=== PATIENT | female | born 2005 | race Caucasian/White ===

== ENCOUNTER 2024-07-04 13:47 | Emergency (ER) | payer MEDICAID, SELFPAY ==
[2024-07-04] VITALS (16 sets, daily range): BP systolic 112–123; BP diastolic 68–86; PULSE 100–132; RESP 12–28; TEMP 36.7–36.9; O2SAT 98–100
--- NOTE | 2024-07-04 14:00 | RT.EKG_ITS ---
APPROVED REPORT Exam: Resting ECG Reason for Exam: CHEST PAIN Patient Location: E HR:117 bpm ECG Measurements Heart Rate 117 AXIS VT 140 P 49 QRSd 68 QRS 27 QT 312 T 19 QTc 436 Conclusion Sinus tachycardia 117 normal axis no stemi
--- NOTE | 2024-07-04 14:27 | W.ED.GENAD ---
Discharge Plan Disposition Patient Disposition: Home Discharge Details Clinical Impression: Vomiting affecting , Chest pain, Shortness of breath Primary Care Provider: Unknown,Unknown ED Provider: Nolvia Rogers Home Meds and New Rx's Prescriptions: New ondansetron 4 mg tablet,disintegrating 4 mg PO Q6H PRN (Reason: nausea and vomiting) Qty: 30 0RF Discharge Instructions Stand Alone Forms: Work Release Discharge Data Discharge Date/Time-TO BE ENTERED AT DEPARTURE: 07/04/24 15:39 HPI General Date/Time Provider Initiated Documentation: 07/04/24 14:05. Limitations to Documentation: no limitations. Information obtained by: patient. HPI Narrative: 27-year-old female with no significant past medical history currently G1, P0 at 19 weeks followed by [facility] presents for evaluation of nausea vomiting and cramping. She reports that starting last night had vomiting. She had persistent vomiting throughout the night. She does not have any nausea medication at home. She has not had vomiting problems throughout her . She denies any diarrhea. She does report multiple sick contacts in her family that have had vomiting illness recently. She reports this morning she was having some cramping in her lower back or lower abdomen. Denies any dysuria, denies any bleeding. Does have active movement. She also endorses some chest pain that has been ongoing for the last hour. She has difficulty describing the chest pain. It is not associated with shortness of breath that she has noted that she has been having shortness of breath throughout her . Related Data Home Medications ?Medication ?Instructions ?Recorded ?Confirmed ondansetron 4 mg disintegrating 4 mg PO Q6H PRN nausea and 07/04/24 tablet vomiting #30 tabs Previous Rx's ?Medication ?Instructions ?Recorded ondansetron 4 mg disintegrating 4 mg PO Q6H PRN nausea and 07/04/24 tablet vomiting #30 tabs Allergies Allergy/AdvReac Type Severity Reaction Status Date / Time adhesive Allergy Mild rash Verified 07/04/24 13:57 General Stated Complaint: Nausea/Vomit/Diar SHWETA: 3 Exam Narrative Exam Narrative: Review of Systems: All systems reviewed & are unremarkable except as noted in HPI and below Well-developed, no acute distress NCAT Moist mucous membranes Tachycardic Unlabored respiratory effort clear bilaterally Nondistended abdomen, soft nontender. heart rate 156 Extremities w/o edema Course Vital Signs Vital signs: Vital Signs Temperature 36.7 C 07/04/24 13:51 Pulse 132 H 07/04/24 13:51 Respiratory Rate 20 07/04/24 13:51 Blood Pressure 122/86 07/04/24 13:51 Pulse Oximetry 98 07/04/24 13:51 Temperature 36.7 C 07/04/24 13:51 Temperature Source Temporal Artery Scan 07/04/24 13:51 Pulse 132 H 07/04/24 13:51 Respiratory Rate 20 07/04/24 13:51 Blood Pressure 122/86 07/04/24 13:51 Blood Pressure Position Sitting 07/04/24 13:51 Pulse Oximetry 98 07/04/24 13:51 Oxygen Delivery Method Room Air 07/04/24 13:51 Oxygen Flow Rate 0 07/04/24 13:51 Pain Level 3 07/04/24 13:51 Medical Decision Making Emergent evaluation of vomiting. Patient is also endorsing some lower back and lower abdomen cramping though she does not appear to have any signs of active labor. She is also endorsing some chest pain and shortness of breath. She has noted to be tachypneic. Initial differential includes dehydration, electrolyte derangement, viral GI illness, low suspicion for ACS or pulmonary embolism. Will get lab work. Give antiemetic and continue oral hydration. Lab work reviewed, mild leukocytosis though not concerning given . Electrolytes without derangement. Urinalysis without infection or bacteria opponent is undetectable. D-dimer elevation is not concerning given years criteria and adjusted cutoff for . The patient is tolerating p.o. Recommend starting Unisom and B6 as previously prescribed by her OB provider. I have also sent Zofran to the pharmacy as needed. I recommend close follow-up with her COMMUNITY DEVELOPMENT PLANNER as needed for any ongoing symptoms. Quality:SDOH Health Related Social Needs: No Data to Display PFSH All Active Problems (Updated 07/04/24 @ 15:27 by Nolvia Rogers MD) Shortness of breath (Acute) Chest pain (Acute) Vomiting affecting (Acute) Social History Smoking/Tobacco Use Status: Never Smoking risk assessment performed?: Yes Alcohol Intake: never Drug use: Never Substance use type: does not use
[2024-07-04 14:38] LABS: Abs Immature Grans 0.12 10^3/uL (0.0-0.06); Absolute Basophil Count 0.03 10^3/uL (0.0-0.2); Absolute Eosinophil Count 0.01 10^3/uL (0.0-0.7); Absolute Monocyte Count 0.56 10^3/uL (0.1-0.8); Basophils % 0.2 %; Eosinophils % 0.1 %; HGB 13.2 g/dL (11.2-15.7); Immature Grans % 0.9 %; Lymphocytes % 3.9 %; MCH 29.3 pg (27.0-33.0); MCV 89 fL (80-95); MPV 9.5 fL (8.0-11.0); Monocytes % 4.3 %; Neutrophils % 90.6 %; Platelet Count 311 10^3/uL (130-400); RDW 12.8 % (11.7-14.6); RDW-SD 42.1 fL; WBC 12.92 10^3/uL (4.4-10.8)
[2024-07-04 14:39] LABS: Absolute Neutrophil Count 11.71 10^3/uL (1.2-6.7)
[2024-07-04] MEDS: Ondansetron 4 MG/2 ML VIAL IVP (14:44)
[2024-07-04 14:49] LABS: Bilirubin Negative (Negative); Blood Negative (Negative); Clarity Clear (Clear); Glucose Negative (Negative); Ketones 15 mg/dL (Negative); Leukocyte Esterase Negative (Negative); Nitrite Negative (Negative); Specific Gravity >= 1.030 (1.005-1.025); Urobilinogen 0.2 mg/dL (Up to 0.2)
[2024-07-04 14:58] LABS: ALT 15 U/L (14-59); AST 17 U/L (15-37); Alkaline Phosphatase 50 U/L (46-116); BUN 10 mg/dL (7-18); Bilirubin, Total 0.38 mg/dL (0.2-1.0); CREATININE 0.8 mg/dL (0.55-1.02); Calcium 9.1 mg/dL (8.5-10.1); Chloride 102 mmol/L (98-107); Estimated GFR 108.11 (mL/min/1.73m2); Glucose 86 mg/dL (74-106); Magnesium 1.7 mg/dL (1.8-2.4); Potassium 3.9 mmol/L (3.5-5.1); Sodium 138 mmol/L (136-145); Total Protein 7.4 g/dL (6.4-8.2)
[2024-07-04 15:01] LABS: Troponin I < 4 ng/L (<or=51)
[2024-07-04 15:06] LABS: D-Dimer 863 ng/mlFEU (<500)
[2024-07-04] MEDS: Magnesium Oxide 400 MG TAB PO (15:27)
== END 2024-07-04 15:39 | disposition home or self-care (01) ==
PROVIDERS: Emergency Provider Emergency Medicine
DX: O21.0 Mild hyperemesis gravidarum (principal); Z3A.19 19 weeks gestation of pregnancy
CPT/HCPCS: 36415; 80053; 93005; 96374; 99284; 81003; 83735; 84484; 85025; 85379; 93010; J2405

== ENCOUNTER 2024-07-13 15:35 | Outpatient (CLI) | payer MEDICAID, SELFPAY ==
[2024-07-13 15:24] LABS: HCT 37.8 % (36.0-46.0); HGB 12.5 g/dL (11.2-15.7); MCH 29.5 pg (27.0-33.0); MCHC 33.1 % (32.0-36.0); MCV 89 fL (80-95); MPV 9.1 fL (8.0-11.0); Platelet Count 404 10^3/uL (130-400); RBC 4.24 10^6/uL (3.93-5.22); RDW 12.9 % (11.7-14.6); WBC 17.82 10^3/uL (4.4-10.8)
== END 2024-07-13 15:36 | disposition home or self-care (01) ==
LOC: LBO 15:41
PROVIDERS: Visit Provider Advanced Practice Midwife
DX: Z34.92 Encounter for supervision of normal pregnancy, unspecified, second trimester (principal)
CPT/HCPCS: 36415; 85027

== ENCOUNTER 2024-07-13 15:38 | Outpatient (REF) | payer MEDICAID, SELFPAY ==
[2024-07-13 17:09] LABS: *AMPHETAMINES SCREEN URINE Negative (Negative); *BARBITURATES SCREEN URINE Negative (Negative); *BENZODIAZEPINES SCREEN URINE Negative (Negative); Cannabinoids THC Negative (Negative); Cocaine Screen,Urine Negative (Negative); METHADONE URINE SCREEN Negative (Negative); OPIATES URINE SCREEN Negative (Negative)
[2024-07-13 17:10] LABS: Tricyclic Antidepressants Negative (Negative)
[2024-07-15 11:30] LABS: Fentanyl Scr w/Rfx Confirm Negative ng/mL (<1)
[2024-07-21 11:42] LABS: Buprenorphine Negative ng/mL (Cutoff: 5.0); Norbuprenorphine Negative ng/mL (Cutoff: 2.5)
== END 2024-07-13 15:39 | disposition home or self-care (01) ==
LOC: LBN 15:38
PROVIDERS: Visit Provider Advanced Practice Midwife
DX: Z34.92 Encounter for supervision of normal pregnancy, unspecified, second trimester (principal); Z3A.20 20 weeks gestation of pregnancy
CPT/HCPCS: 80307; 80348; 87086; 87480; 87510; 87660

== ENCOUNTER 2024-07-25 01:52 | Outpatient (CLI) | payer MEDICAID, SELFPAY ==
--- NOTE | 2024-07-25 06:45 | DI.US_ITS ---
Exam(s) US OB 2-3 TRIMESTER EXAM: US OB 2-3 TRIMESTER CLINICAL HISTORY: SURVEY,Z34.90. TECHNIQUE: Transabdominal obstetrical ultrasound was performed. COMPARISON: No exams were available for comparison FINDINGS: There is a single viable intrauterine gestation with cardiac activity identified-148 bpm. Amniotic fluid: There is a normal amount of amniotic fluid. Placental location: The placenta is posterior grade 1,with no evidence of placenta previa.The distanc e from the tip of the placenta to the internal cervical os is 6.9 cm. The distant from the margin of the placenta to the cord insertion is 3.9 cm. ANATOMY: A 3 vessel umbilical cord is seen. A four-chamber cardiac view was obtained. Right and left ventricular outflow tracts were imaged. There are no obvious abnormalities of the spinal column evident. There is no obvious abnormal ity of the anterior abdominal wall. stomach and urinary bladder are identified and there is no evidence of hydronephrosis. No abnormalities of the upper lip region are identified. No evidence of choroid plexus cysts i n the brain. Was not able to adequately visualize the left upper extremity primarily the left hand during this exa mination. Dating parameters place this at approximately 22 weeks and 5 days gestational age. BPD measures 23 weeks and 0 days HC measures 23 weeks and 0 days AC measures 22 weeks and 3 days FL measures 22 weeks and 1 day Estimated weight is 501 gm-1 pound, 2 ounces Fetus is at the 42 percentile on the Hadlock scale. IMPRESSION:: Single viable intrauterine gestation which is approximately 22 weeks and 5 days gestati onal age, implying an RUFINO of 11/23/2024. There are no obvious anomalies evident on today's study. However, it was not possible during to day's exam to visualize the distal aspect of the left upper extremity and this patient has been sched uled to return for further imaging on 07/29/2024. The placenta is posterior with no evidence of placenta previa. There is a normal amount of amniotic fluid. DATA REPOSITORY:
== END 2024-07-25 02:12 ==
LOC: DI 01:53
PROVIDERS: Visit Provider Advanced Practice Midwife
DX: Z34.92 Encounter for supervision of normal pregnancy, unspecified, second trimester (principal); Z3A.27 27 weeks gestation of pregnancy
CPT/HCPCS: 76805

== ENCOUNTER 2024-07-29 00:17 | Outpatient (CLI) | payer MEDICAID, SELFPAY ==
--- NOTE | 2024-07-29 | DI.US_ITS ---
Exam(s) US OB F/U FACIAL/LVOT/RVOT EXAM: US OB F/U FACIAL/LVOT/RVOT CLINICAL HISTORY: F/u survey, Lt arm/hand. COMPARISON: US US OB 2-3 TRIMESTER from 07/25/2024 TECHNIQUE: Transabdominal obstetrical ultrasound performed. FINDINGS: Sonographic images demonstrate a single intrauterine gestation. Heart Rate: 151 position: Breech Placental location: Posterior no evidence of previa. The of upper extremities were well seen on today's exam. No abnormality is demonstrated. profile appears normal. Amniotic fluid : Amount of fluid is visually within normal limits. IMPRESSION: No abnormality identified in the bilateral upper extremities. DATA REPOSITORY:
--- OUTSIDE RECORDS SUMMARY | 2024-07-29 00:20 | XMS_ITS | Encounter Summary ---
Author Organization [facility] [place] [address] Care Team Providers Care Melt Superintendant Name Role Phone Edilma Cornejo MD Primary Care Provider [phone] Encounter Details Date Type Department Care Team (Late st Contact Info) Description 07/07/2024 Telephone Obstetrics [place] [phone] Nighat Edwards Social History Tobacco Use Types Packs/Day Years Used Date Smoking Tobacco: Never Passive Smoke Exposure: Yes Smokeless Tobacco: Never Alcohol Use Standard Drinks/Week Comments No 0 (1 standard drink = 0.6 oz pur e alcohol) B1300 Health Literacy Answer Date Recor ded How often do you need to hav e someone help you when you read instructions, pamphlets, or other written material from your doctor or pharmacy? Never 04/15/2024 [facility] Utilities Answer Date Recorded In the past 12 months has e electric, gas, oil, or water company threatened to shut off services in your home? No 04/15/2024 Humiliation, Afraid, Rape, and Kick questionnair e Answer Date Recorded Within the last year, have y ou been afraid of your partner or ex-partner? No 04/15/2024 Within the last year, have y ou been humiliated or emotionally abused in other ways by your partner or ex-partner? Patient declined 04/15/2024 Within the last year, have y ou been kicked, hit, slapped, or otherwise physically hurt by your partner or ex-partner? No 04/15/2024 Within the last year, have y ou been raped or forced to have any kind of sexual activity by your partner or ex-partner? No 04/15/2024 Overall Financial Resource Strain (CARDIA) Answe r Date Recorded How hard is it for you to pa y for the very basics like food, housing, medical care, and heating? Patient declined 04/15/2024 Hunger Vital Sign Answer Date Recorded Within the past 12 months, y ou worried that your food would run out before you got the money to buy more. Patient declined Within the past 12 months, t he food you bought just didn't last and you didn't have money to get more. Patient declined 06/2023 PRAPARE - Transportation Answer Date Re corded In the past 12 months, has l ack of transportation kept you from medical appointments or from getting medications? No 06/2023 In the past 12 months, has l ack of transportation kept you from meetings, work, or from getting things needed for daily living? No 04/15/2024 Housing Stability Vital Sign Answer Vu e Recorded In the last 12 months, was t here a time when you were not able to pay the mortgage or rent on time? Patient declined 04/15/20 24 In the past 12 months, how m any times have you moved where you were living? 3 04/15/2024 At any time in the [facility] were you [facility] or living in a assisted (including now)? No 04/15/2024 IPV Inpatient Questions Answer Date Recorded Does Anyone Try to Keep You From Having Contact with Others or Doing Things Outside Your Home? no 06/07/2023 Feels Threatened by Someone no 05/16 Feels Unsafe at Home or Work/School no 06/07/2023 Physical Signs of Abuse Present no 06/07/2023 Estimated Date of Delivery Comme nts Yes 11/25/2024 Based on last me nstrual period of 02/19/2024 Sex and Gender Information Value Date Recorded Sex Assigned at Female 07/24/2023 9:35 AM EST Gender Identity Female 07/24/2023 9:35 AM EST Sexual Orientation Straight 07/24/2023 9: 35 AM EST documented as of this encounter Plan of Treatment Upcoming Encounters Date Type Department Care Team (Late st Contact Info) Description 08/08/2024 9:00 AM EST Appointment [address] [phone] Umu Saucedo RN 08/15/2024 10:45 AM EST TH Visit (TeleHealth) Obstetrics and Gynecology at [place] [phone] Dara Kelley MD [facility] OBSTETRICS [place] [address] 11/25/2024 Hospital [place] [phone] Dara Gonzalez MD [facility] OBSTETR[facility] [place] [address] 07/12/2025 1:40 PM EST Office Visit Ophthalmology at [place] [address] Bina Agrawal OD [facility] [place] [address] documented as of this encounter Visit Diagnoses Not on filedocumented in this encounter Care Teams Melt Superintendant Relationship Specialty Start Date End Date Edilma Cornejo MD [facility] [place] [address] PCP - General 12/05/22 documented as of this encounter
--- OUTSIDE RECORDS SUMMARY | 2024-07-29 00:20 | XMS_ITS | Encounter Summary ---
Author Organization [facility] Chantal [place] [address] Care Team Providers Care Gaming Commissioner Name Role Phone Edilma Cornejo MD Primary Care Provider [phone] Encounter Details Date Type Department Care Team (Latest Contact Info) Description 07/06/2024 Travel Social History Tobacco Use Types Packs/Day Years [...] from your doctor or pharmacy? Never 04/15/2024 [facility] Utilities Answer Date Recorded In the past 12 months has e [employer] gas, oil, or water [employer] threatened to shut off services in your [...] any time in the past 12 m [facility], were you homeless or living in a senior living (including now)? No 04/15/2024 IPV Inpatient Questions [...] Info) Description 08/08/2024 9:00 AM EST Appointment [address] [phone] Umu Saucedo, RN 08/15/2024 10:45 AM EST TH Visit (TeleHealth) Obstetrics [place] [phone] Dara Kelley MD [facility] OBSTETRICS [place] [address] 11/25/2024 Hospital Encounter Birthing [place] [phone] Dara Gonzalez MD [facility] OBSTETRICS [place] [address] 07/12/2025 1:40 PM EST Office Visit Ophthalmology at [place] [phone] Bina Agrawal, JONELLE [facility] [place] [address] documented as of this encounter Visit Diagnoses Not on filedocumented in this encounter Care Teams Gaming Commissioner Relationship Specialty Start Date End Date Edilma Cornejo MD [facility] [place] [address] PCP - General 12/05/22 documented as of this encounter
--- OUTSIDE RECORDS SUMMARY | 2024-07-29 00:20 | XMS_ITS | Encounter Summary ---
Author Organization [facility] [place] [address] Care Team Providers Care Director Operating Room Name Role Phone Edilma Cornejo MD Primary Care Provider [phone] Encounter Details Date Type Department Care Team (Late st Contact Info) Description 07/12/2024 1:00 PM EST Office Visit Obstetrics [place] [phone] Norah Lakhani, TECHNOLOGY INTERNSHIP Anxiety Social History Tobacco Use Types Packs/Day Years [...] from your doctor or pharmacy? Never 04/15/2024 [facility] Utilities Answer Date Recorded In the [...] any time in the past 12 [facility], [facility] you [facility] or living in a [facility] (including now)? No 04/15/2024 [facility] IPV Inpatient Questions Answer Date Recorded Does [...] AM EST documented as of this encounter Progress Notes * LesviaGetachewtamiko Matias, TECHNOLOGY INTERNSHIP - 07/12/2024 1:00 PM EST Outpatient Therapy Visit Note Time Spent: 50 minutes Additional Attendee(s): (identify by relationship to pt.) JUDY Christensen student, patient provides verbal consent for student to join visit CHIEF COMPLAINT/DIAGNOSIS: (symptoms, problem, or other factors providing rationale for today's encounter) Anxiety SUBJECTIVE: Ely is a 19-year-old patient who is 20 weeks and 4 days . Pt reports that the last couple weeks have been very stressful. Ely is planning to move out of her Grandparent's house on Thursday and into her older sister's house with her boyfriend. Pt shares that she will have to transfer her OBGYN care to [facility]. SW encouraged pt to ask new OB if they have mental health support. If not, this quality analyst/technical writer can refer her to counseling associates. SW inquired about how pt. is doing with all this change and Ely reports that she's ready to move out of her grandparents' house because they are always questioning and judging her decisions. Ely reports that this negatively impacts how she feels and makes her feel like, ???a failure?? . Ely shares that she put up a boundary that she does not want her father around her baby unless he is clean. Ely reports that Grandparents didn't agree with that. SW shared that becoming a parent can be healing; a chance to do things differently than how you were raised and keep baby safe from things you were exposed to. Ely was receptive and reports that she is learning to trust her decisions. Ely reports that she does want a relationship with Grandparents but ultimately keeping her baby safe is top priority. Ely shares that she has not spoken with Roland in a month and he hasn't been to an appointment sinceshe was 8 weeks . She shares that she has not initiated contact and he hasn't tried to reach out. Ely shares that she heard from a mutual friend that Roland believes he might not be the father. When SW asked how pt is feeling about this, Ely shares that she does not want him involved if he doesn't want to be. Ely reports that she is hopeful for the future and confident that her baby willhave a loving home. At this point, Ely had a big smile on her face and was excited to share that they have decided on a name for their baby. Ely inquired about the potential of not putting Roland on the certificate but instead putting her boyfriend's name. SW encouraged pt to speak to [place] transactional paralegal before she does this. GOLDEN will send over contact information for [place] transactional paralegal and ???lawline.?? SW encouraged Ely to prioritize self-care this next week and try to pick one obtainable goal. Ely will work towards allowing herself one day to sleep in and not set an alarm. TREATMENT MODALITY: Supportive Counseling OBJECTIVE: Develop coping skills to help with anxiety Navigating co-parenting with father of the baby Processing grief and trauma that she has experienced Building confidence in enforcing boundaries PERTINENT MENTAL STATUS EXAM: Behavior: Calm, cooperative Mood: Normal Affect: appropriate Thought Process: Linear, goal directed Associations: Intact Orientation: X4 Attention/Concentration: WNL Insight: WNL Judgment: WNL Safety Risk assessment: No S/I or H/I indicated ASSESSMENT: (include progress toward goals since last visit and patient's capacity to participate and benefit from continued treatment). Ely is a 19-year-old patient who is 20 weeks and 4 days . Ely shares excitement about finalizing a name for her baby. Ely presents to session overwhelmed with the stressors in her life; moving this week and the constant judgement from grandparents who don't approve of her boyfriend. Elyis working on prioritizing her self-care and learning to trust the decisions she makes. PLAN: Revised goals or interventions: Patient is transitional OB care. Patient plans to discuss resources available with new OB, if none available, this quality analyst/technical writer will place referrals. Currently plan for 2 more visit. [x] No change in estimated length of treatment. Safety Risk Management: (specify plan to manage self harm/suicide/homicide risk findings if present): No indication fo SI/HI. Below discussed with patient as resources available: Call 911 in an Emergency. Call or text 631 or chat [email or web address] For regional Mental Health Crises Services: [facility] Crisis Line text or call Visit [email or web address] for further information [place] Call your local community crisis line at: [place]: Counseling Service [facility] [phone] [place]: [facility] [phone] [place]: [facility] [phone] [place]: [facility] [phone] [place]: [facility] [phone] [place] Guaj[place]: [facility] and Support [phone] [place]: [facility] [phone] on weekdays 8AM-4:30PM and [phone] on nights and weekends [place]: [facility] [place]: [facility] [phone] [place]: [facility] Services [phone] [place]: [facility] Services, [place]: [facility] [place]: [facility] Next Appt: 3-4 weeks Assigned Homework: Mindfulness tools, Self-care Patient Instruction/Education Provided: Verbal Patient understands the plan? [x} Yes * Jazzy Estrada LICSW - 07/12/2024 1:00 PM EST I have reviewed patient chart and discussed this case with JUDY Burgess. I am in agreement with the plan of care as documented. LEWIS Reis Clinical Plans Examiner Department of Psychiatry [facility] [phone] documented in this encounter Plan of Treatment Upcoming Encounters Date Type Department Care Team (Late st Contact Info) Description 08/08/2024 9:00 AM EST Appointment [address] [phone] Umu Saucedo, RN 08/15/2024 10:45 AM EST TH Visit (TeleHealth) Obstetrics and Gynecology at [place] [phone] Dara Kelley MD [facility] OBSTETRICS [place] [address] 11/25/2024 Hospital Encounter Birthing [place] [phone] Dara Gonzalez MD [facility] OBSTETRICS [place] [address] 07/12/2025 1:40 PM EST Office [place] [phone] Bina Agrawal OD [facility] [place] [address] documented as of this encounter Visit Diagnoses Diagnosis Anxiety Anxiety state, unspecified documented in this encounter Care Teams Director Operating Room Relationship Specialty Start Date End Date Edilma Cornejo MD [facility] [place] [address] PCP - General 12/05/22 documented as of this encounter
--- OUTSIDE RECORDS SUMMARY | 2024-07-29 00:20 | XMS_ITS | Clinical Summary ---
Author Organization [facility] Address [facility] [place] [address] Care Team Providers Care Hvac Installer Name Role Phone Edilma Cornejo MD Primary Care Provider [phone] Allergies Active Allergy Reactions Criticality Noted Date Comments Adhesive Bandage Rash Low 12/01/2019 Fabric band-aids Medications Medication Sig Dispensed Refills Start Date End Date Status albuteroL 90 mcg/actuation HFA Aerosol Inhaler Inhale 2 puffs into the lungs every 4 hours as needed for Wheezing. Use with spacer 1 each 5 05/29/2023 Active vitamin with zrluzovo-Pr-Fibx-FA Tablet Take 1 tablet by mouth daily. Active Doxylamine Succinate (Unisom, doxylamine,) 25 mg Tablet Take 1 tablet by mouth nightly. 30 tablet 3 06/02/2024 Active Additional Information Patient not taking.Reported on 07/06/2024 pyridoxine, Vitamin B6, (Vitamin B6) 50 mg tablet Take 1 tablet by mouth daily. 30 tablet 3 06/02/2024 Active Additional Information Patient not taking.Reported on 07/06/2024 Active Problems Problem Noted Date Diagnosed Date care 04/15/2024 Overview (06/02/2024): PNC team: Pod [x] Centering - offered Support person: Roland relationship: father of baby [x] Dating confirmed [x] Blood products accepts [x] Social work/CHW needs: Referred NOB lab review: [x] NOB labs reviewed (T&S, hemogram, Hep B, Hep C, HIV, syphilis, RI) [x] GC/CT [x] Pap- Defer- <21 & no risk factors [x] Urine Cx Risk based labs/meds: [x] ASA Not indicated [x] Screening HgA1c Indicated; reviewed [x] [x] TSH Indicated; reviewed [x] Genetics: Genetics screen: Negative screening questionnaire Carrier screening: Referral to genetics for expanded carrier screening sent, result reviewed [] Aneuploidy screening: NIPT; reviewed [x] 2nd trimester results review: [] Morphology scan screening [] 1 hr GTT (24-28) [] Hemogram [] Repeat syphilis 3rd Trimester: [x] Anesthesia consult: Referred []GBS: PCN allergy: No [] repeat GC/CT if indicated Vaccines: [] TDaP (27-36) [x] Flu vaccine (in season) [] RSV vaccine administered (32-36.6 in season) Counseling [] Childbirth education: [] Contraception (Tubal papers): [] Feeding plan: [] Vp Customer Development: [] meds (hep b, abx, vitk): [] Circumcision: [] planning: [] preferences: unmedicated vaginal delivery Chlamydia infection affecting in first trimester 04/15/2024 Overview (04/21/2024): [facility] 2024. Underwent treatment and partner testing/treatment. Negative SONIDO. [ ] needs 32wk repeat STI screen Assessment & Plan (04/15/2024 4:50 PM EDT): SONIDO performed on 04/15/24 (result pending). Plan for repeat STI testing during second and third trimesters Housing instability 04/15/2024 Overview (04/15/2024): Currently living with grandmother although she is not technically allowed to because she is not on the lease. Father of baby is not able to live with her. She has been looking into alternatives but is overwhelmed. Assessment & Plan (04/15/2024 4:50 PM EDT): Referral placed to social work for resources and support. Asthma 04/15/2024 Overview (04/15/2024): Since childhood; less frequent episodes as adult. Never been hospitalized for exacerbation that she knows of. Occasional PRN albuterol inhaler use. Generalized anxiety disorder 05/19/2023 Overview (04/15/2024): Feels anxiety is stable. Not currently on medications. Engaged in psychotherapy in the past and found it helpful. Open to starting again this . Assessment & Plan (04/15/2024 4:51 PM EDT): Referral placed for [facility] behavioral health for psychotherapy and support Subclinical hypothyroidism 02/06/2022 Overview (06/02/2024): Most recent TSH 3.13 (06/07/2023), FT4 1.21 (10/07/2022) TPO antibody titer >1000 on 02/14/[address] Ponce who suspects she will likely transition to overt hypothyroidism in the near future given highly elevated TPO antibody titer. Not on thyroid medications pre-. Trimester Date TSH Dose 1st 04/15/24 1.87 2nd 06/02/24 3.10 3rd Target Range for TSH in 1st trimester 0.1-2.5 Target Range for TSH in 2nd trimester 0.2-3.0 Target Range for TSH in 3rd trimester 0.3-3.0 Assessment & Plan (04/15/2024 4:54 PM EDT): - Plan for qTrimester TSH screen - Started on levothyroxine 50mcg daily at first visit Depression 10/05/2018 Overview (04/15/2024): Feels mood is stable. Not currently on medications. Engaged in psychotherapy in the past and found it helpful. Open to starting again this . 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 Dedicated scoliosis protocol radiographs last performed 05/2020. No history of surgeries Assessment & Plan (04/15/2024 4:56 PM EDT): Anesthesia consult placed to assess regional anesthesia capabilities for intrapartum planning. Conductive hearing loss, uni lateral with unrestricted hearing on the contralateral side 09/06/2013 Overview (04/15/2024): left with conductive hearing loss; right WNL. Not currently needing hearing aid. Hemivertebra 08/18/2011 Estimated Date of Delivery Comme nts Yes 11/25/2024 Based on last me nstrual period of 02/19/2024 Resolved Problems Problem Noted Date Diagnosed Date Resolved Date Mild recurrent major depression 05/18/2023 04/15/2024 Encounter for female control 10/26/2019 04/15/2024 Overview (10/26/2019): Nexplanon inserted 10/2018 Uses condoms for barrier contraception in addition to nexplanon, these are provided at visits Acne vulgaris 10/26/2019 04/15/2024 Overview (10/26/2019): Facial acne Has expressed interest in trialing medicated formulations, has not consistently used these in the past Benzaclin prescribed 2018 Acute right-sided low back p ain without sciatica 12/20/2018 04/15/2024 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 Both parents have history of drug use. Wears hearing aid 09/06/2013 04/15/2024 Overview (04/23/2016): Wears hearing aid in left year d/t conductive hearing loss. Audiology exam 04/2015 with normal hearing in left ear, does not need to wear hearing aid. F/u with audiology in 1 yr. CIS - Chronic mastoiditis 01/21/2010 Overview (08/20/2010): Left-sided chronic mastoiditis with adhesions, possible cholesteatoma based on Mar [address] findings - involvement of head of ossicles likely contibuting to conductive hearing loss. Sleep disturbances 01/21/2010 4 Overview (10/26/2019): 04/2015: Discussed sleep hygiene, no screens 1 hour before bed 2019: Discussed sleep hygiene again, reinforced limiting screen time before bed Assessment & Plan (01/24/2022 12:22 PM EDT): Sleep hygiene reviewed. Discussed regular meal times, wake and sleep times, outdoor activity Discouraged screen time prior to bed Consider clonidine prn CIS - Acute otitis media 06/15/200609/2014 Overview (08/20/2010): Recurrent, s/p tubes CIS - Constipation 06/15/2006 5 Overview (08/20/2010): Miralax CIS - Bacterial infection of skin 05/29/2005 04/18/2015 Overview (08/20/2010): furuncles-MRSA CIS - Healthcare Maintenance 2004 04/18/2015 Overview (08/20/2010): History of 29 week gestational age prematurity CIS - Congenital scoliosis d ue to bony malformation 06/15/2003 04/15/2024 Overview (08/20/2010): Discovered in period due to resp distress. Normal renal U/S. 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 Followed annually by Dr. Garay. Speech delay 04/18/2015 Bronchopulmonary dysplasia 1 06/18/2014 Encounters Date Type Department Care Team Description 07/18/2024 11:15 AM EST TH Visit (TeleHealth) Obstetrics [place] [address] Rosaline Jacinto MD Premature 07/12/2024 1:00 PM EST Office Visit Obstetrics [place] [address] Norah Lakhani, BARREL CHARRER HELPER Anxiety 07/12/2024 Travel 07/07/2024 Telephone Obstetrics [place] [address] Nighat Edwards 07/06/2024 4:00 PM EST Routine Obstetrics [place] [address] Jasmina Harvey APRN GA: 19w5d 07/06/2024 3:00 PM EST Office Visit Ophthalmology at [place] [phone] Bina Agrawal, OD Emmetropia 07/06/2024 Travel 07/05/2024 Telephone Obstetrics [place] [address] Halle Marquez, RN 07/04/2024 Telephone Obstetrics [place] [address] Halle Marquez, RN 06/30/2024 11:45 AM EST Laboratory Appointment Lab [address] [place] [address] with 18 completed weeks gestation; Fatigue, unspecified type 06/30/2024 10:58 AM EST - 06/30/2024 11:59 PM EST Hospital Encounter Non-[place] [address] Chest pressure Discharge Disposition: Home 06/30/2024 9:00 AM EST Routine Obstetrics [place] [phone] Mariola Escamilla MD GA: 18w6d 06/30/2024 Travel 06/20/2024 Home Care Visit [address] [address] Umu Saucedo RN TELEPHONE ENCOUNTER 06/02/2024 11:15 AM EST Laboratory Appointment Lab [address] [place] [phone] care in first trimester 06/02/2024 9:00 AM EST Routine Obstetrics and Gynecology at [place] [phone] Satinder Livingston MD GA: 14w6d 06/02/2024 Telephone Obstetrics [place] [address] Ling Sewell, RN 06/02/2024 Travel 05/30/2024 Telephone Obstetrics and Gynecology at [place] [phone] Lora Young, RN 05/25/2024 8:18 PM EST - 05/25/2024 10:48 PM EST [place] [phone] Konstantin Rodrigues MD Viral URI Discharge Disposition: Home 05/25/2024 Travel 05/19/2024 2:00 PM EST Notes Only Obstetrics [place] [address] Norah Lakhani, BARREL CHARRER HELPER 05/19/2024 Notes Only Obstetrics [place] [address] Franky Sanchez 05/19/2024 Travel 05/13/2024 1:40 PM EST Routine Obstetrics [place] [address] Myriam King APRN GA: 12w0d 05/13/2024 Travel 05/11/2024 Transcribe Orders eDH Incoming Referrals [phone] [facility] care, antepartum 05/04/2024 3:00 PM EST Office [place] [address] 05/04/2024 11:21 AM EST Anesthesia [place] [address] Nuzhat Cavazos MD 05/04/2024 Travel 05/02/2024 1:00 PM EST Office Visit [facility] [place] [address] Edilma Patel, PA Routine screening for STI (sexually transmitted infection) 05/02/2024 Travel 04/28/2024 11:00 AM EST Notes Only Obstetrics [place] [address] Norah Lakhani, BARREL CHARRER HELPER 04/28/2024 Notes Only Obstetrics [place] [address] Franky Sanchez 04/28/2024 Travel from Last 3 Months Immunizations Name Administration Dates Next Due Covid-19 (Pfizer Comirnaty) 12yrs+ (9201-0244) 05/01/2023 Covid-19 Bivalent (Pfizer Co mirnaty) 12yrs+ (9519-9040) 02/03/2023 Covid-19 Monovalent (Pfizer Comirnaty tran cap) 12yrs+ (8119-0542) 03/27/2021,03/07/2021 DTaP 06/20/2008,04/10/2005 DTaP/Hep B/IPV 2004,2004,2004 HIB PRP-T Conjugate (ActHIB, Hiberix, OmniHib) 04/10/2005,2004,2004,04/26 HPV 9-Valent (Gardasil 9) 04/22/2016,04/17/2015 Hepatitis A Pediatric/Adoles cent (Havrix, Vaqta) 05/12/2017,04/17/2015 Influenza (FluMist) Quadriva lent, Intranasal LIVE 04/17/2015 Influenza Quadrivalent, Pres ervative Free 05/01/2023,04/22/2022,04/03/2021,04/30,04/12/2019,03/29/2018,05/12/2017 ,04/22/2016 Influenza Trivalent, Preservative Free 4 Influenza Vaccine, Whole 04/30/2006,04/16,04/10/2005,07/12 MMR Vaccine LIVE 06/20/2008,01/16/2005 Meningococcal ACWY Polysacch aride Conjugate (Menactra) 04/30/2020 Meningococcal Acwy, Unspecif ied Formulation 04/17/2015 Palivizumab 2004,2004,2004 Pneumococcal 7-Valent Conjug ate (Prevnar 7) 07/18/2005,2004,2004,04/26 Polio Inactivated (IPOL) 06/20/2008 Tdap (Adacel, Boostrix) 04/17/2015 Varicella LIVE (Varivax) 06/20/2008,01/16/2005 Family History Medical History Relation Comments Attention Deficit Hyperactiv ity Disorder Father Bipolar Disorder Father Depression Father Learning Disorder Father Other Father Traumatic brain injury from car accident resulting in left sided paralysis Substance Use Disorder Father Suicide Father Suicide attempts Depression Maternal Aunt Bipolar Disorder Maternal Grandmother Breast Cancer Maternal Grandmother Depression Maternal Grandmother Hyperlipidemia Maternal Grandmother Hypertension Maternal Grandmother Type 2 Diabetes Maternal Grandmother Myocardial Infarction Maternal Uncle 2/2 LA Anxiety Disorder Mother Depression Mother Anxiety Disorder Paternal Grandmother Breast Cancer Paternal Grandmother Cataracts Paternal Grandmother Depression Paternal Grandmother Lactose Intolerance Sister Amblyopia Neg Hx Cancer Neg Hx Celiac Disease Neg Hx Diabetes Neg Hx Glaucoma Neg Hx Heart Disease Neg Hx Inflammatory Bowel Disease Neg Hx Macular Degeneration Neg Hx Migraines Neg Hx Retinal Detachment Neg Hx Strabismus Neg Hx Thyroid Disease Neg Hx Relation Status Comments Father Alive Maternal Aunt Maternal Grandmother Maternal Uncle Mother Alive Paternal Grandfather Paternal Grandmother Alive Sister Social History Tobacco Use Types Packs/Day Years Used Date Smoking Tobacco: Never Passive Smoke Exposure: Yes Smokeless Tobacco: Never Tobacco Cessation:Counseling Given: Not Answered Alcohol Use Standard Drinks/Week Comments No 0 (1 standard drink = 0.6 oz pur e alcohol) B1300 Health Literacy Answer Date Recor ded How often do you need to hav e someone help you when you read instructions, pamphlets, or other written material from your doctor or pharmacy? Never 04/15/2024 [facility] Utilities Answer Date Recorded In the past 12 months has e electric, gas, oil, or water [email or web address] threatened to shut off services in your [...] any time in the past 12 m [facility], were you homeless or living in a penitentiary (including now)? No 04/15/2024 DH IPV Inpatient [...] Orientation Straight 07/24/2023 9: 35 AM EST Last Filed Vital Signs Vital Sign Reading Time Taken Comments Blood Pressure 108/64 07/06/2024 3:40 PM EST Pulse 115 05/25/2024 8:15 PM EST Temperature 37.4 ??C (99.3 ??F) 05/25/2024 8:15 PM ES T Respiratory Rate 20 05/25/2024 8:15 PM EST Oxygen Saturation 100% 05/25/2024 8:15 PM EST Inhaled Oxygen Concentration - - Weight 55.5 kg (122 lb 4.8 oz) 07/06/2024 3:40 P M EST Height 149.9 cm (4' 11) 05/25/2024 8:15 PM EST Body Mass Index 24.7 05/25/2024 8:15 PM EST Plan of Treatment Upcoming Encounters Date Type Department Care Team (Late st Contact Info) Description 08/08/2024 9:00 AM EST Appointment [address] [address] Umu Saucedo, RN 08/15/2024 10:45 AM EST TH Visit (TeleHealth) Obstetrics [place] [phone] Dara Kelley MD [facility] OBSTETRICS [place] [address] 11/25/2024 Hospital [place] [phone] Dara Gonzalez MD [facility] OBSTETRICS [place] [address] 07/12/2025 1:40 PM EST Office [place] [phone] Bina Agrawal OD [facility] [address] Health Maintenance Due Date Last Done Comments Pneumococcal Vaccine: At-Ris k 5-49yrs (1 of 2 - PCV) 01/02/2023 07/18/2005, 2004, 2004, Additional history exists Covid-19 Vaccine ( - 2023-2 5 season) 2024 05/01/2023, 02/03/2023, 03/27/2021, Additional history exists Preventative Health visit 07/22/20242023, 04/22/2022, 12/26/2020, Additional history exists Chlamydia Screening 04/15/2025 04/15/2024, 11/12/2023, 07/22/2023, Additional history exists Tetanus/Diphtheria/Pertussis Vaccines (7 - Td or Tdap) 04/17/2025 04/17/2015, 06/20/2008, 04/10/2005, Additional history exists Hepatitis B vaccine (0-59 yrs) Completed 0 2004, 2004, 2004 HPV vaccine Completed 04/22/2016, 04/17/2015 HIV screen Completed 04/15/2024, 12/2023, 03/11/2023, Additional history exists Hepatitis C Screening Completed 04/15/2024 , 03/11/2023, 04/22/2022 Influenza (Flu) vaccine Completed 04/15/20, 05/01/2023, 04/22/2022, Additional history exists RSV Vaccine (No Doses Required) Completed Procedures Procedure Name Priority Date/Time Associated Diagnosis Comments VAGINITIS/OSIS PANEL ([facility]/APD/NLH/CGP) Routine 06/30/2024 2:18 PM EST Vaginal discharge COMPREHENSIVE METABOLIC PANEL Routine 06/30/2024 11:23 AM EST with 18 completed weeks gestation Fatigue, unspecified type HEMOGRAM Routine 06/30/2024 11:23 AM EST with 18 completed weeks gestation Fatigue, unspecified type EKG 12-LEAD STAT 06/30/2024 11:12 AM EST Chest pressure TSH CASCADE Routine 06/02/2024 10:18 AM EST care in first trimester HIV SCREEN, 4TH GENERATION ([facility]/CGP/[facility]D/[facility])PERF ORMABLE Routine 04/15/2024 3:41 PM EDT care, antepartum HEPATITIS C ANTIBODY Routine 04/15/2024 3:41 PM EDT care, antepartum GC/CHLAMYDIA Routine 04/15/2024 3:24 PM EDT care, antepartum from Last 3 Months or Most Recently Relevant to Health Maintenance Results * Vaginitis/osis Panel ([facility]/APD/NLH/CGP) (06/30/2024 2:18 PM EST) Bacterial Vaginosis Negative Negative, Invalid, Equivocal 07/01/2024 2:36 AM [facility] Berenice sp. Group Negative Negative, Invalid, Equivocal 07/01/2024 2:36 AM [facility] Berenice glabrata PCR Negative Negative, Invalid, Equivocal 07/01/2024 2:36 AM [facility] Trichomonas vaginalis PCR Negative Negative, Invalid, Equivocal 07/01/2024 2:36 AM [facility] Swab VAGINAL STRUCTURE / Unknown Non Blood Collection / Unknown 06/30/2024 2:18 PM EST 06/30/2024 2:52 PM EST [facility] - 07/01/2024 2:36 AM EST Results from these nucleic acid amplification assay should be interpreted in conjunction with other available clinical and laboratory data. ??Negative results do not rule out a possible infection. ??Accurate results are dependent on adequate specimen collection. ??Invalid results indicate there was an error generating a result, sample recollection is suggested. ??Bacterial species targeted by the BV assay may comprise part of the normal microbiome for a significant number of women. ??Berenice sp. group target includes C. albicans, C. tropicalis, C. parapsilosis, C. dubliniensis. ??The Aptima CV/TV and BV Assay were tested on the Convr[employer] Instrument. ?? These assays are cleared by the [place] Food & Drug Administration for clinical testing. Mariola Escamilla MD MICROBIOLOGY - [facility] ORDERABLES [facility] [place] [address] * (ABNORMAL) Hemogram (06/30/2024 11:23 AM EST) White Blood Cell 15.60(H) 4.00 - 9.50 x10(3)/mc L 06/30/2024 11:45 AM EST [facility] Red Blood Cell 4.30 4.00 - 5.21 x10(6)/mc L 06/30/2024 11:45 AM [facility] Hemoglobin 12.7 11.7 - 15.5 g/dL 06/30/2024 11:45 AM [facility] Hematocrit 38.7 35.7 - 45.8 % 06/30/2024 11:45 AM [facility] Mean Cell Volume 90.0 82.6 - 94.4 fL 06/30/2024 11:45 AM [facility] Mean Cell Hemoglobin 29.5 27.1 - 32.0 pg 06/30/2024 11:45 AM [facility] Mean Cell Hemoglobin Concentration 32.8 31.7 - 35.0 g/dL 06/30/2024 11:45 AM [facility] Platelet 359(H) 145 - 357 x10(3)/mc L 06/30/2024 11:45 AM [facility] Mean Platelet Volume 9.5 7.6 - 12.9 fL 06/30/2024 11:45 AM [facility] RDW Standard Deviation 41.6 37.0 - 46.0 fL 06/30/2024 11:45 AM [facility] RDW coefficient of variation 12.9 11.5 - 14.1 % 06/30/2024 11:45 AM [facility] NRBC% auto 0.0 % 06/30/2024 11:45 AM [facility] NRBC Absolute <0.01 <0.01 x10(3)/mc L 06/30/2024 11:45 AM [facility] Blood VENOUS BLOOD SPECIMEN / Unknown Venipuncture / Unknown 06/30/2024 11:23 AM EST 06/30/2024 11:29 AM EST Mariola Escamilla MD HEMATOLOGY ORDERABL ES [facility] [place] [address] * (ABNORMAL) Comprehensive metabolic panel Non-fasting (06/30/2024 11:23 AM EST) Glucose 65 65 - 199 mg/dL 06/30/2024 12:14 PM [facility] Comment:Glucose Concentratio n >=200 mg/dL plus symptoms is consistent with Diabetes Mellitus. Blood Urea Nitrogen 6(L) 8 - 18 mg/dL 06/30/2024 12:14 PM [facility] Creatinine 0.71 0.70 - 1.20 mg/dL 06/30/2024 12:14 PM [facility] Sodium 135 135 - 145 mMol/L 06/30/2024 12:14 PM [facility] Potassium 4.1 3.5 - 5.0 mMol/L 06/30/2024 12:14 PM [facility] Chloride 103 98 - 107 mMol/L 06/30/2024 12:14 PM [facility] Carbon Dioxide 22 22 - 31 mMol/L 06/30/2024 12:14 PM [facility] Anion Gap 10 5 - 15 mMol/L 06/30/2024 12:14 PM [facility] Calcium 9.5 8.5 - 10.5 mg/dL 06/30/2024 12:14 PM [facility] Protein, Total 7.5 6.1 - 8.0 g/dL 06/30/2024 12:14 PM [facility] Albumin 3.9 3.2 - 5.2 g/dL 06/30/2024 12:14 PM [facility] Aspartate Aminotransferase 16 <=30 unit/L 06/30/2024 12:14 PM [facility] Alanine Aminotransferase 9 0 - 30 unit/L 06/30/2024 12:14 PM [facility] Alkaline Phosphatase 51 35 - 105 unit/L 06/30/2024 12:14 PM [facility] Bilirubin, Total 0.2 <=1.3 mg/dL 06/30/2024 12:14 PM [facility] Est Glomerular Filtration Rate - Female 125 mL/min/1. 73 m?? 06/30/2024 12:14 PM [facility] Comment: This patient's estimated GFR was calculated using the 2020 CKD-EPI equation. The estimated GFR can vary from the measured GFR by up to 30% in the absence of rapidly changing kidney function. Assessment of the estimated GFR is not appropriate when creatinine concentrations are rapidly changing. For clinical situations in which a more precise estimate of GFR is necessary, consider alternative methods of GFR estimation such as a 24-hour urine creatinine clearance. Assignment of CKD stage 1 - 5 for patients with an eGFR near the transition point between stages may be based on clinical assessment of muscle mass and symptoms in addition to eGFR. Link: eGFR Calculator [employer] Fasting Status No 06/30/2024 12:14 PM EST [facility] Blood VENOUS BLOOD SPECIMEN / Unknown Venipuncture / Unknown 06/30/2024 11:23 AM EST 06/30/2024 11:29 AM EST Mariola Escamilla MD CHEMISTRY ORDERABLE S Performing Organization Address [facility] Co de Phone Number [facility] [place] [phone] * EKG 12 Lead (06/30/2024 11:12 AM EST) Ventricular rate 94 BPM MUSE SYSTEM Atrial Rate 94 BPM MUSE SYSTEM P-R Interval 114 ms MUSE SYSTEM QRS Duration 70 ms MUSE SYSTEM Q-T Interval 328 ms MUSE SYSTEM QTC Calculated (Bezet) 410 ms MUSE SYSTEM Calculated P [place] 56 degrees MUSE SYSTEM Calculated R [place] 18 degrees MUSE SYSTEM Calculated T [place] 33 degrees MUSE SYSTEM INTERPRETATION Normal sinus rhythm with sinus arrhythmia Normal ECG When compared with ECG of 02-APR-2005 09:35, PREVIOUS ECG IS PRESENT Confirmed by MD EDMOND, GAEL ([id number]) on 06/30/2024 11:32:01 PM MUSE SYSTEM 06/30/2024 11:1 2 AM EST 06/30/2024 11:32 PM EST Mariola Escamilla MD ECG ORDERABLES Performing Organization Address [facility] Co de Phone Number MUSE SYSTEM * [facility] [place] (06/02/2024 10:18 AM EST) Thyroid Stimulating Hormone 3.10 0.27 - 4.20 mcIU/mL 06/02/2024 11:04 AM EST [facility] Comment: Reference Interval (mcIU/mL): ?? Females: ? First Trimester: 0.23-3.88 ? Second Trimester: 0.22-3.90 ? Third Trimester: 0.44-4.66 Blood VENOUS BLOOD SPECIMEN / Unknown Venipuncture / Unknown 06/02/2024 10:18 AM EST 06/02/2024 10:25 AM EST Myriam Mcgraw APRN CHEMISTRY ORDE RABLES Performing Organization Address City/[facility]/ZIP Co de Phone Number [facility] [place] [address] * Hepatitis C Antibody (04/15/2024 3:41 PM EDT) Hepatitis C Antibody Negative Negative 04/15/2024 4:44 PM EDT [facility] Blood VENOUS BLOOD SPECIMEN / Unknown Venipuncture / Unknown 04/15/2024 3:41 PM EDT 04/15/2024 3:42 PM EDT Dara Gonzalez MD CHEMISTRY ORDERABLES Performing Organization Address City/[facility]/ZIP Co de Phone Number [facility] [place] [address] * HIV Screen, 4th Generation (MC/CGP/APD/NLH) (04/15/2024 3:41 PM EDT) HIV Ab/Ag Screen Negative Negative 04/15/2024 4:44 PM EDT [facility] Comment:Low Risk of HIV Infe ction. Blood VENOUS BLOOD SPECIMEN / Unknown Venipuncture / Unknown 04/15/2024 3:41 PM EDT 04/15/2024 3:42 PM EDT Narrative [facility] - 04/15/2024 4:44 PM EDT This 4th Generation HIV test screens for the presence of the HIV-1 p24 antigen as well as antibodies reactive against HIV-1 and HIV-2. A negative screen does not rule out an acute HIV infection. If acute HIV infection is suspected ??testing should be repeated in 2 - 3 weeks or HIV nucleic acid testing performed. Dara Gonzalez MD CHEMISTRY ORDERABLES [facility] [place] [address] * GC/Chlamydia (04/15/2024 3:24 PM EDT) Gonorrhoeae Gene Amp Negative 04/15/2024 11:58 PM EDT [facility] Chlamydia Gene Amp Negative 04/15/2024 11:58 PM EDT [facility] Swab SPECIMEN FROM CERVIX OR VAGINA / Unknown Non Blood Collection / Unknown 04/15/2024 3:24 PM EDT 04/15/2024 4:12 PM EDT Dara Gonzalez MD MICROBIOLOGY - GENER AL ORDERABLES Performing Organization Address City/[facility]/ZIP Co de Phone Number [facility] [place] [address] from Last 3 Months or Most Recently Relevant to Health Maintenance Care Teams Hvac Installer Relationship Specialty Start Date End Date Edilma Cornejo MD [facility] [place] [address] PCP - General 12/05/22
--- OUTSIDE RECORDS SUMMARY | 2024-07-29 00:20 | XMS_ITS | Encounter Summary ---
Author Organization [facility] Chantal reichtam[place] [address] Care Team Providers Care Aerospace Engineer Name Role Phone Edilma Cornejo MD Primary Care Provider [phone] Encounter Details Date Type Department Care Team (Latest Contact Info) Description 07/12/2024 Travel Social History Tobacco Use Types Packs/Day [...] from your doctor or pharmacy? Never 04/15/2024 [facility] Utilities Answer Date Recorded In the past 12 months has e [employer] gas, oil, or water [employer] threatened to shut off services in your [...] any time in the past 12 m [facility], were you homeless or living in a retirement (including now)? No 04/15/2024 IPV Inpatient Questions [...] Info) Description 08/08/2024 9:00 AM EST Appointment [address] [phone] Umu Saucedo, RN 08/15/2024 10:45 AM EST TH Visit (TeleHealth) Obstetrics [place] [address] Dara Kelley MD [facility] OBSTETRICS [place] [address] 11/25/2024 Hospital Encounter Birthing [place] [address] Dara Gonzalez MD [facility] OBSTETRICS [place] [address] 07/12/2025 1:40 PM EST Office Visit Ophthalmology at [place] [address] Bina Agrawal, JONELLE [facility] [place] [address] documented as of this encounter Visit Diagnoses Not on filedocumented in this encounter Care Teams Aerospace Engineer Relationship Specialty Start Date End Date Edilma Cornejo MD [facility] [place] [address] PCP - General 12/05/22 documented as of this encounter
--- OUTSIDE RECORDS SUMMARY | 2024-07-29 00:20 | XMS_ITS | Encounter Summary ---
Author Organization [facility] Address [facility] [place] [address] Care Team Providers Care Fresh Work Wrapper Layer Name Role Phone Edilma Cornejo MD Primary Care Provider [phone] Reason for Visit * Reason Comments TeleHealth * Consultation (Routine) - Closed Specialty Diagnoses / Procedures Referred By Contac t Referred To Contact Obstetrics and Gynecology Diagnoses Premature MFM Consult Jasmina Harvey APRN [facility] OBSTETRICS [place] [address] [facility] [employer] [facility] [address] [place] [address] Referral ID Status Reason Start Date Expiration Date V isits Requested Visits Authorized [id number] Closed Consult, Test & Treat 07/06/2024 07/06/2025 1 1 Encounter Details Date Type Department Care Team (Late st Contact Info) Description 07/18/2024 11:15 AM EST TH Visit (TeleHealth) Obstetrics [place] [address] Rosaline Jacinto MD [facility] OBSTETRICS [place] [address] Premature Social History Tobacco Use Types Packs/Day Years [...] from your doctor or pharmacy? Never 04/15/2024 [facility] Utilities Answer Date Recorded In the past 12 months has th e [employer], oil, or water [employer] threatened to shut off services in your [...] any time in the past 12 m [facility], were you homeless or living in a residential (including now)? No 04/15/2024 IPV Inpatient Questions [...] as of this encounter Progress Notes * Faby Quach CCMA - 07/18/2024 11:15 AM EST ____ Patient not reached __x__Patient reached and the following information was reviewed/obtained per protocol. _x__Confirmed patient name and date of _x__Confirmed tele med appt (Virtual visit) is downloaded and functioning ___Confirmed location of patient- TeleVisit is taking place in [place]_ [place]__[place]__ [place]__ If not on [facility], working on signing up for my Confirmed has completed any pre-visit questionnaires If has not received required previsit questionnaires, send via [facility] _x__Reviewed medications, allergies, pharmacy, pain/depression, education _x__Documented height/weight/LMP Other information or concerns: [phone] * Rosaline Jacinto MD - 07/18/2024 11:15 AM EST Patient did not connect for telehealth visit and did not answer phone call. Message left to log into telehealth or she can reschedule appoinment. documented in this encounter Plan of Treatment Upcoming Encounters Date Type Department Care Team (Late st Contact Info) Description 08/08/2024 9:00 AM EST Appointment [address] [address] Umu Saucedo RN 08/15/2024 10:45 AM EST TH Visit (TeleHealth) Obstetrics and Gynecology at [address] Dara Kelley MD [facility] OBSTETR[place] [address] 11/25/2024 [place] [address] Dara Gonzalez MD [facility] OBST[place] [address] 07/12/2025 1:40 PM EST Office Visit Ophthalmology at [address] Bina Agrawal OD [facility] [address] documented as of this encounter Visit Diagnoses Diagnosis Premature Other infants, unspecified (weight) documented in this encounter Care Teams Fresh Work Wrapper Layer Relationship Specialty Start Date End Date Edilma Cornejo MD [facility] [place] [address] PCP - General 12/05/22 documented as of this encounter
--- OUTSIDE RECORDS SUMMARY | 2024-07-29 00:21 | XMS_ITS | Encounter Summary ---
Author Organization [facility] Chantal [place] [address] Care Team Providers Care Investor Name Role Phone Edilma Cornejo MD Primary Care Provider [phone] Encounter Details Date Type Department Care Team (Latest Contact Info) Description 05/13/2024 Travel Social History Tobacco Use Types Packs/Day [...] from your doctor or pharmacy? Never 04/15/2024 [facility] Utilities Answer Date Recorded In the past 12 months has e [employer] gas, oil, or water [employer] threatened to shut off services in your [...] any time in the past 12 m [facility], were you homeless or living in a mcc (including now)? No 04/15/2024 IPV Inpatient Questions [...] Info) Description 08/08/2024 9:00 AM EST Appointment [address] [phone] Umu Saucedo, RN 08/15/2024 10:45 AM EST TH Visit (TeleHealth) Obstetrics [place] [address] Dara Kelley MD [facility] OBSTETRICS [place] [address] 11/25/2024 Hospital Encounter Birthing [place] [address] Dara Gonzalez MD [facility] OBSTETRICS [place] [address] 07/12/2025 1:40 PM EST Office Visit Ophthalmology at [place] [address] Bina Agrawal, JONELLE [facility] [place] [address] documented as of this encounter Visit Diagnoses Not on filedocumented in this encounter Care Teams Investor Relationship Specialty Start Date End Date Edilma Cornejo MD [facility] [place] [address] PCP - General 12/05/22 documented as of this encounter
--- OUTSIDE RECORDS SUMMARY | 2024-07-29 00:21 | XMS_ITS | Encounter Summary ---
Author Organization [facility] Chantal reichtam[place] [address] Care Team Providers Care Inspector Packager Name Role Phone Edilma Cornejo MD Primary Care Provider [phone] Encounter Details Date Type Department Care Team (Latest Contact Info) Description 05/02/2024 Travel Social History Tobacco Use Types Packs/Day [...] from your doctor or pharmacy? Never 04/15/2024 [facility] Utilities Answer Date Recorded In the past 12 months has e [employer] gas, oil, or water [employer] threatened to shut off services in your [...] any time in the past 12 m [facility], were you homeless or living in a nursing home (including now)? No 04/15/2024 IPV Inpatient Questions [...] Info) Description 08/08/2024 9:00 AM EST Appointment [address] [phone] Umu Saucedo, RN 08/15/2024 10:45 AM EST TH Visit (TeleHealth) Obstetrics [place] [address] Dara Kelley MD [facility] OBSTETRICS [place] [address] 11/25/2024 Hospital Encounter Birthing [place] [address] Dara Gonzalez MD [facility] OBSTETRICS [place] [address] 07/12/2025 1:40 PM EST Office Visit Ophthalmology at [place] [address] Bina Agrawal, JONELLE [facility] [place] [address] documented as of this encounter Visit Diagnoses Not on filedocumented in this encounter Care Teams Inspector Packager Relationship Specialty Start Date End Date Edilma Cornejo MD [facility] [place] [address] PCP - General 12/05/22 documented as of this encounter
--- OUTSIDE RECORDS SUMMARY | 2024-07-29 00:21 | XMS_ITS | Encounter Summary ---
Author Organization [facility] Chantal reichtam[place] [address] Care Team Providers Care Refractive Surgeon Name Role Phone Edilma Cornejo MD Primary Care Provider [phone] Encounter Details Date Type Department Care Team (Latest Contact Info) Description 06/02/2024 Travel Social History Tobacco Use Types Packs/Day [...] from your doctor or pharmacy? Never 04/15/2024 [facility] Utilities Answer Date Recorded In the past 12 months has e [employer] gas, oil, or water [employer] threatened to shut off services in your [...] were you homeless or living in a long-term (including now)? No 04/15/2024 IPV Inpatient Questions [...] Info) Description 08/08/2024 9:00 AM EST Appointment [address] [phone] Umu Saucedo, RN 08/15/2024 10:45 AM EST TH Visit (TeleHealth) Obstetrics [place] [address] Dara Kelley MD [facility] OBSTETRICS [place] [address] 11/25/2024 Hospital Encounter Birthing [place] [address] Dara Gonzalez MD [facility] OBSTETRICS [place] [address] 07/12/2025 1:40 PM EST Office Visit Ophthalmology at [place] [address] Bina Agrawal, JONELLE [facility] [place] [address] documented as of this encounter Visit Diagnoses Not on filedocumented in this encounter Care Teams Refractive Surgeon Relationship Specialty Start Date End Date Edilma Cornejo MD [facility] [place] [address] PCP - General 12/05/22 documented as of this encounter
--- OUTSIDE RECORDS SUMMARY | 2024-07-29 00:21 | XMS_ITS | Encounter Summary ---
Author Organization [facility] Chantal [place] [address] Care Team Providers Care Varsity Baseball Coach Name Role Phone Edilma Cornejo MD Primary Care Provider [phone] Encounter Details Date Type Department Care Team (Latest Contact Info) Description 06/30/2024 Travel Social History Tobacco Use Types Packs/Day [...] from your doctor or pharmacy? Never 04/15/2024 [facility] Utilities Answer Date Recorded In the past 12 months has e [employer] gas, oil, or water [employer] threatened to shut off services in your [...] any time in the past 12 m [facility], were you homeless or living in a senior care (including now)? No 04/15/2024 IPV Inpatient Questions [...] Info) Description 08/08/2024 9:00 AM EST Appointment [address] [phone] Umu Saucedo, RN 08/15/2024 10:45 AM EST TH Visit (TeleHealth) Obstetrics [place] [address] Dara Kelley MD [facility] [place] [address] 11/25/2024 Hospital Encounter Birthing [place] [address] Dara Gonzalez MD [facility] [place] [address] 07/12/2025 1:40 PM EST Office Visit Ophthalmology at [place] [address] Bina Agrawal, JONELLE [facility] [place] [address] documented as of this encounter Visit Diagnoses Not on filedocumented in this encounter Care Teams Varsity Baseball Coach Relationship Specialty Start Date End Date Edilma Cornejo MD [facility] [place] [address] PCP - General 12/05/22 documented as of this encounter
--- OUTSIDE RECORDS SUMMARY | 2024-07-29 00:21 | XMS_ITS | Encounter Summary ---
Author Organization [facility] Chantal [place] [address] Care Team Providers Care Environmental Services Technician Name Role Phone Edilma Cornejo MD Primary Care Provider Encounter Details Date Type Department Care Team (Latest Contact Info) Description 05/19/2024 Travel Social History Tobacco Use Types Packs/Day [...] from your doctor or pharmacy? Never 04/15/2024 [facility] Utilities Answer Date Recorded In the past 12 months has e [employer] gas, oil, or water [employer] threatened to shut off services in your [...] any time in the past 12 m [facility], were you homeless or living in a care home (including now)? No 04/15/2024 IPV Inpatient [...] Info) Description 08/08/2024 9:00 AM EST Appointment [address] [phone] Umu Saucedo, RN 08/15/2024 10:45 AM EST TH Visit (TeleHealth) Obstetrics [place] [address] Dara Kelley MD [facility] OBSTETRICS [place] [address] 11/25/2024 Hospital Encounter Birthing [place] [address] Dara Gonzalez MD [facility] OBSTETRICS [place] [address] 07/12/2025 1:40 PM EST Office Visit Ophthalmology at [place] [address] Bina Agrawal, JONELLE [facility] [place] [address] documented as of this encounter Visit Diagnoses Not on filedocumented in this encounter Care Teams Environmental Services Technician Relationship Specialty Start Date End Date Edilma Cornejo MD [facility] [place] [address] PCP - General 12/05/22 documented as of this encounter
--- OUTSIDE RECORDS SUMMARY | 2024-07-29 00:21 | XMS_ITS | Encounter Summary ---
Author Organization [facility] [place] [address] Care Team Providers Care Scrap Preparer Name Role Phone Edilma Cornejo MD Primary Care Provider [phone] Encounter Details Date Type Department Care Team (Late st Contact Info) Description 07/04/2024 Telephone Obstetrics [place] [address] Halle Marquez, RN Social History Tobacco Use Types Packs/Day Years [...] any time in the past 12 m [facility], were you homeless or living in a fci (including now)? No 04/15/2024 [facility] IPV Inpatient [...] AM EST documented as of this encounter Miscellaneous Notes * Telephone Encounter - Halle Marquez RN - 07/04/2024 1:34 PM EST Returning TC to Ely Mahmood 19 y.o. 19w3d following voicemail left on nurse line. Ely states that yesterday she began to have severe lower abdominal cramping that almost brings herto tears. Around 1030am last night, she began to have vomiting as well. She last vomited around 530am this morning, and she has bene able to keep down small amounts of water and powerade today. She is urinating as usual. She denies vaginal bleeding, LOF, or fevers. She endorses worsening shortness of breath today, even just walking across her house to the bathroom. She also endorses intermittent chest pain and tightness. Given SOB, chest pain/tightness, and severe abdominal cramping, recommended evaluation in the Emergency Department. Ely agrees to plan and will go to local Emergency Department in [facility]. This RN will plan to call Ely tomorrow to check in on condition and determine if OB follow up visit isneeded. documented in this encounter Plan of Treatment Upcoming Encounters Date Type Department Care Team (Late st Contact Info) Description 08/08/2024 9:00 AM EST Appointment [facility] [address] [address] Umu Saucedo RN 08/15/2024 10:45 AM EST TH Visit (TeleHealth) Obstetrics [place] [address] Dara Kelley MD [facility] OBSTETRICS [place] [address] 11/25/2024 Hospital [facility] [address] Dara Gonzalez MD [facility] OBSTETRICS [place] [address] 07/12/2025 1:40 PM EST Office Visit Ophthalmology at [address] Bina Agrawal, JONELLE [facility] [place] [address] documented as of this encounter Visit Diagnoses Not on filedocumented in this encounter Care Teams Scrap Preparer Relationship Specialty Start Date End Date Edilma Cornejo MD [facility] [place] [address] PCP - General 12/05/22 documented as of this encounter
--- OUTSIDE RECORDS SUMMARY | 2024-07-29 00:21 | XMS_ITS | Encounter Summary ---
Author Organization [facility] Address [facility] [place] [address] Care Team Providers Care Internet Manager Name Role Phone Edilma Cornejo MD Primary Care Provider [phone] Reason for Referral * [facility] Maternal Child Health (Routine) - Pending Review Specialty Diagnoses / Procedures Referred By Radha arroyo Referred To Contact Diagnoses care, antepartum [address] [place] [address] [facility] [address] [place] [phone] Referral ID Status Reason Start Date Expiration Date Visits Requested Visits Authorized [id number] Pending Review Consult, Test & Treat 05/11/[phone] Encounter Details Date Type Department Care Team (Late st Contact Info) Description 05/11/2024 Transcribe Orders [facility] Incoming Referrals [phone] [place] [address] care, antepartum Social History Tobacco Use Types Packs/Day Years [...] from your doctor or pharmacy? Never 04/15/2024 [facility] Utilities Answer Date Recorded In the past 12 months has th e [employer], [employer], oil, or water [employer] threatened to shut off services in your [...] any time in the past 12 m [facility], were you homeless or living in a detention (including now)? No 04/15/2024 IPV Inpatient Questions [...] Info) Description 08/08/2024 9:00 AM EST Appointment [address] [phone] Umu Saucedo, RN 08/15/2024 10:45 AM EST TH Visit (TeleHealth) Obstetrics [place] [address] Dara Kelley MD [facility] OBST[place] [address] 11/25/2024 Hospital En[facility] [place] [address] Dara Gonzalez MD [facility] OBST[place] [address] 07/12/2025 1:40 PM EST Office [place] [address] Bina Agrawal, JONELLE [facility] [place] [address] Scheduled Referrals Name Type Priority Associated Diagnoses Orde r Schedule Amb Referral to [facility] Maternal Child Health Outpatient Referral Routine care, antepartum Ordered: 05/11/2024 documented as of this encounter Visit Diagnoses Diagnosis care, antepartum documented in this encounter Care Teams Internet Manager Relationship Specialty Start Date End Date Edilma Cornejo MD [facility] [address] PCP - General 12/05/22 documented as of this encounter
--- OUTSIDE RECORDS SUMMARY | 2024-07-29 00:21 | XMS_ITS | Encounter Summary ---
Author Organization [facility] Address [facility] [place] [address] Care Team Providers Care Elevator Technician Name Role Phone Edilma Cornejo MD Primary Care Provider [phone] Reason for Visit * Reason Comments Eye Exam Encounter Details Date Type Department Care Team (Late st Contact Info) Description 07/06/2024 3:00 PM EST [place] [address] Bina Agrawal OD [facility] [place] [address] Emmetropia Social History Tobacco Use Types Packs/Day Years [...] from your doctor or pharmacy? Never 04/15/2024 [facility] Utilities Answer Date Recorded In the [...] any time in the past 12 m [facility], were you homeless or living in [...] as of this encounter Progress Notes * Bina Agrawal, OD - 07/06/2024 3:00 PM EST Encounter Diagnosis Name Primary? Emmetropia Ely Mahmood is a 19 y.o. with the following ophthalmic problems: Assessment and Plan: Un-Dilated ocular health unremarkable. Dilation deferred due to . - Monitor at [facility] - Pt ed re si/sx/risks of RD and to RTC STAT w/ increase in floaters, flashes, curtains/shades. 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 -Upon Return [facility] in 1 year, sooner with changes in sx/vision. documented in this encounter Plan of Treatment Upcoming Encounters Date Type Department Care Team (Late st Contact Info) Description 08/08/2024 9:00 AM EST Appointment [address] [phone] Umu Saucedo, RN 08/15/2024 10:45 AM EST TH Visit (TeleHealth) [place]etrics [place] [phone] Dara Kelley MD [facility] OBSTETRICS [place] [address] 11/25/2024 Hospital Encounter Bir[facility] [place] [phone] Dara Gonzalez MD [facility] OBSTETRICS [place] [address] 07/12/2025 1:40 PM EST Office [place] [address] Bina Agrawal, OD [facility] [place] [address] documented as of this encounter Visit Diagnoses Diagnosis Emmetropia Screening for other eye conditions documented in this encounter Care Teams Elevator Technician Relationship Specialty Start Date End Date Edilma Cornejo MD [facility] [place] [address] PCP - General 12/05/22 documented as of this encounter
--- OUTSIDE RECORDS SUMMARY | 2024-07-29 00:21 | XMS_ITS | Encounter Summary ---
Author Organization [facility] Address [facility] [place] [address] Care Team Providers Care Commodity Specialist Name Role Phone Edilma Cornejo MD Primary Care Provider [phone] Encounter Details Date Type Department Care Team (Late st Contact Info) Description 04/28/2024 11:00 AM EST Notes Only Obstetrics [place] [phone] Norah Lakhani, DIRECTOR NEW PRODUCT Social History Tobacco Use Types Packs/Day Years Used Date Smoking Tobacco: Never Passive Smoke Exposure: Yes Smokeless Tobacco: Never Comments:Patient vapes on oc casion (rechargeable cartridge) Alcohol Use Standard Drinks/Week Comments No 0 (1 standard drink = 0.6 oz pur e alcohol) B1300 Health Literacy Answer Date Recor ded How often do you need to hav e someone help you when you read instructions, pamphlets, or other written material from your doctor or pharmacy? Never 04/15/2024 [facility] Utilities Answer Date Recorded In the [...] any time in the past 12 m [facility], were you homeless or living in a ch[facility] (including now)? No 04/15/2024 [facility] Inpatient Questions [...] as of this encounter Progress Notes * Norah Lakhani, DIRECTOR NEW PRODUCT - 04/28/2024 11:00 AM EST Outpatient Therapy Visit Note Ely Mahmood gave permission for and was seen for today's appointment. Time Spent: 60 minutes Additional Attendee(s): (identify by relationship to pt.) Franky Sanchez MSW Student. Patient provides verbal consent for DIRECTOR NEW PRODUCT student to join visit. CHIEF COMPLAINT/DIAGNOSIS: (symptoms, problem, or other factors providing rationale for today's encounter) Anxiety SUBJECTIVE: Ely is a 19-year-old patient who is 9 weeks and 6 days . Ely shares that her partner brought her to the appointment because he's going to the pediatric department for his 8-year-old daughter. Ely shares that he is very excited for the baby and they want to create a stable family together. Ely shares that she is also excited about being a mom and has always envisioned this for herself.Ely shares that she had a miscarriage when she was 15 and has fear around having another miscarriage and having a pre-mature . She had to process that loss on her own because while her grandparents were there for her, they did not talk with her about what happened. Ely reports that her daily anxiety mainly stems from things that are out of her control (finding housing, what's going to happen with FOB-Roland's involvement and setting boundaries with family.) SW inquired about how she wants Roland (father of the baby) to fit into this picture and Ely was unsure. Ely shares that Roland is supportive and goes to appointments with her but she is unsure if she can trust him to follow through with being in baby's life. When SW asked Ely if she had full control over the situation, what would Roland's involvement look like, Ely shares that part of her does notwant him involved due to mental health struggles and fear of not following through. Ely reports that this because she doesn't want her baby to feel like they are not enough, like I did. SW encouraged Ely to take some time to think about expectations for Roland and what exactly that looks like. Ely was receptive to this. Ely shares that this mistrust in parenting started when she was a child.She reports that her dadhas been [place] and [place] [facility] and has some unmet mental health struggles. She shares that her mom is not really involved in her life and her grandparents have had custody of her since she was born. Ely shares that she had a good relationship with her grandparents up until age 15, when they started putting more pressure on her and would constantly put her down. Ely also shares that she was in a long-term relationship that started when she was 11 years-old and that her partner by suicide 3 months after they broke up. Ely shares her fear of people letting her down stems from her traumatic history. TREATMENT MODALITY: Supportive counseling OBJECTIVE: Develop coping skills to help with anxiety Navigating co-parenting with father of the baby Processing grief and trauma that she has experienced Building confidence in enforcing boundaries PERTINENT MENTAL STATUS EXAM: Behavior: Calm, cooperative Mood: Normal Affect: appropriate, teary Thought Process: Linear, goal directed Associations: Intact Orientation: X4 Attention/Concentration: WNL Insight: WNL Judgment: WNL Safety Risk assessment: No S/I or H/I indicated ASSESSMENT: (include progress toward goals since last visit and patient's capacity to participate and benefit from continued treatment). Ely is a 19-year-old patient who is 9 weeks and 6 days and presents to clinic with heightened anxiety. Ely acknowledges today that her whole life she has processed grief on her own and sheis able to see the connection between her parents letting her down in childhood and her fear now ofpeople not following through. Ely needs time to think about what her expectations for Roland, the fat her of her baby, are through and post- and what the future will look like. In the context of unprocessed grief and loss from a miscarriage and having someone very close to her by suicide, Ely would like a space to actually talk through those experiences and process the pain shefeels she has been carrying for a while. PLAN: Revised goals or interventions: Currently Ely's goal for therapy is to process past losses and to learn coping skills for anxiety in the context of this and preparing for the period. -Send information to Ely regarding what people usually budget when having babies -Send prompts for thinking through co-parenting [x] No change in estimated length of treatment. Safety Risk Management: (specify plan to manage self harm/suicide/homicide risk findings if present): No indication fo SI/HI. Below discussed with patient as resources available: Call 911 in an Emergency. Call or text 268 or chat [employer] For regional Mental Health Crises Services: [facility] Crisis Line text or call Visit [email or web address] for further information [place] Call your local [facility] crisis line at: [place]: Counseling [facility] [phone] [place]: [facility] [phone] [place]: [facility] [phone] [place]: [facility] [phone] [place]: [facility] [phone] [place]: [facility] Counseling and Support [phone] [place]: [facility] Health [phone] on weekdays 8AM-4:30PM and [phone] on nights and weekends [place]: [facility] [place]: [facility] [phone] [place]: [facility]note 2] Services [phone] [place]: [facility] Services, [place]: [facility] [place]: [facility] Next Appt: May 19 Assigned Homework: Mindfulness tools, coping skills Patient Instruction/Education Provided: Verbal Patient understands the plan? [x} Yes * Jazzy Estrada CL[employer]GL[employer] ASSEMBLER - 04/28/2024 11:00 AM EST I have reviewed patient chart and discussed this case with JUDY Burgess. I am in agreement with the plan of care as documented. LEWIS Reis Clinical Scales Inspector Department of Psychiatry [facility] [phone] documented in this encounter Plan of Treatment Upcoming Encounters Date Type Department Care Team (Late st Contact Info) Description 08/08/2024 9:00 AM EST Appointment [address] [address] Umu Saucedo RN 08/15/2024 10:45 AM EST TH Visit (TeleHealth) Obstetrics [place] [address] Dara Kelley MD [facility] OBSTETRICS [place] [address] 11/25/2024 Hospital Encounter Birthing [place] [phone] Dara Gonzalez MD [facility] OBSTETRICS [place] [address] 07/12/2025 1:40 PM EST Office Visit Ophthalmology at [place] [address] Bina Agrawal OD [facility] [address] documented as of this encounter Visit Diagnoses Diagnosis Anxiety Anxiety state, unspecified documented in this encounter Care Teams Commodity Specialist Relationship Specialty Start Date End Date Edilma Cornejo MD [facility] [address] PCP - General 12/05/22 documented as of this encounter
--- OUTSIDE RECORDS SUMMARY | 2024-07-29 00:21 | XMS_ITS | Encounter Summary ---
Author Organization [facility] [place] [address] Care Team Providers Care Brush Sander Name Role Phone Edilma Cornejo MD Primary Care Provider [phone] Encounter Details Date Type Department Care Team (Late st Contact Info) Description 06/02/2024 Telephone Obstetrics [place] [phone] Ling Sewell, RN Social History Tobacco Use Types Packs/Day [...] from your doctor or pharmacy? Never 04/15/2024 [facility] Utilities Answer Date Recorded In the past 12 months has th e electric, gas, oil, or water company [...] any time in the past 12 m [facility], were you homeless or living in [...] encounter Miscellaneous Notes * Telephone Encounter - Ling Sewell RN - 06/02/2024 12:02 PM EST Wondering if she sent in right meds, pharmacy said sleep aid. documented in this encounter Plan of Treatment Upcoming Encounters Date Type Department Care Team (Late st Contact Info) Description 08/08/2024 9:00 AM EST Appointment [address] [phone] Umu Saucedo RN 08/15/2024 10:45 AM EST TH Visit (TeleHealth) Obstetrics and Gynecology at [place] [phone] Dara Kelley MD [facility] OBSTETRICS AND [place] [address] 11/25/2024 Hospital Encounter Birthing [place] [phone] Dara Gonzalez MD [facility] OBSTETRICS AND [place] [address] 07/12/2025 1:40 PM EST Office Visit Ophthalmology at [place] [phone] Bina Agrawal, JONELLE [facility] [place] [address] documented as of this encounter Visit Diagnoses Not on filedocumented in this encounter Care Teams Brush Sander Relationship Specialty Start Date End Date Edilma Cornejo MD [facility] [place] [address] PCP - General 12/05/22 documented as of this encounter
--- OUTSIDE RECORDS SUMMARY | 2024-07-29 00:21 | XMS_ITS | Encounter Summary ---
Author Organization [facility] Address [facility] [place] [address] Care Team Providers Care Repair Armature Winder Name Role Phone Edilma Cornejo MD Primary Care Provider [phone] Reason for Visit * Reason Comments Fever Nasal Congestion Shortness of Breath Encounter Details Date Type Department Care Team (Late st Contact Info) Description 05/25/2024 8:18 PM EST - 05/25/2024 10:48 PM [facility] Emergency [place] [address] [facility] [place] [address] Viral URI Discharge Disposition: Home Social History Tobacco Use Types Packs/Day Years [...] your doctor or pharmacy? Never 04/15/2024 [facility] Utilities Answer Date Recorded In the past 12 months has e [employer], gas, oil, or water company threatened to [...] any time in the past 12 m [facility], were you homeless or living in [...] AM EST documented as of this encounter Last Filed Vital Signs Vital Sign Reading Time Taken Comments Blood Pressure 123/81 05/25/2024 8:15 PM EST Pulse 115 05/25/2024 8:15 PM EST Temperature 37.4 ??C (99.3 ??F) 05/25/2024 8:15 PM ES T Respiratory Rate 20 05/25/2024 8:15 PM EST Oxygen Saturation 100% 05/25/2024 8:15 PM EST Inhaled Oxygen Concentration - - Weight 53.5 kg (118 lb) 05/25/2024 8:15 PM EST Height 149.9 cm (4' 11) 05/25/2024 8:15 PM EST Body Mass Index 23.83 05/25/2024 8:15 PM EST documented in this encounter Discharge Instructions * Discharge Instructions* Yu Cervantes MD - 05/25/2024 9:51 PM EST You were seen in the emergency department today for fever, cough, runny nose, and congestion. You also had 1 episode of vomiting shortly before arriving to the emergency department. Given many of your family members have the flu right now it is likely that you also have the flu. You were given medications to help you feel better, Tylenol and Zofran (an antinausea). After which you were able to tolerate food and drink. We also found that you have a left ear infection. We are sending amoxicillin to your pharmacy. Please take this 3 times a day for 5 days. Recommend symptomatic care at home with rest hydration and Tylenol and ibuprofen as needed. If you your symptoms worsen or if you continue to have symptoms after 4 to 5 days please call your PCP or OB. If your ear pain does not resolve with treatment please be seen by your PCP. If you have any painwith deep breaths please return to the emergency department. * Attachments The following attachments cannot be sent through Care Everywhere. * URI (Upper Respiratory Infection): Viral (Tongan) documented in this encounter Medications at Time of Discharge Medication Sig Dispensed Refills Start Date End Date vitamin with gwlywvip-Yh-Xdvd-FA Tablet Take 1 tablet by mouth daily. albuteroL 90 mcg/actuation HFA Aerosol Inhaler Inhale 2 puffs into the lungs every 4 hours as needed for Wheezing. Use with spacer 1 each 5 05/29/2023 amoxicillin (Amoxil) 500 mg capsule Take 1 capsule by mouth 3 times daily for 5 days. 15 capsule 05/25/2024 05/30/2024 oseltamivir (Tamiflu) 75 mg capsuleIndications:Infl uenza Take 1 capsule by mouth 2 times daily for 5 days. 10 capsule 05/24/2024 05/29/2024 documented as of this encounter ED Notes * Konstantin Rodrigues MD - 05/25/2024 10:05 PM EST ED Attending Brief Note The patient was seen in conjunction with the resident physician. I have independently performed thekey portions of the history and physical exam. I have reviewed the diagnostic studies including labs, imaging studies and EKGs. I have discussed the details of the case with the resident. Brief Summary: 19 y.o. female with currently at 13 weeks gestation whose boyfriend was seen and evaluated for and tested positive for influenza -who is presenting to the emergency department with fever, nasal congestion, bilateral ear pain in the context of multiple prior ear infections. Patient called her OB today when she had nasal congestion, cough and her OB started her on Tamiflu. After taking the Tamiflu she had a single episode of vomiting and presented to the emergency department. She generally is well-appearing, has clear lungs, posterior oropharynx without evidence of abscess however she does havea ruptured TM on the right side with an effusion on the left. Overall patient's presentation is most suggestive of likely viral respiratory illness and in the context of her boyfriend testing positive for influenza it seems reasonable for her to take a course of Tamiflu for that. Given she is having ear pain with right sided ruptured TM concern for ruptured otitis media therefore will cover with a ntibiotics as well. Plan for symptomatic treatment with antipyretics and antiemetics given the patient's single episode of vomiting. Patient does not have a headache and has a normal neurologic exam.Has a benign abdominal exam and no other GI symptoms therefore alternative etiologies such as intra-abdominal, GI, , or neuro of vomiting are clinically unlikely. No vaginal discharge or bleeding. Plan for symptomatic treatment and trial of P.O. tolerance with a plan for outpatient antibiotics. History is obtained from the patient and the patient's boyfriend Did this case involve critical care? No Konstantin Rodrigues MD 05/25/24 2216 * Yu Cervantes MD - 05/25/2024 9:03 PM EST ED Resident Note HPI: Ely Mahmood is a 19 y.o. female who is currently at 13w5d gestation who presents to the Emergency Department with 1 day of fever, cough, headache, and shortness of breath. History obtained from patient. Patient reports that symptoms started this morning, Tmax of 100.8. Has had a dry cough, rhinorrhea,and congestion. She also reports bilateral ear pain. She also has a retro-orbital and right temporal headache associated with photophobia. At its worst it was 7/10 but is now 3/10 without any medication. The last time she took Tylenol was earlier this morning. She reports some chest tightness and he aviness with deep breaths. She has taken her inhaler but has not had any improvement in her shortness of breath. She also reports some ear pain left worse than right. Has had multiple ear infections in the past, especially in the left ear. Her boyfriend, grandma, and sister all have the flu right now. She called her OB this morning who prescribed her Tamiflu and she took the first dose at 5 PM. Afterwards she had 1 episode of nonbloodynonbilious emesis. Her nausea has now resolved. Meds: Flu, vitamin, albuterol as needed ROS as per HPI Vitals: ED Triage Vitals [05/25/242014] BP: 123/81 Heart Rate: (!) 115 Resp: 20 Temp: 37.4 ??C (99.3 ??F) Temp src: Tympanic SpO2: 100 % O2 Device: RA O2 Flow Rate (L/min): n/a Physical Exam Constitutional: General: She is not in acute distress. Appearance: Normal appearance. HENT: Ears: Comments: R TM ruptured Effusion visible behind L TM Mouth/Throat: Mouth: Mucous membranes are moist. Pharynx: No oropharyngeal exudate or posterior oropharyngeal erythema. Comments: Cobblestoning of posterior pharynx Eyes: Extraocular Movements: Extraocular movements intact. Cardiovascular: Rate and Rhythm: Normal rate and regular rhythm. Pulses: Normal pulses. Heart sounds: Normal heart sounds. No murmur heard. No friction rub. No gallop. Pulmonary: Effort: Pulmonary effort is normal. No respiratory distress. Breath sounds: Normal breath sounds. No wheezing, rhonchi or rales. Abdominal: General: Abdomen is flat. Bowel sounds are normal. There is no distension. Palpations: Abdomen is soft. There is no mass. Skin: General: Skin is warm and dry. Capillary Refill: Capillary refill takes less than 2 seconds. Findings: No rash. Neurological: General: No focal deficit present. Mental Status: She is alert. ED Course: No labs, images, or test were run during this counter. Patient was given Tylenol and Zofran and demonstrated adequate ability to take p.o. Assessment and Plan: 19 y.o. female with who is currently at 13w5d gestation here with 1 day of fever, cough, emesis, and multiple sick contacts with influenza at home all consistent with influenza infection. Deferred testing at this time given her history, and the fact that she is already on Tamiflu so would not environmental change analyst. Recommended symptomatic care at home with rest, fluid, and Tylenol. Ear exam consistent with L AOM, we will treat with 5 days of amoxicillin 500 mg 3 times daily. The visit findings, diagnosis, and care plan were discussed with the patient. The diagnosis and care plans discussions were outlined in the discharge instructions. The patient expressed understanding of the details of the visit, the return precautions and that she should return to the ER at any time for worsening symptoms, new symptoms, or other concerns. she agrees with thefollow- up plan. Yu Cervantes MD Resident 05/25/24 4963 Associated attestation - Konstantin Rodrigues MD - 05/25/2024 11:03 PM EST ED ATTENDING ATTESTATION The patient was seen in conjunction with the resident physician. I have independently performed thekey portions of the history and physical exam. I have personally reviewed nursing notes, vital signs, and diagnostic studies including labs, imaging studies and EKGs. I have discussed the details of the case with the resident and agree with the assessment and plan as described in the resident's note, unless stated otherwise in my separate note. Did this case involve critical care? No documented in this encounter Plan of Treatment Upcoming Encounters Date Type Department Care Team (Late st Contact Info) Description 08/08/2024 9:00 AM EST Appointment [address] [address] Umu Saucedo RN 08/15/2024 10:45 AM EST TH Visit (TeleHealth) Obstetrics and Gynecology at [place] [phone] [facility] [address] OBSTETRICS [place] [address] 11/25/2024 Hospital Encounter Birthing [place] [phone] [facility] OB[place] [address] 07/12/2025 1:40 PM EST Office Visit Ophthalmology at [place] [phone] [facility] [place] [address] documented as of this encounter Visit Diagnoses Diagnosis Viral URI Acute upper respiratory infections of unspecified site documented in this encounter Administered Medications Inactive Administered Medications - up to 3 most recent administrations Medication Order MAR Action Action Date Dose Rate Site acetaminophen (Tylenol) tablet 975 mg 975 mg (rounded from 1,000 mg), Oral, ONCE, 1 dose, On Thu05/25/24 at 2150, - Maximum dose of acetaminophen is 4,000 mg from all sources in 24 hours. - Unless otherwise specified, when ordered PRN for pain, acetaminophen should be given first if other PRN pain medications are ordered., STAT Given 05/25/2024 10:06 PM EST 975 mg ondansetron ODT (Zofran-ODT) disintegrating tablet 4 mg 4 mg, Oral, ONCE, 1 dose, On Thu05/25/24 at 2140, STAT Given 05/25/2024 10:06 PM EST 4 mg documented in this encounter Active and Recently Administered Medications Times are shown in EST. Scheduled Medication Order 05/23/2024 05/24/2024 05/25/2024 acetaminophen (Tylenol) tablet 975 mg (COMPLETED) 975 mg (rounded from 1,000 mg), Oral, ONCE, 1 dose, On Thu05/25/24 at 2150, - Maximum dose of acetaminophen is 4,000 mg from all sources in 24 hours. - Unless otherwise specified, when ordered PRN for pain, acetaminophen should be given first if other PRN pain medications are ordered., STAT 2205 (Given - Provid er: Dennis Aburto NRP) ondansetron ODT (Zofran-ODT) disintegrating tablet 4 mg (COMPLETED) 4 mg, Oral, ONCE, 1 dose, On Thu05/25/24 at 2140, STAT 2205 (Given - Provid er: Dennis Aburto NRP) documented in this encounter Care Teams Repair Armature Winder Relationship Specialty Start Date End Date Edilma Cornejo MD [facility] [place] [address] PCP - General 12/05/22 documented as of this encounter
--- OUTSIDE RECORDS SUMMARY | 2024-07-29 00:21 | XMS_ITS | Encounter Summary ---
Author Organization [facility] Address [facility] Chantal [place] [address] Care Team Providers Care Carpet Installer Helper Name Role Phone Edilma Cornejo MD Primary Care Provider [phone] Encounter Details Date Type Department Care Team (Latest Contact Info) Description 04/28/2024 Travel Social History Tobacco Use Types Packs/Day [...] from your doctor or pharmacy? Never 04/15/2024 [facility] Utilities Answer Date Recorded In the past 12 months has e electric, gas, oil, or water [employer] threatened to shut off services in your [...] were you homeless or living in a alf (including now)? No 04/15/2024 IPV Inpatient Questions [...] Info) Description 08/08/2024 9:00 AM EST Appointment [address] [address] Umu Saucedo, RN 08/15/2024 10:45 AM EST TH Visit (TeleHealth) Obstetrics [place] [address] Dara Kelley MD [facility] OBSTETRICS [place] [address] 11/25/2024 Hospital Encounter Birthing [place] [address] Dara Gonzalez MD [facility] OBSTETRICS [place] [address] 07/12/2025 1:40 PM EST Office Visit Ophthalmology at [place] [address] Bina Agrawal OD [facility] [address] documented as of this encounter Visit Diagnoses Not on filedocumented in this encounter Care Teams Carpet Installer Helper Relationship Specialty Start Date End Date Edilma Cornejo MD [facility] [place] [address] PCP - General 12/05/22 documented as of this encounter
--- OUTSIDE RECORDS SUMMARY | 2024-07-29 00:21 | XMS_ITS | Encounter Summary ---
Author Organization [facility] Address [facility] [place] [address] Care Team Providers Care Stamp Collector Name Role Phone Edilma Cornejo MD Primary Care Provider Encounter Details Date Type Department Care Team (Late st Contact Info) Description 04/28/2024 Notes Only Obstetrics [place] [phone] Franky Sanchez Social History Tobacco Use Types Packs/Day Years [...] from your doctor or pharmacy? Never 04/15/2024 [facility] Utilities Answer Date Recorded In the past 12 months has e [employer], gas, oil, or water company threatened to [...] any time in the past 12 m [facility], were you homeless or living in a correction (including now)? No 04/15/2024 IPV Inpatient Questions [...] as of this encounter Progress Notes * Laura Franky Bajwa - 04/28/2024 12:12 PM EST Outpatient Therapy Visit Note Ely Mahmood gave permission for and was seen for today's appointment. Time Spent: 60 minutes Additional Attendee(s): (identify by relationship to pt.) Franky Sanchez, ROD TAPE OPERATOR Student. Patient provides verbal consent for ROD TAPE OPERATOR student to join visit. CHIEF COMPLAINT/DIAGNOSIS: (symptoms, [...] her dadhas been in and out of shelter and has some unmet mental health struggles. [...] 911 in an Emergency. Call or text 096 or chat [employer] For regional Mental Health Crises Services: [facility] Crisis Line text or call Visit www.[email or web address] for further information [place] Call your local [facility] crisis line at: [place]: [facility] [phone] [place]: [facility] [phone] [place]: [facility] [phone] [place]: [facility] [phone] [place]: [facility] [phone] [place] lizbeth [place]: [facility] Counseling and Support [phone] [place]: [facility] [phone] on weekdays 8AM-4:30PM and [phone] on nights and weekends [place]: [facility] [place]: [facility] [phone] [place]: [facility] [phone] [place]: [facility] Services, [place]: [facility] [place]: [facility] Next Appt: May 19 Assigned Homework: Mindfulness tools, coping skills Patient Instruction/Education Provided: Verbal Patient understands the plan? [x} Yes * Norah Lakhani MSW - 04/28/2024 12:12 PM EST I have reviewed patient chart and discussed this case with JUDY Christensen Student. I am in agreement with the plan of care as documented. JUDY Burgess Pronouns: She/Her Department of Obstetrics and Gynecology [facility] documented in this encounter Plan of Treatment Upcoming Encounters Date Type Department Care Team (Late st Contact Info) Description 08/08/2024 9:00 AM EST Appointment [address] [phone] Umu Saucedo, RN 08/15/2024 10:45 AM EST TH Visit (TeleHealth) Obstetrics [place] [address] Dara Kelley MD [facility] OBST[place] [address] 11/25/2024 [place] [address] Dara Gonzalez MD [facility] DR OBSTETR[place] [address] 07/12/2025 1:40 PM EST Office Visit Ophthalmology at [address] Bina Agrawal OD [facility] [place] [address] documented as of this encounter Visit Diagnoses Not on filedocumented in this encounter Care Teams Stamp Collector Relationship Specialty Start Date End Date Edilma Cornejo MD [facility] [place] [address] PCP - General 12/05/22 documented as of this encounter
--- OUTSIDE RECORDS SUMMARY | 2024-07-29 00:21 | XMS_ITS | Encounter Summary ---
Author Organization [facility] Address [facility] Chantal reichtamiko [place] [address] Care Team Providers Care Service Coordinator Elderly Facility Name Role Phone Eidlma Cornejo MD Primary Care Provider [phone] Encounter Details Date Type Department Care Team (Late st Contact Info) Description 06/20/2024 Home Care Visit [facility] [address] [address] Umu Saucedo RN TELEPHONE ENCOUNTER Social History Tobacco Use Types Packs/Day Years [...] from your doctor or pharmacy? Never 04/15/2024 [facility] Utilities Answer Date Recorded In the past [...] any time in the past 12 m [facility], were you homeless or living in a mcfp (including now)? No 04/15/2024 [facility] IPV Inpatient [...] Info) Description 08/08/2024 9:00 AM EST Appointment [address] [phone] Umu Saucedo, RN 08/15/2024 10:45 AM EST TH Visit (TeleHealth) Obstetrics and Gynecology at [place] [phone] Dara Kelley MD [facility] OBSTETRICS [place] [address] 11/25/2024 Hospital Encounter Birthing [place] [address] Dara Gonzalez MD [facility] OBSTETRICS [place] [address] 07/12/2025 1:40 PM EST Office Visit Ophthalmology at [address] Bina Agrawal OD [facility] [place] [address] documented as of this encounter Visit Diagnoses Not on filedocumented in this encounter Care Teams Service Coordinator Elderly Facility Relationship Specialty Start Date End Date Edilma Cornejo MD [facility] [place] [place] [address] PCP - General 12/05/22 documented as of this encounter
--- OUTSIDE RECORDS SUMMARY | 2024-07-29 00:21 | XMS_ITS | Encounter Summary ---
Author Organization [facility] [place] [address] Care Team Providers Care Control Clerk Auditing Name Role Phone Edilma Cornejo MD Primary Care Provider [phone] Encounter Details Date Type Department Care Team (Late st Contact Info) Description 07/05/2024 Telephone Obstetrics [place] [phone] Halle Marquez, RN Social History Tobacco Use [...] your doctor or pharmacy? Never 04/15/2024 [facility] Utilities Answer Date Recorded In [...] any time in the past 12 m [facility], were you homeless or living in a group home (including now)? No 04/15/2024 [facility] IPV Inpatient [...] Telephone Encounter - Halle Marquez RN - 07/05/2024 3:19 PM EST TC to Ely Mahmood 19 y.o. 19w4d to follow up regarding Emergency Department visit yesterday. Ely states that she was seen in the Emergency Department yesterday and they suspected that she just had a GI bug. She is feeling much better today. She has been able to keep down food and liquids, and her abdominal pain is mostly gone. Shortness of breath is improved, and she denies chest pain. She endorses movement and denies vaginal bleeding or loss of fluid. They did check heart rate in the Emergency Department, and she was told that it was in the 150s. She was also told to schedule a follow up visit with OBGYN. Scheduled for follow up visit tomorrow 07/06 at 4pm with Jasmina Harvey APRN. Patient aware to call incase of worsening abdominal pain, vaginal bleeding, or LOF. She was also advised to return to ED incase of return of shortness of breath or chest pain. Patient in agreement with plan and completes teach back. documented in this encounter Plan of Treatment Upcoming Encounters Date Type Department Care Team (Late st Contact Info) Description 08/08/2024 9:00 AM EST Appointment [address] [phone] Umu Saucedo RN 08/15/2024 10:45 AM EST TH Visit (TeleHealth) Obstetrics [place] [address] Dara Kelley MD [facility] OBST[place] [address] 11/25/2024 Hospital [place] [address] Dara Gonzalez MD [facility] OBSTETRICS [place] [address] 07/12/2025 1:40 PM EST Office Visit Ophthalmology at [address] Bina Agrawal, JONELLE [facility] [place] [address] documented as of this encounter Visit Diagnoses Not on filedocumented in this encounter Care Teams Control Clerk Auditing Relationship Specialty Start Date End Date Edilma Cornejo MD [facility] [place] [address] PCP - General 12/05/22 documented as of this encounter
--- OUTSIDE RECORDS SUMMARY | 2024-07-29 00:21 | XMS_ITS | Encounter Summary ---
Author Organization [facility] Chant[place] [address] Care Team Providers Care Political Science Professor Name Role Phone Edilma Cornejo MD Primary Care Provider Encounter Details Date Type Department Care Team (Latest Contact Info) Description 05/04/2024 Travel Social History Tobacco Use Types Packs/Day [...] from your doctor or pharmacy? Never 04/15/2024 [facility] Utilities Answer Date Recorded In the past 12 months has e [employer] gas, oil, or water [employer] threatened to shut off services in your [...] any time in the past [address] [facility], were you homeless or living in [...] Info) Description 08/08/2024 9:00 AM EST Appointment [address] [phone] Umu Saucedo, RN 08/15/2024 10:45 AM EST TH Visit (TeleHealth) Obstetrics [place] [address] Dara Kleley MD [facility] OBSTETRICS [place] [address] 11/25/2024 Hospital Encounter Birthing [place] [address] Dara Gonzalez MD [facility] OBSTETRICS [place] [address] 07/12/2025 1:40 PM EST Office Visit Ophthalmology at [place] [address] Bina Agrawal, JONELLE [facility] [place] [address] documented as of this encounter Visit Diagnoses Not on filedocumented in this encounter Care Teams Political Science Professor Relationship Specialty Start Date End Date Edilma Cornejo MD [facility] [place] [address] PCP - General 12/05/22 documented as of this encounter
--- OUTSIDE RECORDS SUMMARY | 2024-07-29 00:21 | XMS_ITS | Encounter Summary ---
Author Organization [facility] Address [facility] [place] [address] Care Team Providers Care Switch Cleaner Name Role Phone Edilma Cornejo MD Primary Care Provider [phone] Reason for Visit * Reason Comments Routine Visit Encounter Details Date Type Department Care Team (Late st Contact Info) Description 06/02/2024 9:00 AM EST Routine Obstetrics [place] [phone] Satinder Livingston MD [facility] DR OBSTETRICS [place] [address] GA: 14w6d Social History Tobacco Use Types Packs/Day Years [...] from your doctor or pharmacy? Never 04/15/2024 [facility] Utilities Answer Date Recorded In the [...] any time in the past 12 m [facility], were you homeless or [...] Sign Reading Time Taken Comments Blood Pressure 118/62 06/02/2024 9:09 AM EST Pulse - - Temperature - - Respiratory Rate - - Oxygen Saturation - - Inhaled Oxygen Concentration - - Weight 55.3 kg (122 lb) 06/02/2024 9:09 AM EST Height - - Body Mass Index 24.64 05/25/2024 8:15 PM EST documented in this encounter Patient Instructions * Attachments The following attachments cannot be sent through Care Everywhere. * : Exercises (Gambian) documented in this encounter Progress Notes * Satinder Livingston MD - 06/02/2024 9:00 AM EST Subjective: Ely Mahmood is a at 14w6d by LMP (confirmed by CRL) who presents for her routine OB visit. She denies any vaginal bleeding, abdominal pain, or cramping. She has been feeling okay. Ely reports that over the last few days she noticed more frequent cramping. She is not sure if it is generalized or in a specific spot, how long it lasts, or if there is regularity. Denies VB. Normal vaginal discharge. Denies vulvovaginal itching/irritation. Denies urinary concerns like dysuria and urgency. Has also been feeling nauseous. Has been vomiting. Has been able to eat and drink, but feels like she has to delay eating until later in the day. Recent flu and ear infection. Ear exam consistent with L AOM, we will treat with 5 days of amoxicillin 500 mg 3 times daily on 05/25. Was only able to take 3 days BID. Also lost tamiflu on 05/29 Reports no more fevers since prior to her ED visit 05/25 and is noticing improvements in flu symptoms. She has reports feeling more fatigued and decreased motivation. She feels like it is physical fatigue more than an emotional fatigue. She feels like her appointments with Norah have been helpful. She also reports intermittent headaches that resolve with rest and mild low back pain. She reports her sister and mom suffer from severe headaches, but she has not previously. Objective: GA: 14w6d Vitals: BP 118/62 Wt 55.3 kg (122 lb) LMP 02/19/2024 BMI 24.64 kg/m?? POCUS performed. Multiple movements noted. Cardiac activity visualized. No gross evidence of cervical change. FHR: 150-160 Assessment/Plan: 19 y.o. at 14w6d. Maternal and evaluation reassuring. Today we discussed: Influenza and left acute otitis media s/p tamiflu and amoxicillin No recent fevers. Did not complete her course of antibiotics for AOM but no symptoms today. Recommend continue to monitor. Discussed tylenol use in for fever management if has fever in the future Intermittent nausea/vomiting - ordered doxylamine and pyridoxine Low back pain - Provided stretches/exercises on AVS. Tylenol, heat packs, and belly binders can also be helpful. Intermittent headaches - discussed utilizing tylenol, rest, fluids. Reviewed concerning headache signs later in . Fatigue/decreased motivation - will recheck TSH today. Discussed how this could also be or mood related. Mood reportedly stable. Will continue to monitor This has been complicated by: Chlamydia in Neg on 04/15 Plan for repeat STI panel with 32-wk labs Positive TPO antibody titer 02/2022 Most recent TSH 1.87. Previously, TSH 3.13 (06/07/2023), FT4 1.21 (10/07/2022) TPO antibody titer >1000 on 02/14/2022 - Seen by Dr. Ponce who suspects she will likely transition to overt hypothyroidism in the near future given highly elevated TPO antibody titer. Not on thyroid medications pre-. Plan to recheck TSH today Anxiety, depression - stable Unstable housing - working with web content & social media manager Scoliosis, congenital bony malformation Anesthesia consult done US reviewed: CRL consistent with LMP. Will use LMP for dating. Lab results reviewed: WNL Urine culture neg Covid vaccine: 05/07 Genetic screening: Panorama cfDNA: low risk SMA & CF: neg Anatomy US ordered. To be completed at 20wks prior to next visit. Reviewed warning signs and reasons to call. Return for follow up appointment at 20wk GA. Note to patient: The 21st Century Cures Act makes medical notes like this available to patients in the interest of transparency. However, be advised this is a medical document. It is intended as lcko-qb-grtd communication. It is written in medical language and may contain abbreviations or verbiage that are unfamiliar. Patient seen and discussed with LEONARDO Motley attending. Satinder Livingston MD OBGYN PGY1 06/02/2024 * Jenni Calabrese MD - 06/02/2024 9:00 AM EST I have seen the patient and reviewed the resident's above history and I agree with the details as written. I was physically present for the critical/atkins portions of the service and participated in the management of this patient. Jenni Calabrese MD documented in this encounter Plan of Treatment Upcoming Encounters Date Type Department Care Team (Late st Contact Info) Description 08/08/2024 9:00 AM EST Appointment [address] [address] Umu Saucedo RN 08/15/2024 10:45 AM EST TH Visit (TeleHealth) Obstetrics [place] [address] Dara Kelley MD [facility] [place] [address] 11/25/2024 Hospital [place] [phone] Dara Gonzalez MD [facility] [place]ST[place] [address] 07/12/2025 1:40 PM EST Office [place] [address] Bina Agrawal, JONELLE [facility] [address] Scheduled Orders Name Type Priority Associated Diagnoses Orde r Schedule US OB Screening Morphology Imaging Routine Encounter for routine care Expected: 07/08/2024 (Approximate), Expires: 01/07/2025 documented as of this encounter Visit Diagnoses Diagnosis Cramping affecting , antepartum Encounter for routine care care, antepartum documented in this encounter Care Teams Switch Cleaner Relationship Specialty Start Date End Date Edilma Cornejo MD [facility] [place] [address] PCP - General 12/05/22 documented as of this encounter
--- OUTSIDE RECORDS SUMMARY | 2024-07-29 00:21 | XMS_ITS | Encounter Summary ---
Author Organization [facility] Address [facility] [place] [address] Care Team Providers Care Extension Forester Name Role Phone Edilma Cornejo MD Primary Care Provider [phone] Encounter Details Date Type Department Care Team (Late st Contact Info) Description 05/19/2024 2:00 PM EST Notes Only Obstetrics [place] [phone] Norah Lakhani, MEDICAL CLAIMS MANAGER Social History Tobacco Use Types Packs/Day Years [...] In the past 12 months has e dINK, gas, oil, or water company threatened to [...] any time in the past 12 m [facility], were you homeless or living in a chcf (including now)? No 04/15/2024 [facility] IPV Inpatient [...] as of this encounter Progress Notes * LesviaNorah lr, MEDICAL CLAIMS MANAGER - 05/19/2024 2:00 PM EST Outpatient Therapy Visit Note Ely Mahmood gave permission for and was seen for today's appointment. Time Spent: 60 minutes Additional Attendee(s): (identify by relationship to pt.) Franky Sanchez, MEDICAL CLAIMS MANAGER Student. Patient provides verbal consent for MEDICAL CLAIMS MANAGER student to join visit. CHIEF COMPLAINT/DIAGNOSIS: (symptoms, problem, or other factors providing rationale for today's encounter) Anxiety SUBJECTIVE: Ely is a 19-year-old patient who is 12 weeks and 6 days . Ely shares that she just found out that she's having a boy and she is very excited. Pt presents to session today with heightened anxiety around finances and finding housing. Ely shares that she finds herself constantly worrying about things outside of her control. SW discussed how naming the anxiety can be helpful in not letting it control your day. SW gave an example of ways to name the anxiety and pt was somewhat receptive to this idea. SW encouraged Ely to remind herself that she is doing the best she can and also doing everything within the realm of her control. Pt was receptive to hearing this. Ely shares that these past couple of weeks she has been physically exhausted and now she has a cold. SW got verbal consent to message nursing staff to have them call pt to talk through safe medications to take during . SW encouraged pt to bring up this low energy with providers. Pt was receptive to bringing this up at her next appointment. Ely shares that she is, doing ok emotionally. Ely reports that AVTAR (Roland) hasn't really checkedin with her about her appointments. SW asked pt if she has thought more about what her expectationsare for Roland and pt shares that she is not sure. Pt shares that she wants primary custody and feelsready to have a conversation with Roland about this. Pt shares that she is concerned with his mental health and the fact that he, likes his guns. SW asked pt if Roland has ever gotten to a point where he was suicidal and pt said not that she was aware of. SW encouraged pt to spend some time thinking about main points of concern with Roland and narrowing down what she needs from him. Pt was receptive. TREATMENT MODALITY: Supportive Counseling OBJECTIVE: Develop coping skills to help with anxiety Navigating co-parenting with father of the baby Processing grief and trauma that she was experienced Building confidence in enforcing boundaries PERTINENT [...] Ely is a 19-year-old patient who is 12 weeks and 6 days . Ely shows excitement about finding out the gender of the baby and shares she is having a gender reveal green party. Ely presents to session teary and overwhelmed with the recent stressors in her life. These stressors include her job, finding housing, establishing expectations for FOB, and overall finances. Ely is working on showing herself some kindness in times of heightened anxiety. PLAN: Revised goals or interventions: Currently Ely's goal for therapy is to process past losses and to learn coping skills for anxiety in the context of this and preparing for the period. [x] No change in estimated length of treatment. Safety Risk Management: (specify plan to manage self harm/suicide/homicide risk findings if present): No indication fo SI/HI. Below discussed with patient as resources available: Call 911 in an Emergency. Call or text 027 or chat [employer]sh[employer]pping[employer]Mercantila For regional Mental Health Crises Services: [facility] Crisis Line text or call Visit www.Qlusters for further information [place] Call your local community crisis line at: [place]: [facility] [phone] [place]: [facility] [phone] [place]: [facility] [phone] [place]: [facility] [phone] [place]: [facility] [phone] [place]: [facility] Counseling and Support [phone] [place]: [facility] Mental Health [phone] on weekdays 8AM-4:30PM and [phone] on nights and weekends [place]: [facility] [place]: [facility] [phone] [place]: [facility] [phone] [place]: [facility], [place]: [facility] [place]: [facility] Next Appt: June 23 @2pm Assigned Homework: Mindfulness tools, coping skills and replacement activities. Patient Instruction/Education Provided: Verbal Patient understands the plan? [x} Yes * Jazzy Estrada LICSW - 05/19/2024 2:00 PM EST I have reviewed patient chart and discussed this case with JUDY Burgess. I am in agreement with the plan of care as documented. LEWIS Reis Clinical Exhibits Manager Department of Psychiatry [facility] [phone] documented in this encounter Plan of Treatment Upcoming Encounters Date Type Department Care Team (Late st Contact Info) Description 08/08/2024 9:00 AM EST Appointment [facility] [address] [place] [phone] Umu Saucedo, RN 08/15/2024 10:45 AM EST TH Visit (TeleHealth) Obstetrics [place] [phone] Dara Kelley MD [facility] DR [place]ST[place] [address] 11/25/2024 Hospital [place] [address] Dara Gonzalez MD [facility] [place] [address] 07/12/2025 1:40 PM EST Office [place] [phone] Bina Agrawal, JONELLE [facility] [place] [address] documented as of this encounter Visit Diagnoses Diagnosis Anxiety Anxiety state, unspecified documented in this encounter Care Teams Extension Forester Relationship Specialty Start Date End Date Edilma Cornejo MD [facility] [place] [address] PCP - General 12/05/22 documented as of this encounter
--- OUTSIDE RECORDS SUMMARY | 2024-07-29 00:21 | XMS_ITS | Encounter Summary ---
Author Organization [facility] Address [facility] [place] [address] Care Team Providers Care Real Estate Agency Licensee Name Role Phone Edilma Cornejo MD Primary Care Provider [phone] Encounter Details Date Type Department Care Team (Late st Contact Info) Description 05/19/2024 Notes Only Obstetrics [place] [phone] Franky Sanchez Social History Tobacco Use Types [...] from your doctor or pharmacy? Never 04/15/2024 [facility] Utilities Answer Date Recorded In [...] in the past 12 m [facility], were you homeless or living in a alf (including now)? No 04/15/2024 DH IPV Inpatient [...] as of this encounter Progress Notes * Franky Sanchez - 05/19/2024 2:52 PM EST Outpatient Therapy Visit Note Ely Mahmood gave permission for and was seen for today's appointment. Time Spent: 60 minutes Additional Attendee(s): (identify by relationship to pt.) Franky Sanchez, [facility] Student. Patient provides verbal consent for [facility] student to join visit. CHIEF COMPLAINT/DIAGNOSIS: (symptoms, [...] shares she is having a gender reveal alliance party. Ely presents to session teary and [...] 911 in an Emergency. Call or text 869 or chat [place]Life For regional Mental Health Crises Services: [facility] Crisis Line text or call Visit www.Bacula for further information [place] Call your local community crisis line at: [place]: [facility] [phone] [place]: [facility] [phone] [place]: [facility] [phone] [place]: [facility] [phone] [place]: [facility] [phone] [place]: [facility] Counseling and Support [phone] [place]: [facility] Mental Health [phone] on weekdays 8AM-4:30PM and [phone] on nights and weekends [place]: [facility] [place]: [facility] [phone] [place]: [facility] Services [phone] [place]: [facility] Services, [place]: [facility] [place]: [facility] Next Appt: June 23 @2pm Assigned Homework: Mindfulness tools, coping skills and replacement activities. Patient Instruction/Education Provided: Verbal Patient understands the plan? [x} Yes * Norah Lakhani MSW - 05/19/2024 2:52 PM EST I have reviewed patient chart and discussed this case with JUDY Christensen Student. I am in agreement with the plan of care as documented. JUDY Burgess Pronouns: She/Her Department of Obstetrics and Gynecology [facility] documented in this encounter Plan of Treatment Upcoming Encounters Date Type Department Care Team (Late st Contact Info) Description 08/08/2024 9:00 AM EST Appointment [facility] [address] [address] Umu Saucedo RN 08/15/2024 10:45 AM EST TH Visit (TeleHealth) Obstetrics [place] [address] Dara Kelley MD [facility] [place] [address] 11/25/2024 Hospital Encounter Birthing [place] [place] [address] Dara Gonzalez MD [facility] [place] [address] 07/12/2025 1:40 PM EST Office Visit Ophthalmology at [address] Bina Agrawal, JONELLE [facility] [place] [address] documented as of this encounter Visit Diagnoses Not on filedocumented in this encounter Care Teams Real Estate Agency Licensee Relationship Specialty Start Date End Date Edilma Cornejo MD [facility] [place] [address] PCP - General 12/05/22 documented as of this encounter
--- OUTSIDE RECORDS SUMMARY | 2024-07-29 00:21 | XMS_ITS | Encounter Summary ---
Author Organization [facility] [address] Care Team Providers Care Sales Store Checker Name Role Phone Edilma Cornejo MD Primary Care Provider [phone] Encounter Details Date Type Department Care Team (Latest Contact Info) Description 06/30/2024 10:58 AM EST - 06/30/2024 11:59 PM EST Hospital Encounter Non-Invasive [place] [phone] Chest pressure Discharge Disposition: Home Social History Tobacco Use [...] from your doctor or pharmacy? Never 04/15/2024 [facility] Utilities Answer Date Recorded In the past 12 months has e electric, gas, oil, or water [employer] threatened to shut off services in your [...] any time in the past 12 m [facility], were you homeless or living in a snf (including now)? No 04/15/2024 DH IPV Inpatient [...] AM EST documented as of this encounter Medications at Time of Discharge Medication Sig Dispensed Refills Start Date End Date Doxylamine Succinate (Unisom, doxylamine,) 25 mg Tablet Take 1 tablet by mouth nightly. 30 tablet 3 06/02/2024 pyridoxine, Vitamin B6, (Vitamin B6) 50 mg tablet Take 1 tablet by mouth daily. 30 tablet 3 06/02/2024 vitamin with kjtqprco-Ye-Rave-FA Tablet Take 1 tablet by mouth daily. albuteroL 90 mcg/actuation HFA Aerosol Inhaler Inhale 2 puffs into the lungs every 4 hours as needed for Wheezing. Use with spacer 1 each 5 05/29/2023 documented as of this encounter Plan of Treatment Upcoming Encounters Date Type Department Care Team (Late st Contact Info) Description 08/08/2024 9:00 AM EST Appointment [address] [address] Umu Saucedo RN 08/15/2024 10:45 AM EST TH Visit (TeleHealth) Obstetrics and Gynecology at [place] [phone] Dara Kelley MD [facility] [place] [address] 11/25/2024 [place] [phone] Dara Gonzalez MD [facility] [place] [address] 07/12/2025 1:40 PM EST Office Visit Ophthalmology at [place] [phone] Bina Agrawal OD [facility] [place] [address] documented as of this encounter Procedures Procedure Name Priority Date/Time Associated Diagnosis Comments EKG 12-LEAD STAT 06/30/2024 11:12 AM EST Chest pressure documented in this encounter Results * EKG 12 Lead (06/30/2024 11:12 AM EST) Ventricular rate 94 BPM MUSE SYSTEM Atrial Rate 94 BPM MUSE SYSTEM P-R Interval 114 ms MUSE SYSTEM QRS Duration 70 ms MUSE SYSTEM Q-T Interval 328 ms MUSE SYSTEM QTC Calculated (Bezet) 410 ms MUSE SYSTEM Calculated P [place] 56 degrees MUSE SYSTEM Calculated R [place] 18 degrees MUSE SYSTEM Calculated T [place] 33 degrees MUSE SYSTEM INTERPRETATION Normal sinus rhythm with sinus arrhythmia Normal ECG When compared with ECG of 02-APR-2005 09:35, PREVIOUS ECG IS PRESENT Confirmed by MD EDMOND, GAEL ([id number]) on 06/30/2024 11:32:01 PM MUSE SYSTEM 06/30/2024 11:1 2 AM EST 06/30/2024 11:32 PM EST Mariola Escamilla MD ECG ORDERABLES MUSE SYSTEM documented in this encounter Visit Diagnoses Diagnosis Chest pressure Other chest pain documented in this encounter Care Teams Sales Store Checker Relationship Specialty Start Date End Date Edilma Cornejo MD [facility] [place] [address] PCP - General 12/05/22 documented as of this encounter
--- OUTSIDE RECORDS SUMMARY | 2024-07-29 00:21 | XMS_ITS | Encounter Summary ---
Author Organization [facility] [place] [address] Care Team Providers Care Sourcing Coordinator Name Role Phone Edilma Cornejo MD Primary Care Provider [phone] Encounter Details Date Type Department Care Team (Latest Contact Info) Description 06/30/2024 11:45 AM EST Laboratory Appointment [place] [phone] with 18 completed weeks gestation; Fatigue, unspecified type Social History Tobacco Use Types Packs/Day Years [...] from your doctor or pharmacy? Never 04/15/2024 [facility] Utilities Answer Date Recorded In [...] any time in the past 12 m [facility], were you homeless or living in a penitentiary (including now)? No 04/15/2024 IPV Inpatient Questions [...] Description 08/08/2024 9:00 AM EST Appointment [address] [address] Umu Saucedo RN 08/15/2024 10:45 AM EST TH Visit (TeleHealth) Obstetrics and Gynecology at [place] [phone] Dara Kelley MD [facility] OB[place] [address] 11/25/2024 Hospital [place] [address] Dara Gonzalez MD [facility] OBSTETRICS [place] [address] 07/12/2025 1:40 PM EST Office Visit Ophthalmology at [place] [phone] Bina Agrawal OD [facility] [place] [address] documented as of this encounter Procedures Procedure Name Priority Date/Time Associated Diagnosis Comments HEMOGRAM Routine 06/30/2024 11:23 AM EST with 18 completed weeks gestation Fatigue, unspecified type COMPREHENSIVE METABOLIC PANEL Routine 06/30/2024 11:23 AM EST with 18 completed weeks gestation Fatigue, unspecified type documented in this encounter Results * (ABNORMAL) Comprehensive metabolic panel Non-fasting (06/30/2024 11:23 AM EST) Glucose 65 65 - 199 mg/dL 06/30/2024 12:14 PM [facility] Comment:Glucose Concentratio n >=200 mg/dL plus symptoms is consistent with Diabetes Mellitus. Blood Urea Nitrogen 6(L) 8 - 18 mg/dL 06/30/2024 12:14 PM [facility] Creatinine 0.71 0.70 - 1.20 mg/dL 06/30/2024 12:14 PM [facility] Sodium 135 135 - 145 mMol/L 06/30/2024 12:14 PM [facility] Potassium 4.1 3.5 - 5.0 mMol/L 06/30/2024 12:14 PM [facility] Chloride 103 98 - 107 mMol/L 06/30/2024 12:14 PM [facility] Carbon Dioxide 22 22 - 31 mMol/L 06/30/2024 12:14 PM [facility] Anion Gap 10 5 - 15 mMol/L 06/30/2024 12:14 PM [facility] Calcium 9.5 8.5 - 10.5 mg/dL 06/30/2024 12:14 PM [facility] Protein, Total 7.5 6.1 - 8.0 g/dL 06/30/2024 12:14 PM [facility] Albumin 3.9 3.2 - 5.2 g/dL 06/30/2024 12:14 PM [facility] Aspartate Aminotransferase 16 <=30 unit/L 06/30/2024 12:14 PM [facility] Alanine Aminotransferase 9 0 - 30 unit/L 06/30/2024 12:14 PM [facility] Alkaline Phosphatase 51 35 - 105 unit/L 06/30/2024 12:14 PM [facility] Bilirubin, Total 0.2 <=1.3 mg/dL 06/30/2024 12:14 PM [facility] Est Glomerular Filtration Rate - Female 125 mL/min/1. 73 m?? 06/30/2024 12:14 PM [facility] Comment: This patient's estimated GFR [...] Foundation Fasting Status No 06/30/2024 12:14 PM [facility] Blood VENOUS BLOOD SPECIMEN / Unknown Venipuncture / Unknown 06/30/2024 11:23 AM EST 06/30/2024 11:29 AM EST Mariola Escamilla MD CHEMISTRY ORDERABLE S Performing Organization Address City/State/[facility] Co de Phone Number [facility] [place] [address] * (ABNORMAL) Hemogram (06/30/2024 11:23 AM EST) White Blood Cell 15.60(H) 4.00 - 9.50 x10(3)/mc L 06/30/2024 11:45 AM [facility] Red Blood Cell 4.30 4.00 - 5.21 x10(6)/mc L 06/30/2024 11:45 AM [facility] Hemoglobin 12.7 11.7 - 15.5 g/dL 06/30/2024 11:45 AM [facility] Hematocrit 38.7 35.7 - 45.8 % 06/30/2024 11:45 AM [facility] Mean Cell Volume 90.0 82.6 - 94.4 fL 06/30/2024 11:45 AM [facility] Mean Cell Hemoglobin 29.5 27.1 - 32.0 pg 06/30/2024 11:45 AM [facility] Mean Cell Hemoglobin Concentration 32.8 31.7 - 35.0 g/dL 06/30/2024 11:45 AM [facility] Platelet 359(H) 145 - 357 x10(3)/mc L 06/30/2024 11:45 AM [facility] Mean Platelet Volume 9.5 7.6 - 12.9 fL 06/30/2024 11:45 AM [facility] RDW Standard Deviation 41.6 37.0 - 46.0 fL 06/30/2024 11:45 AM [facility] RDW coefficient of variation 12.9 11.5 - 14.1 % 06/30/2024 11:45 AM [facility] NRBC% auto 0.0 % 06/30/2024 11:45 AM [facility] NRBC Absolute <0.01 <0.01 x10(3)/mc L 06/30/2024 11:45 AM [facility] Blood VENOUS BLOOD SPECIMEN / Unknown Venipuncture / Unknown 06/30/2024 11:23 AM EST 06/30/2024 11:29 AM EST Mariola Escamilla MD HEMATOLOGY ORDERABL ES [facility] [place] [address] documented in this encounter Visit Diagnoses Diagnosis with 18 completed weeks gestation Fatigue, unspecified type documented in this encounter Care Teams Sourcing Coordinator Relationship Specialty Start Date End Date Edilma Cornejo MD [facility] [place] [address] PCP - General 12/05/22 documented as of this encounter
--- OUTSIDE RECORDS SUMMARY | 2024-07-29 00:21 | XMS_ITS | Encounter Summary ---
Author Organization [facility] Address [facility] [place] [address] Care Team Providers Care Civil Service Clerk Name Role Phone Edilma Cornejo MD Primary Care Provider [phone] Encounter Details Date Type Department Care Team (Late st Contact Info) Description 05/04/2024 11:21 AM EST [place]est[place] [phone] Nuzhat Cavazos MD [facility] DR [place] [address] Anesthesia Record Procedure Summary Procedure Name Responsible Anesthesiologist Anesthesia Start Time Anesthesia Stop Time AMB REFERRAL TO ANETHESIA PRE-OPERATIVE EVALUATION Events No events on file. Meds * Agents No agents on file. * Blood No blood administrations on file. Lines, Drains, and Airways No LDAs on file. documented in this encounter Social History Tobacco Use Types Packs/Day Years [...] any time in the past 12 m [facility], were you homeless or living in [...] AM EST documented as of this encounter OR Notes * Anesthesia Preprocedure Evaluation - Nuzhat Cavazos MD - 05/04/2024 8:13 AM EST Images from the original note were not included. Pre-Anesthesia Evaluation for: Ely norwood 19 y.o. female. Patient Active Problem List Diagnosis Date Noted ??? care 04/15/2024 ??? Chlamydia infection affecting in first trimester 04/15/2024 ??? Housing instability 04/15/2024 ??? Asthma 04/15/2024 ??? Generalized anxiety disorder 05/19/2023 ??? Subclinical hypothyroidism 02/06/2022 ??? Depression 10/05/2018 ??? 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 Conductive hearing loss, unilateral with unrestricted hearing on the contralateral side 09/06/2013 ??? 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 Acne vulgaris 10/26/2019 ??? Asthma asthma as baby ??? Bronchopulmonary dysplasia ??? Chronic otitis media ??? Depression 10/05/2018 ??? Developmental delay ??? infant Ex-29 week ??? Scoliosis ??? Speech delay Past Surgical History: Procedure Laterality Date ??? CREATED BY INTERFACE ADENOIDECTOMY PRIMARY UNDER AGE 11 / VAPORIZATION ADENOIDS Procedure Date: 10/26/2008 ??? CREATED BY INTERFACE MYRINGOTOMY, INSERTION OF TUBE PARESH / BILATERAL Procedure Date: 05/22/2006 ??? CREATED BY INTERFACE MYRINGOTOMY, INSERTION OF TUBE PARESH / BILATERAL Procedure Date: 09/15/2007 ??? TYMPANOMASTOIDECTOMY ??? TYMPANOSTOMY TUBE PLACEMENT Social History Tobacco Use ??? Smoking status: Never Passive exposure: Yes ??? Smokeless tobacco: Never Substance Use Topics ??? Alcohol use: No Social History Substance and Sexual Activity Drug Use No Allergies Allergen Reactions ??? Band-Aid [Adhesive Bandage] Rash Fabric band-aids Medications: MAR and/or home medications have been reviewed. Physical Exam: Preprocedure Vitals Current as of 05/04/24 0813 No BP, pulse, respiration, SpO2, or temperature recorded. Height: Weight: BMI: IBW: 39.1 kg (86 lb 3.6 oz) Anesthesia Physical Exam Last Filed Perioperative Cognitive Screening None Anesthesia Plan Anesthesia Screening Note: Date and Time of Entry: 05/04/2024 3:35 PM Reason for Evaluation: Surgeon Request Screening Visit Type: Interviewed in person Findings, Assessment and Plan: 19 y.o. 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 Cardiopulmonary Test Results: No cardiopulmonary history. Functional Capacity: >4 METs Allergies reviewed Labs reviewed ASSESSMENT: Ms. 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 Her previous AP of her thoracolumbar spine is actually shows a fairly straight spine without spondylolisthesis and vertebral body height is maintained (image copied below ). There is slight curvature as her thoracic spine transitions into her lumbar spine and around L3, however fairly minimal. An ultrasound was used to visualize potential spaces to approach and it appears her lumbar spine is very close to mid-line (approx. 1/2cm left of midline). Given this and her reassurring physical exam, I believe patient is a good candidate for an epidural and/or s celso/CSE if needed. She currently would like an unmedicated , but is amenable to neuraxial ifneeded. Discussed with patient that in patients with scoliosis, she is at increased risk for inadequate coverage from her epidural. Discussed with patient the overall process and risks/benefits of epidurals, as well as spinals, combined spinal epidurals, section and general anesthesia. Consent for labor analgesia/anesthesia was obtained. Case discussed with Dr. Carlos. Nuzhat Cavazos MD 05/04/2024 [facility] phone extension: [phone] documented in this encounter Plan of Treatment Upcoming Encounters Date Type Department Care Team (Late st Contact Info) Description 08/08/2024 9:00 AM EST Appointment [address] [phone] Umu Saucedo RN 08/15/2024 10:45 AM EST TH Visit (TeleHealth) [place] [address] Dara Kelley MD [facility] OBSTETRICS [place] [address] 11/25/2024 Hospital [place] [address] Dara Gonzalez MD [facility] OBSTETRICS [place] [address] 07/12/2025 1:40 PM EST Office Visit Ophthalmology at [address] Bina Agrawal OD [facility] [place] [address] documented as of this encounter Visit Diagnoses Not on filedocumented in this encounter Care Teams Civil Service Clerk Relationship Specialty Start Date End Date Edilma Cornejo MD [facility] [place] [address] PCP - General 12/05/22 documented as of this encounter
--- OUTSIDE RECORDS SUMMARY | 2024-07-29 00:21 | XMS_ITS | Encounter Summary ---
Author Organization [facility] Address [facility] [place] [address] Care Team Providers Care Creamery Worker Name Role Phone Edilma Cornejo MD Primary Care Provider [phone] Encounter Details Date Type Department Care Team (Late st Contact Info) Description 05/13/2024 1:40 PM EST Routine Obstetrics [place] [address] Myriam King V, [place] [facility] OBSTETRICS [place] [address] GA: 12w0d Social History Tobacco Use Types Packs/Day Years [...] from your doctor or pharmacy? Never 04/15/2024 [facility] Utilities Answer Date Recorded In [...] any time in the past 12 m [facility], were you homeless or living in a jail (including now)? No 04/15/2024 IPV Inpatient Questions [...] Sign Reading Time Taken Comments Blood Pressure 113/56 05/13/2024 1:32 PM EST Pulse - - Temperature - - Respiratory Rate - - Oxygen Saturation - - Inhaled Oxygen Concentration - - Weight 56.7 kg (125 lb 1.6 oz) 05/13/2024 1:32 P M EST Height - - Body Mass Index 25.27 05/04/2024 3:00 PM EST documented in this encounter Progress Notes * Myriam King V, KINGSLEY - 05/13/2024 1:40 PM EST Subjective: Ely Mahmood presents today at 12w0d for her initial in person appointment with physical exam. She denies any vaginal bleeding, abdominal pain, or cramping. She has been feeling some nausea and fatigue (works overnight on the weekends). Questions and concerns discussed today: A lot of stress re housing, her sister. She is following up with Social Work Objective: GA: 12w0d, FH: , FHR: , Movement: , Presentation: Vitals: LMP 02/19/2024 VE: / / / / , [place]ello: General: alert, well appearing, in no apparent distress Lab Results Component Value Date TSH 1.87 04/15/2024 Assessment/Plan: 19 y.o. at 12w0d. This has been complicated by: Chlamydia in Neg on 04/15 Plan for repeat STI panel with 32-wk labs Positive TPO antibody titer Recheck TSH in 4 weeks Anxiety, depression - stable Unstable housing - working with perinatal social worker Scoliosis, congenital bony malformation Anesthesia consult done US reviewed: CRL consistent with LMP. Will use LMP for dating. Lab results reviewed: WNL Urine culture neg Covid vaccine: 05/07 Genetic screening: Panorama cfDNA: low risk SMA & CF: neg Reviewed warning signs and reasons to call. Return for follow up appointment at 16 wks either by telehealth or in person. Myriam King APRN 05/13/2024 documented in this encounter Plan of Treatment Upcoming Encounters Date Type Department Care Team (Late st Contact Info) Description 08/08/2024 9:00 AM EST Appointment [address] [phone] Umu Saucedo RN 08/15/2024 10:45 AM EST TH Visit (TeleHealth) Obstetrics [place] [address] Dara Kelley MD [facility] DR OBSTETRICS [place] [address] 11/25/2024 Hospital [place] [address] Dara Gonzalez MD [facility] DR OBSTETRICS [place] [address] 07/12/2025 1:40 PM EST Office Visit [place] [address] Bina Agrawal OD [facility] [place] [address] documented as of this encounter Results * TSH Yates (06/02/2024 10:18 AM EST) Thyroid Stimulating Hormone 3.10 0.27 - 4.20 mcIU/mL 06/02/2024 11:04 AM EST [facility] Comment: Reference Interval (mcIU/mL): ?? Females: ? First Trimester: 0.23-3.88 ? Second Trimester: 0.22-3.90 ? Third Trimester: 0.44-4.66 Blood VENOUS BLOOD SPECIMEN / Unknown Venipuncture / Unknown 06/02/2024 10:18 AM EST 06/02/2024 10:25 AM EST Myriam King V, [place] CHEMISTRY KERA MORRISON Performing Organization Address City/State/[facility] Co de Phone Number [facility] [place] [address] documented in this encounter Visit Diagnoses Diagnosis care in first trimester documented in this encounter Care Teams Creamery Worker Relationship Specialty Start Date End Date Edilma Cornejo MD [facility] [address] PCP - General 12/05/22 documented as of this encounter
--- OUTSIDE RECORDS SUMMARY | 2024-07-29 00:21 | XMS_ITS | Encounter Summary ---
Author Organization [facility] [place] [address] Care Team Providers Care Ehr Trainer Name Role Phone Edilma Cornejo MD Primary Care Provider [phone] Encounter Details Date Type Department Care Team (Late st Contact Info) Description 05/30/2024 Telephone Obstetrics [place] [phone] Lora Young, RN Social History Tobacco Use Types Packs/Day [...] any time in the past 12 m [facility], were you homeless or living in a half-way (including now)? No 04/15/2024 [facility] IPV Inpatient [...] encounter Miscellaneous Notes * Telephone Encounter - Lora Young, RN - 05/30/2024 10:08 AM EST RTC to Ely Mahmood 19 y.o. at 14w3d to discuss request for ultrasound and increased cramping. Ely reports that over the last few days she noticed more frequent cramping. Reports that last night she was sleeping and woke up due to cramping. She does not recall if the pain was generalized or at a specific spot. Reports she is unsure how long the cramping lasts. Unsure if there is a pattern to cramping. No cramping so far today. Denies VB. Reports vaginal discharge has been normal (clear to creamy). Denies vulvovaginal itching/irritation. Denies urinary concerns like dysuria and urgency. Noticed she has constipated recently. Does not remember the last time she moved her bowels, perhaps on Thursday. Vomited on Thursday prior to ED visit last week for influenza. Able to tolerate PO intake. She is having issues drinking water. Reports she just forgets to drink water. Encouraged increase in water intake with flavored pollock as this can decrease cramping and assist with constipation. Advised individuals should take in 2-3L of water daily, but to slowly increase to get to this level. She is still taking Tamiflu for influenza as well. Reports no more fevers sinceprior to her ED visit 05/25 and is noticing improvements in flu symptoms. Offered to discuss patients concern with NPOC and call her back. Ely agrees with this plan and was educated to urgently callback with VB, worsening pain, or further concerns. Spoke with NPOC about patient's concerns. NPOC advised for increased water intake to combat uterineor GI cramping. NPOC also offered the POCUS could be offered at 06/02 visit, but patient could present earlier for [facility] with nursing. Ely agrees with increasing fluids and POCUS plan. Declines nursing visit at this time. Educated Ely to call back with worsening symptoms or concerns and she agreeswith plan. * Telephone Encounter - Lora Young RN - 05/30/2024 10:08 AM EST ----- Message from Maria Luisa U sent at 05/30/2024 9:45 AM EST ----- Regarding: requesting U/S Ely calls requesting an U/S. I asked her if anything was going on and she said she just want one. Can someone please call her to chat about this. Thank you Maria Luisa documented in this encounter Plan of Treatment Upcoming Encounters Date Type Department Care Team (Late st Contact Info) Description 08/08/2024 9:00 AM EST Appointment [address] [phone] Umu Saucedo RN 08/15/2024 10:45 AM EST TH Visit (TeleHealth) Obstetrics and Gynecology at [place] [phone] Dara Kelley MD [facility] OBSTETRICS [place] [address] 11/25/2024 Hospital [place] [address] Dara Gonzalez MD [facility] OBSTETRICS [place] [address] 07/12/2025 1:40 PM EST Office Visit Ophthalmology at [place] [phone] Bina Agrawal OD [facility] [place] [place] [address] documented as of this encounter Visit Diagnoses Not on filedocumented in this encounter Care Teams Ehr Trainer Relationship Specialty Start Date End Date Edilma Cornejo MD [facility] [place] [address] PCP - General 12/05/22 documented as of this encounter
--- OUTSIDE RECORDS SUMMARY | 2024-07-29 00:21 | XMS_ITS | Encounter Summary ---
Author Organization [facility] Address [facility] Chantal [place] [address] Care Team Providers Care Specification Consultant Name Role Phone Edilma Cornejo MD Primary Care Provider [phone] Reason for Visit * Reason Comments Routine Visit Encounter Details Date Type Department Care Team (Late st Contact Info) Description 06/30/2024 9:00 AM EST Routine Obstetrics [place] [address] Mariola Escamilla MD [facility] OBSTETRICS AND [place] [address] GA: 18w6d Social History Tobacco Use Types Packs/Day Years [...] your doctor or pharmacy? Never 04/15/2024 [facility] Utilities Answer Date Recorded In [...] time in the past 12 m [facility], were you homeless or living in a [...] Sign Reading Time Taken Comments Blood Pressure 110/60 06/30/2024 9:22 AM EST Pulse - - Temperature - - Respiratory Rate - - Oxygen Saturation - - Inhaled Oxygen Concentration - - Weight 56.4 kg (124 lb 6.4 oz) 06/30/2024 9:22 A M EST Height - - Body Mass Index 25.13 05/25/2024 8:15 PM EST documented in this encounter Progress Notes * Mariola Escamilla MD - 06/30/2024 9:00 AM EST Visit Subjective: Ely Mahmood is a female at 18w6d presenting for a routine visit. c/b influenza in the first trimester and anxiety. She denies any vaginal bleeding or cramping. Shereports good movement. 2 days ago had some watery discharge. Now egg-white like. No pain, odor or itching. No bleeding. Has had some tightness in her stomach. About once per day. Around belly button. Some chest tightness on the way here. Very mild. Now completely resolved. Has had shortness of breath for all of . Feels weak. And gets pale. Anxiety has been pretty bad. Not on meds. Objective: BP 110/60 Wt 56.4 kg (124 lb 6.4 oz) LMP 02/19/2024 BMI 25.13 kg/m?? Gen: Well-appearing female in NAD CV: RRR, no m/r/g Pulm: CTAB Abd: Soft, non-tender, gravid Pelvic: Normal external genitalia, closed appearing cervix, moderate white discharge in the vault FHR: 150's Assessment/Plan: 19 y.o. at 18w6d gestation. - Influenza in first trimester: received tamiflu - Chest pressure and shortness of breath: likely just anxiety and fatigue. Will get CBC, CMP and EKG. Advised if symptoms worsen or continue that she should call or go to the ER. - Anxiety: has appt coming up with [facility] - Vaginal discharge: likely physiologic. Swab done to rule out infection, will send results via [facility]D-[facility]. Morphology ultrasound scheduled Reviewed warning signs and reasons to call. Addendum: EKG prelim read normal. CBC with no anemia and slightly elevated WBC. CMP normal. Messagesent to patient informing her of the results and that she may either be getting over a viral infection or coming down with something which would explain her WBC. Advised her to keep an eye on her symptoms and message/call with any concerns. @SIGN@ documented in this encounter Plan of Treatment Upcoming Encounters Date Type Department Care Team (Late st Contact Info) Description 08/08/2024 9:00 AM EST Appointment [address] [phone] Umu Saucedo RN 08/15/2024 10:45 AM EST TH Visit (TeleHealth) Obstetrics [place] [address] Dara Kelley MD [facility] [place] [address] 11/25/2024 Hospital Encounter Birthing [place] [phone] Dara Gonzalez MD [facility] OBSTETRICS AND [place] [address] 07/12/2025 1:40 PM EST Office Visit Ophthalmology at [place] [phone] Bina Agrawal OD [facility] [address] Scheduled Orders Name Type Priority Associated Diagnoses Orde r Schedule GC/Chlamydia Microbiology Routine Vaginal discharge Expected: 06/30/2024, Expires: 09/28/2024 documented as of this encounter Procedures Procedure Name Priority Date/Time Associated Diagnosis Comments VAGINITIS/OSIS PANEL ([facility]D/[facility]H/CGP) Routine 06/30/2024 2:18 PM EST Vaginal discharge documented in this encounter Results * Vaginitis/osis Panel ([facility]/APD/NLH/CGP) (06/30/2024 2:18 PM EST) Bacterial Vaginosis Negative Negative, Invalid, Equivocal 07/01/2024 2:36 AM [facility] Berenice sp. Group Negative Negative, Invalid, Equivocal 07/01/2024 2:36 AM [facility] Berenice glabrata PCR Negative Negative, Invalid, Equivocal 07/01/2024 2:36 AM [facility] Trichomonas vaginalis PCR Negative Negative, Invalid, Equivocal 07/01/2024 2:36 AM [facility] Swab VAGINAL STRUCTURE / Unknown Non Blood Collection / Unknown 06/30/2024 2:18 PM EST 06/30/2024 2:52 PM EST [facility] - 07/01/2024 2:36 AM EST Results [...] and BV Assay were tested on the [employer]. ?? These assays are cleared by the [place] Food & Drug Administration for clinical testing. Mariola Escamilla MD MICROBIOLOGY - [facility] ORDERABLES [facility] [place] [address] * (ABNORMAL) Comprehensive metabolic panel Non-fasting (06/30/2024 11:23 AM EST) Glucose 65 65 - 199 mg/dL 06/30/2024 12:14 PM [facility] Comment:Glucose Concentratio n >=200 mg/dL plus symptoms is consistent with Diabetes Mellitus. Blood Urea Nitrogen 6(L) 8 - 18 mg/dL 06/30/2024 12:14 PM [facility] Creatinine 0.71 0.70 - 1.20 mg/dL 06/30/2024 12:14 PM [facility] Sodium 135 135 - 145 mMol/L 06/30/2024 12:14 PM [facility] Potassium 4.1 3.5 - 5.0 mMol/L 06/30/2024 12:14 PM [facility] Chloride 103 98 - 107 mMol/L 06/30/2024 12:14 PM [facility] Carbon Dioxide 22 22 - 31 mMol/L 06/30/2024 12:14 PM [facility] Anion Gap 10 5 - 15 mMol/L 06/30/2024 12:14 PM [facility] Calcium 9.5 8.5 - 10.5 mg/dL 06/30/2024 12:14 PM [facility] Protein, Total 7.5 6.1 - 8.0 g/dL 06/30/2024 12:14 PM [facility] Albumin 3.9 3.2 - 5.2 g/dL 06/30/2024 12:14 PM [facility] Aspartate Aminotransferase 16 <=30 unit/L 06/30/2024 12:14 PM [facility] Alanine Aminotransferase 9 0 - 30 unit/L 06/30/2024 12:14 PM [facility] Alkaline Phosphatase 51 35 - 105 unit/L 06/30/2024 12:14 PM EST [facility] Bilirubin, Total 0.2 <=1.3 mg/dL 06/30/2024 12:14 PM EST [facility] Est Glomerular Filtration Rate - Female 125 mL/min/1. 73 m?? 06/30/2024 12:14 PM EST [facility] Comment: This patient's estimated GFR was [...] Foundation Fasting Status No 06/30/2024 12:14 PM [facility] Blood VENOUS BLOOD SPECIMEN / Unknown Venipuncture / Unknown 06/30/2024 11:23 AM EST 06/30/2024 11:29 AM EST Mariola Escamilla MD CHEMISTRY ORDERABLE S [facility] [place] [address] * (ABNORMAL) Hemogram (06/30/2024 11:23 AM EST) White Blood Cell 15.60(H) 4.00 - 9.50 x10(3)/mc L 06/30/2024 11:45 AM EST [facility] Red Blood Cell 4.30 4.00 - 5.21 x10(6)/mc L 06/30/2024 11:45 AM [facility] Hemoglobin 12.7 11.7 - 15.5 g/dL 06/30/2024 11:45 AM EST [facility] Hematocrit 38.7 35.7 - 45.8 % 06/30/2024 11:45 AM [facility] Mean Cell Volume 90.0 82.6 - 94.4 fL 06/30/2024 11:45 AM [facility] Mean Cell Hemoglobin 29.5 27.1 - 32.0 pg 06/30/2024 11:45 AM [facility] Mean Cell Hemoglobin Concentration 32.8 31.7 - 35.0 g/dL 06/30/2024 11:45 AM [facility] Platelet 359(H) 145 - 357 x10(3)/mc L 06/30/2024 11:45 AM [facility] Mean Platelet Volume 9.5 7.6 - 12.9 fL 06/30/2024 11:45 AM [facility] RDW Standard Deviation 41.6 37.0 - 46.0 fL 06/30/2024 11:45 AM [facility] RDW coefficient of variation 12.9 11.5 - 14.1 % 06/30/2024 11:45 AM [facility] NRBC% auto 0.0 % 06/30/2024 11:45 AM [facility] NRBC Absolute <0.01 <0.01 x10(3)/mc L 06/30/2024 11:45 AM [facility] Blood VENOUS BLOOD SPECIMEN / Unknown Venipuncture / Unknown 06/30/2024 11:23 AM EST 06/30/2024 11:29 AM EST Mariola Escamilla MD HEMATOLOGY ORDERABL ES [facility] [place] [address] * EKG 12 Lead (06/30/2024 11:12 AM EST) Ventricular rate 94 BPM MUSE SYSTEM Atrial Rate 94 BPM MUSE SYSTEM P-R Interval 114 ms MUSE SYSTEM QRS Duration 70 ms MUSE SYSTEM Q-T Interval 328 ms MUSE SYSTEM QTC Calculated (Bezet) 410 ms MUSE SYSTEM Calculated P [place] 56 degrees MUSE SYSTEM Calculated R [place] 18 degrees MUSE SYSTEM Calculated T [place] 33 degrees MUSE SYSTEM INTERPRETATION Normal sinus rhythm with sinus arrhythmia Normal ECG When compared with ECG of 02-APR-2005 09:35, PREVIOUS ECG IS PRESENT Confirmed by MD PRUITT ARMIN ([id number]) on 06/30/2024 11:32:01 PM MUSE SYSTEM 06/30/2024 11:1 2 AM EST 06/30/2024 11:32 PM EST Mariola Escamilla MD ECG ORDERABLES MUSE SYSTEM documented in this encounter Visit Diagnoses Diagnosis Chest pressure Other chest pain with 18 completed weeks gestation Fatigue, unspecified type Vaginal discharge Leukorrhea, not specified as infective documented in this encounter Care Teams Specification Consultant Relationship Specialty Start Date End Date Edilma Cornejo MD [facility] [place] [address] PCP - General 12/05/22 documented as of this encounter
--- OUTSIDE RECORDS SUMMARY | 2024-07-29 00:21 | XMS_ITS | Encounter Summary ---
Author Organization [facility] Address [facility] [place] [address] Care Team Providers Care Piano Case And Bench Assembler Name Role Phone Edilma Cornejo MD Primary Care Provider [phone] Reason for Referral * Consultation (Routine) - Closed Specialty Diagnoses / Procedures Referred By Contac t Referred To Contact Obstetrics and Gynecology Diagnoses Premature MFM Consult Jasmina Harvey APRN [facility] [place] [address] [facility] [employer] [address] [place] [address] Referral ID Status Reason Start Date Expiration Date V isits Requested Visits Authorized [id number] Closed Consult, Test & Treat 07/06/2024 07/06/2025 1 1 Encounter Details Date Type Department Care Team (Late st Contact Info) Description 07/06/2024 4:00 PM EST Routine Obstetrics [place] [address] Jasmina Harvey APRN [facility] [place] [address] GA: 19w5d Social History Tobacco Use Types Packs/Day Years [...] the past 12 months has th e [employer], gas, oil, or water [employer] threatened to shut off services in your [...] any time in the past 12 m onths, were you homeless or living in a intermediate (including now)? No 04/15/2024 [facility] IP[facility] Inpatient [...] Pressure 108/64 07/06/2024 3:40 PM EST Pulse - - Temperature - - Respiratory Rate - - Oxygen Saturation - - Inhaled Oxygen Concentration - - Weight 55.5 kg (122 lb 4.8 oz) 07/06/2024 3:40 P M EST Height - - Body Mass Index 24.7 05/25/2024 8:15 PM EST documented in this encounter Progress Notes * Jasmina Harvey APRN - 07/06/2024 4:00 PM EST Subjective: Ely Mahmood is a at 19w5d who presents for a routine appointment. She denies any vaginal bleeding. She reports movement. She notes she had a GI bug and went to the ER the other day, she notes she is feeling better. She has been feeling some cramping lower- she notes she was vomiting. She notes she will have less anxiety after she moves next week. Weight hasn't changed much. Will be having her baby at [facility]. She had her cervix checked last week. Patient reports she was bornat 27+ weeks and she is nervous about delivery. No other concerns. Objective: GA: 19w5d, FH: , FHR: 150's, Movement: Present, Presentation: Vitals: BP 108/64 Wt 55.5 kg (122 lb 4.8 oz) LMP 02/19/2024 BMI 24.70 kg/m?? Assessment/Plan: 19 y.o. at 19w5d gestation. Maternal and evaluation reassuring, no acute concerns. This has been complicated by: Premature - referral to [facility] to discuss with patient Influenza in first trimester: received tamiflu Chest pressure and shortness of breath- sometimes better- pretty common when walking Anxiety: has appt coming up with [facility]- she doesn't take any medication Routine [facility] Genetic screening: low risk, male Reviewed warning signs and reasons to call. Return for next appointment at 24wks Note to patient: The Century Cures Act makes medical notes like this available to patients in the interest of transparency. However, be advised this is a medical document. It is intended as [id number] communication. It is written in medical language and may contain abbreviations or verbiage that are unfamiliar. Jasmina Harvey APRN 07/06/2024 documented in this encounter Plan of Treatment Upcoming Encounters Date Type Department Care Team (Late st Contact Info) Description 08/08/2024 9:00 AM EST Appointment [address] [phone] Umu Saucedo RN 08/15/2024 10:45 AM EST TH Visit (TeleHealth) Obstetrics [place] [address] Dara Kelley MD [facility] [place] [address] 11/25/2024 Hospital [place] [address] Dara Gonzalez MD [facility] [place] [address] 07/12/2025 1:40 PM EST Office [place] [address] Bina Agrawal OD [facility] [place] [address] Scheduled Referrals Name Type Priority Associated Diagnoses Orde r Schedule Referral to Maternal Medicine Outpatient Referral Routine Premature Ordered: 07/06/2024 documented as of this encounter Visit Diagnoses Diagnosis care in second trimester Premature Other infants, unspecified (weight) documented in this encounter Care Teams Piano Case And Bench Assembler Relationship Specialty Start Date End Date Edilma Cornejo MD [facility] [address] PCP - General 12/05/22 documented as of this encounter
--- OUTSIDE RECORDS SUMMARY | 2024-07-29 00:21 | XMS_ITS | Encounter Summary ---
Author Organization [facility] Address [facility] [place] [address] Care Team Providers Care Offender Employment Specialist Name Role Phone Edilma Cornejo MD Primary Care Provider [phone] Reason for Visit * Reason Comments Follow-up Encounter Details Date Type Department Care Team (Late st Contact Info) Description 05/02/2024 1:00 PM EST Office Visit [facility] at [address] [place] [phone] Edilma Patel, PA [address] OB[place] [address] Routine screening for STI (sexually transmitted infection) Social History Tobacco Use Types Packs/Day Years [...] from your doctor or pharmacy? Never 04/15/2024 [facility] Utilities Answer Date Recorded In the past 12 months has e [employer], gas, oil, or water company threatened to [...] any time in the past 12 m [facility], were you homeless or living in a [...] Sign Reading Time Taken Comments Blood Pressure 112/70 05/02/2024 1:01 PM EST Pulse 84 05/02/2024 1:01 PM EST Temperature - - Respiratory Rate - - Oxygen Saturation 99% 05/02/2024 1:01 PM EST Inhaled Oxygen Concentration - - Weight 56 kg (123 lb 6.4 oz) 05/02/2024 1:01 PM EST Height 149.9 cm (4' 11) 05/02/2024 1:01 PM EST Body Mass Index 24.92 05/02/2024 1:01 PM EST documented in this encounter Progress Notes * Edilma Patel PA - 05/02/2024 1:00 PM EST Chief Complaint: Chief Complaint Patient presents with Follow-up Subjective: HPI: Ely Mahmood is a 19 y.o. female presenting to the [facility] with the following concerns. Follow up STI testing. Test positive for Chlamydia 03/22, treated at [facility] 04/15/24 screened negative for GC/CT, Hep C. No new partners since then. She denies vaginal irritation, abnormal vaginal discharge, irregular bleeding, pelvic pain. ROS: Review of Systems Patient's last menstrual period was 02/19/2024. 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 Depression F32.A Subclinical hypothyroidism E03.8 Generalized anxiety disorder F41.1 care Z34.90 Chlamydia infection affecting in first trimester O98.811, A74.9 Housing instability Z59.819 Asthma J45.909 Past Medical History: Diagnosis Date Acne vulgaris 10/26/2019 Asthma asthma as baby Bronchopulmonary dysplasia Chronic otitis media Depression 10/05/2018 Developmental delay infant Ex-29 week Scoliosis Speech delay Past Surgical History: Procedure Laterality Date CREATED BY INTERFACE ADENOIDECTOMY PRIMARY UNDER AGE 12 / VAPORIZATION ADENOIDS Procedure Date: 10/26/2008 CREATED BY INTERFACE MYRINGOTOMY, INSERTION OF TUBE PARESH / BILATERAL Procedure Date: 05/22/2006 CREATED BY INTERFACE MYRINGOTOMY, INSERTION OF TUBE PARESH / BILATERAL Procedure Date: 09/15/2007 TYMPANOMASTOIDECTOMY TYMPANOSTOMY TUBE PLACEMENT Current Outpatient Medications on File Prior to Visit Medication Sig Dispense Refill vitamin with [id number] Tablet Take by mouth. albuteroL 90 mcg/actuation HFA Aerosol Inhaler Inhale 2 puffs into the lungs every 4 hours as needed for Wheezing. Use with spacer 1 each 5 levothyroxine (Synthroid) 50 mcg tablet Take 1 tablet by mouth daily. (Patient not taking: Reportedon 04/18/2024) 90 tablet 3 No current facility-administered medications on file prior to visit. Allergies Allergen Reactions Band-Aid [Adhesive Bandage] Rash Fabric band-aids Objective: VS: BP 112/70 Pulse 84 Ht 149.9 cm (4' 11) Wt 56 kg (123 lb 6.4 oz) LMP 02/19/2024 SpO2 99% BMI 24.92 kg/m?? Physical Exam Constitutional: General: She is not in acute distress. Appearance: Normal appearance. She is normal weight. Cardiovascular: Rate and Rhythm: Normal rate. Pulmonary: Effort: Pulmonary effort is normal. Psychiatric: Mood and Affect: Mood normal. Behavior: Behavior normal. Assessment and Plan: Ely Mahmood is a 19 y.o. female with the following issues: STI screening Discussed STI screening recommendations. Given that she screened negative for GC/CT earlier this month and she has not had any new partners, no need to repeat that test today. Ely was seen today for follow-up . Diagnoses and all orders for this visit: Routine screening for STI (sexually transmitted infection) FOLLOW UP: as needed ABIGAIL Correa 05/02/2024 documented in this encounter Plan of Treatment Upcoming Encounters Date Type Department Care Team (Late st Contact Info) Description 08/08/2024 9:00 AM EST Appointment [address] [phone] Umu Saucedo, RN 08/15/2024 10:45 AM EST TH Visit (TeleHealth) Obstetrics [place] [address] Dara Kelley MD [facility] [place]ST[place] [address] 11/25/2024 Hospital [place] [address] Dara Gonzalez MD [facility] [place] [address] 07/12/2025 1:40 PM EST Office Visit Ophthalmology at [place] [address] Bina Agrawal, JONELLE [facility] [place] [address] documented as of this encounter Visit Diagnoses Diagnosis Routine screening for STI (sexually transmitted infection) Screening examination for venereal disease documented in this encounter Care Teams Offender Employment Specialist Relationship Specialty Start Date End Date Edilma Cornejo MD [facility] [place] [address] PCP - General 12/05/22 documented as of this encounter
--- OUTSIDE RECORDS SUMMARY | 2024-07-29 00:21 | XMS_ITS | Encounter Summary ---
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 Never 04/15/2024 [facility] Utilities Answer Date Recorded In [...] time in the past 12 m [facility], were you homeless or living in [...] Sign Reading Time Taken Comments Blood Pressure 125/78 05/04/2024 3:00 PM EST Pulse 78 05/04/2024 3:00 PM EST Temperature - - Respiratory Rate - - Oxygen Saturation 99% 05/04/2024 3:00 PM EST Inhaled Oxygen Concentration - - Weight 54.9 kg (121 lb) 05/04/2024 3:00 PM EST Height 149.9 cm (4' 11) 05/04/2024 3:00 PM EST Body Mass Index 24.44 05/04/2024 3:00 PM EST documented in this encounter Plan of Treatment Upcoming Encounters Date Type Department Care Team (Late st Contact Info) Description 08/08/2024 9:00 AM EST Appointment [address] [phone] Umu Saucedo, RN 08/15/2024 10:45 AM EST TH Visit (TeleHealth) Obstetrics [place] [address] Dara Kelley MD [facility] [place] [address] 11/25/2024 Hospital [place] [address] Dara Gonzalez MD [facility] [address] 07/12/2025 1:40 PM EST Office Visit Ophthalmology at [facility] [place] [phone] Bina Agrawal OD [facility] [place] [address] Scheduled Referrals Name Type Priority Associated Diagnoses Order Schedule Anesthesia Pre-Operative Evaluation Referral Outpatient Referral Routine 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
--- OUTSIDE RECORDS SUMMARY | 2024-07-29 00:21 | XMS_ITS | Encounter Summary ---
Author Organization [facility] Chantal re[place] [address] Care Team Providers Care Last Model Department Supervisor Name Role Phone Edilma Cornejo MD Primary Care Provider [phone] Encounter Details Date Type Department Care Team (Latest Contact Info) Description 05/25/2024 Travel Social History Tobacco Use Types Packs/Day [...] doctor or pharmacy? Never 04/15/2024 [facility] Utilities Answer Date Recorded In the past 12 months has e [employer] gas, oil, or water [employer] threatened to shut off services in your [...] were you homeless or living in a fpc (including now)? No 04/15/2024 IPV Inpatient Questions [...] Info) Description 08/08/2024 9:00 AM EST Appointment [address] [phone] Umu Saucedo, RN 08/15/2024 10:45 AM EST TH Visit (TeleHealth) Obstetrics [place] [address] Dara Kelley MD [facility] [place] [address] 11/25/2024 Hospital Encounter Birthing [place] [address] Dara Gonzalez MD [facility] [place] [address] 07/12/2025 1:40 PM EST Office Visit Ophthalmology at [place] [address] Bina Agrawal, JONELLE [facility] [place] [address] documented as of this encounter Visit Diagnoses Not on filedocumented in this encounter Care Teams Last Model Department Supervisor Relationship Specialty Start Date End Date Edilma Cornejo MD [facility] [place] [address] PCP - General 12/05/22 documented as of this encounter
--- OUTSIDE RECORDS SUMMARY | 2024-07-29 00:21 | XMS_ITS | Encounter Summary ---
Author Organization [facility] [place] [address] Care Team Providers Care Library Cataloging Technician Name Role Phone Edilma Cornejo MD Primary Care Provider [phone] Encounter Details Date Type Department Care Team (Latest Contact Info) Description 06/02/2024 11:15 AM EST Laboratory Appointment Lab [address], [place] [phone] care in first trimester Social History Tobacco Use Types Packs/Day Years [...] doctor or pharmacy? Never 04/15/2024 [facility] Utilities Answer Date Recorded In [...] in the past 12 m [facility], were you homeless or [...] Description 08/08/2024 9:00 AM EST Appointment [address] [phone] Umu Saucedo RN 08/15/2024 10:45 AM EST TH Visit (TeleHealth) Obstetrics [place] [phone] Dara Kelley MD [facility] DR OBSTETRICS [place] [address] 11/25/2024 Hospital [place] [phone] Dara Gonzalez MD [facility] DR OBSTETRICS [place] [address] 07/12/2025 1:40 PM EST Office [place] [phone] Bina Agrawal OD [facility] [place] [address] documented as of this encounter Procedures Procedure Name Priority Date/Time Associated Diagnosis Comments TSH CASCADE Routine 06/02/2024 10:18 AM EST care in first trimester documented in this encounter Results * TSH [place] (06/02/2024 10:18 AM EST) Thyroid Stimulating Hormone 3.10 0.27 - 4.20 mcIU/mL 06/02/2024 11:04 AM EST [facility] Comment: Reference Interval (mcIU/mL): ?? Females: ? First Trimester: 0.23-3.88 ? Second Trimester: 0.22-3.90 ? Third Trimester: 0.44-4.66 Blood VENOUS BLOOD SPECIMEN / Unknown Venipuncture / Unknown 06/02/2024 10:18 AM EST 06/02/2024 10:25 AM EST Myriam Fernando V, INSTITUTIONAL COMMODITY ANALYST CHEMISTRY KERA MORRISON Performing Organization Address City/State/[facility] Co de Phone Number [facility] [place] [address] documented in this encounter Visit Diagnoses Diagnosis care in first trimester documented in this encounter Care Teams Library Cataloging Technician Relationship Specialty Start Date End Date Edilma Cornejo MD [facility] [place] [address] PCP - General 12/05/22 documented as of this encounter
--- OUTSIDE RECORDS SUMMARY | 2024-07-29 00:22 | XMS_ITS | Encounter Summary ---
Author Organization [facility] Address [facility] [place] [address] Care Team Providers Care Senior Systems Software Engineer Name Role Phone Edilma Cornejo MD Primary Care Provider [phone] Reason for Visit * Reason Comments Ultrasound Routine Visit Encounter Details Date Type Department Care Team (Late st Contact Info) Description 04/18/2024 11:00 AM EST Routine Obstetrics [place] [address] Monika Santo, REFRACTORY PRODUCTS SUPERVISOR [facility] DR OBSTETRICS [place] [address] GA: 8w3d Social History Tobacco Use Types Packs/Day Years [...] from your doctor or pharmacy? Never 04/15/2024 [facility] Utilities Answer Date Recorded In the past 12 months has e [employer], gas, oil, or water company threatened to [...] time in the past 12 m [facility], were you homeless or living in a mcfp (including now)? No 04/15/2024 IPV Inpatient Questions [...] Reading Time Taken Comments Blood Pressure 110/60 04/18/2024 10:49 AM EST Pulse - - Temperature - - Respiratory Rate - - Oxygen Saturation - - Inhaled Oxygen Concentration - - Weight 56.7 kg (125 lb) 04/18/2024 10:49 AM EST Height - - Body Mass Index 25.25 12/26/2023 12:39 PM EDT documented in this encounter Progress Notes * Monika Santo, KINGSLEY - 04/18/2024 11:00 AM EST Subjective: Diego Yousif presents today at 8w3d for her routine appointment. She denies any vaginal bleeding, abdominal pain, or cramping. She has been feeling pretty good, some nausea. Taking a nausea sweet, feels able to cope without. Objective: GA: 8w3d, FH: , FHR: 178, Movement: , Presentation: Vitals: BP 110/60 Wt 56.7 kg (125 lb) LMP 02/19/2024 BMI 25.25 kg/m?? PHQ-9 score = PHQ9 Questionnaire Data: Today's value 04/18/2024 PHQ-9: Responses Post 10/13/22 Conversion Little interest or pleasure Not at all Down, depressed, hopeless Not at all PHQ-2 Subscore 0 US OB Viability Transvaginal Narrative: OBSTETRICS REPORT (Signed Final 04/18/2024 10:01 am) PATIENT INFO: ID #: [id number] : [birth year] (19 yrs)(F) Name: DIEGO MACKENZIE Visit Date: 04/18/2024 09:41 am YOUSIF PERFORMED BY: Attending: Harris Martinez MD Performed By: Celine Solis RDMS Referred By: PATRICIA ROBB Location: [place] SERVICE(S) PROVIDED: [facility]OBTV - 1st Trimester-Transvaginal - [id number] INDICATIONS: 8 weeks gestation of Z3A.08 bleeding in early TECHNIQUE/SCAN QUALITY: Technique: Transducer ID#:[id number] EVALUATION: Num Of Fetuses: 1 Gest. Sac: Visualized Yolk Sac: Visualized Heart Rate(bpm): 178 Presentation: Too early to evaluate Placenta: Too early to evaluate Amniotic Fluid VALDEMAR FV: Too early to evaluate --------- BIOMETRY: --------- CRL: 20.0 mm G.Age: 8w 4d RUFINO: 11/24/24 GESTATIONAL AGE: LMP: 8w 3d Date: 02/19/24 RUFINO: 11/25/24 Best: 8w 3d Det. By: LMP (02/19/24) RUFINO: 11/25/24 CERVIX UTERUS ADNEXA: Right Ovary Size(cm) 3.0 x 1.6 x 1.8 Vol(ml): 4.5 Visualized Left Ovary Size(cm) 2.8 x 1.8 x 1.7 Vol(ml): 4.5 Visualized Cul De Sac No fluid seen Impression: 1st Trimester Summary Single intrauterine with a gestational age of 8w 3d based on LMP (02/19/24) with observed cardiac activity. The crown rump length corresponds to a gestational age of 8w 4d. Electronically signed by: Harris Martinez MD, [facility] ([phone]), at 04/18/2024 9:54 AM Thank you for letting us participate in the care of this patient. If you are a health care provider and have any questions regarding this report, please contact the number above. For patients who have questions, please contact the health career development facilitator that requested your imaging first. Harris Martinez, Physician Electronically Signed Final Report 04/18/2024 10:01 am Physical Exam Body mass index is 25.25 kg/m??. General: Well developed female. Skin: no rashes Neuro: grossly intact Assessment/Plan: 19 y.o. at 8w3d. This has been complicated by: Chlamydia in Neg on 04/15 Plan for repeat STI panel with 32-wk labs Positive TPO antibody titer Start levothyroxine 50mcg daily , has not started yet- needs a recheck in 4 wks from starting TSH with reflex FT4 ordered with lab panel Anxiety, depression Stable today Referral for OBGYN behavioral health for psychotherapy and support Note sent to social/community health work Unstable housing Connecting with social work to help offer patient housing resources and recommendations Note sent to social/community health work Scoliosis, congenital bony malformation Referral placed for anesthesia consult Routine PNC: US reviewed: CRL consistent with LMP. Will use LMP for dating. Lab results reviewed: WNL Urine culture collected Genetic screening: Panorama cfDNA: Desires- not drawn yet SMA & CF: Desires-not drawn yet Reviewed warning signs and reasons to call. Return for follow up appointment at 12 wks either by telehealth or in person. Note to patient: The Century Cures Act makes medical notes like this available to patients in the interest of transparency. However, be advised this is a medical document. It is intended as enby-wt-tsyh communication. It is written in medical language and may contain abbreviations or verbiage that are unfamiliar. Monika Santo APRN 04/18/2024 documented in this encounter Plan of Treatment Upcoming Encounters Date Type Department Care Team (Late st Contact Info) Description 08/08/2024 9:00 AM EST Appointment [address] [phone] Umu Saucedo RN 08/15/2024 10:45 AM EST TH Visit (TeleHealth) Obstetrics and Gynecology at [place] [phone] Dara Kelley MD [facility] OBSTETRICS [place] [address] 11/25/2024 Hospital Encounter Birthing [place] [phone] Dara Gonzalez MD [facility] DR OBSTETRICS [place] [address] 07/12/2025 1:40 PM EST Office Visit Ophthalmology at [address] Bina Agrawal OD [facility] [place] [address] documented as of this encounter Visit Diagnoses Diagnosis care, antepartum Housing instability Generalized anxiety disorder documented in this encounter Care Teams Senior Systems Software Engineer Relationship Specialty Start Date End Date Edilma Cornejo MD [facility] [place] [address] PCP - General 12/05/22 documented as of this encounter
--- OUTSIDE RECORDS SUMMARY | 2024-07-29 00:22 | XMS_ITS | Encounter Summary ---
Author Organization [facility] [place] [address] Care Team Providers Care French Cord Binder Name Role Phone Edilma Cornejo MD Primary Care Provider [phone] Encounter Details Date Type Department Care Team (Latest Contact Info) Description 04/01/2024 1:05 PM EDT Laboratory Appointment Lab [address], [place] [phone] Bleeding in early Social History Tobacco Use Types Packs/Day Years Used Date Smoking Tobacco: Never Passive Smoke Exposure: Yes Smokeless Tobacco: Never Comments:Patient vapes on oc casion (rechargeable cartridge) Alcohol Use Standard Drinks/Week Comments No 0 (1 standard drink = 0.6 oz pur e alcohol) IPV Inpatient Questions Answer Date Recorded Does Anyone Try to Keep You From Having Contact with Others or Doing Things Outside Your Home? no 06/07/2023 Feels Threatened by Someone no 05/16 Feels Unsafe at Home or Work/School no 06/07/2023 Physical Signs of Abuse Present no 06/07/2023 Sex and Gender Information Value Date Recorded Sex Assigned at Female 07/24/2023 9:35 AM EST Gender Identity Female 07/24/2023 9:35 AM EST Sexual Orientation Straight 07/24/2023 9: 35 AM EST documented as of this encounter Plan of Treatment Upcoming Encounters Date Type Department Care Team (Late st Contact Info) Description 08/08/2024 9:00 AM EST Appointment [address] [address] Umu Saucedo RN 08/15/2024 10:45 AM EST TH Visit (TeleHealth) Obstetrics [place] [address] Dara Kelley MD [facility] OBSTETRICS [place] [address] 11/25/2024 Hospital [place] [address] Dara Gonzalez MD [facility] OBSTETRICS [place] [address] 07/12/2025 1:40 PM EST Office Visit [place] [address] Bina Agrawal OD [facility] OPHTHALMOLOGY [place], [place] [phone] documented as of this encounter Procedures Procedure Name Priority Date/Time Associated Diagnosis Comments ABORH RECHECK (PATIENT HISTORY FOUND) Routine 04/01/2024 12:01 PM EDT Bleeding in early TYPE AND SCREEN ([facility]ELANY) Routine 04/01/2024 12:01 PM EDT Bleeding in early BETA HCG, QUANTITATIVE Routine 04/01/2024 12:01 PM EDT Bleeding in early documented in this encounter Results * ABORH RECHECK (PATIENT HISTORY FOUND) (04/01/2024 12:01 PM EDT) ABORH Recheck Progress Complete 04/01/2024 3:02 PM EDT [facility] Blood VENOUS BLOOD SPECIMEN / Unknown Venipuncture / Unknown 04/01/2024 12:01 PM EDT 04/01/2024 12:01 PM EDT Chiquita Ellison LACE PAPER MACHINE OPERATOR BLOOD BANK LA B ORDERABLES Performing Organization Address City/[facility]/ZIP Co de Phone Number [facility] [place] [address] * Type and screen ([facility]ELANY) (04/01/2024 12:01 PM EDT) Pathologist [facility] ABORH Type A POSITIVE 04/01/2024 3:19 PM EDT [facility] PATIENT HISTORY Found 04/01/2024 3:19 PM EDT [facility] Expires at [id number] on: 04-01-2024 04/01/2024 3:19 PM EDT [facility] ANTIBODY SCREEN AUTOMATED Negative 04/01/2024 3:19 PM EDT [facility] T&S only valid at [facility] 04/01/2024 3:19 PM EDT [facility] Blood VENOUS BLOOD SPECIMEN / Unknown Venipuncture / Unknown 04/01/2024 12:01 PM EDT 04/01/2024 12:01 PM EDT Narrative [facility] - 04/01/2024 3:19 PM EDT This Type and Screen result is only valid at the [facility] Chiquita BeardlionEdi LACE PAPER MACHINE OPERATOR BLOOD BANK LA B ORDERABLES [facility] [place] [address] * (ABNORMAL) Beta HCG, quantitative (04/01/2024 12:01 PM EDT) Pathologist [facility] Beta Human Chorionic Gonadotropin, Quantitative 16,731(H) <5 mIU/mL 04/01/2024 1:20 PM EDT [facility] Comment: REFERENCE RANGES ??NON- FEMALE: ??Less than 5 mIU/mL ?? POSTMENOPAUSAL FEMALE: ??Less than 8 mIU/mL ? FEMALES Weeks of ? HCG range ??(mIU/mL) ? 3 weeks ?5.8 - 71.2 ? 4 weeks ?9.5 - 750 ? 5 weeks ? 217 - 1438 ? 6 weeks ? 158 - 31,795 ? 7 weeks ? 3,697 - 163,563 ? 8 weeks ? 32,065 - 149,571 ? 9 weeks ? 63,803 - 151,410 ? 10 weeks ? 46,509 - 186,977 ? 12 weeks ? 27,832 - 210,612 ? 14 weeks ? 13,950 - 62,530 ? 15 weeks ? 12,039 - 70,971 ? 16 weeks ? 9,040 - 56,451 ? 17 weeks ? 8,175 - 58,868 ? 18 weeks ? 8,099 - 37,176 ?? This result was generated using a Tixersas immunoassay. ??Results obtained from other methods or manufacturers cannot be used interchangeably with this method. Blood VENOUS BLOOD SPECIMEN / Unknown Venipuncture / Unknown 04/01/2024 12:01 PM EDT 04/01/2024 12:01 PM EDT Chiquita Ellison LACE PAPER MACHINE OPERATOR CHEMISTRY ORD ERABLES Performing Organization Address City/State/[facility] Co de Phone Number [facility] [place] [address] documented in this encounter Visit Diagnoses Diagnosis Bleeding in early Unspecified hemorrhage in early , unspecified as to episode of care documented in this encounter Care Teams French Cord Binder Relationship Specialty Start Date End Date Edilma Cornejo MD [facility] [address] PCP - General 12/05/22 documented as of this encounter
--- OUTSIDE RECORDS SUMMARY | 2024-07-29 00:22 | XMS_ITS | Encounter Summary ---
Author Organization [facility] Address [facility] [place] [address] Care Team Providers Care Project Management Consultant Name Role Phone Edilma Cornejo MD Primary Care Provider [phone] Encounter Details Date Type Department Care Team (Late st Contact Info) Description 03/19/2024 Lab [place] [phone] Armando Sheikh MD [address] [place] [address] Social History Tobacco Use Types Packs/Day Years Used Date Smoking Tobacco: Never Passive Smoke Exposure: Yes Smokeless Tobacco: Never Comments:Patient vapes on oc casion (rechargeable cartridge) Alcohol Use Standard Drinks/Week Comments No 0 (1 standard drink = 0.6 oz pur e alcohol) DH IPV Inpatient Questions Answer Date Recorded [...] Info) Description 08/08/2024 9:00 AM EST Appointment [address] [address] Umu Saucedo RN 08/15/2024 10:45 AM EST TH Visit (TeleHealth) Obstetrics [place] [address] Dara Kelley MD [facility] [place] [address] 11/25/2024 Hospital Encounter Birthing [place] [phone] Dara Gonzalez MD [facility] [place] [address] 07/12/2025 1:40 PM EST Office Visit [place] [address] Bina Agrawal OD [facility] [place] [address] documented as of this encounter Procedures Procedure Name Priority Date/Time Associated Diagnosis Comments URINE CULTURE Routine 03/19/2024 8:33 PM EDT documented in this encounter Results * (ABNORMAL) Urine culture (03/19/2024 8:33 PM EDT) Urine Culture 10,000-49,00 0 cfu/ml Coagulase Negative Staph, not S.saprophyti cus(A) VITEK 2 METHOD 03/21/2024 1:58 PM EDT [facility] Comment:Susceptibility testi ng not routinely performed for Coagulase Negative Staphylococcus species and other Gram Positive organisms from urine. Urine URINE SPECIMEN OBTAINED BY CLEAN CATCH PROCEDURE / Unknown 03/19/2024 8:33 PM EDT 03/20/2024 12:14 PM EDT Armando Sheikh MD MICROBIOLOGY - GENER AL ORDERABLES [facility] [place] [address] documented in this encounter Visit Diagnoses Not on filedocumented in this encounter Care Teams Project Management Consultant Relationship Specialty Start Date End Date Eidlma Cornejo MD [facility] [place] [address] PCP - General 12/05/22 documented as of this encounter
--- OUTSIDE RECORDS SUMMARY | 2024-07-29 00:22 | XMS_ITS | Encounter Summary ---
Author Organization [facility] [place] [address] Care Team Providers Care Senior Dynamics Crm Developer Name Role Phone Edilma Cornejo MD Primary Care Provider [phone] Encounter Details Date Type Department Care Team (Late st Contact Info) Description 02/02/2024 5:00 PM EDT Laboratory Appointment Lab [address] [place] [phone] Dysuria Social History Tobacco Use Types Packs/Day Years [...] Info) Description 08/08/2024 9:00 AM EST Appointment [address] [phone] Umu Saucedo RN 08/15/2024 10:45 AM EST TH Visit (TeleHealth) Obstetrics [place] [address] Dara Kelley MD [facility] OBST[place] [address] 11/25/2024 Hospital Encounter [place] [address] Dara Gonzalez MD [facility] OBST[place] [address] 07/12/2025 1:40 PM EST Office [place] [address] Bina Agrawal OD [facility] [place] [address] documented as of this encounter Procedures Procedure Name Priority Date/Time Associated Diagnosis Comments URINALYSIS DIPSTICK Routine 02/02/2024 5 :34 PM EDT Dysuria URINE CULTURE Routine 02/02/2024 5:34 PM EDT Dysuria documented in this encounter Results * (ABNORMAL) Urine culture (02/02/2024 5:34 PM EDT) Urine Culture 10,000-49,000 cfu/ml Escherichia coli(A) VITEK 2 METHOD 02/04/2024 7:48 AM EDT [facility] Urine URINE SPECIMEN OBTAINED BY CLEAN CATCH PROCEDURE / Unknown Non Blood Collection / Unknown 02/02/2024 5:34 PM EDT 02/02/2024 5:34 PM EDT Narrative Organism Antibiotic Method Susceptibility Escherichia coli Ampicillin VITEK 2 METHOD <=2.0 ug/ml: Susceptible Escherichia coli Ampicillin + Sulbactam VITEK 2 METHOD <=2.0 ug/ml: Susceptible Escherichia coli Cefazolin (Systemic) VITEK 2 METHOD Susceptible Escherichia coli Cefazolin (Urine) VITEK 2 METHOD Susceptible Escherichia coli Cephalexin (deduced from Cefazolin) VITEK 2 METHOD Susceptible Comment:Deduced ceph alexin susceptible result applies only to??treatment of uncomplicated urinary tract infections. Escherichia coli Cefepime VITEK 2 METHOD <=0.12 ug/ml: Susceptible Escherichia coli Ceftriaxone VITEK 2 METHOD <=0.25 ug/ml: Susceptible Escherichia coli Ciprofloxacin VITEK 2 METHOD <=0.06 ug/ml: Susceptible Escherichia coli Gentamicin VITEK 2 METHOD <=1.0 ug/ml: Susceptible Escherichia coli Levofloxacin VITEK 2 METHOD <=0.12 ug/ml: Susceptible Escherichia coli Nitrofurantoin VITEK 2 METHOD <=16.0 ug/ml: Susceptible Escherichia coli Piperacillin/Tazobactam VITEK 2 METHO D <=4.0 ug/ml: Susceptible Escherichia coli Trimethoprim/Sulfa VITEK 2 METHOD <=20.0 ug/ml: Susceptible Earle Cade MD MICROBIOLOGY - [facility] ORDERABLES [facility] [place] [address] * (ABNORMAL) Urinalysis Dipstick (02/02/2024 5:34 PM EDT) [facility] Glucose, Urine Dipstick Negative Negative 02/02/2024 5:50 PM EDT [facility] Protein, Urine Dipstick Negative Negative 02/02/2024 5:50 PM EDT [facility] Bilirubin, Urine Dipstick Negative Negative 02/02/2024 5:50 PM EDT [facility] Comment:Clinical correlation required for positive Urine Bilirubin results as false positive may occur with some drugs and drug related products. If a false positive is suspected a serum total bilirubin should be considered if clinically indicated. Urobilinogen, Urine Dipstick Normal Normal, 0.2 mg/dL, 1.0 mg/dL 02/02/2024 5:50 PM EDT [facility] pH, Urine (dipstick) 7.0 5.0 - 8.0 02/02/2024 5:50 PM EDT [facility] Blood, Urine Dipstick Negative Negative 02/02/2024 5:50 PM EDT [facility] Ketone, Urine Dipstick Negative Negative 02/02/2024 5:50 PM EDT [facility] Nitrite, Urine Dipstick Negative Negative 02/02/2024 5:50 PM EDT [facility] Leukocytes, Urine Dipstick Trace(A) Negative 02/02/2024 5:50 PM EDT [facility] Specific Bonnyman Urine Automated 1.012 1.005 - 1.030 02/02/2024 5:50 PM EDT [facility] Appearance, Urine Dipstick Clear Clear 02/02/2024 5:50 PM EDT [facility] Color, Urine Dipstick Yellow Yellow, Dark Yellow 02/02/2024 5:50 PM EDT [facility] Urine URINE SPECIMEN OBTAINED BY CLEAN CATCH PROCEDURE / Unknown Non Blood Collection / Unknown 02/02/2024 5:34 PM EDT 02/02/2024 5:34 PM EDT Earle Cade MD URINE ORDERABLES Performing Organization Address City/State/[facility] Co de Phone Number [facility] [place] [address] documented in this encounter Visit Diagnoses Diagnosis Dysuria documented in this encounter Care Teams Senior Dynamics Crm Developer Relationship Specialty Start Date End Date Edilma Cornejo MD [facility] [place] [address] PCP - General 12/05/22 documented as of this encounter
--- OUTSIDE RECORDS SUMMARY | 2024-07-29 00:22 | XMS_ITS | Encounter Summary ---
Author Organization [facility] [place] [address] Care Team Providers Care Tmd Teacher Name Role Phone Edilma Cornejo MD Primary Care Provider [phone] Encounter Details Date Type Department Care Team (Latest Contact Info) Description 04/15/2024 3:30 PM EDT Laboratory Appointment Lab [address] [address] care, antepartum Social History Tobacco Use Types [...] from your doctor or pharmacy? Never 04/15/2024 [facility] Utilities Answer Date Recorded In the [...] any time in the past 12 m [facility], were you homeless or [...] Info) Description 08/08/2024 9:00 AM EST Appointment [address] [phone] Umu Saucedo RN 08/15/2024 10:45 AM EST TH Visit (TeleHealth) Obstetrics [place] [phone] Dara Kelley MD [facility] OBSTETRICS [place] [address] 11/25/2024 [place] [phone] Dara Gonzalez MD [facility] DR OBSTETRICS [place] [address] 07/12/2025 1:40 PM EST Office [place] [phone] Bina Agrawal OD [facility] [place] [address] documented as of this encounter Procedures Procedure Name Priority Date/Time Associated Diagnosis Comments ABORH RECHECK (PATIENT HISTORY FOUND) Routine 04/15/2024 3:41 PM EDT care, antepartum TSH CASCADE Routine 04/15/2024 3:41 PM EDT care, antepartum SCREEN Routine 04/15/2024 3:41 PM EDT care, antepartum HEPATITIS C ANTIBODY Routine 04/15/2024 3:41 PM EDT care, antepartum SYPHILIS ANTIBODY SCREEN WITH REFLEX Routine 04/15/2024 3:41 PM EDT care, antepartum RUBELLA ANTIBODY, IGG Routine 04/15/2024 3:41 PM EDT care, antepartum HIV SCREEN, 4TH GENERATION ([facility]/CGP/APD/NL)PE RFORMABLE Routine 04/15/2024 3:41 PM EDT care, antepartum HEPATITIS B SURFACE ANTIGEN Routine 04/15/2024 3:41 PM EDT care, antepartum CBC (WITH DIFF) Routine 04/15/2024 3:41 PM EDT care, antepartum TYPE AND SCREEN ([facility]/CGP/MELANY) Routine 04/15/2024 3:41 PM EDT care, antepartum HEMOGLOBIN A1C Routine 04/15/2024 3:41 PM EDT care, antepartum documented in this encounter Results * ABORH RECHECK (PATIENT HISTORY FOUND) (04/15/2024 3:41 PM EDT) Pathologist [facility] ABORH Recheck Progress Complete 04/15/2024 6:01 PM EDT [facility] Blood VENOUS BLOOD SPECIMEN / Unknown Venipuncture / Unknown 04/15/2024 3:41 PM EDT 04/15/2024 3:42 PM EDT Dara Gonzalez MD BLOOD BANK LAB ORDER ANANTH [facility] [place] [address] * HIV Screen, 4th Generation ([facility]/CGP/APD/NLH) (04/15/2024 3:41 PM EDT) Pathologist [facility] HIV Ab/Ag Screen Negative Negative 04/15/2024 4:44 PM EDT [facility] Comment:Low Risk of HIV Infe ction. Blood VENOUS BLOOD SPECIMEN / Unknown Venipuncture / Unknown 04/15/2024 3:41 PM EDT 04/15/2024 3:42 PM EDT Narrative [facility] - 04/15/2024 4:44 PM EDT This [...] testing performed. Dara Gonzalez MD CHEMISTRY ORDERABLES Performing Organization Address City/[facility]/ZIP Co de Phone Number [facility] [place] [address] * Syphilis Screening Antibody with reflex RPR (04/15/2024 3:41 PM EDT) Pathologist [facility] Syphilis IgG/IgM Negative Negative 04/15/2024 4:44 PM EDT [facility] Blood VENOUS BLOOD SPECIMEN / Unknown Venipuncture / Unknown 04/15/2024 3:41 PM EDT 04/15/2024 3:42 PM EDT Dara Gonzalez MD CHEMISTRY ORDERABLES Performing Organization Address City/[facility]/ZIP Co de Phone Number [facility] [place] [address] * (ABNORMAL) CBC (with Diff) (04/15/2024 3:41 PM EDT) [facility] White Blood Cell 11.86(H) 4.00 - 9.50 x10(3)/mc L 04/15/2024 4:04 PM EDT [facility] Red Blood Cell 4.98 4.00 - 5.21 x10(6)/mc L 04/15/2024 4:04 PM EDT [facility] Hemoglobin 14.5 11.7 - 15.5 g/dL 04/15/2024 4:04 PM [facility] Hematocrit 44.3 35.7 - 45.8 % 04/15/2024 4:04 PM [facility] Mean Cell Volume 89.0 82.6 - 94.4 fL 04/15/2024 4:04 PM [facility] Mean Cell Hemoglobin 29.1 27.1 - 32.0 pg 04/15/2024 4:04 PM [facility] Mean Cell Hemoglobin Concentration 32.7 31.7 - 35.0 g/dL 04/15/2024 4:04 PM [facility] Platelet 290 145 - 357 x10(3)/mc L 04/15/2024 4:04 PM [facility] Mean Platelet Volume 10.6 7.6 - 12.9 fL 04/15/2024 4:04 PM [facility] RDW Standard Deviation 40.6 37.0 - 46.0 fL 04/15/2024 4:04 PM [facility] RDW coefficient of variation 12.3 11.5 - 14.1 % 04/15/2024 4:04 PM [facility] NRBC% auto 0.0 % 04/15/2024 4:04 PM [facility] NRBC Absolute <0.01 <0.01 x10(3)/mc L 04/15/2024 4:04 PM [facility] Neutrophil % 75.6 % 04/15/2024 4:04 PM [facility] Neutrophil Absolute (ANC) - Automated 8.96(H) 1.70 - 6.10 x10(3)/mc L 04/15/2024 4:04 PM [facility] Lymph % 15.7 % 04/15/2024 4:04 PM [facility] Lymph Absolute 1.86 0.90 - 3.20 x10(3)/mc L 04/15/2024 4:04 PM EDT [facility] Monocyte % 7.6 % 04/15/2024 4:04 PM EDT [facility] Monocyte Absolute 0.90 0.30 - 0.90 x10(3)/mc L 04/15/2024 4:04 PM EDT [facility] Eos % 0.3 % 04/15/2024 4:04 PM EDT [facility] Eos Absolute 0.04 0.00 - 0.40 x10(3)/mc L 04/15/2024 4:04 PM EDT [facility] Basophil % 0.4 % 04/15/2024 4:04 PM EDT [facility] Baso Absolute 0.05 0.00 - 0.10 x10(3)/mc L 04/15/2024 4:04 PM EDT [facility] Immature Gran % 0.4 % 4:04 PM EDT [facility] Immature Gran Absolute 0.05(H) 0.00 - 0.04 x10(3)/mc L 04/15/2024 4:04 PM EDT [facility] Blood VENOUS BLOOD SPECIMEN / Unknown Venipuncture / Unknown 04/15/2024 3:41 PM EDT 04/15/2024 3:42 PM EDT Dara Gonzalez MD HEMATOLOGY ORDERABLE S [facility] [place] [address] * Rubella Antibody, IgG (04/15/2024 3:41 PM EDT) Rubella Antibody IgG Positive Positive 04/15/2024 4:44 PM EDT [facility] Comment:Results >or= 10.0 IU /mL are considered to be an indicator of positive immune status. Blood VENOUS BLOOD SPECIMEN / Unknown Venipuncture / Unknown 04/15/2024 3:41 PM EDT 04/15/2024 3:42 PM EDT Dara Gonzalez MD CHEMISTRY ORDERABLES [facility] [place] [address] * Hepatitis B Surface Antigen (04/15/2024 3:41 PM EDT) Hepatitis B Surface Antigen Negative Negative 04/15/2024 4:44 PM EDT [facility] Blood VENOUS BLOOD SPECIMEN / Unknown Venipuncture / Unknown 04/15/2024 3:41 PM EDT 04/15/2024 3:42 PM EDT Dara Gonzalez MD CHEMISTRY ORDERABLES Performing Organization Address City/[facility]/ZIP Co de Phone Number [facility] [address] * Type and screen ([facility]/FREDY/MELANY) (04/15/2024 3:41 PM EDT) ABORH Type A POSITIVE 04/15/2024 5:46 PM EDT [facility] PATIENT HISTORY Found 04/15/2024 5:46 PM EDT [facility] Expires at [id number] on: 04/15/2024 04/15/2024 5:46 PM EDT [facility] ANTIBODY SCREEN AUTOMATED Negative 04/15/2024 5:46 PM EDT [facility] T&S only valid at [facility] 04/15/2024 5:46 PM EDT [facility] Blood VENOUS BLOOD SPECIMEN / Unknown Venipuncture / Unknown 04/15/2024 3:41 PM EDT 04/15/2024 3:42 PM EDT Narrative [facility] - 04/15/2024 5:46 PM EDT This Type and Screen result is only valid at the [facility] Dara Gonzalez MD BLOOD BANK LAB ORDER ANANTH [facility] [place] [address] * Hepatitis C Antibody (04/15/2024 3:41 PM EDT) Pathologist [facility] Hepatitis C Antibody Negative Negative 04/15/2024 4:44 PM EDT [facility] Blood VENOUS BLOOD SPECIMEN / Unknown Venipuncture / Unknown 04/15/2024 3:41 PM EDT 04/15/2024 3:42 PM EDT Dara Gonzalez MD CHEMISTRY ORDERABLES Performing Organization Address City/[facility] Co de Phone Number [facility] [address] * TSH [place] (04/15/2024 3:41 PM EDT) [facility] Thyroid Stimulating Hormone 1.87 0.27 - 4.20 mcIU/mL 04/15/2024 4:31 PM EDT [facility] Comment: Reference Interval (mcIU/mL): ?? Females: ? First Trimester: 0.23-3.88 ? Second Trimester: 0.22-3.90 ? Third Trimester: 0.44-4.66 Blood VENOUS BLOOD SPECIMEN / Unknown Venipuncture / Unknown 04/15/2024 3:41 PM EDT 04/15/2024 3:42 PM EDT Dara Gonzalez MD CHEMISTRY ORDERABLES Performing Organization Address [facility] Co de Phone Number [facility] [place] [address] * Hemoglobin A1c (04/15/2024 3:41 PM EDT) Pathologist [facility] Hemoglobin A1c 5.0 4.3 - 5.6 % 04/15/2024 4:12 PM EDT [facility] Comment: Per ADA guidelines, without clear symptoms of hyperglycemia or a random plasma glucose >199 mg/dL, a single abnormal A1c measurement cannot be used to diagnose diabetes mellitus. The diagnosis must be confirmed by either 1) a concurrent abnormal fasting plasma glucose or impaired response to oral glucose tolerance testing, or 2) an additional abnormal A1c, impaired fasting plasma glucose, or impaired response to oral glucose tolerance testing on a different day. A1c results obtained on patients with altered red blood cell turnover may not be [employer] of glycemic control. Reference Interval: 4.3 - 5.6% 5.7 - 6.4%: Consistent with prediabetes >=6.5%: Consistent with diagnosis of diabetes mellitus Estimated Average Glucose 97 mg/dL 04/15/2024 4:12 PM EDT [facility] Blood VENOUS BLOOD SPECIMEN / Unknown Venipuncture / Unknown 04/15/2024 3:41 PM EDT 04/15/2024 3:42 PM EDT Dara Gonzalez MD CHEMISTRY ORDERABLES [facility] [place] [address] documented in this encounter Visit Diagnoses Diagnosis care, antepartum documented in this encounter Care Teams Tmd Teacher Relationship Specialty Start Date End Date Edilma Cornejo MD [facility] [place] [address] PCP - General 12/05/22 documented as of this encounter
--- OUTSIDE RECORDS SUMMARY | 2024-07-29 00:22 | XMS_ITS | Encounter Summary ---
Author Organization [facility] Address [facility] [place] [address] Care Team Providers Care Psychiatric Specialist Name Role Phone Edilma Cornejo MD Primary Care Provider [phone] Reason for Referral * Consultation (Routine) - Closed Specialty Diagnoses / Procedures Referred By Contac t Referred To Contact Obstetrics and Gynecology Diagnoses care, antepartum GC expanded carrier screening Elida Ku MD [facility] DR OBSTETRICS & [place] [address] [facility] Graduate Fellow [address] [place] [address] Referral ID Status Reason Start Date Expiration Date V isits Requested Visits Authorized [id number] Closed Consult, Test & Treat 04/21/2024 04/21/2025 1 1 Encounter Details Date Type Department Care Team (Late st Contact Info) Description 04/21/2024 Orders Only Obstetrics [place] [address] Elida Ku MD [facility] OBSTETRICS & [place] [address] care, antepartum; Chlamydia infection affecting in first trimester Social History Tobacco Use [...] your doctor or pharmacy? Never 04/15/2024 [facility] Utilities Answer Date Recorded In the past 12 months has e [employer], gas, oil, or water [employer] threatened to shut off services in your [...] time in the past 12 m [facility], were you homeless or living in a custodial (including now)? No 04/15/2024 [facility] IPV Inpatient [...] Info) Description 08/08/2024 9:00 AM EST Appointment [address] [phone] Umu Saucedo, RN 08/15/2024 10:45 AM EST TH Visit (TeleHealth) Obstetrics [place] [address] Dara Kelley MD [facility] OBSTETRICS [place] [address] 11/25/2024 Hospital [place] [phone] Dara Gonzalez MD [facility] OBSTETRICS [place] [address] 07/12/2025 1:40 PM EST Office [place] [address] Bina Agrawal, JONELLE [facility] [place] [address] Scheduled Referrals Name Type Priority Associated Diagnoses Order Schedule Referral to OB Genetic Counseling Outpatient Referral Routine care, antepartum Ordered: 04/21/2024 documented as of this encounter Visit Diagnoses Diagnosis care, antepartum Chlamydia infection affecting in first trimester documented in this encounter Care Teams Psychiatric Specialist Relationship Specialty Start Date End Date Edilma Cornejo MD [facility] [place] [address] PCP - General 12/05/22 documented as of this encounter
--- OUTSIDE RECORDS SUMMARY | 2024-07-29 00:22 | XMS_ITS | Encounter Summary ---
Author Organization [facility] [place] [address] Care Team Providers Care Chief Maintenance Supervisor Name Role Phone Edilma Cornejo MD Primary Care Provider [phone] Reason for Visit * Reason Comments Hematuria Encounter Details Date Type Department Care Team (Late st Contact Info) Description 12/26/2023 12:41 PM EDT - 12/26/2023 1:34 PM [place]T [place] [address] Urinary tract infection with hematuria, site unspecified Discharge Disposition: Home Social History Tobacco Use [...] Sign Reading Time Taken Comments Blood Pressure 123/73 12/26/2023 12:39 PM EDT Pulse 71 12/26/2023 12:39 PM EDT Temperature 36.4 ??C (97.5 ??F) 12/26/2023 12:39 PM E DT Respiratory Rate 18 12/26/2023 12:39 PM EDT Oxygen Saturation 100% 12/26/2023 12:39 PM EDT Inhaled Oxygen Concentration - - Weight 54.4 kg (120 lb) 12/26/2023 12:39 PM EDT Height 149.9 cm (4' 11) 12/26/2023 12:39 PM EDT Body Mass Index 24.24 12/26/2023 12:39 PM EDT documented in this encounter Discharge Instructions * Discharge Instructions* Lazaro Scott PA - 12/26/2023 1:28 PM EDT -Your urine shows evidence of urinary tract infection today - Your test was negative - Take the Keflex 4 times daily for 5 days for your UTI - Push liquids about the stay well-hydrated - Take Tylenol or ibuprofen for pain as needed - Follow-up with your PCP if symptoms persist - Return to the ED for increased pain, fevers, trouble urinating, or any concerns * Attachments The following attachments cannot be sent through Care Everywhere. * UTI (Urinary Tract Infection): Female (Chilean) documented in this encounter Medications at Time of Discharge Medication Sig Dispensed Refills Start Date End Date albuteroL 90 mcg/actuation HFA Aerosol Inhaler Inhale 2 puffs into the lungs every 4 hours as needed for Wheezing. Use with spacer 1 each 5 05/29/2023 cephALEXin (Keflex) 500 mg capsule Take 1 capsule by mouth 4 times daily for 5 days. 20 capsule 12/26/2023 12/31/2023 ibuprofen (Advil) 600 mg tablet 09/10/2022 04/15/2024 documented as of this encounter ED Notes * Lazaro Scott PA - 12/26/2023 12:52 PM EDT ED Provider Note HPI: Ely Mahmood is a 18 y.o. female with a history of depression, borderline hypothyroidism, mild hearing loss, prior ear tubes and adenoidectomy, asthma. She comes into the ED complaining of some burning with urination and hematuria. Started today. She had no fevers or chills. No significant abdominal pains. Has had a urinary tract infection in the past but not recently. Because of the urinary symptoms she came in for evaluation History is obtained from the patient She uses a vaporizer for nicotine occasionally, drinks alcohol occasionally, denies any drugs, is accompanied by her boyfriend in the ED ROS as per HPI Vitals: ED Triage Vitals [12/26/23 1239] BP: 123/73 Heart Rate: 71 Resp: 18 Temp: 36.4 ??C (97.5 ??F) Temp src: Temporal SpO2: 100 % O2 Device: RA O2 Flow Rate (L/min): n/a Physical Exam Vitals and nursing note reviewed. Constitutional: General: She is not in acute distress. Appearance: Normal appearance. She is not ill-appearing. HENT: Head: Normocephalic and atraumatic. Mouth/Throat: Mouth: Mucous membranes are moist. Pharynx: Oropharynx is clear. Cardiovascular: Heart sounds: No friction rub. Pulmonary: Effort: Pulmonary effort is normal. No respiratory distress. Chest: Chest wall: No tenderness. Abdominal: General: Abdomen is flat. There is no distension. Palpations: Abdomen is soft. Tenderness: There is no abdominal tenderness. There is no right CVA tenderness or left CVA tenderness. Musculoskeletal: General: Normal range of motion. Cervical back: Normal range of motion and neck supple. Skin: General: Skin is warm and dry. Neurological: General: No focal deficit present. Mental Status: She is alert and oriented to person, place, and time. Motor: No weakness. Psychiatric: Mood and Affect: Mood normal. ED Course: I have reviewed labs and imaging, images and available reports, No orders to display ED Course as of 12/26/23 1327 Sat Dec 26, 2023 1304 POC Urine HCG: Negative 1326 Color UA(!): Brown 1326 Appearance UA(!): Cloudy 1326 Leukocytes UA(!): Large 1326 Nitrite UA: Negative 1326 Blood UA(!): Large 1326 RBC UA(!): >100 1326 WBC UA(!): >100 1326 Bacteria UA(!): Occasional Procedures Assessment and Plan: 18 y.o. female with some complaints of burning with urination and a little bit of hematuria this morning. Does not have any abdominal pains or fevers. Has a urinary tract infection in the past but not recently. Here in the ED she is afebrile hemodynamically stable. Abdomen is completely benign. No tenderness in the lower abdomen or CVA region. Will get a urinalysis and a urine test to reevaluate following this 1:25 PM-patient's urine shows evidence of significant urinary tract infection. test is negative. Will place her on Keflex for 5 days. Recommend she push liquids by mouth to stay well-hydrated. Should follow-up with her PCP if symptoms persist or return the emergency department for any worsening symptoms Final diagnosis #1 urinary tract infection Disposition Home stable Lazaro Scott PA 12/26/23 1328 documented in this encounter Plan of Treatment Upcoming Encounters Date Type Department Care Team (Late st Contact Info) Description 08/08/2024 9:00 AM EST Appointment [address] [address] Umu Saucedo RN 08/15/2024 10:45 AM EST TH Visit (TeleHealth) Obstetrics [place] [address] Dara Kelley MD [facility] OBSTETRICS [place] [address] 11/25/2024 Hospital [place] [address] Dara Gonzalez MD [facility] OBSTETRICS [place] [address] 07/12/2025 1:40 PM EST Office [place] [address] Bina Agrawal OD [facility] [place] [address] documented as of this encounter Procedures Procedure Name Priority Date/Time Associated Diagnosis Comments POCT URINE STAT 12/26/2023 12:54 PM EDT URINALYSIS MICROSCOPIC EXAM STAT 12/26/2023 12:50 PM EDT URINALYSIS WITH REFLEX CULTURE STAT 12/26/2023 12:50 PM EDT URINE CULTURE STAT 12/26/2023 12:50 PM EDT documented in this encounter Results * POCT urine (12/26/2023 12:54 PM EDT) POC Urine HCG Negative Negative - Negative POC Control Internal Controls Acceptable Mark Goodrich MD POINT OF CARE TEST O RDERABLES * (ABNORMAL) Urine culture (12/26/2023 12:50 PM EDT) Urine Culture Greater than 100,000 cfu/ml Staphylococcus saprophyticus Routine susceptibility testing of S. saprophyticus in urine is not advised, infections respond to concentrations achieved in urine of commonly used antimicrobial agents. (A) [facility] Organism Staphylococcus saprophyticus(A) [facility] Clean Catch Urine 12/26/2023 12:50 PM EDT 12/26/2023 3:08 PM EDT Narrative Resulting Agency Comment Spec In Lab Raphael Gomez III, MD MICROBIOLOGY - GEN ERAL ORDERABLES [facility] [place] [address] * (ABNORMAL) Urinalysis Microscopic Exam (12/26/2023 12:50 PM EDT) RBC, Urine >100(H) 0 - 4 /HPF [facility] Comment:Interpret with cauti on, manual microscopic results are from an unspun specimen WBC, Urine >100(H) 0 - 5 /HPF [facility] Comment:Interpret with cauti on, manual microscopic results are from an unspun specimen Bacteria, Urine Occasiona l(A) None /HPF [facility] Comment:Interpret with cauti on, manual microscopic results are from an unspun specimen Squamous Epithelial Cells Raw Data, Urine 2 <=4 /HPF [facility] Comment:Interpret with cauti on, manual microscopic results are from an unspun specimen Clean Catch Urine 12/26/2023 12:50 PM EDT 12/26/2023 12:54 PM EDT Narrative Resulting Agency Comment Spec In Lab Raphael Gomez III, MD URINE ORDERABLES [facility] [place] [address] * (ABNORMAL) Urinalysis with reflex Culture (12/26/2023 12:50 PM EDT) Glucose, Urine Dipstick Negative Negative mg/dL [facility] Protein, Urine Dipstick 100(A) Negative mg/dL [facility] Bilirubin, Urine Dipstick Small(A) Negative mg/dL [facility] Comment: Clinical correlation required for positive Urine Bilirubin results as false positive may occur with some drugs and drug related products. If a false positive is suspected a serum total bilirubin should be considered if clinically indicated. Urobilinogen, Urine Dipstick Normal Normal mg/dL [facility] pH, Urn (dipstick) 6.5 5.0 - 8.0 [facility] Blood, Urine Dipstick Large(A) Negative mg/dL [facility] Ketone, Urine Dipstick Trace(A) Negative mg/dL [facility] Nitrite, Urine Dipstick Negative Negative [facility] Leukocytes, Urine Dipstick Large(A) Negative [facility] Appearance, Urine Dipstick Cloudy(A) Clear [facility] Specific [place] Urine Automated 1.025 1.005 - 1.030 [facility] Color, Urine Dipstick Brown(A) [facility] Reflex to Culture Yes [facility] Clean Catch Urine 12/26/2023 12:50 PM EDT 12/26/2023 12:54 PM EDT Narrative Resulting Agency Comment Spec In Lab Raphael Gomez III, MD URINE ORDERABLES Performing Organization Address City/State/[facility] Co de Phone Number [facility] [place] [address] documented in this encounter Visit Diagnoses Diagnosis Urinary tract infection with hematuria, site unspecified documented in this encounter Care Teams Chief Maintenance Supervisor Relationship Specialty Start Date End Date Edilma Cornejo MD [facility] [place] [address] PCP - General 12/05/22 documented as of this encounter
--- OUTSIDE RECORDS SUMMARY | 2024-07-29 00:22 | XMS_ITS | Encounter Summary ---
Author Organization [facility] Address [facility] [place] [address] Care Team Providers Care Early Childhood Coordinator Name Role Phone Edilma Cornejo MD Primary Care Provider [phone] Encounter Details Date Type Department Care Team (Late st Contact Info) Description 04/25/2024 Notes Only [place]stetrics [place] [phone] Isis Patel Social History Tobacco Use Types Packs/Day Years [...] from your doctor or pharmacy? Never 04/15/2024 [facility] Utilities Answer Date Recorded In the past 12 months has e [employer], gas, oil, or water [employer] threatened to shut off services in your [...] any time in the past 12 m [facility], were you homeless or living in a fci (including now)? No 04/15/2024 IPV Inpatient Questions [...] as of this encounter Progress Notes * Isis Patel - 04/25/2024 2:29 PM EST [x]Clinic Visit []Home Visit []Community/[facility] Visit []Phone Communication The Following resources were discussed: [x]Housing []Food []Insurance []Baby items []Referrals []Transportation []Other (please specify) The following actions will be taken: [x]Follow up [x]Application assistance []Referrals []Appointment navigation []Meet at next appointment Items dispensed to patient: []Gas card () []Phone () []Phone card () []Diapers []Baby items []Food []Safe sleep []Other (Please specify) Roseanna is looking to find an affordable apartment to share with her partner. We did apply for [employer]Will send links for housing near [facility]. Time spent with patient 30 documented in this encounter Plan of Treatment Upcoming Encounters Date Type Department Care Team (Late st Contact Info) Description 08/08/2024 9:00 AM EST Appointment [address] [address] Umu Saucedo, RN 08/15/2024 10:45 AM EST TH Visit (TeleHealth) [place]stetrics [place] [address] Dara Kelley MD [facility] OBSTETRICS [place] [address] 11/25/2024 [place] [address] Dara Gonzalez MD [facility] OBSTETRICS [place] [address] 07/12/2025 1:40 PM EST Office Visit Ophthalmology at [facility] [place] [address] Bina Agrawal, OD [facility] [place] [address] documented as of this encounter Visit Diagnoses Not on filedocumented in this encounter Care Teams Early Childhood Coordinator Relationship Specialty Start Date End Date Edilma Cornejo MD [facility] [place] [address] PCP - General 12/05/22 documented as of this encounter
--- OUTSIDE RECORDS SUMMARY | 2024-07-29 00:22 | XMS_ITS | Encounter Summary ---
Author Organization [facility] Address [facility] [place] [address] Care Team Providers Care Dial Refinisher Name Role Phone Edilma Cornejo MD Primary Care Provider [phone] Encounter Details Date Type Department Care Team (Late st Contact Info) Description 04/07/2024 Notes Only Obstetrics [place] [address] Alfreda Nagel MD [facility] DR OBSTETRICS & [place] [address] Social History Tobacco Use Types Packs/Day Years Used Date Smoking Tobacco: Never Passive Smoke Exposure: Yes Smokeless Tobacco: Never Comments:Patient vapes on oc casion (rechargeable cartridge) Alcohol Use Standard Drinks/Week Comments No 0 (1 standard drink = 0.6 oz pur e alcohol) [facility] Inpatient Questions Answer Date Recorded Does Anyone [...] as of this encounter Progress Notes * Alfreda Nagel MD - 04/07/2024 4:42 PM EDT [facility] [place] [place] Protocol ID: Ely Mahmood is a 19 y.o. female on PUL list for vaginal spotting with early .LMP 02/19/2024, approx 6w6d bHCG 04/01: 19853 bHCG 04/04: 23,374 Had appropriate rise, bHCG above discriminatory zone. Communicated results with patient. Has new OBscheduled 04/15- would recommend POCUS TVUS to confirm IUP. Then will remove from PUL list Alfreda Nagel MD, PGY-4 Obstetrics and Gynecology 04/07/2024 documented in this encounter Plan of Treatment Upcoming Encounters Date Type Department Care Team (Late st Contact Info) Description 08/08/2024 9:00 AM EST Appointment [address] [phone] Umu Saucedo, RN 08/15/2024 10:45 AM EST TH Visit (TeleHealth) [place]stetrics [place] [address] Dara Kelley MD [facility] OBSTETRICS [place] [address] 11/25/2024 [place] [address] Dara Gonzalez MD [facility] OBSTETRICS [place] [address] 07/12/2025 1:40 PM EST Office [place] [address] Bina Agrawal OD [facility] [place] [address] documented as of this encounter Visit Diagnoses Not on filedocumented in this encounter Care Teams Dial Refinisher Relationship Specialty Start Date End Date Edilma Cornejo MD [facility] [place] [address] PCP - General 12/05/22 documented as of this encounter
--- OUTSIDE RECORDS SUMMARY | 2024-07-29 00:22 | XMS_ITS | Encounter Summary ---
Author Organization [facility] Address [facility] [address] Care Team Providers Care Gospel Singer Name Role Phone Edilma Cornejo MD Primary Care Provider [phone] Reason for Visit * Reason Comments Genetic Screening * Consultation (Routine) - Closed Specialty Diagnoses / Procedures Referred By Contac t Referred To Contact Obstetrics and Gynecology Diagnoses care, antepartum GC expanded carrier screening Elida Ku MD [facility] DR OBSTETRICS & [place] [address] [facility] [employer] [address] [place] [address] Referral ID Status Reason Start Date Expiration Date V isits Requested Visits Authorized [id number] Closed Consult, Test & Treat 04/21/2024 04/21/2025 1 1 Encounter Details Date Type Department Care Team (Late st Contact Info) Description 04/25/2024 9:00 AM EST Office Visit Obstetrics [place] [address] Gela Arce, [facility] [place] OBSTETRICS & [place] [address] Encounter of female for testing for genetic disease carrier status for procreative management Social History Tobacco Use Types Packs/Day Years [...] doctor or pharmacy? Never 04/15/2024 [facility] Utilities Answer Date Recorded In the past 12 months has e [employer], gas, oil, or water [employer] threatened to shut off services in your [...] any time in the past 12 m [place], were you homeless or living in a [...] as of this encounter Progress Notes * Gela Arce, [facility] - 04/25/2024 9:00 AM ESTSummary: Reproductive genetic counseling Reproductive Genetic Counseling Note Ely Mahmood (she/her/hers) is a 19 y.o. female currently at 9w3d gestation. I met with Ely for a 22 minute office visit in [place], [place]. She was accompanied by her partner, Roland Carr. Referring Provider: Elida Ku MD [facility] OBSTETRICS & [place] [address] Indication for genetic counseling: Carrier screening Family History: A family history was recorded and was remarkable for Ely's paternal half sister amie carrier of cystic fibrosis, identified during routine screening, pathogenic variant unknown to Ely. Ely reported her cousin has what was described as an isolated cleft lip. The chance ofrecurrence to the fetus is unlikely to be increased due to the degree of relationship. The family history was otherwise unremarkable for intellectual disability, congenital anomalies, recurrent loss, or known genetic conditions that could have implications for this . Ely is Austrian and white, and Roland is Serbian. Consanguinity was denied. OB History Para Term AB Living 2 0 0 0 1 0 SAB IAB Ectopic Multiple Live Births 1 0 0 0 0 # Outcome Date GA Lbr Greg/2nd Weight Sex Type Anes PTL Lv 2 Current 1 SAB Patient's last menstrual period was 02/19/2024. Estimated Date of Delivery: 11/25/24 based on LMP Genetic Screening Test Result Panorama screen Today Thalassemia screen MCV within normal limits (89 fL) Assessment Carrier screening: Since Ely has a half-sibling who is a CF carrier, the odds Ely could be a CF carrier are 1 in 4 (25%) - higher than the background population carrier incidence of 1 in 25 (4%). Autosomal recessive inheritance and the symptoms of CF were reviewed. Factoring in Roland's general population carrier odds of 1 in 25, reproductive risk is 1 in 400 (0.25%). Ely and Roland were offered concurrent CF carrier screening at [facility], which has a higher detection rate than the targeted panel. Ely was also offered ACOG recommended spinal muscular atrophy carrier screening, as well as expanded carrier screening. Following a brief discussion of the two expanded carrier screening panels of 113 and 609 genes and the options of diagnosis or testing when both members of a couple are carriers of the same disorder, Ely quickly declined expanded screening. The couple also decided to delay CF carrier screening for Roland, and proceed if Ely is identified as a carrier. They were informed of the 2 - 3 week timing of results. Roland provided written consent in the office today to prepare for the possibility of screening. Plan: CF and SMA carrier screening at [facility] for Ely via a blood sample collected today. Ely's written consent can be found in Media. Results are expected within 2-3 weeks. Ely will be informed through myD-H. Reflex to partner, Roland Carr ([id number]). Roland provided consent today, but no orders placed. Prefers saliva. documented in this encounter Plan of Treatment Upcoming Encounters Date Type Department Care Team (Late Contact Info) Description 08/08/2024 9:00 AM EST Appointment [address] [place] [phone] Umu Saucedo, RN 08/15/2024 10:45 AM EST TH Visit (TeleHealth) Obstetrics [place] [phone] [facility] [address] OBSTETRICS AND [place] [address] 11/25/2024 Hospital [place] [phone] [facility] OBSTETRICS AND [place] [address] 07/12/2025 1:40 PM EST Office [place] [phone] [facility] [place] [address] documented as of this encounter Results * [facility]ORIZON [employer] (04/25/2024 11:17 AM EST) [facility] Panel Name (TRAVIS) Custom 05/11/2024 8:26 AM EST REF [facility] Report Summary (TRAVIS) Negative 05/11/2024 8:26 AM EST REF [facility] Comment: Negative for 2 out of 2 diseases. Diseases Screened: Cystic Fibrosis(CFTR) : NEGATIVE Spinal Muscular Atrophy(SMN1) : NEGATIVE Footnotes (TRAVIS) See Notes 8:26 AM EST REF [facility] Comment: Test performed by [employer] : [address] [place] [id number] CLIA ID #[id number] CLIA [employer] Prescription Clerk: Efe Loomis, Ph.D., [facility] Please see the attached PDF for information regarding Conditions, Methodology, Disclaimers, and further information. Blood VENOUS BLOOD SPECIMEN / Unknown Venipuncture / Unknown 04/25/2024 11:17 AM EST 04/25/2024 11:17 AM EST Tori Perry MD LAB SEND OUT ORDERA BLES REF [facility] [address] documented in this encounter Visit Diagnoses Diagnosis Encounter of female for testing for genetic disease carrier status for procreative management Testing of female for genetic disease carrier status documented in this encounter Care Teams Gospel Singer Relationship Specialty Start Date End Date Edilma Cornejo MD [facility] [place] [address] PCP - General 12/05/22 documented as of this encounter
--- OUTSIDE RECORDS SUMMARY | 2024-07-29 00:22 | XMS_ITS | Encounter Summary ---
Author Organization [facility] Address [facility] [place] [address] Care Team Providers Care Optical Designer Name Role Phone Edilma Cornejo MD Primary Care Provider [phone] Encounter Details Date Type Department Care Team (Latest Contact Info) Description 12/25/2023 5:00 PM EDT - 12/25/2023 11:59 PM EDT Hospital Encounter XRay at [address] [place] [address] Bessie Macias MD [facility] [place] [address] Acute midline low back pain without sciatica Discharge Disposition: Home Social History Tobacco Use Types Packs/Day Years Used Date Smoking Tobacco: Never Passive Smoke Exposure: Yes Smokeless Tobacco: Never Comments:Patient vapes on oc casion (rechargeable cartridge) Alcohol Use Standard Drinks/Week Comments No 0 (1 standard drink = 0.6 oz pur e alcohol) [facility] Inpatient Questions Answer Date Recorded Does Anyone [...] Use with spacer 1 each 5 05/29/2023 ibuprofen (Advil) 600 mg tablet 09/10/2022 04/15/2024 documented as of this encounter Plan of Treatment Upcoming Encounters Date Type Department Care Team (Late st Contact Info) Description 08/08/2024 9:00 AM EST Appointment [address] [phone] Umu Saucedo RN 08/15/2024 10:45 AM EST TH Visit (TeleHealth) Obstetrics and Gynecology at [place] [phone] Dara Kelley MD [facility] [place] [address] 11/25/2024 [place] [address] Dara Gonzalez MD [facility] [place]ST[place] [address] 07/12/2025 1:40 PM EST Office Visit Ophthalmology at [place] [phone] Bina Agrawal OD [facility] [place] [address] documented as of this encounter Procedures Procedure Name Priority Date/Time Associated Diagnosis Comments XR LUMBAR SPINE 2 OR 3 VIEWS Routine 12/25/2023 5:31 PM EDT Acute midline low back pain without sciatica documented in this encounter Results * XR Lumbar Spine 2 Or 3 Views (Generic) (12/25/2023 5:31 PM EDT) WORKSTATION ID [id number] RAD Anatomical Region Laterality Modality L-spine N/A Digital Radiogra phy Impressions 12/25/2023 5:59 PM EDT No significant degenerative changes. Vertebral body heights are preserved. Thank you for letting us participate in the care of this patient. ??If you are a health care provider and have any questions regarding this report, please contact the number below. ??For patients who have questions please contact the health medicare coordinator that requested your imaging first. ? Narrative 12/25/2023 5:59 PM EDT EXAMINATION: XR LUMBAR SPINE 2 OR 3 VIEWS (GENERIC) CLINICAL HISTORY: 5 days of spinal lumbar pain M54.50, Low back pain, unspecified TECHNIQUE: 2 views of the lumbar spine COMPARISON: Scoliosis radiograph 05/25/2020 FINDINGS: Transitional vertebral anatomy. Normal lumbar lordosis. Partially visualized thoracolumbar scoliosis, similar. No spondylolisthesis. Vertebral body heights and intervertebral disc spaces are preserved. No significant degenerative changes. Procedure Note Nell Nieto MD - 12/25/2023 EXAMINATION: XR LUMBAR SPINE 2 OR 3 VIEWS (GENERIC) CLINICAL HISTORY: 5 days of spinal lumbar pain M54.50, Low back pain, unspecified TECHNIQUE: 2 views of the lumbar spine COMPARISON: Scoliosis radiograph 05/25/2020 FINDINGS: Transitional vertebral anatomy. Normal lumbar lordosis. Partially visualized thoracolumbar scoliosis,similar. No spondylolisthesis. Vertebral body heights and intervertebral disc spaces are preserved. No significant degenerative changes. IMPRESSION No significant degenerative changes. Vertebral body heights arepreserved. Thank you for letting us participate in the care of this patient. If youare a health care provider and have any questions regarding this report,please contact the number below. For patients who have questions please contactthe health medicare coordinator that requested your imaging first. Bessie Macias MD IMG DX ORDERABLES documented in this encounter Visit Diagnoses Diagnosis Acute midline low back pain without sciatica documented in this encounter Care Teams Optical Designer Relationship Specialty Start Date End Date Edilma Cornejo MD [facility] [place] [address] PCP - General 12/05/22 documented as of this encounter
--- OUTSIDE RECORDS SUMMARY | 2024-07-29 00:22 | XMS_ITS | Encounter Summary ---
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 Pre Admit [place] [address] [place] [address] Referral ID Status Reason Start Date Expiration Date V isits Requested Visits Authorized [id number] Closed Consult Only 04/15/2024 04/15/2025 1 1 * Consultation (Routine) - Closed Specialty Diagnoses / Procedures Referred By Contac t Referred To Contact National Opelint Analyst Diagnoses Housing instability Elida Ku MD [facility] [place] [address] [facility] Solution Design Engineer [address] [place] [address] Referral ID Status Reason Start Date Expiration Date V isits Requested Visits Authorized [id number] Closed Consult, Test & Treat 04/15/2024 04/15/2025 1 1 * Consultation (Routine) - Closed Specialty Diagnoses / Procedures Referred By Contac t Referred To Contact Obstetrics and Gynecology Diagnoses care, antepartum Elida Ku MD [facility] [place] [address] [facility] [employer] [address] [place] [address] Referral ID Status Reason Start Date Expiration Date V isits Requested Visits Authorized [id number] Closed Consult, Test & Treat 04/15/2024 04/15/2025 1 1 Encounter Details Date Type Department Care Team (Late st Contact Info) Description 04/15/2024 2:00 PM EDT Initial Obstetrics [place] [address] Elida Ku MD [facility] [place] [address] GA: 8w0d Social History Tobacco Use Types Packs/Day Years [...] from your doctor or pharmacy? Never 04/15/2024 [facility] Utilities Answer Date Recorded In the past 12 months has e [employer], gas, oil, or water company threatened to [...] any time in the past 12 m [facility], were you homeless or living in a intermediate (including now)? No 04/15/2024 IPV Inpatient Questions [...] Sign Reading Time Taken Comments Blood Pressure 96/70 04/15/2024 1:43 PM EDT Pulse 85 04/15/2024 1:43 PM EDT Temperature - - Respiratory Rate - - Oxygen Saturation 100% 04/15/2024 1:43 PM EDT Inhaled Oxygen Concentration - - Weight 56.2 kg (123 lb 12.8 oz) 04/15/2024 1:43 PM EDT Height - - Body Mass Index 25 12/26/2023 12:39 PM EDT documented in this encounter Progress Notes * Elida Ku MD - 04/15/2024 2:00 PM EDT Images from the original note were not included. [facility] NEW OB VISIT HPI: Ely Mahmood is a 19 y.o. who presents for a new OB visit at 8w0d by LMP. Patient's last menstrual period was 02/19/2024. History is significant for: Subclinical hypothyroidism Most recent TSH 3.13 (06/07/2023), FT4 1.21 (10/07/2022) TPO antibody titer >1000 on 02/14/[address] Ponce who suspects she will likely transition to overt hypothyroidism in the near future given highly elevated TPO antibody titer. 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 Pt has been feeling well overall. She has had a little bit of nausea so far this , but no vomiting. She is here with her partner who is the father of the baby. 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 She has not had a return of bleeding or pain since the first time early in . Treated for chlamydia a [facility] of weeks ago at [facility]. She reports both of her recent partners have been tested and were negative. She finished her course of azithromycin. She has not yethad a test of cure. Gynecological History Pap hx: none yet History of gynecologic infections/STIs: chlamydia (recent diagnosis was the first time) History of gynecological problems: none Gynecological surgeries: none Fertility issues: none Sexual, physical and mental abuse/IPV: denies OB Risk Factors Aspirin (start >= 12 weeks) HIGH RISK >= 2 MEDIUM RISK History preeclampsia or gestational hypertension Chronic hypertension Multifetal gestation Pre-gestational diabetes Renal disease Autoimmune disorders (e.g SLE, antiphospholipid syndrome) Nulliparity Age >= 35 years >10 year interval between BMI >= 30 kg/m2 ethnicity Mother or sister with preeclampsia History of IUGR TSH Symptoms Personal history of thyroid disease or TPO antibodies Family history Goiter Autoimmune disease Type I diabetes Infertility or recurrent miscarriage BMI >40 kg/m2 Immigrant from areas of moderate to severe iodine deficiency First trimester 0.1 to 2.5 Second trimester 0.2 to 3.0 Third trimester 0.3 to 3.0 Early A1c: BMI >25 (>23 if Tunisian) with one or more of the following Physical inactivity First degree relative with diabetes High risk ethnicity (, , , Tunisian, ) Previously given to an infant weighing =/> 4000 grams Previous GDM HTN >140/90 or on treatment for HTN HDL cholesterol <35 or triglycerides > 250 PCOS HbA1c >/= to 5.7 or other impaired glucose testing History of cardiovascular disease Age >35 HIV >6.5% - meets criteria for diagnosis of diabetes. 5.7 - 6.4% - impaired glucose tolerance. Consider recommendation for nutrition counseling. Plan routine screening with 1hr GCT at 24-28w. <5.7% - normal. Plan routine screening with 1hr GCT at 24-28w. Social history: Tobacco: nicotine through vaping, but quit Alcohol: past Drugs: marijuana (quit) Substance abuse: none Mental health: depression and anxiety Exposure to toxins and heavy chemicals: none Cats: grandmother is cleaning the litter box Resources available: Access to food: good Safe housing: living with her grandmother at the moment but actively looking Transportation: good Genetic history: Ely Mahmood ancestry/ethnicity is unknown. Partner's ancestry/ethnicity is Marshallese. She reports her half-sister (connected through father) is a carrier for cystic fibrosis. She is hoping for genetic testing for this . 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 Q76.3 Depression F32.A Subclinical hypothyroidism E03.8 Generalized anxiety disorder F41.1 care Z34.90 Chlamydia infection affecting in first trimester O98.811, A74.9 Housing instability Z59.819 Asthma J45.909 Past surgical history: Past Surgical History: Procedure Laterality Date CREATED BY INTERFACE ADENOIDECTOMY PRIMARY UNDER AGE 12 / VAPORIZATION ADENOIDS Procedure Date: 10/26/2008 CREATED BY INTERFACE MYRINGOTOMY, INSERTION OF TUBE PARESH / BILATERAL Procedure Date: 05/22/2006 CREATED BY INTERFACE MYRINGOTOMY, INSERTION OF TUBE APRESH / BILATERAL Procedure Date: 09/15/2007 TYMPANOMASTOIDECTOMY TYMPANOSTOMY TUBE PLACEMENT Medications: Medications 04/15/24 1350 Medication Sig Taking? vitamin with vxeaoxtj-Hi-Hyks-FA Tablet Take by mouth. Yes albuteroL 90 mcg/actuation HFA Aerosol Inhaler Inhale 2 puffs into the lungs every 4 hours as needed for Wheezing. Use with spacer Yes levothyroxine (Synthroid) 50 mcg tablet Take 1 tablet by mouth daily. Allergies: Allergies Allergen Reactions Band-Aid [Adhesive Bandage] Rash Fabric band-aids PHYSICAL EXAM: Vitals: 04/15/24 1343 BP: 96/70 Patient Position: Sitting Pulse: 85 SpO2: 100% Weight: 56.2 kg (123 lb 12.8 oz) Body mass index is 25 kg/m??. Weight gain recommendations in BMI <18.5 kg/m2 (underweight) - Weight gain 28 to 40 lb (12.5 to 18.0 kg) BMI 18.5 to 24.9 kg/m2 (normal weight) - Weight gain 25 to 35 lb (11.5 to 16.0 kg) BMI 25.0 to 29.9 kg/m2 (overweight) - Weight gain 15 to 25 lb (7.0 to 11.5 kg) BMI >=30.0 kg/m2 (obese) - Weight gain 11 to 20 lb (5 to 9.0 kg) General: Well developed female. Skin: no rashes Neck: no thyromegaly or lymphadenopathy Breast: Deferred after discussion and shared decision making. Abdomen: no scars, no masses or hepatosplenomegaly; soft, nontender, nondistended Pelvic: Normal appearing external genitalia without lesions or abnormalities during transvaginal ultrasound. Speculum and bimanual exam deferred with shared decision making. Patient provided self swab for gonorrhea/chlamydia. Extremities: No calf tenderness or lower ext edema Neuro: grossly intact TVUS CRL 13.9 mm GA 7w5d 04/15/2024 1:30 PM Intake Questionnaire (Pt Reported) Who is taking survey I am (patient) Main support at home Relative Gnosticist beliefs No Comfort level reading health-related materials 4 (Comfortable) Avg daily physical activity Some (mix of sitting and standing, walking only for necessary activities) Participate in moderate physical exercise A couple times a week Diet No special diet Severe nausea/vomiting this No Satisfied with eating patterns No Weight affect how you feel about self No Current/past eating disorder? No Any concerns with depression, anxiety, or other mental health struggles? 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 No Need to speak in private No 04/15/2024 Social Determinants of Health (SDoH v3) Financial Strain Patient declined Food worry Patient declined Food inability Patient declined Unable to pay mortgage/rent Patient declined Times moved? 3 Homeless/Lived in intermediate? No Electric, gas, oil, or water company threatened to shut off services No Feel isolated Some of the time Medical transport needs No Non-medical transport needs No How often need help with reading information from doctor/pharmacy? Never What kind of help? I would like information about help No data to display In the past year: 04/15/2024 Ob Screener Drinking frequency Monthly or less Drinks per day 1 to 2 drinks 4+ drinks on one occasion Less than monthly JAYASHREE Score Never Substance use treatment No Use tobacco or nicotine products No Use marijuana or synthetic marijuana products No At risk for witnessing or experiencing an opioid overdose No PHQ9 Questionnaires Data (Clinic and Pt Entered): last 4 values 07/22/2023 08/20/2023 09/09/2023 04/15/2024 PHQ-9: Last 4 Responses PHQ - 9 Score 13 (Moderate Depression) 13 (Moderate Depression) 9 (Mild Depression) 8 (Mild Depression) 12 (Moderate Depression) PHQ - 9 Score (Pt Questionnaire) 13 (Moderate Depression) 13 (Moderate Depression) 9 (Mild Depression) 8 (Mild Depression) 12 (Moderate Depression) Little interest or pleasure More than half the days More than half the days Several Days Several Days More than half the days Little interest or pleasure (Pt Questionnaire) More than half the days More than half the days Several Days Several Days More than half the days Down, depressed, hopeless More than half the days More than half the days Several Days Several Days Several Days Down, depressed, hopeless (Pt Questionnaire) More than half the days More than half the days Several Days Several Days Several Days Trouble sleeping More than half the days More than half the days More than half the days Several days Nearly every day Trouble sleeping (Pt Questionnaire) More than half the days More than half the days More than half the days Several days Nearly every day Tired or no energy Several Days Several Days Several Days More than half the days More than half the days Tired or no energy (Pt Questionnaire) Several Days Several Days Several Days More than half the days More than half the days Poor appetite or overeating Several days Several days More than half the days Several days Nearly every day Poor appetite or overeating (Pt Questionnaire) Several days Several days More than half the days Several days Nearly every day Feeling like a failure Nearly every day Nearly every day More than half the days Several Days Several Days Feeling like a failure (Pt Questionnaire) Nearly every day Nearly every day More than half the days Several Days Several Days Trouble concentrating (Pt Questionnaire-Adolescent) Several days Several days Not at all Several days Not at all Moving or speaking slowly Not at all Not at all Not at all Not at all Not at all Moving or speaking slowly (Pt Questionnaire) Not at all Not at all Not at all Not at all Not at all Would be better off Several Days Several Days Not at all Not at all Not at all Would be better off (Pt Questionnaire) Several Days Several Days Not at all Not at all Not at all Thoughts about ending your life No Thoughts about ending your life (Pt Questionnaire-Adolescent) No Attempted to kill yourself No Attempted to kill yourself (Pt Questionnaire-Adolescent) No Multiple values from one day are sorted in reverse-chronological order GAD7 Questionnaires Data: last 4 values 08/20/2023 09/09/2023 12/09/2023 04/15/2024 PAVITHRA-7: All Responses GAD7 Total Score (Range 0-21) 8 (Mild Anxiety) 5 (Mild Anxiety) 15 (Severe Anxiety) 7 (Mild Anxiety) PAVITHRA-7 Score 8 5 15 7 PAVITHRA-7 Score (Pt Questionnaire) 8 (Mild Anxiety) 5 (Mild Anxiety) 15 (Severe Anxiety) 7 (Mild Anxiety) Nervous, anxious (Pt Questionnaire) More than half the days Several days Nearly every day More thanhalf the days Nervous, anxious More than half the days Several days Nearly every day More than half the days Unable to stop worrying (Pt Questionnaire) More than half the days Several days Nearly every day Several days Unable to stop worrying More than half the days Several days Nearly every day Several days Worrying about different things (Pt Questionnaire) Several days Several days Nearly every day More than half the days Worrying about different things Several days Several days Nearly every day More than half the days Trouble relaxing (Pt Questionnaire) More than half the days Several days Nearly every day Several days Trouble relaxing More than half the days Several days Nearly every day Several days Restless (Pt Questionnaire) Not at all Not at all Not at all Not at all Restless Not at all Not at all Not at all Not at all Easily annoyed, irritable (Pt Questionnaire) Not at all Several days More than half the days Not atall Easily annoyed, irritable Not at all Several days More than half the days Not at all Afraid something awful will happen (Pt Questionnaire) Several days Not at all Several days Several days Afraid something awful will happen Several days Not at all Several days Several days In the past year: 04/15/2024 1:32 PM Ob Screener Drinking frequency Monthly or less Drinks per day 1 to 2 drinks 4+ drinks on one occasion Less than monthly JAYASHREE Score Never Substance use treatment No Use tobacco or nicotine products No Use marijuana or synthetic marijuana products No At risk for witnessing or experiencing an opioid overdose No ASSESSMENT/PLAN Ely Jagrutiradha Timoteo is a 19 y.o. at 8w0d by LMP who presents today to establish care with the Pod team. is complicated by: Chlamydia in SONIDO performed today Plan for repeat STI panel with 32-wk labs Positive TPO antibody titer Start levothyroxine 50mcg daily TSH with reflex FT4 ordered with lab panel Anxiety, depression Referral for OBGYN behavioral health for psychotherapy and support GAD7 = 7 today PHQ9 = 12 today Unstable housing Connecting with social work to help offer patient housing resources and recommendations Scoliosis, congenital bony malformation Referral placed for anesthesia consult Routine care: Patient oriented to practice Role of ultrasound in discussed and official dating US scheduled for next week Routine labs ordered ABO/RH/antibody screen -CBC -Rubella and varicella titer -UA with culture -GC/CT -HIV -RPR -HBsAg, and HCV Cervical cancer screening not indicated until age 21. Genetic screening: Panorama cfDNA genetic screen, and carrier testing for CF and SMA reviewed. We discussed the potential risks and benefits of finding out genetic information, as well as the conceptthat these are screening tests alone, not diagnostic. Panorama: Desires Carrier screening: Desires. Given insurance provider, will message about potential financial impactfor this patient. Continue vitamin New OB education reviewed Discussed healthy living/exercise Reviewed recommended weight gain in of 15-25 pounds with starting BMI of Body mass index is 25 kg/m??. Avoidance of alcohol, tobacco, and drugs. OB precautions given, when to call provider and/or seek emergency care Recommend early A1c, TSH Flu vaccine given today Problem list reviewed and updated Return to clinic in approximately 4 weeks for NOB Part 2. Appointments will be every four weeks till 36 weeks GA, then every 1-2 weeks until delivery. Elida Ku MD PGY-1 Obstetrics and Gynecology 04/15/24 * Dara Gonzalez MD - 04/15/2024 2:00 PM EDT I have seen the patient and reviewed the resident's note and I agree with the plan of care. 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 * Assessment & Plan Note - Elida Ku MD - 04/15/2024 4:54 PM EDTAssociated Problem(s): Subclinical hypothyroidism - Plan for qTrimester TSH screen - Started on levothyroxine 50mcg daily at first visit * Assessment & Plan Note - Elida Ku MD - 04/15/2024 4:51 PM EDTAssociated Problem(s): Generalized anxiety disorder Referral placed [facility] for psychotherapy and support * Assessment & Plan Note - Elida Ku MD - 04/15/2024 4:51 PM EDTAssociated Problem(s): Depression Referral placed for OBGYN behavioral health for psychotherapy and support * Assessment & Plan Note - Elida Ku MD - 04/15/2024 4:50 PM EDTAssociated Problem(s): Chlamydia infection affecting in first trimester SONIDO performed on 04/15/24 (result pending). Plan for repeat STI testing during second and third trimesters * Assessment & Plan Note - Elida Ku MD - 04/15/2024 4:50 PM EDTAssociated Problem(s): Housing instability Referral placed to social work for resources and support. documented in this encounter Plan of Treatment Upcoming Encounters Date Type Department Care Team (Late st Contact Info) Description 08/08/2024 9:00 AM EST Appointment [facility], [facility] [address] [address] Umu Saucedo, RN 08/15/2024 10:45 AM EST TH Visit (TeleHealth) Obstetrics [place] [address] Dara Kelley MD [facility] [place] [address] 11/25/2024 [place] [address] Dara Gonzalez MD [facility] [place] [address] 07/12/2025 1:40 PM EST Office Visit Ophthalmology at [place] [address] Bina Agrawal OD [facility] [place] [address] Scheduled Referrals Name Type Priority Associated Diagnoses Orde r Schedule Referral to director human services Behavioral Health (Psychotherapy and Psychiatry) Outpatient Referral Routine care, antepartum Ordered: 04/15/2024 Referral to Social Work Outpatient Referral Routine Housing instability Ordered: 04/15/2024 Anesthesia Pre-Operative Evaluation Referral Outpatient Referral Routine 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 Ordered: 04/15/2024 documented as of this encounter Procedures Procedure Name Priority Date/Time Associated Diagnosis Comments GC/CHLAMYDIA Routine 04/15/2024 3:24 PM EDT care, antepartum URINE CULTURE Routine 04/15/2024 3:24 PM EDT care, antepartum US OB (SYNC) Routine 04/15/2024 3:00 PM EDT documented in this encounter Results * PANORAMA TEST (04/25/2024 11:17 AM EST) Report Summary (TRAVIS) LOW RISK 04/15 1:57 AM EST [facility] Comment:LOW RISK Report Note (TRAVIS) See Notes 024 1:57 AM EST [facility] Trisomy 13 Result Text (TRAVIS) Low Risk 04/30/2024 1:57 AM EST [facility] Trisomy 13 Risk Score Text (TRAVIS) <1/10,000 (<0.01%) 04/30/2024 1:57 AM EST [facility] Trisomy 18 Result Text (TRAVIS) Low Risk 04/30/2024 1:57 AM EST RE[facility] Trisomy 18 Risk Score Text (TRAVIS) <1/10,000 (<0.01%) 04/30/2024 1:57 AM EST RE[facility] Trisomy 21 Result Text (TRAVIS) Low Risk 04/30/2024 1:57 AM EST RE[facility] Trisomy 21 Risk Score Text (TRAVIS) <1/10,000 (<0.01%) 04/30/2024 1:57 AM EST [facility] Monosomy X Result Text (TRAVIS) Low Risk 04/30/2024 1:57 AM EST RE[facility] Monosomy X Risk Score Text (TRAVIS) <1/10,000 (<0.01%) 04/30/2024 1:57 AM EST [facility] Triploidy Result Text (TRAVIS) Low Risk 04/30/2024 1:57 AM EST [facility] Sex (TRAVIS) Male 1:57 AM EST [facility] Fraction (TRAVIS) 6.3% 04/15 1:57 AM EST RE[facility] Footnotes (TRAVIS) See Notes 1:57 AM EST RE[facility] Comment: Testing Methodology DNA isolated from maternal blood, which contains placental DNA, is amplified at specific loci using a targeted PCR assay and is sequenced using a high- throughput sequencer. fraction is determined using a proprietary algorithm incorporating data from single nucleotide polymorphism-based (SNP-based) next-generation sequencing [Persusanna E et al. Obstet Gynecol. 2014 Jan;124(2 Pt 1):210-8]. If there is sufficient fraction, sequencing data is analyzed using a proprietary SNP- based algorithm to determine the copy number for chromosomes 13, 18, 21, X and Y. If ordered, specific microdeletions will be evaluated using similar methodology [Chandler TODD et al. Am J Obstet Gynecol. 2015 Aug;212(3):332.e1-9]. If the fraction is insufficient, signal enhancement and/or an additional algorithm to determine whether there is an increased risk for triploidy, trisomy 18, and trisomy 13 may be utilized [Raul et al. Ultrasound Obstet Gynecol 2019; 53:73-79]. However, some samples will not produce a result due to failure to meet the necessary quality thresholds. This test has been validated on women with a randle, twin or egg donor of at least nine weeks gestation. A result will not be available for higher order multiples and multiple gestation pregnancies with an egg donor or surrogate, or bone marrow transplant recipients. Complete test panel is not available for twin gestations and pregnancies achieved with an egg donor or surrogate. For twin pregnancies with a fraction value below the threshold for analysis, a sum of the fractions for both twins will be reported. As this assay is a screening test and not diagnostic, false positives and false negatives can occur. High risk test results need diagnostic confirmation by alternative testing methods. Low risk results do not fully exclude the diagnosis of any of the syndromes nor do they exclude the possibility of other chromosomal abnormalities or defects, which are not a part of this test. Potential sources of inaccurate results include, but are not limited to, mosaicism, low fraction, limitations of current diagnostic techniques, or misidentification of samples. This test will not identify all deletions associated with each microdeletion syndrome. This test has been validated for deletions ??> = 0.5 Mb within the 22q11.2 A-D region. This test has been validated on full region deletions only for 1p36 deletion syndrome, Cri-du-chat syndrome, Prader Willi syndrome and Angelman syndrome and may be unable to detect smaller deletions. Microdeletion risk score may be dependent upon fraction, as deletions on the maternally inherited copy are difficult to identify at lower fractions. Test results should always be interpreted by a clinician in the context of clinical and familial data with the availability of genetic counseling when appropriate. Disclaimers This test was performed by [facility]. [address], [place] [address] (CLIA ID [id number]). The performance characteristics of this test were developed by [facility]. This test has not been cleared or approved by the U.S. Food and Drug Administration (FDA). This laboratory is regulated under CLIA as qualified to perform high-complexity testing. ??202 [facility]. All Rights Reserved. Please refer to the attached PDF report Reviewed By: Renan Alonso M.D., Ph.D., [facility], Senior Translation Director [facility] Watch And Clock Repair Clerk: Efe Loomis, Ph.D., [facility] IF THE ORDERING PROVIDER HAS QUESTIONS OR WISHES TO DISCUSS THE RESULTS, PLEASE CONTACT US AT [phone] #[phone]. Ask for the NIPT genetic counselor instructional technology coach. Trisomy 13 Age-Based Risk Text (TRAVIS) 1/6,347 (0.02%) 04/30/2024 1:57 AM EST REF [facility] Trisomy 18 Age-Based Risk Text (TRAVIS) 06/15,993 (0.05%) 04/30/2024 1:57 AM EST REF [facility] Trisomy 21 Age-Based Risk Text (TRAVIS) 1984 (0.1%) 04/30/2024 1:57 AM EST REF [facility] Monosomy X Age-Based Risk Text (TRAVIS) 1/255 (0.39%) 04/30/2024 1:57 AM EST REF [facility] Blood VENOUS BLOOD SPECIMEN / Unknown Venipuncture / Unknown 04/25/2024 11:17 AM EST 04/25/2024 11:17 AM EST Dara Gonzalez MD LAB SEND OUT ORDERAB LES REF [facility] [address] [place] [address], [facility] * Hemoglobin A1c (04/15/2024 3:41 PM EDT) Hemoglobin A1c 5.0 4.3 - 5.6 % 04/15/2024 4:12 PM EDT [facility] Comment: Per ADA guidelines, without [...] red blood cell turnover may not be inside outside sales representative of glycemic control. Reference Interval: 4.3 - 5.6% 5.7 - 6.4%: Consistent with prediabetes >=6.5%: Consistent with diagnosis of diabetes mellitus Estimated Average Glucose 97 mg/dL 04/15/2024 4:12 PM EDT [facility] Blood VENOUS BLOOD SPECIMEN / Unknown Venipuncture / Unknown 04/15/2024 3:41 PM EDT 04/15/2024 3:42 PM EDT Dara Gonzalez MD CHEMISTRY ORDERABLES Performing Organization Address [facility] Co de Phone Number [facility] [place] [address] * TSH Mcdonald (04/15/2024 3:41 PM EDT) Thyroid Stimulating Hormone 1.87 0.27 - 4.20 mcIU/mL 04/15/2024 4:31 PM EDT [facility] Comment: Reference Interval (mcIU/mL): ?? Females: ? First Trimester: 0.23-3.88 ? Second Trimester: 0.22-3.90 ? Third Trimester: 0.44-4.66 Blood VENOUS BLOOD SPECIMEN / Unknown Venipuncture / Unknown 04/15/2024 3:41 PM EDT 04/15/2024 3:42 PM EDT Dara Gonzalez MD CHEMISTRY ORDERABLES Performing Organization Address City/[facility]/ZIP Co de Phone Number [facility] [place] [address] * Hepatitis C Antibody (04/15/2024 3:41 PM EDT) Hepatitis C Antibody Negative Negative 04/15/2024 4:44 PM EDT [facility] Blood VENOUS BLOOD SPECIMEN / Unknown Venipuncture / Unknown 04/15/2024 3:41 PM EDT 04/15/2024 3:42 PM EDT Dara Gonzalez MD CHEMISTRY ORDERABLES Performing Organization Address City/[facility]/ZIP Co de Phone Number [facility] [place] [address] * Urine culture (04/15/2024 3:24 PM EDT) Pathologist [facility] Urine Culture No growth 04/16/2024 12:08 PM EDT [facility] Urine URINE SPECIMEN OBTAINED BY CLEAN CATCH PROCEDURE / Unknown Non Blood Collection / Unknown 04/15/2024 3:24 PM EDT 04/15/2024 3:32 PM EDT Jenni Calabrese MD MICROBIOLOGY - G ENERAL ORDERABLES [facility] [place] [address] * GC/Chlamydia (04/15/2024 3:24 PM EDT) Gonorrhoeae Gene Amp Negative 04/15/2024 11:58 PM EDT [facility] Chlamydia Gene Amp Negative 04/15/2024 11:58 PM EDT [facility] Swab SPECIMEN FROM CERVIX OR VAGINA / Unknown Non Blood Collection / Unknown 04/15/2024 3:24 PM EDT 04/15/2024 4:12 PM EDT Dara Gonzalez MD MICROBIOLOGY - GENER AL ORDERABLES Performing Organization Address City/[facility]/ZIP Co de Phone Number [facility] [place] [address] * US OB (POCUS) (04/15/2024 3:00 PM EDT) Anatomical Region Laterality Modality Other 04/15/2024 3:00 PM EDT Narrative 04/15/2024 3:31 PM EDT OB 1st Tri [place] Rump Length A focused ultrasound exam of the pelvis was performed to evaluate for intra- uterine (IUP) and viability. route of ultrasound transvaginal Dating criteria LMP 02/19/24 Prior US date Gestational age at prior US Indications The ultrasound was performed in a patient with a positive test and the following indication(s): Other indications as noted in encounter [place] Rump Length Image qulality 4/5 focal zone at appropriate level,image magnified appropriately,embryo/fetus in neutral position,maximum length of embryo/fetus shown,maximum length of embryo/fetus measured cranial to caudal Views Obtained The following structures were identified: single sagittal image demonstrating the cervix, bladder, uterine fundus and gestational sac,sagittal image of the embryo w measurements,cine loop of cardiac activity Findings Exam of the above structures revealed the following findings: intrauterine gestational sac(s),yolk sac(s),embryo(s),cardiac activity number of gestational sacs one crown rump length 12.8 mm Heart Rate 155 bpm Other uterine findings: Impression Interpretation of the findings indicates Viable IUP Other: Confirmatory Study: ??indicated for patients with no prior formal US or indeterminant findings on point of care US Ultrasound Attending Attestation I was present and directly supervising the resident during the procedure. DH1x Comments Remember to enter your work in Charge Capture in eDH under POCUS Electronically Signed by the following: Performing: Elida Ku ??on Resulting Physician: Dara Gonzalez ??on Procedure Note Dara Gonzalez MD - 04/15/2024 OB 1st Tri [place] Rump Length A focused ultrasound exam of the pelvis was performed to evaluate forintra- uterine (IUP) and viability. route of ultrasound transvaginal Dating criteria LMP 02/19/24 Prior US date Gestational age at prior US Indications The ultrasound was performed in a patient with a positive testand the following indication(s): Other indications as noted in encounter [place] Rump Length Image qulality 4/5 focal zone at appropriate level,image magnifiedappropriately,embryo/fetus in neutral position,maximum length of embryo/fetus shown,maximum length ofembryo/fetus measured cranial to caudal Views Obtained The following structures were identified: single sagittal imagedemonstrating the cervix, bladder, uterine fundus and gestational sac,sagittal image of the embryo wmeasurements,cine loop of cardiac activity Findings Exam of the above structures revealed the following findings: intrauterinegestational sac(s),yolk sac(s),embryo(s),cardiac activity number of gestational sacs one crown rump length 12.8 mm Heart Rate 155 bpm Other uterine findings: Impression Interpretation of the findings indicates Viable IUP Other: Confirmatory Study: indicated for patients with no prior formal US orindeterminant findings on point of care US Ultrasound Attending Attestation I was present and directly supervising the resident during theprocedure. 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 Depression, unspecified depression type Generalized anxiety disorder Subclinical hypothyroidism Other specified acquired hypothyroidism Asthma, unspecified asthma severity, unspecified whether complicated, unspecified whether persistent Conductive hearing loss, unilateral with unrestricted hearing on the contralateral side Conductive hearing loss, unilateral documented in this encounter Care Teams Distribution Technician Relationship Specialty Start Date End Date Edilma Cornejo MD [facility] [place] [address] PCP - General 12/05/22 documented as of this encounter
--- OUTSIDE RECORDS SUMMARY | 2024-07-29 00:22 | XMS_ITS | Encounter Summary ---
Author Organization [facility] Address [facility] [place] [address] Care Team Providers Care Wafer Batter Mixer Name Role Phone Edilma Cornejo MD Primary Care Provider [phone] Encounter Details Date Type Department Care Team (Latest Contact Info) Description 04/15/2024 Travel Social History Tobacco Use Types Packs/Day [...] from your doctor or pharmacy? Never 04/15/2024 [facility] Utilities Answer Date Recorded In the past 12 months has e electric, gas, oil, or water [employer] threatened to shut off services in your [...] time in the past 12 m [facility], were you homeless or living in a long term (including now)? No 04/15/2024 IPV Inpatient Questions [...] Description 08/08/2024 9:00 AM EST Appointment [address] [phone] Umu Saucedo, RN 08/15/2024 10:45 AM EST TH Visit (TeleHealth) Obstetrics [place] [address] Dara Kelley MD [facility] OBSTETRICS [place] [address] 11/25/2024 Hospital Encounter Birthing [place] [address] Dara Gonzalez MD [facility] OBSTETRICS [place] [address] 07/12/2025 1:40 PM EST Office Visit Ophthalmology at [place] [address] Bina Agrawal OD [facility] [address] documented as of this encounter Visit Diagnoses Not on filedocumented in this encounter Care Teams Wafer Batter Mixer Relationship Specialty Start Date End Date Edilma Cornejo MD [facility] [place] [address] PCP - General 12/05/22 documented as of this encounter
--- OUTSIDE RECORDS SUMMARY | 2024-07-29 00:22 | XMS_ITS | Encounter Summary ---
Author Organization [facility] Address [facility] [place] [address] Care Team Providers Care Flat Sorting Machine Clerk Name Role Phone Edilma Cornejo MD Primary Care Provider [phone] Encounter Details Date Type Department Care Team (Latest Contact Info) Description 04/18/2024 9:21 AM EST - 04/18/2024 11:59 PM [facility] Hospital En[place] [phone] Patricia Robb APRN [facility] OBSTETRICS [place] [address] Bleeding in early Discharge Disposition: Home Social History Tobacco Use [...] In the past 12 months has e [employer], gas, oil, or water [employer] threatened to shut off services in your [...] any time in the past 12 m [facility], were you homeless or [...] Refills Start Date End Date vitamin with xuyejwwa-Rc-Qxot-FA Tablet Take 1 tablet by mouth daily. albuteroL 90 mcg/actuation HFA Aerosol Inhaler Inhale 2 puffs into the lungs every 4 hours as needed for Wheezing. Use with spacer 1 each 5 05/29/2023 levothyroxine (Synthroid) 50 mcg tablet Take 1 tablet by mouth daily. 90 tablet 3 04/15/2024 05/04/2024 documented as of this encounter Plan of Treatment Upcoming Encounters Date Type Department Care Team (Late st Contact Info) Description 08/08/2024 9:00 AM EST Appointment [address] [phone] Umu Saucedo, RN 08/15/2024 10:45 AM EST TH Visit (TeleHealth) Obstetrics [place] [address] Dara Kelley MD [facility] DR OBSTETRICS [place] [address] 11/25/2024 Hospital En[place] [address] Dara Gonzalez MD [facility] OBSTETRICS AND GYNECOLOGY [place], [place] [phone] 07/12/2025 1:40 PM EST Office [place] [address] Bina Agrawal, JONELLE [facility] [place] [address] documented as of this encounter Procedures Procedure Name Priority Date/Time Associated Diagnosis Comments US OB TRANSVAGINAL Routine 04/18/2024 9: 43 AM EST Bleeding in early documented in this encounter Results * US OB Viability Transvaginal (04/18/2024 9:43 AM EST) WORKSTATION ID [id number] RAD Anatomical Region Laterality Modality Pelvis, Abdomen Ultrasound 04/18/2024 9:41 AM EST Impressions 04/18/2024 10:02 AM EST 1st Trimester Summary Single intrauterine with a gestational age of 8w 3d based on LMP (02/19/24) with observed cardiac activity. The crown rump length corresponds to a gestational age of 8w 4d. Thank you for letting us participate in the care of this patient. If you are a health care provider and have any questions regarding this report, please contact the number above. For patients who have questions, please contact the health urgent care technician that requested your imaging first. ? Harris Martinez, Physician Electronically Signed Final Report ?? 04/18/2024 10:01 am Narrative 04/18/2024 10:02 AM EST OBSTETRICS REPORT ? (Signed Final 04/18/2024 10:01 am) PATIENT INFO: ID #: ? [id number] ?: ??[birth year] (19 yrs)(F) Name: ? DIEGO MACKENZIE ? Visit Date: 04/18/2024 09:41 am ? BENJA PERFORMED BY: Attending: ?Harris Martinez MD Performed By: ? Will LINCOLN, Celine Li Referred By: ?PATRICIA ROBB Location: ? [place] SERVICE(S) PROVIDED: UOBTV - 1st Trimester-Transvaginal - [id number] INDICATIONS: 8 weeks gestation of ?Z3A.08 bleeding in early TECHNIQUE/SCAN QUALITY: Technique: ?? Transducer ID#:[id number] EVALUATION: Num Of Fetuses: ?1 Gest. Sac: ? Visualized Yolk Sac: ?Visualized Heart Rate(bpm): ?? 178 Presentation: ?Too early to evaluate Placenta: ?Too early to evaluate Amniotic Fluid VALDEMAR FV: ?Too early to evaluate --------- BIOMETRY: --------- CRL: ?20.0 ??mm ? G.Age: ?? 8w 4d ? RUFINO: ?? 11/24/24 GESTATIONAL AGE: LMP: ? 8w 3d ? Date: ??02/19/24 ? RUFINO: ?11/25/24 Best: ?8w 3d ?Det. By: ??LMP ??(02/19/24) ?RUFINO: ?11/25/24 CERVIX UTERUS ADNEXA: Right Ovary Size(cm) ? 3.0 ??x ?? 1.6 ?x ??1.8 ? Vol(ml): ??4.5 Visualized Left Ovary Size(cm) ? 2.8 ??x ?? 1.8 ?x ??1.7 ? Vol(ml): ??4.5 Visualized Cul De Sac No fluid seen Procedure Note Harris Martinez MD - 04/18/2024 OBSTETRICS REPORT (Signed Final 04/18/2024 10:01 am) PATIENT INFO: ID #: [id number] : [birth year] (19 yrs)(F) Name: DIEGO MACKENZIE Visit Date: 04/18/2024 09:41 am MAHMOOD PERFORMED BY: Attending: Harris Martinez MD Performed By: Celine Solis RDMS Referred By: PATRICIA ROBB Location: [place] SERVICE(S) PROVIDED: UOBTV - 1st Trimester-Transvaginal - [id number] INDICATIONS: 8 weeks gestation of Z3A.08 bleeding [...] Visualized Cul De Sac No fluid seen IMPRESSION 1st Trimester Summary Single intrauterine with a gestational age of 8w 3d based on LMP (02/19/24) with observed cardiac activity. The crown rump length corresponds to a gestational age of 8w 4d. Thank you for letting us participate in the care of this patient. If you are a health care provider and have any questions regarding this report, please contact the number above. For patients who have questions, please contact the health urgent care technician that requested your imaging first. Harris Martinez, Physician Electronically Signed Final Report 04/18/2024 10:01 am Patricia Robb APRN IMG US OB ORD ERABLES documented in this encounter Visit Diagnoses Diagnosis Bleeding in early Unspecified hemorrhage in early , unspecified as to episode of care documented in this encounter Care Teams Flat Sorting Machine Clerk Relationship Specialty Start Date End Date Edilma Cornejo MD [facility] [place] [address] PCP - General 12/05/22 documented as of this encounter
--- OUTSIDE RECORDS SUMMARY | 2024-07-29 00:22 | XMS_ITS | Encounter Summary ---
Author Organization [facility] Address [facility] Chantal [place]ichtam[place] [address] Care Team Providers Care [employer] [place] Clerk Name Role Phone Edilma Cornejo MD Primary Care Provider [phone] Encounter Details Date Type Department Care Team (Latest Contact Info) Description 04/04/2024 Travel Social History Tobacco Use Types Packs/Day [...] Description 08/08/2024 9:00 AM EST Appointment [address] [phone] Umu Saucedo RN 08/15/2024 10:45 AM EST TH Visit (TeleHealth) Obstetrics [place] [address] Dara Kelley MD [facility] OBST[place] [address] 11/25/2024 Hospital Encounter Birthing [place] [phone] Dara Gonzalez MD [facility] [place]ST[place] [address] 07/12/2025 1:40 PM EST Office Visit Ophthalmology at [place] [address] Bina Agrawal OD [facility] [place] [address] documented as of this encounter Visit Diagnoses Not on filedocumented in this encounter Care Teams [employer] Clerk Relationship Specialty Start Date End Date Edilma Cornejo MD [facility] [place] [address] PCP - General 12/05/22 documented as of this encounter
--- OUTSIDE RECORDS SUMMARY | 2024-07-29 00:22 | XMS_ITS | Encounter Summary ---
Author Organization [facility] Address [facility] [place] [address] Care Team Providers Care Forest Management Professor Name Role Phone Edilma Cornejo MD Primary Care Provider [phone] Reason for Visit * Consultation (Routine) - Closed Specialty Diagnoses / Procedures Referred By Radha arroyo Referred To Contact Securities Broker Diagnoses Housing instability Elida Ku MD [facility] OBSTETRICS & [place] [address] [facility] Communications Marketing Intern [address] [place] [address] Referral ID Status Reason Start Date Expiration Date V isits Requested Visits Authorized [id number] Closed Consult, Test & Treat 04/15/2024 04/15/2025 1 1 Encounter Details Date Type Department Care Team (Late st Contact Info) Description 04/25/2024 10:00 AM EST Notes Only Obstetrics [place] [address] Norah Lakhani MSW Social History Tobacco Use Types Packs/Day Years [...] from your doctor or pharmacy? Never 04/15/2024 [facility] Utilities Answer Date Recorded In the past [...] any time in the past 12 m [facility], were you homeless or living in a skilled nursing (including now)? No 04/15/2024 DH IPV Inpatient [...] of this encounter Progress Notes * Norah Lakhani MSW - 04/25/2024 10:00 AM EST Images from the original note were not included. [facility] Outpatient Social Work Note Patient: DIEGO YOUSIF Relevant Information: Diego is a 19-year-old patient who is 9 weeks and 3 days . FOB (Roland) joined Diego in the appointment and they gave verbal consent for JUDY Christensen to be present. Diego and Roland share that this was not planned but it is a desired one. They expressed a desire to co-parent this baby but unsure what that will look like. When SW asked them about setting expectations for roles when baby is born, they shared that they have not had this conversation. Roland shares that he will help out financially and with anything else that Diego needs. SW encouraged them to go home and think about expectations for each other. They were receptive to scheduling an appointment with this handbook writer to talk through expectations and ways to support each other. SW asked Diego what would be most helpful at this time. Pt shares that she is living in [place] and it is not good mentally. When SW asked pt if she could elaborate, pt shares that it is stressful and she doesn't feel supported. When SW asked pt about her support systems she shares that her 3 sisters are her biggest supports, she doesn't talk much to her brother and she doesn't have a gr eat relationship with her Mom. Diego shares that she has a partner now who is supportive and excitedfor baby to arrive. Pt reports that she is happy with the supports in her life. Diego shares that she needs to start looking for a new job as well. Diego shares that she has a history of anxiety and depression. Diego reports having ups and downs andthat these moods are not related to . When SW asked in a 1 week span of time how many daysis Diego feeling down, she states more than half. When thinking about her anxiety, Diego shares that she is anxious everyday. Pt shares that she was on depression medication once in her life but would rather just do therapy. Diego shares that in person visits will be better for her. Plan: -Meet with Diego and Roland on May 19 to talk through both of their expectations for when baby comes and ways to support each other - Request for individual therapy visit with Diego to be scheduled for this . JUDY Burgess and JUDY Christensen Student Pronouns: She/Her Department [facility]st[facility]s [facility] documented in this encounter Plan of Treatment Upcoming Encounters Date Type Department Care Team (Late st Contact Info) Description 08/08/2024 9:00 AM EST Appointment [facility] [address] [phone] Umu Saucedo RN 08/15/2024 10:45 AM EST Visit (TeleHealth) Obstetrics [place] [address] Dara Kelley MD [facility] OBSTETRICS [place] [address] 11/25/2024 [place] [address] Dara Gonzalez MD [facility] OBSTETRICS [place] [address] 07/12/2025 1:40 PM EST Office [place] [phone] Bina Agrawal, JONELLE [facility] [place] [address] Scheduled Referrals Name Type Priority Associated Diagnoses Orde r Schedule Referral to Social Work Outpatient Referral Routine Housing instability Ordered: 04/15/2024 documented as of this encounter Visit Diagnoses Not on filedocumented in this encounter Care Teams Forest Management Professor Relationship Specialty Start Date End Date Edilma Cornejo MD [facility] [address] PCP - General 12/05/22 documented as of this encounter
--- OUTSIDE RECORDS SUMMARY | 2024-07-29 00:22 | XMS_ITS | Encounter Summary ---
Author Organization [facility] Address [facility] Chantal reicht[place] [address] Care Team Providers Care Gun Perforator Name Role Phone Edilma Cornejo MD Primary Care Provider [phone] Encounter Details Date Type Department Care Team (Latest Contact Info) Description 02/02/2024 Travel Social History Tobacco Use Types Packs/Day [...] Info) Description 08/08/2024 9:00 AM EST Appointment [address] [address] Umu Saucedo RN 08/15/2024 10:45 AM EST TH Visit (TeleHealth) [place]stetrics [place] [address] Dara Kelley MD [facility] OBSTETRICS [place] [address] 11/25/2024 Hospital Encounter Birthing [place] [phone] Dara Gonzalez MD [facility] OBSTETRICS [place] [address] 07/12/2025 1:40 PM EST Office Visit Ophthalmology at [place] [address] Bina Agrawal OD [facility] [place] [address] documented as of this encounter Visit Diagnoses Not on filedocumented in this encounter Care Teams Gun Perforator Relationship Specialty Start Date End Date Edilma Cornejo MD [facility] [place] [address] PCP - General 12/05/22 documented as of this encounter
--- OUTSIDE RECORDS SUMMARY | 2024-07-29 00:22 | XMS_ITS | Encounter Summary ---
Author Organization [facility] Address [facility] Chantal [place] [address] Care Team Providers Care Photostat Operator Name Role Phone Edilma Cornejo MD Primary Care Provider [phone] Encounter Details Date Type Department Care Team (Latest Contact Info) Description 04/01/2024 Travel Social History Tobacco Use Types Packs/Day [...] Description 08/08/2024 9:00 AM EST Appointment [address] [address] Umu Saucedo RN 08/15/2024 10:45 AM EST TH Visit (TeleHealth) [place]stetrics [place] [address] Dara Kelley MD [facility] OBSTETRICS [place] [address] 11/25/2024 Hospital Encounter Birthing [place] [phone] Dara Gonzalez MD [facility] OBSTETRICS [place] [address] 07/12/2025 1:40 PM EST Office Visit Ophthalmology at [place] [address] Bina Agrawal OD [facility] [place] [address] documented as of this encounter Visit Diagnoses Not on filedocumented in this encounter Care Teams Photostat Operator Relationship Specialty Start Date End Date Edilma Cornejo MD [facility] [place] [address] PCP - General 12/05/22 documented as of this encounter
--- OUTSIDE RECORDS SUMMARY | 2024-07-29 00:22 | XMS_ITS | Encounter Summary ---
Author Organization [facility] Address [facility] Chantal [place]ichtam[place] [address] Care Team Providers Care Real Estate Branch Manager Name Role Phone Edilma Cornejo MD Primary Care Provider [phone] Encounter Details Date Type Department Care Team (Latest Contact Info) Description 12/25/2023 Travel Social History Tobacco Use Types Packs/Day [...] Info) Description 08/08/2024 9:00 AM EST Appointment [address] [phone] Umu Saucedo RN 08/15/2024 10:45 AM EST TH Visit (TeleHealth) [place]stetrics [place] [address] Dara Kelley MD [facility] OBSTETRICS [place] [address] 11/25/2024 Hospital Encounter Birthing [place] [phone] Dara Gonzalez MD [facility] OBSTETRICS [place] [address] 07/12/2025 1:40 PM EST Office Visit Ophthalmology at [place] [address] Bina Agrawal OD [facility] [place] [address] documented as of this encounter Visit Diagnoses Not on filedocumented in this encounter Care Teams Real Estate Branch Manager Relationship Specialty Start Date End Date Edilma Cornejo MD [facility] [place] [address] PCP - General 12/05/22 documented as of this encounter
--- OUTSIDE RECORDS SUMMARY | 2024-07-29 00:22 | XMS_ITS | Encounter Summary ---
Author Organization [facility] Address [facility] [place] [address] Care Team Providers Care Irrigation Manager Name Role Phone Edilma Cornejo MD Primary Care Provider [phone] Encounter Details Date Type Department Care Team (Late st Contact Info) Description 04/18/2024 Patient Outreach Obstetrics [place] [phone] Isis Patel Social History Tobacco Use Types [...] In the past 12 months has e [employer], gas, oil, or water company threatened to [...] any time in the past 12 m [facility], were you homeless or [...] Info) Description 08/08/2024 9:00 AM EST Appointment [address] [address] Umu Saucedo RN 08/15/2024 10:45 AM EST TH Visit (TeleHealth) Obstetrics [place] [address] Dara Kelley MD [facility] OBSTETRICS [place] [address] 11/25/2024 Hospital [place] [address] Dara Gonzalez MD [facility] OBSTETRICS [place] [address] 07/12/2025 1:40 PM EST Office [place] [address] Bina Agrawal OD [facility] [place] [address] documented as of this encounter Visit Diagnoses Not on filedocumented in this encounter Care Teams Irrigation Manager Relationship Specialty Start Date End Date Edilma Cornejo MD [facility] [address] PCP - General 12/05/22 documented as of this encounter
--- OUTSIDE RECORDS SUMMARY | 2024-07-29 00:22 | XMS_ITS | Encounter Summary ---
Author Organization [facility] Address [facility] Chantal [place] [address] Care Team Providers Care Semiconductor Equipment Technician Name Role Phone Edilma Cornejo MD Primary Care Provider [phone] Encounter Details Date Type Department Care Team (Latest Contact Info) Description 04/25/2024 Travel Social History Tobacco Use Types Packs/Day [...] doctor or pharmacy? Never 04/15/[address] [facility] Utilities Answer Date Recorded In [...] in the past 12 m [facility], were you homeless or living [...] Info) Description 08/08/2024 9:00 AM EST Appointment [address] [address] Umu Saucedo, RN 08/15/2024 10:45 AM EST TH Visit (TeleHealth) Obstetrics [place] [address] Dara Kelley MD [facility] OBSTET[place]ICS [place] [address] 11/25/2024 Hospital Encounter Birthing [place] [address] Dara Gonzalez MD [facility] OBST[place] [address] 07/12/2025 1:40 PM EST Office Visit Ophthalmology at [place] [address] Bina Agrawal OD [facility] [place] [address] documented as of this encounter Visit Diagnoses Not on filedocumented in this encounter Care Teams Semiconductor Equipment Technician Relationship Specialty Start Date End Date Edilma Cornejo MD [facility] [place] [address] PCP - General 12/05/22 documented as of this encounter
--- OUTSIDE RECORDS SUMMARY | 2024-07-29 00:22 | XMS_ITS | Encounter Summary ---
Author Organization [facility] Address [facility] Chantal [place] [address] Care Team Providers Care Industrial Green Systems Designer Name Role Phone Edilma Cornejo MD Primary Care Provider [phone] Encounter Details Date Type Department Care Team (Latest Contact Info) Description 04/18/2024 Travel Social History Tobacco Use Types Packs/Day [...] Description 08/08/2024 9:00 AM EST Appointment [address] [address] Umu Saucedo, RN 08/15/2024 10:45 AM EST TH Visit (TeleHealth) Obstetrics [place] [address] Dara Kelley MD [facility] [place] [address] 11/25/2024 Hospital Encounter Birthing [place] [address] Dara Gonzalez MD [facility] [place] [address] 07/12/2025 1:40 PM EST Office Visit Ophthalmology at [place] [address] Bina Agrawal OD [facility] [place] [address] documented as of this encounter Visit Diagnoses Not on filedocumented in this encounter Care Teams Industrial Green Systems Designer Relationship Specialty Start Date End Date Edilma Cornejo MD [facility] [place] [address] PCP - General 12/05/22 documented as of this encounter
--- OUTSIDE RECORDS SUMMARY | 2024-07-29 00:22 | XMS_ITS | Encounter Summary ---
Author Organization [facility] [place] [address] Care Team Providers Care [employer] Police Lieutenant Name Role Phone Edilma Cornejo MD Primary Care Provider [phone] Encounter Details Date Type Department Care Team (Latest Contact Info) Description 04/25/2024 12:15 PM EST Laboratory Appointment Lab [place] [phone] Encounter of female for testing for genetic disease carrier status for procreative management; Encounter for supervision of normal first in first trimester Social History Tobacco Use [...] doctor or pharmacy? Never 04/15/2024 [facility] Utilities Answer Date Recorded In [...] any time in the past 12 m [facility], were you homeless or living in a group home (including now)? No 04/15/2024 IPV Inpatient [...] Info) Description 08/08/2024 9:00 AM EST Appointment [address] [address] Umu Saucedo RN 08/15/2024 10:45 AM EST TH Visit (TeleHealth) Obstetrics and Gynecology at [place] [phone] Dara Kelley MD [facility] [address] OBSTETRICS [place] [address] 11/25/2024 [place] [address] Dara Gonzalez MD [facility] [address] OBSTETRICS [place] [address] 07/12/2025 1:40 PM EST Office Visit Ophthalmology at [place] [phone] Bina Agrawal OD [facility] [place] [address] documented as of this encounter Procedures Procedure Name Priority Date/Time Associated Diagnosis Comments HORIZON CUSTOM Routine 04/25/2024 11:17 AM EST Encounter of female for testing for genetic disease carrier status for procreative management PANORAMA TEST Routine 04/25/2024 11:17 AM EST Encounter for supervision of normal first in first trimester documented in this encounter Results * PANORAMA [...] [facility] Trisomy 18 Risk Score Text (TRAIVS) <1/10,000 (<0.01%) 04/30/2024 1:57 AM EST REF [facility] Trisomy 21 Result Text (TRAVIS) Low Risk [...] EST REF [facility] Sex (TRAVIS) Male 4 1:57 AM EST REF [facility] Fraction (TRAVIS) 6.3% 04/15 1:57 AM EST REF [facility] Footnotes (TRAVIS) See Notes 4 1:57 AM EST REF [facility] Comment: Testing Methodology DNA isolated from maternal blood, which contains placental DNA, is amplified at specific loci using a targeted PCR assay and is sequenced using a high- throughput sequencer. fraction is determined using a proprietary algorithm incorporating data from single nucleotide polymorphism-based (SNP-based) next-generation sequencing [Pergamilind E et al. Obstet Gynecol. 2014 Jan;124(2 Pt 1):210-8]. If there is sufficient fraction, sequencing data is analyzed using a proprietary SNP- based algorithm to determine the copy number for chromosomes 13, 18, 21, X and Y. If ordered, specific microdeletions will be evaluated using similar methodology [Chandler TODD et al. Am J Obstet Gynecol. 2015 Mar;212(3):332.e1-9]. If the fraction is insufficient, signal enhancement [...] appropriate. Disclaimers This test was performed by [facility] [address], [place] [address] (CLIA ID [id number]). The performance characteristics of this test were developed by [facility] [facility]. This test has not been cleared or approved by the U.S. Food and Drug Administration (FDA). This laboratory is regulated under CLIA as qualified to perform high-complexity testing. ??2020 [employer]. All Rights Reserved. Please refer to the attached PDF report Reviewed By: Renan Alonso M.D., Ph.D., [facility], Senior Kettle Room Helper CLIA Welfare Director: Efe Loomis, Ph.D., [facility] IF THE ORDERING PROVIDER HAS QUESTIONS OR WISHES TO DISCUSS THE RESULTS, PLEASE CONTACT US AT [phone] #[phone]. Ask for the NIPT genetic counselor service operations manager. Trisomy 13 Age-Based Risk Text (TRAVIS) 06/20,347 (0.02%) 04/30/2024 1:57 AM EST REF [facility] Trisomy 18 Age-Based Risk Text (TRAVIS) 06/15,993 (0.05%) 04/30/2024 1:57 AM EST REF [facility] Trisomy 21 Age-Based Risk Text (TRAVIS) 1983 (0.1%) 04/30/2024 1:57 AM EST REF [facility] Monosomy X Age-Based Risk Text (TRAVIS) 1255 (0.39%) 04/30/2024 1:57 AM EST REF [facility] Blood VENOUS BLOOD SPECIMEN / Unknown Venipuncture / Unknown 04/25/2024 11:17 AM EST 04/25/2024 11:17 AM EST Dara Gonzalez MD LAB SEND OUT ORDERAB LES REF [facility] [address] [place] [address], [facility] * HORIZON CUSTOM (04/25/2024 11:17 AM EST) [facility] Panel Name (TRAVIS) Custom 05/11/2024 8:26 AM EST REF [facility] Report Summary (TRAVIS) Negative 05/11/2024 8:26 AM EST REF [facility] Comment: Negative for 2 out of 2 diseases. Diseases Screened: Cystic Fibrosis(CFTR) : NEGATIVE Spinal Muscular Atrophy(SMN1) : NEGATIVE Footnotes (TRAVIS) See Notes 8:26 AM EST REF [facility] Comment: Test performed by [facility] : [address] [place] [address] CLIA ID #[id number] CLIA Welfare Director: Efe Loomis, Ph.D., [facility] Please see the attached PDF for information regarding Conditions, Methodology, Disclaimers, and further information. Blood VENOUS BLOOD SPECIMEN / Unknown Venipuncture / Unknown 04/25/2024 11:17 AM EST 04/25/2024 11:17 AM EST Tori Perry MD LAB SEND OUT ORDERA BLES REF [facility] [address] documented in this encounter Visit Diagnoses Diagnosis Encounter of female for testing for genetic disease carrier status for procreative management Testing of female for genetic disease carrier status Encounter for supervision of normal first in first trimester Supervision of normal first documented in this encounter Care Teams [employer] Lieutenant Relationship Specialty Start Date End Date Edilma Cornejo MD [facility] [place] [address] PCP - General 12/05/22 documented as of this encounter
--- OUTSIDE RECORDS SUMMARY | 2024-07-29 00:22 | XMS_ITS | Encounter Summary ---
Author Organization [facility] Address [facility] [place] [address] Care Team Providers Care Art Appraiser Name Role Phone Edilma Cornejo MD Primary Care Provider [phone] Encounter Details Date Type Department Care Team (Late st Contact Info) Description 04/25/2024 Notes Only Obstetrics [place] [phone] Franky Sanchez Social History Tobacco Use Types [...] your doctor or pharmacy? Never 04/15/2024 [facility] Utilities Answer Date Recorded In the past 12 months has e [employer], gas, oil, or water company threatened to [...] time in the past [address] [facility], were you homeless or living in a usp (including now)? No 04/15/2024 IPV Inpatient Questions [...] encounter Progress Notes * Franky Sanchez - 04/25/2024 11:17 AM EST Images from the original note were not included. [facility] Outpatient Social Work Note Patient: DIEGO YOUSIF Relevant Information: Diego is a 19-year-old patient who is 9 weeks and 3 days . FOB (Roland) joined Diego in the appointment and they gave verbal consent for Franky Sanchez, CONDENSER TUBE TENDER student to be present. Diego and Roland share [...] receptive to scheduling an appointment with this automobile and property underwriter to talk through expectations and ways to [...] Pronouns: She/Her [facility] * Norah Lakhani MSW - 04/25/2024 11:17 AM EST Images from the original note were not included. I have reviewed patient chart and discussed this case with JUDY Christensen Student. I am in agreement with the plan of care as documented. JUDY Burgess Pronouns: She/Her Department [facility]etrics [facility] documented in this encounter Plan of Treatment Upcoming Encounters Date Type Department Care Team (Late st Contact Info) Description 08/08/2024 9:00 AM EST Appointment [facility] [address] [phone] Umu Saucedo, RN 08/15/2024 10:45 AM EST TH Visit (TeleHealth) Obstetrics [place] [address] Dara Kelley MD [facility] OBSTETRICS [place] [address] 11/25/2024 Hospital [place] [address] Dara Gonzalez MD [facility] OBSTETRICS [place] [address] 07/12/2025 1:40 PM EST Office Visit Ophthalmology at [facility] [place] [address] Bina Agrawal, OD [facility] [place] [address] documented as of this encounter Visit Diagnoses Not on filedocumented in this encounter Care Teams Art Appraiser Relationship Specialty Start Date End Date Edilma Cornejo MD [facility] [place] [address] PCP - General 12/05/22 documented as of this encounter
--- OUTSIDE RECORDS SUMMARY | 2024-07-29 00:22 | XMS_ITS | Encounter Summary ---
Author Organization [facility] [place] [address] Care Team Providers Care Custom Dressmaker Name Role Phone Edilma Cornejo MD Primary Care Provider [phone] Encounter Details Date Type Department Care Team (Latest Contact Info) Description 04/04/2024 12:50 PM EDT Laboratory Appointment Lab [address] [phone] Bleeding in early Social History Tobacco Use [...] Description 08/08/2024 9:00 AM EST Appointment [address] [phone] Umu Saucedo RN 08/15/2024 10:45 AM EST TH Visit (TeleHealth) Obstetrics [place] [address] Dara Kelley MD [facility] [place]STET[place] [address] 11/25/2024 Hospital Encounter Birthing [place] [phone] Dara Gonzalez MD [facility] OBSTETRICS [place] [address] 07/12/2025 1:40 PM EST Office Visit Ophthalmology at [place] [phone] Bina Agrawal OD [facility] [place] [address] documented as of this encounter Procedures Procedure Name Priority Date/Time Associated Diagnosis Comments BETA HCG, QUANTITATIVE Routine 04/04/2024 9:12 AM EDT Bleeding in early documented in this encounter Results * (ABNORMAL) Beta HCG, quantitative (04/04/2024 9:12 AM EDT) Beta Human Chorionic Gonadotropin, Quantitative 23,374(H) <5 mIU/mL 04/04/2024 11:02 AM EDT [facility] Comment: REFERENCE RANGES ??NON- FEMALE: ??Less than 5 mIU/mL ?? POSTMENOPAUSAL FEMALE: ??Less than 8 mIU/mL ? FEMALES Weeks of ? HCG range ??(mIU/mL) ? 3 weeks ?5.8 - 71.2 ? 4 weeks ?9.5 - 750 ? 5 weeks ? 217 - 1943 ? 6 weeks ? 158 - 31,795 [...] 56,451 ? 17 weeks ? 8,175 - 74,868 ? 18 weeks ? 8,099 - 13,176 ?? This result was generated using a [employer] Arielle immunoassay. ??Results obtained from other methods or manufacturers cannot be used interchangeably with this method. Blood VENOUS BLOOD SPECIMEN / Unknown Venipuncture / Unknown 04/04/2024 9:12 AM EDT 04/04/2024 9:13 AM EDT Chiquita Ellison SEWING MACHINE BOBBIN WINDER CHEMISTRY ORD ERABLES [facility] [place] [address] documented in this encounter Visit Diagnoses Diagnosis Bleeding in early Unspecified hemorrhage in early , unspecified as to episode of care documented in this encounter Care Teams Custom Dressmaker Relationship Specialty Start Date End Date Edilma Cornejo MD [facility] [address] PCP - General 12/05/22 documented as of this encounter
--- OUTSIDE RECORDS SUMMARY | 2024-07-29 00:22 | XMS_ITS | Encounter Summary ---
Author Organization [facility] Address [facility] [place] [address] Care Team Providers Care Soaking Pits Supervisor Name Role Phone Edilma Cornejo MD Primary Care Provider [phone] Encounter Details Date Type Department Care Team (Late st Contact Info) Description 04/25/2024 Patient Outreach Obstetrics [place] [phone] Isis Patel Social History Tobacco Use Types [...] from your doctor or pharmacy? Never 04/15/2024 [facility] Utilities Answer Date Recorded In the past 12 months has e [employer], gas, oil, or water company threatened to [...] any time in the past 12 m [facility], were you homeless or living in a prison (including now)? No 04/15/2024 IPV Inpatient Questions [...] Info) Description 08/08/2024 9:00 AM EST Appointment [address] [address] Umu Saucedo RN 08/15/2024 10:45 AM EST TH Visit (TeleHealth) Obstetrics [place] [address] Dara Kelley MD [facility] OBSTETRICS [place] [address] 11/25/2024 Hospital [place] [address] Dara Gonzalez MD [facility] OBSTETRICS [place] [address] 07/12/2025 1:40 PM EST Office [place] [address] Bina Agrawal OD [facility] [place] [place] [address] documented as of this encounter Visit Diagnoses Not on filedocumented in this encounter Care Teams Soaking Pits Supervisor Relationship Specialty Start Date End Date Edilma Cornejo MD [facility] [place] [address] PCP - General 12/05/22 documented as of this encounter
--- OUTSIDE RECORDS SUMMARY | 2024-07-29 00:22 | XMS_ITS | Encounter Summary ---
Author Organization [facility] Address [facility] [place] [address] Care Team Providers Care Ceiling Insulation Blower Name Role Phone Edilma Cornejo MD Primary Care Provider Encounter Details Date Type Department Care Team (Late st Contact Info) Description 02/01/2024 Telephone [facility] [address] [place] [phone] Andressa Dong, ALEXIS Social History Tobacco Use Types Packs/Day Years [...] encounter Miscellaneous Notes * Telephone Encounter - Andressa Dong, [employer] - 02/01/2024 8:47 AM EDT Urinary Tract Infection (UTI) Triage Protocol Criteria for Protocol: Patient is at least 18 years old, female who is calling with concern of urinary frequency, urinary pain, dysuria, urinary urgency, foul smelling urine or cloudy urine. Description of symptoms: Frequency, urgency, painful urination Does the patient have any of the following? [] Currently [] Vaginal discharge or vaginal pruritus [] Fever > 100.4 F or 38 C or chills [] Nausea or vomiting [] Gross hematuria [] New or changing flank pain or non-suprapubic abdominal pain [] More than 3 UTI's in last year or UTI in last 30 days [] Currently on an antibiotic [] Immunocompromised [] Poorly controlled diabetes mellitus with last Hgb A1c >8 [] pathology (kidney stones, stricture, stents, urinary diversion, polycystic kidneys or urinaryself-catherizations) [] surgery in last 30 days [] Renal failure with last GFR <= 30 [] Currently on coumadin [] Yes. OUTCOME 1: Schedule patient for Provider appointment in next 24 hours. Patient does not have any conditions listed in Outcome 1? [x] Yes. OUTCOME 2: Patient likely has uncomplicated bacterial urinary tract infection. Treatment: (Place medication order per protocol using PCP or covering provider as authorizing provider. If a baak-vq-[id number] interaction warning appears when prescribing medication, medication must be pended to provider [x]Review medication and allergy lists. [x]Is the patient and/or ? No [x] If not allergic to nitrofurantoin and not , Nitrofurantoin (Macrobid) 100 mg capsule Dose: 100mg Route: oral Frequency: BID (twice daily) Duration: 5 days Dispense: 10 tablets Refill: 0 [] If not allergic to cephalosporins, Cephalexin (Keflex) 500 mg capsule Dose: 500mg Route: oral Frequency: QID (four times daily) Duration: 5 days Dispense: 20 tablets Refill: 0 [] Or If not allergic to sulfa or Bactrim: Sulfamethoxazole-Trimethoprim DS (Bactrim DS) 800-160 mgtablet. Dose: SMX 800mg-WQG519 mg Route: oral Frequency: BID (twice daily) Duration: 3 days Dispense: 6 tablets Refill: 0 [] If allergic to all choices, consult provider (consider fosfomycin) Education: If taking oral contraceptive medication, advise patient to use additional method of control for the first week of the next cycle. If patient on Coumadin, advise patient that the anticoagulation clinic will be notified of this treatment. Their anticoagulation nurse will contact them if they need to change their management. Follow-up: Patient should call back if no improvement in 48 hours, if further symptoms develop (fever, nausea, vomiting), or if additional questions or concerns [] OUTCOME 3: If patient does not meet Outcome 1-2, consult provider. Approved by: [facility] Clinical Policy Review Committee 09/2021 (#[id number]) documented in this encounter Plan of Treatment Upcoming Encounters Date Type Department Care Team (Late st Contact Info) Description 08/08/2024 9:00 AM EST Appointment [address] [phone] Umu Saucedo RN 08/15/2024 10:45 AM EST TH Visit (TeleHealth) Obstetrics and Gynecology at [place] [phone] Dara Kelley MD [facility] [place] [address] 11/25/2024 Hospital Encounter [place] [phone] Dara Gonzalez MD [facility] OBSTETRICS [place] [address] 07/12/2025 1:40 PM EST Office Visit Ophthalmology at [address] Bina Agrawal OD [facility] [place] [address] documented as of this encounter Results * (ABNORMAL) Urine culture (02/02/2024 5:34 PM EDT) Urine Culture 10,000-49,000 cfu/ml Escherichia coli(A) VITEK 2 METHOD 02/04/2024 7:48 AM EDT [facility] Urine URINE SPECIMEN OBTAINED BY [...] ug/ml: Susceptible Earle Cade MD MICROBIOLOGY - GENE [facility] ORDERABLES [facility] [place] [address] * (ABNORMAL) Urinalysis Dipstick (02/02/2024 5:34 PM EDT) Glucose, Urine Dipstick Negative Negative 02/02/2024 5:50 PM EDT [facility] Protein, Urine Dipstick Negative Negative 02/02/2024 5:50 PM EDT [facility] Bilirubin, Urine Dipstick Negative Negative 02/02/2024 5:50 PM EDT [facility] Comment:Clinical correlation required for positive Urine Bilirubin results as false positive may occur with some drugs and drug related products. If a false positive is suspected a serum total bilirubin should be considered if clinically indicated. Urobilinogen, Urine Dipstick Normal Normal, 0.2 mg/dL, 1.0 mg/dL 02/02/2024 5:50 PM EDT [facility] pH, Urine (dipstick) 7.0 5.0 - 8.0 02/02/2024 5:50 PM EDT [facility] Blood, Urine Dipstick Negative Negative 02/02/2024 5:50 PM EDT [facility] Ketone, Urine Dipstick Negative Negative 02/02/2024 5:50 PM EDT [facility] Nitrite, Urine Dipstick Negative Negative 02/02/2024 5:50 PM EDT [facility] Leukocytes, Urine Dipstick Trace(A) Negative 02/02/2024 5:50 PM EDT [facility] Specific [place] Urine Automated 1.012 1.005 - 1.030 02/02/2024 5:50 PM EDT [facility] Appearance, Urine Dipstick Clear Clear 02/02/2024 5:50 PM EDT [facility] Color, Urine Dipstick Yellow Yellow, Dark Yellow 02/02/2024 5:50 PM EDT [facility] Urine URINE SPECIMEN OBTAINED BY CLEAN CATCH PROCEDURE / Unknown Non Blood Collection / Unknown 02/02/2024 5:34 PM EDT 02/02/2024 5:34 PM EDT Earle Cade MD URINE ORDERABLES [facility] [place] [address] documented in this encounter Visit Diagnoses Diagnosis Dysuria documented in this encounter Care Teams Ceiling Insulation Blower Relationship Specialty Start Date End Date Edilma Cornejo MD [facility] [place] [address] PCP - General 12/05/22 documented as of this encounter
--- OUTSIDE RECORDS SUMMARY | 2024-07-29 00:22 | XMS_ITS | Encounter Summary ---
Author Organization [facility] [address] Care Team Providers Care School Office Manager Name Role Phone Edilma Cornejo MD Primary Care Provider [phone] Encounter Details Date Type Department Care Team (Late st Contact Info) Description 04/01/2024 Telephone Obstetrics [place] [phone] Halle Marquez, RN Social History Tobacco Use Types Packs/Day Years Used Date Smoking Tobacco: Never Passive Smoke Exposure: Yes Smokeless Tobacco: Never Comments:Patient vapes on oc casion (rechargeable cartridge) Alcohol Use Standard Drinks/Week Comments No 0 (1 standard drink = 0.6 oz pur e alcohol) [facility] Inpatient Questions Answer Date Recorded [...] Telephone Encounter - Halle Marquez RN - 04/01/2024 8:19 AM EDT Patient Diego Mahmood 19 y.o. called reporting vaginal bleeding that started last night. Her LMP was 02/19/24. She reports she is 6 weeks . This is confirmed by positive urine test. She describes vaginal bleeding as vaginal bleeding: SPOTTING - pinkish or brownish discharge; does not fill panti-liner or pad. She is not not feeling weak or lightheaded. She is not experiencing abdominal pain and/or cramps. PATIENT DOES MEET First Trimester Bleeding Per Protocol criteria ( Protocol #88630) with NO PREVIOUS ULTRASOUND. The following orders were placed: Transvaginal Ultrasound within 72 hours, office visit with Provider on same day to review results Serial HCGQ, 48 hours apart Blood Type/Antibody Screen The patient was given the following instructions: Patient counseled on risk of miscarriage and ectopic . Patient educated to call office back or present urgently for evaluation of excessive bleeding and/or new onset/worsening moderate to severe pain. Patient completes teach back of these precautions. Provider Dr. Nagel was notified. The patient understands and agrees with this plan. documented in this encounter Plan of Treatment Upcoming Encounters Date Type Department Care Team (Late st Contact Info) Description 08/08/2024 9:00 AM EST Appointment [address] [phone] Umu Saucedo RN 08/15/2024 10:45 AM EST TH Visit (TeleHealth) Obstetrics [place] [phone] Dara Kelley MD [facility] OBSTETRICS [place] [address] 11/25/2024 Hospital [place] [phone] Dara Gonzalez MD [facility] OBSTETRICS [place] [address] 07/12/2025 1:40 PM EST Office Visit Ophthalmology at [facility] [place] [address] Nghia Bina, OD [facility] [place] [address] documented as of this encounter Results * US OB Viability Transvaginal (04/18/2024 9:43 AM EST) WORKSTATION ID [id number] RAD Anatomical Region Laterality Modality Pelvis, Abdomen [...] who have questions, please contact the health personal care aide that requested your imaging first. ? Harris Martinez Physician Electronically Signed Final Report ?? 04/18/2024 10:01 am Narrative 04/18/2024 10:02 AM EST OBSTETRICS REPORT ? (Signed Final 04/18/2024 10:01 am) PATIENT INFO: ID #: ? [id number] ?: ??[birth year] (19 yrs)(F) Name: ? DIEGO MACKENZIE ? Visit Date: 04/18/2024 09:41 am ? EBNJA PERFORMED BY: Attending: ?Harris Martinez MD Performed By: ? Will LINCOLN, Celine Li Referred By: ?PATRICIA ROBB Location: ? [place] SERVICE(S) PROVIDED: UOBTV - 1st Trimester-Transvaginal - [id number] INDICATIONS: 8 weeks gestation of ?Z3A.08 bleeding [...] 04/18/2024 10:01 am) PATIENT INFO: ID #: [id number] : [birth year] (19 yrs)(F) Name: DIEGO MACKENZIE Visit Date: 04/18/2024 09:41 am MAHMOOD PERFORMED BY: Attending: Harris Martinez MD Performed By: Celine Solis RDMS Referred By: PATRICIA ROBB Location: [place] SERVICE(S) PROVIDED: UOBTV - 1st Trimester-Transvaginal - [id number] INDICATIONS: 8 weeks gestation of Z3A.08 bleeding [...] who have questions, please contact the health personal care aide that requested your imaging first. Harris Martinez, Physician Electronically Signed Final Report 04/18/2024 10:01 am Patricia Robb APRN IMG US OB ORD ERABLES * (ABNORMAL) Beta HCG, quantitative (04/04/2024 9:12 AM EDT) [facility] Beta Human Chorionic Gonadotropin, Quantitative 23,374(H) <5 mIU/mL 04/04/2024 11:02 AM EDT [facility] Comment: REFERENCE RANGES ??NON- FEMALE: ??Less than 5 mIU/mL ?? POSTMENOPAUSAL FEMALE: ??Less than 8 mIU/mL ? FEMALES Weeks of ? HCG range ??(mIU/mL) ? 3 weeks ?5.8 - 71.2 ? 4 weeks ?9.5 - 750 ? 5 weeks ? 217 - 6375 ? 6 weeks ? 158 - 31,795 [...] 56,451 ? 17 weeks ? 8,175 - 57,868 ? 18 weeks ? 8,099 - 37,176 ?? This result was generated using a Cameron Arielle immunoassay. ??Results obtained from other methods or manufacturers cannot be used interchangeably with this method. Blood VENOUS BLOOD SPECIMEN / Unknown Venipuncture / Unknown 04/04/2024 9:12 AM EDT 04/04/2024 9:13 AM EDT Patricia Robb APRN CHEMISTRY ORD ERABLES [facility] [place] [address] * Type and screen ([facility]) (04/01/2024 12:01 PM EDT) [facility] ABORH Type A POSITIVE 04/01/2024 3:19 PM EDT [facility] PATIENT HISTORY Found 04/01/2024 3:19 PM EDT [facility] Expires at 2359 on: 04-01-2024 04/01/2024 3:19 PM EDT [facility] ANTIBODY SCREEN AUTOMATED Negative 04/01/2024 3:19 PM EDT [facility] T&S only valid at [facility] 04/01/2024 3:19 PM EDT [facility] Blood VENOUS BLOOD SPECIMEN / Unknown Venipuncture / Unknown 04/01/2024 12:01 PM EDT 04/01/2024 12:01 PM EDT Narrative [facility] - 04/01/2024 3:19 PM EDT This Type and Screen result is only valid at the [facility] Patricia Robb APRN BLOOD BANK LA B ORDERABLES Performing Organization Address City/State/[facility] Co de Phone Number [facility] [place] [place] [address] * (ABNORMAL) Beta HCG, quantitative (04/01/2024 12:01 PM EDT) [facility] Beta Human Chorionic Gonadotropin, Quantitative 16,731(H) <5 mIU/mL 04/01/2024 1:20 PM EDT [facility] Comment: REFERENCE RANGES ??NON- FEMALE: ??Less than 5 mIU/mL ?? POSTMENOPAUSAL FEMALE: ??Less than 8 mIU/mL ? FEMALES Weeks of ? HCG range ??(mIU/mL) ? 3 weeks ?5.8 - 71.2 ? 4 weeks ?9.5 - 750 ? 5 weeks ? 217 - 8483 ? 6 weeks ? 158 - 31,795 [...] 56,451 ? 17 weeks ? 8,175 - 80,868 ? 18 weeks ? 8,099 - 98,176 ?? This result was generated using a Cameron Arielle immunoassay. ??Results obtained from other methods or manufacturers cannot be used interchangeably with this method. Blood VENOUS BLOOD SPECIMEN / Unknown Venipuncture / Unknown 04/01/2024 12:01 PM EDT 04/01/2024 12:01 PM EDT Patricia Robb APRN CHEMISTRY ORD ERABLES [facility] [place] [address] documented in this encounter Visit Diagnoses Diagnosis Bleeding in early Unspecified hemorrhage in early , unspecified as to episode of care Bleeding in early Unspecified hemorrhage in early , unspecified as to episode of care documented in this encounter Care Teams School Office Manager Relationship Specialty Start Date End Date Edilma Cornejo MD [facility] [place] [address] PCP - General 12/05/22 documented as of this encounter
--- OUTSIDE RECORDS SUMMARY | 2024-07-29 00:23 | XMS_ITS | Encounter Summary ---
Author Organization [facility] Address [facility] [place] [address] Care Team Providers Care Addiction Treatment Counselor Name Role Phone Edilma Cornejo MD Primary Care Provider [phone] Reason for Visit * Reason Comments Contraception * Consultation (Urgent) - Closed Specialty Diagnoses / Procedures Referred By Contac t Referred To Contact Obstetrics and Gynecology Diagnoses Encounter for routine adult health examination without abnormal findings Edilma Cornejo MD [facility] [place] [address] Edilma Patel, PA [address] [facility] OBSTET[facility] [place] [address] Referral ID Status Reason Start Date Expiration Date V isits Requested Visits Authorized [id number] Closed Consult, Test & Treat 07/22/2023 07/21/2024 1 1 Encounter Details Date Type Department Care Team (Latest Contact Info) Description 07/24/2023 10:00 AM EST Office Visit [facility] [address] [place] [address] Edilma Patel, PA 10 [facility]STET[facility] [place] [address] Encounter for insertion of intrauterine contraceptive device; Encounter for IUD insertion Social History Tobacco Use Types Packs/Day Years [...] Sign Reading Time Taken Comments Blood Pressure 118/68 07/24/2023 9:33 AM EST Pulse 84 07/24/2023 9:33 AM EST Temperature - - Respiratory Rate - - Oxygen Saturation 99% 07/24/2023 9:33 AM EST Inhaled Oxygen Concentration - - Weight 54.9 kg (121 lb) 07/24/2023 9:33 AM EST Height 149.9 cm (4' 11) 07/24/2023 9:33 AM EST Body Mass Index 24.44 07/24/2023 9:33 AM EST documented in this encounter Patient Instructions * Patient Instructions* Sonja Lujan CCMA - 07/24/2023 10:00 AM EST You received a Liletta IUD today. The Liletta IUD releases a constant, small amount of a hormone called progesterone. This IUD is FDA approved for 8 years to provide effective control, but can be removed at any time. The IUD is very good at preventing . There is a small risk of ectopic . If you have a positive test or suspect , please call your provider immediately. Most women experience some cramping and spotting for a few days after the IUD is inserted. Ibuprofen or Tylenol can be used as needed for relief. This is normal. Heavy bleeding, severe cramping or fever are abnormal and you should call your provider if this happens. Many women have irregular bleeding for several months after the Liletta is inserted. This typically will decrease over time. Many women will stop having periods with the Liletta IUD. This is not harmful. The IUD does not prevent sexually transmitted infections. If you are with a new partner, it is important to that condoms are used for STD prevention documented in this encounter Progress Notes * Edilma Patel PA - 07/24/2023 10:00 AM EST IUD Insertion: CC: Liletta IUD insertion HPI: Ely Mahmood is 18 y.o. who present for insertion of IUD, specifically theLiletta device. She requests insertion of the IUD for contraception and we have discussed alternative methods. Had been using BC pills until about 3 months ago. Currently sexually active - 1 partner, but multiple partners since last visit. Risk and benefits of the procedure were discussed. Specifically, the patient was made aware of the risk of pain or discomfort during the procedure, bleeding, infection, uterine perforation with possible damage to surrounding structures, requiring laparoscopy/surgery to remove IUD and/or repair injuries. Discussed expected change in bleeding pattern and cramping relieved by ibuprofen. The IUD can become malpositioned or can be expelled, and/or removal can be complicated and require ultrasound orsedated procedures. She was also counseled of a <1% failure () rate, and in the rare case that she becomes with an IUD there is an increased risk of ectopic , so she should seek prompt medical attention if is suspected. Verbal and written consent were obtained. Patient is reasonably certain to NOT be according to CDC guidelines: is less than or equal to 7 days after the start of normal menses Objective Patient Vitals for the past 24 hrs: Pulse BP SpO2 07/24/23 0933 84 118/68 99 % Serum test obtained 07/22/2023 and confirmed negative, not sexually active since then. GC/Chlamydia obtained today:no screened negative 07/22/2023 A bimanual exam was performed confirming a anteverted uterus. A speculum was placed in the vagina for adequate visualization of the cervix. The cervix was prepped with betadine x 3. The anterior cervix was then grasped with a single tooth tenaculum. The uterus was sounded without difficulty to 7 cm. The IUD was engaged in its device and inserted into the intrauterine cavity according to the construction project administrator's instructions. The strings were trimmed to 3 cm and the tenaculum removed. Adequate hemostasis was noted. The patient tolerated the procedure well. EBL was minimal. Lot # [id number] Exp: 09/2026 A/P: Ely Mahmood is 18 y.o. who is s/p insertion Liletta IUD. The patient was advised to use a back-up method of contraception for 7 days. Counseled on use of condoms to prevent STI. The patient was advised to return for follow - up if: - Think you are - Have pelvic pain, abdominal pain, or pain during sex - Have unusual vaginal discharge or genital sores - Have unexplained fever, flu-like symptoms or chills - Might be exposed to sexually transmitted infections (STIs) - Are concerned that IUD may have been expelled (came out) - Cannot feel IUD threads - Have severe vaginal bleeding or bleeding that concerns you ABIGAIL Correa 07/24/2023 documented in this encounter Plan of Treatment Upcoming Encounters Date Type Department Care Team (Late st Contact Info) Description 08/08/2024 9:00 AM EST Appointment [address] [phone] Umu Saucedo RN 08/15/2024 10:45 AM EST TH Visit (TeleHealth) Obstetrics [place] [address] Dara Kelley MD [facility] [place]ST[place] [address] 11/25/2024 [place] [address] Dara Gonzalez MD [facility] [place]ST[place] [address] 07/12/2025 1:40 PM EST Office Visit Ophthalmology at [facility] [place] [address] Bina Agrawal, OD [facility] [place] [address] documented as of this encounter Procedures Procedure Name Priority Date/Time Associated Diagnosis Comments AMB REFERRAL TO OB-DEGREASING SOLUTION RECLAIMER Urgent 10:35 AM EST Encounter for routine adult health examination without abnormal findings documented in this encounter Visit Diagnoses Diagnosis Encounter for insertion of intrauterine contraceptive device Encounter for IUD insertion Encounter for insertion of intrauterine contraceptive device documented in this encounter Administered Medications Inactive Administered Medications - up to 3 most recent administrations Medication Order MAR Action Action Date Dose Rate Site levonorgestreL (Liletta) 20.4 mcg/24 hr intra-uterine device (8 year) 1 Intra Uterine Device, Intrauterine, ONCE, 1 dose, On Thu07/24/23 at 1100, Routine Inserted 07/24/2023 10:34 AM EST 1 Intra Uterine Device documented in this encounter Care Teams Addiction Treatment Counselor Relationship Specialty Start Date End Date Edilma Cornejo MD [facility] [place] [address] PCP - General 12/05/22 documented as of this encounter
--- OUTSIDE RECORDS SUMMARY | 2024-07-29 00:23 | XMS_ITS | Encounter Summary ---
Author Organization [facility] Address [facility] [place] [address] Care Team Providers Care General Scrap Worker Name Role Phone Edilma Cornejo MD Primary Care Provider [phone] Reason for Visit * Reason Comments Follow-up IUD Check Encounter Details Date Type Department Care Team (Late st Contact Info) Description 09/11/2023 10:30 AM EDT [facility] [address] [place] [address] Edilma Patel, PA [address] OBST[facility] [place] [address] IUD check up; Acute pelvic pain, female; Encounter for IUD removal Social History Tobacco Use Types Packs/Day Years [...] Sign Reading Time Taken Comments Blood Pressure 116/68 09/11/2023 10:16 AM EDT Pulse - - Temperature - - Respiratory Rate - - Oxygen Saturation - - Inhaled Oxygen Concentration - - Weight 56.2 kg (124 lb) 09/11/2023 10:16 AM EDT Height - - Body Mass Index 25.04 08/20/2023 3:38 PM EST documented in this encounter Progress Notes * Edilma Patel PA - 09/11/2023 10:30 AM EDT Ely is a 18 y.o. female who presents today for IUD check. IUD Type: Liletta Insertion date: 07/24/2023 The following bothersome symptoms are noted: spotting most days and intermittent cramping many days, usually tolerable but will have occasional intense cramps 8/10 pain. Uses heat which hasn't helped. Does not like to take Tylenol or ibuprofen so hasn't tried these. She endorses bleeding during andafter intercourse as well - light. Bleeding pattern: ongoing spotting, 1 day of period-like flow Sexually active with 1 partner, not a new partner since her last STI screen on 08/20/2023, neg for GC/Chlamydia Review of Systems EXAM: BP 116/68 Wt 56.2 kg (124 lb) LMP 07/21/2023 (Exact Date) Comment: pt reports spotting BMI 25.04 kg/m?? External genetalia: normal Vagina: normal mucosa, normal discharge, no lesions Cervix: normal os with string protruding about 3 cm. Uterus: normal size, mobile, nontender IMPRESSION: 18 y.o. female with: 1) s/p IUD removal 2) intermittent pelvic pain We reviewed normal exam today, that with her ongoing cramping I would recommend US to confirm her IUD is in good position. She is lower risk for infection given recent negative STI screen and no new partner. Ely at this point said she would like it her IUD removed, feels like she has given it a try and is unhappy with it. Reviewed options of removal today versus US to confirm good position and if not malpositioned giving it a try for another 1-2 months to see if symptoms improve. She agreed toplan to US and keep IUD for one more month to see if spotting and pain improves while she and her fiance look for their own place. However then reversed decision, saying she would just like it removed today. We had a long discussion about pros and cons - she already has IUD placed, highly effectivebirth control while she and her fiancee look for their own place. In the end she decided she would like it removed, feels very certain about this. IUD removed today. We discussed alternative contraception and she plans to use fertility awareness and condoms. She and her fiance would like to have a baby. I recommended at least using condoms consistently for awhileuntil menstrual cycle reestablishes. Recommend returning if pelvic pain persists or worsens. Ely was seen today for follow-up . Diagnoses and all orders for this visit: IUD check up Acute pelvic pain, female Encounter for IUD removal Return if symptoms persist or worsen. ABIGAIL Correa 09/11/2023 documented in this encounter Plan of Treatment Upcoming Encounters Date Type Department Care Team (Late st Contact Info) Description 08/08/2024 9:00 AM EST Appointment [address] [phone] Umu Saucedo RN 08/15/2024 10:45 AM EST TH Visit (TeleHealth) [place]stetric[place] [address] Dara Kelley MD [facility] [address] OBST[place] [address] 11/25/2024 Hospital [place] [address] Dara Gonzalez MD [facility] OBST[place] [address] 07/12/2025 1:40 PM EST Office Visit Ophthalmology at [facility] [place] [phone] Bina Agrawal, JONELLE [facility] [place] [address] documented as of this encounter Visit Diagnoses Diagnosis IUD check up Surveillance of previously prescribed intrauterine contraceptive device Acute pelvic pain, female Unspecified symptom associated with female genital organs Encounter for IUD removal Encounter for removal of intrauterine contraceptive device documented in this encounter Care Teams General Scrap Worker Relationship Specialty Start Date End Date Edilma Cornejo MD [facility] [place] [address] PCP - General 12/05/22 documented as of this encounter
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
--- OUTSIDE RECORDS SUMMARY | 2024-07-29 00:23 | XMS_ITS | Encounter Summary ---
Author Organization [facility] Address [facility] [place] [address] Care Team Providers Care Front Desk Lead Name Role Phone Edilma Cornejo MD Primary Care Provider [phone] Encounter Details Date Type Department Care Team (Latest Contact Info) Description 07/24/2023 Travel Social History Tobacco Use Types Packs/Day [...] Info) Description 08/08/2024 9:00 AM EST Appointment [address] [address] Umu Saucedo RN 08/15/2024 10:45 AM EST TH Visit (TeleHealth) [place]stetrics [place] [address] Dara Kelley MD [facility] OBSTETRICS [place] [address] 11/25/2024 Hospital Encounter Birthing [place] [phone] Dara Gonzalez MD [facility] OBSTETRICS [place] [address] 07/12/2025 1:40 PM EST Office Visit Ophthalmology at [place] [address] Bina Agrawal OD [facility] [place] [address] documented as of this encounter Visit Diagnoses Not on filedocumented in this encounter Care Teams Front Desk Lead Relationship Specialty Start Date End Date Edilma Cornejo MD [facility] [place] [address] PCP - General 12/05/22 documented as of this encounter
--- OUTSIDE RECORDS SUMMARY | 2024-07-29 00:23 | XMS_ITS | Encounter Summary ---
Author Organization [facility] Address [facility] [place] [address] Care Team Providers Care Machine Guide Base Winder Name Role Phone Edilma Cornejo MD Primary Care Provider [phone] Encounter Details Date Type Department Care Team (Late st Contact Info) Description 10/04/2023 Telephone Ophthalmology [facility] [place] [phone] Bina Agrawal OD [facility] [place] [address] Social History Tobacco Use Types Packs/Day Years [...] encounter Miscellaneous Notes * Telephone Encounter - Zainab Briscoe - 10/21/2023 12:24 PM EDT scheduled * Telephone Encounter - Jonn Dinh - 10/13/2023 9:45 AM EDT Made 1st call to patient. Left Message. Will send letter. Return in about 1 year (around 06/26/2024) for CEE. Please schedule to first avail within the time frame * Telephone Encounter - Jonn Dinh - 10/04/2023 10:37 AM EDT Made 1st call to patient. Left Message. Will contact in one week. Return in about 1 year (around 06/26/2024) for CEE. Please schedule to first avail within the time frame. documented in this encounter Plan of Treatment Upcoming Encounters Date Type Department Care Team (Late st Contact Info) Description 08/08/2024 9:00 AM EST Appointment [address] [phone] Umu Saucedo RN 08/15/2024 10:45 AM EST TH Visit (TeleHealth) Obstetrics [place] [phone] Dara Kelley MD [facility] OBSTETRICS [place] [address] 11/25/2024 [place] [phone] Dara Gonzalez MD [facility] OBSTETRICS [place] [address] 07/12/2025 1:40 PM EST Office Visit Ophthalmology at [facility] [place] [phone] Bina Agrawal, OD [facility] [place] [address] documented as of this encounter Visit Diagnoses Not on filedocumented in this encounter Care Teams Machine Guide Base Winder Relationship Specialty Start Date End Date Edilma Cornejo MD [facility] [place] [address] PCP - General 12/05/22 documented as of this encounter
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
--- OUTSIDE RECORDS SUMMARY | 2024-07-29 00:23 | XMS_ITS | Encounter Summary ---
Author Organization [facility] Address [facility] [place] [address] Care Team Providers Care Television Engineering Teacher Name Role Phone Edilma Cornejo MD Primary Care Provider [phone] Encounter Details Date Type Department Care Team (Latest Contact Info) Description 06/03/2023 1:00 PM EST TH Visit (TeleHealth) Pediatrics at [address] [phone] Maureen Clifton [facility] [place] [address] Generalized anxiety disorder Social History Tobacco Use Types Packs/Day Years Used Date Smoking Tobacco: Never Passive Smoke Exposure: Yes Smokeless Tobacco: Never Comments:Patient vapes on oc casion (rechargeable cartridge) Alcohol Use Standard Drinks/Week Comments No 0 (1 standard drink = 0.6 oz pur e alcohol) Sex and Gender Information Value Date Recorded Sex Assigned at Female 07/24/2023 9:35 AM EST Gender Identity Female 07/24/2023 9:35 AM EST Sexual Orientation Straight 07/24/2023 9: 35 AM EST documented as of this encounter Progress Notes * Maureen Clifton [facility] - 06/03/2023 1:00 PM EST Images from the original note were not included. PEDIATRIC COLLABORATIVE CARE THERAPY PROGRESS NOTE Patient Name: Ely Mahmood Referral Date: 05/05/23 Intervention Session #: 2 Time Spent: 50 Attendees: Ely Mahmood Visit Location: Telehealth Chief Complaint/Diagnosis: Anxiety Therapy Goals: Reduce anxiety as rated by self/parent on PAVITHRA 7. To increase the use of skills to increase problem solving as evidenced by learning and using CBT skills 75% of the time when triggered as endorsed by patient. Treatment Modality: CBT Subjective: Ely presented to the session and was engaged. She had a new hair style (short and black with red bangs). She endorsed this is a big change and makes her feel more confident. She notes that she is also in a new relationship and wants to start with good boundaries, communication and shared expectations. Discussed how to set up boundaries. Resumed the focus from last week about setting boundaries in family relationships as well. She notes that at times her grandmother will ask her to do chores and she doesn't have the motivation to do them. Discussed why and she was able to identifythat she gets a lot of criticism about how she is doing them. Discussed solutions and assisted her in soliciting options and making a choice. She was able to identify a few plans for setting boundaries in multiple relationships . Discussed safety and she reports passive suicidal thoughts with no current intent or plan. Objective: Ely arrived to session adequately groomed and appropriately dressed for the weather. Ely was engaged. Ely was oriented to person, place, and time and content of conversation reflected aclear and linear thought process. Last 4 PAVITHRA 7 Scores: 02/03/2023 05/01/2023 05/18/2023 05/27/2023 PAVITHRA-7 Score Only - All PAVITHRA-7 Score (Pt Questionnaire) 7 (Mild Anxiety) 14 (Moderate Anxiety) 12 (Moderate Anxiety) 13 (Moderate Anxiety) PAVITHRA-7 Score 14 12 8 No data to display No data to display Assessment: Ely presents to brief behavioral therapy in primary care to address concerns related to anxiety. Depressed mood second to anxiety and unresolved stressors. Chronic stressful situations interfere with her ability to build continuous positive outcomes. She struggles with sleep, appetite,motivation and energy. She describes feeling numb a lot of the time and ruminating on losses. Difficulties negatively impact home functioning. To address presenting concerns, Ely will benefit from 6-8 sessions of cognitive-behavioral skills for anxiety. Plan: Today's session was an individual CBT session. Patient was receptive to therapeutic activities. Therapeutic activities delivered during today's appointment: Therapeutic Activities: Details/Summary: [x] Education about anxiety/avoidance [] Develop a fear hierarchy [x] Exposure practice Identify what she is avoiding any what thoughts are behind it. Approach not avoid. Set boundaries. [] Relaxation training [] Worry outcome journal [...] Info) Description 08/08/2024 9:00 AM EST Appointment [address] [place] [address] [address] Umu Saucedo RN 08/15/2024 10:45 AM EST TH Visit (TeleHealth) Obstetrics and Gynecology at [place] [phone] Dara Kelley MD [facility] OBST[place] [address] 11/25/2024 Hospital Encounter [place]thing [place] [phone] Dara Gonzalez MD [facility] OBSTETRICS [place] [address] 07/12/2025 1:40 PM EST Office Visit Ophthalmology at [place] [phone] Bina Agrawal OD [facility] OPHTHALMOLOGY [place], [place] [phone] documented as of this encounter Visit Diagnoses Diagnosis Generalized anxiety disorder documented in this encounter Care Teams Television Engineering Teacher Relationship Specialty Start Date End Date Edilma Cornejo MD [facility] [place] [address] PCP - General 12/05/22 documented as of this encounter
--- OUTSIDE RECORDS SUMMARY | 2024-07-29 00:23 | XMS_ITS | Encounter Summary ---
Author Organization [facility] Address [facility] [place] [address] Care Team Providers Care Case Mgr Name Role Phone Edilma Cornejo MD Primary Care Provider [phone] Encounter Details Date Type Department Care Team (Late st Contact Info) Description 06/18/2023 2:30 PM EST Office Visit Pediatrics at [address] [address] Maureen Clifton, [facility] DR [place] [address] Generalized anxiety disorder Social History Tobacco Use Types Packs/Day Years Used Date Smoking Tobacco: Never Passive Smoke Exposure: Yes Smokeless Tobacco: Never Comments:Patient vapes on oc casion (rechargeable cartridge) Alcohol Use Standard Drinks/Week Comments No 0 (1 standard drink = 0.6 oz pur e alcohol) [facility] In[facility] Questions Answer Date Recorded Does [...] this encounter Progress Notes * Maureen Clifton, [facility] - 06/18/2023 2:30 PM EST Images from the original note were not included. PEDIATRIC COLLABORATIVE CARE THERAPY PROGRESS NOTE Patient Name: Ely Mahmood Referral Date: 05/05/23 Intervention Session #: 3 Time Spent: 30 Attendees: Ely Mahmood Visit Location: In person Chief Complaint/Diagnosis: Anxiety Therapy Goals: Reduce anxiety as rated by self/parent on PAVITHRA 7. To increase the use of skills to increase problem solving as evidenced by learning and using CBT skills 75% of the time when triggered as endorsed by patient. Treatment Modality: CBT Subjective: Ely presented late to the session following donating blood elsewhere in the hospital. She reports that she has not approached setting boundaries with her grandmother. Discussed her barrier thoughts and focused on her goals. She identifies that her new relationship is going well and they are trying to get . Discussed her world view ideas which contribute to this conclusion. Focused on pros and cons, problem solving and transparency about how her current thoughts are affectedby her experiences in childhood. Ely was thoughtful and explored new skills. Discussed safety and she denied any suicidal ideation. Objective: Ely arrived to session adequately groomed and appropriately dressed for the weather. Ely was engaged. Ely had just given blood and reported feeling better after a period of time feelingnauseous and dizzy. She had drink and food. Last 4 PAVITHRA 7 Scores: 05/01/2023 05/18/2023 05/27/2023 06/18/2023 PAVITHRA-7 Score Only - All PAVITHRA-7 Score (Pt Questionnaire) 14 (Moderate Anxiety) 12 (Moderate Anxiety) 13 (Moderate Anxiety) 10(Moderate Anxiety) PAVITHRA-7 Score 14 12 8 6 No data to display No data to [...] Description 08/08/2024 9:00 AM EST Appointment [address] [address] Umu Saucedo RN 08/15/2024 10:45 AM EST TH Visit (TeleHealth) Obstetrics and Gynecology at [place] [phone] Dara Kelley MD [facility] OBSTETRICS [place] [address] 11/25/2024 Hospital [place] [address] Dara Gonzalez MD [facility] OBSTETRICS [place] [address] 07/12/2025 1:40 PM EST Office Visit Ophthalmology at [place] [phone] Bina Agrawal OD [facility] [place] [address] documented as of this encounter Visit Diagnoses Diagnosis Generalized anxiety disorder documented in this encounter Care Teams Case Mgr Relationship Specialty Start Date End Date Edilma Cornejo MD [facility] [place] [address] PCP - General 12/05/22 documented as of this encounter
--- OUTSIDE RECORDS SUMMARY | 2024-07-29 00:23 | XMS_ITS | Encounter Summary ---
Author Organization [facility] Address [facility] [place] [address] Care Team Providers Care Medical Assistant Per Diem Name Role Phone Edilma Cornejo MD Primary Care Provider [phone] Reason for Visit * Reason Comments Medication Check Encounter Details Date Type Department Care Team (Late st Contact Info) Description 07/03/2023 2:00 PM EST Office Visit Pediatrics at [address] [address] Tangela Rodrigues MD [facility] [place] [address] Unprotected sex; Generalized anxiety disorder; Depression, unspecified depression type Social History Tobacco Use Types Packs/Day Years Used Date Smoking Tobacco: Never Passive Smoke Exposure: Yes Smokeless Tobacco: Never Comments:Patient vapes on oc casion (rechargeable cartridge) Alcohol Use Standard Drinks/Week Comments No 0 (1 standard drink = 0.6 oz pur e alcohol) [facility] Inpatient Questions Answer Date Recorded Does Anyone [...] Sign Reading Time Taken Comments Blood Pressure 110/62 07/03/2023 1:58 PM EST Pulse - - Temperature - - Respiratory Rate - - Oxygen Saturation - - Inhaled Oxygen Concentration - - Weight 55.3 kg (121 lb 14.4 oz) 07/03/2023 1:58 PM EST Height - - Body Mass Index 24.62 06/07/2023 3:34 AM EST documented in this encounter Progress Notes * Tangela Rodrigues MD - 07/03/2023 2:00 PM EST Assessment: Ely is a 18 year old with history of anxiety and depression who presents for follow up and medication check. PHQ-9 today is 15 and GAD7 is 12 which are slightly decreased from her last office visit scores. Has continued to work with the embedded behavioral health clinician which has been reported to be helpful. Has not been taking the prescribed sertraline for the past few weeks and reports a noticed difference. Discussed ways to remember to take the medication. Will continue on current dose at this time and re assess in about a month after a longer time period on this dose. Otherwise will continue counseling and close follow up. Plan: - continue sertraline 50mg daily - work on ways to remember to take medication - will set a timer - follow up in a month for medication check, may need to titrate medication further - continue to work with embedded mental health provider - GC/chlamydia urine test today per patient request Return to Clinic for: follow up one month or sooner as needed Chief Complaint: Chief Complaint Patient presents with Medication Check History of Present Illness: Ely is a 18 year old who presents for medication follow up. - stopped taking medication as she reports she got off track - took the higher dose for a week after it was increased at the last visit but then she states she got side tracked and stopped taking it - feels like the medication helped when compared to how she feels off the medication currently - over past few weeks has felt out of it and down - has been meeting with Matt ([facility] mental health provider) which has been helpful - sleeping okay but hard with job - likes job a lot but trying to find another job in addition - will start the search soon - no stomach pain, no nausea - eating is going better than before - holidays were good - younger sister living with her which is going well - doing bunch of activities together, went iceskating yesterday - trying to find an apartment - not in a relationship anymore - mutually ended the relationship this past week, feeling okay Review of Systems: see HPI Vital Signs: BP 110/62 Wt 55.3 kg (121 lb 14.4 oz) LMP 06/21/2023 BMI 24.62 kg/m?? PHYSICAL EXAM: General: well appearing, in NAD HEENT: NC/AT, no nasal secretions, eyes without conjunctival injection CV: rrr, no murmurs Resp: good air entry, CTAB, no increased WOB, no wheezing, crackles Abd: soft, non tender MS: MAEW, grossly normal strength Neuro: alert, awake, CN II-XII grossly intact Tangela Rodrigues MD PGY-2 07/03/23 * Edgar Martinez MD - 07/03/2023 2:00 PM EST The case was discussed at the time of the visit or immediately after the visit. The assessment and plan were formulated in discussion with me and I agree with them as documented. I have reviewed the history, physical exam, assessment and plan with the resident. documented in this encounter Plan of Treatment Upcoming Encounters Date Type Department Care Team (Late st Contact Info) Description 08/08/2024 9:00 AM EST Appointment [address] [phone] SherylUmu beltran RN 08/15/2024 10:45 AM EST TH Visit (TeleHealth) Obstetrics and Gynecology at [place] [phone] Dara Kelley MD [facility] [place] [address] 11/25/2024 Hospital Encounter [place] [address] Dara Gonzalez MD [facility] [place] [address] 07/12/2025 1:40 PM EST Office Visit Ophthalmology at [place] [phone] Bina Agrawal OD [facility] OPHTHALMOLOGY [place], [place] [phone] documented as of this encounter Procedures Procedure Name Priority Date/Time Associated Diagnosis Comments GC/CHLAMYDIA Routine 07/03/2023 2:30 PM EST Unprotected sex documented in this encounter Results * GC/Chlamydia Urine (07/03/2023 2:30 PM EST) GC Gene Amp Negative Negative [facility] Comment: Eye specimens are not an FDA-cleared source for this testing. The performance of this assay with eye specimens has been validated in-house. GC Source Urine [facility] Chlamydia Gene Amp Negative Negative [facility] Comment: Eye specimens are not an FDA-cleared source for this testing. The performance of this assay with eye specimens has been validated in-house. Chlm Source Urine [facility] Urine 07/03/2023 2:30 PM EST 07/03/2023 3:40 PM EST Narrative Resulting Agency Comment Spec In Lab Edgar Martinez MD MICROBIOLOGY - GENER AL ORDERABLES [facility] [place] [address] documented in this encounter Visit Diagnoses Diagnosis Unprotected sex Problems related to high-risk sexual behavior Generalized anxiety disorder Depression, unspecified depression type documented in this encounter Care Teams Medical Assistant Per Diem Relationship Specialty Start Date End Date Edilma Cornejo MD [facility] [place] [address] PCP - General 12/05/22 documented as of this encounter
--- OUTSIDE RECORDS SUMMARY | 2024-07-29 00:23 | XMS_ITS | Encounter Summary ---
Author Organization [facility] Address [facility] Chantal [place] [address] Care Team Providers Care Recreational Vehicle Resort Manager Name Role Phone Edilma Cornejo MD Primary Care Provider [phone] Encounter Details Date Type Department Care Team (Latest Contact Info) Description 06/26/2023 Travel Social History Tobacco Use Types Packs/Day [...] Info) Description 08/08/2024 9:00 AM EST Appointment [address] [address] Umu Saucedo RN 08/15/2024 10:45 AM EST TH Visit (TeleHealth) [place]etrics [place] [address] Dara Kelley MD [facility] OBSTETRICS [place] [address] 11/25/2024 Hospital Encounter Birthing [place] [phone] Dara Gonzalez MD [facility] OBSTETRICS [place] [address] 07/12/2025 1:40 PM EST Office Visit Ophthalmology at [place] [address] Bina Agrawal OD [facility] [place] [address] documented as of this encounter Visit Diagnoses Not on filedocumented in this encounter Care Teams Recreational Vehicle Resort Manager Relationship Specialty Start Date End Date Edilma Cornejo MD [facility] [place] [address] PCP - General 12/05/22 documented as of this encounter
--- OUTSIDE RECORDS SUMMARY | 2024-07-29 00:23 | XMS_ITS | Encounter Summary ---
Author Organization [facility] Address [facility] [place] [address] Care Team Providers Care Certified Neurodiagnostic Technologist Name Role Phone Edilma Cornejo MD Primary Care Provider [phone] Encounter Details Date Type Department Care Team (Late st Contact Info) Description 07/22/2023 Abstract Pediatrics at [address] [address] Edilma Cornejo MD [facility] [place] [address] Social History Tobacco Use Types Packs/Day Years [...] Description 08/08/2024 9:00 AM EST Appointment [facility] [address] [address] Umu Saucedo, RN 08/15/2024 10:45 AM EST TH Visit (TeleHealth) Obstetrics [place] [address] Dara Kelley MD [facility] OBSTET[place] [address] 11/25/2024 Hospital Encounter Birthing [place] [address] Dara Gonzalez MD [facility] OBSTETR[place] [address] 07/12/2025 1:40 PM EST Office Visit Ophthalmology at [place] [address] Bina Agrawal OD [facility] [place] [address] documented as of this encounter Visit Diagnoses Not on filedocumented in this encounter Care Teams Certified Neurodiagnostic Technologist Relationship Specialty Start Date End Date Edilma Cornejo MD [facility] [place] [address] PCP - General 12/05/22 documented as of this encounter
--- OUTSIDE RECORDS SUMMARY | 2024-07-29 00:23 | XMS_ITS | Encounter Summary ---
Author Organization [facility] Address [facility] [place] [address] Care Team Providers Care Radio Producer Name Role Phone Edilma Cornejo MD Primary Care Provider [phone] Reason for Visit * Reason Onset Date Comments Back Pain 12/24/2023 Encounter Details Date Type Department Care Team (Late st Contact Info) Description 12/24/2023 Telephone Pediatrics at [address] [phone] Sobia Hensley RN Back Pain Social History Tobacco Use Types Packs/Day Years Used Date Smoking Tobacco: Never Passive Smoke Exposure: Yes Smokeless Tobacco: Never Comments:Patient vapes on oc casion (rechargeable cartridge) Alcohol Use Standard Drinks/Week Comments No 0 (1 standard drink = 0.6 oz pur e alcohol) [facility] Inpatient Questions Answer Date Recorded [...] encounter Miscellaneous Notes * Telephone Encounter - Sobia Hensley RN - 12/24/2023 3:47 PM EDT Left second message to return call * Telephone Encounter - Sobia Hensley RN - 12/24/2023 11:05 AM EDT Left message on identifiable voicemail documented in this encounter Plan of Treatment Upcoming Encounters Date Type Department Care Team (Late st Contact Info) Description 08/08/2024 9:00 AM EST Appointment [address] [address] Umu Saucedo RN 08/15/2024 10:45 AM EST TH Visit (TeleHealth) Obstetrics [place] [address] Dara Kelley MD [facility] [place] [address] 11/25/2024 Hospital Encounter Birthing [place] [phone] Dara Gonzalez MD [facility] [place] [address] 07/12/2025 1:40 PM EST Office Visit Ophthalmology at [place] [phone] Bina Agrawal OD [facility] [place] [address] documented as of this encounter Visit Diagnoses Not on filedocumented in this encounter Care Teams Radio Producer Relationship Specialty Start Date End Date Edilma Cornejo MD [facility] [place] [address] PCP - General 12/05/22 documented as of this encounter
--- OUTSIDE RECORDS SUMMARY | 2024-07-29 00:23 | XMS_ITS | Encounter Summary ---
Author Organization [facility] Address [facility] [place] [address] Care Team Providers Care Health Care Facilities Inspector Name Role Phone Edilma Cornejo MD Primary Care Provider [phone] Encounter Details Date Type Department Care Team (Late st Contact Info) Description 06/26/2023 2:30 PM EST Office Visit Pediatrics at [address] [address] Maureen Clifton, [facility] [place] [place] [address] Depression, unspecified depression type Social History Tobacco Use Types Packs/Day Years Used Date Smoking Tobacco: Never Passive Smoke Exposure: Yes Smokeless Tobacco: Never Comments:Patient vapes on oc casion (rechargeable cartridge) Alcohol Use Standard Drinks/Week Comments No 0 (1 standard drink = 0.6 oz pur e alcohol) [facility] Inpatient Questions Answer Date Recorded Does Anyone [...] this encounter Progress Notes * Maureen Clifton, [facility] - 06/26/2023 2:30 PM EST Images from the original note were not included. PEDIATRIC COLLABORATIVE CARE THERAPY PROGRESS NOTE Patient Name: Ely Mahmood Referral Date: 05/05/23 Intervention Session #: 4 Time Spent: 30 Attendees: Ely Mahmood Visit [...] was seen for scheduled appointment. Discussed current functioning and she reports that she is contemplating a change in her relationship. She has been with her current boyfriend for three weeks and last week was talking about moving in and having a baby. She is still interested in h aving a baby and also notes that she is interested in at least two other people and that she is notsure she want to commit to her current partner. Discussed the circumstances from her life which reinforce her interest and urge to have a baby settle down and have a house. She reports that she doesn't feel a strong desire to get . She also explored her interest in a relationship with women or transgender persons. Discussed the world view thoughts affecting these challenges for her and shewas able to identify that instability in her own primary relationships leads her to want stability and the opportunity to create that for herself. This is at odds with the fact that she is still veryyoung and hasn't had time to explore everything available to her. Discussed making smart, healthy choices by weighing pros and cons, identifying thoughts behind urges she is experiencing and researching options before making unchangeable choices. Discussed safety and she denied any suicidal ideation. Objective: Ely arrived to session adequately groomed and appropriately dressed for the weather. Hair today is a selena brown/ blonde color. Ely was engaged and participated mindfully. Last 4 PAVITHRA 7 Scores: 05/01/2023 05/18/2023 [...] Develop a fear hierarchy [x] Exposure practice Identifying the impact of world view thoughts on her urges to make impulsive choices. Discussed using skills to stay mindful and reduce distress. [] Relaxation training [] Worry outcome journal [...] Description 08/08/2024 9:00 AM EST Appointment [address] [phone] Umu Saucedo RN 08/15/2024 10:45 AM EST TH Visit (TeleHealth) Obstetrics [place] [address] Dara Kelley MD [facility] [place] [address] 11/25/2024 Hospital Encounter [place] [address] Dara Gonzalez MD [facility] [place] [address] 07/12/2025 1:40 PM EST Office Visit Ophthalmology at [address] Bina Agrawal, [facility] [place] [address] documented as of this encounter Visit Diagnoses Diagnosis Depression, unspecified depression type documented in this encounter Care Teams Health Care Facilities Inspector Relationship Specialty Start Date End Date Edilma Cornejo MD [facility] [place] [address] PCP - General 12/05/22 documented as of this encounter
--- OUTSIDE RECORDS SUMMARY | 2024-07-29 00:23 | XMS_ITS | Encounter Summary ---
Author Organization [facility] Address [facility] Chantal [place] [address] Care Team Providers Care Registration Coordinator Name Role Phone Edilma Cornejo MD Primary Care Provider [phone] Encounter Details Date Type Department Care Team (Latest Contact Info) Description 06/07/2023 Travel Social History Tobacco Use Types Packs/Day [...] Info) Description 08/08/2024 9:00 AM EST Appointment [address] [phone] Umu Saucedo RN 08/15/2024 10:45 AM EST TH Visit (TeleHealth) Obstetrics [place] [address] Dara Kelley MD [facility] [place] [address] 11/25/2024 Hospital Encounter Birthing [place] [phone] Dara Gonzalez MD [facility] [place] [address] 07/12/2025 1:40 PM EST Office Visit Ophthalmology at [place] [address] Bina Agrawal OD [facility] [place] [address] documented as of this encounter Visit Diagnoses Not on filedocumented in this encounter Care Teams Registration Coordinator Relationship Specialty Start Date End Date Edilma Cornejo MD [facility] [place] [address] PCP - General 12/05/22 documented as of this encounter
--- OUTSIDE RECORDS SUMMARY | 2024-07-29 00:23 | XMS_ITS | Encounter Summary ---
Author Organization [facility] Address [facility] [place] [address] Care Team Providers Care Mechanical Systems Engineer Name Role Phone Edilma Cornejo MD Primary Care Provider [phone] Reason for Visit * Reason Onset Date Comments Back Pain 12/24/2023 Encounter Details Date Type Department Care Team (Late st Contact Info) Description 12/24/2023 Telephone Pediatrics at [address] [phone] Sobia Hensley RN Back Pain Social History Tobacco Use Types Packs/Day Years Used Date Smoking Tobacco: Never Passive Smoke Exposure: Yes Smokeless Tobacco: Never Comments:Patient vapes on oc casion (rechargeable cartridge) Alcohol Use Standard Drinks/Week Comments No 0 (1 standard drink = 0.6 oz pur e alcohol) [facility] Inpatient Questions Answer Date Recorded Does [...] Encounter - Sobia Hensley RN - 12/24/2023 4:41 PM EDT Pt returns call r/t back pain she discussed in [employer] message. States she has had back pain at the spine since Thursday. No known injury or strenuous activity related to pain. States she had some pain with urination last week before back pain started but it went away and does not have discomfort now. Has tried a rub that contains 10% menthol as well as Omer's back pills without relief. Encouraged totry heat to back but she doesn't have one available where she is staying now. H/o scoliosis since . Call transferred to secretary office clerk for appointment tomorrow. documented in this encounter Plan of Treatment Upcoming Encounters Date Type Department Care Team (Late st Contact Info) Description 08/08/2024 9:00 AM EST Appointment [address] [address] Umu Saucedo RN 08/15/2024 10:45 AM EST TH Visit (TeleHealth) Obstetrics and Gynecology at [place] [phone] Dara Kelley MD [facility] OBSTETRICS [place] [address] 11/25/2024 Hospital [facility] [place] [address] Dara Gonzalez MD [facility] OBSTETRICS [place] [address] 07/12/2025 1:40 PM EST Office Visit Ophthalmology at [place] [phone] Bina Agrawal OD [facility] [place] [address] documented as of this encounter Visit Diagnoses Not on filedocumented in this encounter Care Teams Mechanical Systems Engineer Relationship Specialty Start Date End Date Edilma Cornejo MD [facility] [place] [address] PCP - General 12/05/22 documented as of this encounter
--- OUTSIDE RECORDS SUMMARY | 2024-07-29 00:23 | XMS_ITS | Encounter Summary ---
Author Organization [facility] Address [facility] [place] [address] Care Team Providers Care Concrete Handler Name Role Phone Edilma Cornejo MD Primary Care Provider [phone] Encounter Details Date Type Department Care Team (Late st Contact Info) Description 09/09/2023 1:00 PM EDT Office Visit Pediatrics at [address] [address] Maureen Clifton, [facility] [place] [address] Generalized anxiety disorder Social History Tobacco Use Types Packs/Day Years Used Date Smoking Tobacco: Never Passive Smoke Exposure: Yes Smokeless Tobacco: Never Comments:Patient vapes on oc casion (rechargeable cartridge) Alcohol Use Standard Drinks/Week Comments No 0 (1 standard drink = 0.6 oz pur e alcohol) [facility] Inpatient Questions Answer Date Recorded Does Anyone [...] this encounter Progress Notes * Maureen Clifton, [facility] - 09/09/2023 1:00 PM EDT Images from the original note were not included. PEDIATRIC COLLABORATIVE CARE THERAPY PROGRESS NOTE Patient Name: Ely Mahmood Referral Date: 05/05/23 Intervention Session #: 8 Time Spent: 59 Attendees: Ely Mahmood Visit Location: In person [...] Discussed current functioning. She reports that she is now engaged. She has been dating the person for about 6 weeks. He initially had a differentgirlfriend when they started their relationship, but he ended that and is now committed to this marriage. Ely reports that their primary stressor is obtaining housing. She is currently living with her grandparents. She describes having difficulty with her recently implanted IUD and [facility]. Focused on supporting her in using anxiety management skills to identify worry thoughts and thought distortions. Approach problem solving with a ppropriate boundaries and be able to identify red flags. She endorses that her mood is greatly improved and her anxiety is primarily triggered by worries about self worth. Will focus on skills a bit longer and encourage more retirement connections in the community, especially since she has stopped taking her medications. Objective: Ely arrived to session adequately groomed [...] PAVITHRA-7 Score 10 5 9 8 5 No data to display No data to [...] Info) Description 08/08/2024 9:00 AM EST Appointment [address] [address] Umu Saucedo RN 08/15/2024 10:45 AM EST Visit (TeleHealth) Obstetrics [place] [address] Dara Kelley MD [facility] OBST[place] [address] 11/25/2024 [place] [phone] Dara Gonzalez MD [facility] OBSTETRICS AND GYNECOLOGY [place], [place] [phone] 07/12/2025 1:40 PM EST Office [place] [address] Bina Agrawal, JONELLE [facility] [place] [address] documented as of this encounter Visit Diagnoses Diagnosis Generalized anxiety disorder documented in this encounter Care Teams Concrete Handler Relationship Specialty Start Date End Date Edilma Cornejo MD [facility] [place] [address] PCP - General 12/05/22 documented as of this encounter
--- OUTSIDE RECORDS SUMMARY | 2024-07-29 00:23 | XMS_ITS | Encounter Summary ---
Author Organization [facility] Address [facility] [place] [address] Care Team Providers Care Nuclear Medicine Physician Name Role Phone Edilma Cornejo MD Primary Care Provider [phone] Encounter Details Date Type Department Care Team (Late st Contact Info) Description 07/08/2023 1:00 PM EST Office Visit Pediatrics at [address] [address] Maureen Clifton, [facility] [place] [address] Generalized anxiety disorder Social History Tobacco Use Types Packs/Day Years Used Date Smoking Tobacco: Never Passive Smoke Exposure: Yes Smokeless Tobacco: Never Comments:Patient vapes on oc casion (rechargeable cartridge) Alcohol Use Standard Drinks/Week Comments No 0 (1 standard drink = 0.6 oz pur e alcohol) [facility] Inpatient Questions Answer Date Recorded Does [...] this encounter Progress Notes * Maureen Clifton, [facility] - 07/08/2023 1:00 PM EST Images from the original note were not included. PEDIATRIC COLLABORATIVE CARE THERAPY PROGRESS NOTE Patient Name: Ely Mahmood Referral Date: 05/05/23 Intervention Session #: 6 Time Spent: 55 Attendees: Ely Mahmood Visit Location: In person [...] for scheduled appointment. Discussed current functioning and anxiety management. She reports that following her break up, she met someone at work. They spent the day together and also were intimate. She notes that she later found out that he is in a relationship. She reports difficulty in processing her dilemma on how to proceed. Discussed factors and worry thoughts and how they inform her choices in relationships. She reports wanting a baby although she acknowledges that she can't support a baby yet and doesn't have the best options for a co-parent. Discussed what factors impact her thinking and balancing her emotional needs with her concrete needs. Focused on hermotivation to build a stable life, select a stable partner and create a good environment for herself and a family. Objective: Ely arrived to session adequately groomed and appropriately dressed for the weather. Hair today is a selena brown/ blonde color. Ely was engaged and participated mindfully. Last 4 PAVITHRA 7 Scores: 05/27/2023 06/18/2023 07/03/2023 07/08/2023 PAVITHRA-7 Score Only - All PAVITHRA-7 Score (Pt Questionnaire) 13 (Moderate Anxiety) 10 (Moderate Anxiety) 12 (Moderate Anxiety) 15(Severe Anxiety) PAVITHRA-7 Score 8 6 12 10 No data to display No data to [...] Therapeutic Activities: Details/Summary: [x] Education about anxiety/avoidance Focused on pros and cons, making informed decisions and knowing the problem you are solving. [] Develop a fear hierarchy [] Exposure [...] 08/08/2024 9:00 AM EST Appointment [facility] [place] [facility] [address] [phone] Umu Saucedo RN 08/15/2024 10:45 AM EST TH Visit (TeleHealth) Obstetrics [place] [address] Dara Kelley MD [facility] [place] [address] 11/25/[address] [place] [place] [address] Dara Gonzalez MD [facility] [place] [address] 07/12/2025 1:40 PM EST Office Visit [place] [address] Bina Agrawal OD [facility] [place] [address] documented as of this encounter Visit Diagnoses Diagnosis Generalized anxiety disorder documented in this encounter Care Teams Nuclear Medicine Physician Relationship Specialty Start Date End Date Edilma Cornejo MD [facility] [place] [address] PCP - General 12/05/22 documented as of this encounter
--- OUTSIDE RECORDS SUMMARY | 2024-07-29 00:23 | XMS_ITS | Encounter Summary ---
Author Organization [facility] Address [facility] [place] [address] Care Team Providers Care Clerk Name Role Phone Edilma Cornejo MD Primary Care Provider [phone] Encounter Details Date Type Department Care Team (Latest Contact Info) Description 07/16/2023 1:00 PM EST TH Visit (TeleHealth) Pediatrics at [address] [address] Maureen Clifton, [facility] [place] [address] Generalized anxiety disorder Social History Tobacco Use Types Packs/Day Years Used Date Smoking Tobacco: Never Passive Smoke Exposure: Yes Smokeless Tobacco: Never Comments:Patient vapes on oc casion (rechargeable cartridge) Alcohol Use Standard Drinks/Week Comments No 0 (1 standard drink = 0.6 oz pur e alcohol) [facility] Inpatient Questions Answer Date Recorded Does [...] this encounter Progress Notes * Maureen Clifton, [facility] - 07/16/2023 1:00 PM EST Images from the original note were not included. PEDIATRIC COLLABORATIVE CARE THERAPY PROGRESS NOTE Patient Name: Ely Mahmood Referral Date: 05/05/23 Intervention Session #: 7 Time Spent: 55 Attendees: Ely Mahmood Visit [...] appointment. Discussed current functioning. She reports that there have been no major life changes recently and most things are going smoothly for her. She andher Grandmother had an argument and the stakes got raised when grandmother suggested that she find another place to live. Discussed triggers, how anxiety thoughts affect her responses and how to use social skills to set appropriate boundaries to deescalate in these type of situations. Objective: Ely arrived to session adequately groomed and appropriately dressed for the weather. Ely was engaged and participated. Last 4 PAVITHRA 7 Scores: 05/27/2023 06/18/2023 [...] Activities: Details/Summary: [x] Education about anxiety/avoidance Focused social skills to assist in boundary setting when worry thoughts add to escalating interpersonal conflict. [] Develop a fear hierarchy [] Exposure [...] Info) Description 08/08/2024 9:00 AM EST Appointment [address] [address] Umu Saucedo RN 08/15/2024 10:45 AM EST TH Visit (TeleHealth) Obstetrics and Gynecology at [place] [phone] Dara Kelley MD [facility] [place] [address] 11/25/2024 Hospital Encounter Birthing [place] [phone] Dara Gonzalez MD [facility] [place] [address] 07/12/2025 1:40 PM EST Office Visit Ophthalmology at [place] [phone] Bina Agrawal OD [facility] [place] [address] documented as of this encounter Visit Diagnoses Diagnosis Generalized anxiety disorder documented in this encounter Care Teams Clerk Relationship Specialty Start Date End Date Edilma Cornejo MD [facility] [place] [address] PCP - General 12/05/22 documented as of this encounter
--- OUTSIDE RECORDS SUMMARY | 2024-07-29 00:23 | XMS_ITS | Encounter Summary ---
Author Organization [facility] Address [facility] [place] [address] Care Team Providers Care Requirements Analyst Name Role Phone Edilma Cornejo MD Primary Care Provider [phone] Encounter Details Date Type Department Care Team (Late st Contact Info) Description 09/08/2023 Telephone [facility] [address] [place] [phone] Demetrice Mock Social History Tobacco Use Types Packs/Day Years [...] Miscellaneous Notes * Telephone Encounter - Andressa Dong LPN - 09/08/2023 9:17 AM EDT I have spoken with pt and she states that she continues to have vaginal bleeding and spotting and severe cramping. We discussed that cramping and spotting can happen upwards of 3 months after IUD placement ( Tiffanie 07/24/23). Pt. States that cramping is pretty constant. We discussed her taking ibuprofen which she had not done yet. Per Pt vaginal bleeding not heavy( denies saturating maxi pad 1 hours time) but is concerned that she is having bleeding after intercourse. Pt. Would like to have appointment to check for placement of IUD. I have offered appointment today she is unable to come in today buy is able to make appointment Thursday. We discussed abstaining from intercourse until we are sure IUD is placed correctly. Pt denies fevers, chills, vaginal discharge, vaginal odor, dizziness, shortness of breath.Pt will call if pelvic cramping worsens or she develops other symptoms. Pt. Thankedme for the call. * Telephone Encounter - Demetrice Mock - 09/08/2023 8:49 AM EDT Patient called back from last week she has been working and not been able to call back. documented in this encounter Plan of Treatment Upcoming Encounters Date Type Department Care Team (Late st Contact Info) Description 08/08/2024 9:00 AM EST Appointment [address] [phone] Umu Saucedo RN 08/15/2024 10:45 AM EST TH Visit (TeleHealth) Obstetrics [place] [address] Dara Kelley MD [facility] DR OBSTETRICS [place] [address] 11/25/2024 Hospital Encounter Birthing [place] [phone] Dara Gonzalez MD [facility] OBSTETRICS [place] [address] 07/12/2025 1:40 PM EST Office Visit Ophthalmology at [place] [phone] Bina Agrawal, JONELLE [facility] [place] [address] documented as of this encounter Visit Diagnoses Not on filedocumented in this encounter Care Teams Requirements Analyst Relationship Specialty Start Date End Date Edilma Cornejo MD [facility] [place] [address] PCP - General 12/05/22 documented as of this encounter
--- OUTSIDE RECORDS SUMMARY | 2024-07-29 00:23 | XMS_ITS | Encounter Summary ---
Author Organization [facility] Address [facility] [place] [address] Care Team Providers Care In Mold Coater Name Role Phone Edilma Cornejo MD Primary Care Provider [phone] Reason for Visit * Reason Comments Eye Exam Encounter Details Date Type Department Care Team (Late st Contact Info) Description 06/26/2023 12:40 PM EST Office [place] [address] Bina Agrawal OD [facility] [place] [address] Emmetropia Social History Tobacco Use Types Packs/Day Years Used Date Smoking Tobacco: Never Passive Smoke Exposure: Yes Smokeless Tobacco: Never Comments:Patient vapes on oc casion (rechargeable cartridge) Alcohol Use Standard Drinks/Week Comments No 0 (1 standard drink = 0.6 oz pur e alcohol) [facility] Inpatient Questions Answer Date Recorded Does Anyone [...] Progress Notes * Bina Agrawal, OD - 06/26/2023 12:40 PM EST Encounter Diagnosis Name Primary? Emmetropia Ely Mahmood is a 18 y.o. with the following ophthalmic problems: Assessment and Plan: Dilated ocular health unremarkable - Monitor at [facility] Emmetropia OU - Rx not indicated - Findings and concerns discussed with Ely and she expressed understanding. -Upon Return [facility] in 1 year, sooner with changes in sx/vision. documented in this encounter Plan of Treatment Upcoming Encounters Date Type Department Care Team (Late st Contact Info) Description 08/08/2024 9:00 AM EST Appointment [address] [address] Umu Saucedo, RN 08/15/2024 10:45 AM EST TH Visit (TeleHealth) Obstetrics [place] [address] Dara Kelley MD [facility] OBST[place] [address] 11/25/2024 Hospital [place] [address] Dara Gonzalez MD [facility] OBSTETR[place] [address] 07/12/2025 1:40 PM EST Office [place] [address] Bina Agrawal, OD [facility] [place] [place] [address] documented as of this encounter Visit Diagnoses Diagnosis Emmetropia Screening for other eye conditions documented in this encounter Care Teams In Mold Coater Relationship Specialty Start Date End Date Edilma Cornejo MD [facility] [place] [address] PCP - General 12/05/22 documented as of this encounter
--- OUTSIDE RECORDS SUMMARY | 2024-07-29 00:23 | XMS_ITS | Encounter Summary ---
Author Organization [facility] Address [facility] [place] [address] Care Team Providers Care Lead Ramp Agent Name Role Phone Edilma Cornejo MD Primary Care Provider [phone] Reason for Visit * Reason Comments Vaginal Discharge Encounter Details Date Type Department Care Team (Late st Contact Info) Description 11/12/2023 11:30 AM EDT Office Visit [facility] [address] [place] [phone] Edilma Patel, PA [address] OBSTETRICS [place] [address] Patient desires ; Dysuria; Yeast vaginitis; Routine screening for STI (sexually transmitted infection); Vulvovaginal discomfort Social History Tobacco Use Types Packs/Day Years Used Date Smoking Tobacco: Never Passive Smoke Exposure: Yes Smokeless Tobacco: Never Comments:Patient vapes on oc casion (rechargeable cartridge) Alcohol Use Standard Drinks/Week Comments No 0 (1 standard drink = 0.6 oz pur e alcohol) [facility] Inpatient Questions Answer Date Recorded [...] Sign Reading Time Taken Comments Blood Pressure 122/76 11/12/2023 11:14 AM EDT Pulse 95 11/12/2023 11:14 AM EDT Temperature - - Respiratory Rate - - Oxygen Saturation 99% 11/12/2023 11:14 AM EDT Inhaled Oxygen Concentration - - Weight 55.4 kg (122 lb 3.2 oz) 11/12/2023 11:14 AM EDT Height 151.8 cm (4' 11.75) 11/12/2023 11:14 AM EDT Body Mass Index 24.07 11/12/2023 11:14 AM EDT documented in this encounter Progress Notes * Edilma Patel PA - 11/12/2023 11:30 AM EDT Chief Complaint: Chief Complaint Patient presents with Vaginal Discharge Subjective: HPI: Ely Mahmood is a 18 y.o. female presenting to the [facility] with the following concerns. Yeast infection- Vaginal itching inside and inner lips, discharge that is thick and slightly yellow. Denies pain with urination, blood in her urine, urinary urgency or frequency, flank pain. Reports some urinary symptoms 3 weeks ago - some burning with urination, frequency. Did not see a provider, and symptoms resolved just before her vulvovaginal symptoms started. Also notes was using ahot tub almost daily when these started. Sexually active - 2 partners since last visit, not using condoms. Desires STI screening. Not using contraception, desires ROS: Review of Systems Constitutional: Negative for chills and fever. Genitourinary: Positive for dysuria and vaginal discharge. Negative for dyspareunia, flank pain, hematuria and pelvic pain. Patient's last menstrual period was 10/16/2023 (exact date). 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 Use with spacer 1 each 5 ibuprofen (Advil) 600 mg tablet No current facility-administered medications on file prior to visit. Allergies Allergen Reactions Band-Aid [Adhesive Bandage] Rash Fabric band-aids Objective: VS: BP 122/76 Pulse 95 Ht 151.8 cm (4' 11.75) Wt 55.4 kg (122 lb 3.2 oz) LMP 10/16/2023 (Exact Date) SpO2 99% BMI 24.07 kg/m?? Physical Exam Abdominal: General: Abdomen is flat. Palpations: Abdomen is soft. Tenderness: There is no abdominal tenderness. There is no right CVA tenderness or left CVA tenderness. Genitourinary: Comments: Pelvic exam: VULVA: normal appearing labia majora bilaterally, mild erythema on inner aspect of labia minora, no edema, discharge or lesions noted, VAGINA: vaginal erythema and moderate amount creamy white-yellow discharge, CERVIX: normal appearing cervix without discharge or lesions, cervical motion tenderness absent, UTERUS: uterus is normal size, shape, consistency and nontender, ADNEXA: normal adnexa in size, nontender and no masses Wet Prep/EVANS: Wet mount: Trichomonas: neg Clue cells: neg PH: < 5 EVANS prep: Hyphae: + Buds: ++ Whiff test: neg Urine dipstick shows negative for all components. Assessment and Plan: Ely Mahmood is a 18 y.o. female with the following issues: Vulvovaginal itching STI screening Desires Dysuria - resolved without treatment She reports vulvovaginal itching and abnormal discharge that 5-7 days ago. Exam and wet prep c/w vulvovaginal candidiasis. Will treat with diflucan 150 mg x 1 dose. Vaginitis panel ordered to r/o other etiology. She also desires STI screening, GC/Chlamydia orders placed. She also requests urine test today as she is trying to conceive. This is negative today. Ely was seen today for vaginal discharge. Diagnoses and all orders for this visit: Patient desires - POCT urine Dysuria - POCT urine dipstick Yeast vaginitis - fluconazole (Diflucan) 150 mg tablet; Take 1 tablet by mouth once for 1 dose. Routine screening for STI (sexually transmitted infection) - GC Gene Amp Vaginal - Chlamydia Gene Amp Vaginal Vulvovaginal discomfort - Vaginitis/osis Panel ([facility]/APD/NLH/CGP) FOLLOW UP: Return in about 1 week (around 11/19/2023) for If vulvovaginal symptoms have not resolved. ABIGAIL Correa 11/12/2023 documented in this encounter Plan of Treatment Upcoming Encounters Date Type Department Care Team (Late st Contact Info) Description 08/08/2024 9:00 AM EST Appointment [address] [address] Umu Saucedo RN 08/15/2024 10:45 AM EST Visit (TeleHealth) Obstetrics [place] [address] Dara Kelley MD [facility] OBSTETRICS [place] [address] 11/25/2024 Hospital Encounter [place] [address] Dara Gonzalez MD [facility] OBSTETRICS AND GYNECOLOGY [place], [place] [phone] 07/12/2025 1:40 PM EST Office [place] [address] Bina Agrawal OD [facility] [place] [address] documented as of this encounter Procedures Procedure Name Priority Date/Time Associated Diagnosis Comments VAGINITIS/OSIS PANEL ([facility]/APD/NLH/CGP) Routine 11/12/2023 3:31 PM EDT Vulvovaginal discomfort CHLAMYDIA GENE AMP Routine 11/12/2023 3: 31 PM EDT Routine screening for STI (sexually transmitted infection) GC GENE AMP Routine 11/12/2023 3:31 PM EDT Routine screening for STI (sexually transmitted infection) POCT URINE DIPSTICK Routine 11/12/2023 1 2:41 PM EDT Dysuria POCT URINE Routine 11/12/2023 12:40 PM EDT Patient desires documented in this encounter Results * Chlamydia Gene Amp Vaginal (11/12/2023 3:31 PM EDT) Chlamydia Gene Amp Negative Negative [facility] Comment: Eye specimens are not an FDA-cleared source for this testing. The performance of this assay with eye specimens has been validated in-house. Chlm Source Vaginal [facility] Vaginal 11/12/2023 3:31 PM EDT 11/13/2023 12:13 AM EDT Narrative Resulting Agency Comment Spec In Lab Earle Cade MD MICROBIOLOGY - GENE RAL ORDERABLES Performing Organization Address [facility]/ZIP Co de Phone Number [facility] [place] [address] * GC Gene Amp Vaginal (11/12/2023 3:31 PM EDT) GC Gene Amp Negative Negative [facility] Comment: Eye specimens are not an FDA-cleared source for this testing. The performance of this assay with eye specimens has been validated in-house. GC Source Vaginal [facility] Vaginal 11/12/2023 3:31 PM EDT 11/13/2023 12:13 AM EDT Narrative Resulting Agency Comment Spec In Lab Earle Cade MD MICROBIOLOGY - GENE RAL ORDERABLES Performing Organization Address [facility] Co de Phone Number [facility] [place] [address] * (ABNORMAL) Vaginitis/osis Panel ([facility]/APD/NLH/CGP) (11/12/2023 3:31 PM EDT) Bacterial vaginosis Negative Negative [facility] Berenice sp. Group Positive(A) Negative [facility] Berenice Glabrata Negative Negative [facility] Trichomonas vaginalis Negative Negative [facility] BV/CV/TV Interp Results from these nucleic acid amplification assay [...] and BV Assay were tested on the [employer] Instrument. These assays are cleared by the [place] Food & Drug Administration for clinical testing. [facility] Vaginal 11/12/2023 3:31 PM EDT 11/12/2023 7:46 PM EDT Narrative Resulting Agency Comment Spec In Lab Earle Cade MD MICROBIOLOGY - GENE RAL ORDERABLES [facility] [place] [address] * (ABNORMAL) POCT urine dipstick (11/12/2023 12:41 PM EDT) POC Sp [place] >=1.030 1.002 - 1.030 POC pH, UA 5.5 5.0 - 8.5 POC Leuk, UA Negative Negative - Negative POC Nitrite, UA Negative Negative - Negative POC Protein, UA Negative Negative - Negative mg/dL POC Glucose, UA Negative Normal - Normal mg/dL POC Ketone, UA Negative Negative - Negative POC Urobil, UA 0.2 0.2 - 1.0 mg/dL POC Bili, UA Negative Negative - Negative POC Blood, UA Negative Negative - Negative jones/uL 11/12/2023 12:4 1 PM EDT Earle Cade MD POINT OF CARE TEST ORDERABLES * POCT urine (11/12/2023 12:40 PM EDT) POC Urine HCG Negative POC Control Internal Controls Acceptable 11/12/2023 12:4 0 PM EDT Earle Cade MD POINT OF CARE TEST ORDERABLES documented in this encounter Visit Diagnoses Diagnosis Patient desires Unspecified procreative management Dysuria Yeast vaginitis Candidiasis of vulva and vagina Routine screening for STI (sexually transmitted infection) Screening examination for venereal disease Vulvovaginal discomfort Unspecified symptom associated with female genital organs documented in this encounter Care Teams Lead Ramp Agent Relationship Specialty Start Date End Date Clemente, Edilma S, MD [facility] [place] [address] PCP - General 12/05/22 documented as of this encounter
--- OUTSIDE RECORDS SUMMARY | 2024-07-29 00:23 | XMS_ITS | Encounter Summary ---
Author Organization [facility] Address [facility] [place] [address] Care Team Providers Care Manager Bilingual Name Role Phone Edilma Cornejo MD Primary Care Provider [phone] Encounter Details Date Type Department Care Team (Latest Contact Info) Description 05/29/2023 Travel Social History Tobacco Use Types Packs/Day [...] Info) Description 08/08/2024 9:00 AM EST Appointment [facility] [address] [address] Umu Saucedo RN 08/15/2024 10:45 AM EST TH Visit (TeleHealth) Obstetrics [place] [phone] Dara Kelley MD [facility] OBSTETRICS [place] [address] 11/25/2024 Hospital Encounter Birthing [place] [phone] Dara Gonzalez MD [facility] [place] [address] 07/12/2025 1:40 PM EST Office Visit Ophthalmology at [place] [phone] Bina Agrawal, JONELLE [facility] [place] [address] documented as of this encounter Visit Diagnoses Not on filedocumented in this encounter Care Teams Manager Bilingual Relationship Specialty Start Date End Date Edilma Cornejo MD [facility] [place] [address] PCP - General 12/05/22 documented as of this encounter
--- OUTSIDE RECORDS SUMMARY | 2024-07-29 00:23 | XMS_ITS | Encounter Summary ---
Author Organization [facility] Address [facility] Chantal [place] [address] Care Team Providers Care Nursing Techn Name Role Phone Edilma Cornejo MD Primary Care Provider [phone] Encounter Details Date Type Department Care Team (Latest Contact Info) Description 07/08/2023 Travel Social History Tobacco Use Types Packs/Day [...] Description 08/08/2024 9:00 AM EST Appointment [address] [address] Umu Saucedo RN 08/15/2024 10:45 AM EST TH Visit (TeleHealth) Obstetrics [place] [address] Dara Kelley MD [facility] OBSTETRICS [place] [address] 11/25/2024 Hospital Encounter Birthing [place] [phone] Dara Gonzalez MD [facility] OBSTETRICS [place] [address] 07/12/2025 1:40 PM EST Office Visit Ophthalmology at [place] [address] Bina Agrawal OD [facility] [place] [address] documented as of this encounter Visit Diagnoses Not on filedocumented in this encounter Care Teams Nursing Techn Relationship Specialty Start Date End Date Edilma Cornejo MD [facility] [place] [address] PCP - General 12/05/22 documented as of this encounter
--- OUTSIDE RECORDS SUMMARY | 2024-07-29 00:23 | XMS_ITS | Encounter Summary ---
Author Organization [facility] Address [facility] [place] [address] Care Team Providers Care Talent Acquisition Partner Name Role Phone Edilma Cornejo MD Primary Care Provider [phone] Encounter Details Date Type Department Care Team (Latest Contact Info) Description 06/18/2023 Travel Social History Tobacco Use Types Packs/Day [...] Description 08/08/2024 9:00 AM EST Appointment [address] [address] Umu Saucedo RN 08/15/2024 10:45 AM EST TH Visit (TeleHealth) Obstetrics [place] [address] Dara Kelley MD [facility] OBSTETRICS [place] [address] 11/25/2024 Hospital Encounter Birthing [place] [phone] Dara Gonzalez MD [facility] OBSTETRICS [place] [address] 07/12/2025 1:40 PM EST Office Visit Ophthalmology at [place] [address] Bina Agrawal OD [facility] [place] [address] documented as of this encounter Visit Diagnoses Not on filedocumented in this encounter Care Teams Talent Acquisition Partner Relationship Specialty Start Date End Date Edilma Cornejo MD [facility] [place] [address] PCP - General 12/05/22 documented as of this encounter
--- OUTSIDE RECORDS SUMMARY | 2024-07-29 00:23 | XMS_ITS | Encounter Summary ---
Author Organization [facility] Address [facility] [place] [address] Care Team Providers Care Technical Photographer Name Role Phone Edilma Cornejo MD Primary Care Provider [phone] Encounter Details Date Type Department Care Team (Latest Contact Info) Description 07/30/2023 2:00 PM EST TH Visit (TeleHealth) Pediatrics at [address] [phone] Maureen Clifton, [facility] [place] [address] Depression, unspecified depression type Social History Tobacco Use Types Packs/Day Years Used Date Smoking Tobacco: Never Passive Smoke Exposure: Yes Smokeless Tobacco: Never Comments:Patient vapes on oc casion (rechargeable cartridge) Alcohol Use Standard Drinks/Week Comments No 0 (1 standard drink = 0.6 oz pur e alcohol) [facility] Inpatient Questions Answer Date Recorded Does Anyone [...] this encounter Progress Notes * Maureen Clifton [facility] - 07/30/2023 2:00 PM EST Patient arrived late to session and asked to reschedule. Set up next appointment for 08/07/23. documented in this encounter Plan of Treatment Upcoming Encounters Date Type Department Care Team (Late st Contact Info) Description 08/08/2024 9:00 AM EST Appointment [address] [address] Umu Saucedo RN 08/15/2024 10:45 AM EST TH Visit (TeleHealth) Obstetrics and Gynecology at [place] [phone] Dara Kelley MD [facility] OBSTETRICS [place] [address] 11/25/2024 Hospital Encounter Birthing [place] [phone] Dara Gonzalez MD [facility] OBSTETRICS [place] [address] 07/12/2025 1:40 PM EST Office Visit Ophthalmology at [address] Bina Agrawal OD [facility] [place] [address] documented as of this encounter Visit Diagnoses Diagnosis Depression, unspecified depression type documented in this encounter Care Teams Technical Photographer Relationship Specialty Start Date End Date Edilma Cornejo MD [facility] [place] [address] PCP - General 12/05/22 documented as of this encounter
--- OUTSIDE RECORDS SUMMARY | 2024-07-29 00:23 | XMS_ITS | Encounter Summary ---
Author Organization [facility] Address [facility] Chantal [place] [address] Care Team Providers Care Social Service Technician Name Role Phone Edilma Cornejo MD Primary Care Provider [phone] Encounter Details Date Type Department Care Team (Latest Contact Info) Description 07/22/2023 Travel Social History Tobacco Use Types Packs/Day [...] Description 08/08/2024 9:00 AM EST Appointment [address] [phone] Umu Saucedo RN 08/15/2024 10:45 AM EST TH Visit (TeleHealth) Obstetrics [place] [address] Dara Kelley MD [facility] OBST[place] [address] 11/25/2024 Hospital Encounter Birthing [place] [phone] Dara Gonzalez MD [facility] OBST[place] [address] 07/12/2025 1:40 PM EST Office Visit Ophthalmology at [place] [address] Bina Agrawal OD [facility] [place] [address] documented as of this encounter Visit Diagnoses Not on filedocumented in this encounter Care Teams Social Service Technician Relationship Specialty Start Date End Date Edilma Cornejo MD [facility] [place] [address] PCP - General 12/05/22 documented as of this encounter
--- OUTSIDE RECORDS SUMMARY | 2024-07-29 00:23 | XMS_ITS | Encounter Summary ---
Author Organization [facility] Address [facility] Chantal [place]icht[place] [address] Care Team Providers Care Technical Assistance Consultant Name Role Phone Edilma Cornejo MD Primary Care Provider [phone] Encounter Details Date Type Department Care Team (Latest Contact Info) Description 07/03/2023 Travel Social History Tobacco Use Types Packs/Day [...] Info) Description 08/08/2024 9:00 AM EST Appointment [address] [phone] Umu Saucedo RN 08/15/2024 10:45 AM EST TH Visit (TeleHealth) Obstetrics [place] [address] Dara Kelley MD [facility] OBSTETRICS [place] [address] 11/25/2024 Hospital Encounter Birthing [place] [phone] Dara Gonzalez MD [facility] OBSTETRICS [place] [address] 07/12/2025 1:40 PM EST Office Visit Ophthalmology at [place] [address] Bina Agrawal OD [facility] [place] [address] documented as of this encounter Visit Diagnoses Not on filedocumented in this encounter Care Teams Technical Assistance Consultant Relationship Specialty Start Date End Date Edilma Cornejo MD [facility] [place] [address] PCP - General 12/05/22 documented as of this encounter
--- OUTSIDE RECORDS SUMMARY | 2024-07-29 00:23 | XMS_ITS | Encounter Summary ---
Author Organization [facility] Address [facility] [place] [address] Care Team Providers Care Health Safety And Environment Manager Name Role Phone Edilma Cornejo MD Primary Care Provider [phone] Encounter Details Date Type Department Care Team (Late st Contact Info) Description 11/23/2023 Patient Outreach Pediatrics at [address] [address] Maureen Clifton, [facility] [place] [address] Social History Tobacco Use Types Packs/Day Years Used Date Smoking Tobacco: Never Passive Smoke Exposure: Yes Smokeless Tobacco: Never Comments:Patient vapes on oc casion (rechargeable cartridge) Alcohol Use Standard Drinks/Week Comments No 0 (1 standard drink = 0.6 oz pur e alcohol) [facility] Inpatient Questions Answer Date Recorded Does [...] encounter Miscellaneous Notes * Telephone Encounter - Maureen Clifton [facility] - 12/10/2023 4:51 PM EDT Closed referral. Patient is now connected at [facility]. * Telephone Encounter - Maureen Clifton [facility] - 11/23/2023 5:01 PM EDT Called to schedule. Set up th for 11/25 at 11:00am and 12/09/23 at 2:00pm. documented in this encounter Plan of Treatment Upcoming Encounters Date Type Department Care Team (Late st Contact Info) Description 08/08/2024 9:00 AM EST Appointment [address] [address] Umu Saucedo, RN 08/15/2024 10:45 AM EST TH Visit (TeleHealth) Obstetrics [place] [address] Dara Kelley MD [facility] OBSTETRICS [place] [address] 11/25/2024 [place] [address] Dara Gonzalez MD [facility] OBSTETRICS [place] [address] 07/12/2025 1:40 PM EST Office [place] [address] Bina Agrawal OD [facility] [place] [address] documented as of this encounter Visit Diagnoses Diagnosis Depression, unspecified depression type documented in this encounter Care Teams Health Safety And Environment Manager Relationship Specialty Start Date End Date Edilma Cornejo MD [facility] [address] PCP - General 12/05/22 documented as of this encounter
--- OUTSIDE RECORDS SUMMARY | 2024-07-29 00:23 | XMS_ITS | Encounter Summary ---
Author Organization [facility] Address [facility] [place] [address] Care Team Providers Care Metal Fitter Name Role Phone Edilma Cornejo MD Primary Care Provider [phone] Encounter Details Date Type Department Care Team (Latest Contact Info) Description 07/01/2023 2:00 PM EST TH Visit (TeleHealth) Pediatrics at [address] [phone] Maureen Clifton, [facility] [address] Generalized anxiety disorder Social History Tobacco Use Types Packs/Day Years Used Date Smoking Tobacco: Never Passive Smoke Exposure: Yes Smokeless Tobacco: Never Comments:Patient vapes on oc casion (rechargeable cartridge) Alcohol Use Standard Drinks/Week Comments No 0 (1 standard drink = 0.6 oz pur e alcohol) [facility] Inpatient Questions Answer Date [...] * Maureen Clifton, [facility] - 07/01/2023 2:00 PM EST Images from the original note were not included. PEDIATRIC COLLABORATIVE CARE THERAPY PROGRESS NOTE Patient Name: Ely Mahmood Referral Date: 05/05/23 Intervention Session #: 5 Time Spent: 55 Attendees: Ely Mahmood Visit [...] for scheduled appointment. Discussed current functioning and skills to support decision making and anxiety management. She reports that she used skills to end her relationship. She plans to focus on her self care and emotional growth. Including problem solving her friendship needs and addressing depression symptoms. She reports that she struggles to make friendships and she struggles to clean and address ADL's consistently. Focused on skills to build motivation such asbreaking down tasks into manageable chunks. Focused on looking at relationships as a positive problem to solve and also breaking that down into manageable steps. Discussed identifying possible solutio ns, trying them out and then mindfully examining the out comes to learn what repeatable steps are helpful. Objective: Ely arrived to session adequately groomed and appropriately dressed for the weather. Hair today is a selena brown/ blonde color. Ely was engaged and participated mindfully. Last 4 PAVITHRA 7 Scores: 05/18/2023 05/27/2023 06/18/2023 07/03/2023 PAVITHRA-7 Score Only - All PAVITHRA-7 Score (Pt Questionnaire) 12 (Moderate Anxiety) 13 (Moderate Anxiety) 10 (Moderate Anxiety) 12(Moderate Anxiety) PAVITHRA-7 Score 12 8 6 12 No data to display No data to [...] Activities: Details/Summary: [x] Education about anxiety/avoidance CBT skills focused on breaking down problems into manageable tasks/steps. Approach not avoid. Know the problem you are solving. [] Develop [...] Info) Description 08/08/2024 9:00 AM EST Appointment [address] [phone] Umu Saucedo RN 08/15/2024 10:45 AM EST TH Visit (TeleHealth) Obstetrics [place] [address] Dara Kelley MD [facility] [place] [address] 11/25/2024 Hospital Encounter [place] [address] Dara Gonzalez MD [facility] [place] [address] 07/12/2025 1:40 PM EST Office [place] [address] Bina Agrawal, JONELLE [facility] [place] [address] documented as of this encounter Visit Diagnoses Diagnosis Generalized anxiety disorder documented in this encounter Care Teams Metal Fitter Relationship Specialty Start Date End Date Edilma Cornejo MD [facility] [place] [address] PCP - General 12/05/22 documented as of this encounter
--- OUTSIDE RECORDS SUMMARY | 2024-07-29 00:23 | XMS_ITS | Encounter Summary ---
Author Organization [facility] Address [facility] Chantal [place] [address] Care Team Providers Care Jig Boring Machine Operator For Metal Name Role Phone Edilma Cornejo MD Primary Care Provider [phone] Encounter Details Date Type Department Care Team (Latest Contact Info) Description 09/11/2023 Travel Social History Tobacco Use Types Packs/Day [...] Description 08/08/2024 9:00 AM EST Appointment [address] [phone] Umu Saucedo RN 08/15/2024 10:45 AM EST TH Visit (TeleHealth) Obstetrics [place] [address] Dara Kelley MD [facility] OBSTETRICS [place] [address] 11/25/2024 Hospital Encounter Birthing [place] [phone] Dara Gonzalez MD [facility] OBSTETRICS [place] [address] 07/12/2025 1:40 PM EST Office Visit Ophthalmology at [place] [address] Bina Agrawal OD [facility] [place] [address] documented as of this encounter Visit Diagnoses Not on filedocumented in this encounter Care Teams Jig Boring Machine Operator For Metal Relationship Specialty Start Date End Date Edilma Cornejo MD [facility] [place] [address] PCP - General 12/05/22 documented as of this encounter
--- OUTSIDE RECORDS SUMMARY | 2024-07-29 00:23 | XMS_ITS | Encounter Summary ---
Author Organization [facility] Address [facility] [address] Care Team Providers Care Qm Nurse Name Role Phone Edilma Cornejo MD Primary Care Provider [phone] Reason for Visit * Reason Comments Follow-up Pt would like to dis cuss sore throat off and on [id number], worse in last 2 days. Runny nose. Self. Back Pain Ongoing issue Encounter Details Date Type Department Care Team (Late st Contact Info) Description 08/20/2023 4:00 PM EST Office Visit Pediatrics at [address] [phone] Edilma Cornejo MD [facility] [place] [address] Depression, unspecified depression type Social History Tobacco [...] no 06/07/2023 Feels Threatened by Someone no 12/2 09/2022 Feels Unsafe at Home or Work/School no 06/07/2023 Physical Signs of Abuse Present no 06/07/2023 Sex and Gender Information Value Date Recorded Sex Assigned at Female 07/24/2023 9:35 AM EST Gender Identity Female 07/24/2023 9:35 AM EST Sexual Orientation Straight 07/24/2023 9: 35 AM EST documented as of this encounter Last Filed Vital Signs Vital Sign Reading Time Taken Comments Blood Pressure 120/78 08/20/2023 3:38 PM EST Pulse - - Temperature 36.7 ??C (98 ??F) 08/20/2023 3:38 PM EST Respiratory Rate - - Oxygen Saturation - - Inhaled Oxygen Concentration - - Weight 55.1 kg (121 lb 8 oz) 08/20/2023 3:38 PM EST Height 149.9 cm (4' 11) 08/20/2023 3:38 PM EST Body Mass Index 24.54 08/20/2023 3:38 PM EST documented in this encounter Progress Notes * Edilma Cornejo MD - 08/20/2023 4:00 PM EST Assessment: Ely Mahmood is a 18 y.o. who presented today for follow-up of anxiety/depression, and is overall doing well. Denies thoughts of self harm. Ely feels she is in a good place, does not feel depressed, feels anxiety is her main concern right now and anxiety is 3/10 compared to her worst. Did not start taking sertraline 50 mg as agreed last visit. Ely says she took this for 2 days and then forgot. After discussion, feels not needed right now. I am in agreement. Ely has had several visitswhere starting SSRI was discussed with provider and Ely has not taken this medication for more than a few days. Meetings with collaborative care (Maureen Clifton, [facility]) seem to be the most beneficial thing for her right now. Discussed with Melanie today, will book follow-up as Ely cancelled last appointment and didn't respond after she was reached out to. Will discuss possible referral to DBT at next visit with Melanie. Providers still concerned about Ely and possible high risk decisions, but she does seem to be doing better. Engaging in her medical care (apart from Sertraline), has been doing recommended blood work and STI screening. Best thing for her is to re-engage with Melanie. Happy to see her again in clinic at any time should Ely and/or Melanie feel this would be beneficial. Plan: - Has not started SSRI, would like to focus on therapy instead of medication. In agreement with this plan for time being. - HIV testing today (4th gen) - F/u with collaborative care, consider referral to DBT - Continue with IUD Call or return to clinic for: new side-effect concern, medication questions, worsening mood, new SI, other concerns Chief Complaint: Chief Complaint Patient presents with Follow-up Pt would like to discuss sore throat off and on [id number], worse in last 2 days. Runny nose. Self. Back Pain Ongoing issue History of Present Illness: Ely Mahmood, 18yo with PMH anx/depr, presenting for behavioral health follow-up. Anniversary of her ex's passing is in a few days Together for 7 years But feel like she is in a much better place to deal with this, has not be fixated on this IUD - having some spotting and cramping, but she is sticking with it Concerns: Mood: feels much better than her personal worst, thinks she's 3/10 compared to her worst, main thing right now is anxiety Sleep: waking up at 0600 occasionally, works late/nights, sometimes wakes up in the middle of the night Eating: No changes to appetite, low appetite Activities: working, work going well Therapy: Sees Ely Navarro cancelled last appointment, no further f/u booked Medication: took her meds for 2 days, then stopped, did not take rest of month Psychiatry: suppose to have meeting with Matt, had to cancel. Ely will reschedule before she leaves today Behavior: Now dating her boyfriend for 1mo Now looking for place with her boyfriend instead of her sister Anxiety symptoms - lots of fidgeting, just generally feeling stressed Feeling like getting soon, boyfriend bought her a ring already Happy in her new relationship and where she's at Denies any active or passive SI. Denies self harm. Review of Systems: Complete 10 pt review of systems negative except as documented per HPI. PMH: Patient Active Problem List Diagnosis Code CIS [...] major depression F33.0 Generalized anxiety disorder F41.1 Vital Signs: BP 120/78 Temp 36.7 ??C (98 ??F) (Oral) Ht (!) 149.9 cm (4' 11) Wt 55.1 kg (121 lb 8 oz) LMP 07/21/2023 (Exact Date) Comment: pt reports spotting BMI 24.54 kg/m?? PHYSICAL EXAM: General: well-appearing, NAD HEENT: NC/AT, MMM, EOMI CV: [place], well perfused Resp: Speaking comfortably, no increased WOB, symmetric chest rise Neuro: A+Ox3, grossly intact, gait normal, moves all extremities equally, no tremor Psych: well-kempt, clean clothes, makes appropriate eye contact, affect congruent with mood Results Ely Mahmood completed the [employer]creen Lite today. The full list of questions are on file. The following area(s) were assessed: issues of screener- identified concern and further confidential discussion are noted below: 08/20/2023 3:33 PM [facility] Mental Health Score (PHQ9) 9 (Mild Depression) PHQ9 Total Score (Range 0-27) 9 (Mild Depression) GAD7 Questionnaire: 08/20/2023 PAVITHRA-7 Feeling nervous, anxious or on edge. More than half the days Not being able to stop or control worrying. More than half the days Worrying too much about different things. Several days Trouble relaxing. More than half the days Being so restless that it is hard to sit still. Not at all Becoming easily annoyed or irritable. Not at all Feeling afraid as if something awful might happen. Several days PAVITHRA-7 Score 8 (Mild Anxiety) GAD7 Total Score (Range 0-21) 8 (Mild Anxiety) PHQ9 Questionnaire: 08/20/2023 PHQ-9 Patient Reported Responses PHQ9 Total Score (Range 0-27) 9 (Mild Depression) PHQ-9 Score 9 (Mild Depression) Little interest or pleasure Several Days Down, depressed, hopeless Several Days Trouble sleeping More than half the days Tired or no energy Several Days Poor appetite or overeating More than half the days Feeling like a failure More than half the days Trouble concentrating (Adolescent) Not at all Moving or speaking slowly Not at all Would be better off Not at all Thoughts about ending your life (Pt Questionnaire-Adolescent) No Attempted to kill yourself (Pt Questionnaire-Adolescent) No 15 minutes or more was spent on questionnaire completion and review with teen. Edilma Cornejo MD * Precious Moore MD - 08/20/2023 4:00 PM EST I discussed the history and physical exam for Ely Mahmood, a 18 y.o. female here for follow up at the time of or immediately after her visit with Edilma Cornejo MD. Behavioral health follow up today & doing better. Is interested in engaging with behavioral health support - referral made. The assessment and plan were formulated in discussion with me and I agree with them as documented. documented in this encounter Plan of Treatment Upcoming Encounters Date Type Department Care Team (Late st Contact Info) Description 08/08/2024 9:00 AM EST Appointment [address] [phone] Umu Saucedo RN 08/15/2024 10:45 AM EST TH Visit (TeleHealth) [place] [address] Dara Kelley MD [facility] OBSTETRICS [place] [address] 11/25/2024 [facility] [phone] Dara Gonzalez MD [facility] OBSTETRICS [place] [address] 07/12/2025 1:40 PM EST Office Visit Ophthalmology at [place] [phone] Bina Agrawal OD [facility] [place] [address] Scheduled Orders Name Type Priority Associated Diagnoses Orde r Schedule HIV Screen, 4th Generation ([facility] Lab Routine Depression, unspecified depression type As Needed for 10 Occurrences starting 08/20/2023 until 08/19/2024, 1 completed documented as of this encounter Procedures Procedure Name Priority Date/Time Associated Diagnosis Comments HIV SCREEN, 4TH GENERATION ([facility])P ERFORMABLE Routine 08/20/2023 4:54 PM EST Depression, unspecified depression type documented in this encounter Results * HIV Screen, 4th Generation ([facility]) (08/20/2023 4:54 PM EST) HIV Ab/Ag Screen Negative Negative [facility] Comment: This 4th Generation HIV test screens for the presence of the HIV-1 p24 antigen as well as antibodies reactive against HIV-1 and HIV-2. A negative screen does not rule out an acute HIV infection. If acute HIV infection is suspected, testing should be repeated in 2 - 3 weeks or HIV nucleic acid testing performed. HIV Comment Low Risk of HIV Infection [facility] Blood 08/20/2023 4:54 PM EST 08/20/2023 5:17 PM EST Narrative Resulting Agency Comment Spec In Lab Precious Moore MD CHEMISTRY ORDERABLES Performing Organization Address City/State/[facility] Co de Phone Number [facility] [place] [address] documented in this encounter Visit Diagnoses Diagnosis Depression, unspecified depression type documented in this encounter Care Teams Qm Nurse Relationship Specialty Start Date End Date Edilma Cornejo MD [facility] [place] [address] PCP - General 12/05/22 documented as of this encounter
--- OUTSIDE RECORDS SUMMARY | 2024-07-29 00:23 | XMS_ITS | Encounter Summary ---
Author Organization [facility] [place] [address] Care Team Providers Care Ore Miner Blasting Name Role Phone Edilma Cornejo MD Primary Care Provider [phone] Reason for Visit * Reason Comments Pain Throat and collarbon e Encounter Details Date Type Department Care Team (Late st Contact Info) Description 06/07/2023 3:23 AM EST - 06/07/2023 7:27 AM EST [place] [phone] Linda Benito MD Throat pain; Evaluation by medical service required Discharge Disposition: Home Social History Tobacco Use [...] Sign Reading Time Taken Comments Blood Pressure 128/84 06/07/2023 7:00 AM EST Pulse 91 06/07/2023 7:00 AM EST Temperature 36.6 ??C (97.9 ??F) 06/07/2023 3:34 AM ES T Respiratory Rate 16 06/07/2023 3:34 AM EST Oxygen Saturation 99% 06/07/2023 7:00 AM EST Inhaled Oxygen Concentration - - Weight 55.8 kg (123 lb) 06/07/2023 3:34 AM EST Height 149.9 cm (4' 11) 06/07/2023 3:34 AM EST Body Mass Index 24.84 06/07/2023 3:34 AM EST documented in this encounter Discharge Instructions * Discharge Instructions* Luis F Becker MD - 06/07/2023 5:13 AM EST You were seen in the emergency department for throat pain with a completely reassuring evaluation. We discussed the most likely diagnosis and reviewed the results of any appropriate labs or imaging tests that were ordered during your stay. You should follow up with your PCP within 1 week for re-evaluation and to make sure you are improving. Please call your PCP to set up an appointment. Please return to the emergency department if you develop any fevers, chest pain, shortness of breath, feeling like you are going to pass out or passing out, unusual weakness or numbness, blurred or double vision, headache, or have worsening of your current symptoms or develop new symptoms that are concerning to you and require immediate attention. It was a pleasure providing care to you at [facility]! documented in this encounter Medications at Time of Discharge Medication Sig Dispensed Refills Start Date End Date albuteroL 90 mcg/actuation HFA Aerosol Inhaler Inhale 2 puffs into the lungs every 4 hours as needed for Wheezing. Use with spacer 1 each 5 05/29/2023 doxycycline (Vibramycin) 100 mg capsule Take 1 capsule by mouth 2 times daily for 7 days. 14 capsule 06/07/2023 06/14/2023 sertraline (Zoloft) 50 mg tablet Take 1 tablet by mouth daily. 30 tablet 3 05/29/2023 09/11/2023 ibuprofen (Advil) 600 mg tablet 09/10/2022 04/15/2024 norethindrone-ethinyl estradiol (Microgestin 1.5/30) 1.5-30 mg-mcg tabletIndications:Encoun ter for BCP ( control pills) initial prescription Take 1 tablet by mouth daily. 84 tablet 3 09/16/2022 09/11/2023 calcium carbonate (TUMS) 200 mg calcium (500 mg) Tablet, Chewable Take 1 tablet by mouth as needed. 08/20/2023 documented as of this encounter ED Notes * Dana Larsen RN - 06/07/2023 7:23 AM EST Discharge paperwork printed and provided. Return precautions explained, patient verbalizes understanding. Questions encouraged and answered. IV removed, procedure tolerated well. * Linda Benito MD - 06/07/2023 5:59 AM EST ED Attending Brief Note The patient was seen in conjunction with the resident physician. I have independently performed thekey portions of the history and physical exam. I have reviewed the diagnostic studies including labs, imaging studies and EKGs. I have discussed the details of the case with the resident. Brief Summary: 18 y.o. female with past medical history of anxiety and depression, here with concern for abnormal sensation when swallowing as well as discomfort on the right upper side of her chest, where her clavicle meets her sternum. This is rated as 7 out of 10. She states is mostly just a dull annoying feeling that occasionally becomes sharper, primarily when swallowing. Nothing seems to specifically bring on this symptom. She does say that she has had some increased stress and anxiety regarding family issues recently and had her Zoloft prescription increased. She denies any SI or HI. Patient is awake, alert, oriented. Appears a little anxious but not in any acute distress. Respirations even and unlabored. Normal peripheral perfusion. No rash noted. Moves all extremities equally. Basic labs will be obtained, as well as chest x-ray. Patient does have a PCP with whom she is due for an annual physical. Discussed the importance of following up with them sooner rather than later after the ER visit. At this time, patient will be signed out to daytime staff awaiting results of the above workup. I anticipate discharge home with the completion of this workup. Did this case involve critical care? No Linda Benito MD 06/07/23 0602 * Ning Obrien RN - 06/07/2023 5:17 AM EST Pt reports that she has c/o pain 7/10 on her right collar bone proximal to sternum. Pt reports the pain is a dull aching with occasional sharp pain that worsens with swallowing and breathing. Pt attempted to use her inhaler to see if it would help thew pain with no success. Pt reports increased stress and anxiety regarding her parents. Patient recently (05.29.23) had her Zoloft increased from 25-50mg. Pt denies SI/HI. * Luis F Becker MD - 06/07/2023 5:13 AM EST ED Resident Note HPI: Ely Mahmood is a 18 y.o. female who presents to the Emergency Department presenting to theemergency room, no underlying medical issues, occasionally vapes who around midnight felt a throat sensation along with some right-sided clavicular pain. Denies any chest pain shortness of breath abdominal pain urinary symptoms. Denies any proptosis any emotional lability any increase or unintentional weight loss/weight gain. Denies any fever. Presented to the emergency room because she felt likeshe was having some difficulty swallowing. Denies eating any meat or any type of stuck in throat type sensations. ROS as per HPI Vitals: ED Triage Vitals [06/07/23 0334] BP: (!) 133/93 Heart Rate: 85 Resp: 16 Temp: 36.6 ??C (97.9 ??F) Temp src: Oral SpO2: 98 % O2 Device: RA O2 Flow Rate (L/min): n/a Physical Exam Vitals and nursing note reviewed. Constitutional: General: She is not in acute distress. Appearance: She is well-developed. She is not diaphoretic. HENT: Head: Normocephalic and atraumatic. Comments: There is no tenderness to palpation along the thyroid Eyes: Conjunctiva/sclera: Conjunctivae normal. Cardiovascular: Rate and Rhythm: Normal rate and regular rhythm. Heart sounds: Normal heart sounds. Pulmonary: Effort: Pulmonary effort is normal. No respiratory distress. Breath sounds: Normal breath sounds. No wheezing or rales. Abdominal: General: Bowel sounds are normal. There is no distension. Palpations: Abdomen is soft. Tenderness: There is no abdominal tenderness. There is no guarding or rebound. Musculoskeletal: Cervical back: Neck supple. Skin: General: Skin is warm and dry. Neurological: Mental Status: She is alert and oriented to person, place, and time. Cranial Nerves: No cranial nerve deficit. XR Chest One View (Results Pending) Procedures Assessment and Plan: 18 y.o. female with unclear etiology for the throat sensation. There is no tenderness to palpation of the thyroid to suggest a thyroiditis. The patient's labs are still pending at the time of signout. Unlikely to be a respiratory cause the patient's lung sounds are otherwise clear to auscultation though she did take her inhaler earlier this evening but her vital signs here in the ER were otherwise reassuring she was afebrile nontachycardic normotensive. At the time of signout the chest x-ray was also pending. This could be an underlying viral illness as well in the context of her being in a intermediate At the time of signout the patient's final imaging and labs are still pending along with a reevaluation by the morning team. Luis F Becker MD Resident 06/07/23 0516 Associated attestation - Linda Benito MD - 06/07/2023 6:36 AM EST ED ATTENDING ATTESTATION NOTE The patient was seen in conjunction with the resident physician. I have independently performed thekey portions of the history and physical exam. I have reviewed the diagnostic studies including labs, imaging studies and EKGs. I have discussed the details of the case with the resident and agree with the assessment and plan as described in the resident note unless noted below or in my separate note. documented in this encounter Miscellaneous Notes * ED Triage - Cassi Shaw, RN - 06/07/2023 3:25 AM EST Patient ambulatory to ER form work with complaint of right collar bone pain and discomfort at base of throat. Happened wile at work and needed to leave. No known injury, in no distress. Speaking in full sentences. documented in this encounter Plan of Treatment Upcoming Encounters Date Type Department Care Team (Late st Contact Info) Description 08/08/2024 9:00 AM EST Appointment [address] [phone] Umu Saucedo RN 08/15/2024 10:45 AM EST TH Visit (TeleHealth) Obstetrics and Gynecology at [place] [phone] Dara Kelley MD [facility] [place] [address] 11/25/2024 Hospital Encounter Birthing [place] [phone] Dara Gonzalez MD [facility] OBSTETRICS [place] [address] 07/12/2025 1:40 PM EST Office Visit Ophthalmology at [place] [phone] Bina Agrawal OD [facility] [place] [address] documented as of this encounter Procedures Procedure Name Priority Date/Time Associated Diagnosis Comments TSH CASCADE STAT 06/07/2023 6:03 AM EST HEMOGRAM STAT 06/07/2023 6:03 AM EST DIFFERENTIAL, AUTOMATED STAT 06/07/2023 6:03 AM EST CBC (WITH DIFF) STAT 06/07/2023 6:03 AM EST BASIC METABOLIC PANEL STAT 06/07/2023 6:03 AM EST XR CHEST ONE VIEW STAT 06/07/2023 5:2 3 AM EST documented in this encounter Results * (ABNORMAL) Differential, Automated (06/07/2023 6:03 AM EST) Neutrophil % 69.1 % [facility] Neutrophil Absolute 8.00(H) 1.70 - 6.10 x10(3)/mc L [facility] Lymph % 21.1 % [facility] Lymphocytes Abs 2.4 0.9 - 3.2 x10(3)/mc L [facility] Monocyte % 8.6 % [facility] Monocyte Abs 1.0(H) 0.3 - 0.9 x10(3)/mc L [facility] Eos % 0.4 % [facility] Eosinophils Abs 0.0 0.0 - 0.4 x10(3)/mc L [facility] Basophil % 0.5 % [facility] Baso Absolute 0.1 0.0 - 0.1 x10(3)/mc L [facility] Immature Gran % 0.30 % [facility] Comment: Immature granulocytes(IG's)percentage and absolute count will include metamyelocytes, myelocytes, and promyelocytes. Blood smears from CBCs yielding IG's will be scanned manually for concordance. If this scan disagrees with the automated IG or if promyelocytes are noted, a manual differential will be performed. Immature Gran Absolute 0.03 0.00 - 0.04 x10(3)/mc L [facility] Blood 06/07/2023 6:03 AM EST 06/07/2023 6:09 AM EST Narrative Resulting Agency Comment Spec In Lab Luis F Becker MD HEMATOLOGY ORDERABLE S [facility] [place] [address] * (ABNORMAL) Hemogram (06/07/2023 6:03 AM EST) White Blood Cell 11.6(H) 4.0 - 9.5 x10(3)/mc L [facility] Red Blood Cell 5.06 4.00 - 5.21 x10(6)/mc L [facility] Hemoglobin 14.5 11.7 - 15.5 g/dL [facility] Hematocrit 43.9 35.7 - 45.8 % [facility] Mean Cell Volume 86.8 82.6 - 94.4 fL [facility] Mean Cell Hemoglobin 28.7 27.1 - 32.0 pg [facility] Mean Cell Hemoglobin Concentration 33.0 31.7 - 35.0 g/dL [facility] Platelet 379(H) 145 - 357 x10(3)/mc L [facility] RDW Standard Deviation 38.3 37.0 - 46.0 fL [facility] RDW coefficient of variation 12.0 11.5 - 14.1 % [facility] Mean Platelet Volume 9.5 7.6 - 12.9 fL [facility] NRBC% auto 0.0 % [facility] NRBC Absolute 0.000 0.000 - 0.000 x10(3)/mc L [facility] Blood 06/07/2023 6:03 AM EST 06/07/2023 6:09 AM EST Narrative Resulting Agency Comment Spec In Lab Luis F Becker MD HEMATOLOGY ORDERABLE S [facility] [place] [address] * TSH [place] (06/07/2023 6:03 AM EST) Thyroid Stimulating Hormone 3.13 0.27 - 4.20 mcIU/mL [facility] Comment: Reference Interval (mcIU/mL): Females: ??First Trimester: 0.23-3.88 ??Second Trimester: 0.22-3.90 ??Third Trimester: 0.44-4.66 Blood 06/07/2023 6:03 AM EST 06/07/2023 6:09 AM EST Narrative Resulting Agency Comment Spec In Lab Rosalba Dalton MD CHEMISTRY ORDERABLES [facility] [place] [address] * (ABNORMAL) Basic Metabolic Panel (non-fasting) (06/07/2023 6:03 AM EST) Glucose 80 65 - 199 mg/dL [facility] Comment:Diabetes: >=200 mg/d L plus symptoms Blood Urea Nitrogen 9(L) 10 - 20 mg/dL [facility] Creatinine 0.78 0.70 - 1.20 mg/dL [facility] Sodium 139 135 - 145 mmol/L [facility] Potassium 4.2 3.5 - 5.0 mmol/L [facility] Comment: Please note: ??Patients with WBC >100,000 may have falsely elevated Potassium levels. ??For accurate Potassium quantification in these patients send serum separator tube (gold top) for subsequent determinations. ??Contact the Clinical Chemistry Laboratory if there are any questions. Chloride 103 98 - 107 mmol/L [facility] Carbon Dioxide 24 22 - 31 mmol/L [facility] Anion Gap 12 5 - 15 mmol/L [facility] Calcium 9.6 8.5 - 10.5 mg/dL [facility] Est Glomerular Filtration Rate 112 >=60 mL/min/1. 73 m?? [facility] Comment: This patient's estimated GFR was [...] urine creatinine clearance. Assignment of CKD stage 1-5 for patients with an eGFR near the transition point between stages may be based on clinical assessment of muscle mass and symptoms in addition to eGFR. Blood 06/07/2023 6:03 AM EST 06/07/2023 6:09 AM EST Narrative Resulting Agency Comment Spec In Lab Rosalba Dalton MD CHEMISTRY ORDERABLES [facility] [place] [address] * XR Chest One View (06/07/2023 5:23 AM EST) Anatomical Region Laterality Modality Chest N/A Digital Radiogra phy Impressions 06/07/2023 5:47 AM EST Bibasilar opacities and peribronchial cuffing represent small airway disease, aspiration or pneumonia. Preliminary report signed by: Dinesh Ordonez DO at 06/07/2023 5:43 AM I have personally reviewed the image(s) and the resident's interpretation and agree with the findings, Son Ocasio MD at 06/07/2023 5:47 AM Thank you for letting us participate in the care of this patient. ??If you are a health care provider and have any questions regarding this report, please contact the number below. ??For patients who have questions please contact the health child care worker that requested your imaging first. ? Electronically signed by: Son Ocasio MD, [facility] ([phone]), at 06/07/2023 5:47 AM Narrative 06/07/2023 5:47 AM EST EXAMINATION: XR CHEST ONE VIEW CLINICAL HISTORY: 18 yo with upper throat pain and feels short of breath TECHNIQUE: 1 view of the chest portable semiupright rotated COMPARISON: None relevant FINDINGS: Hazy opacities bilateral lower lungs. Mild peribronchial cuffing. No pleural effusion or pneumothorax seen. Cardiomediastinal contours appear within normal limits. Procedure Note Son Ocasio MD - 06/07/2023 EXAMINATION: XR CHEST ONE VIEW CLINICAL HISTORY: 18 yo with upper throat pain and feels short of breath TECHNIQUE: 1 view of the chest portable semiupright rotated COMPARISON: None relevant FINDINGS: Hazy opacities bilateral lower lungs. Mild peribronchial cuffing. No pleural effusion or pneumothorax seen. Cardiomediastinal contours appear within normal limits. IMPRESSION Bibasilar opacities and peribronchial cuffing represent small airwaydisease, aspiration or pneumonia. Preliminary report signed by: Dinesh Ordonez DO at 06/07/2023 5:43 AM I have personally reviewed the image(s) and the resident's interpretationand agree with the findings, Son Ocasio MD at 06/07/2023 5:47 AM Thank you for letting us participate in the care of this patient. If youare a health care provider and have any questions regarding this report,please contact the number below. For patients who have questions please contactthe health child care worker that requested your imaging first. Electronically signed by: Son Ocasio MD, [facility]([phone]), at 06/07/2023 5:47 AM Rosalba Dalton MD IMG DX ORDERABLES documented in this encounter Visit Diagnoses Diagnosis Throat pain Evaluation by medical service required documented in this encounter Care Teams Ore Miner Blasting Relationship Specialty Start Date End Date Edilma Cornejo MD [facility] [place] [address] PCP - General 12/05/22 documented as of this encounter
--- OUTSIDE RECORDS SUMMARY | 2024-07-29 00:23 | XMS_ITS | Encounter Summary ---
Author Organization [facility] Address [facility] Chantal [place] [address] Care Team Providers Care Telephone Directory Deliverer Name Role Phone Edilma Cornejo MD Primary Care Provider [phone] Encounter Details Date Type Department Care Team (Latest Contact Info) Description 11/12/2023 Travel Social History Tobacco Use Types Packs/Day [...] Description 08/08/2024 9:00 AM EST Appointment [address] [phone] Umu Saucedo RN 08/15/2024 10:45 AM EST TH Visit (TeleHealth) Obstetrics [place] [phone] Dara Kelley MD [facility] OBSTETR[place] [address] 11/25/2024 Hospital Encounter Birthing [place] [phone] Dara Gonzalez MD [facility] OBSTET[facility] [place] [address] 07/12/2025 1:40 PM EST Office Visit Ophthalmology at [place] [address] Bina Agrawal OD [facility] [place] [address] documented as of this encounter Visit Diagnoses Not on filedocumented in this encounter Care Teams Telephone Directory Deliverer Relationship Specialty Start Date End Date Edilma Cornejo MD [facility] [place] [address] PCP - General 12/05/22 documented as of this encounter
--- OUTSIDE RECORDS SUMMARY | 2024-07-29 00:23 | XMS_ITS | Encounter Summary ---
Author Organization [facility] Address [facility] [place] [address] Care Team Providers Care Tablet Machine Operator Name Role Phone Edilma Cornejo MD Primary Care Provider [phone] Encounter Details Date Type Department Care Team (Late st Contact Info) Description 10/21/2023 Patient Outreach Pediatrics at [address] [phone] Maureen Clifton, [facility] [place] [address] Social History Tobacco Use Types Packs/Day Years [...] Telephone Encounter - Maureen Clifton [facility] - 10/21/2023 12:01 PM EDT Called to touch base for [facility]. Not able to make contact. Left message for a return call. documented in this encounter Plan of Treatment Upcoming Encounters Date Type Department Care Team (Late st Contact Info) Description 08/08/2024 9:00 AM EST Appointment [address] [phone] Umu Saucedo RN 08/15/2024 10:45 AM EST TH Visit (TeleHealth) Obstetrics and Gynecology at [place] [phone] Dara Kelley MD [facility] OBSTETRICS [place] [address] 11/25/2024 Hospital Encounter Birthing [place] [phone] Dara Gonzalez MD [facility] OBSTETRICS [place] [address] 07/12/2025 1:40 PM EST Office Visit Ophthalmology at [place] [phone] Bina Agrawal, JONEL[facility] [address] documented as of this encounter Visit Diagnoses Diagnosis Depression, unspecified depression type documented in this encounter Care Teams Tablet Machine Operator Relationship Specialty Start Date End Date Edilma Cornejo MD [facility] [place] [phone] PCP - General 12/05/22 documented as of this encounter
--- OUTSIDE RECORDS SUMMARY | 2024-07-29 00:23 | XMS_ITS | Encounter Summary ---
Author Organization [facility] Address [facility] Chantal [place] [address] Care Team Providers Care Advertising Sales Executive Name Role Phone Edilma Cornejo MD Primary Care Provider [phone] Encounter Details Date Type Department Care Team (Latest Contact Info) Description 08/20/2023 Travel Social History Tobacco Use Types Packs/Day [...] Info) Description 08/08/2024 9:00 AM EST Appointment [address] [phone] Umu Saucedo RN 08/15/2024 10:45 AM EST TH Visit (TeleHealth) Obstetrics [place] [phone] Dara Kelley MD [facility] OBST[place] [address] 11/25/2024 Hospital Encounter Birthing [place] [phone] Dara Gonzalez MD [facility] [place]ST[place] [address] 07/12/2025 1:40 PM EST Office Visit Ophthalmology at [place] [address] Bina Agrawal OD [facility] [place] [address] documented as of this encounter Visit Diagnoses Not on filedocumented in this encounter Care Teams Advertising Sales Executive Relationship Specialty Start Date End Date Edilma Cornejo MD [facility] [place] [address] PCP - General 12/05/22 documented as of this encounter
--- OUTSIDE RECORDS SUMMARY | 2024-07-29 00:23 | XMS_ITS | Encounter Summary ---
Author Organization [facility] Address [facility] Chantal [place] [address] Care Team Providers Care Straightener Name Role Phone Edilma Cornejo MD Primary Care Provider Encounter Details Date Type Department Care Team (Latest Contact Info) Description 09/09/2023 Travel Social History Tobacco Use Types Packs/Day [...] Description 08/08/2024 9:00 AM EST Appointment [address] [phone] Umu Saucedo RN 08/15/2024 10:45 AM EST TH Visit (TeleHealth) Obstetrics [place] [address] [facility] OBSTETRICS [place] [address] 11/25/2024 Hospital Encounter Birthing [place] [phone] [facility] OBSTETRICS [place] [address] 07/12/2025 1:40 PM EST Office Visit Ophthalmology at [place] [address] [facility] [place] [address] documented as of this encounter Visit Diagnoses Not on filedocumented in this encounter Care Teams Straightener Relationship Specialty Start Date End Date Edilma Cornejo MD [facility] [place] [address] PCP - General 12/05/22 documented as of this encounter
--- OUTSIDE RECORDS SUMMARY | 2024-07-29 00:23 | XMS_ITS | Encounter Summary ---
Author Organization [facility] Address [facility] [place] [address] Care Team Providers Care Audit Practice Intern Name Role Phone Edilma Cornejo MD Primary Care Provider [phone] Reason for Visit * Reason Comments Back Pain Concerns: back pain since Wednesday 12/20 Encounter Details Date Type Department Care Team (Late st Contact Info) Description 12/25/2023 4:00 PM EDT Office Visit Pediatrics at [address] [phone] Yu Cervantes MD [facility] [place] [address] Acute midline low back pain without sciatica Social History Tobacco Use Types Packs/Day Years Used Date Smoking Tobacco: Never Passive Smoke Exposure: Yes Smokeless Tobacco: Never Comments:Patient vapes on oc casion (rechargeable cartridge) Alcohol Use Standard Drinks/Week Comments No 0 (1 standard drink = 0.6 oz pur e alcohol) [facility] Inpatient Questions Answer Date Recorded Does Anyone [...] Sign Reading Time Taken Comments Blood Pressure 136/64 12/25/2023 3:54 PM EDT Pulse - - Temperature - - Respiratory Rate - - Oxygen Saturation - - Inhaled Oxygen Concentration - - Weight 54.8 kg (120 lb 12.8 oz) 12/25/2023 3:54 PM EDT Height - - Body Mass Index 23.79 11/12/2023 11:14 AM EDT documented in this encounter Progress Notes * Yu Cervantes MD - 12/25/2023 4:00 PM EDT Assessment: No problem-specific Assessment & Plan notes found for this encounter. Ely is a 18 year old with a PMHx significant for scoliosis here for 5 days of spinal back pain. Unclear etiology of what is causing her spinal pain. There could have been an injury that related to her recent increase in sexual activity. Pinching pain sounds neuropathic however there is no radiating pain or other neurologic symptoms. Does not appear to be muscular in origin as she has no musculartenderness and has full ROM. No concern for infectious etiology as she has had no fever. Sudden onset neuropathic pain could be caused by a herniated disc, some kind of trauma, or compression of her spine caused by a bleed or neoplasm. Her story is not consistent with any of these. We will get a xray of her spine today to look for bony changes. Recommended rest and symptomatic care andclose phone follow up. Plan: - spinal xray today - ibuprofen TID with food - heat as needed - rest for the next few days - gentle stretching - if no improvement consider referral to orthopedics Return to Clinic for: call next week with update, f/u in person prn Chief Complaint: Chief Complaint Patient presents with Back Pain Concerns: back pain since Wednesday 12/20 History of Present Illness: - pain started 5 days ago - wasn't doing anything when it started, was sitting still - pinching or throbbing pain - reports pain is central, lower back, on her spine in the L1-4 level - worse at different times - no trigger she can pinpoint - no position feels better - tried menthol rub, heat, doans extra strength (NSAID) didn't help - pain has come and gone and is getting progressively worse - seems to happen more at night - really bad last night - weight fluctuating a lot recently - no radiation of pain, sometimes starts with abdominal cramping - thinks she may have had UTI before this all started that resolved on its own. At that time she had pain with peeing, blood in her urine, and increased frequency - no pain with urination, no urgency, no increased frequency - no numbness or tingling - no incontinence - no fever - has been interfering with her life - sexually active with a male partner. Recent increase in sexual activity because they hadn't seen each other in a while - has had scoliosis since born - after 15 they spaced out her xrays because it wasn't worsening Review of Systems: ROS positive for back pain PMH: Scoliosis Vital Signs: BP 136/64 Wt 54.8 kg (120 lb 12.8 oz) LMP 12/11/2023 (Exact Date) BMI 23.79 kg/m?? PHYSICAL EXAM: Physical Exam General: alert, well appearing, cooperative with exam HEENT: NC/AT, PERRL, MMM CV: RRR, no m/r/g, S1, S2, 2+ peripheral pulses Pulm: no increased WOB, CTAB, no wheezes, crackles, or rhonchi Abd: soft, non-distended, positive bowel sounds, non-tender to palpation, no hepato-/spleno-megaly Skin: no rashes, abrasions, or lesions noted. No skin findings on her back Neuro: grossly intact, no focal deficits, sensation intact and symmetric b/l, reflexes 2+, proprioception intact Psych: normal mood and behavior MSK: No gross abnormalities noted on her back No spinal or paraspinal tenderness to palpation Full rotation ROM of back On toe touch R side of back is higher than L side * Bessie Macias MD - 12/25/2023 4:00 PM EDT I saw and evaluated the patient with the resident . I have reviewed the medical records and the patient's history during the visit and I agree with the details as written. My physical examination confirms the findings. The assessment and plan were formulated in discussion with me at the time of the visit and I agree with them as documented. Bessie Macias MD documented in this encounter Plan of Treatment Upcoming Encounters Date Type Department Care Team (Late st Contact Info) Description 08/08/2024 9:00 AM EST Appointment [address] [phone] Umu Saucedo, RN 08/15/2024 10:45 AM EST TH Visit (TeleHealth) Obstetrics and Gynecology at [place] [phone] Dara Kelley MD [facility] [address] OBST[place]ICS [place] [address] 11/25/2024 Hospital Encounter Birthing [place] [phone] Dara Gonzalez MD [facility] [place] [address] 07/12/2025 1:40 PM EST Office Visit Ophthalmology at [place] [phone] Bina Agrawal OD [facility] OPHTHALMOLOGY [place] [phone] documented as of this encounter Results * XR Lumbar Spine 2 Or 3 Views (Generic) (12/25/2023 5:31 PM EDT) WORKSTATION ID [id number] RAD Anatomical Region Laterality Modality L-spine N/A [...] who have questions please contact the health behavioral health care manager that requested your imaging first. ? Electronically signed by: Nell Nieto MD, [facility] ([phone]), at 12/25/2023 5:59 PM Narrative 12/25/2023 5:59 PM EDT EXAMINATION: XR [...] patients who have questions please contactthe health behavioral health care manager that requested your imaging first. Electronically signed by: Nell Nieto MD, [facility]([phone]), at 12/25/2023 5:59 PM Bessie Macias MD IMG DX ORDERABLES documented in this encounter Visit Diagnoses Diagnosis Acute midline low back pain without sciatica Acute midline low back pain without sciatica documented in this encounter Care Teams Audit Practice Intern Relationship Specialty Start Date End Date Edilma Cornejo MD [facility] [place] [address] PCP - General 12/05/22 documented as of this encounter
--- OUTSIDE RECORDS SUMMARY | 2024-07-29 00:23 | XMS_ITS | Encounter Summary ---
Author Organization [facility] Address [facility] [place] [address] Care Team Providers Care Grounds Maintenance Worker Name Role Phone Edilma Cornejo MD Primary Care Provider [phone] Reason for Referral * Consultation (Urgent) - Closed Specialty Diagnoses / Procedures Referred By Contac t Referred To Contact Obstetrics and Gynecology Diagnoses Encounter for routine adult health examination without abnormal findings Edilma Cornejo MD [facility] [place] [address] Edilma Patel, PA [address] OB[place] [address] Referral ID Status Reason Start Date Expiration Date V isits Requested Visits Authorized [id number] Closed Consult, Test & Treat 07/22/2023 07/21/2024 1 1 Reason for Visit * Reason Comments Annual Exam No concernsNo recent ER visits Encounter Details Date Type Department Care Team (Late st Contact Info) Description 07/22/2023 2:30 PM EST Office Visit Pediatrics at [address] [phone] Edilma Cornejo MD [facility] [place] [address] Encounter for routine adult health examination without abnormal findings (Primary Dx) Social History Tobacco Use Types Packs/Day Years [...] Sign Reading Time Taken Comments Blood Pressure 126/60 07/22/2023 2:05 PM EST Pulse - - Temperature - - Respiratory Rate - - Oxygen Saturation - - Inhaled Oxygen Concentration - - Weight 55.2 kg (121 lb 12.8 oz) 07/22/2023 2:05 PM EST Height 150.5 cm (4' 11.25) 07/22/2023 2:[address] Body Mass Index 24.39 07/22/2023 2:05 PM EST documented in this encounter Patient Instructions * Patient Instructions* Edilma Cornejo MD - 07/22/2023 2:30 PM EST Images from the original note were not included. Plan: - STI urine - start 50 mg sertraline - set timer on phone 9pm to take sertraline - Labs - LDL, Beta-HCG - follow-up with Dr. Cornejo in 4 weeks time for med check - Referral to [facility] for IUD placement How You Are Doing Enjoy spending time with your family. Find activities you are really interested in, such as sports, theater, or volunteering. Try to be responsible for your schoolwork or work obligations. Always talk through problems and never use violence. If you get angry with someone, try to walk away. If you feel unsafe in your home or have been hurt by someone, let us know. Hotlines and community agencies can also provide confidential help. Talk with us if you are worried about your living or food situation. Community agencies and programs such as [facility] can help. Don???t smoke, vape, or use drugs. Avoid people who do when you can. Talk with us if you are worried about alcohol or drug use in your family. Your Feelings Most people have ups and downs. If you are feeling sad, depressed, nervous, irritable, hopeless, orangry, let us know or reach out to another health home care music therapist. Figure out healthy ways to deal with stress. Try your best to solve problems and make decisions on your own. Sexuality is an important part of your life. If you have any questions or concerns, we are here foryou. Healthy Behavior Choices Avoid using drugs, alcohol, tobacco, steroids, and diet pills. Support friends who choose not to use. If you use drugs or alcohol, let us know or talk with another trusted adult about it. We can help you with quitting or cutting down on your use. Make healthy decisions about your sexual behavior. If you are sexually active, always practice safe sex. Always use control along with a condom to prevent and sexually transmitted infections. All sexual activity should be something you want. No one should ever force or try to convince you. Protect your hearing at work, home, and concerts. Keep your earbud volume down. Your Daily Life Visit the dentist at least twice a year. [place] your teeth at least twice a day and floss once a day. Be a healthy eater: Have vegetables, fruits, lean protein, and whole grains at meals and snacks. Limit fatty, sugary, salty foods that are low in nutrients, such as candy, chips, and ice cream. Eat when you???re hungry. Stop when you feel satisfied. Eat breakfast. Drink plenty of water. Make sure to get enough calcium every day: Have 3 or more servings of low-fat (1%) or fat-free milk and other low-fat dairy products, such as yogurt and cheese. Women: Make sure to eat foods rich in folate, such as fortified grains and dark- green leafy vegetables. Aim for at least 1 hour of physical activity every day. Wear safety equipment when you play sports. Get enough sleep. Talk with us about managing your health care and insurance as an adult. Staying Safe Always be a safe and cautious electric truck driver: Insist that everyone use a lap and shoulder seat belt. Limit the number of friends in the car and avoid driving at night. Avoid distractions. Never text or talk on the phone while you drive. Do not ride in a vehicle with someone who has been using drugs or alcohol. If you feel unsafe driving or riding with someone, call someone you trust to drive you. Wear helmets and protective gear while playing sports. Wear a helmet when riding a bike, a motorcycle, or an ATV or when skiing or skateboarding. Always use sunscreen and a hat when you???re outside. Fighting and carrying weapons can be dangerous. Talk with your parents, teachers, or doctor about how to avoid these situations. documented in this encounter Progress Notes * Edilma Cornejo MD - 07/22/2023 2:30 PM EST Images from the original note were not included. Subjective: Patient ID: Ely Mahmood is a 18 y.o. female. HPI Ely Mahmood is a 18 y.o. here today for: Chief Complaint Patient presents with Annual Exam No concerns No recent ER visits Accompanied by: herself Problem list updates: No Additional Concerns/Interval History: Never started 50mg sertraline, stopped taking it instead of increasing it when this was discussed at last visit Missed one dose and then felt unmotivated to continue Partner recently commit suicide No thoughts of actively hurting herself But does report feeling she would better off on occasion Health Maintenance and Age Appropriate Review of Systems: Health Maintenance: per AAP Bright Future Guidelines: Comments Prompts Menses Irregular periods Patient's last menstrual period was 06/21/2023. 2 years ago and miscarried Has tried pill, patch, implant, ring Doesn't like systemic hormones Discontinued nexplannon 2/2 spotting Infrequent condom use Multiple partners in past year Discussed idea of becoming and Ely agreed that now is probably not the best time for that Wants to try hormonal IUD Menarche, LMP, regular cycles Dental Sees dentist Working on brushing BID BID brush, flossing, dentist Home Living with grandparents and sister Tough home situation Sister is 1 year younger Would like to move out Feels like it would be healthier Thinks her Gram puts her down Feels like a disappointment Dad asking her for money, addict Dealing with a lot of big issues/life stressors How are things at home? 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 Strengths? Challenges? Future goals? 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 Sleep Tough time sleeping Night owl Hours per night? Pre-Sports Eval: Consider cardiology referral if concerns about the following table or if the following are present on exam: HTN, heart murmur, abnormal femoral pulses, stigmata of Marfan's Yes No Exertional chest pain [] [x] Exertional dyspnea/SOB [x] [] Unexplained syncope (excluding vasovagal) [] [x] Previous head injury or concussion [] [x] Hx of fractures/sprains [] [x] FHx of premature sudden <50yo or other cardiac [] [x] (long QT, Marfan, arrhythmia, HCM) Comments for abnormal: exercise induced asthma, has albuterol prn Uncle recently of heart attack, age 49y Ely Mahmood completed the DartScreen (comprehensive health screener) today. The full list of questions are on file. The following area(s) were assessed: issues of screener-identified concernand further confidential discussion are noted below: Relevant Dart Screen concerns: GAD7 Responses: Today's value 07/22/2023 PAVITHRA-7 Responses GAD7 Total Score (Range 0-21) 5 (Mild Anxiety) 9 (Mild Anxiety) PAVITHRA-7 Score 5 9 PAVITHRA-7 Score (Pt Questionnaire) 13 (Moderate Anxiety) 9 (Mild Anxiety) Nervous, anxious More than half the days Unable to stop worrying More than half the days Worrying about different things Several days Several days Trouble relaxing Several days Several days Restless Not at all Not at all Easily annoyed, irritable Several days Several days Afraid something awful will happen More than half the days More than half the days PHQ9 Questionnaire Data: Today's value 07/22/2023 PHQ-9: Responses Post 10/13/22 Conversion PHQ-9 Score 13 (Moderate Depression) 13 (Moderate Depression) Little interest or pleasure More than half the days More than half the days Down, depressed, hopeless More than half the days More than half the days PHQ-2 Subscore 4 4 Trouble sleeping More than half the days More than half the days Tired or no energy Several Days Several Days Poor appetite or overeating Several days Several days Feeling like a failure Nearly every day Nearly every day Trouble concentrating (Adolescent) Several days Several days Moving or speaking slowly Not at all Not at all Would be better off Several Days Several Days 15 minutes or more was spent on questionnaire completion and review with teen. Social/Family History Any changes to Social or Family history today? Yes [] No [x] Not Reviewed [] Comment: Vitals: 07/22/23 1405 BP: 126/60 Weight: 55.2 kg (121 lb 12.8 oz) Height: (!) 150.5 cm (4' 11.25) Blood pressure %olive are not available for patients who are 18 years or older. 38 %ile based on CDC (Girls, 2-20 Years) broevp-sag-mia data based on Weight recorded on 07/22/2023. 2 %ile based on CDC (Girls, 2-20 Years) Hkljwqu-kcl-yet data based on Stature recorded on 07/22/2023. Body mass index is 24.39 kg/m??. 75 %ile based on CDC (Girls, 2-20 Years) BMI-for-age based on bodymeasurements available as of 07/22/2023. Objective: General: well appearing in NAD HEENT: NC/AT, mmm, PERRL, EOMI, no nasal secretions, eyes without conjunctival injection, drainage/crustiness CV: rrr, no murmurs, 2+ distal pulses, cap refill <2 Resp: good air entry, CTAB, no increased WOB, no wheezing, crackles Abd: active bowel sounds, soft, non tender, no masses, no HSM MS: DARLENEEW, grossly normal strength Neuro: alert, oriented, normal tone, CN II-XII grossly intact Skin: no rashes Assessment and Plan: Healthy adolescent. Dealing with a lot of big issues, challenging family situation. Acute concern that she may become . Is not on contraception for 10 months now. Sexually active with infrequent condom use. Discussed contraception options today and she is agreeable to trying Progesterone IUD. We discussed how a would affect her life at this time and she was in agreement that she would Like to be more settled financially, mentally, and professionally before becoming . Ely will reach out to [facility] electrical supervisor to have this done as she already has a provider there. Will also contact them myself to ensure there are no miscommunications. Plan: - GC/Chl urine - start 50 mg sertraline - set timer on phone 9pm to take sertraline - Labs - LDL, Beta-HCG - follow-up in 4 weeks time for med check - Referral to [facility] for IUD placement Additional concerns identified: No problem-specific Assessment & Plan notes found for this encounter. Growth Parameters: BMI =75 %ile based on CDC (Girls, 2-20 Years) BMI-for-age based on body measurements available as of 07/22/2023. BMI < 5% [] BMI 5-85% [x] BMI 85%- 95% [] BMI 95-99% [] BMI >99% [] Immunizations: Immunization record reviewed: UTD Patient and family was counseled on benefits, risks and complications for all vaccines and components as listed in the immunization category of the patient record and patient/family was given VIS foreach vaccine component. Recommended screening: GC/CT (urine based testing) universal screening for 15+ Sent [x] Not sent [] No orders of the defined types were placed in this encounter. Follow up: Return in one year for annual exam. * Samantha Whalen MD - 07/22/2023 2:30 PM EST The case was discussed in person at the time of the visit or immediately after the visit. The assessment and plan were formulated in discussion with me and I agree with them as documented. I have reviewed the history, physical exam, assessment and plan with the resident. Major issues discussed today: 18yo seen for annual physical. Discussed contraception - interested in IUD, already established with electrical supervisor so will reach out to them. Also discussed mental health - no current safety concerns, will start previously prescribed sertraline and follow up in 4 weeks. Samantha Whalen MD documented in this encounter Plan of Treatment Upcoming Encounters Date Type Department Care Team (Late st Contact Info) Description 08/08/2024 9:00 AM EST Appointment [address] [phone] Umu Saucedo RN 08/15/2024 10:45 AM EST TH Visit (TeleHealth) Obstetrics and Gynecology at [place] [phone] Dara Kelley MD [facility] [place] [address] 11/25/2024 Hospital Encounter Birthing [place] [phone] Dara Gonzalez MD [facility] [place] [address] 07/12/2025 1:40 PM EST Office [place] [address] Bina Agrawal OD [facility] [place] [address] documented as of this encounter Procedures Procedure Name Priority Date/Time Associated Diagnosis Comments AMB REFERRAL TO OB-MORTICIAN INVESTIGATOR Urgent 07/24/2023 10:35 AM EST Encounter for routine adult health examination without abnormal findings BETA HCG, QUANTITATIVE Routine 07/22/2023 3:44 PM EST Encounter for routine adult health examination without abnormal findings LIPID PANEL (REFLEX DIRECT LDL) Routine 07/22/2023 3:44 PM EST Encounter for routine adult health examination without abnormal findings GC/CHLAMYDIA Routine 07/22/2023 3:18 PM EST Encounter for routine adult health examination without abnormal findings documented in this encounter Results * Referral to [facility]-Ring Spinner (07/24/2023 10:35 AM EST) Samantha Whalen MD OUTPATIENT REFERRAL ORDERABLES * Beta HCG, quantitative (07/22/2023 3:44 PM EST) Beta Human Chorionic Gonadotropin, Quantitative <1 mlU/ML [facility] Comment: REFERENCE RANGES NON- FEMALE: ??Less than 5 mIU/mL POSTMENOPAUSAL FEMALE: ??Less than 8 mIU/mL ? -- FEMALES -- Weeks of ? HCG range ??(mIU/mL) ? 3 weeks ? 5.8 - 71.2 ? 4 weeks ? 9.5 - 750 ? 5 weeks ? 217 - 7,138 ? 6 weeks ? 158 - 31,795 ? 7 weeks ? 3,447 - 163,563 ? 8 weeks ? 32,065 - 149,571 ? 9 weeks ? 63,803 - 151,410 ?10 weeks ? 46,509 - 186,977 ?12 weeks ? 27,832 - 210,612 ?14 weeks ? 13,950 - 62,530 ?15 weeks ? 12,039 - 70,971 ?16 weeks ? 9,040 - 56,451 ?17 weeks ? 8,175 - 89,868 ?18 weeks ? 8,314 - 09,857 This result was generated using a Cameron Arielle immunoassay. ??Results obtained from other methods or manufacturers cannot be used interchangeably with this method. Blood 07/22/2023 3:44 PM EST 07/22/2023 3:55 PM EST Narrative Resulting Agency Comment Spec In Lab Samantha Whalen MD CHEMISTRY ORDERABLE S [facility] [place] [address] * Lipid Panel (Reflex Direct LDL) (07/22/2023 3:44 PM EST) Cholesterol, Total 195 mg/dL [facility] Comment: Lower Risk: <200 mg/dL Average Risk: 200-239 mg/dL Higher Risk: >uw=083 mg/dL Triglyceride 126 mg/dL [facility] Comment: Average Risk/Lower Risk: <150 mg/dL Borderline High Risk: 150-199 mg/dL High Risk: 200-499 mg/dL Very High Risk: >va=565 mg/dL HDL Cholesterol 54 mg/dL [facility] Comment: Males: ?? Higher Risk: <40 mg/dL Females: ?? Higher Risk: <50 mg/dL LDL Cholesterol 116 mg/dL [facility] Comment: Lowest Risk: <100 mg/dL Lower Risk: 100-129 mg/dL Borderline High Risk: 130-159 mg/dL High Risk: 160-189 mg/dL Very High Risk: >mm=448 mg/dL Cholesterol/HDL Ratio 3.6 ratio [facility] Lipid Interpretation See Note [facility] Comment: Lipid management should be guided by a patient? s ASCVD risk, goals and preferences. ACC/AHA Guidelines recommend high intensity statin if clinical ASCVD or LDL greater than or equal to 190 mg/dL. http://Metamarkets.com/TRQ-WDN-Zhepsqdis Adults aged 40-75 with LDL 70-189 mg/dL should have their 10 year ASCVD risk estimated with the ACC/AHA ASCVD risk senior estimator http://tools.acc.org/CAFLN-Thoz-Fiqsspail/ Statin should be discussed if risk greater than or equal to 7.5% in non-diabetics. With diabetes, moderate intensity statin is recommended if risk less than 7.5%, high intensity if risk greater than or equal to 7.5%. Annual lipid monitoring on statins is not necessary. Evaluate secondary causes of Triglycerides greater than 500 mg/dL or LDL greater than 190 mg/dL: See table 6 of ACC/AHA Guideline. Lifestyle modification is a critical component of ASCVD risk reduction. Blood 07/22/2023 3:44 PM EST 07/22/2023 3:55 PM EST Narrative Resulting Agency Comment Spec In Lab Samantha Whalen MD CHEMISTRY ORDERABLE S Performing Organization Address City/[facility] Co de Phone Number [facility] [place] [address] * GC/Chlamydia Urine (07/22/2023 3:18 PM EST) GC Gene Amp Negative Negative [facility] Comment: Eye specimens are not an FDA-cleared source for this testing. The performance of this assay with eye specimens has been validated in-house. GC Source Urine [facility] Chlamydia Gene Amp Negative Negative [facility] Comment: Eye specimens are not an FDA-cleared source for this testing. The performance of this assay with eye specimens has been validated in-house. Chlm Source Urine [facility] Urine 07/22/2023 3:18 PM EST 07/22/2023 5:06 PM EST Narrative Resulting Agency Comment Spec In Lab Samantha Whalen MD MICROBIOLOGY - GENE RAL ORDERABLES Performing Organization Address [facility] Co de Phone Number [facility] [place] [address] documented in this encounter Visit Diagnoses Diagnosis Encounter for routine adult health examination without abnormal findings- Primary documented in this encounter Care Teams Grounds Maintenance Worker Relationship Specialty Start Date End Date Edilma Cornejo MD [facility] [place] [address] PCP - General 12/05/22 documented as of this encounter
--- OUTSIDE RECORDS SUMMARY | 2024-07-29 00:24 | XMS_ITS | Encounter Summary ---
Author Organization [facility] [place] [address] Care Team Providers Care Bill Cutter Name Role Phone Edilma Cornejo MD Primary Care Provider [phone] Encounter Details Date Type Department Care Team (Late st Contact Info) Description 05/12/2023 Patient Outreach Pediatrics at [address] [phone] Maureen Clifton [facility] [place] [address] Social History Tobacco Use Types Packs/Day Years [...] Notes * Telephone Encounter - Maureen Clifton [facility] - 05/12/2023 1:33 PM EST Spoke briefly with Ely. Scheduled for an appointment on 05/18/23 2:00pm. documented in this encounter Plan of Treatment Upcoming Encounters Date Type Department Care Team (Late st Contact Info) Description 08/08/2024 9:00 AM EST Appointment [address] [phone] Umu Saucedo, RN 08/15/2024 10:45 AM EST TH Visit (TeleHealth) Obstetrics [place] [address] Dara Kelley MD [facility] [place]ST[place] [address] 11/25/2024 [place] [address] Dara Gonzalez MD [facility] OBST[place] [address] 07/12/2025 1:40 PM EST Office Visit Ophthalmology at [address] Bina Agrawal OD [facility] [place] [address] documented as of this encounter Visit Diagnoses Diagnosis Depression, unspecified depression type documented in this encounter Care Teams Bill Cutter Relationship Specialty Start Date End Date Edilma Cornejo MD [facility] [place] [address] PCP - General 12/05/22 documented as of this encounter
--- OUTSIDE RECORDS SUMMARY | 2024-07-29 00:24 | XMS_ITS | Encounter Summary ---
Author Organization [facility] Address [facility] [place] [address] Care Team Providers Care Community Living Specialist Name Role Phone Edilma Cornejo MD Primary Care Provider [phone] Reason for Referral * Psychiatric (Routine) - Closed Specialty Diagnoses / Procedures Referred By Contac t Referred To Contact Pediatrics Diagnoses Anxiety Depression, unspecified depression type Tangela Rodrigues MD [facility] [place] [address] [facility] [address] Referral ID Status Reason Start Date Expiration Date V isits Requested Visits Authorized [id number] Closed Consult, Test & Treat 05/05/2023 05/04/2024 1 1 * Consultation (Routine) - Closed Specialty Diagnoses / Procedures Referred By Contac t Referred To Contact Pediatrics Diagnoses Anxiety Depression, unspecified depression type Tangela Rodrigues MD [facility] [place] [address] [facility] [address] [place], [place] [phone] Referral ID Status Reason Start Date Expiration Date V isits Requested Visits Authorized [id number] Closed Care Management/S ocial Work 05/02/2023 05/01/2024 1 1 Reason for Visit * Reason Comments Follow-up Here with alone. Pat ient states nothing of any new concern today. Encounter Details Date Type Department Care Team (Late st Contact Info) Description 05/01/2023 2:00 PM EST Office Visit Pediatrics at [address] [phone] Tangela Rodrigues MD [facility] [place] [place] [address] family history of cardiac disease; Unprotected sex; Anxiety; Depression, unspecified depression type Social History Tobacco Use Types Packs/Day Years Used Date Smoking Tobacco: Never Passive Smoke Exposure: Yes Smokeless Tobacco: Never Tobacco Cessation:Counseling Given: Not Answered Comments:Patient vapes on occasion (rechargeable cartridge) Alcohol Use Standard Drinks/Week Comments [...] Sign Reading Time Taken Comments Blood Pressure 114/84 05/01/2023 1:59 PM EST Pulse - - Temperature - - Respiratory Rate - - Oxygen Saturation - - Inhaled Oxygen Concentration - - Weight 56.5 kg (124 lb 8 oz) 05/01/2023 1:59 PM EST Height 150.2 cm (4' 11.13) 05/01/2023 1:[address] Body Mass Index 25.03 05/01/2023 1:59 PM EST documented in this encounter Progress Notes * Tangela Rodrigues MD - 05/01/2023 2:00 PM EST Assessment: Ely is a 18 yo who presents with worsening mental health concerns of anxiety and depression. PHQ-9is a 17 today (moderate) and GAD7 is a 14 (moderate). Has had significant stressors with friendships/relationships and losing a partner in the spring which she now feels she has not been able to grieve and process. She feels safe going home today. Given significant symptoms today, discussed initiating counseling (including grief counseling) and medication today which she is in agreement with close follow up. Given patient's additional concerns of unprotected sex with new partner will perform std testing today and given family history of cardiac disease will obtain lipid panel today. Plan: - start sertraline 25mg daily - follow up 1 month for medication check, may need to titrate medication at that visit - referral to embedded mental health provider - referral to resource team for counseling options - lipid panel today - gc/chalymdia testing today - flu and covid vaccine today Return to Clinic for: one month, sooner if worsening Chief Complaint: Chief Complaint Patient presents with Follow-up Here with alone. Patient states nothing of any new concern today. History of Present Illness: Ely is a 18 yo here for mental health follow up. - she reports her mental health has gone down hill - has been emotional and has become distant from people (for example someone she was dating) - haven't dealt with losing her ex - were previously together for 7 years, broke up last winter andthen he killed himself this past August; she feels that she still has not grieved over it - she is trying to make more friends, but reports she is in the process of losing a friend because his girl friend does not like her, Ely has reached out to her friend by contacting his girl friend and aunt - she feels like a disappointment for her grand parents - after she broke up with her recent ex, Ely states was was told that they feel like they have not raised a good person (she states she ended the relationship because it did not feel right) - Ely feels like she is hurting people end relationship - enjoys leonora - has been talking to some recent exes - describes her mood as bored, numb, down - not sleeping well as having a hard time falling and staying asleep, does use her x box before bed - appetite not the best, sometimes just not hungry - not working with couQuantitative Medicineor, previously on medication but not currently - reports thoughts of wanting to harm her self by cutting, cut herself two times a month ago on wrist (has not hurt herself since) - no hi - feels safe going home today - anxious daily - 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 Is off control as of two weeks ago. Has a new partner; her partner was tested but she reports unprotected sexual activity. Also requesting cardiac screening given significant family history of cardiac disease. Review of Systems: see hpi Vital Signs: BP 114/84 Ht (!) 150.2 cm (4' 11.13) Wt 56.5 kg (124 lb 8 oz) LMP 04/20/2023 (Exact Date) BMI 25.03 kg/m?? PHYSICAL EXAM: General: in NAD, pleasant HEENT: NC/AT, no nasal secretions, eyes without conjunctival injection CV: rrr, no murmurs Resp: no increased WOB Abd: active bowel sounds, soft, non tender MS: MAEW, grossly normal strength Neuro: alert, CN II-XII grossly intact Tangela Rodrigues MD PGY-2 05/01/23 * Samantha Whalen MD - 05/01/2023 2:00 PM EST The case was discussed in person at the time of the visit or immediately after the visit. The assessment and plan were formulated in discussion with me and I agree with them as documented. I have reviewed the history, physical exam, assessment and plan with the resident. Samantha Whalen MD documented in this encounter Miscellaneous Notes * Addendum Note - Tangela Rodrigues MD - 05/01/2023 2:00 PM ESTAddended by: TANGELA RODRIGUES on: 05/05/2023 01:46 PM Modules accepted: Orders documented in this encounter Plan of Treatment Upcoming Encounters Date Type Department Care Team (Late st Contact Info) Description 08/08/2024 9:00 AM EST Appointment [address] [phone] Umu Saucedo RN 08/15/2024 10:45 AM EST TH Visit (TeleHealth) Obstetrics and Gynecology at [place] [phone] Dara Kelley MD [facility] DR OBSTETRICS [place] [address] 11/25/2024 Hospital Encounter Birthing [place] [phone] Dara Gonzalez MD [facility] OBSTETRICS [place] [address] 07/12/2025 1:40 PM EST Office Visit Ophthalmology at [place] [phone] Bina Agrawal OD [facility] [place] [address] Scheduled Referrals Name Type Priority Associated Diagnoses Orde r Schedule Referral to [facility] Pedi Resource Outpatient Referral Routine Anxiety Depression, unspecified depression type Ordered: 05/02/2023 Referral to Pediatric Behavioral Health Clinician Outpatient Referral Routine Anxiety Depression, unspecified depression type Ordered: 05/05/2023 documented as of this encounter Procedures Procedure Name Priority Date/Time Associated Diagnosis Comments LIPID PANEL (REFLEX DIRECT LDL) Routine 05/01/2023 3:24 PM EST family history of cardiac disease GC/CHLAMYDIA Routine 05/01/2023 3:15 PM EST Unprotected sex documented in this encounter Results * Lipid Panel (Reflex Direct LDL) (05/01/2023 3:24 PM EST) Cholesterol, Total 293 mg/dL [facility] Comment: Lower Risk: <200 mg/dL Average Risk: 200-239 mg/dL Higher Risk: >no=290 mg/dL Triglyceride 153 mg/dL [facility] Comment: Average Risk/Lower Risk: <150 mg/dL Borderline High Risk: 150-199 mg/dL High Risk: 200-499 mg/dL Very High Risk: >el=674 mg/dL HDL Cholesterol 55 mg/dL [facility] Comment: Males: ?? Higher Risk: <40 mg/dL Females: ?? Higher Risk: <50 mg/dL LDL Cholesterol 207 mg/dL [facility] Comment: Lowest Risk: <100 mg/dL Lower Risk: 100-129 mg/dL Borderline High Risk: 130-159 mg/dL High Risk: 160-189 mg/dL Very High Risk: >ic=153 mg/dL Cholesterol/HDL Ratio 5.3 ratio [facility] Lipid Interpretation See Note [facility] Comment: Lipid management should be guided by a patient? s ASCVD risk, goals and preferences. ACC/AHA Guidelines recommend high intensity statin if clinical ASCVD or LDL greater than or equal to 190 mg/dL. http://Carbon Analyticsurl.com/KKC-IHP-Vwvikovlc Adults aged 40-75 with LDL 70-189 mg/dL should have their 10 year ASCVD risk estimated with the ACC/AHA ASCVD risk commercial roofing estimator http://tools.acc.org/THBLD-Qoel-Nfrqpufii/ Statin should be discussed if risk greater [...] critical component of ASCVD risk reduction. Blood 05/01/2023 3:24 PM EST 05/01/2023 3:33 PM EST Narrative Resulting Agency Comment Spec In Lab Samantha Whalen MD CHEMISTRY ORDERABLE S Performing Organization Address City/[facility] Co de Phone Number [facility] [place] [address] * GC/Chlamydia Urine (05/01/2023 3:15 PM EST) GC Gene Amp Negative Negative [facility] Comment: Eye specimens are not an FDA-cleared source for this testing. The performance of this assay with eye specimens has been validated in-house. GC Source Urine [facility] Chlamydia Gene Amp Negative Negative [facility] Comment: Eye specimens are not an FDA-cleared source for this testing. The performance of this assay with eye specimens has been validated in-house. Chlm Source Urine [facility] Urine 05/01/2023 3:15 PM EST 05/01/2023 5:04 PM EST Narrative Resulting Agency Comment Spec In Lab Samantha Whalen MD MICROBIOLOGY - GENE RAL ORDERABLES Performing Organization Address [facility] Co de Phone Number [facility] [place] [address] documented in this encounter Visit Diagnoses Diagnosis family history of cardiac disease Heart disease, unspecified Unprotected sex Problems related to high-risk sexual behavior Anxiety Anxiety state, unspecified Depression, unspecified depression type documented in this encounter Care Teams Community Living Specialist Relationship Specialty Start Date End Date Edilma Cornejo MD [facility] [place] [address] PCP - General 12/05/22 documented as of this encounter
--- OUTSIDE RECORDS SUMMARY | 2024-07-29 00:24 | XMS_ITS | Encounter Summary ---
Author Organization [facility] Address [facility] [place] [address] Care Team Providers Care Fine Arts Packer Name Role Phone Alfreda Molina MD Primary Care Provider Vicky vailable Encounter Details Date Type Department Care Team (Latest Contact Info) Description 10/07/2022 Travel Social History Tobacco Use Types Packs/Day [...] Description 08/08/2024 9:00 AM EST Appointment [address] [phone] Umu Saucedo RN 08/15/2024 10:45 AM EST TH Visit (TeleHealth) Obstetrics [place] [phone] Dara Kelley MD [facility] DR OBSTETRICS [place] [address] 11/25/2024 Hospital Encounter [place] [phone] Dara Gonzalez MD [facility] OBSTETRICS [place] [address] 07/12/2025 1:40 PM EST Office Visit Ophthalmology at [place] [phone] Bina Agrawal OD [facility] [place] [address] documented as of this encounter Visit Diagnoses Not on filedocumented in this encounter Care Teams Fine Arts Packer Relationship Specialty Start Date End Date Alfreda Molina MD PCP - General Pediatrics 11/30/20 12/04/22 documented as of this encounter
--- OUTSIDE RECORDS SUMMARY | 2024-07-29 00:24 | XMS_ITS | Encounter Summary ---
Author Organization [facility] Address [facility] [place] [address] Care Team Providers Care Drop Man Name Role Phone Edilma Cornejo MD Primary Care Provider [phone] Encounter Details Date Type Department Care Team (Latest Contact Info) Description 05/27/2023 Travel Social History Tobacco Use Types Packs/Day [...] EST Appointment [facility] [address] [phone] Umu Saucedo RN 08/15/2024 10:45 AM EST TH Visit (TeleHealth) Obstetrics [place] [phone] Dara Kelley MD [facility] OBSTETRICS [place] [address] 11/25/2024 Hospital Encounter Birthing [place] [phone] Dara Gonzalez MD [facility] OBSTETRICS [place] [address] 07/12/2025 1:40 PM EST Office Visit Ophthalmology at [place] [phone] Bina Agrawal, JONELLE [facility] [place] [address] documented as of this encounter Visit Diagnoses Not on filedocumented in this encounter Care Teams Drop Man Relationship Specialty Start Date End Date Edilma Cornejo MD [facility] [place] [address] PCP - General 12/05/22 documented as of this encounter
--- OUTSIDE RECORDS SUMMARY | 2024-07-29 00:24 | XMS_ITS | Encounter Summary ---
Author Organization [facility] Address [facility] [place] [address] Care Team Providers Care Unleavened Dough Mixer Name Role Phone Edilma Cornejo MD Primary Care Provider [phone] Encounter Details Date Type Department Care Team (Latest Contact Info) Description 12/20/2022 Travel Social History Tobacco Use Types Packs/Day [...] Info) Description 08/08/2024 9:00 AM EST Appointment [facility] [address] [phone] Umu Saucedo RN 08/15/2024 10:45 AM EST TH Visit (TeleHealth) Obstetrics [place] [address] Dara Kelley MD [facility] DR OBSTETRICS [place] [address] 11/25/2024 Hospital [place] [phone] Dara Gonzalez MD [facility] OBSTETRICS [place] [address] 07/12/2025 1:40 PM EST Office Visit [place] [phone] Bina Agrawal, JONELLE [facility] [address] documented as of this encounter Visit Diagnoses Not on filedocumented in this encounter Care Teams Unleavened Dough Mixer Relationship Specialty Start Date End Date Edilma Cornejo MD [facility] [place] [address] PCP - General 12/05/22 documented as of this encounter
--- OUTSIDE RECORDS SUMMARY | 2024-07-29 00:24 | XMS_ITS | Encounter Summary ---
Author Organization [facility] Address [facility] [place] [address] Care Team Providers Care Ship Wirer Name Role Phone Edilma Cornejo MD Primary Care Provider Encounter Details Date Type Department Care Team (Latest Contact Info) Description 02/03/2023 Travel Social History Tobacco Use Types Packs/Day [...] Info) Description 08/08/2024 9:00 AM EST Appointment COUNT [facility]CLUD[facility] [address] [phone] Umu Saucedo RN 08/15/2024 10:45 AM EST TH Visit (TeleHealth) Obstetrics [place] [address] Dara Kelley MD [facility] DR OBSTETRICS [place] [address] 11/25/2024 Hospital [place] [phone] Dara Gonzalez MD [facility] OBSTETRICS [place] [address] 07/12/2025 1:40 PM EST Office Visit [place] [phone] Bina Agrawal, JONELLE [facility] [address] documented as of this encounter Visit Diagnoses Not on filedocumented in this encounter Care Teams Ship Wirer Relationship Specialty Start Date End Date Edilma Cornejo MD [facility] [place] [address] PCP - General 12/05/22 documented as of this encounter
--- OUTSIDE RECORDS SUMMARY | 2024-07-29 00:24 | XMS_ITS | Encounter Summary ---
Author Organization [facility] Address [facility] [place] [address] Care Team Providers Care Information Strategist Name Role Phone Edilma Cornejo MD Primary Care Provider [phone] Encounter Details Date Type Department Care Team (Latest Contact Info) Description 05/01/2023 Travel Social History Tobacco Use Types Packs/Day [...] Info) Description 08/08/2024 9:00 AM EST Appointment [facility] [address] [phone] Umu Saucedo RN 08/15/2024 10:45 AM EST TH Visit (TeleHealth) Obstetrics [place] [phone] Dara Kelley MD [facility] OBSTETRICS [place] [address] 11/25/2024 Hospital Encounter Birthing [place] [phone] Dara Gonzalez MD [facility] OBSTETRICS [place] [address] 07/12/2025 1:40 PM EST Office Visit Ophthalmology at [place] [phone] Bina Agrawal, JONELLE [facility] [place] [address] documented as of this encounter Visit Diagnoses Not on filedocumented in this encounter Care Teams Information Strategist Relationship Specialty Start Date End Date Edilma Cornejo MD [facility] [place] [address] PCP - General 12/05/22 documented as of this encounter
--- OUTSIDE RECORDS SUMMARY | 2024-07-29 00:24 | XMS_ITS | Encounter Summary ---
Author Organization [facility] [place] [address] Care Team Providers Care Canvas Repairer Name Role Phone Alfreda Molina MD Primary Care Provider Vicky vailable Encounter Details Date Type Department Care Team (Latest Contact Info) Description 06/23/2022 9:15 AM EST Laboratory Appointment Lab [address] [place] [phone] Vulvar lesion Social History Tobacco Use Types Packs/Day Years Used Date Smoking Tobacco: Passive Smo ke Exposure - Never Smoker Smokeless Tobacco: Never Comments:Dad smokes outside Alcohol Use Standard Drinks/Week Comments No 0 [...] Description 08/08/2024 9:00 AM EST Appointment [address] [phone] Umu Saucedo RN 08/15/2024 10:45 AM EST TH Visit (TeleHealth) Obstetrics [place] [address] Dara Kelley MD [facility] OBSTETRICS [place] [address] 11/25/2024 Hospital Encounter Birthing [place] [phone] Dara Gonzalez MD [facility] OBSTETRICS [place] [address] 07/12/2025 1:40 PM EST Office [place] [phone] Bina Agrawal OD [facility] [place] [address] documented as of this encounter Procedures Procedure Name Priority Date/Time Associated Diagnosis Comments HC VENIPUNCTURE Routine 06/23/2022 9:31 AM EST Vulvar lesion documented in this encounter Results * HSV 1 and 2 IgG Antibodies (06/23/2022 9:31 AM EST) HSV Type 1 Ab, IgG Negative Negative [facility] HSV Type 2 Ab, IgG Negative Negative [facility] Blood 06/23/2022 9:31 AM EST 06/23/2022 10:56 AM EST Narrative Resulting Agency Comment Spec In Lab Earle Cade MD IMMUNOLOGY ORDERABL ES [facility] [place] [address] documented in this encounter Visit Diagnoses Diagnosis Vulvar lesion Other specified noninflammatory disorder of vulva and perineum documented in this encounter Care Teams Canvas Repairer Relationship Specialty Start Date End Date Alfreda Molina MD PCP - General Pediatrics 11/30/20 12/04/22 documented as of this encounter
--- OUTSIDE RECORDS SUMMARY | 2024-07-29 00:24 | XMS_ITS | Encounter Summary ---
Author Organization [facility] Address [facility] [place] [address] Care Team Providers Care Media Relations Director Name Role Phone Edilma Cornejo MD Primary Care Provider [phone] Encounter Details Date Type Department Care Team (Late st Contact Info) Description 11/24/2022 Telephone [facility] at [address] [place] [phone] Edilma Patel, PA [address] OBSTETRICS [place] [address] Social History Tobacco Use Types Packs/Day Years [...] encounter Miscellaneous Notes * Telephone Encounter - Raina Flores RN - 12/10/2022 1:21 PM EDT RN received message that she is still waiting for results of her urine culture. RN called her but no answer, VM left to call back and speak with triage nurse. * Telephone Encounter - Andressa Dong LPN - 11/24/2022 11:59 AM EDT I have spoken with pt an she states that she has just felt like her urination isoff . Last week took home test for UTI which she states was positive.. Pt. Denies fevers, chills, urgency, painful urination, blood in urine, flank pain, frequency. Pt. Does not fit UTI triage protocol but would like to do urine culture to rule out uti. She will stop and leave urine at the lab.She will call if she develops symptoms prior to her urine results. Pt. Happy with plan to wait and see then treat if urinepositive. * Telephone Encounter - Adriana Zimmer - 11/24/2022 11:46 AM EDT She thinks she has a UTI. documented in this encounter Plan of Treatment Upcoming Encounters Date Type Department Care Team (Late st Contact Info) Description 08/08/2024 9:00 AM EST Appointment [address] [phone] Umu Saucedo RN 08/15/2024 10:45 AM EST TH Visit (TeleHealth) Obstetrics [place] [phone] Dara Kelley MD [facility] OBSTETRICS [place] [address] 11/25/2024 Hospital [place] [phone] Dara Gonzalez MD [facility] DR OBSTETRICS [place] [address] 07/12/2025 1:40 PM EST Office Visit Ophthalmology at [place] [phone] Bina Agrawal OD [facility] [place] [address] documented as of this encounter Results * (ABNORMAL) Urine culture Clean Catch Urine (11/24/2022 2:31 PM EDT) Urine Culture 10,000-49,000 cfu/ml mixed mucosal eligio including Beta Hemolytic Streptococci, Group B Note: Culture shows multiple bacterial species suggesting mucosal contamination. (A) [facility] Organism Beta Hemolytic Streptococci, Group B(A) [facility] Clean Catch Urine 11/24/2022 2:31 PM EDT 11/24/2022 6:39 PM EDT Narrative Resulting Agency Comment Spec In Lab Earle Cade MD MICROBIOLOGY - [facility] ORDERABLES [facility] [place] [address] * (ABNORMAL) Urinalysis without microscopic (11/24/2022 2:31 PM EDT) Glucose, Urine Dipstick Negative Negative mg/dL [facility] Protein, Urine Dipstick Negative Negative mg/dL [facility] Bilirubin, Urine Dipstick Negative Negative mg/dL [facility] Comment: Clinical correlation required for positive Urine Bilirubin results as false positive may occur with some drugs and drug related products. If a false positive is suspected a serum total bilirubin should be considered if clinically indicated. Urobilinogen, Urine Dipstick Normal Normal mg/dL [facility] pH, Urn (dipstick) 6.5 5.0 - 8.0 [facility] Blood, Urine Dipstick Negative Negative mg/dL [facility] Ketone, Urine Dipstick Negative Negative mg/dL [facility] Nitrite, Urine Dipstick Negative Negative [facility] Leukocytes, Urine Dipstick Small(A) Negative [facility] Appearance, Urine Dipstick Cloudy(A) Clear [facility] Specific [place] Urine Automated 1.020 1.006 - 1.030 [facility] Color, Urine Dipstick Yellow [facility] Urine 11/24/2022 2:31 PM EDT 11/24/2022 2:31 PM EDT Narrative Resulting Agency Comment Spec In Lab Earle Cade MD URINE ORDERABLES [facility] [address] [place] [address] documented in this encounter Visit Diagnoses Diagnosis Urinary tract infection without hematuria, site unspecified documented in this encounter Care Teams Media Relations Director Relationship Specialty Start Date End Date Edilma Cornejo MD [facility] [place] [address] PCP - General 12/05/22 documented as of this encounter
--- OUTSIDE RECORDS SUMMARY | 2024-07-29 00:24 | XMS_ITS | Encounter Summary ---
Author Organization [facility] Address [facility] [place] [address] Care Team Providers Care Director Of Anesthesia Services Name Role Phone Edilma Cornejo MD Primary Care Provider [phone] Encounter Details Date Type Department Care Team (Late st Contact Info) Description 02/04/2023 [place] [phone] Bina Agrawal OD [facility] [place] [address] Social History Tobacco Use Types Packs/Day Years [...] encounter Miscellaneous Notes * Telephone Encounter - Jonn Dinh - 02/17/2023 2:17 PM EDT Pt scheduled * Telephone Encounter - Jonn Dinh - 02/04/2023 3:13 PM EDT Left 1st message for pt to call back to vashti gtz appointment with Dr. Nghia Gtz x 1 on 03/23 Please schedule to any CL/ IOP spot in Dec as long as there are two on the days or the 1st week in Jun 2023 or next Avail. Return in about 1 year (around 03/20/2023) for CEE. documented in this encounter Plan of Treatment Upcoming Encounters Date Type Department Care Team (Late st Contact Info) Description 08/08/2024 9:00 AM EST Appointment [address] [phone] Umu Saucedo RN 08/15/2024 10:45 AM EST TH Visit (TeleHealth) Obstetrics and Gynecology at [place] [phone] Dara Kelley MD [facility] [place] [address] 11/25/2024 Hospital Encounter Birthing [place] [phone] Dara Gonzalez MD [facility] [place] [address] 07/12/2025 1:40 PM EST Office Visit Ophthalmology at [place] [phone] Bina Agrawal OD [facility] [place] [address] documented as of this encounter Visit Diagnoses Not on filedocumented in this encounter Care Teams Director Of Anesthesia Services Relationship Specialty Start Date End Date Edilma Cornejo MD [facility] [place] [address] PCP - General 12/05/22 documented as of this encounter
--- OUTSIDE RECORDS SUMMARY | 2024-07-29 00:24 | XMS_ITS | Encounter Summary ---
Author Organization [facility] [place] [address] Care Team Providers Care String Top Sealer Name Role Phone Alfreda Molina MD Primary Care Provider Vicky vailable Encounter Details Date Type Department Care Team (Latest Contact Info) Description 11/24/2022 2:10 PM EDT Laboratory Appointment Laboratory at [facility] [place] [address] Nipple discharge in female; Urinary tract infection without hematuria, site unspecified Social History Tobacco Use Types Packs/Day Years [...] Description 08/08/2024 9:00 AM EST Appointment [address] [phone] Umu Saucedo RN 08/15/2024 10:45 AM EST TH Visit (TeleHealth) Obstetrics [place] [address] Dara Kelley MD [facility] OBSTETRICS [place] [address] 11/25/2024 Hospital Encounter Birthing [place] [phone] Dara Gonzalez MD [facility] OBSTETRICS [place] [address] 07/12/2025 1:40 PM EST Office Visit Ophthalmology at [place] [phone] Bina Agrawal OD [facility] [place] [address] documented as of this encounter Procedures Procedure Name Priority Date/Time Associated Diagnosis Comments URINALYSIS DIPSTICK Routine 11/24/2022 2 :31 PM EDT Urinary tract infection without hematuria, site unspecified URINE CULTURE Routine 11/24/2022 2:31 PM EDT Urinary tract infection without hematuria, site unspecified TSH CASCADE Routine 11/24/2022 2:13 PM EDT Nipple discharge in female PROLACTIN Routine 11/24/2022 2:13 PM EDT Nipple discharge in female documented in this encounter Results * (ABNORMAL) Urinalysis without microscopic (11/24/2022 2:31 PM EDT) Glucose, Urine Dipstick Negative Negative mg/dL [facility] Protein, Urine Dipstick Negative Negative mg/dL [facility] Bilirubin, Urine Dipstick Negative Negative mg/dL [facility] Comment: Clinical correlation required for positive Urine Bilirubin results as false positive may occur with some drugs and drug related products. If a false positive is suspected a serum total bilirubin should be considered if clinically indicated. Urobilinogen, Urine Dipstick Normal Normal mg/dL [facility] pH, Urn (dipstick) 6.5 5.0 - 8.0 [facility] Blood, Urine Dipstick Negative Negative mg/dL [facility] Ketone, Urine Dipstick Negative Negative mg/dL [facility] Nitrite, Urine Dipstick Negative Negative [facility] Leukocytes, Urine Dipstick Small(A) Negative [facility] Appearance, Urine Dipstick Cloudy(A) Clear [facility] Specific [place] Urine Automated 1.020 1.006 - 1.030 [facility] Color, Urine Dipstick Yellow [facility] Urine 11/24/2022 2:31 PM EDT 11/24/2022 2:31 PM EDT Narrative Resulting Agency Comment Spec In Lab Earle Cade MD URINE ORDERABLES Performing Organization Address City/[facility]/ZIP Co de Phone Number [facility] [address] [place] [address] * (ABNORMAL) Urine culture Clean Catch Urine (11/24/2022 2:31 PM EDT) Urine Culture 10,000-49,000 cfu/ml mixed mucosal eligio including Beta Hemolytic Streptococci, Group B Note: Culture shows multiple bacterial species suggesting mucosal contamination. (A) [facility] Organism Beta Hemolytic Streptococci, Group B(A) [facility] Clean Catch Urine 11/24/2022 2:31 PM EDT 11/24/2022 6:39 PM EDT Narrative Resulting Agency Comment Spec In Lab Earle Cade MD MICROBIOLOGY - GENE RAL ORDERABLES Performing Organization Address City/[facility]/ZIP Co de Phone Number [facility] [place] [address] * Prolactin (11/24/2022 2:13 PM EDT) Prolactin 23.0 4.8 - 23.3 ng/mL [facility] Blood 11/24/2022 2:13 PM EDT 11/24/2022 6:26 PM EDT Narrative Resulting Agency Comment Spec In Lab Earle Cade MD CHEMISTRY ORDERABLE S [facility] [place] [address] * TSH [place] (11/24/2022 2:13 PM EDT) Thyroid Stimulating Hormone 3.24 0.27 - 4.20 mcIU/mL [facility] Comment: Reference Interval (mcIU/mL): Females: ??First Trimester: 0.23-3.88 ??Second Trimester: 0.22-3.90 ??Third Trimester: 0.44-4.66 Blood 11/24/2022 2:13 PM EDT 11/24/2022 2:33 PM EDT Narrative Resulting Agency Comment Spec In Lab Earle Cade MD CHEMISTRY ORDERABLE S Performing Organization Address City/[facility]/ZIP Co de Phone Number [facility] [address] [place] [address] documented in this encounter Visit Diagnoses Diagnosis Nipple discharge in female Other sign and symptom in breast Urinary tract infection without hematuria, site unspecified documented in this encounter Care Teams String Top Sealer Relationship Specialty Start Date End Date Alfreda Molina MD PCP - General Pediatrics 11/30/20 12/04/22 documented as of this encounter
--- OUTSIDE RECORDS SUMMARY | 2024-07-29 00:24 | XMS_ITS | Encounter Summary ---
Author [facility] Address [facility] [place] [address] Care Team Providers Care Electronic Technologist Name Role Phone Alfreda Molina MD Primary Care Provider Vicky vailable Reason for Visit * Reason Comments Contraception Encounter Details Date Type Department Care Team (Latest Contact Info) Description 09/16/2022 1:30 PM EDT Office Visit [facility] [address] [place] [phone] Edilma Patel, PA [address] [facility] OBSTETRICS [place] [address] Encounter for BCP ( control pills) initial prescription; Encounter for general counseling and advice on contraceptive management Social History Tobacco Use Types Packs/Day [...] Sign Reading Time Taken Comments Blood Pressure 102/60 09/16/2022 1:18 PM EDT Pulse 60 09/16/2022 1:18 PM EDT Temperature 37 ??C (98.6 ??F) 09/16/2022 1:18 PM EDT Respiratory Rate 14 09/16/2022 1:18 PM EDT Oxygen Saturation 98% 09/16/2022 1:18 PM EDT Inhaled Oxygen Concentration - - Weight 59 kg (130 lb) 09/16/2022 1:18 PM EDT Height 149.9 cm (4' 11) 09/16/2022 1:18 PM EDT Body Mass Index 26.26 09/16/2022 1:18 PM EDT Body Mass Index Percentile 86.11% 09/16/2022 1:1 8 PM EDT Growth Chart: [facility] (Girls, 2- 20 Years) documented in this encounter Progress Notes * Cande Lindo CMA - 09/16/2022 1:30 PM EDT Chief Complaint Patient presents with ??? Contraception S: Patient is a 17 y.o. female here to discuss control options. She is currently using Depo-Provera for contraception. She is not satisfied with her current method - does not like not having her periods. She does not have a current partner. She and her former boyfriend broke up in May and then he by suicide last month. Also had grandmother pass away last week. Contraceptive history: OCPs, Nexplanon, Nuva Ring, patch She is not desiring right now. Would maybe want to be in the next few years. Is considering using fertility awareness method, condoms Not a smoker, no history of migraines, hypertension, blood clots. OB History 0 Para 0 Term 0 0 AB 0 Living 0 SAB 0 IAB 0 Ectopic 0 Multiple 0 Live Births 0 Past Medical History: Diagnosis Date ??? Acne [...] 09/15/2007 ??? TYMPANOMASTOIDECTOMY ??? TYMPANOSTOMY TUBE PLACEMENT Current Outpatient Medications on File Prior to Visit Medication Sig Dispense Refill ??? amoxicillin (Amoxil) 500 mg capsule ??? Sodium Fluoride (DentaGel) 1.1 % Gel ??? ibuprofen (Advil) 600 mg tablet ??? albuteroL 90 mcg/actuation HFA Aerosol Inhaler Inhale 2 puffs into the lungs every 4 hours as needed for Wheezing. Use with spacer 1 each 5 ??? [facility] Spacer ??? calcium carbonate (TUMS) 200 mg calcium (500 mg) Tablet, Chewable Take 1 tablet by mouth as needed. ??? HYDROcodone-acetaminophen ([place]) 5-325 mg tablet ??? sertraline (Zoloft) 25 mg Tablet Take 25 mg by mouth daily. ??? lidocaine (Lidoderm) 5% Adhesive Patch, Medicated Change 3 patches on the skin every 12 hours. Apply patch to painful area, keep on for 12 hours, then remove for 12 hours before placing the next patch (Patient not taking: Reported on 09/16/2022) 15 patch 0 Current Facility-Administered Medications on File Prior to Visit Medication Dose Route Frequency Provider Last Rate Last Admin ??? medroxyPROGESTERone (Depo-PROVERA) injection 150 mg 150 mg Intramuscular Q 3 Months Earle Cade MD Allergies Allergen Reactions ??? Band-Aid [Adhesive Bandage] Rash Fabric band-aids O: BP 102/60 Pulse 60 Temp 37 ??C (98.6 ??F) Resp 14 Ht (!) 149.9 cm (4' 11) Wt 59 kg (130 lb) SpO2 98% BMI 26.26 kg/m?? Physical Exam Constitutional: General: She is not in acute distress. Appearance: Normal appearance. She is normal weight. HENT: Head: Normocephalic and atraumatic. Cardiovascular: Rate and Rhythm: Normal rate. Pulmonary: Effort: Pulmonary effort is normal. Neurological: Mental Status: She is alert. Psychiatric: Mood and Affect: Mood normal. Behavior: Behavior normal. Assessment and Plan: Ely was seen today for contraception. Diagnoses and all orders for this visit: Encounter for BCP ( control pills) initial prescription - norethindrone-ethinyl estradiol (Microgestin 1.5/30) 1.5-30 mg-mcg tablet; Take 1 tablet by mouthdaily. Encounter for general counseling and advice on contraceptive management We reviewed options for control, including oral contraceptive pills, patch, NuvaRing, condoms, long acting reversible contraceptive methods including hormonal and nonhormonal IUDs and Nexplanon. Also reviewed that fertility awareness method is approximately 75% effective, so would not recommend this method if she does not desire , especially as she has had a lot of emotional stressors recently. After review of alternatives, she would like to switch to a control pill - she feels she did well with this in the past, took consistently and tolerated well. Prescription sent today. She will start taking the pill a week before her next Depo-Provera injection would be due, or inabout 2 weeks. FOLLOWUP: Return in about 1 year (around 09/17/2023) for control renewal, or sooner with any problems. ABIGAIL Correa 09/16/2022 documented in this encounter Plan of Treatment Upcoming Encounters Date Type Department Care Team (Late st Contact Info) Description 08/08/2024 9:00 AM EST Appointment [address] [phone] Umu Saucedo RN 08/15/2024 10:45 AM EST Visit (TeleHealth) Obstetrics [place] [phone] Dara Kelley MD [facility] OBSTETRICS [place] [address] 11/25/2024 Hospital [place] [phone] Dara Gonzalez MD [facility] OBSTETRICS [place] [address] 07/12/2025 1:40 PM EST Office Visit [place] [address] Bina Agrawal, [facility]ON[facility] [place] [address] documented as of this encounter Visit Diagnoses Diagnosis Encounter for BCP ( control pills) initial prescription General counseling for prescription of oral contraceptives Encounter for general counseling and advice on contraceptive management documented in this encounter Care Teams Electronic Technologist Relationship Specialty Start Date End Date Alfreda Molina MD PCP - General Pediatrics 11/30/20 12/04/22 documented as of this encounter
--- OUTSIDE RECORDS SUMMARY | 2024-07-29 00:24 | XMS_ITS | Encounter Summary ---
Author Organization [facility] Address [facility] [place] [address] Care Team Providers Care Scale Shooter Name Role Phone Edilma Cornejo MD Primary Care Provider [phone] Encounter Details Date Type Department Care Team (Late st Contact Info) Description 05/18/2023 Patient Outreach Pediatrics at [address] [phone] Maureen Clifton, [facility] [place] [address] Social History Tobacco Use Types Packs/Day Years Used Date Smoking Tobacco: Never Passive Smoke Exposure: Yes Smokeless Tobacco: Never Comments:Patient vapes on oc casion (rechargeable cartridge) Alcohol Use Standard Drinks/Week Comments No 0 (1 standard drink = 0.6 oz pur e alcohol) [facility] Inpatient Questions Answer Date Recorded Does Anyone [...] Info) Description 08/08/2024 9:00 AM EST Appointment [address] [phone] Umu Saucedo RN 08/15/2024 10:45 AM EST TH Visit (TeleHealth) Obstetrics and Gynecology at [place] [phone] Dara Kelley MD [facility] OBSTETRICS [place] [address] 11/25/2024 Hospital Encounter Birthing [address] Dara Gonzalez MD [facility] OBSTETRICS [place] [address] 07/12/2025 1:40 PM EST Office Visit Ophthalmology at [address] Bina Agrawal OD [facility] [place] [address] documented as of this encounter Visit Diagnoses Diagnosis Depression, unspecified depression type documented in this encounter Care Teams Scale Shooter Relationship Specialty Start Date End Date Edilma Cornejo MD [facility] [place] [address] PCP - General 12/05/22 documented as of this encounter
--- OUTSIDE RECORDS SUMMARY | 2024-07-29 00:24 | XMS_ITS | Encounter Summary ---
Author Organization [facility] Address [facility] [place] [address] Care Team Providers Care Clinical Laboratory Science Professor Name Role Phone Alfreda Molina MD Primary Care Provider Vicky vailable Reason for Visit * Reason Comments Contraception Depo Encounter Details Date Type Department Care Team (Latest Contact Info) Description 07/08/2022 8:30 AM EST Clinical Support [facility] [address] [place] [address] Encounter for female control Social History Tobacco Use Types Packs/Day Years [...] as of this encounter Progress Notes * Cande Lindo CMA - 07/08/2022 8:30 AM EST Date last pap: No Hx. Last Depo-Provera: 04/08/22. Side Effects if any: None. Serum HCG indicated? . Depo-Provera 150 mg IM given by: Cande Easley. Next appointment due September - October 07, 2022 documented in this encounter Plan of Treatment Upcoming Encounters Date Type Department Care Team (Late st Contact Info) Description 08/08/2024 9:00 AM EST Appointment [address] [phone] Umu Saucedo RN 08/15/2024 10:45 AM EST TH Visit (TeleHealth) Obstetrics [place] [phone] Dara Kelley MD [facility] OBSTETRICS [place] [address] 11/25/2024 Hospital [place] [phone] Dara Gonzalez MD [facility] OBSTETRICS [place] [address] 07/12/2025 1:40 PM EST Office [place] [phone] Bina Agrawal OD [facility] [address] documented as of this encounter Visit Diagnoses Diagnosis Encounter for female control Other specified contraceptive management documented in this encounter Administered Medications Inactive Administered Medications - up to 3 most recent administrations Medication Order MAR Action Action Date Dose Rate Site medroxyPROGESTERone (Depo-PROVERA) injection 150 mg 150 mg, Intramuscular, ONCE, 1 dose, On Jania 07/10/22 at 0930, Inject into the muscle. Every 12 weeks in office., Routine, Is this medication being ordered for contraception? This question is required for billing. Yes Given 07/08/2022 3:49 PM EST 150 mg L eft Deltoid documented in this encounter Care Teams Clinical Laboratory Science Professor Relationship Specialty Start Date End Date Alfreda Molina MD PCP - General Pediatrics 11/30/20 12/04/22 documented as of this encounter
--- OUTSIDE RECORDS SUMMARY | 2024-07-29 00:24 | XMS_ITS | Encounter Summary ---
Author Organization [facility]ly [facility] Address [facility] [place] [address] Care Team Providers Care Retail Helper Name Role Phone Edilma Cornejo MD Primary Care Provider [phone] Reason for Visit * Reason Comments Follow-up Encounter Details Date Type Department Care Team (Late st Contact Info) Description 02/03/2023 3:30 PM EDT Office Visit Pediatrics at [address] [phone] Tangela Rodrigues MD [facility] [place] [address] Dysuria; Depression, unspecified depression type; Unprotected sex; Anxiety Social History Tobacco Use Types Packs/Day [...] Sign Reading Time Taken Comments Blood Pressure 122/72 02/03/2023 3:30 PM EDT Pulse - - Temperature - - Respiratory Rate - - Oxygen Saturation - - Inhaled Oxygen Concentration - - Weight 59 kg (130 lb) 02/03/2023 3:30 PM EDT Height 151.1 cm (4' 11.5) 02/03/2023 3:30 PM ED T Body Mass Index 25.82 02/03/2023 3:30 PM EDT documented in this encounter Progress Notes * Tangela Rodrigues MD - 02/03/2023 3:30 PM EDT Assessment: Ely is a 18 yo who presents for mental health follow up. Doing well as she reports her depression has improved and she is able to manage her anxiety; not currently seeing a counselor and not taking any medications. PHQ-2 was a 2 and PAVITHRA-7 score was a 7 today. Additionally she reports a new sexual partnership; not using protection and now off control. Patient is requesting sti/ testing. Has had spotting recently which may be related to recently stopping of her control; would recommend continued monitoring of her spotting and return to care for increased bleeding in frequency or amount. Also some dysuria last week - will perform UA a t patient's request though expect ua to be negative given improvement of symptoms and no fevers. Plan: - continue monitoring anxiety/depression - consider therapy if symptoms change - urine testing today - urine gc/chalymdia testing today - poct urine dipstick - return to care (our office or OBGYN) for changes in spotting/worsening bleeding Return to Clinic for: follow up in few months, prn worsening Chief Complaint: Chief Complaint Patient presents with Follow-up History of Present Illness: Ely presents for mental health follow up - regarding her anxiety, is constant though has been about the same over the past few months - has anxiety all the time other than when playing video games (not anxious as she is focused on the game) - manages her anxiety by just keeping her mind off of it - feel okay with her anxiety - depression is better - not taking any medication at this time, has not taken the sertraline - she states she has not taken it starting basically when it was prescribed - no counselor or therapist currently, has worked with someone in the past that have given her the skills to help - no si/hi - enjoys activities like reading, sewing, swimming in summer, video games - feels she is doing good and okay - this summer moved in with her new boyfriend - graduated high school - not working currently 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); 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 job - is sexually active with new partner - asking for testing today - is not using protection - not on control (off of it in August) - does report recent bleeding/spotting (has calendar of the dates), states she could use one pad throughout the whole day - feels safe in her relationship - does report burning with urination last week, none today and no blood in urine - urinary frequency last week - improved this week - no fevers - requesting testing for uti Review of Systems: see HPI PMH: Patient Active Problem List Diagnosis Code [...] Z30.019 Acne vulgaris L70.0 Subclinical hypothyroidism E03.8 Vital Signs: BP 122/72 Ht 151.1 cm (4' 11.5) Wt 59 kg (130 lb) BMI 25.82 kg/m?? PHYSICAL EXAM: General: well appearing, in NAD, cooperative HEENT: NC/AT, mmm, no nasal secretions, eyes without conjunctival injection CV: rrr Resp: good air entry, CTAB, no increased WOB, no wheezing, crackles Abd: active bowel sounds, soft, mild right lower quadrant tenderness MS: MAEW, grossly normal strength Neuro: alert, CN II-XII grossly intact Skin: no rashes on exposed skin Tangela Rodrigues MD PGY-2 02/03/2023 * Jorge Moser MD - 02/03/2023 3:30 PM EDT The case was discussed in person at the time of the visit or immediately after the visit. The assessment and plan were formulated in discussion with me and I agree with them as documented. I have reviewed the history, physical exam, assessment and plan with the resident. Major issues discussed today: Happy with current control of anxiety but does have symptoms. - no current therapy. No active safety concerns - did not previously take sertraline and is not interested in pharmacotherapy today. Spotting, No longer taking OCP. Plan: - UA, GC/C, bHcg - RTC for worsening spotting - anxiety treatments available if desired. documented in this encounter Plan of Treatment Upcoming Encounters Date Type Department Care Team (Late st Contact Info) Description 08/08/2024 9:00 AM EST Appointment [address] [phone] Umu Saucedo, RN 08/15/2024 10:45 AM EST TH Visit (TeleHealth) Obstetrics [place] [phone] Dara Kelley MD [facility] OBSTETRICS [place] [address] 11/25/2024 Hospital [place] [phone] Dara Gonzalze MD [facility] OBSTETRICS [place] [address] 07/12/2025 1:40 PM EST Office [place] [phone] Bina Agrawal OD [facility] [place] [address] documented as of this encounter Procedures Procedure Name Priority Date/Time Associated Diagnosis Comments GC/CHLAMYDIA Routine 02/03/2023 5:03 PM EDT POCT URINE Routine 02/03/2023 3:59 PM EDT Dysuria POCT URINE DIPSTICK Routine 02/03/2023 3 :59 PM EDT Dysuria documented in this encounter Results * GC/Chlamydia (02/03/2023 5:03 PM EDT) Pathologist [facility] GC Gene Amp Negative Negative [facility] Comment: Eye specimens are not an FDA-cleared source for this testing. The performance of this assay with eye specimens has been validated in-house. GC Source Urine [facility] Chlamydia Gene Amp Negative Negative [facility] Comment: Eye specimens are not an FDA-cleared source for this testing. The performance of this assay with eye specimens has been validated in-house. Chlm Source Urine [facility] Urine Micro Spec / Unknown 02/03/2023 5:03 PM EDT 02/03/2023 5:03 PM EDT Narrative Resulting Agency Comment Spec In Lab Tangela Rodrigues MD MICROBIOLOGY - GENE [facility] ORDERABLES [facility] [place] [address] * POCT urine (02/03/2023 3:59 PM EDT) Pathologist [facility] POC Urine HCG Negative POC Control Internal Controls Acceptable 02/03/2023 3:59 PM EDT Jorge Moser MD POINT OF CARE VIRGIL T ORDERABLES * POCT urine dipstick (02/03/2023 3:59 PM EDT) POC Sp Hurley 1.030 1.002 - 1.030 POC pH, UA 5.0 5.0 - 8.5 POC Leuk, UA Trace Negative - Negative POC Nitrite, UA Negative Negative - Negative POC Protein, UA Negative Negative - Negative mg/dL POC Glucose, UA Normal Normal - Normal mg/dL POC Ketone, UA Negative Negative - Negative POC Urobil, UA 0.2 0.2 - 1.0 mg/dL POC Bili, UA Negative Negative - Negative POC Blood, UA Negative Negative - Negative jones/uL 02/03/2023 3:59 PM EDT Jorge Moser MD POINT OF CARE VIRGIL T ORDERABLES documented in this encounter Visit Diagnoses Diagnosis Dysuria Depression, unspecified depression type Unprotected sex Problems related to high-risk sexual behavior Anxiety Anxiety state, unspecified documented in this encounter Care Teams Retail Helper Relationship Specialty Start Date End Date Edilma Cornejo MD [facility] [place] [address] PCP - General 12/05/22 documented as of this encounter
--- OUTSIDE RECORDS SUMMARY | 2024-07-29 00:24 | XMS_ITS | Encounter Summary ---
Author Organization [facility] Address [facility] [place] [address] Care Team Providers Care Roll Icer Name Role Phone Alfreda Molina MD Primary Care Provider Vicky vailable Encounter Details Date Type Department Care Team (Latest Contact Info) Description 06/23/2022 Travel Social History Tobacco Use Types Packs/Day [...] 08/08/2024 9:00 AM EST Appointment [facility] [address] [place] [phone] Umu Saucedo RN 08/15/2024 10:45 AM EST TH Visit (TeleHealth) Obstetrics [place] [phone] Dara Kelley MD [facility] DR OBSTETRICS [place] [address] 11/25/2024 Hospital [place] [phone] Dara Gonzalez MD [facility] OBSTETRICS [place] [address] 07/12/2025 1:40 PM EST Office [place] [phone] Bina Agrawal OD [facility] [place] [address] documented as of this encounter Visit Diagnoses Not on filedocumented in this encounter Care Teams Roll Icer Relationship Specialty Start Date End Date Alfreda Molina MD PCP - General Pediatrics 11/30/20 12/04/22 documented as of this encounter
--- OUTSIDE RECORDS SUMMARY | 2024-07-29 00:24 | XMS_ITS | Encounter Summary ---
Author Organization [facility] Address [facility] [place] [address] Care Team Providers Care Sleeve Presser Operator Name Role Phone Alfreda Molina MD Primary Care Provider Vicky vailable Encounter Details Date Type Department Care Team (Latest Contact Info) Description 09/16/2022 Travel Social History Tobacco Use Types Packs/Day [...] Info) Description 08/08/2024 9:00 AM EST Appointment [facility] [address] [place] [phone] Umu Saucedo RN 08/15/2024 10:45 AM EST TH Visit (TeleHealth) Obstetrics [place] [phone] Dara Kelley MD [facility] OBSTETRICS [place] [address] 11/25/2024 Hospital [place] [phone] Dara Gonzalez MD [facility] OBSTETRICS [place] [address] 07/12/2025 1:40 PM EST Office [place] [phone] Bina Agrawal OD [facility] [place] [address] documented as of this encounter Visit Diagnoses Not on filedocumented in this encounter Care Teams Sleeve Presser Operator Relationship Specialty Start Date End Date Alfreda Molina MD PCP - General Pediatrics 11/30/20 12/04/22 documented as of this encounter
--- OUTSIDE RECORDS SUMMARY | 2024-07-29 00:24 | XMS_ITS | Encounter Summary ---
Author Organization [facility] Address [facility] [address] Care Team Providers Care Senior Training And Development Rep Name Role Phone Edilma Cornejo MD Primary Care Provider [phone] Encounter Details Date Type Department Care Team (Late st Contact Info) Description 05/27/2023 1:00 PM EST Office Visit Pediatrics at [address] [phone] Maureen Clifton [facility] [place] [address] Generalized anxiety disorder Social History Tobacco Use [...] this encounter Progress Notes * Maureen Clifton [facility] - 05/27/2023 1:00 PM EST Images from the original note were not included. PEDIATRIC COLLABORATIVE CARE THERAPY PROGRESS NOTE Patient Name: Ely Mahmood Referral Date: 05/05/23 Intervention Session #: 1 Time Spent: 55 Attendees: Ely Mahmood Visit [...] presented to the session and was engaged. Affect was a bit flat. She notes that over the past week, she has had to send money to her father as requested from her grandmother. She describes distress related to these interactions and difficulty with boundaries. Discussed the CBT triangle and focused on how behavior is affected by thoughts and emotions. She identifies worry thoughtsrelated to her self worth and her duty in relationships. She struggles to identify what appropriateboundaries would be in a healthy relationship. Discussed healthy boundaries and how to set them. Discussed how shifting the thought can reduce guilt and change behavior. Discussed safety and she reports passive suicidal thoughts with no current intent or plan. Objective: Ely arrived to session adequately groomed and appropriately dressed for the weather. Ely was engaged. Discussed safety and she reported no intent or plan. Ely was oriented to person, place, and time and content of conversation reflected a clear and linear thought process. Last 4 PAVITHRA [...] Activities: Details/Summary: [x] Education about anxiety/avoidance CBT triangle and identifying worry thoughts. [] Develop a fear hierarchy [] Exposure practice [] Relaxation training [] Worry outcome journal [] Parent accommodation planning Revised goals or interventions: No Change Continued therapy has been deemed medically necessary at this time. Safety Risk Management: Was reviewed or assessed. Relevant updates or planning: None Assigned Homework: Practice skills learned in session Electronically signed by Maureen Clifton [facility] at 06/01/2023 9:21 AM EST documented in this encounter Plan of Treatment Upcoming Encounters Date Type Department Care Team (Late st Contact Info) Description 08/08/2024 9:00 AM EST Appointment [address] [phone] Umu Saucedo RN 08/15/2024 10:45 AM EST TH Visit (TeleHealth) Obstetrics and Gynecology at [place] [phone] Dara Kelley MD [facility] OBSTETRICS [place] [address] 11/25/2024 Hospital Encounter Birthing [place] [phone] Dara Gonzalez MD [facility] OBSTETRICS [place] [address] 07/12/2025 1:40 PM EST Office [place] [phone] Bina Agrawal OD [facility] [address] documented as of this encounter Visit Diagnoses Diagnosis Generalized anxiety disorder documented in this encounter Care Teams Senior Training And Development Rep Relationship Specialty Start Date End Date Edilma Cornejo MD [facility] [place] [phone] PCP - General 12/05/22 documented as of this encounter
--- OUTSIDE RECORDS SUMMARY | 2024-07-29 00:24 | XMS_ITS | Encounter Summary ---
Author Organization [facility] Address [facility] [place] [address] Care Team Providers Care Label Designer Name Role Phone Alfreda Molina MD Primary Care Provider Vicky vailable Encounter Details Date Type Department Care Team (Latest Contact Info) Description 10/28/2022 8:30 AM EDT Office Visit [facility] [address] [address] [place] [address] Edilma Patel, PA [address] OB[facility] [address] Amenorrhea, secondary; Routine screening for STI (sexually transmitted infection); Nipple discharge in female; Encounter for general counseling and advice on [...] Sign Reading Time Taken Comments Blood Pressure 122/80 10/28/2022 8:20 AM EDT Pulse 95 10/28/2022 8:20 AM EDT Temperature - - Respiratory Rate - - Oxygen Saturation 98% 10/28/2022 8:20 AM EDT Inhaled Oxygen Concentration - - Weight 62.3 kg (137 lb 6.4 oz) 10/28/2022 8:20 A M EDT Height 149.9 cm (4' 11) 10/28/2022 8:20 AM EDT Body Mass Index 27.75 10/28/2022 8:20 AM EDT Body Mass Index Percentile 90.25% 10/28/2022 8:2 0 AM EDT Growth Chart: [facility] (Girls, 2- 20 Years) documented in this encounter Progress Notes * Edilma Patel PA - 10/28/2022 8:30 AM EDT Chief Complaint: No chief complaint on file. Subjective: HPI: Ely Mahmood is a 17 y.o. female presenting to the [facility] with the following concerns: ??? White milky discharge from nipples bilaterally. She noticed it on 10/24/2022 after she had beenin the shower and examining her breasts. There was some tenderness as well. Has not noted any discharge since then. Still notes a little tenderness with palpation, but just mild. ??? LMP 09/16/2022. Not currently using contraception because she might desire . 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 Has a new partner x 1 mos. They have been sexually active, most recently 2 weeks ago. Did not use condom, but took Plan B - because whileaurora feels ready, he is not. ROS: Review of Systems Pertinent Past medical and surgical history: Patient Active Problem List Diagnosis Code ??? 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 Sleep disturbances G47.9 ??? 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 Wears hearing aid Z97.4 ??? Conductive hearing loss, unilateral with unrestricted hearing on the contralateral side H90.2 ??? 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 High risk social situation Z60.9 ??? 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 Depression F32.A ??? Acute right-sided low back pain without sciatica M54.50 ??? Encounter for female control Z30.019 ??? Acne vulgaris L70.0 ??? Subclinical hypothyroidism E03.8 Past Medical History: Diagnosis Date ??? Acne vulgaris 10/26/2019 ??? Asthma asthma as baby ??? Bronchopulmonary dysplasia ??? Chronic otitis media ??? Depression 10/05/2018 ??? Developmental delay ??? Ex-29 week ??? Scoliosis ??? Speech delay [...] to Visit Medication Sig Dispense Refill ??? ibuprofen (Advil) 600 mg tablet ??? albuteroL 90 mcg/actuation HFA Aerosol Inhaler Inhale 2 puffs into the lungs every 4 hours as needed for Wheezing. Use with spacer 1 each 5 ??? calcium carbonate (TUMS) 200 mg calcium (500 mg) Tablet, Chewable Take 1 tablet by mouth as needed. ??? norethindrone-ethinyl estradiol (Microgestin 1.5/30) 1.5-30 mg-mcg tablet Take 1 tablet by mouth daily. (Patient not taking: Reported on 10/07/2022) 84 tablet 3 ??? sertraline (Zoloft) 25 mg Tablet Take 25 mg by mouth daily. ??? [facility] Spacer Current Facility-Administered Medications on File Prior to Visit Medication Dose Route Frequency Provider Last Rate Last Admin ??? medroxyPROGESTERone (Depo-PROVERA) injection 150 mg 150 mg Intramuscular Q 3 Months Earle Cade MD Allergies Allergen Reactions ??? Band-Aid [Adhesive Bandage] Rash Fabric band-aids Objective: VS: BP 122/80 Pulse 95 Ht (!) 149.9 cm (4' 11) Wt 62.3 kg (137 lb 6.4 oz) LMP 09/16/2022 SpO2 98% BMI 27.75 kg/m?? Physical Exam Constitutional: General: She is not in acute distress. Appearance: Normal appearance. Cardiovascular: Rate and Rhythm: Normal rate. Pulmonary: Effort: Pulmonary effort is normal. Comments: Breast exam performed in sitting and supine position Chest: Breasts: No bleeding. Breasts are symmetrical. Right: No inverted nipple, mass, nipple discharge, skin change or tenderness. Left: No inverted nipple, mass, nipple discharge, skin change or tenderness. Neurological: Mental Status: She is alert. Assessment and Plan: Ely Mahmood is a 17 y.o. female with: 1) bilateral nipple discharge 2) secondary amenorrhea -UPT negative today 3) contraceptive counseling 4) STI screening No evidence of discharge or crusting on today's exam, no other breast abnormality. Her description of milky discharge, bilateral, occurring after breast stimulation is most c/w with benign galactorrhea. Will check prolactin level, TSH. Secondary amenorrhea could be d/t stress. She does not have a hi story of irregular periods, but we reviewed importance of having a period at least every 3 months, testing if she is not using contraception. Also had lengthy discussion about prevention and use of contraception if she and her partner are not ready to have a child together. She has control pill prescription already and discussed that this would be more effective to take regularly than to episodically take plan B. Also encouraged condom use for prevention of STI until she and her partner decide to become exclusive and get testing. Diagnoses and all orders for this visit: Amenorrhea, secondary - POCT urine Routine screening for STI (sexually transmitted infection) - GC Gene Amp ([facility]/CGP/APD/NLH) Urine - Chlamydia Gene Amp ([facility]/CGP/APD/NL) Urine - Trichomonas Gene Amp ([facility]/CGP/APD/NL) Urine Nipple discharge in female - Prolactin; Future - TSH [place]; Future Encounter for general counseling and advice on contraceptive management FOLLOW UP: As needed ABIGAIL Correa 10/28/2022 documented in this encounter Plan of Treatment Upcoming Encounters Date Type Department Care Team (Late st Contact Info) Description 08/08/2024 9:00 AM EST Appointment [facility] [address] [place] [phone] Umu Saucedo RN 08/15/2024 10:45 AM EST TH Visit (TeleHealth) Obstetrics [place] [phone] Dara Kelley MD [facility] [place] [address] 11/25/2024 Hospital [place] [address] Dara Gonzalez MD [facility] [place] [address] 07/12/2025 1:40 PM EST Office [place] [address] Bina Agrawal OD [facility] [place] [address] documented as of this encounter Procedures Procedure Name Priority Date/Time Associated Diagnosis Comments TRICHOMONAS GENE AMP Routine 10/28/2022 10:13 AM EDT Routine screening for STI (sexually transmitted infection) CHLAMYDIA GENE AMP Routine 10/28/2022 10 :13 AM EDT Routine screening for STI (sexually transmitted infection) GC GENE AMP Routine 10/28/2022 10:13 AM EDT Routine screening for STI (sexually transmitted infection) POCT URINE Routine 10/28/2022 9:16 AM EDT Amenorrhea, secondary documented in this encounter Results * TSH [place] (11/24/2022 2:13 PM EDT) Thyroid Stimulating Hormone 3.24 0.27 - 4.20 mcIU/mL [facility] Comment: Reference Interval (mcIU/mL): Females: ??First Trimester: 0.23-3.88 ??Second Trimester: 0.22-3.90 ??Third Trimester: 0.44-4.66 Blood 11/24/2022 2:13 PM EDT 11/24/2022 2:33 PM EDT Narrative Resulting Agency Comment Spec In Lab Earle Cade MD CHEMISTRY ORDERABLE S [facility] [address] [place] [address] * Prolactin (11/24/2022 2:13 PM EDT) Pathologist [facility] Prolactin 23.0 4.8 - 23.3 ng/mL [facility] Blood 11/24/2022 2:13 PM EDT 11/24/2022 6:26 PM EDT Narrative Resulting Agency Comment Spec In Lab Earle Cade MD CHEMISTRY ORDERABLE S Performing Organization Address City/[facility]/ZIP Co de Phone Number [facility] [place] [address] * Trichomonas Gene Amp ([facility]/CGP/APD/NLH) Urine (10/28/2022 10:13 AM EDT) Pathologist [facility] Trich Gene Amp Negative Negative [facility] Comment: Urine collected from males is not an FDA-cleared source for this testing. The performance of this assay for male urine specimens has been validated in-house. Trich Source Urine [facility] Urine 10/28/2022 10:1 3 AM EDT 10/28/2022 5:48 PM EDT Narrative Resulting Agency Comment Spec In Lab Earle Cade MD MICROBIOLOGY - GENE RAL ORDERABLES Performing Organization Address City/[facility]/ZIP Co de Phone Number [facility] [place] [address] * Chlamydia Gene Amp ([facility]/CGP/APD/NLH) Urine (10/28/2022 10:13 AM EDT) Chlamydia Gene Amp Negative Negative [facility] Comment: Eye specimens are not an FDA-cleared source for this testing. The performance of this assay with eye specimens has been validated in-house. Chlm Source Urine [facility] Urine 10/28/2022 10:1 3 AM EDT 10/28/2022 5:48 PM EDT Narrative Resulting Agency Comment Spec In Lab Earle Cade MD MICROBIOLOGY - GENE RAL ORDERABLES [facility] [place] [address] * GC Gene Amp ([facility]/CGP/APD/NLH) Urine (10/28/2022 10:13 AM EDT) GC Gene Amp Negative Negative [facility] Comment: Eye specimens are not an FDA-cleared source for this testing. The performance of this assay with eye specimens has been validated in-house. GC Source Urine [facility] Urine 10/28/2022 10:1 3 AM EDT 10/28/2022 5:48 PM EDT Narrative Resulting Agency Comment Spec In Lab Earle Cade MD MICROBIOLOGY - [place] [address] * POCT urine (10/28/2022 9:16 AM EDT) POC Urine HCG Negative POC Control Internal Controls Acceptable 10/28/2022 9:16 AM EDT Earle Cade MD POINT OF CARE TEST ORDERABLES documented in this encounter Visit Diagnoses Diagnosis Amenorrhea, secondary Absence of menstruation Routine screening for STI (sexually transmitted infection) Screening examination for venereal disease Nipple discharge in female Other sign and symptom in breast Encounter for general counseling and advice on contraceptive management documented in this encounter Care Teams Label Designer Relationship Specialty Start Date End Date Alfreda Molina MD PCP - General Pediatrics 11/30/20 12/04/22 documented as of this encounter
--- OUTSIDE RECORDS SUMMARY | 2024-07-29 00:24 | XMS_ITS | Encounter Summary ---
Author Organization [facility] Address [facility] [place] [address] Care Team Providers Care Powder Worker Tnt Name Role Phone Alfreda Molina MD Primary Care Provider Vicky vailable Encounter Details Date Type Department Care Team (Late st Contact Info) Description 10/07/2022 2:30 PM EDT Office Visit Pediatrics at [address] [phone] Jorge Moser MD [facility] [place] [address] Unprotected sex Social History Tobacco Use Types Packs/Day Years [...] Sign Reading Time Taken Comments Blood Pressure 124/72 10/07/2022 2:23 PM EDT Pulse - - Temperature - - Respiratory Rate - - Oxygen Saturation - - Inhaled Oxygen Concentration - - Weight 60.4 kg (133 lb 3.2 oz) 10/07/2022 2:23 P M EDT Height 152 cm (4' 11.84) 10/07/2022 2:23 PM EDT Body Mass Index 26.15 10/07/2022 2:23 PM EDT Body Mass Index Percentile 85.63% 10/07/2022 2:2 3 PM EDT Growth Chart: [facility] (Girls, 2- 20 Years) documented in this encounter Progress Notes * Fabienne Lakhani MD - 10/07/2022 2:30 PM EDT Assessment: Ely is an 17yo female who presents to clinic for mental health follow-up. She reports that she hashad a difficult last couple of months with her ex-boyfriend passing away and her grandmother passing away. Her mood has been very low and she has felt anxious as well. Reassuringly, she has had greatsupports with her sisters, other grandmother and new boyfriend. She has had no thoughts of self harm or SI. She reports overall her mood is starting to feel a bit better in the last two weeks. Discussed starting therapy and an SSRI. She does not want to start medications but would is wiling to re-engage with therapy. Otherwise, she also wanted to complete a test today as she had unprotected intercourse in the last week. test was negative today. If concerns next week then recommend to repeat. Also discussed all of the different forms of control she can use but she reports she does not want to take the depot or OCP at this time and she would like to use condoms. Plan: -she will call [facility] this week to set up an appointment with a therapist -mental health f/u in 2-4 weeks -reviewed safety plan -discussed contraception Return to Clinic for: Prn worsening Chief Complaint: No chief complaint on file. History of Present Illness: Brian She reports the last couple of months have been very hard She broke up with her previous boyfriend in May as things were not going well In July her ex-boyfriend committed suicide Ely reports that he had been struggling with his mental health and had tried to reach out for helpwithout success Unfortunately a couple of weeks later Grandmother then due to heart attack She reports with these two deaths she has felt overwhelmed, depressed and anxious Her family (sisters and other grandmother) has been great supports during this difficult time She also started dating someone new a couple of weeks ago and he has been very supportive as well She is starting to feel a bit better over the last 2 weeks after working through some of her grief She feels like her mood is overall better but still feels confused about everything She is not on any psych meds and is not seeing a therapy previously saw therapist [facility], does not want to start meds right now She feels no thoughts of self harm or SI Her safety plan: she would tell her sister or grams if she had thoughts of harming/killing herself She is currently working to finish her [employer] completeion program and trying to get a job Of note she reports that she missed her appointment last week for the depot provera shot and had unprotected intercourse Her PATIENT SERVICE TECHNICIAN PST doctor recommended that she start an OCP if she was going to stop doing the depot and sent a prescription Ely never started the OCP She has a test at home that look positive so would like a repeat today PMH: Patient Active Problem List Diagnosis Code ??? [...] Acne vulgaris L70.0 ??? Subclinical hypothyroidism E03.8 Vital Signs: BP 124/72 Ht 152 cm (4' 11.84) Wt 60.4 kg (133 lb 3.2 oz) LMP 09/16/2022 BMI 26.15 kg/m?? PHYSICAL EXAM: General: awake, alert, cooperative, interactive HEENT: NC/AT, PERRL, EOMI, OP clear and without erythema, no cervical lymphadenopathy CV: S1S2+, RRR without murmur Resp: CTA B without wheezes Abd: soft, non-tender, non-distended, no masses or HSM, normoactive bowel sounds Ext: warm, dry, without rashes , capillary refill<2seconds Neuro: grossly intact, gait normal, moves all extremities equally Alfreda Molina MD * Jorge Moser MD - 10/07/2022 2:30 PM EDT The case was discussed in person at the time of the visit or immediately after the visit. The assessment and plan were formulated in discussion with me and I agree with them as documented. I have reviewed the history, physical exam, assessment and plan with the resident. Major issues discussed today: Depressed mood - ?adjustment reaction/disorder in the setting of major social stressors. Interested in psychotherapy. Unprotected sexual activity - using barriers but not currently interested in starting alternatives Plan: - f/u with [facility] - safety plan reviewed - RTC in 2-4 wk - documented in this encounter Plan of Treatment Upcoming Encounters Date Type Department Care Team (Late st Contact Info) Description 08/08/2024 9:00 AM EST Appointment [facility] [address] [phone] Umu Saucedo RN 08/15/2024 10:45 AM EST TH Visit (TeleHealth) Obstetrics [place] [address] Dara Kelley MD [facility] [address] OBSTETRICS [place] [address] 11/25/2024 Hospital [place] [address] Dara Gonzalez MD [facility] OBSTETR[place] [address] 07/12/2025 1:40 PM EST Office [place] [address] Bina Agrawal OD [facility] [place] [address] documented as of this encounter Procedures Procedure Name Priority Date/Time Associated Diagnosis Comments POCT URINE Routine 10/07/2022 3:04 PM EDT Unprotected sex documented in this encounter Results * GC/Chlamydia ([facility]/CGP/APD/NLH) Urine (10/07/2022 3:52 PM EDT) GC Gene Amp Negative Negative [facility] Comment: Eye specimens are not an FDA-cleared source for this testing. The performance of this assay with eye specimens has been validated in-house. GC Source Urine [facility] Chlamydia Gene Amp Negative Negative [facility] Comment: Eye specimens are not an FDA-cleared source for this testing. The performance of this assay with eye specimens has been validated in-house. Chlm Source Urine [facility] Urine 10/07/2022 3:52 PM EDT 10/07/2022 4:37 PM EDT Narrative Resulting Agency Comment Spec In Lab Jorge Moser MD MICROBIOLOGY - NERMS ORDERABLES [facility] [place] [address] * POCT urine (10/07/2022 3:04 PM EDT) POC Urine HCG Negative POC Control Internal Controls Acceptable 10/07/2022 3:04 PM EDT Jorge Moser MD POINT OF CARE VIRGIL T ORDERABLES documented in this encounter Visit Diagnoses Diagnosis Unprotected sex Problems related to high-risk sexual behavior documented in this encounter Care Teams Powder Worker Tnt Relationship Specialty Start Date End Date Alfreda Molina MD PCP - General Pediatrics 11/30/20 12/04/22 documented as of this encounter
--- OUTSIDE RECORDS SUMMARY | 2024-07-29 00:24 | XMS_ITS | Encounter Summary ---
Author Organization [facility] Address [facility] [place] [address] Care Team Providers Care Stripper And Opaquer Apprentice Name Role Phone Edilma Cornejo MD Primary Care Provider [phone] Reason for Visit * Reason Comments Urinary Tract Infection Encounter Details Date Type Department Care Team (Late st Contact Info) Description 12/20/2022 11:07 PM EDT - 12/21/2022 12:12 AM EDT Emergency Emergency Services at [address] [address] Linda Benito MD Acute cystitis with hematuria (Primary Dx); Dysuria Discharge Disposition: Home Social History Tobacco Use [...] Sign Reading Time Taken Comments Blood Pressure 142/80 12/20/2022 11:07 PM EDT Pulse 106 12/20/2022 11:07 PM EDT Temperature 36.7 ??C (98.1 ??F) 12/20/2022 11:07 PM E DT Respiratory Rate - - Oxygen Saturation 99% 12/20/2022 11:07 PM EDT Inhaled Oxygen Concentration - - Weight 61.2 kg (135 lb) 12/20/2022 11:07 PM EDT Height 149.9 cm (4' 11) 12/20/2022 11:07 PM EDT Body Mass Index 27.27 12/20/2022 11:07 PM EDT Body Mass Index Percentile 88.88% 12/20/2022 11: 07 PM EDT Growth Chart: [facility] (Girls, 2- 20 Years) documented in this encounter Discharge Instructions * Discharge Instructions* Linda Benito MD - 12/20/2022 11:59 PM EDT Please come back to the ER if your symptoms worsen or don't get better within a couple of days. They will contact you about your other results if needed. * Attachments The following attachments cannot be sent through Care Everywhere. * UTI (Urinary Tract Infection): Female (Norwegian) documented in this encounter Medications at Time of Discharge Medication Sig Dispensed Refills Start Date End Date cefdinir (Omnicef) 300 mg capsule Take 1 capsule by mouth 2 times daily for 5 days. 10 capsule 12/20/2022 12/25/2022 ibuprofen (Advil) 600 mg tablet 09/10/2022 04/15/2024 norethindrone-ethinyl estradiol (Microgestin 1.5/30) 1.5-30 mg-mcg tabletIndications:Encoun ter for BCP ( control pills) initial prescription Take 1 tablet by mouth daily. 84 tablet 3 09/16/2022 09/11/2023 albuteroL 90 mcg/actuation HFA Aerosol Inhaler Inhale 2 puffs into the lungs every 4 hours as needed for Wheezing. Use with spacer 1 each 5 01/23/2022 05/29/2023 [facility] Spacer 09/07/2018 02/03/2023 calcium carbonate (TUMS) 200 mg calcium (500 mg) Tablet, Chewable Take 1 tablet by mouth as needed. 08/20/2023 documented as of this encounter ED Notes * Linda Benito MD - 12/20/2022 11:34 PM EDT ED Attending Note HPI: Ely Mahmood is a 17 y.o. female who presents to the Emergency Department with complaints of urinary urgency, increased frequency, and burning with urination for the past 3-4 days. She has not had any fever, chills, flank pain, n/v, or hematuria. She had a change in discharge a few weeks ago, becoming thinner and more yellow; took home urine dip that showed concern for infection. Gave sample at women[facility] clinic; no UTI at that time. No dysuria/frequency/urgency then. She is sexually active. Most recently discharge was back to what she considers normal for herself, a little thicker and whiter than a few weeks ago. She also started her period 3 days ago, so difficult to assess discharge at this time. Has a little bit of menstrual cramps, no other abd pain. Denies any genital lesions. No burning except while peeing. No problems sitting/moving. Also of note, she stopped taking DepoProvera shots recently, and this is the first time she's been off of control in a few years. ROS as per HPI Vitals: ED Triage Vitals [12/20/22 2307] BP: 142/80 Heart Rate: (!) 106 Resp: n/a Temp: 36.7 ??C (98.1 ??F) Temp src: Temporal SpO2: 99 % O2 Device: RA O2 Flow Rate (L/min): n/a Physical Exam General: Resting comfortably, NAD Eyes: EOMI, normal conjunctiva HENT: Normocephalic, moist mucous membranes though lips are chapped, no epistaxis Neck: Full ROM, supple CV: Normal peripheral perfusion, cap refill 2 seconds Resp: No increased work of breathing, no stridor or wheezing GI: Non-distended MSK: MAEW, no bony deformities Neuro: CN 2-12 grossly intact, mental status at baseline Skin: no rashes in exposed areas, warm, dry Psych: appropriate for situation, no agitation ED Course: I have reviewed labs. Labs Reviewed URINALYSIS WITH REFLEX CULTURE - Abnormal; Notable for the following components: Result Value Appearance UA Slt Cloudy (*) All other components within normal limits URINALYSIS MICROSCOPIC EXAM - Abnormal; Notable for the following components: RBC UA >182 (*) WBC UA >182 (*) WBCs Clumping Moderate (*) Bacteria UA Moderate (*) Squam Epith UA 30 (*) Trans Epith UA 2 (*) CaOx [place] UA Few (*) All other components within normal limits GC/CHLAMYDIA BACTERIAL VAGINOSIS SCREEN ([facility]D/[facility]) TRICHOMONAS GENE AMP GC/CHLAMYDIA URINE CULTURE HCG QUAL URINE (APD) Assessment and Plan: 17 y.o. female with signs/sx c/w UTI. Overall well appearing. UA, Upreg, GC, Trich, and BV tests ordered. U preg neg. Given the significant amount of bacteria and WBC/RBC relative to squamous cells, I haveelected to treat her for UTI. Given rx for cefdinir; she has requested and been provided with printed rx. Return precautions discussed, d/c instructions given. She will be contacted if other labs return with concerning results. All pt questions answered. Discharged in stable condition. Did this case involve critical care? No Linda Benito MD 12/21/22 0005 documented in this encounter Plan of Treatment Upcoming Encounters Date Type Department Care Team (Late st Contact Info) Description 08/08/2024 9:00 AM EST Appointment [address] [address] Umu Saucedo, RN 08/15/2024 10:45 AM EST TH Visit (TeleHealth) [place]stetrics [place] [address] Dara Kelley MD [facility] [place] [address] 11/25/2024 [place] [address] Dara Gonzalez MD [facility] [place] [address] 07/12/2025 1:40 PM EST Office Visit [facility]mology at [facility] [place] [address] Bina Agrawal, JONELLE [facility] [place] [address] documented as of this encounter Procedures Procedure Name Priority Date/Time Associated Diagnosis Comments TRICHOMONAS GENE AMP STAT 12/20/2022 11:43 PM EDT GC/CHLAMYDIA STAT 12/20/2022 11:43 PM EDT BACTERIAL VAGINOSIS SCREEN ([facility]/APD/[facility]H) STAT 12/20/2022 11:38 PM EDT URINALYSIS MICROSCOPIC EXAM STAT 12/20/2022 11:18 PM EDT URINALYSIS WITH REFLEX CULTURE STAT 12/20/2022 11:18 PM EDT URINE CULTURE STAT 12/20/2022 11:18 PM EDT HCG QUAL URINE (APD) STAT 12/20/2022 11:17 PM EDT documented in this encounter Results * GC/Chlamydia Vaginal (12/20/2022 11:43 PM EDT) GC Gene Amp Negative Negative [facility] Comment: Eye specimens are not an FDA-cleared source for this testing. The performance of this assay with eye specimens has been validated in-house. GC Source Vaginal [facility] Chlamydia Gene Amp Negative Negative [facility] Comment: Eye specimens are not an FDA-cleared source for this testing. The performance of this assay with eye specimens has been validated in-house. Chlm Source Vaginal [facility] Vaginal 12/20/2022 11:4 3 PM EDT 12/21/2022 10:55 AM EDT Narrative Resulting Agency Comment Spec In Lab Linda Benito MD MICROBIOLOGY - GENER AL ORDERABLES Performing Organization Address City/[facility]/ZIP Co de Phone Number [facility] [place] [address] * Trichomonas Gene Amp Vaginal (12/20/2022 11:43 PM EDT) Trich Gene Amp Negative Negative [facility] Comment: Urine collected from males is not an FDA-cleared source for this testing. The performance of this assay for male urine specimens has been validated in-house. Trich Source Vaginal [facility] Vaginal 12/20/2022 11:4 3 PM EDT 12/21/2022 10:55 AM EDT Narrative Resulting Agency Comment Spec In Lab Linda Benito MD MICROBIOLOGY - GENER AL ORDERABLES Performing Organization Address [facility] Co de Phone Number [facility] [place] [address] * Bacterial Vaginosis Screen ([facility]/CGP/APD/NLH) (12/20/2022 11:38 PM EDT) Bacterial Vaginosis Screen Bacterial Vaginosis Screen: Negative [facility] Vaginal 12/20/2022 11:3 8 PM EDT 12/21/2022 10:55 AM EDT Narrative Resulting Agency Comment Spec In Lab Linda Benito MD MICROBIOLOGY - GENER AL ORDERABLES Performing Organization Address City/[facility] Co de Phone Number [facility] [place] [address] * (ABNORMAL) Urine culture (12/20/2022 11:18 PM EDT) Urine Culture 50,000-99,000 cfu/ml Escherichia coli(A) [facility] Organism Escherichia coli(A) [facility] Clean Catch Urine 12/20/2022 11:18 PM EDT 12/21/2022 10:54 AM EDT Narrative Resulting Agency Comment Spec In Lab Organism Antibiotic Method Susceptibility Escherichia coli Amikacin VITEK 2 METHOD Sensitive Escherichia coli Ampicillin + Sulbactam VITEK 2 METHOD Sensitive Escherichia coli Aztreonam VITEK 2 METHOD Sensitive Escherichia coli Cefazolin VITEK 2 METHOD Sensitive Escherichia coli Cefepime VITEK 2 METHOD <=1: Sensitive Escherichia coli Ceftazidime VITEK 2 METHOD <=1: Sensitive Escherichia coli Ceftriaxone VITEK 2 METHOD Sensitive Escherichia coli Ertapenem VITEK 2 METHOD Sensitive Escherichia coli Gentamicin VITEK 2 METHOD Sensitive Escherichia coli Levofloxacin VITEK 2 METHOD Sensitive Comment: Levofloxacin and Ciprofloxacin may not adequately treat infections in critically ill patients even when isolates test susceptible in the laboratory. Contact Infectious Disease before using in critically ill patients. Escherichia coli Meropenem VITEK 2 METHOD <=0.25: Sensitive Escherichia coli Nitrofurantoin VITEK 2 METHOD Sensitive Escherichia coli Piperacillin/Tazobactam VITEK 2 METHO D <=4: Sensitive Escherichia coli Tetracycline VITEK 2 METHOD Sensitive Escherichia coli Tobramycin VITEK 2 METHOD Sensitive Escherichia coli Trimethoprim/Sulfa VITEK 2 METHOD Sensitive Linda Benito MD MICROBIOLOGY - [facility] AL ORDERABLES Performing Organization Address [facility] Co de Phone Number [facility] [place] [address] * (ABNORMAL) Urinalysis Microscopic Exam (12/20/2022 11:18 PM EDT) RBC, Urine >182(H) 0 - 4 /HPF [facility] WBC, Urine >182(H) 0 - 5 /HPF [facility] WBC Clumps, Urine Moderate( A) None /HPF [facility] Bacteria, Urine Moderate( A) None /HPF [facility] Squamous Epithelial Cells Raw Data, Urine 30(H) <=4 /HPF [facility] Transitional Epithelial Cells, Urine 2(H) <=1 /HPF [facility] Calcium Oxalate Crystal, Urine Few(A) None /HPF [facility] Clean Catch Urine Urine / Unknown 12/20/2022 11:18 PM EDT 12/20/2022 11:31 PM EDT Narrative Resulting Agency Comment Spec In Lab Linda Benito MD URINE ORDERABLES Performing Organization Address [facility]/ZIP Co de Phone Number [facility] [place] [address] * (ABNORMAL) Urinalysis with reflex Culture (12/20/2022 11:18 PM EDT) Glucose, Urine Dipstick Not Perf Negative [facility] Comment:Unable to perform ch emistry testing due to interfering substances. Protein, Urine Dipstick Not Perf Negative [facility] Comment:Unable to perform ch emistry testing due to interfering substances. Bilirubin, Urine Dipstick Not Perf Negative [facility] Comment: Unable to perform chemistry testing due to interfering substances. Clinical correlation required for positive Urine Bilirubin results as false positive may occur with some drugs and drug related products. If a false positive is suspected a serum total bilirubin should be considered if clinically indicated. Urobilinogen, Urine Dipstick Not Perf Normal [facility] Comment:Unable to perform ch emistry testing due to interfering substances. pH, Urn (dipstick) See Note 5.0 - 8.0 [facility] Comment:Unable to perform ch emistry testing due to interfering substances. Blood, Urine Dipstick Not Perf Negative [facility] Comment:Unable to perform ch emistry testing due to interfering substances. Ketone, Urine Dipstick Not Perf Negative [facility] Comment:Unable to perform ch emistry testing due to interfering substances. Nitrite, Urine Dipstick Not Perf Negative [facility] Comment:Unable to perform ch emistry testing due to interfering substances. Leukocytes, Urine Dipstick Not Perf Negative [facility] Comment:Unable to perform ch emistry testing due to interfering substances. Appearance, Urine Dipstick Slt Cloudy(A) Clear [facility] Specific [place] Urine Automated See Note 1.006 - 1.030 [facility] Comment:Unable to perform ch emistry testing due to interfering substances. Color, Urine Dipstick [facility] Reflex to Culture No [facility] Clean Catch Urine 12/20/2022 11:18 PM EDT 12/20/2022 11:31 PM EDT Narrative Resulting Agency Comment Spec In Lab Linda Benito MD URINE ORDERABLES [facility] [address] [place] [address] * hCG Qual Urine (APD) (12/20/2022 11:17 PM EDT) Human Chorionic Gonadotropin Qualitative, Urine Negative [facility] Comment: Dilute urine samples can result in a false negative test. Repeat testing on a first morning sample or a plasma quantitative hCG measurement is recommended. Urine 12/20/2022 11:1 7 PM EDT 12/20/2022 11:31 PM EDT Narrative Resulting Agency Comment Spec In Lab Linda Benito MD URINE ORDERABLES [facility] [address] [place] [address] documented in this encounter Visit Diagnoses Diagnosis Acute cystitis with hematuria- Primary Acute cystitis Dysuria documented in this encounter Care Teams Stripper And Opaquer Apprentice Relationship Specialty Start Date End Date Edilma Cornejo MD [facility] [place] [address] PCP - General 12/05/22 documented as of this encounter
--- OUTSIDE RECORDS SUMMARY | 2024-07-29 00:24 | XMS_ITS | Encounter Summary ---
Author Organization [facility] Address [facility] [place] [address] Care Team Providers Care Golf Cart Attendant Name Role Phone Edilma Cornejo MD Primary Care Provider [phone] Encounter Details Date Type Department Care Team (Latest Contact Info) Description 05/18/2023 2:00 PM EST TH Visit (TeleHealth) Pediatrics at [address] [address] Maureen Clifton [facility] DR PSYCHIATRY [place] [address] Mild recurrent major depression; Generalized anxiety disorder Social History Tobacco Use [...] this encounter Progress Notes * Maureen Clifton [facility] - 05/18/2023 2:00 PM EST Integrated Behavioral Health Assessment Patient Name: Ely Mahmood MR#: [id number] Today's Date: 05/18/23 School/Grade: out of school : 2005 PCP: Edilma Cornejo MD Time Spent: 60 HISTORY OF PRESENT ILLNESS: Ely Mahmood is a 18 y.o.-year-old, female referred to the Behavioral [facility] Clinic by his Edilma Cornejo MD to address concerns related to Anxiety. The purpose of this evaluation was to assess Ely Mahmood current level of functioning and to provide appropriate treatment recommendations. MEASURES:PAVITHRA-7 and PQH-9. SOCIAL HISTORY:Lives with grandparents, sister recently moved in. She has one brother and three other sisters. Father was in and out of correction and mother was not able to parent. Ely was born at 27 weeks. Stayed in the NICU for a long time. When she was discharged mother lived at Grandparent's home. Grandparents did the majority of the care for Ely. My mother didn't really want me. She reports that there have been a lot changes and losses in her life. She has had a miscarriage, broken up with two partners and one of them in the last year. She describes that her father's drug use and imprisonment has negatively affected their relationship and she describes that he tried to kill himself multiple times. SCHOOL HISTORY:Completed High School through the [employer]. She is working at a new job that she states she loves. 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 HEALTH BEHAVIORS: Sleep is usually between 2-7 hours. Used to be the majority of the day. Wakes up frequently in the night. Sometimes trouble falling asleep. Difficulty falling back asleep. Poor appetite. Usually only eats once a day, usually dinner. Hygiene is not impacted by mood. Hangs out with friends as much as possible. PSYCHIATRIC HISTORY: Had a therapist from [facility] that went to her school. Saw therapists in school. DEVELOPMENTAL/MEDICAL HISTORY: WNL for all major milestones. FAMILY PSYCHIATRIC/MEDICAL HISTORY:Family history of addiction, Bipolar Disorder, ADHD. Family history of high blood pressure and heart issues. Cancer is also in the family. MSE: Appearance: neatly dressed, good hygiene. Appears stated age. Attitude: Friendly, cooperative Behavior: normal. No agitation Affect: full range and intensity or Euthymic, irritable, restricted, blunted, Flat, Inappropriate, anxious, labile/tearful Speech: normal Thought process: linear, no evidence of thought disorder, flight of ideas, or poverty of thought. Thought content: no apparent delusions, phobias, obsessions or preoccupations, Si/hi: denied Perceptions: no apparent hallucinations or sensory illusions Cognition: alert, oriented, intact memory Insight: no evidence of impairment Judgment: Intact Language: normal Orientation: alert, Associations: close Attention/Concentration: good Cognition: no evidence of impairment, did not formally test Memory: no evidence of impairment, did not formally test Fund of Knowledge:good Insight:good Judgment: good ASSESSMENT/FORMULATION: Depressed mood second to anxiety and unresolved stressors. Chronic stressful situations interfere with her ability to build continuous positive outcomes. She struggles with sleep, appetite, motivation and energy. She describes feeling numb a lot of the time and ruminating onlosses. DSM IV DIAGNOSES: Major Depression F32.0 and Generalized Anxiety F41.0 GOAL: Reduce anxiety as rated by self on GAD7. Objective: To increase the use of skills to increase problem solving as evidenced by learning and using CBT skills 75% of the time when triggered as endorsed by patient. RECOMMENDATIONS: Engage with [facility] for up to three months. documented in this encounter Plan of Treatment Upcoming Encounters Date Type Department Care Team (Late st Contact Info) Description 08/08/2024 9:00 AM EST Appointment [address] [address] Umu Saucedo RN 08/15/2024 10:45 AM EST Visit (TeleHealth) Obstetrics [place] [address] Dara Kelley MD [facility] OBSTETRICS AND [place] [address] 11/25/2024 Hospital [place] [address] Dara Gonzalez MD [facility] OBSTETRICS [place] [address] 07/12/2025 1:40 PM EST Office [place] [address] Bina Agrawal, JONELLE [facility] [place] [address] documented as of this encounter Visit Diagnoses Diagnosis Mild recurrent major depression Major depressive disorder, recurrent episode, mild Generalized anxiety disorder documented in this encounter Care Teams Golf Cart Attendant Relationship Specialty Start Date End Date Edilma Cornejo MD [facility] [address] PCP - General 12/05/22 documented as of this encounter
--- OUTSIDE RECORDS SUMMARY | 2024-07-29 00:24 | XMS_ITS | Encounter Summary ---
Author Organization [facility] Address [facility] [place] [address] Care Team Providers Care Credit Reference Clerk Name Role Phone Edilma Cornejo MD Primary Care Provider [phone] Encounter Details Date Type Department Care Team (Latest Contact Info) Description 12/30/2022 Travel Social History Tobacco Use Types Packs/Day [...] Info) Description 08/08/2024 9:00 AM EST Appointment [facility] [address] [phone] Umu Saucedo RN 08/15/2024 10:45 AM EST TH Visit (TeleHealth) Obstetrics [place] [address] Dara Kelley MD [facility] DR OBSTETRICS [place] [address] 11/25/2024 Hospital [place] [address] Dara Gonzalez MD [facility] OBSTETRICS [place] [address] 07/12/2025 1:40 PM EST Office [place] [address] Bina Agrawal, JONELLE [facility] [place] [address] documented as of this encounter Visit Diagnoses Not on filedocumented in this encounter Care Teams Credit Reference Clerk Relationship Specialty Start Date End Date Edilma Cornejo MD [facility] [place] [address] PCP - General 12/05/22 documented as of this encounter
--- OUTSIDE RECORDS SUMMARY | 2024-07-29 00:24 | XMS_ITS | Encounter Summary ---
Author Organization [facility] Address [facility] [place] [address] Care Team Providers Care Field Sales Associate Name Role Phone Alfreda Molina MD Primary Care Provider Vicky vailable Reason for Visit * Reason Comments Follow-up Encounter Details Date Type Department Care Team (Late st Contact Info) Description 11/03/2022 4:00 PM EDT Office Visit Pediatrics at [address] [address] Alfreda Molina MD Depression, unspecified depression type Social History Tobacco [...] Reading Time Taken Comments Blood Pressure 122/76 11/03/2022 4:18 PM EDT Pulse - - Temperature - - Respiratory Rate - - Oxygen Saturation - - Inhaled Oxygen Concentration - - Weight 61.2 kg (135 lb) 11/03/2022 4:18 PM EDT Height 149 cm (4' 10.66) 11/03/2022 4:18 PM EDT Body Mass Index 27.58 11/03/2022 4:18 PM EDT Body Mass Index Percentile 89.83% 11/03/2022 4:1 8 PM EDT Growth Chart: CDC (Girls, 2- 20 Years) documented in this encounter Progress Notes * Alfreda Molina MD - 11/03/2022 4:00 PM EDT Assessment: Ely is an 17yo female who presents to care for mental health follow-up. Overall reports she is doing much better with very minimal symptoms of depression and anxiety. She reports things are going well with her boyfriend and she just got a job! Has not called [facility] to set up an appointment but will consider calling in the next couple of weeks. No thoughts of self harm and reviewed safety plan. Only eating one meal and snacks in a day so discussed changing the snacks to try to eat at least 2 meals. Plan: -call [facility] to set up therapy in next couple of weeks -follow-up in 3 months Return to Clinic for: -prn persistence or worsening Chief Complaint: Chief Complaint Patient presents with ??? 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 PHYSICAL EXAM: General: awake, alert, cooperative, interactive HEENT: NC/AT, PERRL, EOMI, OP clear and without erythema, no cervical lymphadenopathy CV: S1S2+, RRR without murmur Resp: CTA B without wheezes Abd: soft, non-tender, non-distended, no masses, normoactive bowel sounds Ext: warm, dry, without rashes , capillary refill<2seconds Neuro: grossly intact, gait normal, moves all extremities equally * Kathy Lema MD - 11/03/2022 4:00 PM EDT The case was discussed in person at the time of the visit or immediately after the visit. The assessment and plan were formulated in discussion with me and I agree with them as documented. I have reviewed the history, physical exam, assessment and plan with the resident. Major issues discussed today: mental health follow up Plan: set up therapy, follow up in 3 months documented in this encounter Miscellaneous Notes * Addendum Note - Kathy Lema MD - 11/03/2022 4:00 PM EDTAddended by: KATHY LEMA on: 11/04/2022 04:12 PM Modules accepted: Level of Service documented in this encounter Plan of Treatment Upcoming Encounters Date Type Department Care Team (Late st Contact Info) Description 08/08/2024 9:00 AM EST Appointment [facility] [address] [address] Umu Saucedo RN 08/15/2024 10:45 AM EST TH Visit (TeleHealth) Obstetrics [place] [address] Dara Kelley MD [facility] OBSTETRICS [place] [address] 11/25/2024 Hospital Encounter [place] [address] Draa Gonzalez MD [facility] OBSTETRICS [place] [address] 07/12/2025 1:40 PM EST Office [place] [phone] Bina Agarwal OD [facility] [place] [address] documented as of this encounter Visit Diagnoses Diagnosis Depression, unspecified depression type documented in this encounter Care Teams Field Sales Associate Relationship Specialty Start Date End Date Alfreda Molina MD PCP - General Pediatrics 11/30/20 12/04/22 documented as of this encounter
--- OUTSIDE RECORDS SUMMARY | 2024-07-29 00:24 | XMS_ITS | Encounter Summary ---
Author Organization [facility] Address [facility] [place] [address] Care Team Providers Care Statistical Programmer Analyst Name Role Phone Alfreda Molina MD Primary Care Provider Vicky vailable Encounter Details Date Type Department Care Team (Latest Contact Info) Description 10/28/2022 Travel Social History Tobacco Use Types Packs/Day [...] Info) Description 08/08/2024 9:00 AM EST Appointment [address] [phone] Umu Saucedo RN 08/15/2024 10:45 AM EST TH Visit (TeleHealth) Obstetrics [place] [address] Dara Kelley MD [facility] [address] OBSTET[place]ICS [place] [address] 11/25/2024 Hospital [place] [phone] Dara Gonzalez MD [facility] OBSTETRICS [place] [address] 07/12/2025 1:40 PM EST Office Visit Ophthalmology at [place] [phone] Bina Agrawal OD [facility] [place] [address] documented as of this encounter Visit Diagnoses Not on filedocumented in this encounter Care Teams Statistical Programmer Analyst Relationship Specialty Start Date End Date Alfreda Molina MD PCP - General Pediatrics 11/30/20 12/04/22 documented as of this encounter
--- OUTSIDE RECORDS SUMMARY | 2024-07-29 00:24 | XMS_ITS | Encounter Summary ---
Author Organization [facility] Address [facility] [place] [address] Care Team Providers Care Family Practice Medical Doctor Name Role Phone Alfreda Molina MD Primary Care Provider Vicky vailable Encounter Details Date Type Department Care Team (Late st Contact Info) Description 05/19/2022 Telephone Pediatrics at [address] [phone] Colette Kapoor Social History Tobacco Use Types Packs/Day Years [...] encounter Miscellaneous Notes * Telephone Encounter - Colette Kapoor - 05/19/2022 10:59 AM EST Left message to call the office to reschedule appointment documented in this encounter Plan of Treatment Upcoming Encounters Date Type Department Care Team (Late st Contact Info) Description 08/08/2024 9:00 AM EST Appointment [facility] [address] [place] [address] Umu Saucedo, RN 08/15/2024 10:45 AM EST TH Visit (TeleHealth) Obstetrics and Gynecology at [place] [phone] Dara Kelley MD [facility] OBSTETRICS [place] [address] 11/25/2024 Hospital [place] [address] Dara Gonzalez MD [facility] OBSTETRICS [place] [address] 07/12/2025 1:40 PM EST Office Visit Ophthalmology at [place] [phone] Bina Agrawal OD [facility] [place] [address] documented as of this encounter Visit Diagnoses Not on filedocumented in this encounter Care Teams Family Practice Medical Doctor Relationship Specialty Start Date End Date Alfreda Molina MD PCP - General Pediatrics 11/30/20 12/04/22 documented as of this encounter
--- OUTSIDE RECORDS SUMMARY | 2024-07-29 00:24 | XMS_ITS | Encounter Summary ---
Author Organization [facility] Address [facility] [place] [address] Care Team Providers Care Refinery Operator Name Role Phone Edilma Cornejo MD Primary Care Provider [phone] Encounter Details Date Type Department Care Team (Late st Contact Info) Description 12/30/2022 10:30 AM EDT Office Visit [facility] [address] [place] [phone] Edilma Patel, PA [address] OBSTETRICS [place] [address] Urinary frequency; Vaginal irritation; Cervical lesion Social History Tobacco Use Types Packs/Day [...] Sign Reading Time Taken Comments Blood Pressure 122/66 12/30/2022 10:41 AM EDT Pulse 86 12/30/2022 10:41 AM EDT Temperature - - Respiratory Rate - - Oxygen Saturation 99% 12/30/2022 10:41 AM EDT Inhaled Oxygen Concentration - - Weight 60.8 kg (134 lb) 12/30/2022 10:41 AM EDT Height 149.9 cm (4' 11) 12/30/2022 10:41 AM EDT Body Mass Index 27.06 12/30/2022 10:41 AM EDT Body Mass Index Percentile 88.26% 12/30/2022 10: 41 AM EDT Growth Chart: CDC (Girls, 2- 20 Years) documented in this encounter Progress Notes * Edilma Patel PA - 12/30/2022 10:30 AM EDT Chief Complaint: No chief complaint on file. Subjective: HPI: Ely Mahmood is a 17 y.o. female presenting to the [facility] with the following concerns: pain and dryness, ? infection Vulvar itching, irritation - started on 12/26. Had some light pink blood in vaginal discharge,yesterday. Discharge seems like her normal, though maybe a bit cloudy. Denies pelvic pain, dysuria, irregular vaginal bleeding. Sexual intercourse the week before, also yesterday - no pain with intercourse. She is sexually active with 1 partner, together since August 2022. Screened negative 12/20/2022 GC/Chlamydia, [facility] visit 12/20/2022 for urinary urgency, frequency and dysuria, treated for UTI with cefdinir 300 mg BID x 5 days. BV Screen, GC/Chlamydia, Trichomonas all negative. Reports her symptoms have resolved though ? Urinary frequency LMP 12/16/2022 ROS: Review of Systems Pertinent Past medical and surgical history: Seen 02/11/2022 with multiple painful ulcerated lesionson labia. Also had history of fever x 3 days and body aches. 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 02/11/2022 HSV 1 and 2 PCR negative 02/14/2022 HSV 1 and 2 IgG negative 04/08/2022 HSV 1 and 2 PCR negative 06/23/2022 HSV 1 and 2 IgG negative Patient Active Problem List Diagnosis Code CIS [...] Z30.019 Acne vulgaris L70.0 Subclinical hypothyroidism E03.8 Past Medical History: Diagnosis Date Acne vulgaris [...] Prior to Visit Medication Sig Dispense Refill ibuprofen (Advil) 600 mg tablet albuteroL 90 mcg/actuation HFA Aerosol Inhaler Inhale 2 puffs into the lungs every 4 hours as needed for Wheezing. Use with spacer 1 each 5 calcium carbonate (TUMS) 200 mg calcium (500 mg) Tablet, Chewable Take 1 tablet by mouth as needed. norethindrone-ethinyl estradiol (Microgestin 1.5/30) 1.5-30 mg-mcg tablet Take 1 tablet by mouth daily. (Patient not taking: Reported on 10/07/2022) 84 tablet 3 [facility] Spacer Current Facility-Administered Medications on File Prior to Visit Medication Dose Route Frequency Provider Last Rate Last Admin medroxyPROGESTERone (Depo-PROVERA) injection 150 mg 150 mg Intramuscular Q 3 Months Earle Cade MD Allergies Allergen Reactions Band-Aid [Adhesive Bandage] Rash Fabric band-aids Objective: VS: BP 122/66 Pulse 86 Ht (!) 149.9 cm (4' 11) Wt 60.8 kg (134 lb) LMP 12/16/2022 (Exact Date) SpO2 99% BMI 27.06 kg/m?? Physical Exam Pelvic exam: VULVA: normal appearing labia majora without discharge or lesions, labia minora erythematous bilaterally no discharge or lesions noted, VAGINA: vaginal erythema and mild tenderness on vaginal taylor, moderate amount of white discharge, CERVIX: 2 erythematous areas on cervix with vesicular appearance, no discharge, no CMT, UTERUS: uterus is normal size, shape, consistency and nontender, ADNEXA: normal adnexa in size, nontender and no masses. POC UA: trace leuk, trace blood, neg nitrite, neg protein Wet Prep/EVANS: Wet mount: Trichomonas: neg Clue cells: numerous PH: < 5 EVANS prep: Hyphae: neg Buds: numerous Whiff test: pos Assessment and Plan: Ely Mahmood is a 17 y.o. female with: 1) vulvovaginitis - mixed etiology, microscopy + clue cells, + buds, + whiff test 2) urinary frequency Vulvovaginitis of mixed etiology on microscopy, BV and yeast. Will treat with fluconazole 150 mg POx 1 dose, and metronidazole 500 mg PO BID x 7 days. Cautioned to avoid alcohol until 24 hr after last dose. Pt reporting some lingering possible urinary frequency, no other symptoms, with POC UA showing trace leukocytes and blood. Will send for culture and treat pending results. In the meantime shewill monitor and let me know if symptoms worsen. Diagnoses and all orders for this visit: Urinary frequency - POCT urine dipstick - Urine culture Clean Catch Urine Vaginal irritation - metroNIDAZOLE (Flagyl) 500 mg tablet; Take 1 tablet by mouth 2 times daily for 7 days. - fluconazole (Diflucan) 150 mg tablet; Take 1 tablet by mouth once for 1 dose. Cervical lesion - HSV 1 and 2 PCR FOLLOW UP: Return if symptoms worsen or fail to improve. ABIGAIL Correa 12/31/2022 documented in this encounter Plan of Treatment Upcoming Encounters Date Type Department Care Team (Late st Contact Info) Description 08/08/2024 9:00 AM EST Appointment [address] [phone] Umu Saucedo RN 08/15/2024 10:45 AM EST TH Visit (TeleHealth) Obstetrics [place] [address] Dara Kelley MD [facility] OBSTETRICS [place] [address] 11/25/2024 [place] [address] Dara Gonzalez MD [facility] OBSTETRICS [place] [address] 07/12/2025 1:40 PM EST Office [place] [phone] Bina Agrawal OD [facility] [place] [address] documented as of this encounter Procedures Procedure Name Priority Date/Time Associated Diagnosis Comments HSV 1 AND 2 PCR Routine 12/30/2022 3:22 PM EDT Cervical lesion URINE CULTURE Routine 12/30/2022 3:22 PM EDT Urinary frequency POCT URINE DIPSTICK Routine 12/30/2022 1 1:00 AM EDT Urinary frequency documented in this encounter Results * HSV 1 and 2 PCR (12/30/2022 3:22 PM EDT) HSV-1 PCR Not Detected Not Detected [facility] HSV-2 PCR Not Detected Not Detected [facility] HSV Source Cervical [facility] Comment: The only FDA approved specimen types for this assay are CSF and genital lesions. Cervical 12/30/2022 3:22 PM EDT 12/30/2022 6:18 PM EDT Comment:Specimen Type:->Cerv ical Narrative Resulting Agency Comment Spec In Lab Earle Cade MD MICROBIOLOGY - GENE RAL ORDERABLES Performing Organization Address City/[facility]/ZIP Co de Phone Number [facility] [place] [address] * (ABNORMAL) Urine culture Clean Catch Urine (12/30/2022 3:22 PM EDT) Urine Culture 10,000-49,00 0 cfu/ml Berenice albicans 10,000-49,00 0 cfu/ml Normal mucosal eligio (A) [facility] Organism Berenice albicans(A) [facility] Clean Catch Urine 12/30/2022 3:22 PM EDT 12/30/2022 6:17 PM EDT Narrative Resulting Agency Comment Spec In Lab Earle Cade MD MICROBIOLOGY - GENE RAL ORDERABLES Performing Organization Address [facility] Co de Phone Number [facility] [place] [address] * (ABNORMAL) POCT urine dipstick (12/30/2022 11:00 AM EDT) POC Sp Bybee 1.030 1.002 - 1.030 POC pH, UA 5.5 5.0 - 8.5 POC Leuk, UA Trace Negative - Negative POC Nitrite, UA Negative Negative - Negative POC Protein, UA Negaitve Negative - Negative mg/dL POC Glucose, UA Negative Normal - Normal mg/dL POC Ketone, UA Negative Negative - Negative POC Urobil, UA 0.2 0.2 - 1.0 mg/dL POC Bili, UA Negative Negative - Negative POC Blood, UA Trace-intact Negative - Negative jones/uL 12/30/2022 11:0 0 AM EDT Earle Cade MD POINT OF CARE TEST ORDERABLES documented in this encounter Visit Diagnoses Diagnosis Urinary frequency Vaginal irritation Unspecified noninflammatory disorder of vagina Cervical lesion Unspecified noninflammatory disorder of cervix documented in this encounter Care Teams Refinery Operator Relationship Specialty Start Date End Date Edilma Cornejo MD [facility] [place] [address] PCP - General 12/05/22 documented as of this encounter
--- OUTSIDE RECORDS SUMMARY | 2024-07-29 00:24 | XMS_ITS | Encounter Summary ---
Author Organization [facility] Address [facility] [place] [address] Care Team Providers Care Bus Cleaner Name Role Phone Edilma Cornejo MD Primary Care Provider [phone] Encounter Details Date Type Department Care Team (Latest Contact Info) Description 03/11/2023 Travel Social History Tobacco Use Types Packs/Day [...] Description 08/08/2024 9:00 AM EST Appointment [facility] [address] [phone] Umu aSucedo RN 08/15/2024 10:45 AM EST TH Visit (TeleHealth) Obstetrics [place] [address] Dara Kelley MD [facility] [address] OBSTETRICS [place] [address] 11/25/2024 Hospital [place] [address] Dara Gonzalez MD [facility] OBSTETRICS [place] [address] 07/12/2025 1:40 PM EST Office [place] [address] Bina Agrawal, JONELLE [facility] [place] [address] documented as of this encounter Visit Diagnoses Not on filedocumented in this encounter Care Teams Bus Cleaner Relationship Specialty Start Date End Date Edilma Cornejo MD [facility] [place] [address] PCP - General 12/05/22 documented as of this encounter
--- OUTSIDE RECORDS SUMMARY | 2024-07-29 00:24 | XMS_ITS | Encounter Summary ---
Author Organization [facility] [place] [address] Care Team Providers Care Account Classification Clerk Name Role Phone Alfreda Molina MD Primary Care Provider Vicky vailable Encounter Details Date Type Department Care Team (Latest Contact Info) Description 10/07/2022 3:15 PM EDT Laboratory Appointment Lab [place] [phone] Vulvar lesion; Unprotected sex; Elevated TSH Social History Tobacco Use Types Packs/Day Years [...] Description 08/08/2024 9:00 AM EST Appointment [address] [phone] Umu Saucedo RN 08/15/2024 10:45 AM EST TH Visit (TeleHealth) Obstetrics [place] [address] Dara Kelley MD [facility] OBSTETRICS [place] [address] 11/25/2024 Hospital Encounter [place] [phone] Dara Gonzalez MD [facility] OBSTETRICS [place] [address] 07/12/2025 1:40 PM EST Office Visit Ophthalmology at [place] [phone] Bina Agrawal OD [facility] [place] [address] documented as of this encounter Procedures Procedure Name Priority Date/Time Associated Diagnosis Comments HC GC GENE AMP Routine 10/07/2022 3:52 PM EDT Unprotected sex HSV 1 AND 2 IGG ANTIBODIES Routine 10/07/2022 3:43 PM EDT Vulvar lesion TSH Routine 10/07/2022 3:43 PM EDT Elevated TSH T4, FREE Routine 10/07/2022 3:43 PM EDT Elevated TSH documented in this encounter Results * GC/Chlamydia ([facility]/CGP/APD/[facility]) Urine (10/07/2022 3:52 PM EDT) GC Gene Amp Negative Negative [facility] Comment: Eye specimens are not an FDA-cleared source for this testing. The performance of this assay with eye specimens has been validated in-house. GC Source Urine [facility] Chlamydia Gene Amp Negative Negative [facility] Comment: Eye specimens are not an FDA-cleared source for this testing. The performance of this assay with eye specimens has been validated in-house. Chlm Source Urine [facility] Urine 10/07/2022 3:52 PM EDT 10/07/2022 4:37 PM EDT Narrative Resulting Agency Comment Spec In Lab Jorge Moser MD MICROBIOLOGY - GE NERAL ORDERABLES [facility] [place] [address] * TSH (10/07/2022 3:43 PM EDT) Thyroid Stimulating Hormone 1.65 0.27 - 4.20 mcIU/mL [facility] Comment: Reference Interval (mcIU/mL): Females: ??First Trimester: 0.23-3.88 ??Second Trimester: 0.22-3.90 ??Third Trimester: 0.44-4.66 Blood 10/07/2022 3:43 PM EDT 10/07/2022 4:02 PM EDT Narrative Resulting Agency Comment Spec In Lab Tegan Dodson MD CHEMISTRY ORDERABLES Performing Organization Address [facility] Co de Phone Number [facility] [place] [address] * T4, free (10/07/2022 3:43 PM EDT) Free T4 1.21 0.93 - 1.70 ng/dL [facility] Comment: Reference Interval (ng/dL): Females: ??First Trimester: 0.97-1.68 ??Second Trimester: 0.77-1.51 ??Third Trimester: 0.77-1.49 Blood 10/07/2022 3:43 PM EDT 10/07/2022 4:02 PM EDT Narrative Resulting Agency Comment Spec In Lab Tegan Dodson MD CHEMISTRY ORDERABLES Performing Organization Address City/[facility]/ZIP Co de Phone Number [facility] [place] [address] * HSV 1 and 2 IgG Antibodies (10/07/2022 3:43 PM EDT) HSV Type 1 Ab, IgG Negative Negative [facility] HSV Type 2 Ab, IgG Negative Negative [facility] Blood 10/07/2022 3:43 PM EDT 10/08/2022 7:08 AM EDT Narrative Resulting Agency Comment Spec In Lab Earle Cade MD IMMUNOLOGY ORDERABL ES Performing Organization Address City/State/[facility] Co de Phone Number [facility] [place] [place] [address] documented in this encounter Visit Diagnoses Diagnosis Vulvar lesion Other specified noninflammatory disorder of vulva and perineum Unprotected sex Problems related to high-risk sexual behavior Elevated TSH Other abnormal blood chemistry documented in this encounter Care Teams Account Classification Clerk Relationship Specialty Start Date End Date Alfreda Molina MD PCP - General Pediatrics 11/30/20 12/04/22 documented as of this encounter
--- OUTSIDE RECORDS SUMMARY | 2024-07-29 00:24 | XMS_ITS | Encounter Summary ---
Author Organization Formerly [facility] [place] [address] Care Team Providers Care Slide Fastener Chain Assembler Name Role Phone Edilma Cornejo MD Primary Care Provider [phone] Encounter Details Date Type Department Care Team (Latest Contact Info) Description 03/11/2023 2:45 PM EDT Laboratory Appointment Laboratory at [facility] [place] [address] Routine screening for STI (sexually transmitted infection) [...] Description 08/08/2024 9:00 AM EST Appointment [address] [phone] Umu Saucedo RN 08/15/2024 10:45 AM EST TH Visit (TeleHealth) [place]stetrics [place] [address] Dara Kelley MD [facility] OBSTETRICS [place] [address] 11/25/2024 Hospital Encounter [place] [phone] Dara Gonzalez MD [facility] OBSTETRICS [place] [address] 07/12/2025 1:40 PM EST Office Visit Ophthalmology at [place] [phone] Bina Agrawal OD [facility] [address] documented as of this encounter Procedures Procedure Name Priority Date/Time Associated Diagnosis Comments GC/CHLAMYDIA Routine 03/11/2023 2:42 PM EDT Routine screening for STI (sexually transmitted infection) HSV 1 AND 2 IGG ANTIBODIES Routine 03/11/2023 2:42 PM EDT Routine screening for STI (sexually transmitted infection) HEPATITIS C ANTIBODY Routine 03/11/2023 2:42 PM EDT Routine screening for STI (sexually transmitted infection) HIV SCREEN, 4TH GENERATION ([facility] [place]/CGP/APD/NL)P ERFORMABLE Routine 03/11/2023 2:42 PM EDT Routine screening for STI (sexually transmitted infection) HEPATITIS B SURFACE ANTIBODY Routine 03/11/2023 2:42 PM EDT Routine screening for STI (sexually transmitted infection) documented in this encounter Results * HIV Screen, 4th Generation ([facility] [place]/CGP/APD/NLH) (03/11/2023 2:42 PM EDT) HIV Ab/Ag Screen Negative Negative [facility] Comment: This 4th Generation HIV test [...] HIV Comment Low Risk of HIV Infection [facility] Blood 03/11/2023 2:42 PM EDT 03/11/2023 6:22 PM EDT Narrative Resulting Agency Comment Spec In Lab Earle Cade MD CHEMISTRY ORDERABLE S Performing Organization Address City/[facility]/ZIP Co de Phone Number [facility] [place] [address] * Hepatitis B Surface Antibody (03/11/2023 2:42 PM EDT) Hepatitis B Surface Antibody, Quantitative <3.5 IU/L [facility] Comment: HepB Surface Ab Quant: Unvaccinated: < 8.5 IU/L Vaccinated: >= 11.5 IU/L Hepatitis B Surface Antibody Negative [facility] Comment: Patient is presumed to be not vaccinated or immune to HBV infection. Expected Results: Vaccinated: Positive Unvaccinated: Negative Blood 03/11/2023 2:42 PM EDT 03/11/2023 6:22 PM EDT Narrative Resulting Agency Comment Spec In Lab Earle Cade MD CHEMISTRY ORDERABLE S Performing Organization Address City/[facility]/ZIP Co de Phone Number [facility] [place] [address] * Hepatitis C Antibody (03/11/2023 2:42 PM EDT) Hepatitis C Antibody Negative Negative [facility] Blood 03/11/2023 2:42 PM EDT 03/11/2023 6:22 PM EDT Narrative Resulting Agency Comment Spec In Lab Earle Cade MD CHEMISTRY ORDERABLE S [facility] [place] [address] * HSV 1 and 2 IgG Antibodies (03/11/2023 2:42 PM EDT) HSV Type 1 Ab, IgG Negative Negative [facility] HSV Type 2 Ab, IgG Negative Negative [facility] Blood 03/11/2023 2:42 PM EDT 03/12/2023 7:19 AM EDT Narrative Resulting Agency Comment Spec In Lab Earle Cade MD IMMUNOLOGY ORDERABL ES Performing Organization Address [facility]/ZIP Co de Phone Number [facility] [place] [address] * GC/Chlamydia Urine (03/11/2023 2:42 PM EDT) GC Gene Amp Negative Negative [facility] Comment: Eye specimens are not an FDA-cleared source for this testing. The performance of this assay with eye specimens has been validated in-house. GC Source [facility] Chlamydia Gene Amp Negative Negative [facility] Comment: Eye specimens are not an FDA-cleared source for this testing. The performance of this assay with eye specimens has been validated in-house. Chlm Source Urine [facility] Urine 03/11/2023 2:42 PM EDT 03/11/2023 5:40 PM EDT Narrative Resulting Agency Comment Spec In Lab Earle Cade MD MICROBIOLOGY - GENE RAL ORDERABLES Performing Organization Address [facility]/[place] [address] documented in this encounter Visit Diagnoses Diagnosis Routine screening for STI (sexually transmitted infection) Screening examination for venereal disease documented in this encounter Care Teams Slide Fastener Chain Assembler Relationship Specialty Start Date End Date Edilma Cornejo MD [facility] [place] [address] PCP - General 12/05/22 documented as of this encounter
--- OUTSIDE RECORDS SUMMARY | 2024-07-29 00:24 | XMS_ITS | Encounter Summary ---
Author Organization [facility] [place] [address] Care Team Providers Care Sales Apprentice Name Role Phone Alfreda Molina MD Primary Care Provider Vicky vailable Encounter Details Date Type Department Care Team (Latest Contact Info) Description 04/22/2022 3:05 PM EST Laboratory Appointment Lab [address] [place] [phone] Erythema nodosum; Encounter for routine adult health examination without abnormal findings Social History Tobacco Use Types Packs/Day Years [...] Info) Description 08/08/2024 9:00 AM EST Appointment [address] [phone] Umu Saucedo RN 08/15/2024 10:45 AM EST TH Visit (TeleHealth) Obstetrics [place] [phone] Dara Kelley MD [facility] OBSTETRICS AND [place] [address] 11/25/2024 Hospital [place] [address] Dara Gonzalez MD [facility] OBSTETRICS AND [place] [address] 07/12/2025 1:40 PM EST Office Visit Ophthalmology at [place] [phone] Bina Agrawal OD [facility] [place] [address] documented as of this encounter Procedures Procedure Name Priority Date/Time Associated Diagnosis Comments HC C-REACTIVE PROTEIN Routine 04/22/2022 3:22 PM EST Erythema nodosum HEMOGRAM Routine 04/22/2022 3:22 PM EST Erythema nodosum DIFFERENTIAL, AUTOMATED Routine 04/22/2022 3:22 PM EST Erythema nodosum HC HCV QUANTIFICATION Routine 04/22/2022 3:22 PM EST Encounter for routine adult health examination without abnormal findings HC ESR-SEDIMENTATION RATE, BLOOD Routine 04/22/2022 3:22 PM EST Erythema nodosum HC CBC,PLT & AUTO DIFF Routine 3:22 PM EST Erythema nodosum HC PCH STRETOCOCCAL ANTIBIODIES Routine 04/22/2022 3:22 PM EST Erythema nodosum HC THYROID STIMULATING HORMONE, SERUM Routine 04/22/2022 3:22 PM EST Erythema nodosum HC VENIPUNCTURE Routine 04/22/2022 3:22 PM EST Erythema nodosum HC HEMOGLOBIN A1C Routine 04/22/2022 3:2 2 PM EST Encounter for routine adult health examination without abnormal findings LIPID PANEL (REFLEX DIRECT LDL) Routine 04/22/2022 3:22 PM EST Encounter for routine adult health examination without abnormal findings documented in this encounter Results * (ABNORMAL) Differential, Automated (04/22/2022 3:22 PM EST) Neutrophil % 52.9 % [facility] Neutrophil Absolute 5.28 1.70 - 6.10 x10(3)/mc L [facility] Lymph % 34.9 % [facility] Lymphocytes Abs 3.5(H) 0.9 - 3.2 x10(3)/mc L [facility] Monocyte % 9.6 % [facility] Monocyte Abs 1.0(H) 0.3 - 0.9 x10(3)/mc L [facility] Eos % 1.5 % [facility] Eosinophils Abs 0.2 0.0 - 0.4 x10(3)/mc L [facility] Basophil % 0.6 % [facility] Baso Absolute 0.1 0.0 - 0.1 x10(3)/mc L [facility] Immature Gran % 0.50 % [facility] Comment: Immature granulocytes(IG's)percentage and absolute count will include metamyelocytes, myelocytes, and promyelocytes. Blood smears from CBCs yielding IG's will be scanned manually for concordance. If this scan disagrees with the automated IG or if promyelocytes are noted, a manual differential will be performed. Immature Gran Absolute 0.05(H) 0.00 - 0.04 x10(3)/mc L [facility] Blood 04/22/2022 3:22 PM EST 04/22/2022 3:29 PM EST Narrative Resulting Agency Comment Spec In Lab Alfreda Molina MD HEMATOLOGY ORDERAB LES [facility] [place] [address] * (ABNORMAL) Hemogram (04/22/2022 3:22 PM EST) White Blood Cell 10.0(H) 4.0 - 9.5 x10(3)/mc L [facility] Red Blood Cell 4.97 4.00 - 5.21 x10(6)/mc L [facility] Hemoglobin 13.7 11.7 - 15.5 g/dL [facility] Hematocrit 42.1 35.7 - 45.8 % [facility] Mean Cell Volume 84.7 82.6 - 94.4 fL [facility] Mean Cell Hemoglobin 27.6 27.1 - 32.0 pg [facility] Mean Cell Hemoglobin Concentration 32.5 31.7 - 35.0 g/dL [facility] Platelet 476(H) 145 - 357 x10(3)/mc L [facility] RDW Standard Deviation 38.9 37.0 - 46.0 [facility] RDW coefficient of variation 12.7 11.5 - 14.1 % [facility] Mean Platelet Volume 8.7 7.6 - 12.9 fL [facility] NRBC% auto 0.0 % [facility] NRBC Absolute 0.000 0.000 - 0.000 x10(3)/mc L [facility] Blood 04/22/2022 3:22 PM EST 04/22/2022 3:29 PM EST Narrative Resulting Agency Comment Spec In Lab Alfreda Molina MD HEMATOLOGY ORDERAB LES [facility] [place] [address] * Lipid Panel (Reflex Direct LDL) (04/22/2022 3:22 PM EST) Cholesterol, Total 276 mg/dL Raheel [facility] Comment: Lower Risk: <200 mg/dL Average Risk: 200-239 mg/dL Higher Risk: >tx=315 mg/dL Triglyceride 178 mg/dL [facility] Comment: Average Risk/Lower Risk: <150 mg/dL Borderline High Risk: 150-199 mg/dL High Risk: 200-499 mg/dL Very High Risk: >ek=164 mg/dL HDL Cholesterol 51 mg/dL [facility] Comment: Males: ?? Higher Risk: <40 mg/dL Females: ?? Higher Risk: <50 mg/dL LDL Cholesterol 189 mg/dL [facility] Comment: Lowest Risk: <100 mg/dL Lower Risk: 100-129 mg/dL Borderline High Risk: 130-159 mg/dL High Risk: 160-189 mg/dL Very High Risk: >ip=649 mg/dL Cholesterol/HDL Ratio 5.4 ratio [facility] Lipid Interpretation See Note [facility] Comment: Lipid management should be guided by a patient? s ASCVD risk, goals and preferences. ACC/AHA Guidelines recommend high intensity statin if clinical ASCVD or LDL greater than or equal to 190 mg/dL. http://Digital Assent.com/UNO-VNK-Hrikdkfip Adults aged 40-75 with LDL 70-189 mg/dL should have their 10 year ASCVD risk estimated with the ACC/AHA ASCVD risk cruise director http://tools.acc.org/XYCWM-Nemd-Garzkpowv/ Statin should be discussed if risk greater [...] critical component of ASCVD risk reduction. Blood 04/22/2022 3:22 PM EST 04/22/2022 3:29 PM EST Narrative Resulting Agency Comment Spec In Lab Samantha Whalen MD CHEMISTRY ORDERABLE S Performing Organization Address [facility]/ZIP Co de Phone Number [facility] [place] [address] * Hepatitis C RNA, quantitative, PCR (04/22/2022 3:22 PM EST) Pathologist [facility] HCV Viral Load <12 IU/mL [facility] HCV Viral Load Result: <12 IU/mL (Target Not Detected) Indication for Study: Hepatitis C Infection Analysis: The Dockery Alinity m HCV assay is an in vitro reverse transcriptase polymerase chain reaction (RT-PCR)for the quantification of hepatitis C viral (HCV) RNA in human serum or plasma (EDTA) from HCV-infected individuals. Sample: plasma/serum Method: Dockery Alinity m HCV Assay Linear Range: 12 IU/mL - 100,000,000IU/mL Note: The Dockery Alinity HCV Assay has been approved by the U.S. Food and Drug Administration. [facility] Comment: [VERIFIED DATE]04.23.22 Verified By:Nanette Vernon (Electronic Signature) Blood 04/22/2022 3:22 PM EST 04/23/2022 7:13 AM EST Narrative Resulting Agency Comment Spec In Lab Samantha Whalen MD MOLECULAR ORDERABLE S Performing Organization Address City/[facility] Co de Phone Number [facility] [place] [address] * Hemoglobin A1c (04/22/2022 3:22 PM EST) [facility] Hemoglobin A1c 4.9 4.3 - 5.6 % [facility] Comment: Reference Range: 4.3 - 5.6% 5.7 - 6.4% - Increased Risk of Developing Diabetes Mellitus >= 6.5% - Consistent with diagnosis of Diabetes Mellitus In the absence of hyperglycemia (i.e. plasma glucose > 200 mg/dL) or classic symptoms of hyperglycemia a repeat measurement of HbA1c should be performed on a separate sample to confirm the diagnosis. Diagnosis and Classification of Diabetes Mellitus, Diabetes Care 2013; 36: Suppl. 1, Y57-38 Estimated Average Glucose 94 mg/dL [facility] Comment: eAG equivalents for HbA1c percentages: HbA1c(%) ?eAG(mg/dL) 6.0 ?126 6.5 ?140 7.0 ?154 7.5 ?169 8.0 ?183 8.5 ?197 9.0 ?212 9.5 ?226 10.0 ? 240 Limitations: The eAG calculation has not been validated on women, individuals below 18 years old and above 70 years old, and individuals with hemoglobinopathies. Additional resources are available on the ADA website. Armando DE GUZMAN, Sweetie J, Sabino R, et al. ??Translating the A1C assay into estimated average glucose values. ??Diabetes Care 2008:31(8):0360-9861. Blood 04/22/2022 3:22 PM EST 04/22/2022 3:29 PM EST Narrative Resulting Agency Comment Spec In Lab Samantha Whalen MD CHEMISTRY ORDERABLE S [facility] [place] [address] * (ABNORMAL) Sedimentation rate (04/22/2022 3:22 PM EST) Sedimentation Rate Automated 40(H) 2 - 37 mm/hr [facility] Comment: Effective May 25, 2019 new capillary photometric technology has resulted in a change in reference ranges. It is recommended that each ESR result be reviewed with its own age appropriate reference range. Blood 04/22/2022 3:22 PM EST 04/22/2022 3:29 PM EST Narrative Resulting Agency Comment Spec In Lab Samantha Whalen MD HEMATOLOGY ORDERABL ES Performing Organization Address City/[facility]/ZIP Co de Phone Number [facility] [place] [address] * CRP, acute inflammation (04/22/2022 3:22 PM EST) Pathologist [facility] C-Reactive Protein <3.0 <=4.9 mg/L [facility] Blood 04/22/2022 3:22 PM EST 04/22/2022 3:29 PM EST Narrative Resulting Agency Comment Spec In Lab Samantha Whalen MD CHEMISTRY ORDERABLE S Performing Organization Address [facility] Co de Phone Number [facility] [place] [address] * Streptococcal Antibody Panel (04/22/2022 3:22 PM EST) Pathologist [facility] Aso Titer (OCTOBER) 129 0 - 530 IU/mL [facility] Comment: Test Performed by: [facility] [place] [address] Relocation Specialist: Sundar Bradley M.D. Ph.D.; CLIA# [id number] Dnase B Ab (OCTOBER) 150 0 - 300 unit/mL [facility] Comment: Test Performed by: [facility] [place] [address] Relocation Specialist: Sundar Bradley M.D. Ph.D.; CLIA# [id number] Blood 04/22/2022 3:22 PM EST 04/23/2022 8:58 AM EST Narrative Resulting Agency Comment Spec In Lab Samantha Whalen MD LAB SEND OUT ORDERA BLES Performing Organization Address City/[facility]/ZIP Co de Phone Number [facility] [place] [address] * TSH (04/22/2022 3:22 PM EST) Thyroid Stimulating Hormone 3.33 0.27 - 4.20 mcIU/mL [facility] Comment: Reference Interval (mcIU/mL): Females: ??First Trimester: 0.23-3.88 ??Second Trimester: 0.22-3.90 ??Third Trimester: 0.44-4.66 Blood 04/22/2022 3:22 PM EST 04/22/2022 3:29 PM EST Narrative Resulting Agency Comment Spec In Lab Samantha Whalen MD CHEMISTRY ORDERABLE S Performing Organization Address [facility] de Phone Number [facility] [place] [address] * T4, free (04/22/2022 3:22 PM EST) Free T4 1.16 0.93 - 1.70 ng/dL [facility] Comment: Reference Interval (ng/dL): Females: ??First Trimester: 0.97-1.68 ??Second Trimester: 0.77-1.51 ??Third Trimester: 0.77-1.49 Blood 04/22/2022 3:22 PM EST 04/22/2022 3:29 PM EST Narrative Resulting Agency Comment Spec In Lab Samantha Whalen MD CHEMISTRY ORDERABLE S Performing Organization Address [facility] Co de Phone Number [facility] [place] [address] documented in this encounter Visit Diagnoses Diagnosis Erythema nodosum Encounter for routine adult health examination without abnormal findings documented in this encounter Care Teams Sales Apprentice Relationship Specialty Start Date End Date Alfreda Molina MD PCP - General Pediatrics 11/30/20 12/04/22 documented as of this encounter
--- OUTSIDE RECORDS SUMMARY | 2024-07-29 00:24 | XMS_ITS | Encounter Summary ---
Author Organization [facility] Address [facility] [place] [address] Care Team Providers Care Orthopedic Specialist Name Role Phone Alfreda Molina MD Primary Care Provider Vicky vailable Encounter Details Date Type Department Care Team (Late st Contact Info) Description 04/25/2022 E-Consult Pediatric Gastroenterology at [place] [address] [place] [phone] Niharika Hanson MD [address] [facility] PEDIATRIC [place] [address] Erythema nodosum; Elevated sed rate Social History Tobacco Use Types Packs/Day Years [...] as of this encounter Miscellaneous Notes * E-Consult - Niharika Nava MD - 04/25/2022 3:22 PM EST Select F2 to choose the appropriate response: Proceed with eConsult 1. Restatement of the question: 17-year-old with erythema nodosum and elevated ESR ?IBD 2. Recommendation(s): I agree that IBD is high on the differential, even with the lack of colitis symptoms. You can obtain a fecal calprotectin prior to GI visit, but I think a GI referral is warranted so that we can discuss additional testing including endoscopy and small bowel imaging This eConsult is focused on the specific clinical question(s) asked by the referring clinician, is based on the clinical data available to me, the consulting physician, at the time of the request, and is furnished without benefit of a comprehensive evaluation or physical examination of the patient by me. The guidance set forth in the eConsult note will need to be interpreted in light of any clinical issues not known to me or any changes in patient status that I may not be aware of at the time of filing this eConsult. If further consultation is necessary, an in-person visit with me or another member of our group is an option. documented in this encounter Plan of Treatment Upcoming Encounters Date Type Department Care Team (Late st Contact Info) Description 08/08/2024 9:00 AM EST Appointment [address] [phone] Umu Saucedo RN 08/15/2024 10:45 AM EST TH Visit (TeleHealth) Obstetrics [place] [phone] Dara Kelley MD [facility] [place] [address] 11/25/2024 [place] [phone] Dara Gonzalez MD [facility] [place] [address] 07/12/2025 1:40 PM EST Office Visit [place] [phone] Bina Agrawal, JONELLE [facility] [place] [address] documented as of this encounter Visit Diagnoses Diagnosis Erythema nodosum Elevated sed rate Elevated sedimentation rate documented in this encounter Care Teams Orthopedic Specialist Relationship Specialty Start Date End Date Alfreda Molina MD PCP - General Pediatrics 11/30/20 12/04/22 documented as of this encounter
--- OUTSIDE RECORDS SUMMARY | 2024-07-29 00:24 | XMS_ITS | Encounter Summary ---
Author Organization Formerly [facility] Address [facility] [place] [address] Care Team Providers Care Material Handling Warehouse Supervisor Name Role Phone Edilma Cornejo MD Primary Care Provider Encounter Details Date Type Department Care Team (Late st Contact Info) Description 05/29/2023 2:00 PM EST Office Visit Pediatrics at [address] [phone] Tangela Rodrigues MD [facility] [place] [address] Depression, unspecified depression type; Generalized anxiety disorder Social History Tobacco Use [...] Sign Reading Time Taken Comments Blood Pressure 126/70 05/29/2023 1:58 PM EST Pulse - - Temperature - - Respiratory Rate - - Oxygen Saturation - - Inhaled Oxygen Concentration - - Weight 55.3 kg (122 lb) 05/29/2023 1:58 PM EST Height - - Body Mass Index 24.53 05/01/2023 1:59 PM EST documented in this encounter Progress Notes * Tangela Rodrigues MD - 05/29/2023 2:00 PM EST Assessment: Ely is a 18 yo who presents with history of anxiety and depression. PHQ-9 is 20 today and GAD7 is 13. Has started to work with [facility] behavioral health clinician though given continued significantsymptoms today without much improvement since starting sertraline about a month ago, will plan to increase dose in addition to continued counseling and close follow up. Plan: - increase sertraline to 50mg daily (prescription sent to [facility]) - follow up 1 month for medication check, may need to titrate medication further - continue to work with embedded mental health provider Return to Clinic for: follow up in one month or sooner for worsening Chief Complaint: Behavioral health follow up History of Present Illness: Ely presents for a behavioral health follow up. - states she is doing pretty good - lost medications so has not been taking them for a couple days (she thinks the medications are inher work bag but she has not looked for them yet) - she is unsure if the medication has been helpful - has been meeting with Matt which has been helpful - has met with Matt twice (talked abut how to improve her self view) - no stomach pain - today she says her anxiety and depression is not as high as sometimes - no SI or HI today - her sleep has not changed - she either can't sleep or she wakes up early and can not go back to sleep - she really enjoys her job and things are going well with her job - works overnight on the weekends - appetite not good - eating once a day - younger sister recently moved in - things are going really well as she has been able to hang out with her and have also gone ice skating - is in a new relationship and says this relationship has been going well - GAD7 is 13, PHQ-9 20 today Review of Systems: see HPI Vital Signs: BP 126/70 Wt 55.3 kg (122 lb) LMP 04/20/2023 (Exact Date) BMI 24.53 kg/m?? PHYSICAL EXAM: General: well appearing, in NAD, pleasant HEENT: NC/AT CV: rrr, no murmurs Resp: no apparent increased WOB Abd: active bowel sounds, soft, states she has right lower quadrant tenderness with palpation of her abdomen MS: MAEW, grossly normal strength Neuro: alert, CN II-XII grossly intact Tangela Rodrigues MD PGY-2 05/29/23 * Samantha Johnson MD - 05/29/2023 2:00 PM EST The case was discussed in person at the time of the visit or immediately after the visit. The assessment and plan were formulated in discussion with me and I agree with them as documented. I have reviewed the history, physical exam, assessment and plan with the resident. Samantha Johnson MD documented in this encounter Miscellaneous Notes * Addendum Note - Samantha Johnson MD - 05/29/2023 2:00 PM ESTAddended by: SAMANTHA JOHNSON on: 06/06/2023 05:07 PM Modules accepted: Level of Service documented in this encounter Plan of Treatment Upcoming Encounters Date Type Department Care Team (Late st Contact Info) Description 08/08/2024 9:00 AM EST Appointment [address] [phone] Umu Saucedo, RN 08/15/2024 10:45 AM EST TH Visit (TeleHealth) Obstetrics [place] [phone] Dara Kelley MD [facility]STET[facility] [place] [address] 11/25/2024 [place] [address] Dara Gonzalez MD [facility]STET[facility] [place] [address] 07/12/2025 1:40 PM EST Office Visit Ophthalmology at [place] [address] Bina Agrawal, JONELLE [facility] [place] [address] documented as of this encounter Visit Diagnoses Diagnosis Depression, unspecified depression type Generalized anxiety disorder documented in this encounter Care Teams Material Handling Warehouse Supervisor Relationship Specialty Start Date End Date Edilma Cornejo MD [facility] [place] [address] PCP - General 12/05/22 documented as of this encounter
--- OUTSIDE RECORDS SUMMARY | 2024-07-29 00:24 | XMS_ITS | Encounter Summary ---
Author Organization [facility] Address [facility] [place] [address] Care Team Providers Care Insurance Loss Adjuster Name Role Phone Alfreda Molina MD Primary Care Provider Vicky vailable Encounter Details Date Type Department Care Team (Latest Contact Info) Description 11/24/2022 Travel Social History Tobacco Use Types Packs/Day [...] Description 08/08/2024 9:00 AM EST Appointment [address] [phone] Umu Saucedo RN 08/15/2024 10:45 AM EST TH Visit (TeleHealth) Obstetrics [place] [address] Dara Kelley MD [facility] [address] [place] [address] 11/25/2024 Hospital Encounter [place] [phone] Dara Gonzalez MD [facility] OBSTETRICS [place] [address] 07/12/2025 1:40 PM EST Office Visit Ophthalmology at [place] [phone] Bina Agrawal OD [facility] [place] [address] documented as of this encounter Visit Diagnoses Not on filedocumented in this encounter Care Teams Insurance Loss Adjuster Relationship Specialty Start Date End Date Alfreda Molina MD PCP - General Pediatrics 11/30/20 12/04/22 documented as of this encounter
--- OUTSIDE RECORDS SUMMARY | 2024-07-29 00:24 | XMS_ITS | Encounter Summary ---
Author Organization [facility] Address [facility] [place] [address] Care Team Providers Care Shorthand Teacher Name Role Phone Alfreda Molina MD Primary Care Provider Vicky vailable Encounter Details Date Type Department Care Team (Latest Contact Info) Description 07/08/2022 Travel Social History Tobacco Use Types Packs/Day [...] Appointment [facility] [address] [phone] Umu Saucedo RN 08/15/2024 10:45 AM EST TH Visit (TeleHealth) Obstetrics [place] [address] Dara Kelley MD [facility] DR OBSTETRICS [place] [address] 11/25/2024 Hospital [place] [phone] Dara Gonzalez MD [facility] [place] [address] 07/12/2025 1:40 PM EST Office [place] [phone] Bina Agrawal OD [facility] [address] documented as of this encounter Visit Diagnoses Not on filedocumented in this encounter Care Teams Shorthand Teacher Relationship Specialty Start Date End Date Alfreda Molina MD PCP - General Pediatrics 11/30/20 12/04/22 documented as of this encounter
--- OUTSIDE RECORDS SUMMARY | 2024-07-29 00:25 | XMS_ITS | Encounter Summary ---
Author Organization [facility] Address [facility] [place] [address] Care Team Providers Care Oncology Nurse Name Role Phone Alfreda Molina MD Primary Care Provider Vicky vailable Encounter Details Date Type Department Care Team (Latest Contact Info) Description 04/08/2022 Travel Social History Tobacco Use Types Packs/Day Years Used Date Smoking Tobacco: Never Smokeless Tobacco: Never Comments:no one smokes at [facility] Alcohol Use Standard Drinks/Week Comments No 0 [...] 08/08/2024 9:00 AM EST Appointment [facility] [address] [phone] Umu Saucedo RN 08/15/2024 10:45 AM EST TH Visit (TeleHealth) Obstetrics [place] [address] [facility] DR OBSTETRICS [place] [address] 11/25/2024 Hospital Encounter [place] [phone] [facility] OBSTETRICS [place] [address] 07/12/2025 1:40 PM EST Office Visit [place] [phone] [facility] [place] [address] documented as of this encounter Visit Diagnoses Not on filedocumented in this encounter Care Teams Oncology Nurse Relationship Specialty Start Date End Date Alfreda Molina MD PCP - General Pediatrics 11/30/20 12/04/22 documented as of this encounter
--- OUTSIDE RECORDS SUMMARY | 2024-07-29 00:25 | XMS_ITS | Encounter Summary ---
Author Organization [facility] Address [facility] [place] [address] Care Team Providers Care Needle Punch Operator Name Role Phone Alfreda Molina MD Primary Care Provider Vicky vailable Reason for Referral * E-Consultation (Routine) - Closed Specialty Diagnoses / Procedures Referred By Radha arroyo Referred To Contact Endocrinology Diagnoses Elevated TSH Procedures eConsult to Endocrinology (Primary Care Use Only) Tegan Dodson MD [facility] [address] [facility] [place] [address] Referral ID Status Reason Start Date Expiration Date Visits Re quested Visits Authorized [id number] Closed 02/19/2022 02/19/2023 1 1 Encounter Details Date Type Department Care Team (Late st Contact Info) Description 02/19/2022 Telephone Pediatrics at [facility] [address] [place] [phone] Tegan Dodson MD [facility] [place] [address] Social History Tobacco Use Types Packs/Day Years Used Date Smoking Tobacco: Never Smokeless Tobacco: Never Comments:no one smokes at [facility] Alcohol Use Standard Drinks/Week Comments No 0 (1 standard drink = 0.6 oz pur e alcohol) Sex and Gender Information Value Date Recorded Sex Assigned at Female 07/24/2023 9:35 AM EST Gender Identity Female 07/24/2023 9:35 AM EST Sexual Orientation Straight 07/24/2023 9: 35 AM EST documented as of this encounter Miscellaneous Notes * Telephone Encounter - Tegan Dodson MD - 02/19/2022 5:26 PM EDT Discussed bw, endo econsult and likelihood of need for l-tyroxine. Also discussed ER visit on 02/08 due to fever (101.6), COVID neg, and finger tips turning blue Temps persisted and then sores developed in genital area, oil gas and pipe tester rxd valtrex day(now dy #7), Banquet Chef thought HSV likely, cx and abx neg. Ely also has complaints of chest pain, intermittent, mid sternal, no palpitations, no SOB. No painin 3dys. F/u discussed if chest pain recurrent or worsening, persistent fever. documented in this encounter Plan of Treatment Upcoming Encounters Date Type Department Care Team (Late st Contact Info) Description 08/08/2024 9:00 AM EST Appointment [address] [phone] Umu Saucedo, RN 08/15/2024 10:45 AM EST TH Visit (TeleHealth) Obstetrics [place] [phone] Dara Kelley MD [facility] OBSTETRICS [place] [address] 11/25/2024 Hospital [place] [phone] Dara Gonzalez MD [facility] OBSTETRICS [place] [address] 07/12/2025 1:40 PM EST Office [place] [address] Bian Agrawal, JONELLE [facility] [place] [address] documented as of this encounter Visit Diagnoses Diagnosis Elevated TSH Other abnormal blood chemistry documented in this encounter Care Teams Needle Punch Operator Relationship Specialty Start Date End Date Alfreda Molina MD PCP - General Pediatrics 11/30/20 12/04/22 documented as of this encounter
--- OUTSIDE RECORDS SUMMARY | 2024-07-29 00:25 | XMS_ITS | Encounter Summary ---
Author Organization [facility] Address [facility] [place] [address] Care Team Providers Care Data Warehouse Administrator Name Role Phone Alfreda Molina MD Primary Care Provider Vicky vailable Encounter Details Date Type Department Care Team (Latest Contact Info) Description 04/22/2022 Travel Social History Tobacco Use Types Packs/Day [...] 08/08/2024 9:00 AM EST Appointment [facility] [address] [place] [phone] Umu Saucedo RN 08/15/2024 10:45 AM EST TH Visit (TeleHealth) Obstetrics [place] [address] Dara Kelley MD [facility] DR OBSTET[place] [address] 11/25/2024 Hospital [place] [phone] Dara Gonzalez MD [facility] OBSTETRICS [place] [address] 07/12/2025 1:40 PM EST Office [place] [phone] Bina Agrawal OD [facility] [place] [address] documented as of this encounter Visit Diagnoses Not on filedocumented in this encounter Care Teams Data Warehouse Administrator Relationship Specialty Start Date End Date Alfreda Molina MD PCP - General Pediatrics 11/30/20 12/04/22 documented as of this encounter
--- OUTSIDE RECORDS SUMMARY | 2024-07-29 00:25 | XMS_ITS | Encounter Summary ---
Author Organization [facility] Address [facility] [place] [address] Care Team Providers Care Contact Printer Dry Film Name Role Phone Alfreda Molina MD Primary Care Provider Ivcky vailable Reason for Visit * Reason Comments Gynecologic Exam followup up from ED visit on 06/17/21 * Consultation (Routine) - Closed Specialty Diagnoses / Procedures Referred By Contac t Referred To Contact Obstetrics and Gynecology Diagnoses Vaginal bleeding Ayesha Garcia MD [facility] DR [place] [address] [phone] Referral ID Status Reason Start Date Expiration Date V isits Requested Visits Authorized [id number] Closed Consult, Test & Treat 06/17/2021 06/17/2022 1 1 Encounter Details Date Type Department Care Team (Latest Contact Info) Description 07/08/2021 1:30 PM EST Office Visit [facility] at [address] [phone] Edilma Patel, PA [address] [facility] OBSTETRICS [place] [address] Irregular menses; Routine screening for STI (sexually transmitted infection); Encounter for initial prescription of transdermal patch hormonal contraceptive device Social History Tobacco Use Types Packs/Day Years Used Date Smoking Tobacco: Never Smokeless Tobacco: Never Comments:no one smokes at [facility] Alcohol Use Standard Drinks/Week Comments No 0 (1 standard drink = 0.6 oz pur e alcohol) Sex and Gender Information Value Date Recorded Sex Assigned at Female 07/24/2023 9:35 AM EST Gender Identity Female 07/24/2023 9:35 AM EST Sexual Orientation Straight 07/24/2023 9: 35 AM EST documented as of this encounter Last Filed Vital Signs Vital Sign Reading Time Taken Comments Blood Pressure 124/80 07/08/2021 1:27 PM EST Pulse 80 07/08/2021 1:27 PM EST Temperature 37 ??C (98.6 ??F) 07/08/2021 1:27 PM EST Respiratory Rate 14 07/08/2021 1:27 PM EST Oxygen Saturation 99% 07/08/2021 1:27 PM EST Inhaled Oxygen Concentration - - Weight 56.2 kg (123 lb 14.4 oz) 07/08/2021 1:27 PM EST Height 150.5 cm (4' 11.25) 07/08/2021 1:[address] Body Mass Index 24.81 07/08/2021 1:27 PM EST Body Mass Index Percentile 82.19% 07/08/2021 1:2 7 PM EST Growth Chart: [facility] (Girls, 2- 20 Years) documented in this encounter Progress Notes * Edilma Patel, ABIGAIL - 07/08/2021 1:30 PM EST Chief Complaint: F/u ED visit on 06/17/2021 Subjective: HPI: Ely Mahmood is a 16 y.o. No obstetric history on file. female presenting to the [facility] with the following concerns: Episode of heavy vaginal bleeding. Ely was seen in the ED on 06/17/2021 for vaginal bleeding that started on 06/14 and was heavier thanher normal periods, saturating a pad 2-3 times a day (usually only has to change once a day). She had done 3 at home tests, on 06/12, 06/13, 06/14, all positive, but getting more faint. Herbleeding stopped on 06/18, started new pill pack but has since stopped - was using OCPs, 20mcg estrogen. Admits to missing pills sometimes. Prior to this episode of bleeding, had period starting 06/02, was a normal in flow and duration. Denies dysuria, abnormal discharge, pelvic pain Audit Analyst Hx: Menarche 11 or 12, periods were irregular, cycle ranging from 3-8 weeks, periods lasting 7 days Started on OCPs for cycle control, switched to Depo-Provera which she used for 6-9 mos, then had Nexplanon placed sometime in early 2020. In December 2020 was started on OCPs for BTB with Nexplanon then had Nexplanon removed in March 2021 and relied on OCPs for contraception until this month. No hx of STI No operations intelligence superintendent surgeries ROS: Review of Systems Pertinent Past medical and surgical history: Past Medical History: Diagnosis Date ??? Acne vulgaris 10/26/2019 ??? Asthma asthma as baby ??? Bronchopulmonary dysplasia ??? Chronic otitis media ??? Depression 10/05/2018 ??? Developmental delay ??? infant Ex-29 week ??? Speech delay Past Surgical History: Procedure [...] to Visit Medication Sig Dispense Refill ??? predniSONE (Deltasone) 20 mg Tablet ??? albuterol 90 mcg/actuation HFA Aerosol Inhaler Inhale 2 puffs into the lungs every 4 hours as needed for Wheezing. Use with spacer 1 Inhaler 5 ??? cholecalciferol, Vitamin D3, 10 mcg (400 unit) Capsule Take 2 capsules by mouth daily. (Patientnot taking: Reported on 07/08/2021) 80 capsule 0 ??? Salicylic Acid 2 % Lotion Apply thin layer daily to acne on face. (Patient not taking: Reportedon 04/10/2021) 118 mL 0 ??? [DISCONTINUED] etonogestrel (NEXPLANON) 68 mg Implant 1 each by Subdermal route Continuous (Device). Expected removal date 10/29/21 (Patient not taking: Reported on 05/15/2021) 1 each 0 ??? [facility] Spacer ??? calcium carbonate (TUMS) 200 mg calcium (500 mg) Tablet, Chewable Take 1 tablet by mouth daily. No current facility-administered medications on file prior to visit. Allergies Allergen Reactions ??? Band-Aid [Adhesive Bandage] Rash Fabric band-aids Objective: VS: BP 124/80 Pulse 80 Temp 37 ??C (98.6 ??F) Resp 14 Ht (!) 150.5 cm (4' 11.25) Wt 56.2kg (123 lb 14.4 oz) LMP 06/02/2021 SpO2 99% BMI 24.81 kg/m?? Physical Exam Constitutional: Appearance: Normal appearance. She is normal weight. Pulmonary: Effort: Pulmonary effort is normal. Neurological: Mental Status: She is alert. Psychiatric: Mood and Affect: Mood normal. Behavior: Behavior normal. UPT negative Assessment and Plan: Ely was seen today for gynecologic exam. Diagnoses and all orders for this visit: Irregular menses - POCT urine Routine screening for STI (sexually transmitted infection) - GC/[place]lam[place]) Urine Encounter for initial prescription of transdermal patch hormonal contraceptive device - norelgestrom-ethinyl estradiol (ORTHO EVRA) 150-35 mcg/24 hr Patch Weekly; Change 1 patch on the skin once a week. Ely is a 16 y.o. female with: 1) irregular menses - 1 episode of heavy intermenstrual bleeding likely anovulatory bleeding due to missed pills - possible SAB but less likely with Beta HCG <1 on day 3 of bleeding Urine test negative today. Her 1 episode of heavy bleeding likely anovulatory. As this was her first episode of heavy bleeding and resolved without treatment, can monitor and evaluate further if it reoccurs. We reviewed options for control, including oral contraceptive pills, patch,NuvaRing, condoms, and hormonal and nonhormonal IUDs. She would like to try the patch, orders placed. Also discussed STI screening, orders placed for GC/Chlamydia today. FOLLOW UP: Return in about 1 year (around 07/08/2022) for annual exam and BC renewal. ABIGAIL Correa 07/08/2021 documented in this encounter Plan of Treatment Upcoming Encounters Date Type Department Care Team (Late st Contact Info) Description 08/08/2024 9:00 AM EST Appointment [address] [phone] Umu Saucedo, RN 08/15/2024 10:45 AM EST TH Visit (TeleHealth) Obstetrics [place] [address] Dara Kelley MD [facility] DR OBST[place] [address] 11/25/2024 Hospital [place] [phone] Dara Gonzalez MD [facility] DR [place]ST[place] [address] 07/12/2025 1:40 PM EST Office Visit Ophthalmology at [place] [phone] Bina Agrawal OD [facility] [place] [address] documented as of this encounter Procedures Procedure Name Priority Date/Time Associated Diagnosis Comments HC GC GENE AMP Routine 07/08/2021 5:27 PM EST Routine screening for STI (sexually transmitted infection) POCT URINE Routine 07/08/2021 2:12 PM EST Irregular menses documented in this encounter Results * GC/Chlamydia ([facility]D/[facility]) Urine (07/08/2021 5:27 PM EST) Pathologist [facility] GC Gene Amp Negative Negative [facility] Comment: The only FDA approved specimen types for this assay are cervical, vaginal, urethral and urine. Non-FDA approved sources are eye, throat and rectal and have been internally validated. GC Source Urine [facility] Chlamydia Gene Amp Negative Negative [facility] Comment: The only FDA approved specimen types for this assay are cervical, vaginal, urethral and urine. Non-FDA approved sources are eye, throat and rectal and have been internally validated. Chlm Source Urine [facility] Urine 07/08/2021 5:27 PM EST 07/08/2021 10:20 PM EST Narrative Resulting Agency Comment Spec In Lab Earle Cade MD MICROBIOLOGY - GENE RAL ORDERABLES [facility] [place] [address] * POCT urine (07/08/2021 2:12 PM EST) Pathologist [facility] POC Urine HCG Negative Negative - Negative POC Control Internal Controls Acceptable 07/08/2021 2:12 PM EST Earle Cade MD POINT OF CARE TEST ORDERABLES documented in this encounter Visit Diagnoses Diagnosis Irregular menses Irregular menstrual cycle Routine screening for STI (sexually transmitted infection) Screening examination for venereal disease Encounter for initial prescription of transdermal patch hormonal contraceptive device documented in this encounter Care Teams Contact Printer Dry Film Relationship Specialty Start Date End Date Alfreda Molina MD PCP - General Pediatrics 11/30/20 12/04/22 documented as of this encounter
--- OUTSIDE RECORDS SUMMARY | 2024-07-29 00:25 | XMS_ITS | Encounter Summary ---
Author Organization [facility] Address [facility] [place] [address] Care Team Providers Care Biomass Technician Name Role Phone Alfreda Molina MD Primary Care Provider Vicky vailable Encounter Details Date Type Department Care Team (Late st Contact Info) Description 02/20/2022 Telephone Pediatrics at [facility] [address] [place] [phone] [facility] [address] [place] [address] Social History Tobacco Use Types Packs/Day Years Used Date Smoking Tobacco: Never Smokeless Tobacco: Never Comments:no one smokes at [facility] Alcohol Use Standard Drinks/Week Comments No 0 (1 standard drink = 0.6 oz pur e alcohol) Sex and Gender Information Value Date Recorded Sex Assigned at Female 07/24/2023 9:35 AM EST Gender Identity Female 07/24/2023 9:35 AM EST Sexual Orientation Straight 07/24/2023 9: 35 AM EST documented as of this encounter Miscellaneous Notes * Telephone Encounter - Tegan Dodsno MD - 02/20/2022 12:26 PM EDT Spoke with Ely, aware of the rec to recheck TSH and hold treatment until TSH >10. We will recheck levels in 6m documented in this encounter Plan of Treatment Upcoming Encounters Date Type Department Care Team (Late st Contact Info) Description 08/08/2024 9:00 AM EST Appointment [address] [phone] Umu Saucedo RN 08/15/2024 10:45 AM EST TH Visit (TeleHealth) Obstetrics and Gynecology at [place] [phone] [facility] OBSTET[place] [address] 11/25/2024 Hospital [place] [phone] [facility] OBSTETRICS [place] [address] 07/12/2025 1:40 PM EST Office Visit Ophthalmology at [place] [phone] [facility] [place] [address] documented as of this encounter Results * T4, free (10/07/2022 3:43 PM EDT) Free T4 1.21 0.93 - 1.70 ng/dL [facility] Comment: Reference Interval (ng/dL): Females: ??First Trimester: 0.97-1.68 ??Second Trimester: 0.77-1.51 ??Third Trimester: 0.77-1.49 Blood 10/07/2022 3:43 PM EDT 10/07/2022 4:02 PM EDT Narrative Resulting Agency Comment Spec In Lab Tegan Dodson MD CHEMISTRY ORDERABLES Performing Organization Address City/[facility] Co de Phone Number [facility] [place] [address] * TSH (10/07/2022 3:43 PM EDT) Thyroid Stimulating Hormone 1.65 0.27 - 4.20 mcIU/mL [facility] Comment: Reference Interval (mcIU/mL): Females: ??First Trimester: 0.23-3.88 ??Second Trimester: 0.22-3.90 ??Third Trimester: 0.44-4.66 Blood 10/07/2022 3:43 PM EDT 10/07/2022 4:02 PM EDT Narrative Resulting Agency Comment Spec In Lab Tegan Dodson MD CHEMISTRY ORDERABLES Performing Organization Address [facility] Co de Phone Number [facility] [place] [address] documented in this encounter Visit Diagnoses Diagnosis Elevated TSH Other abnormal blood chemistry Subclinical hypothyroidism Other specified acquired hypothyroidism documented in this encounter Care Teams Biomass Technician Relationship Specialty Start Date End Date Alfreda Molina MD PCP - General Pediatrics 11/30/20 12/04/22 documented as of this encounter
--- OUTSIDE RECORDS SUMMARY | 2024-07-29 00:25 | XMS_ITS | Encounter Summary ---
Author Organization [facility] Address [facility] [place] [address] Care Team Providers Care Director Of Medical Education Name Role Phone Alfreda Molina MD Primary Care Provider Vicky vailable Encounter Details Date Type Department Care Team (Late st Contact Info) Description 02/04/2022 Interpretation Only [address] [phone] Hank Quintero MD [address] [place] [id number] Social History Tobacco Use Types Packs/Day Years Used Date Smoking Tobacco: Never Smokeless Tobacco: Never Comments:no one smokes at [facility] Alcohol Use Standard Drinks/Week Comments No [...] Info) Description 08/08/2024 9:00 AM EST Appointment [address] [phone] Umu Saucedo RN 08/15/2024 10:45 AM EST TH Visit (TeleHealth) Obstetrics [place] [phone] Dara Kelley MD [facility] OBSTETRICS [place] [address] 11/25/2024 Hospital [place] [phone] Dara Gonzalez MD [facility] OBSTETRICS [place] [address] 07/12/2025 1:40 PM EST Office [place] [phone] Bina Agrawal OD [facility] OPHTHALMOLOGY [place], [place] [phone] documented as of this encounter Procedures Procedure Name Priority Date/Time Associated Diagnosis Comments XR KNEE AP & LAT LEFT STAT 02/04/2022 8:08 PM EDT documented in this encounter Results * XR Knee 1-2 Views Left (Generic) (02/04/2022 8:08 PM EDT) PT CLASS E RAD ADMITDTTM RAD PT RAD INFO [id number]^W AKI^KATERINE W RAD EXAM DESC XKN2L^XR LEFT KNEE 2 VIEWS^RIS RAD Anatomical Region Laterality Modality Knee Left Radiographic Taisha ging Impressions 02/04/2022 8:50 PM EDT No acute fracture No knee effusion. Thank you for letting us participate in the care of this patient. ??If you are a health care provider and have any questions regarding this report, please contact the number below. ??For patients who have questions please contact the health career technical education teacher that requested your imaging first. ? Narrative 02/04/2022 8:50 PM EDT EXAMINATION: XR LEFT KNEE 2 VIEWS CLINICAL HISTORY: hit L knee., , entered by ordering service TECHNIQUE: LEFT knee, 2 view[s], supine COMPARISON: none FINDINGS: Bones No acute fracture Knee joint No effusion. No lipohemarthrosis Normal alignment. Soft tissues No chondrocalcinosis. Procedure Note Quiana Harding MD - 02/04/2022 EXAMINATION: XR LEFT KNEE 2 VIEWS CLINICAL HISTORY: hit L knee., , entered by ordering service TECHNIQUE: LEFT knee, 2 view[s], supine COMPARISON: none FINDINGS: Bones No acute fracture Knee joint No effusion. No lipohemarthrosis Normal alignment. Soft tissues No chondrocalcinosis. IMPRESSION No acute fracture No knee effusion. Thank you for letting us participate in the care of this patient. If youare a health care provider and have any questions regarding this report,please contact the number below. For patients who have questions please contactthe health career technical education teacher that requested your imaging first. Hank Quintero MD IMG DX ORDERABLES documented in this encounter Visit Diagnoses Not on filedocumented in this encounter Care Teams Director Of Medical Education Relationship Specialty Start Date End Date Alfreda Molina MD PCP - General Pediatrics 11/30/20 12/04/22 documented as of this encounter
--- OUTSIDE RECORDS SUMMARY | 2024-07-29 00:25 | XMS_ITS | Encounter Summary ---
Author Organization [facility] Address [facility] [place] [address] Care Team Providers Care Educational Administration Teacher Name Role Phone Alfreda Molina MD Primary Care Provider Vicky vailable Encounter Details Date Type Department Care Team (Late st Contact Info) Description 02/12/2022 Orders Only [facility] [address] [place] [address] Edilma Patel, PA [address] OBSTETRICS [place] [address] Vulvar lesion Social History Tobacco Use Types Packs/Day Years Used Date Smoking Tobacco: Never Smokeless Tobacco: Never Comments:no one smokes at [facility] Alcohol Use Standard Drinks/Week Comments No 0 [...] Description 08/08/2024 9:00 AM EST Appointment [address] [phone] Umu Saucedo RN 08/15/2024 10:45 AM EST TH Visit (TeleHealth) Obstetrics and Gynecology at [place] [phone] Dara Kelley MD [facility] [place] [address] 11/25/2024 Hospital Encounter Birthing [place] [phone] Dara Gonzalez MD [facility] [place] [address] 07/12/2025 1:40 PM EST Office Visit Ophthalmology at [place] [phone] Bina Agrawal OD [facility] [place] [address] documented as of this encounter Results * HSV 1 and 2 IgG Antibodies (02/14/2022 12:53 PM EDT) HSV Type 1 Ab, IgG Negative Negative [facility] HSV Type 2 Ab, IgG Negative Negative [facility] Blood 02/14/2022 12:5 3 PM EDT 02/18/2022 7:32 AM EDT Narrative Resulting Agency Comment Spec In Lab Earle Cade MD IMMUNOLOGY ORDERABL ES [facility] [place] [address] documented in this encounter Visit Diagnoses Diagnosis Vulvar lesion Other specified noninflammatory disorder of vulva and perineum documented in this encounter Care Teams Educational Administration Teacher Relationship Specialty Start Date End Date Alfreda Molina MD PCP - General Pediatrics 11/30/20 12/04/22 documented as of this encounter
--- OUTSIDE RECORDS SUMMARY | 2024-07-29 00:25 | XMS_ITS | Encounter Summary ---
Author Organization [facility] [place] [address] Care Team Providers Care Multifocal Button Generator Name Role Phone Alfreda Molina MD Primary Care Provider Vicky vailable Encounter Details Date Type Department Care Team (Late st Contact Info) Description 03/06/2022 1:30 AM EDT Ancillary Procedure Radiology Xray at [facility] [address] [facility] [place] [address] Social History Tobacco Use Types Packs/Day Years Used Date Smoking Tobacco: Never Smokeless Tobacco: Never Comments:no one smokes at [facility] Alcohol Use Standard Drinks/Week Comments [...] Info) Description 08/08/2024 9:00 AM EST Appointment [address] [phone] Umu Saucedo RN 08/15/2024 10:45 AM EST TH Visit (TeleHealth) Obstetrics [place] [phone] Dara Kelley MD [facility] OBSTETRICS [place] [address] 11/25/2024 [place] [address] Dara Gonzalez MD [facility] OBSTETRICS [place] [address] 07/12/2025 1:40 PM EST Office [place] [address] Bina Agrawal OD [facility] [place] [address] documented as of this encounter Procedures Procedure Name Priority Date/Time Associated Diagnosis Comments XR ANKLE MIN 3 VIEWS RIGHT STAT 03/06/2022 1:51 AM EDT XR FOOT MIN 3 VIEWS RIGHT STAT 03/06/2022 1:51 AM EDT XR WRIST 3 VIEWS LEFT STAT 03/06/2022 1:51 AM EDT documented in this encounter Results * XR Ankle Min 3 views Right (Generic) (03/06/2022 1:51 AM EDT) Anatomical Region Laterality Modality Ankle Right Digital Radiogra phy Impressions 03/06/2022 2:10 AM EDT 1. ??No acute fracture or dislocation of the right ankle or foot. 2. ??Soft tissue swelling about the lateral malleolus may represent ligament injury. Thank you for letting us participate in the care of this patient. ??If you are a health care provider and have any questions regarding this report, please contact the number below. ??For patients who have questions please contact the health career coach that requested your imaging first. ? Narrative 03/06/2022 2:10 AM EDT EXAMINATION: XR ANKLE MIN 3 VIEWS RIGHT (GENERIC), XR FOOT MIN 3 VIEWS RIGHT (GENERIC) CLINICAL HISTORY: acute onset pain after hearing a pop 6 days ago, lateral foot tenderness at proximal 5th metatarsal, diffuse lateral ankle pain TECHNIQUE: Right ankle, 3 views Right foot, 3 views COMPARISON: None. FINDINGS: Ankle: The ankle mortise and talar dome are intact and without acute fracture or dislocation. No ankle joint effusion. Soft tissue swelling about the lateral malleolus. Foot: Normal alignment of the digits of the right foot without acute fracture or dislocation. Specifically, no fracture of the base of the fifth metatarsal. Joint spaces are preserved. No focal soft tissue swelling. Procedure Note Raina Hewitt MD - 03/06/2022 EXAMINATION: XR ANKLE MIN 3 VIEWS RIGHT (GENERIC), XR FOOT MIN 3 VIEWSRIGHT (GENERIC) CLINICAL HISTORY: acute onset pain after hearing a pop 6 days ago, lateralfoot tenderness at proximal 5th metatarsal, diffuse lateral ankle pain TECHNIQUE: Right ankle, 3 views Right foot, 3 views COMPARISON: None. FINDINGS: Ankle: The ankle mortise and talar dome are intact and without acutefracture or dislocation. No ankle joint effusion. Soft tissue swelling about thelateral malleolus. Foot: Normal alignment of the digits of the right foot without acutefracture or dislocation. Specifically, no fracture of the base of the fifthmetatarsal. Joint spaces are preserved. No focal soft tissue swelling. IMPRESSION 1. No acute fracture or dislocation of the right ankle or foot. 2. Soft tissue swelling about the lateral malleolus may representligament injury. Thank you for letting us participate in the care of this patient. If youare a health care provider and have any questions regarding this report,please contact the number below. For patients who have questions please contactthe health career coach that requested your imaging first. Yulissa Che MD IMG DX ORDERABLES * XR Foot Min 3 views Right (Generic) (03/06/2022 1:51 AM EDT) Anatomical Region Laterality Modality Foot Right Digital Radiogra phy Impressions 03/06/2022 2:10 AM EDT 1. ??No acute fracture or dislocation of the right ankle or foot. 2. ??Soft tissue swelling about the lateral malleolus may represent ligament injury. Thank you for letting us participate in the care of this patient. ??If you are a health care provider and have any questions regarding this report, please contact the number below. ??For patients who have questions please contact the health career coach that requested your imaging first. ? Narrative 03/06/2022 2:10 AM EDT EXAMINATION: XR ANKLE MIN 3 VIEWS RIGHT (GENERIC), XR FOOT MIN 3 VIEWS RIGHT (GENERIC) CLINICAL HISTORY: acute onset pain after hearing a pop 6 days ago, lateral foot tenderness at proximal 5th metatarsal, diffuse lateral ankle pain TECHNIQUE: Right ankle, 3 views Right foot, 3 views COMPARISON: None. FINDINGS: Ankle: The ankle mortise and talar dome are intact and without acute fracture or dislocation. No ankle joint effusion. Soft tissue swelling about the lateral malleolus. Foot: Normal alignment of the digits of the right foot without acute fracture or dislocation. Specifically, no fracture of the base of the fifth metatarsal. Joint spaces are preserved. No focal soft tissue swelling. Procedure Note Raina Hewitt MD - 03/06/2022 EXAMINATION: XR ANKLE MIN 3 VIEWS RIGHT (GENERIC), XR FOOT MIN 3 VIEWSRIGHT (GENERIC) CLINICAL HISTORY: acute onset pain after hearing a pop 6 days ago, lateralfoot tenderness at proximal 5th metatarsal, diffuse lateral ankle pain TECHNIQUE: Right ankle, 3 views Right foot, 3 views COMPARISON: None. FINDINGS: Ankle: The ankle mortise and talar dome are intact and without acutefracture or dislocation. No ankle joint effusion. Soft tissue swelling about thelateral malleolus. Foot: Normal alignment of the digits of the right foot without acutefracture or dislocation. Specifically, no fracture of the base of the fifthmetatarsal. Joint spaces are preserved. No focal soft tissue swelling. IMPRESSION 1. No acute fracture or dislocation of the right ankle or foot. 2. Soft tissue swelling about the lateral malleolus may representligament injury. Thank you for letting us participate in the care of this patient. If youare a health care provider and have any questions regarding this report,please contact the number below. For patients who have questions please contactthe health career coach that requested your imaging first. Yulissa Che MD IMG DX ORDERABLES * XR Wrist 3 Views Left (03/06/2022 1:51 AM EDT) Anatomical Region Laterality Modality Left Digital Radiogra phy Impressions 03/06/2022 2:07 AM EDT No acute fracture or dislocation of the left wrist. Thank you for letting us participate in the care of this patient. ??If you are a health care provider and have any questions regarding this report, please contact the number below. ??For patients who have questions please contact the health career coach that requested your imaging first. ? Narrative 03/06/2022 2:07 AM EDT EXAMINATION: XR WRIST 3 VIEWS LEFT CLINICAL HISTORY: acute pain x 4 days TECHNIQUE: 3 views LEFT wrist COMPARISON: None FINDINGS: The distal radius ulna and carpal bones are well aligned and without acute fracture or dislocation. The visualized proximal metacarpals are also intact. Bone mineralization is normal. Procedure Note Raina Hewitt MD - 03/06/2022 EXAMINATION: XR WRIST 3 VIEWS LEFT CLINICAL HISTORY: acute pain x 4 days TECHNIQUE: 3 views LEFT wrist COMPARISON: None FINDINGS: The distal radius ulna and carpal bones are well aligned and withoutacute fracture or dislocation. The visualized proximal metacarpals are alsointact. Bone mineralization is normal. IMPRESSION No acute fracture or dislocation of the left wrist. Thank you for letting us participate in the care of this patient. If youare a health care provider and have any questions regarding this report,please contact the number below. For patients who have questions please contactthe health career coach that requested your imaging first. Yulissa Che MD IMG DX ORDERABLES documented in this encounter Visit Diagnoses Not on filedocumented in this encounter Care Teams Multifocal Button Generator Relationship Specialty Start Date End Date Alfreda Molina MD PCP - General Pediatrics 11/30/20 12/04/22 documented as of this encounter
--- OUTSIDE RECORDS SUMMARY | 2024-07-29 00:25 | XMS_ITS | Encounter Summary ---
Author Organization [facility] Address [facility] [place] [address] Care Team Providers Care Expander Name Role Phone Alfreda Molina MD Primary Care Provider Vicky vailable Reason for Visit * Reason Comments Medication Check Self. Med-Check. Wan ts to talk about switching control. Encounter Details Date Type Department Care Team (Late st Contact Info) Description 09/30/2021 3:30 PM EDT Office Visit Pediatrics at [address] [phone] Alfreda Molina MD Depression, unspecified depression type Social History Tobacco Use Types Packs/Day Years Used Date Smoking Tobacco: Never Smokeless Tobacco: Never Comments:no one smokes at [facility] Alcohol Use Standard Drinks/Week Comments No 0 (1 standard drink = 0.6 oz pur e alcohol) Sex and Gender Information Value Date Recorded Sex Assigned at Female 07/24/2023 9:35 AM EST Gender Identity Female 07/24/2023 9:35 AM EST Sexual Orientation Straight 07/24/2023 9: 35 AM EST documented as of this encounter Last Filed Vital Signs Vital Sign Reading Time Taken Comments Blood Pressure 120/58 09/30/2021 3:16 PM EDT Pulse - - Temperature - - Respiratory Rate - - Oxygen Saturation - - Inhaled Oxygen Concentration - - Weight 56.4 kg (124 lb 4.8 oz) 09/30/2021 3:16 P M EDT Height 150 cm (4' 11.06) 09/30/2021 3:16 PM EDT Body Mass Index 25.06 09/30/2021 3:16 PM EDT Body Mass Index Percentile 82.90% 09/30/2021 3:1 6 PM EDT Growth Chart: [facility] (Girls, 2- 20 Years) documented in this encounter Patient Instructions * Patient Instructions* Alfreda Molina MD - 09/30/2021 3:41 PM EDT BEHAVIORAL HEALTH CARE FOR YOU Your PCP is recommending that you see a mental health professional. Please follow the instructions below. Please schedule a follow-up appointment with your PCP for one month from now on your way out. How to find a therapist for you Use the Psychology Today Therapy Finder website to narrow down your search-- [email or web address] [facility], a large group practice with offices in [facility], and [place], [place] [phone] If you are enrolled in Medicaid your state specific local community mental health center may be a very good option for you . In the [facility] they are: [facility] ([place]) [phone] [facility] ([place]) [phone] Outside the [facility] in [place] and [place], google the community mental health center in your county. When should you call for help? In CASE OF EMERGENCY: Emergency service crisis hotlines: [place]: ([facility]) [place]: (HCRS) OR CALL 911 Suicide Prevention Hotline: Where can you learn more? For a description of approaches to counseling based upon presenting need, please refer to the following links: https://childmind.org/guide/fjlzu-mu-lkossgsapp-treatments/qhpq-sj-thmhvvukce/ https://www.nimh.nih.gov/heatlh/topics/psychotherapies/index.shtml documented in this encounter Progress Notes * Alfreda Molina MD - 09/30/2021 3:30 PM EDT Assessment: Ely is a 16yo female w/ hx of anxiety and depression who presents with worsening of depression following separation from her long-term boyfriend. Patient reports that anxiety and depression has worsened over the last couple of weeks and peaked with their break-up over the weekend. Reassuringly, she is feeling better today and has no thoughts of self-harm or SI. Will restart the SSRI she was previously on which helped and recommended starting therapy. Discussed control options with her today nuva ring, depo, OCP and IUD. After discussing pros and cons she would like to have IUD placed. She is already being followed by OBGYN so recommended follow-up appointment for placement. She is also reporting stable knee pain and popping of her knee (superior to the knee joint) for thelast couple of months particularly with walking/running and no hx of trauma or injury. On examination ruled out effusion and injury of the ACL/PCL, LCL/MCL, menisci and patellar subluxation. Pain maybe related to patellofemoral syndrome or plica, however, usually occurs in athletes and she is active but not to the level that I would expect either of these diagnoses. Recommended icing, ibuprofen and seeing PT to help with exercises to strengthen muscles. Will continue to follow closely and if any worsening symptoms recommend to return to care. Plan: Anxiety and depression: -start zoloft -gave resources for therapy -reviewed safety plan -follow-up in 1 month control: -follow-up with OB to place IUD Patellofemoral syndrome: -offered PT -recommended resting, icing and ibuprofen -follow-up in 1 month Return to Clinic for: -if worsening of depression/anxiety or knee pain Chief Complaint: Chief Complaint Patient presents with ??? Medication Check Self. Med-Check. Wants to talk about switching control. History of Present Illness: Depression and anxiety: -the last couple of weeks have not been going well, she says there has been strain on their relationship as he told her he doesn't love her anymore (she feels betrayed) and also their goals don't align (she is saving money to get an apartment but he is not) -she has felt down and anxious almost every day over the last couple of weeks -started talking to close friends over the last couple of weeks which has helped and going to see sister this Thursday -boyfriend broke up with her over the weekend -they have been together for many years so this is really hard for her and she has felt really downand sad -friends and family supportive -today she is feeling a bit better as she has thought about it a lot, she thinks it is all meant black -she still enjoys going on walks with her dogs, playing video games and seeing friends -no thoughts of self-harm or SI -if thoughts of self harm then would call sister or grandparents -she has tried SSRI in past which has helped -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 [employer] -going to get a job at a [employer], make more money -would like to save money for an appartment control: -would like to change mode of control -patch leading to rashes -would like to start nuva ring, Depo or IUD Knee pain: -feeling like knee is popping while walking with some pain, happens more commonly on left knee -no previous injury or trauma -knee pain has been occurring for a couple months and has stayed the same - has not increased in frequency or increased in pain -feels like when she 'pops her knuckles' but can hurt too -occurs with bending knee particularly with walking or running, can feel stiff -does not run a lot -pain is superior to patella -no radiation of pain or changes in sensation Review of Systems: Negative other than above PMH: -hx of anxiety and depression Vital Signs: BP 120/58 Ht (!) 150 cm (4' 11.06) Wt 56.4 kg (124 lb 4.8 oz) BMI 25.06 kg/m?? PHYSICAL EXAM: Physical Exam General: awake, alert, cooperative, interactive HEENT: NC/AT, PERRL, EOMI, OP clear and without erythema CV: S1S2+, RRR without murmur Resp: CTA B without wheezes Abd: soft, non-tender, non-distended, no masses, normoactive bowel sounds Ext: warm, dry, without rashes , capillary refill<2seconds Neuro: grossly intact, gait normal, moves all extremities equally MSK: no pain on palpation of bilateral knees, no effusions present, no pain or abnormal deviation of the patellas on manipulation, strength intact on extension and flexion of the hips and knees, anterior and posterior drawer test negative bilaterally, jaya test negative bilat, varus and valgus stress negative bilat, no pain with walking in room and no pain with squating in room, sensation intact in lower limbs * Phoenix Julian MD - 09/30/2021 3:30 PM EDT I was the attending physician supervising the resident in the above care. For the purposes of billing, the resident provided the care. documented in this encounter Miscellaneous Notes * Addendum Note - Phoenix Julian MD - 09/30/2021 3:30 PM EDTAddended by: PHOENIX JULIAN on: 10/13/2021 09:51 PM Modules accepted: Level of Service documented in this encounter Plan of Treatment Upcoming Encounters Date Type Department Care Team (Late st Contact Info) Description 08/08/2024 9:00 AM EST Appointment [address] [phone] Umu Saucedo RN 08/15/2024 10:45 AM EST TH Visit (TeleHealth) [place]stetrics [place] [address] Dara Kelley MD [facility] DR OBSTETRICS [place] [address] 11/25/2024 [facility] [place] [phone] Dara Gonzalez MD [facility] OBSTETRICS [place] [address] 07/12/2025 1:40 PM EST Office Visit Ophthalmology at [place] [phone] Bina Agrawal OD [facility] [place] [address] documented as of this encounter Visit Diagnoses Diagnosis Depression, unspecified depression type documented in this encounter Care Teams Expander Relationship Specialty Start Date End Date Alfreda Molina MD PCP - General Pediatrics 11/30/20 12/04/22 documented as of this encounter
--- OUTSIDE RECORDS SUMMARY | 2024-07-29 00:25 | XMS_ITS | Encounter Summary ---
Author Organization [facility] Address [facility] [place] [address] Care Team Providers Care Field Hockey Coach Name Role Phone Alfreda Molina MD Primary Care Provider Vicky vailable Reason for Visit * Reason Comments Follow-up Here alone. Nothing of any new concern. Pt here to discuss depression/anxiety. Encounter Details Date Type Department Care Team (Late st Contact Info) Description 10/23/2021 2:30 PM EDT Office Visit Pediatrics at [address] [phone] Alfreda Molina MD CREATED BY INTERFACE; Health care maintenance Social History Tobacco Use Types Packs/Day Years Used Date Smoking Tobacco: Never Smokeless Tobacco: Never Comments:no one smokes at [facility] Alcohol Use Standard Drinks/Week Comments No [...] Reading Time Taken Comments Blood Pressure 124/72 10/23/2021 2:32 PM EDT Pulse - - Temperature - - Respiratory Rate - - Oxygen Saturation - - Inhaled Oxygen Concentration - - Weight 56.8 kg (125 lb 3.2 oz) 10/23/2021 2:32 P M EDT Height 151 cm (4' 11.45) 10/23/2021 2:32 PM EDT Body Mass Index 24.91 10/23/2021 2:32 PM EDT Body Mass Index Percentile 82.05% 10/23/2021 2:3 2 PM EDT Growth Chart: [facility] (Girls, 2- 20 Years) documented in this encounter Patient Instructions * Patient Instructions* Alfreda Molina MD - 10/27/2021 3:01 PM EDT BEHAVIORAL HEALTH CARE FOR YOUR CHILD Your PCP is recommending that your child see a mental health professional. Please follow the instructions below. Please schedule a follow-up appointment with your child???s PCP for one month from now on your way out. How to find a therapist for your child Use the Psychology Today Therapy Finder website to narrow down your search-- [email or web address] [facility], a large group practice with offices in [facility], and [place], [place] [phone] If you are enrolled in Medicaid your state specific local community mental health center may be a very good option for your child. In the [facility] they are: [facility]) [phone] [facility] ([place]) [phone] Outside the [facility] in [place] and [place], google the community mental health center in your county. When should you call for help? In CASE OF EMERGENCY: Emergency service crisis hotlines: [place]: ([facility]) [place]: (HCRS) OR CALL 911 Suicide Prevention Hotline: Where can you learn more? For a description of approaches to counseling based upon presenting need, please refer to the following links: https://childmind.org/guide/msyfo-bo-hynalkxpya-treatments/lrjt-tx-nuihlndlhf/ https://www.nimh.nih.gov/heatlh/topics/psychotherapies/index.shtml documented in this encounter Progress Notes * Alfreda Molina MD - 10/23/2021 2:30 PM EDT Assessment: Ely is a 16yo female who presents for follow-up visit of anxiety and depression. She overall feelsthat her mood has improved since her and her boyfriend have gotten back together but does feel anxious or down particularly when her grandparents are upset that she doesn't help around the house. Ninfais also feeling more tired but does not have a regular day/night schedule. Discussed that making a schedule for daily activities will help with her relationship with grandparents, mood and sleep. Discussed incorporating house chores, highschool degree, work, sleep and fun activities into regular schedule. Also recommend restarting zoloft and reaching out to therapist particularly in setting of recent break up with boyfriend and ongoing anxiety/depression. She is concerned that she could be due to recent unprotected intercourse, POC urine HCG negative in clinic. Discussed safe sex. Plan: -recommend that she re-start zoloft -recommend to start therapy, resources given -discussed making a schedule for her days and for sleeping -follow-up in 3 months or sooner if any worsening of symptoms or other concerns Return to Clinic for: For worsening of symptoms of anxiety, depression or fatigue Chief Complaint: Chief Complaint Patient presents with ??? Follow-up Here alone. Nothing of any new concern. Pt here to discuss depression/anxiety. History of Present Illness: Anxiety/depression: -Ely and boyfriend back together her mood has greatly improved and she feels happy -they are working on things together, trying to sort out concerns they previously had -took zoloft for 3 days and then missed doses, and hasnt since -she feels anxious/down when her grandparents get upset that her and her boyfriend dont help aroundthe house -feels anxious a lot more then used to be, she has a lot going on in her life, sometimes it affectssleep -still trying to get her own apartment -feels very tired, had screening labs in the fall that were wnl other then vit D which was low normal -does not have a consistent sleep schedule goes to bed anytime between 11pm to 3-4am, and wakes up sometimes in the morning around noon or occasionally in the afternoon -does not keep a regular sleep schedule as she does not want to get out of bed because she does nothave anything to do during the day -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 diploma but no set schedule -no thoughts of self harm or SI -would tell boyfriend or grandparents if thoughts of hurting self Contraception: -decided against IUD and started the nuva ring, no side effects -worried she could be -unprotected intercourse before placing nuva ring around 2-3 weeks ago, has felt nauseous -home test neg Knee pain and clicking: -knees improved, no longer feeling pain or clicking sensation Review of Systems: Negative other than above PMH: -hx of anxiety and depression Vital Signs: BP 124/72 Ht 151 cm (4' 11.45) Wt 56.8 kg (125 lb 3.2 oz) LMP 09/27/2021 (Exact Date) BMI 24.91 kg/m?? PHYSICAL EXAM: General: awake, alert, cooperative, interactive HEENT: NC/AT, PERRL, TM non-erythematous, OP clear and without erythema, no cervical lymphadenopathy CV: S1S2+, RRR without murmur Resp: CTA B without wheezes Abd: soft, non-tender, non-distended, no masses or HSM, normoactive bowel sounds Ext: warm, dry, without rashes , capillary refill<2seconds Neuro: grossly intact, gait normal, moves all extremities equally * Princess Marroquin MD - 10/23/2021 2:30 PM EDT The case was discussed at the time [...] Description 08/08/2024 9:00 AM EST Appointment [address] [phone] Umu Saucedo, RN 08/15/2024 10:45 AM EST TH Visit (TeleHealth) Obstetrics and Gynecology at [place] [phone] Dara Kelley MD [facility] OBSTETRICS [place] [address] 11/25/2024 Hospital [place] [address] Dara Gonzalez MD [facility] OBSTETRICS [place] [address] 07/12/2025 1:40 PM EST Office Visit Ophthalmology at [place] [phone] Bina Agrawal OD [facility] [place] [address] documented as of this encounter Procedures Procedure Name Priority Date/Time Associated Diagnosis Comments POCT URINE Routine 10/23/2021 3:10 PM EDT Health care maintenance documented in this encounter Results * POCT urine (10/23/2021 3:10 PM EDT) POC Urine HCG Negative POC Control Internal Controls Acceptable 10/23/2021 3:10 PM EDT Princess Marroquin MD POINT OF CARE TEST O RDERABLES documented in this encounter Visit Diagnoses Diagnosis CREATED BY INTERFACE Used by the Incoming Problem List or Incoming Clinical Observations Interface as a dummy diagnosis to file in case the diagnosis designated on the incoming message is not mapped in Epic. Health care maintenance Unspecified general medical examination documented in this encounter Care Teams Field Hockey Coach Relationship Specialty Start Date End Date Alfreda Molina MD PCP - General Pediatrics 11/30/20 12/04/22 documented as of this encounter
--- OUTSIDE RECORDS SUMMARY | 2024-07-29 00:25 | XMS_ITS | Encounter Summary ---
Author Organization [facility] Address [facility] [place] [address] Care Team Providers Care Guide Setter Name Role Phone Alfreda Molina MD Primary Care Provider Vicky vailable Encounter Details Date Type Department Care Team (Latest Contact Info) Description 02/14/2022 11:50 AM EDT Laboratory Appointment Laboratory at [place] [phone] Elevated TSH; Vulvar lesion Social History Tobacco Use Types Packs/Day Years Used Date Smoking Tobacco: Never Smokeless Tobacco: Never Comments:no one smokes at [facility] Alcohol Use Standard Drinks/Week Comments No [...] Description 08/08/2024 9:00 AM EST Appointment [address] [phone] Umu Saucedo RN 08/15/2024 10:45 AM EST TH Visit (TeleHealth) Obstetrics [place] [address] Dara Kelley MD [facility] OBSTETRICS [place] [address] 11/25/2024 Hospital [place] [phone] Dara Gonzalez MD [facility] OBSTETRICS [place] [address] 07/12/2025 1:40 PM EST Office [place] [phone] Bina Agrawal OD [facility] [place] [address] documented as of this encounter Procedures Procedure Name Priority Date/Time Associated Diagnosis Comments HC THYROGLOBULIN ANTIBODIES Routine 02/14/2022 12:53 PM EDT Elevated TSH HC HERPES TYPE II AB, IGG Routine 02/14/2022 12:53 PM EDT Vulvar lesion HC THYROID PEROXIDASE ANTIBODY Routine 02/14/2022 12:53 PM EDT Elevated TSH HC THYROID STIMULATING HORMONE, SERUM Routine 02/14/2022 12:53 PM EDT Elevated TSH HC FREE THYROXINE (T4) Routine 12:53 PM EDT Elevated TSH HC VENIPUNCTURE Routine 02/14/2022 12:53 PM EDT Elevated TSH documented in this encounter Results * HSV 1 and 2 IgG Antibodies (02/14/2022 12:53 PM EDT) HSV Type 1 Ab, IgG Negative Negative [facility] HSV Type 2 Ab, IgG Negative Negative [facility] Blood 02/14/2022 12:5 3 PM EDT 02/18/2022 7:32 AM EDT Narrative Resulting Agency Comment Spec In Lab Earle Cade MD IMMUNOLOGY ORDERABL ES [facility] [address] [address] * (ABNORMAL) TSH (02/14/2022 12:53 PM EDT) Thyroid Stimulating Hormone 6.30(H) 0.27 - 4.20 mcIU/mL [facility] Comment: Reference Interval (mcIU/mL): Females: ??First Trimester: 0.23-3.88 ??Second Trimester: 0.22-3.90 ??Third Trimester: 0.44-4.66 Blood 02/14/2022 12:5 3 PM EDT 02/14/2022 12:53 PM EDT Narrative Resulting Agency Comment Spec In Lab Tegan Dodson MD CHEMISTRY ORDERABLES Performing Organization Address [facility] Co de Phone Number [facility] [address] [place] [address] * T4, free (02/14/2022 12:53 PM EDT) Free T4 1.31 0.93 - 1.70 ng/dL [facility] Comment: Reference Interval (ng/dL): Females: ??First Trimester: 0.97-1.68 ??Second Trimester: 0.77-1.51 ??Third Trimester: 0.77-1.49 Blood 02/14/2022 12:5 3 PM EDT 02/14/2022 12:53 PM EDT Narrative Resulting Agency Comment Spec In Lab Tegan Dodson MD CHEMISTRY ORDERABLES Performing Organization Address [facility] Co de Phone Number [facility] [address] [place] [address] * (ABNORMAL) Thyroid peroxidase antibody (02/14/2022 12:53 PM EDT) Thyroperoxidase Ab >1,000(H) <=34 IU/mL [facility] Blood 02/14/2022 12:5 3 PM EDT 02/18/2022 7:32 AM EDT Narrative Resulting Agency Comment Spec In Lab Tegan Dodson MD IMMUNOLOGY ORDERABLE S Performing Organization Address [facility] de Phone Number [facility] [place] [address] * (ABNORMAL) Thyroglobulin Antibody (02/14/2022 12:53 PM EDT) Pathologist [facility] Thyroglob Ab 360.0(H) 0.0 - 40.0 IU/mL [facility] Comment: This result was generated using a Siemens Immulite immunoassay. ??Results obtained from other methods or manufacturers cannot be used interchangeably with this method. Blood 02/14/2022 12:5 3 PM EDT 02/18/2022 7:32 AM EDT Narrative Resulting Agency Comment Spec In Lab Tegan Dodson MD LAB SEND OUT ORDERAB LES Performing Organization Address [facility] de Phone Number [facility] [place] [address] * (ABNORMAL) T4 Total (02/14/2022 12:53 PM EDT) T4 Total 15.1(H) 5.3 - 11.6 mcg/dL [facility] Comment: Reference Interval (mcg/dL): Females: ??First Trimester: 6.3-13.5 ??Second Trimester: 7.1-14.3 ??Third Trimester: 6.9-14.1 Blood 02/14/2022 12:5 3 PM EDT 02/14/2022 12:53 PM EDT Narrative Resulting Agency Comment Spec In Lab Tegan Dodson MD CHEMISTRY ORDERABLES [facility] [address] [place] [address] documented in this encounter Visit Diagnoses Diagnosis Elevated TSH Other abnormal blood chemistry Vulvar lesion Other specified noninflammatory disorder of vulva and perineum documented in this encounter Care Teams Guide Setter Relationship Specialty Start Date End Date Alfreda Molina MD PCP - General Pediatrics 11/30/20 12/04/22 documented as of this encounter
--- OUTSIDE RECORDS SUMMARY | 2024-07-29 00:25 | XMS_ITS | Encounter Summary ---
Author Organization [facility] [place] [address] Care Team Providers Care Marine Steam Fitter Helper Name Role Phone Alfreda Molina MD Primary Care Provider Vicky vailable Encounter Details Date Type Department Care Team (Latest Contact Info) Description 02/05/2022 10:30 AM EDT Laboratory Appointment Lab [address] [place] [address] Other fatigue Social History Tobacco Use Types Packs/Day Years Used Date Smoking Tobacco: Never Smokeless Tobacco: Never Comments:no one smokes at [facility] Alcohol Use Standard Drinks/Week Comments No 0 [...] Info) Description 08/08/2024 9:00 AM EST Appointment [address] [phone] Umu Saucedo RN 08/15/2024 10:45 AM EST TH Visit (TeleHealth) Obstetrics [place] [address] Dara Kelley MD [facility] [place] [address] 11/25/2024 Hospital Encounter Birthing [place] [phone] Dara Gonzalez MD [facility] [place] [address] 07/12/2025 1:40 PM EST Office Visit [place] [address] Bina Agrawal OD [facility] [place] [address] documented as of this encounter Procedures Procedure Name Priority Date/Time Associated Diagnosis Comments HEMOGRAM Routine 02/05/2022 10:41 AM EDT Other fatigue DIFFERENTIAL, AUTOMATED Routine 02/05/2022 10:41 AM EDT Other fatigue HC IRON BINDING CAPACITY Routine 02/05/2022 10:41 AM EDT Other fatigue HC RETIC,AUTO INCLUDES RETHE & IRF Routine 02/05/2022 10:41 AM EDT Other fatigue HC CBC,PLT & AUTO DIFF Routine 02/05/2022 10:41 AM EDT Other fatigue HC THYROID STIMULATING HORMONE, SERUM Routine 02/05/2022 10:41 AM EDT Other fatigue T4, FREE Routine 02/05/2022 10:41 AM EDT documented in this encounter Results * T4, free (02/05/2022 10:41 AM EDT) Free T4 0.96 0.93 - 1.70 ng/dL [facility] Comment: Reference Interval (ng/dL): Females: ??First Trimester: 0.97-1.68 ??Second Trimester: 0.77-1.51 ??Third Trimester: 0.77-1.49 Blood Venous Draw / Unknown 02/05/2022 10:41 AM EDT 02/05/2022 10:48 AM EDT Narrative Resulting Agency Comment Spec In Lab Tegan Dodson MD CHEMISTRY ORDERABLES [facility] [place] [address] * Differential, Automated (02/05/2022 10:41 AM EDT) Neutrophil % 66.0 % [facility] Neutrophil Absolute 4.96 1.70 - 6.10 x10(3)/[facility] Lymph % 24.0 % [facility] Lymphocytes Abs 1.8 0.9 - 3.2 x10(3)/[facility] Monocyte % 8.9 % [facility] Monocyte Abs 0.7 0.3 - 0.9 x10(3)/[facility] Eos % 0.3 % [facility] Eosinophils Abs 0.0 0.0 - 0.4 x10(3)/[facility] Basophil % 0.4 % [facility] Baso Absolute 0.0 0.0 - 0.1 x10(3)/[facility] Immature Gran % 0.40 % [facility] Comment: Immature granulocytes(IG's)percentage and absolute count will include metamyelocytes, myelocytes, and promyelocytes. Blood smears from CBCs yielding IG's will be scanned manually for concordance. If this scan disagrees with the automated IG or if promyelocytes are noted, a manual differential will be performed. Immature Gran Absolute 0.03 0.00 - 0.04 x10(3)/[facility] Blood 02/05/2022 10:4 1 AM EDT 02/05/2022 10:48 AM EDT Narrative Resulting Agency Comment Spec In Lab Tegan Dodson MD HEMATOLOGY ORDERABLE S [facility] [place] [address] * (ABNORMAL) Hemogram (02/05/2022 10:41 AM EDT) White Blood Cell 7.5 4.0 - 9.5 x10(3)/mc L [facility] Red Blood Cell 5.02 4.00 - 5.21 x10(6)/mc L [facility] Hemoglobin 14.2 11.7 - 15.5 g/dL [facility] Hematocrit 42.3 35.7 - 45.8 % [facility] Mean Cell Volume 84.3 82.6 - 94.4 fL [facility] Mean Cell Hemoglobin 28.3 27.1 - 32.0 pg [facility] Mean Cell Hemoglobin Concentration 33.6 31.7 - 35.0 g/dL [facility] Platelet 312 145 - 357 x10(3)/mc L [facility] RDW Standard Deviation 36.2(L) 37.0 - 46.0 [facility] RDW coefficient of variation 11.9 11.5 - 14.1 % [facility] Mean Platelet Volume 9.0 7.6 - 12.9 [facility] NRBC% auto 0.0 % [facility] NRBC Absolute 0.000 0.000 - 0.000 x10(3)/mc L [facility] Blood 02/05/2022 10:4 1 AM EDT 02/05/2022 10:48 AM EDT Narrative Resulting Agency Comment Spec In Lab Tegan Dodson MD HEMATOLOGY ORDERABLE S [facility] [place] [address] * Reticulocyte Count (02/05/2022 10:41 AM EDT) Pathologist [facility] Reticulocyte % 1.9 0.7 - 2.5 % [facility] Retic Abs # 0.090 0.020 - 0.110 x10(6)/mcL [facility] Immature Retic% 8.1 0.5 - 13.8 % [facility] Reticulated Hgb 31.4 29.8 - 39.4 pg [facility] Blood 02/05/2022 10:4 1 AM EDT 02/05/2022 10:48 AM EDT Narrative Resulting Agency Comment Spec In Lab Tegan Dodson MD HEMATOLOGY ORDERABLE S Performing Organization Address [facility]/ZIP Co de Phone Number [facility] [place] [address] * (ABNORMAL) Iron and TIBC (02/05/2022 10:41 AM EDT) [facility] Iron 32 20 - 160 mcg/dL [facility] TIBC 314 194 - 372 mcg/dL [facility] Iron Saturation 10(L) 20 - 50 % [facility] Blood 02/05/2022 10:4 1 AM EDT 02/05/2022 10:48 AM EDT Narrative Resulting Agency Comment Spec In Lab Tegan Dodson MD CHEMISTRY ORDERABLES Performing Organization Address City/[facility]/ZIP Co de Phone Number [facility] [place] [address] * (ABNORMAL) TSH (02/05/2022 10:41 AM EDT) Pathologist [facility] Thyroid Stimulating Hormone 9.31(H) 0.27 - 4.20 mcIU/mL [facility] Comment: Reference Interval (mcIU/mL): Females: ??First Trimester: 0.23-3.88 ??Second Trimester: 0.22-3.90 ??Third Trimester: 0.44-4.66 Blood 02/05/2022 10:4 1 AM EDT 02/05/2022 10:48 AM EDT Narrative Resulting Agency Comment Spec In Lab Tegan Dodson MD CHEMISTRY ORDERABLES Performing Organization Address City/State/[facility] Co de Phone Number [facility] [place] [address] documented in this encounter Visit Diagnoses Diagnosis Other fatigue documented in this encounter Care Teams Marine Steam Fitter Helper Relationship Specialty Start Date End Date Alfreda Molina MD PCP - General Pediatrics 11/30/20 12/04/22 documented as of this encounter
--- OUTSIDE RECORDS SUMMARY | 2024-07-29 00:25 | XMS_ITS | Encounter Summary ---
Author Organization [facility] Address [facility] [place] [address] Care Team Providers Care Surveillance Manager Name Role Phone Alfreda Molina MD Primary Care Provider Vicky vailable Reason for Visit * Reason Comments Well Child gram/guardian is in waiting area Other no concerns Encounter Details Date Type Department Care Team (Late st Contact Info) Description 07/10/2021 1:30 PM EST Office Visit Pediatrics at [address] [phone] Alfreda Molina MD Encounter for routine child health examination without abnormal findings Social History Tobacco Use Types Packs/Day Years Used Date Smoking Tobacco: Never Smokeless Tobacco: Never Comments:[facility] one smokes at [facility] Alcohol Use Standard Drinks/Week Comments [...] Sign Reading Time Taken Comments Blood Pressure 110/68 07/10/2021 1:21 PM EST Pulse - - Temperature - - Respiratory Rate - - Oxygen Saturation - - Inhaled Oxygen Concentration - - Weight 56.3 kg (124 lb 3.2 oz) 07/10/2021 1:21 P M EST Height 150 cm (4' 11.06) 07/10/2021 1:21 PM EST Body Mass Index 25.04 07/10/2021 1:21 PM EST Body Mass Index Percentile 83.28% 07/10/2021 1:2 1 PM EST Growth Chart: [facility] (Girls, 2- 20 Years) documented in this encounter Patient Instructions * Patient Instructions* Gela Peters, CCMA - 07/10/2021 1:30 PM EST Images from the original note were not included. How You Are Doing ??? Enjoy spending time with your family. Look for ways you can help at home. ??? Find ways to work with your family to solve problems. Follow your family???s rules. ??? Form healthy friendships and find fun, safe things to do with friends. ??? Set high goals for yourself in school and activities and for your future. ??? Try to be responsible for your schoolwork and for getting to school or work on time. ??? Find ways to deal with stress. Talk with your parents or other trusted adults if you need help. ??? Always talk through problems and never use violence. ??? If you get angry with someone, walk away if you can. ??? Call for help if you are in a situation that feels dangerous. ??? Healthy dating relationships are built on respect, concern, and doing things both of you like to do. ??? When you???re dating or in a sexual situation, ???No?? means NO. NO is OK. ??? Don???t smoke, vape, use drugs, or drink alcohol. Talk with us if you are worried about alcoholor drug use in your family. Your Feelings ??? Be proud of yourself when you do something good. ??? Figure out healthy ways to deal with stress. ??? Develop ways to solve problems and make good decisions. ??? It???s OK to feel up sometimes and down others, but if you feel sad most of the time, let us know so we can help you. ??? It???s important for you to have accurate information about sexuality, your physical development, and your sexual feelings toward the opposite or same sex. Please consider asking us if you have any questions. Healthy Behavior Choices ??? Choose friends who support your decision to not use tobacco, alcohol, or drugs. Support friendswho choose not to use. ??? Avoid situations with alcohol or drugs. ??? Don???t share your prescription medicines. Don???t use other people???s medicines. ??? Not having sex is the safest way to avoid and sexually transmitted infections (STIs). ??? Plan how to avoid sex and risky situations. ??? If you???re sexually active, protect against and STIs by correctly and consistently using control along with a condom. ??? Protect your hearing at work, home, and concerts. Keep your earbud volume down. Your Daily Life ??? Visit the dentist at least twice a year. ??? Dexter your teeth at least twice a day and floss once a day. ??? Be a healthy eater. It helps you do well in school and sports: o Have vegetables, fruits, lean protein, and whole grains at meals and snacks. o Limit fatty, sugary, and salty foods that are low in nutrients, such as candy, chips, and ice cream. o Eat when you???re hungry. Stop when you feel satisfied. o Eat with your family often. o Eat breakfast. ??? Drink plenty of water. Choose water instead of soda or sports drinks. ??? Make sure to get enough calcium every day. ??? Have 3 or more servings of low-fat (1%) or fat-free milk and other low-fat dairy products, suchas yogurt and cheese. ??? Aim for at least 1 hour of physical activity every day. ??? Wear your mouth guard when playing sports. ??? Get enough sleep. Staying Safe ??? Always be a safe and cautious bicycle taxi driver: o Insist that everyone use a lap and shoulder seat belt. o Limit the number of friends in the car and avoid driving at night. o Avoid distractions. Never text or talk on the phone while you drive. ??? Do not ride in a vehicle with someone who has been using drugs or alcohol. o If you feel unsafe driving or riding with someone, call someone you trust to drive you. ??? Wear helmets and protective gear while playing sports. Wear a helmet when riding a bike, a motorcycle, or an ATV or when skiing or skateboarding. Wear a life jacket when you do water sports. ??? Always use sunscreen and a hat when you???re outside. ??? Fighting and carrying weapons can be dangerous. Talk with your parents, teachers, or doctor about how to avoid these situations documented in this encounter Progress Notes * Alfreda Molina MD - 07/10/2021 1:30 PM EST Assessment: Ely is a 16yo female who presents for medication check and mental health follow-up. She is doing very well and mental health has greatly improved over the last couple of months since having time to rest, see siblings and started highschool completion program. Does not currently want to restart zoloft or see therapy but will follow-up and reach out if anything changes. No thoughts of self-harm. Plan: -follow-up in 3 months for mental health check-in -if any concerns of worsening depression/anxiety or wanting to transition contraceptions then return to care sooner Return to Clinic for: -prn any questions or concerns or worsening of symptoms Chief Complaint: Chief Complaint Patient presents with ??? Well Child gram/guardian is in waiting area ??? Other no concerns History of Present Illness: Recent ED visit: -Bleeding and faint positive test so likely miscarriage -Went to ED were HCG was negative and they reported likely miscarriage -Bleeding stopped day after going to the ED -Overall cramping has greatly improved over the last couple of days but does have a bit of crampingstill -after going to the ED started using the patch -started it on Thursday -OCP difficult to remember to take and difficult time with consistency of taking OCP -Using condoms regularly Med check: -Started taking zoloft and going well -Went to sisters for 3 days after xmas and forgot to take it then -Has not taken it since beginning of Jun -Mood has been good since having time to herself and catching up with sister -Not feeling down or anxious -transitioned to highschool completion program -Now with new school feeling less stressed -No thoughts of Self harm Review of Systems: -ROS wnl PMH: Patient Active Problem List Diagnosis Code ??? 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 CIS - Poor sleep ??? 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 Wears hearing aid [...] female control Z30.019 ??? Acne vulgaris L70.0 Vital Signs: BP 110/68 Ht (!) 150 cm (4' 11.06) Wt 56.3 kg (124 lb 3.2 oz) LMP 06/02/2021 BMI 25.04 kg/m?? PHYSICAL EXAM: General: awake, alert, cooperative, interactive, sitting on bed, smiling HEENT: NC/AT, PERRL, EOMI, OP clear and without erythema CV: S1S2+, RRR without murmur Resp: CTA B without wheezes Abd: soft, non-tender, non-distended, no masses, normoactive bowel sounds Ext: warm, dry, without rashes , capillary refill<2seconds Neuro: grossly intact, gait normal, moves all extremities equally * Gela Peters, [facility] - 07/10/2021 1:30 PM EST N/a * Princess Marroquin MD - 07/10/2021 1:30 PM EST The case was discussed at [...] Description 08/08/2024 9:00 AM EST Appointment [address] [phone] Umu Saucedo RN 08/15/2024 10:45 AM EST TH Visit (TeleHealth) Obstetrics and Gynecology at [place] [phone] Dara Kelley MD [facility] [address] [place] [address] 11/25/2024 Hospital Encounter Birthing [place] [phone] Dara Gonzalez MD [facility] [address] OBSTETRICS [place] [address] 07/12/2025 1:40 PM EST Office [place] [address] Bina Agrawal OD [facility] [place] [address] documented as of this encounter Visit Diagnoses Diagnosis Encounter for routine child health examination without abnormal findings Routine or child health check documented in this encounter Care Teams Surveillance Manager Relationship Specialty Start Date End Date Alfreda Molina MD PCP - General Pediatrics 11/30/20 12/04/22 documented as of this encounter
--- OUTSIDE RECORDS SUMMARY | 2024-07-29 00:25 | XMS_ITS | Encounter Summary ---
Author Organization [facility] Address [facility] [place] [address] Care Team Providers Care Channel Program Manager Name Role Phone Alfreda Molina MD Primary Care Provider Vicky vailable Encounter Details Date Type Department Care Team (Late st Contact Info) Description 02/05/2022 Orders Only Pediatrics at [facility] [address] [place] [phone] Tegan Dodson MD [facility] [address] [facility] [address] Elevated TSH Social History Tobacco Use Types Packs/Day Years Used Date Smoking Tobacco: Never Smokeless Tobacco: Never Comments:no one smokes at [facility] Alcohol Use Standard Drinks/Week Comments No [...] Info) Description 08/08/2024 9:00 AM EST Appointment [address] [phone] Umu Saucedo RN 08/15/2024 10:45 AM EST TH Visit (TeleHealth) Obstetrics [place] [phone] Dara Kelley MD [facility] OBSTETRICS [place] [address] 11/25/2024 Hospital Encounter Birthing [place] [phone] Dara Gonzalez MD [facility] OBSTETRICS [place] [address] 07/12/2025 1:40 PM EST Office [place] [phone] Bina Agrawal OD [facility] [address] documented as of this encounter Visit Diagnoses Diagnosis Elevated TSH Other abnormal blood chemistry documented in this encounter Care Teams Channel Program Manager Relationship Specialty Start Date End Date Alfreda Molina MD PCP - General Pediatrics 11/30/20 12/04/22 documented as of this encounter"
--- OUTSIDE RECORDS SUMMARY | 2024-07-29 00:25 | XMS_ITS | Encounter Summary ---
Author Organization [facility] Address [facility] [place] [address] Care Team Providers Care Whiskey Regauger Name Role Phone Alfreda Molina MD Primary Care Provider Vicky vailable Reason for Referral * Audiology Exam (Routine) - Specialty Diagnoses / Procedures Referred By Radha arroyo Referred To Contact Audiology Diagnoses Encounter for routine adult health examination without abnormal findings Alfreda Molina MD [facility] [place] [address] [facility] [place] [facility] [address] [address] [place] [phone] Referral ID Status Reason Start Date Expiration Date Visits Requested Visits Authorized [id number] Specialty Service Requested 04/30/2022 04/30/2023 1 1 * Consultation (Routine) - Closed Specialty Diagnoses / Procedures Referred By Radha arroyo Referred To Contact Gastroenterology Diagnoses Erythema nodosum 17yo with erythema nodosum, elevated ESR. Rule out IBD Samantha Whalen MD [facility] [address] [facility] [place] [address] [address] Referral ID Status Reason Start Date Expiration Date V isits Requested Visits Authorized [id number] Closed Specialty Service Requested 04/30/2022 04/30/2023 1 1 * E-Consultation (Routine) - Closed Specialty Diagnoses / Procedures Referred By Contact Referred To Contact Pediatric Gastroenterology Diagnoses Erythema nodosum Procedures eConsult to Pediatric Gastroenterology (Primary Care Use Only) Alfreda Molina MD [facility] PEDIATRICS [address] Pedi Gastro [address] [place] [address] Referral ID Status Reason Start Date Expiration Date Visits Re quested Visits Authorized [id number] Closed 04/25/2022 04/25/2023 1 1 Reason for Visit * Reason Comments Annual Exam Beth on legs x 2 mo [facility] Encounter Details Date Type Department Care Team (Late st Contact Info) Description 04/22/2022 2:00 PM EST Office Visit Pediatrics at [address] [phone] Alfreda Molina MD Encounter for routine adult health examination without abnormal findings; Erythema nodosum Social History Tobacco Use Types Packs/Day Years [...] Sign Reading Time Taken Comments Blood Pressure 132/74 04/22/2022 1:41 PM EST Pulse - - Temperature - - Respiratory Rate - - Oxygen Saturation - - Inhaled Oxygen Concentration - - Weight 59.1 kg (130 lb 4.8 oz) 04/22/2022 1:41 P M EST Height 149.8 cm (4' 10.98) 04/22/2022 1:[address] Body Mass Index 26.34 04/22/2022 1:41 PM EST Body Mass Index Percentile 87.00% 04/22/2022 1:4 1 PM EST Growth Chart: [facility] (Girls, 2- 20 Years) documented in this encounter Patient Instructions * Patient Instructions* Earle Otero, ARTIST [employer] - 04/22/2022 2:00 PM EST Images from the original note were not included. How You Are Doing ??? Enjoy spending time with your family. ??? Find activities you are really interested in, such as sports, theater, or volunteering. ??? Try to be responsible for your schoolwork or work obligations. ??? Always talk through problems and never use violence. ??? If you get angry with someone, try to walk away. ??? If you feel unsafe in your home or have been hurt by someone, let us know. Hotlines and community agencies can also provide confidential help. ??? Talk with us if you are worried about your living or food situation. Community agencies and programs such as [employer] can help. ??? Don???t smoke, vape, or use drugs. Avoid people who do when you can. Talk with us if you are worried about alcohol or drug use in your family. Your Feelings ??? Most people have ups and downs. If you are feeling sad, depressed, nervous, irritable, hopeless, or angry, let us know or reach out to another health health care / medical job titles. ??? Figure out healthy ways to deal with stress. ??? Try your best to solve problems and make decisions on your own. ??? Sexuality is an important part of your life. If you have any questions or concerns, we are herefor you. Healthy Behavior Choices ??? Avoid using drugs, alcohol, tobacco, steroids, and diet pills. Support friends who choose not to use. ??? If you use drugs or alcohol, let us know or talk with another trusted adult about it. We can help you with quitting or cutting down on your use. ??? Make healthy decisions about your sexual behavior. ??? If you are sexually active, always practice safe sex. Always use control along with a condom to prevent and sexually transmitted infections. ??? All sexual activity should be something you want. No one should ever force or try to convince you. ??? Protect your hearing at work, home, and concerts. Keep your earbud volume down. Your Daily Life ??? Visit the dentist at least twice a year. ??? [place] your teeth at least twice a day and floss once a day. ??? Be a healthy eater: o Have vegetables, fruits, lean protein, and whole grains at meals and snacks. o Limit fatty, sugary, salty foods that are low in nutrients, such as candy, chips, and ice cream. o Eat when you???re hungry. Stop when you feel satisfied. o Eat breakfast. ??? Drink plenty of water. ??? Make sure to get enough calcium every day: o Have 3 or more servings of low-fat (1%) or fat-free milk and other low-fat dairy products, such as yogurt and cheese. ??? Women: Make sure to eat foods rich in folate, such as fortified grains and dark-green leafy vegetables. ??? Aim for at least 1 hour of physical activity every day. ??? Wear safety equipment when you play sports. ??? Get enough sleep. ??? Talk with us about managing your health care and insurance as an adult. Staying Safe ??? Always be a safe and cautious pizza driver: o Insist that everyone use a [...] an ATV or when skiing or skateboarding. ??? Always use sunscreen and a hat when you???re outside. ??? Fighting and carrying weapons can be dangerous. Talk with your parents, teachers, or doctor about how to avoid these situations. documented in this encounter Progress Notes * Alfreda Molina MD - 04/22/2022 2:00 PM EST Subjective: Patient ID: Ely Mahmood is a 17 y.o. female. HPI Ely Mahmood is a 17 y.o. here today for: Chief Complaint Patient presents with ??? Annual Exam Beth on legs x 2 months Accompanied by: herself Problem list updates: No Additional Concerns/Interval History: New rash/bruises on lower limbs: Bruise type rashes on legs in the last 2 months When the first one started she was hit in the leg, this then got inflamed: painful, raised, warm tothe touch Has had multiple that have come and gone in different parts of legs Large one on the which is now healing and turning into a bruise, she has many pictures on her phone In the last two months has had 3 on left thigh, 3 on left knee, 2 on left lower leg, 2 on right knee, 3 on right lower leg and 2 on her right thigh. Only triggering factor she noted was that this started while she was taking valtrex On ROS - significant for low mood, extreme fatigue as well as sore throat and congestion Stools 1-2 x a day always soft and sometimes liquidy Never any bloody stools No fam hx of crohns/UC No tick bites, lyme neg in ED a month ago Health Maintenance and Age Appropriate Review of Systems: Ely aMhmood completed the DartScreen (comprehensive health screener) today. The full list of questions are on file. The following area(s) were assessed: issues of screener-identified concern and further confidential discussion are noted below: 15 minutes or more was spent on questionnaire completion and review with the patient. DartScreen 04/22/2022 Health Concerns Other concerns Nutrition Score 2 (Nutrition Risk) Sports Cardiac Score 1 (Sports Cardiac Risk) Activities Score 2 (Activity Risk) School Score 0 (No School Risk) Safety Score 1 (Safety Risk) Tobacco Score 2 (Tobacco Risk) Social Life Score 4 (Social Life Risk) Abuse Score 0 (No Abuse) Mental Health Score (PHQ2) 4 (Full PHQ-9 indicated) Mental Health Score (PHQ9) 14 (Moderate Depression) Anxiety Score 3 (Anxiety Risk) Anxiety Score (GAD7) 8 (Mild Anxiety) Self Harm Score 0 (No Self harm Risk) Family Score 0 (No Family Risk) Strengths Score 1 (Strengths RIsk) Health Maintenance: per AAP Bright Future Guidelines: Comments Prompts Menses Patient's last menstrual period was 03/20/2022 (exact date). Periods were regular up until starting the injection on apr 08 No bleeding at all which is improved as she previously had heavy menses Next injection due jul 09 Menarche, LMP, regular cycles Dental Will try to book a dentist apt, not consistent but trying to be more consistent BID brush, flossing, dentist Home Things are going well How are things at home? Education HS completion program, trying to finish by the end of this year but it has been hard School? Strengths? Challenges? Future goals? Employment Not working Activities Not much physical activity Lies in bed most of the day Screen time a few hours a day Activities Exercise Screen Time outside of school (<2 hours per day) Diet Low appetite, eats twice a day Has a mix of protein, carbs, fruit/vegs karen at dinner 5210 Body Image concerns? Drugs CRAFFT: None Caffeine, tobacco/vaping, EtOH, other Sleep Sleeps 16hrs a day every day Hours per night? Sexuality Everything is going well with boyfriend but he has depression, no other partners Gender Identity, dating preference Sexual Activity STI Risks Suicide/ depression Depression not going well and worrying about boyfriend a lot who is also having mental health concerns No thoughts of hurting self Sertraline at home so will restart PHQ 9 for depression GAD7 for anxiety Safety Reviewed helmets, weapons, interpersonal violence, bullying, vehicle safety (seat belt, texting etc). Pre-Sports Eval: Consider cardiology referral if concerns about the following table or if the following are present on exam: HTN, heart murmur, abnormal femoral pulses, stigmata of Marfan's Yes No Exertional chest pain [] [x] Exertional dyspnea/SOB [] [x] Unexplained syncope (excluding vasovagal) [] [x] Previous head injury or concussion [] [x] Hx of fractures/sprains [] [x] FHx of premature sudden <50yo or other cardiac [] [x] (long QT, Marfan, arrhythmia, HCM) Objective: Physical Exam General: awake, alert, cooperative, interactive, lower affect HEENT: NC/AT, PERRL, EOMI, OP clear and without erythema, mmm CV: S1S2+, RRR without murmur Resp: CTA B without wheezes Abd: soft, non-tender, non-distended, no masses, normoactive bowel sounds Ext: warm, dry, with multiple skin lesions consistent with erythema nodosum in various stages of healing, erythematous/bruise like rash on right lower limb, right knee, left lower limb and right upper thigh, capillary refill<2seconds Neuro: grossly intact, gait normal, moves all extremities equally Assessment and Plan: Ely is overall doing well but has had chronic fatigue and depression who now presents with concerns over the last two months with multiple raised, erythematous, bruise like rashes consistent with erythema nodosum. Discussed large differential but completed labs to evaluate for main causes of erythema nodosum. CBC, CMP, ASO titre, TSH/FT4, CRP, ESR for initial screening for thyroid disorder (previous concern for hypothyroidism), IBD, strep B and oncologic process. Erythema nodosum with elevated ESR: -2 months of erythema nodosum with rising ESR (now up to 40) and elevated platelets (476) -Stooling pattern 1-2 soft stools, sometimes liquidy, never any blood -Checked some general labs CBC, ASO titre, lyme, TFTs and CRP and all wnl -IBD seems high on the differential as causes of erythema nodosum with an elevated ESR especially without an elevated CRP -eConsulted pedi GI who recommended stool calprotectin and referral to pedi GI for evaluation in clinic -discussed with patient and placed orders -continue supportive care for erythema nodosum with warm compresses and ibuprofen Concerns for hearing difficulties: -place Audiology referral Growth Parameters: BMI =Body mass index is 26.34 kg/m??. BMI < 5% [] BMI 5-85% [] BMI 85%- 95% [x] BMI 95-99% [] BMI >99% [] Immunizations: Immunization record reviewed: UTD Patient and family was counseled on benefits, risks and complications for all vaccines and components as listed in the immunization category of the patient record and patient/family was given VIS foreach vaccine component. Recommended screening: Sent Not Sent Previously Done (Neg) N/A Lipid screen [x] [] [] [] GC/CT screen yearly [x] [] [] [] Hep C screen (once) [x] [] [] [] POCT HIV screen [x] [] [] [] If positive, Refer to ID per protocol If negative, routine care. Females: PAP smear (>21) [] [] [] [] Immunizations: Immunization record reviewed. Patient and family was counseled on benefits, risks and complicationsfor all vaccines and components as listed in the immunization category of the patient record and patient/family was given VIS for each vaccine component. Orders: Orders Placed This Encounter Procedures ??? Fluzone Quadrivalent Vaccine, Preservative Free 6MOS+ ??? Lipid Panel (Reflex Direct LDL) ??? Hepatitis C RNA, quantitative, PCR ??? CBC (with Diff) ??? Hemoglobin A1c ??? Sedimentation rate ??? CRP, acute inflammation ??? Streptococcal Antibody Panel ??? TSH ??? T4, free ??? POCT HIV Screen Follow up: Yes No N/A Transition planning discussed [] [x] [] Return in one year for annual exam and as needed. * Samantha Whalen MD - 04/22/2022 2:00 PM EST The case was discussed in person at the time of the visit or immediately after the visit. The assessment and plan were formulated in discussion with me and I agree with them as documented. I have reviewed the history, physical exam, assessment and plan with the resident. Major issues discussed today: 17yo seen for [facility] today. Main concern is rash consistent with erythema nodosum. No current GI symptoms and no FH of IBD. Lab workup done and revealed elevated ESR. Discussed with GI and recommended referral for further workup of possible IBD. Plan: GI referral in place, will follow up after that visit Samantha Whalen MD documented in this encounter Plan of Treatment Upcoming Encounters Date Type Department Care Team (Late st Contact Info) Description 08/08/2024 9:00 AM EST Appointment [address] [phone] Umu Saucedo RN 08/15/2024 10:45 AM EST TH Visit (TeleHealth) Obstetrics and Gynecology at [place] [phone] Dara Kelley MD [facility] OBSTETRICS [place] [address] 11/25/2024 Hospital Encounter [facility] [place] [phone] Dara Gonzalez MD [facility] OBSTETRICS [place] [address] 07/12/2025 1:40 PM EST Office Visit Ophthalmology at [place] [phone] Bina Agrawal OD [facility] [place] [address] Scheduled Referrals Name Type Priority Associated Diagnoses Order Schedule Referral to Pediatric Gastroenterology Outpatient Referral Routine Erythema nodosum Ordered: 04/30/2022 Referral to Audiology Outpatient Referral Routine Encounter for routine adult health examination without abnormal findings Ordered: 04/30/2022 documented as of this encounter Procedures Procedure Name Priority Date/Time Associated Diagnosis Comments POCT HIV SCREEN Routine 04/22/2022 2:59 PM EST Encounter for routine adult health examination without abnormal findings documented in this encounter Results * T4, free (04/22/2022 3:22 PM EST) [facility] Free T4 1.16 0.93 - 1.70 ng/dL [facility] Comment: Reference Interval (ng/dL): Females: ??First Trimester: 0.97-1.68 ??Second Trimester: 0.77-1.51 ??Third Trimester: 0.77-1.49 Blood 04/22/2022 3:22 PM EST 04/22/2022 3:29 PM EST Narrative Resulting Agency Comment Spec In Lab Samantha Whalen MD CHEMISTRY ORDERABLE S Performing Organization Address [facility] de Phone Number [facility] [place] [address] * TSH (04/22/2022 3:22 PM EST) Pathologist [facility] Thyroid Stimulating Hormone 3.33 0.27 - 4.20 mcIU/mL [facility] Comment: Reference Interval (mcIU/mL): Females: ??First Trimester: 0.23-3.88 ??Second Trimester: 0.22-3.90 ??Third Trimester: 0.44-4.66 Blood 04/22/2022 3:22 PM EST 04/22/2022 3:29 PM EST Narrative Resulting Agency Comment Spec In Lab Samantha Whalen MD CHEMISTRY ORDERABLE S Performing Organization Address [facility] Phone Number [facility] [place] [address] * Streptococcal Antibody Panel (04/22/2022 3:22 PM EST) [facility] Aso Titer (OCTOBER) 129 0 - 530 IU/mL [facility] Comment: Test Performed by: [place] [address] [place] Cleaner: Sundar Bradley M.D. Ph.D.; CLIA# [id number] Dnase B Ab (OCTOBER) 150 0 - 300 unit/mL [facility] Comment: Test Performed by: [facility] [place] [address] [place] Cleaner: Sundar Bradley M.D. Ph.D.; CLIA# [id number] Blood 04/22/2022 3:22 PM EST 04/23/2022 8:58 AM EST Narrative Resulting Agency Comment Spec In Lab Samantha Whalen MD LAB SEND OUT ORDERA BLES Performing Organization Address [facility]/ZIP Co de Phone Number [facility] [place] [address] * CRP, acute inflammation (04/22/2022 3:22 PM EST) Pathologist [facility] C-Reactive Protein <3.0 <=4.9 mg/L [facility] Blood 04/22/2022 3:22 PM EST 04/22/2022 3:29 PM EST Narrative Resulting Agency Comment Spec In Lab Samantha Whalen MD CHEMISTRY ORDERABLE S Performing Organization Address [facility] Co de Phone Number [facility] [place] [address] * (ABNORMAL) Sedimentation rate (04/22/2022 3:22 PM EST) [facility] Sedimentation Rate Automated 40(H) 2 - 37 mm/hr [facility] Comment: Effective May 25, 2019 new capillary photometric technology has resulted in a change in reference ranges. It is recommended that each ESR result be reviewed with its own age appropriate reference range. Blood 04/22/2022 3:22 PM EST 04/22/2022 3:29 PM EST Narrative Resulting Agency Comment Spec In Lab Samantha Whalen MD HEMATOLOGY ORDERABL ES Performing Organization Address [facility] Co de Phone Number [facility] [place] [address] * Hemoglobin A1c (04/22/2022 3:22 PM EST) Pathologist [facility] Hemoglobin A1c 4.9 4.3 - 5.6 % [facility] Comment: Reference Range: 4.3 - [...] Mellitus, Diabetes Care 2013; 36: Suppl. 1, S67-74 Estimated Average Glucose 94 mg/dL [facility] Comment: eAG equivalents for HbA1c [...] into estimated average glucose values. ??Diabetes Care 2008:31(8):4984-0289. Blood 04/22/2022 3:22 PM EST 04/22/2022 3:29 PM EST Narrative Resulting Agency Comment Spec In Lab Samantha Whalen MD CHEMISTRY ORDERABLE S [facility] [place] [address] * Hepatitis C RNA, quantitative, PCR (04/22/2022 3:22 PM EST) HCV Viral Load <12 IU/mL [facility] HCV Viral Load Result: <12 IU/mL (Target Not Detected) Indication for Study: Hepatitis C Infection Analysis: The [employer] International[employer] m HCV assay is an in vitro reverse transcriptase polymerase chain reaction (RT-PCR)for the quantification of hepatitis C viral (HCV) RNA in human serum or plasma (EDTA) from HCV-infected individuals. Sample: plasma/serum Method: Dockery Alinity m HCV Assay Linear Range: 12 IU/mL - 100,000,000IU/mL Note: The [employer] Alinity HCV Assay has been approved by the U.S. Food and Drug Administration. [facility] Comment: [VERIFIED DATE]04.23.22 Verified By:Nanette Vernon (Electronic Signature) Blood 04/22/2022 3:22 PM EST 04/23/2022 7:13 AM EST Narrative Resulting Agency Comment Spec In Lab Samantha Whalen MD MOLECULAR ORDERABLE S [facility] [place] [address] * Lipid Panel (Reflex Direct LDL) (04/22/2022 3:22 PM EST) Cholesterol, Total 276 mg/dL [facility] Comment: Lower Risk: <200 mg/dL Average Risk: 200-239 mg/dL Higher Risk: >fv=237 mg/dL Triglyceride 178 mg/dL [facility] Comment: Average Risk/Lower Risk: <150 mg/dL Borderline High Risk: 150-199 mg/dL High Risk: 200-499 mg/dL Very High Risk: >cz=348 mg/dL HDL Cholesterol 51 mg/dL [facility] Comment: Males: ?? Higher Risk: <40 mg/dL Females: ?? Higher Risk: <50 mg/dL LDL Cholesterol 189 mg/dL [facility] Comment: Lowest Risk: <100 mg/dL Lower Risk: 100-129 mg/dL Borderline High Risk: 130-159 mg/dL High Risk: 160-189 mg/dL Very High Risk: >ov=270 mg/dL Cholesterol/HDL Ratio 5.4 ratio [facility] Lipid Interpretation See Note [facility] Comment: Lipid management should be guided by a patient? s ASCVD risk, goals and preferences. ACC/AHA Guidelines recommend high intensity statin if clinical ASCVD or LDL greater than or equal to 190 mg/dL. http://Werdsmith.com/YXH-QWG-Qhydvapje Adults aged 40-75 with LDL 70-189 mg/dL should have their 10 year ASCVD risk estimated with the ACC/AHA ASCVD risk director communications http://tools.acc.org/IUTDV-Obfi-Hwcheoctp/ Statin should be discussed if risk greater [...] MD CHEMISTRY ORDERABLE S Performing Organization Address City/State/[facility] Co de Phone Number [facility] [place] [address] * POCT HIV Screen (04/22/2022 2:59 PM EST) POC HIV Non-Reactive POC Control Internal Controls Acceptable Blood 04/22/2022 2:59 PM EST Samantha Whalen MD POINT OF CARE TEST ORDERABLES documented in this encounter Visit Diagnoses Diagnosis Encounter for routine adult health examination without abnormal findings Erythema nodosum documented in this encounter Care Teams Whiskey Regauger Relationship Specialty Start Date End Date Alfreda Molina MD PCP - General Pediatrics 11/30/20 12/04/22 documented as of this encounter
--- OUTSIDE RECORDS SUMMARY | 2024-07-29 00:25 | XMS_ITS | Encounter Summary ---
Author Organization [facility] [place] [address] Care Team Providers Care Acetone Button Paster Name Role Phone Alfreda Molina MD Primary Care Provider Vicky vailable Encounter Details Date Type Department Care Team (Late st Contact Info) Description 07/09/2021 [facility] at [facility] [address] [facility] [place] [address] Cande Lindo, DINKEY ENGINE FIRER/FIREMAN Social History Tobacco Use Types Packs/Day Years Used Date Smoking Tobacco: Never Smokeless Tobacco: Never Comments:no one smokes at [facility] Alcohol Use Standard Drinks/Week Comments No [...] Description 08/08/2024 9:00 AM EST Appointment [facility] [address] [phone] Umu Saucedo RN 08/15/2024 10:45 AM EST TH Visit (TeleHealth) Obstetrics [place] [phone] Dara Kelley MD [facility] OBSTETRICS [place] [address] 11/25/2024 Hospital [place] [phone] Dara Gonzalez MD [facility] OBSTETRICS [place] [address] 07/12/2025 1:40 PM EST Office Visit Ophthalmology at [address] Bina Agrawal OD [facility] [place] [address] documented as of this encounter Visit Diagnoses Not on filedocumented in this encounter Care Teams Acetone Button Paster Relationship Specialty Start Date End Date Alfreda Molina MD PCP - General Pediatrics 11/30/20 12/04/22 documented as of this encounter
--- OUTSIDE RECORDS SUMMARY | 2024-07-29 00:25 | XMS_ITS | Encounter Summary ---
Author Organization [facility] Address [facility] [place] [address] Care Team Providers Care Mexican Food Machine Tender Name Role Phone Alfreda Molina MD Primary Care Provider Vicky vailable Reason for Visit * Reason Comments Dry Eye Encounter Details Date Type Department Care Team (Late st Contact Info) Description 03/20/2022 1:20 PM EDT Office [place] [address] Bina Agrawal, JONELLE [facility] [place] [place] [address] Emmetropia; Dry eyes, bilateral Social History Tobacco Use Types Packs/Day Years Used Date Smoking Tobacco: Never Smokeless Tobacco: Never Comments:no one smokes at [facility] Alcohol Use Standard Drinks/Week Comments No 0 (1 standard drink = 0.6 oz pur e alcohol) Sex and Gender Information Value Date Recorded Sex Assigned at Female 07/24/2023 9:35 AM EST Gender Identity Female 07/24/2023 9:35 AM EST Sexual Orientation Straight 07/24/2023 9: 35 AM EST documented as of this encounter Patient Instructions * Patient Instructions* Bina Agrawal, OD - 03/20/2022 1:20 PM EDT For dry eye, use AM and PM PRESERVATIVE FREE drops noted below 4 to 6 times per day. Do NOT use ???Visine or anything that says ???gets the red out?? . AM Drops (Use 4-6 times per day) - DAYTIME DROPS TheraTears Refresh GenTeal Systane PM Drops (Use once at night in both eyes before you go to bed) - NIGHT-TIME DROPS Refresh PM Systane Gel GenTeal Gel documented in this encounter Progress Notes * Bina Agrawal, OD - 03/20/2022 1:20 PM EDT Encounter Diagnoses Name Primary? Emmetropia ??? Dry eyes, bilateral Ely Mahmood is a 17 y.o. with the following ophthalmic problems: Assessment and Plan: Dilated ocular health unremarkable - Monitor at [facility] Dry Eye OU contributing to h/o intermittent blur. - Ed that intermittent blurry vision can be related to dry eye with extended screen time . - Recommend frequent breaks from accommodative activities like reading or screens, with relaxation of focus every 15-20 minutes. - Advised PF AT's Refresh, Systane or Thera Tears QID-PRN OU & Refesh PM wen QHS OU. Emmetropia OU - Rx not indicated - Findings and concerns discussed with Ely and she and grandmother expressed understanding. -Upon Return [facility] in 1 year, sooner with changes in sx/vision. documented in this encounter Plan of Treatment Upcoming Encounters Date Type Department Care Team (Late st Contact Info) Description 08/08/2024 9:00 AM EST Appointment [facility] Strong [address] [phone] Umu Saucedo RN 08/15/2024 10:45 AM EST TH Visit (TeleHealth) Obstetrics [place] [address] Draa Kelley MD [facility] DR OBST[place] [address] 11/25/2024 Hospital En[place] [phone] Dara Gonzalez MD [facility] [place] [address] 07/12/2025 1:40 PM EST Office [place] [phone] Bina Agrawal OD [facility] [place] [address] documented as of this encounter Visit Diagnoses Diagnosis Emmetropia Screening for other eye conditions Dry eyes, bilateral Tear film insufficiency, unspecified documented in this encounter Care Teams Mexican Food Machine Tender Relationship Specialty Start Date End Date Alfreda Molina MD PCP - General Pediatrics 11/30/20 12/04/22 documented as of this encounter
--- OUTSIDE RECORDS SUMMARY | 2024-07-29 00:25 | XMS_ITS | Encounter Summary ---
Author Organization [facility] Address [facility] [place] [address] Care Team Providers Care Roller Skate Assembler Name Role Phone Alfreda Molina MD Primary Care Provider Vicky vailable Reason for Visit * Reason Comments Follow-up Encounter Details Date Type Department Care Team (Late st Contact Info) Description 02/24/2022 8:30 AM EDT Office Visit [facility] at [address] [place] [address] Edilma Patel PA [address] OBSTETRICS [place] [address] Vulvar lesion Social History Tobacco Use Types Packs/Day Years Used Date Smoking Tobacco: Never Smokeless Tobacco: Never Comments:no one smokes at [facility] Alcohol Use Standard Drinks/Week Comments No 0 (1 standard drink = 0.6 oz pur e alcohol) Sex and Gender Information Value Date Recorded Sex Assigned at Female 07/24/2023 9:35 AM EST Gender Identity Female 07/24/2023 9:35 AM EST Sexual Orientation Straight 07/24/2023 9: 35 AM EST documented as of this encounter Last Filed Vital Signs Vital Sign Reading Time Taken Comments Blood Pressure 106/76 02/24/2022 8:20 AM EDT Pulse 80 02/24/2022 8:20 AM EDT Temperature 37 ??C (98.6 ??F) 02/24/2022 8:20 AM EDT Respiratory Rate 14 02/24/2022 8:20 AM EDT Oxygen Saturation 98% 02/24/2022 8:20 AM EDT Inhaled Oxygen Concentration - - Weight 58.5 kg (129 lb) 02/24/2022 8:20 AM EDT Height 151 cm (4' 11.45) 02/24/2022 8:20 AM EDT Body Mass Index 25.66 02/24/2022 8:20 AM EDT Body Mass Index Percentile 84.75% 02/24/2022 8:2 0 AM EDT [facility]: [facility] (Girls, 2- 20 Years) documented in this encounter Progress Notes * Edilma Patel PA - 02/24/2022 8:30 AM EDT Chief Complaint: Chief Complaint Patient presents with ??? Follow-up Subjective: HPI: Ely Mahmood is a 17 y.o. female presenting to the [facility] with the following concerns: follow up labial sores. She was last seen on 02/11/2022 with multiple painful ulcerated lesions on labia. Also had history of fever x 3 days and body aches. Lesions c/w with HSV and she was started on valacyclovir 1000 mg BID x 10 days. Since then she has had complete resolution of labial sores. Denies any new sores, abnormal discharge, pelvic pain, dysuria. 02/11/2022 HSV 1 and 2 PCR negative 02/14/2022 HSV 1 and 2 IgG negative ROS: Review of Systems Pertinent Past medical [...] to Visit Medication Sig Dispense Refill ??? albuteroL 90 mcg/actuation HFA Aerosol Inhaler Inhale 2 puffs into the lungs every 4 hours as needed for Wheezing. Use with spacer 1 each 5 ??? sertraline (Zoloft) 25 mg Tablet Take 0.5 tablets by mouth daily for 14 days, THEN 1 tablet daily for 21 days. 28 tablet 0 ??? etonogestreL-ethinyl estradioL (NuvaRing) 0.12-0.015 mg/[address] 1 each vaginally every28 days. Insert vaginally and leave in place for 3 consecutive weeks, then remove for 1 week. 3 each 3 ??? OPTICHAMBER [facility] Spacer ??? calcium carbonate (TUMS) 200 mg calcium (500 mg) Tablet, Chewable Take 1 tablet by mouth as needed. No current facility-administered medications on file prior to visit. Allergies Allergen Reactions ??? Band-Aid [Adhesive Bandage] Rash Fabric band-aids Objective: VS: BP 106/76 Pulse 80 Temp 37 ??C (98.6 ??F) Resp 14 Ht 151 cm (4' 11.45) Wt 58.5 kg (129 lb) LMP 02/19/2022 (Exact Date) SpO2 98% BMI 25.66 kg/m?? Physical Exam Constitutional: Appearance: Normal appearance. She is normal weight. Pulmonary: Effort: Pulmonary effort is normal. Psychiatric: Mood and Affect: Mood normal. Behavior: Behavior normal. Assessment and Plan: Ely Mahmood is a 17 y.o. female with: 1) hx of labial sores Ely presented with ulcerated labial sores following fever and body aches, consistent with primary HSV infection. HSV PCR was negative and serum HSV IgG also negative. Given that she had full resolution of symptoms within a week of beginning medication, this would suggest it was indeed HSV infection. Aphthous ulcers also on the differential. Reviewed that it can take up to 3 mos after exposure todevelop antibodies. At this point she declines daily suppressive therapy. If she has recurrence of labial sores will return to the office for testing. Will repeat serum IgG in 3-6 mos.and then discuss any further treatment. Ely was seen today for follow-up . Diagnoses and all orders for this visit: Vulvar lesion - HSV 1 and 2 IgG Antibodies; Future FOLLOW UP: Return if symptoms worsen or fail to improve. ABIGAIL Correa 02/24/2022 documented in this encounter Plan of Treatment Upcoming Encounters Date Type Department Care Team (Late st Contact Info) Description 08/08/2024 9:00 AM EST Appointment [address] [phone] Umu Saucedo RN 08/15/2024 10:45 AM EST Visit (TeleHealth) Obstetrics [place] [phone] Dara Kelley MD [facility] OBSTETRICS [place] [address] 11/25/2024 Hospital Encounter [place] [phone] Dara Gonzalez MD [facility] OBSTETRICS [place] [address] 07/12/2025 1:40 PM EST Office Visit [place] [address] Bina Agrawal, JONELLE [facility] [place] [address] documented as of this encounter Results * HSV 1 and 2 IgG Antibodies (06/23/2022 9:31 AM EST) HSV Type 1 Ab, IgG Negative Negative [facility] HSV Type 2 Ab, IgG Negative Negative [facility] Blood 06/23/2022 9:31 AM EST 06/23/2022 10:56 AM EST Narrative Resulting Agency Comment Spec In Lab Earle Cade MD IMMUNOLOGY ORDERABL ES [facility] [address] documented in this encounter Visit Diagnoses Diagnosis Vulvar lesion Other specified noninflammatory disorder of vulva and perineum documented in this encounter Care Teams Roller Skate Assembler Relationship Specialty Start Date End Date Alfreda Molina MD PCP - General Pediatrics 11/30/20 12/04/22 documented as of this encounter
--- OUTSIDE RECORDS SUMMARY | 2024-07-29 00:25 | XMS_ITS | Encounter Summary ---
Author Organization [facility] Address [facility] [place] [address] Care Team Providers Care Cinder Pit Crane Operator Name Role Phone Alfreda Molina MD Primary Care Provider Vicky vailable Encounter Details Date Type Department Care Team (Late st Contact Info) Description 02/19/2022 E-[place] [address] Patricio Prince MD [facility] [place] [address] Subclinical hypothyroidism Social History Tobacco Use Types Packs/Day Years Used Date Smoking Tobacco: Never Smokeless Tobacco: Never Comments:no one smokes at [facility] Alcohol Use Standard Drinks/Week Comments No 0 (1 standard drink = 0.6 oz pur e alcohol) Sex and Gender Information Value Date Recorded Sex Assigned at Female 07/24/2023 9:35 AM EST Gender Identity Female 07/24/2023 9:35 AM EST Sexual Orientation Straight 07/24/2023 9: 35 AM EST documented as of this encounter Miscellaneous Notes * E-Consult - aPtricio Prince MD - 02/19/2022 9:03 PM EDT Select F2 to choose the appropriate response: Proceed with eConsult 1. Restatement of the question: patient with subclinical hypothyroidism and highly elevated thyroidperoxidase antibodies, guidance requetsed 2. Recommendation(s): The patient has mildly elevated TSH and normal free T4 indicating subclinical hypothyroidism. The total T4 is probably mildly elevated due to the effect of the patient's nuvaring's estrogen content increasing thyroxine binding globulin concentrations. There is no compelling indication to treat if the patient is not having hypothyroid symptoms or trying to conceive, given that the TSH is <10. If patient has symptoms or is trying to conceive I recommend starting low dose levothyroxine (25 or 50 mcg daily) with TSH recheck in 6 weeks. If those conditions are not met, observation could be considered with at least a TSH check n 6-12 months. There is a good chance however with her Highly elevated TPO antibody titers that she will progress to having overt hypothyroidism (elevated TSH with low free T4) in the relatively near future There is no indication to order a thyroid ultrasound unless a concerning nodule/mass was palpated on exam. Given staffing shortages, Endocrinology at [facility] is not currently seeing outpatient consults for hypothyroidism except in special situations such as in the management of thyroid cancer, as most hypothyroidism can be managed in primary care settings. Patricio Prince MD Air Traffic Systems Technicianskiving machine operator Endocrinology Section [facility] This eConsult is focused on the specific [...] Description 08/08/2024 9:00 AM EST Appointment [address] [phone] Umu Saucedo RN 08/15/2024 10:45 AM EST TH Visit (TeleHealth) Obstetrics and Gynecology at [place] [phone] Dara Kelley MD [facility] [place] [address] 11/25/2024 Hospital Encounter Birthing [place] [phone] Dara Gonzalez MD [facility] [place] [address] 07/12/2025 1:40 PM EST Office [place] [address] Bina Agrawal OD [facility] [place] [address] documented as of this encounter Visit Diagnoses Diagnosis Subclinical hypothyroidism Other specified acquired hypothyroidism documented in this encounter Care Teams Cinder Pit Crane Operator Relationship Specialty Start Date End Date Alfreda Molina MD PCP - General Pediatrics 11/30/20 12/04/22 documented as of this encounter
--- OUTSIDE RECORDS SUMMARY | 2024-07-29 00:25 | XMS_ITS | Encounter Summary ---
Author Organization Count Includes [facility] Address [facility] [place] [address] Care Team Providers Care Process Improvement Analyst Name Role Phone Alfreda Molina MD Primary Care Provider Vicky vailable Encounter Details Date Type Department Care Team (Late st Contact Info) Description 04/08/2022 8:30 AM EDT Office Visit [facility] at [address] [place] [phone] Edilma Patel, PA [address] OBSTETRICS [place] [address] Encounter for initial prescription of injectable contraceptive; Vulvar lesion Social History Tobacco Use Types Packs/Day Years Used Date Smoking Tobacco: Never Smokeless Tobacco: Never Comments:no one smokes at [facility] Alcohol Use Standard Drinks/Week Comments [...] Sign Reading Time Taken Comments Blood Pressure 118/54 04/08/2022 8:08 AM EDT Pulse 53 04/08/2022 8:08 AM EDT Temperature - - Respiratory Rate - - Oxygen Saturation 98% 04/08/2022 8:08 AM EDT Inhaled Oxygen Concentration - - Weight 57 kg (125 lb 9.6 oz) 04/08/2022 8:08 AM EDT Height 151 cm (4' 11.45) 04/08/2022 8:08 AM EDT Body Mass Index 24.99 04/08/2022 8:08 AM EDT Body Mass Index Percentile 81.49% 04/08/2022 8:0 8 AM EDT Growth Chart: [facility] (Girls, 2- 20 Years) documented in this encounter Progress Notes * Edilma Patel PA - 04/08/2022 8:30 AM EDT CC: No chief complaint on file. Subjective: HPI: Ely Mahmood is a 17 y.o. @GENDER@ presenting [facility] with: ? Labial sore HPI Noticed a bump on left inner labia 3 days ago, not really tender - only feels irritated when it's dry / with friction. Does note it occurred after intercourse where she felt lack of lubrication. Denies abnormal discharge, vulvar irritation/itching, pelvic pain, dysuria. Also wants to discuss BC. Currently using NuvaRing but gets occasional pain with intercourse with it. Also struggles with remembering to replace ring on time. In the past has used OCP - which was ok, then tried patch - irritated by adhesive. Had Nexplanon for over a year, d/c due to irregular bleeding. Has used Depo-Provera in the past, just didn't like getting injections, but now thinking it might be easier for her. Would like something she does not have to regularly remember to take / change. Pertinent Past Medical History: Seen 02/11/2022 with multiple painful ulcerated lesions on labia. Also had history of fever x 3 daysand body aches. 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 02/11/2022 HSV 1 and 2 PCR negative 02/14/2022 HSV 1 and 2 IgG negative ROS: Review of Systems Objective: VS: BP 118/54 Pulse (!) 53 Ht 151 cm (4' 11.45) Wt 57 kg (125 lb 9.6 oz) LMP 03/20/2022 (Exact Date) SpO2 98% BMI 24.99 kg/m?? Physical Exam Normal-appearing external genitalia. Normal hair pattern for age. Normal- appearing clitoral lee and clitoris. Normal-appearing labia majora, Bartholin glands not enlarged. On lower left labia 1-2 mmsmall tear or ulceration, only very mildly tender. Normal-appearing right labia minora. Assessment and Plan: Diagnoses and all orders for this visit: Encounter for initial prescription of injectable contraceptive - medroxyPROGESTERone (Depo-PROVERA) injection 150 mg - POCT urine Vulvar lesion - HSV 1 and 2 PCR Ely is a 17 y.o. female with: 1) vulvar lesion 2) need for contraception Small tear or ulceration on left inner labia that looks consistent with small abrasion likely during intercourse. HSV PCR sent to rule out mild recurrent outbreak. We discussed using lubricant duringintercourse, sitz baths for comfort. We reviewed options for control, including oral contraceptive pills, Depo- Provera, condoms, long acting reversible contraceptive methods including hormonal and nonhormonal IUDs and Nexplanon. She would like to try Depo-Provera again, first dose administered today. FOLLOWUP: as needed ABIGAIL Correa 04/08/2022 documented in this encounter Plan of Treatment Upcoming Encounters Date Type Department Care Team (Late st Contact Info) Description 08/08/2024 9:00 AM EST Appointment [facility] Strong [address] [phone] Umu Saucedo RN 08/15/2024 10:45 AM EST TH Visit (TeleHealth) Obstetrics [place] [phone] Dara Kelley MD [facility] OBSTETRICS [place] [address] 11/25/2024 Hospital Encounter Birthing [facility] [place] [phone] Dara Gonzalez MD [facility] OBSTETR[place] [address] 07/12/2025 1:40 PM EST Office [place] [phone] Bina Agrawal OD [facility] [place] [address] documented as of this encounter Procedures Procedure Name Priority Date/Time Associated Diagnosis Comments HC HERPES SIMPLEX VIRUS 1/2 BY PCR Routine 04/08/2022 1:04 PM EDT Vulvar lesion POCT URINE Routine 04/08/2022 Encounter for initial prescription of injectable contraceptive documented in this encounter Results * HSV 1 and 2 PCR (04/08/2022 1:04 PM EDT) HSV-1 PCR Not Detected Not Detected [facility] HSV-2 PCR Not Detected Not Detected [facility] HSV Source Vulval [facility] Comment: The only FDA approved specimen types for this assay are CSF and genital lesions. Vulval 04/08/2022 1:04 PM EDT 04/08/2022 4:01 PM EDT Comment:Specimen Type:->Vulv al Narrative Resulting Agency Comment Spec In Lab Earle Cade MD MICROBIOLOGY - GENE RAL ORDERABLES [facility] [place] [address] * POCT urine (04/08/2022) POC Urine HCG Negative POC Control Internal Controls Acceptable Earle Cade MD POINT OF CARE TEST ORDERABLES documented in this encounter Visit Diagnoses Diagnosis Encounter for initial prescription of injectable contraceptive General counseling for initiation of other contraceptive measures Vulvar lesion Other specified noninflammatory disorder of vulva and perineum documented in this encounter Administered Medications Inactive Administered Medications - up to 3 most recent administrations Medication Order MAR Action Action Date Dose Rate Site medroxyPROGESTERone (Depo-PROVERA) injection 150 mg 150 mg, Intramuscular, ONCE, 1 dose, On Thu04/08/22 at 0930, Routine, Is this medication being ordered for contraception? This question is required for billing. Yes Given 04/08/2022 9:33 AM EDT 150 mg L eft Gluteal documented in this encounter Care Teams Process Improvement Analyst Relationship Specialty Start Date End Date Alfreda Molina MD PCP - General Pediatrics 11/30/20 12/04/22 documented as of this encounter
--- OUTSIDE RECORDS SUMMARY | 2024-07-29 00:25 | XMS_ITS | Encounter Summary ---
Author Organization [facility] Address [facility] [place] [address] Care Team Providers Care Street Superintendent Name Role Phone Alfreda Molina MD Primary Care Provider Vicky vailable Reason for Visit * Reason Comments Wrist Pain Foot Pain Encounter Details Date Type Department Care Team (Late st Contact Info) Description 03/06/2022 12:54 AM EDT - 03/06/2022 2:49 AM EDT Emergency Emergency Services at [address] [place] [address] uYlissa Che MD [facility] [place] [address] Pain in left wrist; Right foot pain; Erythema nodosum Discharge Disposition: Home Social History Tobacco Use Types Packs/Day Years Used Date Smoking Tobacco: Never Smokeless Tobacco: Never Comments:no one smokes at [facility] Alcohol Use Standard Drinks/Week Comments No 0 [...] Reading Time Taken Comments Blood Pressure 126/60 03/06/2022 2:38 AM EDT Pulse 80 03/06/2022 2:38 AM EDT Temperature 36.9 ??C (98.5 ??F) 03/06/2022 12:47 AM E DT Respiratory Rate 16 03/06/2022 2:38 AM EDT Oxygen Saturation 99% 03/06/2022 2:38 AM EDT Inhaled Oxygen Concentration - - Weight 58.5 kg (129 lb) 03/06/2022 12:47 AM EDT Height - - Body Mass Index 25.66 02/24/2022 8:20 AM EDT Body Mass Index Percentile 84.70% 03/06/2022 12: 47 AM EDT Growth Chart: [facility] (Girls, 2- 20 Years) documented in this encounter Discharge Instructions * Discharge Instructions* Yulissa Che MD - 03/06/2022 2:26 AM EDT You were seen in the emergency department for several days of left wrist and right ankle pain. You received x-rays which did not show any broken bone or abnormal alignment. Because you have had a recent viral infection, fevers and nodules and bruising on your legs you hadblood work to assess for signs of an inflammatory process and any other trigger besides the viral infection. Your blood results do show signs of systemic inflammation. You do not have any abnormal blood count, anemia or platelets. You have normal electrolytes, kidney function. You had a test for the virus mononucleosis which was negative. You have no signs of abnormalities in your urine. In addition tests were sent for other inflammatory markers as well as tickborne illness such as Lyme disease. These tests will not come back for several days -you will be called for any significant abnormalities however it is also important that you schedule a follow-up with your primary care physician as soon as possible to discuss any further work-up for your symptoms. In the meantime you may continue to take ibuprofen, you may take 3 tablets, which is 600 mg, with food, up to 3 times a day as needed for pain. This does not significantly improve your symptoms you may also use Tylenol and the prescribed lidocaine patches as needed for pain. Return or seek care immediately if you develop any worsening severe pain, bleeding, fevers or anything else you find concerning documented in this encounter Medications at Time of Discharge Medication Sig Dispensed Refills Start Date End Date lidocaine (Lidoderm) 5% Adhesive Patch, Medicated Change 3 patches on the skin every 12 hours. Apply patch to painful area, keep on for 12 hours, then remove for 12 hours before placing the next patch 15 patch 03/06/2022 10/07/2022 doxycycline (VIBRAMYCIN) 100 mg Capsule Take 1 capsule by mouth 2 times daily for 28 days. 56 capsule 03/06/2022 03/20/2022 albuteroL 90 mcg/actuation HFA Aerosol Inhaler Inhale 2 puffs into the lungs every 4 hours as needed for Wheezing. Use with spacer 1 each 5 01/23/2022 05/29/2023 etonogestreL-ethinyl estradioL (NuvaRing) 0.12-0.015 mg/24 hr RingIndications:Encoun ter for BCP ( control pills) initial prescription Place 1 each vaginally every 28 days. Insert vaginally and leave in place for 3 consecutive weeks, then remove for 1 week. 3 each 3 10/04/2021 04/08/2022 [facility] Spacer 09/07/2018 02/03/2023 calcium carbonate (TUMS) 200 mg calcium (500 mg) Tablet, Chewable Take 1 tablet by mouth as needed. 08/20/2023 documented as of this encounter ED Notes * Yulissa Che MD - 03/06/2022 1:23 AM EDT Images from the original note were not included. ED Attending Note HPI: Ely Mahmood is a [id number] 17 y.o. female who presents to the Emergency Department with a 1 week history of left wrist pain and a 4-day history of right ankle pain. She states thatpain has been mild since beginning however this evening she woke up at 11 PM approximately an hour and a half prior to presentation with significantly worsening pain at both sites. Took 2 tabs of Tylenol and 2 tabs ibuprofen with significant improvement in symptoms. Denies any new or increased activities, no falls injuries or trauma. States that prior to the foot and ankle pain she was standing up on her tiptoes and heard a crack and subsequently had some pain. Able to ambulate without difficulty. Some pain with using left wrist, somewhat worse with movement. No numbness, paresthesias or weakness. No swelling or redness of joints. In addition she noted sensation of fever and chills when she awoke, took her temperature and it wasnoted to be 100.7. 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 She also notes that she has had prior intermittent chest pains from 02/15-02/17 now entirely resolved for the past 2 weeks, anterior, nonpositional, nonexertional, nonpleuritic without associated shortness of breath. She also notes a 10-day to 2-week history of possible easy bruising and nodules on her legs. Statesthere initially red and tender and now have become bruised in appearance, now mild tenderness but improving No other bleeding, dark stools, gum bleeding, hematemesis or hematuria or dark urine. No other recent infections. No tick bites. No travel. No other rashes or lesions. Review of Systems Pertinent positives and negatives are included in the HPI, otherwise at least ten systems were reviewed and negative. Past Medical and Surgical Histories, Social History, Medications, Allergies were reviewed in the chart. Vitals: ED Triage Vitals [03/06/22 0047] BP: 135/70 Heart Rate: (!) 111 Resp: 18 Temp: 36.9 ??C (98.5 ??F) Temp src: Oral SpO2: 98 % O2 Device: RA O2 Flow Rate (L/min): 0 L/min Physical Exam Musculoskeletal: Right wrist: Normal. Left wrist: Tenderness and bony tenderness present. No swelling, deformity, effusion, snuff box tenderness or crepitus. Normal range of motion. Normal pulse. Arms: Right ankle: Normal. Left ankle: Normal. Right foot: Normal range of motion and normal capillary refill. Tenderness present. No swelling, deformity or bony tenderness. Normal pulse. Left foot: Normal. Legs: Gen: well appearing, NAD, nontoxic, afebrile, alert and oriented appropriate and interactive HENT: atraumatic, OP clear, no lesions, no lymphadenopathy MMM, normal sclera, extraocular movements intact, pupils equal round reactive to light Pulm: CTA bilaterally, no respiratory distress, chest wall nontender Card: RRR, regular radial pulse 2+ symmetric bilateral, 2+ DP symmetric in bilateral, no murmurs, Abd: soft, nontender, nondistended Skin: warm and dry, right lower leg with 2 subcutaneous tender nodules with overlying ecchymosis noerythema Neuro: speech fluent, no obvious deficit MS: No obvious deformity Psych: Normal mood ED Course: I have reviewed labs and imaging, images and available reports, and they are significant for: XR Wrist 3 Views Left (Results Pending) XR Foot Min 3 views Right (Generic) (Results Pending) XR Ankle Min 3 views Right (Generic) (Results Pending) ED Course as of 03/06/22 0222 Jania Mar 06, 2022 0204 CBC (with Diff)(!) CBC with trace elevated WBC and mild neutrophil predominant 0209 Urinalysis with reflex Culture(!) UA without blood or protein 0210 Sedimentation rate(!) ESR minimally elevated at 30 0220 Urinalysis Microscopic Exam(!) Urinalysis microscopy suggestive of contamination with squame epithelial cells whites and few bacteria in the setting of asymptomatic cannot 0220 CRP, acute inflammation(!) CRP elevated at 39 0220 Comprehensive metabolic panel (non-fasting)(!) CMP with normal electrolytes, normal renal function, normal LFTs except for minimally elevated ALT,nonspecific 0221 FINDINGS: Ankle: The ankle mortise and talar dome are intact and without acute fracture or dislocation. No ankle joint effusion. Soft tissue swelling about the lateral malleolus. ?? Foot: Normal alignment of the digits of the right foot without acute fracture or dislocation. Specifically, no fracture of the base of the fifth metatarsal. Joint spaces are preserved. No focal soft tissue swelling. ?? IMPRESSION 1. No acute fracture or dislocation of the right ankle or foot. 2. Soft tissue swelling about the lateral malleolus may represent ligament injury. 0222 IMPRESSION No acute fracture or dislocation of the left wrist. 0222 Mononucleosis Screen ([facility]) Monoscreen negative Procedures Assessment and Plan: 17 y.o. female with atraumatic left wrist and right foot pain and tenderness without swelling, erythema or evidence of effusion in the setting of recent likely viral infection as well as new bruising/lesions and self-limited now long resolved chest pain. Joint pain of unclear etiology doubt traumatic injury by history. Cannot exclude reactive arthritishowever less likely given no erythema or swelling but must consider given recent viral infection and atraumatic multiple joint symptoms. Ecchymosis and nodules most suggestive of resolving erythema nodosum likely by timing secondary to HSV infection however HSV is not a common trigger for erythema nodosum. No ulceration or severe lesions to suggest Doubt by symptoms but must rule out TTP or HUS. Will screen for causes of erythema nodosum such as mononucleosis given fevers. Will send inflammatory markers, tick panel, autoimmune screening given joint pain and skin lesions. Plan for left wrist and right foot x-ray, CBC CMP UA, ESR and CRP, ASO titer, tick panel, JOEL. Given recent Tylenol and ibuprofen we will treat pain with lidocaine patches x3. Labs significant for mild to moderate elevated inflammatory markers. Normal renal function grossly normal liver function except for minimally elevated ALT. Hendry negative. Urinalysis without protein or blood. Tick panel and JOEL pending 2:40 AM Prior to discharge the patient showed me photos of the initial lower extremity erythematous lesions. Initial lesion on right calf, possibly suggestive of erythema migrans with slight targetoid appearance. Other erythematous lesions more suggestive of erythema nodosum This in the setting of fevers and joint pain make Lyme arthritis significantly more concerning. Will provide prescription for doxycycline to Qnary. With the plan that she will await Lyme and tick panel results. If positive she will begin to take a course of doxycycline if negative and symptoms improve she will not. If she has any concerns regarding interpretation of results she will follow-up with her primary care physician as soon as possible. Patient stable for discharge with plan for urgent PCP follow-up to further discuss care plan. Pain control with ibuprofen, Tylenol and lidocaine patch. Understands indications for return. Did this case involve critical care? No Yulissa Che MD 03/06/22 0229 Yulissa Che MD 03/06/22 0243 documented in this encounter Miscellaneous Notes * ED Triage - Tanya Macias RN - 03/06/2022 12:54 AM EDT Ambulant female patient who reports left wrist pain since sat and right foot pain since Thursday.She denies known injury. She reports she had fever at 11 pm and she took tylenol and ibuprofen. BP: 135/70, Heart Rate: (!) 111, Temp: 36.9 ??C (98.5 ??F), Temp src: Oral, Resp: 18, Height: 151 cm (4' 11.45), Weight - Scale: 58.5 kg (129 lb), SpO2: 98 %, O2 Flow Rate (L/min): 0 L/min, O2 Device: RA, BMI (Calculated): 25.66 On assessment,no obvious deformity noted,has good sensation and radial and dorsalis pedis palpable respectively. HPI (Adult) Stated Reason for Visit: i have left wrist and right foot pain since sat.no injury. History Obtained From: patient Precipitating Event(s): unknown Onset of Symptoms: sudden Duration (Days): 5 Medications/Treatments Prior to Arrival: other (see comments) (took tylenol and ibuprofen at 11pm) documented in this encounter Plan of Treatment Upcoming Encounters Date Type Department Care Team (Late st Contact Info) Description 08/08/2024 9:00 AM EST Appointment [address] [address] Umu Saucedo RN 08/15/2024 10:45 AM EST TH Visit (TeleHealth) Obstetrics [place] [phone] Dara Kelley MD [facility] OBSTETRICS [facility] [place] [address] 11/25/2024 [place] [phone] Dara Gonzalez MD [facility] [place] [address] 07/12/2025 1:40 PM EST Office [place] [address] Bina Agrawal, JONELLE [facility] [place] [address] documented as of this encounter Procedures Procedure Name Priority Date/Time Associated Diagnosis Comments URINALYSIS MICROSCOPIC EXAM STAT 03/06/2022 1:54 AM EDT URINALYSIS WITH REFLEX CULTURE STAT 03/06/2022 1:54 AM EDT XR WRIST 3 VIEWS LEFT STAT 03/06/2022 1:51 AM EDT XR FOOT MIN 3 VIEWS RIGHT STAT 03/06/2022 1:51 AM EDT XR ANKLE MIN 3 VIEWS RIGHT STAT 03/06/2022 1:51 AM EDT HC TICK BORNE DISEASE, PCR STAT 03/06/2022 1:34 AM EDT HC C-REACTIVE PROTEIN STAT 03/06/2022 1:34 AM EDT HC LYME DISEASE, GERALD Routine 1:34 AM EDT HEMOGRAM STAT 03/06/2022 1:34 AM EDT DIFFERENTIAL, AUTOMATED STAT 03/06/2022 1:34 AM EDT HC INFECTIOUS MONO SCREEN, SERUM STAT 03/06/2022 1:34 AM EDT HC ESR-SEDIMENTATION RATE, BLOOD STAT 03/06/2022 1:34 AM EDT HC CBC,PLT & AUTO DIFF STAT 1:34 AM EDT HC PCH ANATITRE (ANDPATTERN) Routine 03/06/2022 1:34 AM EDT COMPREHENSIVE METABOLIC PANEL STAT 03/06/2022 1:34 AM EDT documented in this encounter Results * (ABNORMAL) Urinalysis Microscopic Exam (03/06/2022 1:54 AM EDT) RBC, Urine 2 0 - 4 /HPF [facility] WBC, Urine 8(H) 0 - 5 /HPF [facility] Bacteria, Urine Few(A) None /HPF [facility] Squamous Epithelial Cells Raw Data, Urine 5(H) <=4 /HPF [facility] Amorphous Crystals, Urine Few(A) None /HPF [facility] Clean Catch Urine 03/06/2022 1:54 AM EDT 03/06/2022 2:01 AM EDT Narrative Resulting Agency Comment Spec In Lab Yulissa Che MD URINE ORDERABLES Performing Organization Address City/State/[facility] Co de Phone Number LABORATORY [address] [place] [phone] * (ABNORMAL) Urinalysis with reflex Culture (03/06/2022 1:54 AM EDT) Glucose, Urine Dipstick Negative Negative mg/dL [facility] Protein, Urine Dipstick Negative Negative mg/dL [facility] Bilirubin, Urine Dipstick Negative Negative mg/dL [facility] Comment: Clinical correlation required for positive Urine Bilirubin results as false positive may occur with some drugs and drug related products. If a false positive is suspected a serum total bilirubin should be considered if clinically indicated. Urobilinogen, Urine Dipstick Normal Normal mg/dL LAB[facility]ORY pH, Urn (dipstick) 7.0 5.0 - 8.0 LAB[facility] Blood, Urine Dipstick Negative Negative mg/dL [facility] Ketone, Urine Dipstick Negative Negative mg/dL [facility] Nitrite, Urine Dipstick Negative Negative [facility] Leukocytes, Urine Dipstick Trace(A) Negative mcL [facility] Appearance, Urine Dipstick Cloudy(A) Clear [facility] Specific [place] Urine Automated 1.015 1.006 - 1.030 [facility] Color, Urine Dipstick Yellow [facility] Reflex to Culture No [facility] Clean Catch Urine 03/06/2022 1:54 AM EDT 03/06/2022 2:01 AM EDT Narrative Resulting Agency Comment Spec In Lab Yulissa Che MD URINE ORDERABLES [facility] [address] [place] [address] * XR Ankle Min 3 views Right [...] who have questions please contact the health healthcare administrative assistant that requested your imaging first. ? Narrative [...] patients who have questions please contactthe health healthcare administrative assistant that requested your imaging first. Yulissa Che [...] who have questions please contact the health healthcare administrative assistant that requested your imaging first. ? Electronically signed by: Raina Hewitt MD, [facility] ([phone]), at 03/06/2022 2:10 AM Narrative 03/06/2022 2:10 AM EDT EXAMINATION: XR [...] patients who have questions please contactthe health healthcare administrative assistant that requested your imaging first. Electronically signed by: Raina Hewitt MD, [facility]([phone]), at 03/06/2022 2:10 AM Yulissa Che MD IMG DX ORDERABLES * [...] who have questions please contact the health healthcare administrative assistant that requested your imaging first. ? Electronically signed by: Raina Hewitt MD, [facility] ([phone]), at 03/06/2022 2:07 AM Narrative 03/06/2022 2:07 AM EDT EXAMINATION: XR [...] patients who have questions please contactthe health healthcare administrative assistant that requested your imaging first. Electronically signed by: Raina Hewitt MD, [facility]([phone]), at 03/06/2022 2:07 AM Yulissa Che MD IMG DX ORDERABLES * (ABNORMAL) Differential, Automated (03/06/2022 1:34 AM EDT) Neutrophil % 81.4 % [facility] Neutrophil Absolute 8.43(H) 1.70 - 6.10 x10(3)/mc L [facility] Lymph % 10.0 % [facility] Lymphocytes Abs 1.0 0.9 - 3.2 x10(3)/mc L [facility] Monocyte % 8.1 % [facility] Monocyte Abs 0.8 0.3 - 0.9 x10(3)/mc L [facility] Eos % 0.1 % [facility] Eosinophils Abs 0.0 0.0 - 0.4 x10(3)/mc L [facility] Basophil % 0.3 % [facility] Baso Absolute 0.0 0.0 - 0.1 x10(3)/mc L [facility] Immature Gran % 0.10 % [facility] Comment: Immature granulocytes(IG's)percentage and absolute count will include metamyelocytes, myelocytes, and promyelocytes. Blood smears from CBCs yielding IG's will be scanned manually for concordance. If this scan disagrees with the automated IG or if promyelocytes are noted, a manual differential will be performed. Immature Gran Absolute 0.01 0.00 - 0.04 x10(3)/mc L [facility] Blood 03/06/2022 1:34 AM EDT 03/06/2022 1:49 AM EDT Narrative Resulting Agency Comment Spec In Lab Yulissa Che MD HEMATOLOGY ORDERABLE S Performing Organization Address [facility] Co de Phone Number LABORATORY [address] [place] [address] * (ABNORMAL) Hemogram (03/06/2022 1:34 AM EDT) White Blood Cell 10.4(H) 4.0 - 9.5 x10(3)/mc L [facility] Red Blood Cell 4.49 4.00 - 5.21 x10(6)/mc L [facility] Hemoglobin 12.7 11.7 - 15.5 g/dL [facility] Hematocrit 38.8 35.7 - 45.8 % [facility] Mean Cell Volume 86.4 82.6 - 94.4 fL [facility] Mean Cell Hemoglobin 28.3 27.1 - 32.0 pg [facility] Mean Cell Hemoglobin Concentration 32.7 31.7 - 35.0 g/dL [facility] Platelet 375(H) 145 - 357 x10(3)/mc L [facility] RDW Standard Deviation 41.7 37.0 - 46.0 fL [facility] RDW coefficient of variation 13.0 11.5 - 14.1 % [facility] Mean Platelet Volume 8.8 7.6 - 12.9 fL [facility] Blood 03/06/2022 1:34 AM EDT 03/06/2022 1:49 AM EDT Narrative Resulting Agency Comment Spec In Lab Yulissa Che MD HEMATOLOGY ORDERABLE S Performing Organization Address [facility] Co de Phone Number LABORATORY [address] [place] [address] * Lyme IgG & IgM Antibody (03/06/2022 1:34 AM EDT) Pathologist [facility] Lyme Antibody Neg Neg [facility] Blood 03/06/2022 1:34 AM EDT 03/07/2022 6:12 AM EDT Narrative Resulting Agency Comment Spec In Lab Yulissa Che MD IMMUNOLOGY ORDERABLE S [facility] [place] [address] * Acute Tick Borne Infection Panel (03/06/2022 1:34 AM EDT) Pathologist [place] Anaplasma phagocytophilum PCR Not Detected Not Detected [facility] Comment: INTERPRETATION: A positive result indicates DNA was detected from Anaplasma phagocytophilum. A negative result indicates the absence of any detectable DNA from Anaplasma phagocytophilum. METHODS: This test was performed using multiplex real-time PCR to interrogate DNA isolated from whole blood for the groEL gene found in Anaplasma phagocytophilum. The sensitivity of the assay is approximately 10 genome equivalents per PCR reaction. LIMITATIONS AND DISCLAIMERS: Although unlikely, rare variants (known or unknown), have the potential to interfere with the performance of this test, producing false negative or false positive results. Additionally, it is possible that this test may provide positive results for species closely related to the ones tested for in this assay. When results are not consistent with other clinical observations or test results, additional testing should be considered. This test detects DNA sequences and cannot discriminate between live and organisms. This test was developed and its performance characteristics determined by the [facility] at [facility]. It has not been cleared or approved by the FDA. The laboratory is regulated under CLIA as qualified to perform high-complexity testing. This test is used for clinical purposes. It should not be regarded as investigational or for research. Ehrlichia chaffeensis PCR Not Detected Not Detected [facility] Comment: INTERPRETATION: A positive result indicates DNA was detected from Ehrlichia chaffeensis. A negative result indicates the absence of any detectable DNA from Ehrlichia chaffeensis. METHODS: This test was performed using multiplex real-time PCR to interrogate DNA isolated from whole blood for the 16S rRNA gene found in Ehrlichia chaffeensis. The sensitivity of the assay is approximately 10 genome equivalents per PCR reaction. LIMITATIONS AND DISCLAIMERS: Although unlikely, rare variants (known or unknown), have the potential to interfere with the performance of this test, producing false negative or false positive results. Additionally, it is possible that this test may provide positive results for species closely related to the ones tested for in this assay. When results are not consistent with other clinical observations or test results, additional testing should be considered. This test detects DNA sequences and cannot discriminate between live and organisms. This test was developed and its performance characteristics determined by the [facility] at [facility]. It has not been cleared or approved by the FDA. The laboratory is regulated under CLIA as qualified to perform high-complexity testing. This test is used for clinical purposes. It should not be regarded as investigational or for research. Babesia microti PCR Not Detected Not Detected [facility] Comment: INTERPRETATION: A positive result indicates DNA was detected from Babesia microti. A negative result indicates the absence of any detectable DNA from Babesia microti. METHODS: This test was performed using multiplex real-time PCR to interrogate DNA isolated from whole blood for the 18S rRNA gene found in Babesia microti. The sensitivity of the assay is approximately 10 genome equivalents per PCR reaction. LIMITATIONS AND DISCLAIMERS: Although unlikely, rare variants (known or unknown), have the potential to interfere with the performance of this test, producing false negative or false positive results. Additionally, it is possible that this test may provide positive results for species closely related to the ones tested for in this assay. When results are not consistent with other clinical observations or test results, additional testing should be considered. This test detects DNA sequences and cannot discriminate between live and organisms. This test was developed and its performance characteristics determined by the [facility] at [facility]. It has not been cleared or approved by the FDA. The laboratory is regulated under CLIA as qualified to perform high-complexity testing. This test is used for clinical purposes. It should not be regarded as investigational or for research. Borrelia miyamotoi PCR Not Detected Not Detected [facility] Comment: INTERPRETATION: A positive result indicates DNA was detected from Borrelia miyamotoi. A negative result indicates the absence of any detectable DNA from Borrelia miyamotoi. METHODS: This test was performed using multiplex real-time PCR to interrogate DNA isolated from whole blood for the flaB gene found in Borrelia miyamotoi. The sensitivity of the assay is approximately 10 genome equivalents per PCR reaction. LIMITATIONS AND DISCLAIMERS: Although unlikely, rare variants (known or unknown), have the potential to interfere with the performance of this test, producing false negative or false positive results. Additionally, it is possible that this test may provide positive results for species closely related to the ones tested for in this assay. When results are not consistent with other clinical observations or test results, additional testing should be considered. This test detects DNA sequences and cannot discriminate between live and organisms. This test was developed and its performance characteristics determined by the [facility] at [facility]. It has not been cleared or approved by the FDA. The laboratory is regulated under CLIA as qualified to perform high-complexity testing. This test is used for clinical purposes. It should not be regarded as investigational or for research. Blood 03/06/2022 1:34 AM EDT 03/06/2022 4:55 PM EDT Narrative Resulting Agency Comment Spec In Lab Yulissa Che MD MOLECULAR ORDERABLES [facility] [place] [address] * JEOL (03/06/2022 1:34 AM EDT) [facility] JOEL Ab Screen Test ?Result ? Flag ??Unit ??RefValue Antinuclear Ab, HEp-2 ? <1:80 (Negative) ? <1:80 (Negative) ??Substrate, S ? ADDITIONAL INFORMATION --------- ?Method: Immunofluorescence using HEp-2 cellular substrate. ?Test Performed by: ?[facility] ?[address] [place] [address] ?Bill Board Poster: Sundar Bradley M.D. Ph.D.; CLIA# [id number] [facility] Blood 03/06/2022 1:34 AM EDT 03/06/2022 5:18 PM EDT Narrative Resulting Agency Comment Spec In Lab Yulissa Che MD LAB SEND OUT ORDERAB LES Performing Organization Address [facility] de Phone Number [facility] [address] [place] [address] * Mononucleosis Screen (APD/[facility]) (03/06/2022 1:34 AM EDT) [facility] Signature Mononucleosis Screen Negative Negative opinions.h LABORATORY Comment: Detectable levels of the infectious mononucleosis (IM) heterophile antibody can usually be expected to occur between the sixth and tenth day following the onset of symptoms. The level usually increases through the second or third week of illness and, thereafter, can be expected to persist, gradually declining over a 12-month period. Blood 03/06/2022 1:34 AM EDT 03/06/2022 1:49 AM EDT Narrative Resulting Agency Comment Spec In Lab Yulissa Che MD IMMUNOLOGY ORDERABLE S Performing Organization Address [facility] de Phone Number [facility] [address] [facility] [place] [address] * (ABNORMAL) Comprehensive metabolic panel (non-fasting) (03/06/2022 1:34 AM EDT) Glucose 95 65 - 199 mg/dL [facility] Comment:Diabetes: >=200 mg/d L plus symptoms Blood Urea Nitrogen 12 10 - 20 mg/dL [facility] Creatinine 0.89 0.50 - 0.89 mg/dL [facility] Sodium 138 135 - 145 mmol/L [facility] Potassium 4.0 3.5 - 5.0 mmol/L [facility] Comment: Please note: ??Patients with WBC >100,000 may have falsely elevated Potassium levels. ??For accurate Potassium quantification in these patients send serum separator tube (gold top) for subsequent determinations. ??Contact the Clinical Chemistry Laboratory if there are any questions. Chloride 103 98 - 107 mmol/L [facility] Carbon Dioxide 20(L) 22 - 31 mmol/L [facility] Anion Gap 15 5 - 15 mmol/L [facility] Calcium 10.0 8.5 - 10.5 mg/dL [facility] Protein, Total 8.5(H) 6.1 - 8.0 g/dL [facility] Albumin 4.4 3.2 - 5.2 g/dL [facility] Aspartate Aminotransferase 28 5 - 30 unit/L [facility] Alanine Aminotransferase 44(H) 0 - 25 unit/L [facility] Alkaline Phosphatase 80 45 - 87 unit/L [facility] Bilirubin, Total 0.3 0.2 - 1.3 mg/dL [facility] Est Glomerular Filtration Rate 96 >=60 mL/min/1. 73 m?? [facility] Comment: This patient's estimated GFR was [...] and symptoms in addition to eGFR. Blood 03/06/2022 1:34 AM EDT 03/06/2022 1:49 AM EDT Narrative Resulting Agency Comment Spec In Lab Yulissa Che MD CHEMISTRY ORDERABLES Performing Organization Address [facility] de Phone Number [facility] [address] [place] [address] * (ABNORMAL) CRP, acute inflammation (03/06/2022 1:34 AM EDT) C-Reactive Protein 39.0(H) <=4.9 mg/L [facility] Blood 03/06/2022 1:34 AM EDT 03/06/2022 1:49 AM EDT Narrative Resulting Agency Comment Spec In Lab Yulissa Che MD CHEMISTRY ORDERABLES Performing Organization Address [facility] Phone Number [facility] [address] [place] [phone] * (ABNORMAL) Sedimentation rate (03/06/2022 1:34 AM EDT) Sedimentation Rate Automated 30(H) 0 - 20 mm/hr [facility] Blood 03/06/2022 1:34 AM EDT 03/06/2022 1:49 AM EDT Narrative Resulting Agency Comment Spec In Lab Yulissa Che MD HEMATOLOGY ORDERABLE S Performing Organization Address [facility] Phone Number [facility] [address] [place] [phone] documented in this encounter Visit Diagnoses Diagnosis Pain in left wrist Pain in joint, forearm Right foot pain Pain in limb Erythema nodosum documented in this encounter Administered Medications Inactive Administered Medications - up to 3 most recent administrations Medication Order MAR Action Action Date Dose Rate Site lidocaine (Lidoderm) 5% patch 3 patch 3 patch, Topical (Top), EVERY 24 HOURS, First dose on Jania 03/06/22 at 0130, Until Discontinued, Apply patch(es) for 12 hours, and then remove for 12 hours., Routine Patch Applied 03/06/2022 1:29 AM EDT 3 patches 20-Other (document in comment section) lidocaine (Lidoderm) topical patch REMOVAL Transdermal, EVERY 24 HOURS, First dose on Jania 03/06/22 at 1330, Until Discontinued, Remove lidocaine 5% patch documented in this encounter Active and Recently Administered Medications Times are shown in EDT. Scheduled Medication Order 03/04/2022 03/05/2022 03/06/2022 lidocaine (Lidoderm) 5% patch 3 patch(Linked Group 1) 3 patch, Topical (Top), EVERY 24 HOURS, First dose on Jania 03/06/22 at 0130, Until Discontinued, Apply patch(es) for 12 hours, and then remove for 12 hours., Routine 0129 (Patch Applied - Provider: Tanya Macias RN - Comment: 2 applied on the left wrist and one on the right foot) lidocaine (Lidoderm) topical patch REMOVAL(Linked Group 1) Transdermal, EVERY 24 HOURS, First dose on Jania 03/06/22 at 1330, Until Discontinued, Remove lidocaine 5% patch Linked Groups Order Group 1: lidocaine (Lidoderm) 5% patch 3 patchJump to med 3 patch, Topical (Top), EVERY 24 HOURS, First dose on Jania 03/06/22 at 0130, Until Discontinued, Apply patch(es) for 12 hours, and then remove for 12 hours., Routine And lidocaine (Lidoderm) topical patch REMOVALJump to med Transdermal, EVERY 24 HOURS, First dose on Jania 03/06/22 at 1330, Until Discontinued, Remove lidocaine 5% patch documented in this encounter Care Teams Street Superintendent Relationship Specialty Start Date End Date Alfreda Molina MD PCP - General Pediatrics 11/30/20 12/04/22 documented as of this encounter
--- OUTSIDE RECORDS SUMMARY | 2024-07-29 00:25 | XMS_ITS | Encounter Summary ---
Author Organization [facility] Address [facility] [place] [address] Care Team Providers Care Bar Examiner Name Role Phone Alfreda Molina MD Primary Care Provider Vicky vailable Encounter Details Date Type Department Care Team (Late st Contact Info) Description 02/19/2022 Orders Only Pediatrics at [facility] [address] [place] [phone] Tegan Dodson MD [facility] [address] [facility] [address] Social History Tobacco Use Types Packs/Day Years Used Date Smoking Tobacco: Never Smokeless Tobacco: Never Comments:no one smokes at [facility] Alcohol Use Standard Drinks/Week Comments No [...] Description 08/08/2024 9:00 AM EST Appointment [address] [phone] Umu Saucedo, RN 08/15/2024 10:45 AM EST TH Visit (TeleHealth) Obstetrics [place] [address] Dara Kelley MD [facility] OBSTETRICS [place] [address] 11/25/2024 Hospital Encounter Birthing [place] [phone] Dara Gonzalez MD [facility] OBSTETRICS [place] [address] 07/12/2025 1:40 PM EST Office Visit Ophthalmology at [address] Bina Agrawal OD [facility] [place] [address] documented as of this encounter Visit Diagnoses Not on filedocumented in this encounter Care Teams Bar Examiner Relationship Specialty Start Date End Date Alfreda Molina MD PCP - General Pediatrics 11/30/20 12/04/22 documented as of this encounter
--- OUTSIDE RECORDS SUMMARY | 2024-07-29 00:25 | XMS_ITS | Encounter Summary ---
Author Organization [facility] Address [facility] [place] [address] Care Team Providers Care Acquisition Manager Name Role Phone Alfreda Molina MD Primary Care Provider Vicky vailable Encounter Details Date Type Department Care Team (Late st Contact Info) Description 10/03/2021 Telephone [facility] at [address] [place] [phone] Edilma Patel, PA [address] OBSTETRICS [place] [address] Social History Tobacco Use Types Packs/Day Years Used Date Smoking Tobacco: Never Smokeless Tobacco: Never Comments:no one smokes at [facility] Alcohol Use Standard Drinks/Week Comments No 0 (1 standard drink = 0.6 oz pur e alcohol) Sex and Gender Information Value Date Recorded Sex Assigned at Female 07/24/2023 9:35 AM EST Gender Identity Female 07/24/2023 9:35 AM EST Sexual Orientation Straight 07/24/2023 9: 35 AM EST documented as of this encounter Miscellaneous Notes * Addendum Note - Andressa Campoverde, ALEXIS - 10/04/2021 2:06 PM EDTAddended by: ANDRESSA CAMPOVERDE on: 10/04/2021 02:06 PM Modules accepted: Orders * Telephone Encounter - Andressa Campoverde LPN - 10/04/2021 2:04 PM EDT Called and let pt know that per Edlima HAYES RX for Nuva ring was sent to the pharmacy.. Pt. Thanked me for the call. * Telephone Encounter - Edilma Patel PA - 10/04/2021 1:59 PM EDT Prescription sent to [facility] in [place]. ABIGAIL Correa 10/04/2021 * Telephone Encounter - Andressa Campoverde LPN - 10/04/2021 1:52 PM EDT I have spoken with pt and she states that after thinking about her options she does not want IUD right now and would like to try NUVA ring. Pt. Would like RX sent to [facility] in [place] * Telephone Encounter - Andressa Campoverde LPN - 10/04/2021 9:02 AM EDT Called pt. Left message to please return my call. * Telephone Encounter - Demetrice Mock - 10/03/2021 2:18 PM EDT Patient had called this morning and was asking to get an IUD I have scheduled her with Edilma for 10/14 she isn't sure what IUD she is going to want. She is wondering if she can start any kind of BC before the appt. documented in this encounter Plan of Treatment Upcoming Encounters Date Type Department Care Team (Late st Contact Info) Description 08/08/2024 9:00 AM EST Appointment [address] [phone] Umu Saucedo, RN 08/15/2024 10:45 AM EST TH Visit (TeleHealth) Obstetrics and Gynecology at [place] [phone] Dara Kelley MD [facility] [address] [place] [address] 11/25/2024 [place] [phone] Dara Gonzalez MD [facility] [address] [place] [address] 07/12/2025 1:40 PM EST Office Visit Ophthalmology at [address] Bina Agrawal OD [facility] [place] [address] documented as of this encounter Visit Diagnoses Diagnosis Encounter for BCP ( control pills) initial prescription General counseling for prescription of oral contraceptives documented in this encounter Care Teams Acquisition Manager Relationship Specialty Start Date End Date Alfreda Molina MD PCP - General Pediatrics 11/30/20 12/04/22 documented as of this encounter
--- OUTSIDE RECORDS SUMMARY | 2024-07-29 00:25 | XMS_ITS | Encounter Summary ---
Author Organization [facility] Address One [facility] [place] [address] Care Team Providers Care Lithographic Press Operator Name Role Phone Alfreda Molina MD Primary Care Provider Vicky vailable Reason for Visit * Reason Comments Gynecologic Exam Encounter Details Date Type Department Care Team (Late st Contact Info) Description 02/11/2022 8:30 AM EDT Office Visit [facility] [address] [place] [address] Edilma Patel PA [address] DR [facility] [place]EC[place] [address] Vulvar lesion; Routine screening for STI (sexually transmitted infection) Social History Tobacco Use Types Packs/Day Years Used Date Smoking Tobacco: Never Smokeless Tobacco: Never Comments:no one smokes at [facility] Alcohol Use Standard Drinks/Week [...] Sign Reading Time Taken Comments Blood Pressure 110/70 02/11/2022 8:20 AM EDT Pulse 110 02/11/2022 8:20 AM EDT Temperature 36.5 ??C (97.7 ??F) 02/11/2022 8:20 AM ED T Respiratory Rate 14 02/11/2022 8:20 AM EDT Oxygen Saturation 98% 02/11/2022 8:20 AM EDT Inhaled Oxygen Concentration - - Weight 58.5 kg (129 lb) 02/11/2022 8:20 AM EDT Height 151 cm (4' 11.45) 02/11/2022 8:20 AM EDT Body Mass Index 25.66 02/11/2022 8:20 AM EDT Body Mass Index Percentile 84.81% 02/11/2022 8:2 0 AM EDT Growth Chart: [facility] (Girls, 2- 20 Years) documented in this encounter Progress Notes * Edilma Patel PA - 02/11/2022 8:30 AM EDT Chief Complaint: Chief Complaint Patient presents with ??? Gynecologic Exam Subjective: HPI: Ely Mahmood is a 17 y.o. female presenting to the [facility] with the following concerns: Ely noted sores on her inner labia 3 days ago - sometimes stingy and tender, but sometimes does not even notice them - one has a red ring around it, white spot in the middle. Wonders if this could be allergic reaction to a new bath product she tried right around that time. Denies itching, bleeding, drainage. Denies previous history of genital sores She also notes pain in her back and knee x 1 week but also spent a day moving stuff out of storage,so could be musculoskeletal. She also had 100.5 - 102 fevers last week, went to the ER 3 days ago -tested negative for Covid, UTI -was told likely other viral infection and recommended symptomatic treatment. She is sexually active with 1 partner x a few years - but did have intercourse with 1 other person months ago. Does not use condoms. Uses NuvaRing for control. No history of STIs. Most recently tested negative for GC/Chlamydia 07/08/2021. ROS: Review of Systems Pertinent Past medical [...] control Z30.019 ??? Acne vulgaris L70.0 ??? Elevated TSH R79.89 Past Medical History: Diagnosis Date ??? Acne [...] Use with spacer 1 each 5 ??? etonogestreL-ethinyl estradioL (NuvaRing) 0.12-0.015 mg/[address] 1 each vaginally every28 days. Insert vaginally and leave in place for 3 consecutive weeks, then remove for 1 week. 3 each 3 ??? [facility] Spacer ??? calcium carbonate (TUMS) 200 mg calcium (500 mg) Tablet, Chewable Take 1 tablet by mouth daily. ??? sertraline (Zoloft) 25 mg Tablet Take 0.5 tablets by mouth daily for 14 days, THEN 1 tablet daily for 21 days. (Patient not taking: Reported on 02/11/2022) 28 tablet 0 No current facility-administered medications on file prior to visit. Allergies Allergen Reactions ??? Band-Aid [Adhesive Bandage] Rash Fabric band-aids Objective: VS: BP 110/70 Pulse 110 Temp 36.5 ??C (97.7 ??F) Resp 14 Ht 151 cm (4' 11.45) Wt 58.5 kg(129 lb) LMP 01/24/2022 SpO2 98% BMI 25.66 kg/m?? Physical Exam External genitalia: Multiple ulcerated lesions on inner aspect of labia minora bilaterally - 2 on upper left labia appear to be healing, 3 on lower left and 2 on lower right shaker tender. Swab collected Vagina: pink, normal discharge noted, no lesions and nontender Cervix: normal appearance, no discharge or lesions noted, no CMT Uterus: normal size, mobile, nontender Adnexa: no masses, nontender Assessment and Plan: lEy Mahmood is a 17 y.o. 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 HSV 1 and 2 PCR ordered. Reviewed nature of disease and treatment options,including that asymptomatic infection is common, episodic therapy can shorten the duration of recurrent episodes and suppressive therapy may reduce the frequency of outbreaks. We also discussed that transmission can occur through [id number], nsmb-aq-eboslxj, or genital- to-oral contact, that there is asymptomatic viral shedding - in fact persons who are asymptomatic or unaware of their genital infection are responsible for transmitting the majority of genital HSV infections - and that asymptomatic shedding is highest in the first year after infection. Antiviral suppressive therapy dramatically reduces viral shedding by about 70% to 80%, but does not eradicate it. Reviewed ways to reduce risk of transmission, including abstaining from sexual activity with uninfected partners when lesions or prodromal symptoms are present, use of condoms and daily suppressive therapy with valacyclovir. She has been with her partner for a number of years and we discussed possible serum antibody testing for him. Handout from [facility] provided. Pt was tearful and a little overwhelmed with this diagnosis. Will start treatment with [id number] mg BID x 10 days and schedule f/u appointment to discuss possible suppressive therapy and any other questions that arise. She can bring partner to this appointment if she'd like. Pt also desired STI screen - GC/Chlamydia orders placed. Ely was seen today for gynecologic exam. Diagnoses and all orders for this visit: Vulvar lesion - HSV 1 and 2 PCR - valACYclovir (Valtrex) 500 mg Tablet; Take 2 tablets by mouth 2 times daily for 10 days. Routine screening for STI (sexually transmitted infection) - [place]lam[place]) Cervical FOLLOW UP: Return in about 1 week (around 02/18/2022) for HSV follow up. ABIGAIL Correa 02/11/2022 documented in this encounter Plan of Treatment Upcoming Encounters Date Type Department Care Team (Late st Contact Info) Description 08/08/2024 9:00 AM EST Appointment [address] [phone] Umu Saucedo RN 08/15/2024 10:45 AM EST TH Visit (TeleHealth) Obstetrics and Gynecology at [place] [phone] Dara Kelley MD [facility] OBSTETRICS AND G[place]EC[place] [address] 11/25/2024 Hospital Encounter Birthing [place] [phone] Dara Gonzalez MD [facility] OBSTETRICS AND [place]EC[place] [address] 07/12/2025 1:40 PM EST Office Visit Ophthalmology at [place] [phone] Bina Agrawal OD [facility] OPHTHAL[place] [address] documented as of this encounter Procedures Procedure Name Priority Date/Time Associated Diagnosis Comments HC HERPES SIMPLEX VIRUS 1/2 BY PCR Routine 02/11/2022 9:31 AM EDT Vulvar lesion HC GC GENE AMP Routine 02/11/2022 9:31 AM EDT Routine screening for STI (sexually transmitted infection) documented in this encounter Results * GC/Chlamydia ([facility]) Cervical (02/11/2022 9:31 AM EDT) GC Gene Amp Negative Negative [facility] Comment: The only FDA approved specimen types for this assay are cervical, vaginal, urethral and urine. Non-FDA approved sources are eye, throat and rectal and have been internally validated. GC Source Cervical [facility] Chlamydia Gene Amp Negative Negative [facility] Comment: The only FDA approved specimen types for this assay are cervical, vaginal, urethral and urine. Non-FDA approved sources are eye, throat and rectal and have been internally validated. Chlm Source Cervical [facility] Cervical 02/11/2022 9:31 AM EDT 02/11/2022 4:12 PM EDT Narrative Resulting Agency Comment Spec In Lab Earle Cade MD MICROBIOLOGY - GENE [facility] ORDERABLES [facility] [place] [address] * HSV 1 and 2 PCR (02/11/2022 9:31 AM EDT) HSV-1 PCR Not Detected Not Detected [facility] HSV-2 PCR Not Detected Not Detected [facility] HSV Source Vulval [facility] Comment: The only FDA approved specimen types for this assay are CSF and genital lesions. Vulval 02/11/2022 9:31 AM EDT 02/11/2022 4:11 PM EDT Comment:Specimen Type:->Vulv al Narrative Resulting Agency Comment Spec In Lab Earle Cade MD MICROBIOLOGY - GENE [facility] [place] [address] documented in this encounter Visit Diagnoses Diagnosis Vulvar lesion Other specified noninflammatory disorder of vulva and perineum Routine screening for STI (sexually transmitted infection) Screening examination for venereal disease documented in this encounter Care Teams Lithographic Press Operator Relationship Specialty Start Date End Date Alfreda Molina MD PCP - General Pediatrics 11/30/20 12/04/22 documented as of this encounter
--- OUTSIDE RECORDS SUMMARY | 2024-07-29 00:25 | XMS_ITS | Encounter Summary ---
[facility] Organization [facility] Address [facility] [place] [address] Care Team Providers Care Director Of Digital Technology Name Role Phone Alfreda Molina MD Primary Care Provider Vicky vailable Reason for Visit * Reason Comments Other Encounter Details Date Type Department Care Team (Late st Contact Info) Description 01/23/2022 4:00 PM EDT Office Visit Pediatrics at [facility] [address] [place] [phone] Tegan Dodson MD [facility] [address] [address] Other fatigue; Sleep disturbances Social History Tobacco Use Types Packs/Day Years Used Date Smoking Tobacco: Never Smokeless Tobacco: Never Comments:no one smokes at [facility] Alcohol Use Standard Drinks/Week Comments No [...] Sign Reading Time Taken Comments Blood Pressure 110/80 01/23/2022 3:55 PM EDT Pulse - - Temperature - - Respiratory Rate - - Oxygen Saturation - - Inhaled Oxygen Concentration - - Weight 58.5 kg (129 lb) 01/23/2022 3:55 PM EDT Height - - Body Mass Index - - documented in this encounter Progress Notes * Tegan Dodson MD - 01/23/2022 4:00 PM EDT Subjective: Patient ID: Ely Mahmood is a 17 y.o. female. HPI Ely Mahmood is a 17 y.o. here today for: Chief Complaint Patient presents with ??? Other Fatigue x 2 mos Worsening this week Hx of depression, rxd zoloft in past but difficutly remembering to take Currently mood is good, but Ely would like to restart zoloft. Not seeing a therapist In stable relationship Feels safe at home and with boyfriend No SI/SA Admits to not having a sleep schedule, states she never has. Will wake early AM, bit can sleep until late morning. Naps during day, can be long, sleeping most of the day Eats dinner around 6p, falls back asleep around 8p and then wakes early AM and be up for a few hours. No snoring Does not limit screen time Had tried melatonin in past without benefit. Minimal caffeine intake Minimal physical activity Current stressor is financial, wants to live independently No smoking vaping or substance use Review of Systems Constitutional: Positive for activity change. Negative for appetite change. HENT: Negative for congestion. Genitourinary: Negative for difficulty urinating. Musculoskeletal: Negative for joint swelling. Objective: Physical Exam Constitutional: General: She is not in acute distress. Appearance: Normal appearance. HENT: Head: Normocephalic. Right Ear: Tympanic membrane normal. Left Ear: Tympanic membrane normal. Nose: Nose normal. Mouth/Throat: Pharynx: No posterior oropharyngeal erythema. Eyes: Conjunctiva/sclera: Conjunctivae normal. Cardiovascular: Rate and Rhythm: Normal rate and regular rhythm. Heart sounds: Normal heart sounds. No murmur heard. Pulmonary: Breath sounds: Normal breath sounds. Abdominal: Palpations: Abdomen is soft. There is no mass. Psychiatric: Mood and Affect: Mood normal. Thought Content: Thought content normal. Judgment: Judgment normal. Assessment and Plan: Depression Recommend restarting zoloft as directed F/u with community resources for counseling F/u recommended with PCP for med check, WCC Sleep disturbances Sleep hygiene reviewed. Discussed regular meal times, wake and sleep times, outdoor activity Discouraged screen time prior to bed Consider clonidine prn Fatigue Likely secondary to above problems BW ordered. Orders Placed This Encounter Procedures ??? CBC (with Diff) ??? Reticulocyte Count ??? Iron and TIBC ??? TSH documented in this encounter Miscellaneous Notes * Assessment & Plan Note - Tegan Dodson MD - 01/24/2022 12:21 PM EDT Associated Problem(s): Sleep disturbances (Resolved 04/15/2024) Sleep hygiene reviewed. Discussed regular meal times, wake and sleep times, outdoor activity Discouraged screen time prior to bed Consider clonidine prn * Assessment & Plan Note - Tegan Dodson MD - 01/24/2022 12:20 PM EDT Associated Problem(s): Depression Recommend restarting zoloft as directed F/u with community resources for counseling F/u recommended with PCP for med check, WCC documented in this encounter Plan of Treatment Upcoming Encounters Date Type Department Care Team (Late st Contact Info) Description 08/08/2024 9:00 AM EST Appointment [facility] [address] [phone] Umu Saucedo RN 08/15/2024 10:45 AM EST TH Visit (TeleHealth) [place]etrics [place] [phone] Dara Kelley MD [facility] OBSTET[place] [address] 11/25/2024 Hospital Encounter [place] [phone] Dara Gonzalez MD [facility] OBST[facility] [address] 07/12/2025 1:40 PM EST Office [place] [phone] Bina Agrawal OD [facility] [address] documented as of this encounter Results * (ABNORMAL) TSH (02/05/2022 10:41 AM EDT) Thyroid Stimulating Hormone 9.31(H) 0.27 - 4.20 mcIU/mL [facility] Comment: Reference Interval (mcIU/mL): Females: ??First Trimester: 0.23-3.88 ??Second Trimester: 0.22-3.90 ??Third Trimester: 0.44-4.66 Blood 02/05/2022 10:4 1 AM EDT 02/05/2022 10:48 AM EDT Narrative Resulting Agency Comment Spec In Lab Tegan Dodson MD CHEMISTRY ORDERABLES [facility] [place] [address] * (ABNORMAL) Iron and TIBC (02/05/2022 10:41 AM EDT) Iron 32 20 - 160 mcg/dL [facility] TIBC 314 194 - 372 mcg/dL [facility] Iron Saturation 10(L) 20 - 50 % [facility] Blood 02/05/2022 10:4 1 AM EDT 02/05/2022 10:48 AM EDT Narrative Resulting Agency Comment Spec In Lab Tegan Dodson MD CHEMISTRY ORDERABLES Performing Organization Address [facility] Co de Phone Number [facility] [place] [address] * Reticulocyte Count (02/05/2022 10:41 AM EDT) Reticulocyte % 1.9 0.7 - 2.5 % [facility] Retic Abs # 0.090 0.020 - 0.110 x10(6)/[facility] Immature Retic% 8.1 0.5 - 13.8 % [facility] Reticulated Hgb 31.4 29.8 - 39.4 pg [facility] Blood 02/05/2022 10:4 1 AM EDT 02/05/2022 10:48 AM EDT Narrative Resulting Agency Comment Spec In Lab Tegan Dodson MD HEMATOLOGY ORDERABLE S Performing Organization Address [facility] Co de Phone Number [facility] [place] [address] documented in this encounter Visit Diagnoses Diagnosis Other fatigue Sleep disturbances Sleep disturbance, unspecified documented in this encounter Care Teams Director Of Digital Technology Relationship Specialty Start Date End Date Alfreda Molina MD PCP - General Pediatrics 11/30/20 12/04/22 documented as of this encounter
--- OUTSIDE RECORDS SUMMARY | 2024-07-29 00:25 | XMS_ITS | Encounter Summary ---
Author Organization [facility] Address [facility] [place] [address] Care Team Providers Care Rolled Glass Crosscutter Name Role Phone Alfreda Molina MD Primary Care Provider Vicky vailable Reason for Visit * Reason Comments Other Discuss blood work. Self. Encounter Details Date Type Department Care Team (Latest Contact Info) Description 05/15/2021 1:30 PM EST Office Visit Pediatrics at [address] [phone] Alfreda Molina MD Vomiting, intractability of vomiting not specified, presence of nausea not specified, unspecified vomiting type Social History Tobacco Use Types Packs/Day Years Used Date Smoking Tobacco: Never Smokeless Tobacco: Never Comments:no one smokes at [facility] Alcohol Use Standard Drinks/Week [...] Sign Reading Time Taken Comments Blood Pressure 122/82 05/15/2021 1:10 PM EST Pulse - - Temperature - - Respiratory Rate - - Oxygen Saturation - - Inhaled Oxygen Concentration - - Weight 56.6 kg (124 lb 12.8 oz) 05/15/2021 1:10 PM EST Height 150.5 cm (4' 11.25) 05/15/2021 1:[address] Body Mass Index 24.99 05/15/2021 1:10 PM EST Body Mass Index Percentile 83.38% 05/15/2021 1:1 0 PM EST Growth Chart: [facility] (Girls, 2- 20 Years) documented in this encounter Progress Notes * Alfreda Molina MD - 05/15/2021 1:30 PM EST Assessment: Ely is a 16yo female who presents with worsening depression. Ely reports with stressors at home depression has worsened over last couple of weeks. No thoughts of self-harm. Will continue to see hercounselor and recommend starting an SSRI. Close follow-up in 3-4 weeks. If worsening depression recommended she follow-up sooner. Discussed regular sleep routines and going back to school which she is willing to try. With low vit D recommended started vit D supplementation. In setting of recent episode of emesis with recent nexplanon removal and restarting OCP obtained POC urine which was negative. Knee pain which occurs with walking, no pain on palpation or with flexion/extension, offered referral to PT which she declined at this time. Plan: -vit D 800u a day -continue sessions with counselor -encouraged sleep routine and return to school -zoloft taper starting with 12.5mg daily for 2 weeks with increased to 25mg -close follow-up in 3-4 weeks Return to Clinic for: -prn worsening of depression Chief Complaint: Chief Complaint Patient presents with ??? Other Discuss blood work. Self. 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 Acne vulgaris L70.0 Vital Signs: BP 122/82 Ht (!) 150.5 cm (4' 11.25) Wt 56.6 kg (124 lb 12.8 oz) LMP 05/05/2021 (Exact Date) BMI 24.99 kg/m?? PHYSICAL EXAM: General: awake, alert, cooperative, interactive HEENT: NC/AT, PERRL, EOMI, OP clear and without erythema CV: S1S2+, RRR without murmur Resp: CTA B without wheezes Abd: soft, non-tender, non-distended, no masses, normoactive bowel sounds Ext: warm, dry, without rashes , capillary refill<2seconds Neuro: grossly intact, gait normal, moves all extremities equally MSK: no pain on palpation of knees, with extension/flexion of knees or with walking/squatting in the office * Princess Marroquin MD - 05/15/2021 1:30 PM EST The case was discussed [...] Description 08/08/2024 9:00 AM EST Appointment [address] [phone] Umu Saucedo RN 08/15/2024 10:45 AM EST TH Visit (TeleHealth) Obstetrics [place] [phone] Dara Kelley MD [facility] [address] [place] [address] 11/25/2024 [place] [phone] Dara Gonzalez MD [facility] [address] [place] [address] 07/12/2025 1:40 PM EST Office Visit Ophthalmology at [place] [phone] Bina Agrawal OD [facility] [place] [address] documented as of this encounter Procedures Procedure Name Priority Date/Time Associated Diagnosis Comments POCT URINE Routine 06/17/2021 Vomiting, intractability of vomiting not specified, presence of nausea not specified, unspecified vomiting type documented in this encounter Results * POCT urine (06/17/2021) POC Urine HCG Negative Negative - Negative POC Control Internal Controls Acceptable Princess Marroquin MD POINT OF CARE TEST O RDERABLES documented in this encounter Visit Diagnoses Diagnosis Vomiting, intractability of vomiting not specified, presence of nausea not specified, unspecified vomiting type documented in this encounter Care Teams Rolled Glass Crosscutter Relationship Specialty Start Date End Date Alfreda Molina MD PCP - General Pediatrics 11/30/20 12/04/22 documented as of this encounter
--- OUTSIDE RECORDS SUMMARY | 2024-07-29 00:25 | XMS_ITS | Encounter Summary ---
Author Organization [facility] Address [facility] [place] [address] Care Team Providers Care Cool Roofing Installer Name Role Phone Alfreda Molina MD Primary Care Provider Vicky vailable Reason for Referral * Consultation (Routine) - Closed Specialty Diagnoses / Procedures Referred By Contac t Referred To Contact Obstetrics and Gynecology Diagnoses Vaginal bleeding Ayesha Garcia MD [facility] [place] [address] [address] Referral ID Status Reason Start Date Expiration Date V isits Requested Visits Authorized [id number] Closed Consult, Test & Treat 06/17/2021 06/17/2022 1 1 Encounter Details Date Type Department Care Team (Late st Contact Info) Description 06/17/2021 2:37 PM EST - 06/17/2021 7:05 PM EST Emergency Emergency Services at [address] [phone] Ayesha Garcia MD [facility] [place] [address] Vaginal bleeding Discharge Disposition: Home Social History Tobacco Use Types Packs/Day Years Used Date Smoking Tobacco: Never Smokeless Tobacco: Never Comments:no one smokes at [facility] Alcohol Use Standard Drinks/Week Comments No 0 (1 standard drink = 0.6 oz pur e alcohol) Sex and Gender Information Value Date Recorded Sex Assigned at Female 07/24/2023 9:35 AM EST Gender Identity Female 07/24/2023 9:35 AM EST Sexual Orientation Straight 07/24/2023 9: 35 AM EST documented as of this encounter Last Filed Vital Signs Vital Sign Reading Time Taken Comments Blood Pressure 127/85 06/17/2021 7:02 PM EST Pulse 79 06/17/2021 7:02 PM EST Temperature 36 ??C (96.8 ??F) 06/17/2021 3:09 PM EST Respiratory Rate 17 06/17/2021 7:02 PM EST Oxygen Saturation 99% 06/17/2021 7:02 PM EST Inhaled Oxygen Concentration - - Weight 56.2 kg (124 lb) 06/17/2021 3:09 PM EST Height - - Body Mass Index - - documented in this encounter Discharge Instructions * Discharge Instructions* Ayesha Garcia MD - 06/17/2021 6:39 PM EST You were seen in the emergency department with concern for vaginal bleeding. Given your recent positive test, this is highly concerning for miscarriage at this time. The remainder of your blood work and vital signs were all reassuring here in the emergency department. Anticipate bleeding will improve on its own in a period of several days. Referral was placed with the ACQUISITION ADVISOR service for follow-up. They should contact you to schedule thisappointment, if you do not hear from them in 2-3 business days please call them at the number listed below. If you have worsening bleeding, dizziness, lightheadedness, shortness of breath, or any other concerning symptoms please return to the emergency department immediately for reevaluation. * Attachments The following attachments cannot be sent through Care Everywhere. * Miscarriage (Cameroonian) documented in this encounter Medications at Time of Discharge Medication Sig Dispensed Refills Start Date End Date predniSONE (Deltasone) 20 mg Tablet 04/03/2021 01/23/2022 sertraline (Zoloft) 25 mg Tablet Take 0.5 tablets by mouth daily for 14 days, THEN 1 tablet daily for 21 days. 28 tablet 05/15/2021 10/02/2021 cholecalciferol, Vitamin D3, 10 mcg (400 unit) Capsule Take 2 capsules by mouth daily. 80 capsule 05/15/2021 01/23/2022 levonorgestrel-ethiny l estradiol (Lessina) 0.1-20 mg-mcg Tablet Take 1 tablet by mouth daily for 90 days. 90 tablet 04/03/2021 07/02/2021 Salicylic Acid 2 % LotionIndications:Tro pical acne Apply thin layer daily to acne on face. 118 mL 10/15/2019 01/23/2022 etonogestrel (NEXPLANON) 68 mg Implant 1 each by Subdermal route Continuous (Device). Expected removal date 10/29/21 1 each 10/29/2018 07/08/2021 RUSTAM [facility] Spacer 09/07/2018 02/03/2023 calcium carbonate (TUMS) 200 mg calcium (500 mg) Tablet, Chewable Take 1 tablet by mouth as needed. 08/20/2023 albuterol 90 mcg/actuation HFA Aerosol Inhaler Inhale 2 puffs into the lungs every 4 hours as needed for Wheezing. Use with spacer 1 Inhaler 5 09/07/2018 01/23/2022 documented as of this encounter ED Notes * Humera Crowley RN - 06/17/2021 6:26 PM EST In with ER as checkout supervisor during pelvic exam. * Ayesha Garcia MD - 06/17/2021 4:15 PM EST ED Attending Note HPI: Ely Mahmood is a 16 y.o. female history of depression who presents to the Emergency Department with concern for vaginal bleeding. Patient states she was in her normal state of health until approximately 1 week ago. She was visiting her sister when she developed abdominal pain nausea and vomiting. A test at that time was positive. To subsequent test were noted to be questionablypositive. 2 days prior to presentation she developed vaginal bleeding and over that time has becomemore heavy and associated with some clots. She currently using 2 pads per day. Is been associated with some abdominal cramping. Of note she notes noncompliance with her control. This was an unplanned . Last period was 2 weeks ago. She denies any fevers, chills, nausea or vomiting. No other diarrhea or dysuria. No other vaginal discharge or concerns for STIs. She reports some intermittent dizziness and shortness of breath but no syncopal episodes, and does not currently feel either dizzy or short of breath. She did have a similar event several years ago. Review of Systems Pertinent positives and negatives are included in the HPI, otherwise at least ten systems were reviewed and negative. Past Medical and Surgical Histories, Social History, Medications, Allergies were reviewed in the chart. Vitals: ED Triage Vitals [06/17/21 1509] BP: 134/77 Heart Rate: 89 Resp: 17 Temp: 36 ??C (96.8 ??F) Temp src: Tympanic SpO2: 99 % O2 Device: n/a O2 Flow Rate (L/min): n/a Physical Exam Vitals and nursing note reviewed. Constitutional: General: She is not in acute distress. Appearance: She is well-developed. She is not diaphoretic. HENT: Head: Normocephalic and atraumatic. Eyes: Conjunctiva/sclera: Conjunctivae normal. Cardiovascular: Rate and Rhythm: Normal rate and regular rhythm. Heart sounds: Normal heart sounds. Pulmonary: Effort: Pulmonary effort is normal. No respiratory distress. Breath sounds: Normal breath sounds. No wheezing or rales. Abdominal: General: Bowel sounds are normal. There is no distension. Palpations: Abdomen is soft. Tenderness: There is no guarding or rebound. Comments: Mild suprapubic abdominal tenderness. Genitourinary: Comments: Significant bleeding from cervical os and pooling in the vaginal vault. No adnexal or cervical tenderness. No other vaginal trauma noted. Musculoskeletal: Cervical back: Neck supple. Skin: General: Skin is warm and dry. Neurological: Mental Status: She is alert and oriented to person, place, and time. Cranial Nerves: No cranial nerve deficit. ED Course: Procedures Assessment and Plan: 16 y.o. female with vaginal bleeding. Given report of recent positive test, SAB most likely etiology for her symptoms. Considered ectopic although with negative urine and blood this is significantly less likely. No other vaginal discharge or complaints suggestive of STI. Patient's blood work notable for normal H&H. She is Rh+, negating need for RhoGam. Remainder ofblood work is noncontributory. Discussed evaluation of miscarriage and expectant management. A referral was placed with ACQUISITION ADVISOR forfollow-up and considerations of other causes of menorrhagia if symptoms do not improve. She remained hemodynamically and otherwise stable throughout her time in the emergency department. The findings, diagnosis, and care plans were discussed with the patient and Grandmother. The diagnosis and care plans discussions were outlined in the discharge instructions. The patient and the Grandmother expressed understanding of the details of the visit, including findings and return precautions and that they should return to the ER at any time for worsening symptoms, new symptoms, or other concerns. Ayesha Garcia MD 06/17/21 1837 * Humera Crowley RN - 06/17/2021 3:20 PM EST negative documented in this encounter Miscellaneous Notes * ED Triage - Humera Crowley RN - 06/17/2021 2:56 PM EST Pt presents to the ed with x 3 faint positive tests. Pt states she took tests on Thursday and began cramping and spotting on Thursday followed blood clots. Pt. States that she is still having cramping. Denies gi issues. Pt. States this was not a planned and had not taken her lastpack of birthcontrol pills appropriately. He nexplanon implant was removed in November. She sates she'sbeen going through 2 pads a day. Past Medical History: Diagnosis Date ??? Acne vulgaris 10/26/2019 ??? Asthma asthma as baby ??? Bronchopulmonary dysplasia ??? Chronic otitis media ??? Depression 10/05/2018 ??? Developmental delay ??? Ex-29 week ??? Speech delay documented in this encounter Plan of Treatment Upcoming Encounters Date Type Department Care Team (Late st Contact Info) Description 08/08/2024 9:00 AM EST Appointment [address] [address] Umu Saucedo RN 08/15/2024 10:45 AM EST TH Visit (TeleHealth) Obstetrics and Gynecology at [place] [phone] Dara Kelley MD [facility] [place] [address] 11/25/2024 [place] [phone] Dara Gonzalez MD [facility] DR OBSTETRICS [place] [address] 07/12/2025 1:40 PM EST Office Visit Ophthalmology at [place] [phone] Bina Agrawal OD [facility] [place] [address] Scheduled Referrals Name Type Priority Associated Diagnoses Orde r Schedule Referral to Ob-Inspector Watch [facility] Outpatient Referral Routine Vaginal bleeding Ordered: 06/17/2021 documented as of this encounter Procedures Procedure Name Priority Date/Time Associated Diagnosis Comments TYPE AND SCREEN VALIDITY STAT 06/17/2021 4:04 PM EST ANTIBODY SCREEN GEL (APD/NLH) STAT 06/17/2021 4:04 PM EST ABORH TYPE GEL (APD/NLH) STAT 06/17/2021 4:04 PM EST HC BLOOD GROUP (ABO) STAT 06/17/2021 4:04 PM EST ABORH RECHECK STATUS STAT 06/17/2021 4:04 PM EST HEMOGRAM STAT 06/17/2021 4:04 PM EST DIFFERENTIAL, AUTOMATED STAT 06/17/2021 4:04 PM EST HC CBC,PLT & AUTO DIFF STAT 06/17/2021 4:04 PM EST HC CHORIONIC GONADOTROPINS, SERUM STAT 06/17/2021 4:04 PM EST BASIC METABOLIC PANEL STAT 06/17/2021 4:04 PM EST POCT URINE STAT 06/17/2021 documented in this encounter Results * Type and Screen Validity (06/17/2021 4:04 PM EST) [facility] T&S only valid at [facility] LABORATORY Comment:This Type and Screen result is only valid at the [facility] Blood 06/17/2021 4:04 PM EST 06/17/2021 4:55 PM EST Narrative Resulting Agency Comment Spec In Lab Ayesha Garcia MD BLOOD BANK LAB KERA M[facility] [address] [place] [address] * ABORH Recheck Status (06/17/2021 4:04 PM EST) [facility] ABORH Type Recheck Completed [facility] Blood 06/17/2021 4:04 PM EST 06/17/2021 4:55 PM EST Narrative Resulting Agency Comment Spec In Lab Ayesha Garcia MD BLOOD BANK LAB ORDTamiko [facility] [address] [place] [address] * Antibody Screen Gel (APD/NLH) (06/17/2021 4:04 PM EST) AB Screen Interp Negative [facility] Blood 06/17/2021 4:04 PM EST 06/17/2021 4:24 PM EST Narrative Resulting Agency Comment Spec In Lab Ayesha Garcia MD BLOOD BANK LAB ORDTamiko [facility] Performing Organization Address [facility]/ZIP Co de Phone Number LABORATORY [address] [place] [address] * ABORh type Gel (APD/NLH) (06/17/2021 4:04 PM EST) Expires at 2359 on: 06/20/2021 [facility] ABORH Type A Pos [facility] Blood 06/17/2021 4:04 PM EST 06/17/2021 4:24 PM EST Narrative Resulting Agency Comment Spec In Lab Ayesha Garcia MD BLOOD BANK LAB ORDE PRINCE Performing Organization Address [facility]/ZIP Co de Phone Number LABORATORY [address] [place] [address] * Differential, Automated (06/17/2021 4:04 PM EST) Neutrophil % 62.3 % [facility] Neutrophil Absolute 5.07 1.50 - 8.00 x10(3)/mcL [facility] Lymph % 27.2 % [facility] Lymphocytes Abs 2.2 1.2 - 5.2 x10(3)/mcL [facility] Monocyte % 8.0 % [facility] Monocyte Abs 0.6 0.2 - 1.0 x10(3)/mcL [facility] Eos % 1.5 % [facility] Eosinophils Abs 0.1 0.0 - 0.4 x10(3)/mcL LABORATORY Basophil % 0.9 % LABORATORY Baso Absolute 0.1 0.0 - 0.1 x10(3)/mcL LABORATORY Immature Gran % 0.10 % LABORATORY Comment: Immature granulocytes(IG's)percentage and absolute count will include metamyelocytes, myelocytes, and promyelocytes. Blood smears from CBCs yielding IG's will be scanned manually for concordance. If this scan disagrees with the automated IG or if promyelocytes are noted, a manual differential will be performed. Immature Gran Absolute 0.01 0.00 - 0.04 x10(3)/mcL LABORATORY Blood 06/17/2021 4:04 PM EST 06/17/2021 4:24 PM EST Narrative Resulting Agency Comment Spec In Lab Ayesha Garcia MD HEMATOLOGY ORDERABL ES LABORATORY [address] [place] [address] * (ABNORMAL) Hemogram (06/17/2021 4:04 PM EST) White Blood Cell 8.1 4.5 - 13.0 x10(3)/mc L LABORATORY Red Blood Cell 5.17(H) 4.10 - 5.10 x10(6)/mc L LABORATORY Hemoglobin 15.1 12.0 - 16.0 g/dL LABORATORY Hematocrit 46.0 36.0 - 46.0 % LABORATORY Mean Cell Volume 89.0 76.0 - 98.0 fL LABORATORY Mean Cell Hemoglobin 29.2 25.0 - 35.0 pg LABORATORY Mean Cell Hemoglobin Concentration 32.8 32.0 - 36.5 g/dL LABORATORY Platelet 377(H) 145 - 370 x10(3)/mc L LABOR[facility]ORY RDW Standard Deviation 38.3 37.0 - 46.0 fL LABORATORY RDW coefficient of variation 11.6 0.0 - 14.5 % LABORATORY Mean Platelet Volume 9.6 7.6 - 12.9 fL LABORATORY Blood 06/17/2021 4:04 PM EST 06/17/2021 4:24 PM EST Narrative Resulting Agency Comment Spec In Lab Ayesha Garcia MD HEMATOLOGY ORDERABL ES Performing Organization Address [facility] Co de Phone Number [facility] [address] [place] [address] * Beta HCG, quantitative (06/17/2021 4:04 PM EST) Beta Human Chorionic Gonadotropin, Quantitative <1 mlU/ML LABORATORY Blood 06/17/2021 4:04 PM EST 06/17/2021 4:24 PM EST Narrative Resulting Agency Comment Spec In Lab Ayesha Garcia MD CHEMISTRY ORDERABLE S Performing Organization Address [facility] Co de Phone Number [facility] [address] [place] [address] * (ABNORMAL) Basic Metabolic Panel (non-fasting) (06/17/2021 4:04 PM EST) Glucose 79 65 - 199 mg/dL LABORATORY Comment:Diabetes: >=200 mg/d L plus symptoms Blood Urea Nitrogen 9(L) 10 - 20 mg/dL LABORATORY Creatinine 0.71 0.50 - 0.89 mg/dL [facility] Sodium 138 135 - 145 mmol/L [facility] Potassium 4.1 3.5 - 5.0 mmol/L LABORATORY Comment: Please note: ??Patients with WBC >100,000 may have falsely elevated Potassium levels. ??For accurate Potassium quantification in these patients send serum separator tube (gold top) for subsequent determinations. ??Contact the Clinical Chemistry Laboratory if there are any questions. Chloride 102 98 - 107 mmol/L LABORATORY Carbon Dioxide 23 22 - 31 mmol/L LABORATORY Anion Gap 13 5 - 15 mmol/L LABORATORY Calcium 10.0 8.5 - 10.5 mg/dL LABORATORY Est Glomerular Filtration Rate See note >=60 mL/min/1. 73 m?? LABORATORY Comment: The eGFR for patients less than 18 years of age should be calculated using the Carlson formula. GFR = (0.413 x Height in cm)/serum creatinine. Blood 06/17/2021 4:04 PM EST 06/17/2021 4:24 PM EST Narrative Resulting Agency Comment Spec In Lab Ayesha Garcia MD CHEMISTRY ORDERABLE S [facility] [address] [place] [address] * POCT urine (06/17/2021) POC Urine HCG Negative Negative - Negative POC Control Internal Controls Acceptable 06/17/2021 Ayesha Garcia MD POINT OF CARE TEST ORDERABLES documented in this encounter Visit Diagnoses Diagnosis Vaginal bleeding Other specified noninflammatory disorder of vagina documented in this encounter Care Teams Cool Roofing Installer Relationship Specialty Start Date End Date Alfreda Molina MD PCP - General Pediatrics 11/30/20 12/04/22 documented as of this encounter
--- OUTSIDE RECORDS SUMMARY | 2024-07-29 00:26 | XMS_ITS | Encounter Summary ---
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 118 mL 10/15/2019 01/23/2022 etonogestrel (NEXPLANON) 68 mg Implant 1 each by Subdermal route Continuous (Device). Expected removal date 10/29/21 1 each 10/29/2018 07/08/2021 [facility] Spacer 09/07/2018 02/03/2023 calcium carbonate (TUMS) 200 mg calcium (500 mg) Tablet, Chewable Take 1 tablet by mouth as needed. 08/20/2023 albuterol 90 mcg/actuation HFA Aerosol Inhaler Inhale 2 puffs into the lungs every 4 hours as needed for Wheezing. Use with spacer 1 Inhaler 5 09/07/2018 01/23/2022 documented as of this encounter Plan of Treatment Upcoming Encounters Date Type Department Care Team (Late st Contact Info) Description 08/08/2024 9:00 AM EST Appointment [address] [phone] Umu Saucedo RN 08/15/2024 10:45 AM EST TH Visit (TeleHealth) Obstetrics [place] [phone] Dara Kelley MD [facility] [place] [address] 11/25/2024 Hospital [place] [phone] Dara Gonzalez MD [facility] OBST[place] [address] 07/12/2025 1:40 PM EST Office [place] [phone] Bina Agrawal OD [facility] [place] [address] documented as of this encounter Procedures Procedure Name Priority Date/Time Associated Diagnosis Comments XR SCOLIOSIS OR TOTAL SPINE 2 VIEW Routine 05/25/2020 1:14 PM EST 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 ??Unchanged dextroscoliosis of the lower thoracic spine. 2. ??Similar vertebral bodies segmentation anomalies. I have personally reviewed the image(s) and the resident's interpretation and agree with the findings, Prabhu Dean MD at 05/25/2020 2:47 PM Thank you for letting us participate in the care of this patient. For questions regarding this report, please contact the number below. ? Electronically signed by: Prahbu Dean MD, [facility] ([phone]), at 05/25/2020 2:47 PM Narrative 05/25/2020 2:47 PM EST EXAMINATION: XR SCOLIOSIS OR TOTAL SPINE 2 VIEW CLINICAL HISTORY: SCOLIOSIS TECHNIQUE: PA and lateral views of the total spine COMPARISON: Multiple scoliosis radiographs dating back to 11/10/2013 FINDINGS: Again noted is a rightward curvature of the rostral thoracic spine measuring approximately 32 degrees when measured from the superior endplate of T8 to the inferior endplate of T12, as previously, unchanged from prior. No significant pelvic tilt. As seen on prior examinations, there are 12 right-sided ribs and 11 left-sided ribs. 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 There is a diffuse left hemivertebra at T7. There is a right hemivertebrae at T9. These are unchanged. Reversal of cervical lordosis, unchanged. Normal thoracic kyphosis and lumbar lordosis. No spondylolisthesis. Procedure Note Prabhu Dean MD - 05/25/2020 EXAMINATION: XR SCOLIOSIS OR TOTAL SPINE 2 VIEW CLINICAL HISTORY: SCOLIOSIS TECHNIQUE: PA and lateral views of the total spine COMPARISON: Multiple scoliosis radiographs dating back to 11/10/2013 FINDINGS: Again noted is a rightward curvature of the rostral thoracic spinemeasuring approximately 32 degrees when measured from the superior endplate of T8 tothe inferior endplate of T12, as previously, unchanged from prior. No significant pelvic tilt. As seen on prior examinations, there are 12 right-sided ribs and 11left-sided ribs. 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 There is a diffuse left hemivertebra at T7. There is a right hemivertebraeat T9. These are unchanged. Reversal of cervical lordosis, unchanged. Normal thoracic kyphosis andlumbar lordosis. No spondylolisthesis. IMPRESSION 1. Unchanged dextroscoliosis of the lower thoracic spine. 2. Similar vertebral bodies segmentation anomalies. I have personally reviewed the image(s) and the resident's interpretationand agree with the findings, Prabhu Dean MD at 05/25/2020 2:47 PM Thank you for letting us participate in the care of this patient. Forquestions regarding this report, please contact the number below. 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
--- OUTSIDE RECORDS SUMMARY | 2024-07-29 00:26 | XMS_ITS | Encounter Summary ---
Author Organization [facility] Address [facility] [place] [address] Care Team Providers Care Grievance And Appeals Coordinator Name Role Phone Florecita Pickard MD Primary Care Provider Unav ailable Encounter Details Date Type Department Care Team (Late st Contact Info) Description 06/01/2019 2:40 PM EST Office Visit [place] [address] Bina Agrawal, OD [facility] [place] [address] Emmetropia; Dry eyes, bilateral Social History Tobacco Use Types Packs/Day Years Used Date Smoking Tobacco: Never Smokeless Tobacco: Never Comments:no one smokes at [facility] Alcohol Use Standard Drinks/Week Comments No 0 (1 standard drink = 0.6 oz pur e alcohol) Sex and Gender Information Value Date Recorded Sex Assigned at Female 07/24/2023 9:35 AM EST Gender Identity Female 07/24/2023 9:35 AM EST Sexual Orientation Straight 07/24/2023 9: 35 AM EST documented as of this encounter Patient Instructions * Patient Instructions* Bina Agrawal, OD - 06/01/2019 2:40 PM EST For dry eye, use AM and PM [...] Progress Notes * Bina Agrawal, OD - 06/01/2019 2:40 PM EST Encounter Diagnoses Name Primary? Dry eyes, bilateral ??? Emmetropia Ely Mahmood is a 14 y.o. with the following ophthalmic problems: Assessment [...] Info) Description 08/08/2024 9:00 AM EST Appointment [facility] [address] [address] Umu Saucedo RN 08/15/2024 10:45 AM EST TH Visit (TeleHealth) Obstetrics [place] [address] Dara Kelley MD [facility] OBSTETR[facility] [place] [address] 11/25/2024 Hospital [place] [phone] Dara [place] MD [facility] OBSTETRICS [place] [address] 07/12/2025 1:40 PM EST Office Visit [place] [phone] Bina Agrawal, JONELLE [facility] [place] [address] documented as of this encounter Visit Diagnoses Diagnosis Emmetropia Screening for other eye conditions Dry eyes, bilateral Tear film insufficiency, unspecified documented in this encounter Care Teams Grievance And Appeals Coordinator Relationship Specialty Start Date End Date Florecita Pickard MD PCP - General Pediatrics 11/25/16 10/04/19 documented as of this encounter
--- OUTSIDE RECORDS SUMMARY | 2024-07-29 00:26 | XMS_ITS | Encounter Summary ---
Author Organization [facility] Address [facility] [place] [address] Care Team Providers Care Laundry Operator Wash Room Name Role Phone Florecita Pickard MD Primary Care Provider Unav ailable Reason for Visit * Reason Comments Follow-up Here with Sabiha payne Encounter Details Date Type Department Care Team (Latest Contact Info) Description 04/12/2019 3:30 PM EDT Office Visit Pediatrics at [address] [address] Florecita Pickard MD Encounter for contraceptive management, unspecified type Social History Tobacco Use Types Packs/Day Years Used Date Smoking Tobacco: Never Smokeless Tobacco: Never Comments:no one smokes at [facility] Alcohol Use Standard Drinks/Week Comments [...] Reading Time Taken Comments Blood Pressure 110/62 04/12/2019 3:50 PM EDT Pulse - - Temperature - - Respiratory Rate - - Oxygen Saturation - - Inhaled Oxygen Concentration - - Weight 51.1 kg (112 lb 9.6 oz) 04/12/2019 3:50 P M EDT Height 149.9 cm (4' 11) 04/12/2019 3:50 PM EDT Body Mass Index 22.74 04/12/2019 3:50 PM EDT Body Mass Index Percentile 76.94% 04/12/2019 3:5 0 PM EDT Growth Chart: [facility] (Girls, 2- 20 Years) documented in this encounter Progress Notes * Florecita Pickard MD - 04/12/2019 3:30 PM EDT Assessment: Ely Mahmood is a 14 y.o. with history of depression, anxiety, and multiple social stressors, who is presenting for follow up of control and mood. Overall things are going much better for Ely. She has not missed any school this quarter. Her abdominal pain and headaches are improved and she thinks they were related to stress from worrying about her sister who is no longer living with her and Gram. Her periods have ceased on Nexplanon (negative UPT today) and we discussed using barrier contraception in addition to having the Nexplanon. Had increased spotting and bleeding in initial few months after Nexplanon and ordered hemogram to check hemoglobin. Sleep and mood are also improved, grades improved as well. Plan: Follow up in 2-4 months Will call [phone] and OK to leave voicemail re: hemmogram Chief Complaint: Chief Complaint Patient presents with ??? Follow-up Here with grandmaMirna History of Present Illness: Control - Nexplanon (inserted 10/29): No spotting in over a month. Now not having periods. LMPwas Feb 10- Feb 2. Ely has been doing better since her last visit. She has not missed any days of school this quarter. She is doing better in her classes as well and is on the honor roll. 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 She is meeting with a mentor through [employer]. Complains of bellyache every other day or so, but still goes to school and the pain gets better on its own. Still having occasional headaches. With gram decided not to see Pedi neurology since the headaches were getting so much better. Since her sister Terra moved out, things have been better in terms of less stress for Ely and her grandmother. Ely says part of her stomach aches was stress and worrying. Her sleep is improved, she wakes up on schedule before her alarm and sometimes will still wake up in the middle of the night. It has been better with falling asleep. Wondering about checking iron level because still having some tired Mood is up. No irritability, no anger. Concentration is better. Acne is better now. Washing hair more. Had penetrative sex without barrier x1, had pain and stopped. With half-way boyfriend. PMH: Patient Active Problem List Diagnosis Code [...] hearing of right ear H90.72 ??? Depression F32.9 ??? Acute right-sided low back pain without sciatica M54.5 Vital Signs: BP 110/62 Ht 149.9 cm (4' 11) Wt 51.1 kg (112 lb 9.6 oz) BMI 22.74 kg/m?? Florecita Pickard MD * Arti Barajas MD - 04/12/2019 3:30 PM EDT The case was discussed at the time of the visit or immediately after the visit. The assessment and plan were formulated in discussion with me and I agree with them as documented. I have reviewed the history, physical exam, assessment and plan with the resident. documented in this encounter Miscellaneous Notes * Addendum Note - Almaz Martinez - 04/12/2019 3:30 PM EDTAddended by: ALMAZ MARTINEZ on: 04/13/2019 07:38 AM Modules accepted: Orders documented in this encounter Plan of Treatment Upcoming Encounters Date Type Department Care Team (Late st Contact Info) Description 08/08/2024 9:00 AM EST Appointment [address] [address] Umu Saucedo RN 08/15/2024 10:45 AM EST TH Visit (TeleHealth) Obstetrics [place] [phone] Dara Kelley MD [facility] [place] [address] 11/25/2024 Hospital [place] [phone] Dara [place] MD [facility] [address] [place] [address] 07/12/2025 1:40 PM EST Office [place] [phone] Bina Agrawal OD [facility] [place] [address] documented as of this encounter Procedures Procedure Name Priority Date/Time Associated Diagnosis Comments HC VENIPUNCTURE Routine 04/12/2019 5:15 PM EDT Encounter for contraceptive management, unspecified type LAVENDER TUBE HOLD Routine 04/12/2019 5: 15 PM EDT POCT URINE Routine 04/12/2019 4:35 PM EDT Encounter for contraceptive management, unspecified type documented in this encounter Results * Lavender Tube HOLD (04/12/2019 5:15 PM EDT) Lavender Hold Sample in lab. [facility] Blood specimen (specimen) No Charge / Unknown 04/12/2019 5:15 PM EDT 04/12/2019 5:24 PM EDT Florecita Pickard MD HEMATOLOGY ORDERABL ES [facility] [place] [address] * (ABNORMAL) Hemogram (04/12/2019 5:15 PM EDT) White Blood Cell 9.8 4.5 - 13.0 x10(3)/mc L [facility] Red Blood Cell 5.12(H) 4.10 - 5.10 x10(6)/mc L [facility] Hemoglobin 14.6 12.0 - 16.0 gm/dL [facility] Hematocrit 45.3 36.0 - 46.0 % [facility] Mean Cell Volume 88.5 76.0 - 98.0 fL [facility] Mean Cell Hemoglobin 28.5 25.0 - 35.0 pg [facility] Mean Cell Hemoglobin Concentration 32.2 32.0 - 36.5 gm/dL [facility] Platelet 391(H) 145 - 370 x10(3)/mc L [facility] RDW Standard Deviation 37.9 37.0 - 46.0 fL [facility] RDW coefficient of variation 11.8 0.0 - 14.5 % [facility] Mean Platelet Volume 10.5 7.6 - 12.9 fL [facility] NRBC% auto 0.0 % [facility] NRBC Absolute 0.000 0.000 - 0.000 x10(3)/mc L [facility] Blood specimen (specimen) 04/12/2019 5:15 PM EDT 04/13/2019 7:05 AM EDT Narrative Resulting Agency Comment Spec In Lab Arti Barajas MD HEMATOLOGY ORDERABL ES [facility] [place] [address] * POCT urine (04/12/2019 4:35 PM EDT) POC Urine HCG Negative Negative - Negative POC Control Internal Controls Acceptable Urine specimen (specimen) 04/12/2019 4:35 PM EDT Arti Barajas MD POINT OF CARE TEST ORDERABLES documented in this encounter Visit Diagnoses Diagnosis Encounter for contraceptive management, unspecified type documented in this encounter Care Teams Laundry Operator Wash Room Relationship Specialty Start Date End Date Florecita Pickard MD PCP - General Pediatrics 11/25/16 10/04/19 documented as of this encounter
--- OUTSIDE RECORDS SUMMARY | 2024-07-29 00:26 | XMS_ITS | Encounter Summary ---
Author Organization [facility] Address [facility] [place] [address] Care Team Providers Care Electric Vehicle Electrician Name Role Phone Florecita Pickard MD Primary Care Provider Unav ailable Reason for Visit * Reason Comments Follow-up Encounter Details Date Type Department Care Team (Late st Contact Info) Description 06/21/2019 4:00 PM EST Office Visit Pediatrics at [address] [address] Florecita Pickard MD Depression, unspecified depression type Social History Tobacco Use Types Packs/Day Years Used Date Smoking Tobacco: Never Smokeless Tobacco: Never Comments:no one smokes at [facility] Alcohol Use Standard Drinks/Week Comments [...] Sign Reading Time Taken Comments Blood Pressure 128/78 06/21/2019 4:06 PM EST Pulse - - Temperature - - Respiratory Rate - - Oxygen Saturation - - Inhaled Oxygen Concentration - - Weight 51.4 kg (113 lb 4.8 oz) 06/21/2019 4:06 P M EST Height 149.2 cm (4' 10.75) 06/21/2019 4:[address] Body Mass Index 23.08 06/21/2019 4:06 PM EST Body Mass Index Percentile 78.44% 06/21/2019 4:0 6 PM EST Growth Chart: [facility] (Girls, 2- 20 Years) documented in this encounter Progress Notes * Florecita Pickard MD - 06/21/2019 4:00 PM EST Assessment/Plan: Ely Mamhood is a 14 y.o. female with history of 29 week prematurity, depression, scoliosis, hearing loss, who is presenting for follow up of depression. Overall her mood is improved, with improved PHQ-9 and negative GAD7 today. She has improved grades in school. She continues to be satisfied with her LARC (Nexplanon) and condoms were provided today as she is using these as barrier protection. Sleep continues to be an issue but is related to screen and media usage. We discussed sleep hygeine again today. Ely has not been using any treatment for her acne, but is eager to try face washing and Benzoclin which was previously prescribed. Return to Clinic for: 15 year old C, sooner as needed Chief Complaint: Chief Complaint Patient presents with ??? Follow-up History of Present Illness: Learning about sex ed in school Control: Periods still gone Currently is sexually active with one partner Using condoms in addition to Nexplanon (more given to Ely today) Acne: Sporadically washes face Has topical antibiotic but not using Sleep: Sleeps through the night Having trouble falling asleep - on phone and doing things before bed. Off routine since the holidays. School: School is going well. Moving to [employer] classes next term. All A's in the first quarter. Mood/Anxiety: PHQ-9: minimal depression GAD7: no anxiety Review of Systems: No fevers No rashes No vomiting or diarrhea Occasional abdominal pain No blood in stool No constipation - having daily non-painful stools Occasional headache - ~twice a week (one was associated with a cold). Headaches better laying down. Snoring has resolved PMH: Patient Active Problem List Diagnosis Code [...] pain without sciatica M54.5 Vital Signs: BP 128/78 Ht (!) 149.2 cm (4' 10.75) Wt 51.4 kg (113 lb 4.8 oz) BMI 23.08 kg/m?? PHYSICAL EXAM: General: alert, cooperative w/ exam, in NAD Skin: warm, dry, no rashes HEENT: NC/AT, PERRL, scattered acne on face, no nasal drainage, OP clear and without erythema, no cervical lymphadenopathy Resp: clear to auscultation bilaterally, no wheezing, no cough CV: Regular rate and rhythm, HS1+2 present nil added, cap refill <3s, peripheral pulses present Abd: abdomen is soft, non-tender, non-distended, normoactive bowel sounds Ext: all intact, no visible malformations, capillary refill<2seconds Neuro: CN II-XII intact, strength 5/5 in UE and LE, normal gait, DTR 2+ Florecita Pickard MD * Wendy Ewing MD - 06/21/2019 4:00 PM EST The case was discussed at [...] Description 08/08/2024 9:00 AM EST Appointment [address] [phone] Umu Saucedo, RN 08/15/2024 10:45 AM EST TH Visit (TeleHealth) Obstetrics and Gynecology at [place] [phone] Dara Kelley MD [facility] OBSTETRICS [place] [address] 11/25/2024 Hospital Encounter Birthing [place] [phone] Dara Gonzalez MD [facility] OBSTETRICS [place] [address] 07/12/2025 1:40 PM EST Office Visit Ophthalmology at [place] [phone] Bina Agrawal OD [facility] [place] [address] documented as of this encounter Visit Diagnoses Diagnosis Depression, unspecified depression type documented in this encounter Care Teams Electric Vehicle Electrician Relationship Specialty Start Date End Date Florecita Pickard MD PCP - General Pediatrics 11/25/16 10/04/19 documented as of this encounter
--- OUTSIDE RECORDS SUMMARY | 2024-07-29 00:26 | XMS_ITS | Encounter Summary ---
Author Organization [facility] Address [facility] [place] [address] Care Team Providers Care Lighter Name Role Phone Jorge Moser MD Primary Care Provider [phone] Encounter Details Date Type Department Care Team (Late st Contact Info) Description 10/26/2019 Notes Only Pediatrics at [address] [address] Florecita Pickard MD Social History Tobacco Use Types Packs/Day Years Used Date Smoking Tobacco: Never Smokeless Tobacco: Never Comments:no one smokes at [facility] Alcohol Use Standard Drinks/Week Comments No 0 (1 standard drink = 0.6 oz pur e alcohol) Sex and Gender Information Value Date Recorded Sex Assigned at Female 07/24/2023 9:35 AM EST Gender Identity Female 07/24/2023 9:35 AM EST Sexual Orientation Straight 07/24/2023 9: 35 AM EST documented as of this encounter Progress Notes * Florecita Pickard MD - 10/26/2019 10:59 PM EDT TRANSITION PLANNING NOTE Ely Mahmood 2005 10/26/19 Jorge Moser MD Supervising attending: Dr. Ewing The following items will need to be addressed in the next year . These items can also be found in the problem list or care coordination note. 1. Depression Has had improved PHQ-9 scores over the course of 7310-5969, with early discussions about consideration of medical management in addition to counseling through school system. Ely has not been inclined to try medications up to this point. In school year 1996-7473 had increasing school absences, which improved for 2019. 2. control Nexplanon 10/2018 No longer has periods, is sexually active and also uses condoms for barrier contraceptions 3. Acne Will intermittently express interest in treating acne, Benzaclin previously prescribed as well as changes including washing hair to avoid greasiness, pillow changes, avoiding comedogenic creams and makeup 4. Sleep Has history of difficulty falling asleep, discloses poor sleep hygiene As of today, these are the current active issues: Patient Active Problem List Diagnosis ??? Encounter for female control Nexplanon inserted 10/2018 Uses condoms for barrier contraception in addition to nexplanon, these are provided at visits ??? Depression PHQ-9 with mild depression 08/2018. Started discussion regarding pharmacological therapy. Sees counselor at school through [employer] Symptoms of depression improved at follow up. ??? High risk social situation Has lived with paternal grandparents since 1 yo, dad has visitation. Both parents have history of drug use. ??? 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 Wears hearing aid Wears hearing aid in left year d/t conductive hearing loss. Audiology exam 04/2015 with normal hearing in left ear, does not need to wear hearing aid. F/u with audiology in 1 yr. ??? Conductive hearing loss, unilateral with unrestricted hearing on the contralateral side left with conductive hearing loss; right WNL ??? CIS - Poor sleep 04/2015: Discussed sleep hygiene, no screens 1 hour before bed 2019: Discussed sleep hygiene again, reinforced limiting screen time before bed ??? 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 Hemivertebra ??? 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 Normal renal U/S. 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 Followed annually by Dr. Garay. ??? Acne vulgaris Facial acne Has expressed interest in trialing medicated formulations, has not consistently used these in the past Benzaclin prescribed 2018 ??? Acute right-sided low back pain without sciatica documented in this encounter Plan of Treatment Upcoming Encounters Date Type Department Care Team (Late st Contact Info) Description 08/08/2024 9:00 AM EST Appointment [address] [phone] Umu Saucedo, RN 08/15/2024 10:45 AM EST TH Visit (TeleHealth) Obstetrics and Gynecology at [place] [phone] [facility] OBSTETRICS [place] [address] 11/25/2024 Hospital [place] [address] [facility] OBSTETRICS [place] [address] 07/12/2025 1:40 PM EST Office Visit Ophthalmology at [address] [facility] [place] [address] documented as of this encounter Visit Diagnoses Diagnosis High risk social situation Other problems related to lifestyle Depression, unspecified depression type Encounter for female control Other specified contraceptive management Acne vulgaris Other acne documented in this encounter Care Teams Lighter Relationship Specialty Start Date End Date Jorge Moser MD [facility] [place] [address] PCP - General Pediatrics 10/05/19 11/30/19 documented as of this encounter
--- OUTSIDE RECORDS SUMMARY | 2024-07-29 00:26 | XMS_ITS | Encounter Summary ---
Author Organization [facility] Address [facility] [place] [place] [address] Care Team Providers Care Railways Assistant Name Role Phone Judi Garces MD Primary Care Provider [phone] Reason for Visit * Reason Onset Date Comments Follow-up 12/06/2019 Encounter Details Date Type Department Care Team (Late st Contact Info) Description 12/06/2019 Telephone Pediatrics at [address] [phone] Jesús Baeza, RN Follow-up Social History Tobacco Use Types Packs/Day Years Used Date Smoking Tobacco: Never Smokeless Tobacco: Never Comments:no one smokes at [facility] Alcohol Use Standard Drinks/Week Comments No 0 (1 standard drink = 0.6 oz pur e alcohol) Sex and Gender Information Value Date Recorded Sex Assigned at Female 07/24/2023 9:35 AM EST Gender Identity Female 07/24/2023 9:35 AM EST Sexual Orientation Straight 07/24/2023 9: 35 AM EST documented as of this encounter Miscellaneous Notes * Telephone Encounter - Jesús Baeza, RN - 12/06/2019 1:12 PM EDT Spoke to Mom. Let her know that urine culture and labs were negative/normal. Dr. Caputo wanted tomake sure she is feeling better and Mom states that she is. Mom appreciated follow up call. documented in this encounter Plan of Treatment Upcoming Encounters Date Type Department Care Team (Late st Contact Info) Description 08/08/2024 9:00 AM EST Appointment [address] [phone] Umu Saucedo, RN 08/15/2024 10:45 AM EST TH Visit (TeleHealth) Obstetrics and Gynecology at [place] [phone] Dara Kelley MD [facility] OBSTETRICS [place] [address] 11/25/2024 [place] [address] Dara Gonzalez MD [facility] OBSTETRICS [place] [address] 07/12/2025 1:40 PM EST Office [place] [address] Bina Agrawal OD [facility] [place] [address] documented as of this encounter Visit Diagnoses Not on filedocumented in this encounter Care Teams Railways Assistant Relationship Specialty Start Date End Date Judi Garces MD [facility] [place] [address] PCP - General Pediatrics 12/01/19 11/29/20 documented as of this encounter
--- OUTSIDE RECORDS SUMMARY | 2024-07-29 00:26 | XMS_ITS | Encounter Summary ---
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 Expected removal date 10/29/21 1 each 10/29/2018 07/08/2021 CARYNARTURO MINESH C Spacer 09/07/2018 02/03/2023 calcium carbonate (TUMS) 200 [...] Description 08/08/2024 9:00 AM EST Appointment [address] [phone] Umu Saucedo RN 08/15/2024 10:45 AM EST TH Visit (TeleHealth) Obstetrics and Gynecology at [place] [phone] Dara Kelley MD [facility] DR [place] [address] 11/25/2024 Hospital Encounter Birthing [place] [phone] Dara Gonzalez MD [facility] DR [place] [address] 07/12/2025 1:40 PM EST Office Visit Ophthalmology at [place] [phone] Bina Agrawal OD [facility] [place] [address] documented as of this encounter Procedures Procedure Name Priority Date/Time Associated Diagnosis Comments XR SCOLIOSIS OR TOTAL SPINE 2 VIEW Routine 12/20/2018 3:58 PM EDT 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 Degree of spinal curvature is stable. Thank you for letting us participate in the care of this patient. For questions regarding this report, please contact the number below. ? Narrative 12/20/2018 4:58 PM EDT EXAMINATION: XR SCOLIOSIS OR TOTAL SPINE 2 VIEW CLINICAL HISTORY: congenital scoliosis TECHNIQUE: 2 views of the total spine COMPARISON: 07/09/2017. FINDINGS: Multiple thoracic upper and mid thoracic vertebral anomalies again noted with an associated scoliosis. No change in the degree of scoliosis since prior study. Again note that there are 12 right and 11 left ribs. There is a slight pelvic tilt with the left iliac crest slightly higher than the right. Procedure Note Edgar Arnett MD - 12/20/2018 EXAMINATION: XR SCOLIOSIS OR TOTAL SPINE 2 VIEW CLINICAL HISTORY: congenital scoliosis TECHNIQUE: 2 views of the total spine COMPARISON: 07/09/2017. FINDINGS: Multiple thoracic upper and mid thoracic vertebral anomalies again notedwith an associated scoliosis. No change in the degree of scoliosis since priorstudy. Again note that there are 12 right and 11 left ribs. There is a slightpelvic tilt with the left iliac crest slightly higher than the right. IMPRESSION Congenital scoliosis with multiple upper and mid thoracic vertebralanomalies. Degree of spinal curvature is stable. Thank you for letting us participate in the care of this patient. Forquestions regarding this report, please contact the number below. 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
--- OUTSIDE RECORDS SUMMARY | 2024-07-29 00:26 | XMS_ITS | Encounter Summary ---
Author Organization [facility], [facility]–1983 Address [facility] [place] [address] Care Team Providers Care Team Lead Name Role Phone Florecita Pickard MD Primary Care Provider Unav ailable Reason for Visit * Reason Comments Other Here with grandmothe r, Felline and sister; c/o continued GI issues x several mths, OTC and previous dr suggestions not helping; no tylenol Encounter Details Date Type Department Care Team (Late st Contact Info) Description 09/07/2018 4:00 PM EDT Office Visit Pediatrics at [address] [phone] Florecita Pickard MD Chronic abdominal pain Social History Tobacco Use Types Packs/Day Years [...] Sign Reading Time Taken Comments Blood Pressure 120/72 09/07/2018 4:00 PM EDT Pulse - - Temperature 36.6 ??C (97.8 ??F) 09/07/2018 4:00 PM ED T Respiratory Rate - - Oxygen Saturation - - Inhaled Oxygen Concentration - - Weight 48.4 kg (106 lb 9.6 oz) 09/07/2018 4:00 P M EDT Height - - Body Mass Index - - documented in this encounter Progress Notes * Florecita Pickard MD - 09/07/2018 4:00 PM EDT ID: Ely Mahmood is a 13 y.o. with high risk social situation who presents with chronic abdominal pain. Ely also continues to have depressed mood with PHQ-9 today scoring for mild depression. Assessment and Plan: Chronic Abdominal Pain: likely functional abdominal pain exacerbated by stressors, may be some element of GERD as Tums help -U/A normal, r/o UTI. Negative test at last visit -Will send TTG and IgA to r/o Celiac disease -ESR to r/o inflammatory condition -CMP to evaluate liver and renal function -CBC Although IBD, Celiac, liver disease are all unlikely in Ely given her presentation, her abdominal pain has become so significant that is impacting her daily activities and school attendance. Relevant negatives are absence of fevers, back pain, pain waking at night, dysphagia, emesis, diarrhea, absence of weight loss, negative family history of IBD and Celiac. At our visit today we discussed the importance of continuing to attend school as coming home and sleeping/texting is not a suitable alternative, and her grandmother agreed but is at a loss. Going to the school nurse to lie down and then going back to class can be an option for Ely. I will call Ely' grandmother with results once they are all back to discuss next steps. Ely will continue Tums (and lots of water) as they provide some relief. They will return in 2-3 weeks for follow up, or return sooner as necessary. We also discussed the option of referral to Pedi GI if the pain is ongoing. Depression: PHQ-9 scored for mild depression today, Ely flat and withdrawn and slow to respond. Sleep is poor, although there is poor sleep hygiene and lots of daytime napping. -Ely has had ongoing depressed mood >3months consistent with Major Depressive Disorder. -Started a discussion today about pharmacological therapy, which Ely and her grandmother will talkabout at home -Ely continues to see her therapist Sho (from [facility]) at school on Fridays. DAWSON is signed. Orders Placed This Encounter Procedures ??? Sedimentation rate ??? Comprehensive metabolic panel (non-fasting) ??? Tissue transglutaminase, IgA ??? IgA ??? Hemogram ??? POCT urine dipstick Chief Complaint: Chief Complaint Patient presents with ??? Other Here with grandmother, Felline and sister; c/o continued GI issues x several mths, OTC and previousdr suggestions not helping; no tylenol History of Present Illness: Ely is coming in with abdominal pain. She cannot pinpoint the location. It can be sudden or gradual and lasts for several hours to several days. She is not having diarrhea, but sometimes she feels like she is going to be sick, over the last few weeks. She has once had an episode of vomiting. Her appetite has not changed. No blood or mucous in her stool. No pain in her back. No rashes. Lying downand walking help the pain. The pain occurs in the morning. Sometimes she gets it at night, but it never wakes her up at night. When she calls home from school with the pain she comes home and sleeps. Taking the tums after our last visit helped a little bit but not much. She has not taking advil or tylenol for her stomach pain. She has had a headache a few times, but she thinks that was because she was dehydrated. Her grandfather is still in the hospital but is recovering well from his surgery. She missed a whole week of school recently, and also went home a few days. She has been going to the school nurse who won't let me go home anywhere. Her grandmother says she doesn't know what to dobecause she cries when she leaves for school and cries from school. She is suffering from fatigue. She is not sleeping right according to her grandmother. She is going to sleep at 11, sometimes later and wakes up at 6 for school. Last night she went to bed at 3. She is sleeping a lot during the day. She is having trouble concentrating at school. She denies guilt.She continues to see her counselor every Thursday. She has been washing her belly button piercing with saline solution and it is healing well. She is having occasional spotting on her Depo shot, last time was 2 weeks ago. Diet: Today had nachos for lunch, with cheese and meat. She skipped breakfast. Yesterday she ate rice krispie squares and had ramen noodles then chicken nuggets with fish stick (she didn't eat the vegetables). Their meals have been irregular since her grandfather has been in the hospital. She has been eating a lot of turkey and cheese wraps. She drinks sparkling ice drinks, milk at school, drinkssome coffee drinks. Usually at home will drink regular tea. School: no bullies, not stressed about school She also needs a refill of the inhaler. Review of Systems: Const: No fever. No sweats. HEENT: No visual changes. No hearing changes. No nasal discharge. No pain with swallowing. Neck: No neck pain or stiffness Resp: No cough, dyspnea, or wheezing GI: as above : No dysuria. MSK: No joint pain. No swelling. Skin: No bruising. No rashes. 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 Vital Signs: BP 120/72 Temp 36.6 ??C (97.8 ??F) (Oral) Wt 48.4 kg (106 lb 9.6 oz) PHYSICAL EXAM: General: alert, cooperative w/ exam, in NAD Skin: warm, dry, no rashes HEENT: NC/AT, PERRL, nasal drainage, OP clear and without erythema, no cervical lymphadenopathy Resp: CTAB, no wheezing, no cough CV: RRR, no M/R/G Abd: soft, non-tender, non-distended, normoactive bowel sounds, no hepatosplenomegaly Ext: all intact, no visible malformations, capillary refill<2seconds Neuro: grossly intact, moves all extremities equally Psych: flat affect and withdrawn, poor insight, good eye contact, slow to respond but normal speechcadence and rhythm. Florecita Pickard MD 09/07/2018 * Jorge Moser MD - 09/07/2018 4:00 PM EDT I was the attending physician supervising the resident in the above care. For the purposes of billing, the resident provided the care. Chronic abdominal pain and depressed mood. Without red flags. Mom consistent with functional abdominal pain which would be a diagnosis of exclusion. Labs as ordered to r/o common organic causes. Consider guaiac. Close f/u in 2 weeks to review diary and continue discussion of mood and abdominal pain. documented in this encounter Plan of Treatment Upcoming Encounters Date Type Department Care Team (Late st Contact Info) Description 08/08/2024 9:00 AM EST Appointment [address] [phone] Umu Saucedo RN 08/15/2024 10:45 AM EST TH Visit (TeleHealth) Obstetrics [place] [phone] Dara Kelley MD [facility] OBSTETRICS [place] [address] 11/25/2024 Hospital [place] [phone] Dara Gonzalez MD [facility] OBSTETRICS [place] [address] 07/12/2025 1:40 PM EST Office Visit Ophthalmology at [facility] [place] [address] Nghia Bina, OD [facility] [place] [address] documented as of this encounter Procedures Procedure Name Priority Date/Time Associated Diagnosis Comments POCT URINE DIPSTICK Routine 09/07/2018 5 :39 PM EDT Chronic abdominal pain documented in this encounter Results * (ABNORMAL) Hemogram (09/27/2018 12:48 PM EDT) White Blood Cell 7.8 4.5 - 13.0 x10(3)/mc L [facility] Red Blood Cell 5.00 4.10 - 5.10 x10(6)/mc L [facility] Hemoglobin 14.5 12.0 - 16.0 gm/dL [facility] Hematocrit 44.4 36.0 - 46.0 % [facility] Mean Cell Volume 88.8 76.0 - 98.0 fL [facility] Mean Cell Hemoglobin 29.0 25.0 - 35.0 pg [facility] Mean Cell Hemoglobin Concentration 32.7 32.0 - 36.5 gm/dL [facility] Platelet 379(H) 145 - 370 x10(3)/mc L [facility] RDW Standard Deviation 37.7 37.0 - 46.0 fL [facility] RDW coefficient of variation 11.7 0.0 - 14.5 % [facility] Mean Platelet Volume 9.1 7.6 - 12.9 fL [facility] NRBC% auto 0.0 % [facility] NRBC Absolute 0.000 0.000 - 0.000 x10(3)/mc L [facility] Blood specimen (specimen) 09/27/2018 12:48 PM EDT 09/27/2018 12:52 PM EDT Narrative Resulting Agency Comment Spec In Lab Jorge Moser MD HEMATOLOGY ORDERABL ES Performing Organization Address [facility]/ZIP Co de Phone Number [facility] [place] [address] * IgA (09/27/2018 12:48 PM EDT) IgA 159 47 - 249 mg/dL [facility] Blood specimen (specimen) 09/27/2018 12:48 PM EDT 09/27/2018 12:52 PM EDT Narrative Resulting Agency Comment Spec In Lab Jorge Moser MD CHEMISTRY ORDERABLE S Performing Organization Address [facility] Co de Phone Number [facility] [place] [address] * Tissue transglutaminase, IgA (09/27/2018 12:48 PM EDT) TTG IgA Ab <1.2 <4.0 (Negative) unit/mL [facility] Comment: Test Performed by: [facility] [address] [place] [id number] Blood specimen (specimen) 09/27/2018 12:48 PM EDT 09/27/2018 2:34 PM EDT Narrative Resulting Agency Comment Spec In Lab Jorge Moser MD IMMUNOLOGY ORDERABL ES Performing Organization Address [facility]/ZIP Co de Phone Number [facility] [place] [address] * (ABNORMAL) Comprehensive metabolic panel (non-fasting) (09/27/2018 12:48 PM EDT) Glucose 81 65 - 199 mg/dL [facility] Comment:Diabetes: >=200 mg/d L plus symptoms Blood Urea Nitrogen 10 10 - 20 mg/dL [facility] Creatinine 0.92(H) 0.46 - 0.86 mg/dL [facility] Sodium 140 135 - 145 mmol/L [facility] Potassium 4.1 3.5 - 5.0 mmol/L [facility] Comment: Please note: ??Patients with WBC >100,000 may have falsely elevated Potassium levels. ??For accurate Potassium quantification in these patients send serum separator tube (gold top) for subsequent determinations. ??Contact the Clinical Chemistry Laboratory if there are any questions. Chloride 103 98 - 107 mmol/L [facility] Carbon Dioxide 24 22 - 31 mmol/L [facility] Anion Gap 13 5 - 15 mmol/L [facility] Calcium 9.6 8.5 - 10.5 mg/dL [facility] Protein, Total 8.1(H) 5.7 - 8.0 gm/dL [facility] Albumin 4.8 3.3 - 4.9 gm/dL [facility] Aspartate Aminotransferase 18 5 - 30 unit/L [facility] Alanine Aminotransferase 9 0 - 25 unit/L [facility] Alkaline Phosphatase 62(L) 80 - 250 unit/L [facility] Bilirubin, Total 0.5 <=1.0 mg/dL [facility] Est Glomerular Filtration Rate See note >=60 mL/min/1. 73 m?? [facility] Comment: The eGFR for patients less than 18 years of age should be calculated using the Carlson formula. GFR = (0.413 x Height in cm)/serum creatinine. The eGFR was calculated using the CKD-EPI equation. As with all creatinine based estimates of kidney function, eGFR values calculated with the CKD-EPI equation are not accurate in patients with acute kidney failure, extremes of body mass or the acutely ill. [email or web address]QUAHnkf eGFR See note >=60 mL/min/1. 73 m?? [facility] Comment: The eGFR for patients less than 18 years of age should be calculated using the Carlson formula. GFR = (0.413 x Height in cm)/serum creatinine. The eGFR was calculated using the CKD-EPI equation. As with all creatinine based estimates of kidney function, eGFR values calculated with the CKD-EPI equation are not accurate in patients with acute kidney failure, extremes of body mass or the acutely ill. [email or web address] Blood specimen (specimen) 09/27/2018 12:48 PM EDT 09/27/2018 12:52 PM EDT Narrative Resulting Agency Comment Spec In Lab Jorge Moser MD CHEMISTRY ORDERABLE S Performing Organization Address [facility]/ZIP Co de Phone Number [facility] [place] [address] * Sedimentation rate (09/27/2018 12:48 PM EDT) Sedimentation Rate Automated 6 0 - 20 mm/hr [facility] Blood specimen (specimen) 09/27/2018 12:48 PM EDT 09/27/2018 12:52 PM EDT Narrative Resulting Agency Comment Spec In Lab Jorge Moser MD HEMATOLOGY ORDERABL ES Performing Organization Address [facility] Co de Phone Number [facility] [place] [address] * POCT urine dipstick (09/07/2018 5:39 PM EDT) POC Sp [place] 1.020 1.002 - 1.030 POC pH, UA 5 5.0 - 8.5 POC Leuk, UA negative Negative - Negative POC Nitrite, UA negative Negative - Negative POC Protein, UA trace Negative - Negative mg/dL POC Glucose, UA normal Normal - Normal mg/dL POC Ketone, UA negative Negative - Negative POC Urobil, UA normal 0.2 - 1.0 mg/dL POC Bili, UA negative Negative - Negative POC Blood, UA negative Negative - Negative jones/uL 09/07/2018 5:39 PM EDT Jorge Moser MD POINT OF CARE TEST ORDERABLES documented in this encounter Visit Diagnoses Diagnosis Chronic abdominal pain Abdominal pain, unspecified site documented in this encounter Care Teams Team Lead Relationship Specialty Start Date End Date Florecita Pickard MD PCP - General Pediatrics 11/25/16 10/04/19 documented as of this encounter
--- OUTSIDE RECORDS SUMMARY | 2024-07-29 00:26 | XMS_ITS | Encounter Summary ---
Author Organization [facility] [place] [address] Care Team Providers Care Microgrinder Operator Name Role Phone Florecita Pickard MD Primary Care Provider Unav ailable Reason for Referral * Consultation (Routine) - Specialty Diagnoses / Procedures Referred By Radha arroyo Referred To Contact Orthotics Diagnoses Acute right-sided low back pain without sciatica Eunice Fountain APRN [facility] [place] [address] Referral ID Status Reason Start Date Expiration Date V isits Requested Visits Authorized [id number] Consult, Test & Treat 12/20/2018 06/18/2019 1 1 Reason for Visit * Reason Comments Follow-up back pain hx of scol i Encounter Details Date Type Department Care Team (Late st Contact Info) Description 12/20/2018 4:30 PM EDT Office [place] [address] Eunice Fountain APRN [facility] [place] [address] Acute right-sided low back pain without sciatica; 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 Social History Tobacco Use Types Packs/Day Years Used Date Smoking Tobacco: Never Smokeless Tobacco: Never Comments:no one smokes at [facility] Alcohol Use Standard Drinks/Week Comments No 0 [...] Reading Time Taken Comments Blood Pressure 120/72 12/20/2018 4:10 PM EDT Pulse 86 12/20/2018 4:10 PM EDT Temperature - - Respiratory Rate - - Oxygen Saturation - - Inhaled Oxygen Concentration - - Weight 48 kg (105 lb 14.4 oz) 12/20/2018 4:10 PM EDT measured Height 149.9 cm (4' 11) 12/20/2018 4:10 PM EDT measured Body Mass Index 21.39 12/20/2018 4:10 PM EDT Body Mass Index Percentile 67.36% 12/20/2018 4:1 0 PM EDT Growth Chart: CDC (Girls, 2- 20 Years) documented in this encounter Progress Notes * Eunice Teague, KINGSLEY - 12/20/2018 4:30 PM EDT End of school 8th HPI: Ely is a 13 year old female who presents to clinic today in follow-up of her congenital scoliosis.She presents to clinic today with her grandmother. She has been followed by Dr. Garay and Dr. Hill in the past. She has not had significant growth since her last visit. She does not think that shape of her spine has changed. She does have pain in her mid to lower back. This is more off to the rightside. This started at the end of the school year. There was no injury. She did not have any new activities during that time. This was gradual in nature. She does not wake up with pain. She notes thatheat sometimes helps and massage helps. She has no pain in her legs. No complaints of numbness or tingling. Review of Systems: No pain today. Physical Exam: Ely is a healthy appearing, normally proportioned 13 y.o. year old female in no apparent distress.She walks with a coordinated heel to toe gait with slight right internal foot progression. She is able to single limb stand bilaterally. As she stands, her shoulders are level. Pelvis is level and there is no obvious leg length discrepancy. On forward bend, right thoracic prominence is noted. She is able to forward flex, bringing her hands down to the level of her proximal tibia. Ely is able to extend through their lumbar spine and side to side bend without pain. She is nontender on palpation of her cervical, thoracic, or lumbar spine. She has tenderness of the paraspinals over the right side of her thoracic spine. Bilateral lower extremities are well-developed. Negative straight leg raise. There is supple range of motion through hips, knees, and ankles. Popliteal angles are 40 degrees. Motor function is 5/5 for hip flexors, quadriceps, hamstrings, tibialis anterior, and gastroc soleus. Sensation is intact to light touch throughout. Deep tendon reflexes are 2+ and symmetric.There is no clonus. X-rays: X-rays today show a congenital scoliosis with no significant change in curve size. Risser 5. Assessment and Plan: Ely is a 13 year old female with congenital scoliosis. Discussed the clinical and radiographic findings with them today. There has not been a significant change in regards to the scoliosis. She doeshave tightness in her hamstrings today in addition to tenderness over her paraspinals. We discussedmoving forward with physical therapy to work on strengthening and stretching exercises. She should do these daily. We will have her return to clinic in 2-3 months if her pain is not improving and we will consider an MRI. They are in agreement with this plan and have our contact information if they have any questions or concerns in the interim. documented in this encounter Plan of Treatment Upcoming Encounters Date Type Department Care Team (Late st Contact Info) Description 08/08/2024 9:00 AM EST Appointment [address] [address] Umu Saucedo RN 08/15/2024 10:45 AM EST Visit (TeleHealth) Obstetrics [place] [address] Dara Kelley MD [facility] [place] [address] 11/25/2024 Hospital Encounter Birthing [place] [phone] Dara Gonzalez MD [facility] [place] [address] 07/12/2025 1:40 PM EST Office Visit Ophthalmology at [place] [phone] Bina Agrawal OD [facility] [place] [address] Scheduled Referrals Name Type Priority Associated Diagnoses Orde r Schedule Referral for Orthotics Outpatient Referral Routine Acute right-sided low back pain without sciatica Ordered: 12/20/2018 documented as of this encounter Visit Diagnoses Diagnosis Acute right-sided low back pain without sciatica 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
--- OUTSIDE RECORDS SUMMARY | 2024-07-29 00:26 | XMS_ITS | Encounter Summary ---
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 Judi Garces MD [facility] [address] [address] Referral ID Status Reason Start Date Expiration Date V isits Requested Visits Authorized [id number] Closed Evaluate and Treat 04/30/2020 04/30/2021 12 12 * Consultation (Routine) - Closed Specialty Diagnoses / Procedures Referred By Contac t Referred To Contact Orthopaedics Diagnoses 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 Lower, mid back. 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 Social History Tobacco Use Types Packs/Day Years Used Date Smoking Tobacco: Never Smokeless Tobacco: Never Comments:no one smokes at [facility] Alcohol Use Standard Drinks/Week [...] Sign Reading Time Taken Comments Blood Pressure 118/76 04/30/2020 1:09 PM EST Pulse - - Temperature 36.9 ??C (98.4 ??F) 04/30/2020 1:09 PM ES T Respiratory Rate - - Oxygen Saturation - - Inhaled Oxygen Concentration - - Weight 52.7 kg (116 lb 3.2 oz) 04/30/2020 1:09 P M EST Height 149.9 cm (4' 11) 04/30/2020 1:09 PM EST Body Mass Index 23.47 04/30/2020 1:09 PM EST Body Mass Index Percentile 77.88% 04/30/2020 1:0 9 PM EST Growth Chart: [facility] (Girls, 2- 20 Years) documented in this encounter Patient Instructions * Patient Instructions* Judi Caputo - 04/30/2020 1:30 PM EST Back Pain 1. Re-refer to orthopedics for scoliosis 2. Start Physical Therapy (referral sent) Spotting 1. Take Ibuprofen 600mg 3 times a day for 5 days to see if this stops the bleeding Headaches 1. Keep a headache diary to keep track of when you are getting headaches and if there is anything that might be causing them 2. Call if you have any other symptoms when the headaches happen (you feel dizzy, you are vomiting,you're vision or hearing changes) documented in this encounter Progress Notes * Judi Caputo - 04/30/2020 1:30 PM EST Assessment: Ely Mahmood is a 15 y.o. with known scoliosis here for ongoing back pain primarily in her mid-lower back. Ely has been followed in the past by orthopedics for back pain and given reassuringexam, suspect pain is related to this. She had a follow up a little less than 1 year ago with orthopedics, but cancelled subsequent visits for initial improvement in back pain. She has also been referred to PT in the past, but has not tried this. Recommend starting with PT and re-engage with orthopedics as past notes did state they might recommend further imaging if she were to have ongoing pain.Discussed reasons to return or seek care sooner including decreased ROM or numbness/tingling to suggest worsening process. Will plan to follow-up at [facility] in spring or sooner if needed. For spotting, we discussed trial of Ibuprofen 600mg TID for 5 days and to call if this does not help. We also discussed headaches that reassuring in nature given long standing duration of symptoms, timing and quality of headaches that sounds most consistent with tension type [place]. Will have Ely complete a headache diary and discussed reasons to seek care including neurologic symptoms or worsening/change in headache pattern. Plan: -Re-refer to orthopedics for scoliosis -Start Physical Therapy (referral sent) -Take Ibuprofen 600mg 3 times a day for 5 days to see if this stops the bleeding -Keep a headache diary to keep track of when you are getting headaches and if there is anything that might be causing them -Call if you have any other symptoms when the headaches happen (you feel dizzy, you are vomiting, you're vision or hearing changes) Return to Clinic for: Prn worsening Chief Complaint: Chief Complaint Patient presents with ??? Back Pain No known injury, has been bothering her for awhile. Lower, mid back. History of Present Illness: Ely is here today for back pain and to get her flu shot States she has scoliosis and has had back pain in the past No known injury Has been hurting for awhile and more recently has gotten worse (over the course of a few months) No dysuria No numbness or tingling and no weakness Does not get in the way of daily activities, she will go for walks with her dog No fevers Had viral URI sx's about 2 weeks ago that improved shortly after Also has questions about spotting with nexplanon Will have short lasting, small amounts of spotting every few days initally had spotting with nexplanon placement but then went months without any bleeding Hasn't tried anything for it No other symptoms No cramping or pain Ely also states she has had chronic headaches that she would like to address They do not wake her from sleep (often happen afternoon or night time); has disregulated sleep pattern- stays up late and wakes very early in AM and is often unable to stay asleep, will use phone when she is having difficulty sleeping No change in vision or hearing No LOC No vomiting Review of Systems: Negative except above PMH: Patient Active Problem List Diagnosis Code [...] right-sided low back pain without sciatica M54.5 ??? Encounter for female control Z30.019 ??? Acne vulgaris L70.0 Vital Signs: BP 118/76 Temp 36.9 ??C (98.4 ??F) (Oral) Ht (!) 149.9 cm (4' 11) Wt 52.7 kg (116 lb 3.2 oz) BMI 23.47 kg/m?? PHYSICAL EXAM: Gen: Alert, awake and well appearing HEENT: Moist mucous membranes, nares patent, oropharynx clear, no cervical lymphadenopathy Lungs: Clear to ascultation bilaterally, without increased work of breathing, no retractions or nasal flaring CV: Regular rhythm, normal rate, no murmurs, capillary refill < 2 seconds Abd: Soft and non-tender, no masses MSK: FROM of back, no pain with straight leg raise, non-tender to palpation Neuro: 5/5 strength in all extremities, sensation to light touch in tact Skin: No rashes or lesions Judi Caputo MD * Tammy Llanos MD - 04/30/2020 1:30 PM EST The case was discussed [...] Description 08/08/2024 9:00 AM EST Appointment [address] [phone] Umu Saucedo RN 08/15/2024 10:45 AM EST TH Visit (TeleHealth) [place]stetrics [place] [address] Dara Kelley MD [facility] DR OBST[place] [address] 11/25/2024 Hospital En[place] [phone] Dara Gonzalez MD [facility] [place] [address] 07/12/2025 1:40 PM EST Office [place] [phone] Bina Agrawal OD [facility] [place] [address] Scheduled Referrals Name Type Priority Associated Diagnoses Orde r Schedule Referral to Orthopaedics Outpatient Referral Routine 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
--- OUTSIDE RECORDS SUMMARY | 2024-07-29 00:26 | XMS_ITS | Encounter Summary ---
Author Organization [facility] [place] [address] Care Team Providers Care Remote Advisor Name Role Phone Judi Garces MD Primary Care Provider [phone]- [phone] Encounter Details Date Type Department Care Team (Late st Contact Info) Description 07/10/2020 [place] [phone] Carlton Bolanos, RN Social History Tobacco Use Types Packs/Day Years Used Date Smoking Tobacco: Never Smokeless Tobacco: Never Comments:no one smokes at [facility] Alcohol Use Standard Drinks/Week Comments No 0 (1 standard drink = 0.6 oz pur e alcohol) Sex and Gender Information Value Date Recorded Sex Assigned at Female 07/24/2023 9:35 AM EST Gender Identity Female 07/24/2023 9:35 AM EST Sexual Orientation Straight 07/24/2023 9: 35 AM EST documented as of this encounter Miscellaneous Notes * Telephone Encounter - Carlton Bolanos RN - 07/10/2020 12:35 PM EST High Threat Infection Intake Questions Nurse Triage Assessment Review of Pertinent Systems & Pertinent positive/negative findings (e.g. Skin, Neurological, Respiratory, Cardiac, GI, , and Musculoskeletal): Headache, sore throat When did your symptoms start? 07/09 People with any of these acute symptoms may have COVID-19: Detail of symptoms: Cough: No Shortness of Breath: No Fever: No Check all that apply: [] Fatigue [] Muscle or Body Aches [x] Headache [] New loss of taste or smell [x] Sore Throat [] Congestion or runny nose [] Nausea or vomiting [] Diarrhea Pediatrics: [] Retractions/belly breathing [] Skin/Lip color changes [] Wheezing [] Stridor [] Eating/Drinking normally [] Voiding normally Employee or household member at [facility]? No If yes, please state whether employee or household member: - If employee, check to see if qualifies for RAPID testing: No (Yes if employee scheduled to work in hospital in less than 24 hours and has *primary role in direct inpatient care or surgeon) *primary role: Attending, Resident/Accounts Payable Assistant, MEKA, RN, PET SITTER Have you been in contact with anyone suspected or confirmed to have COVID-19 in the past 14 days? No Any travel in the past 14 days? No If so, Where: - Date of departure: - Date of Return: - TESTING CRITERIA: Asymptomatic patients: Criteria for testing- member of or healthcare worker at a custodial/nursing home, jail facility or long term acute care registered nurse care facility (LTCF), and all first responders. Pre procedural patients requiring admission or determined high risk by provider. * patient/ employee returning to college/boarding school, returning to work requirement, or travel requirement. Exposure as determined by State, School, or Occupational Medicine at . Symptomatic Patients: People with COVID-19 have had a wide range of symptoms reported - ranging from mild symptoms to severe illness. Symptoms may appear 2-14 days after exposure to the virus. Consider testing if these symptoms cannot otherwise be explained. Plan/Disposition: If ordering test, ordering PCP: Judi Garces Date, time and location of test: 07/11 1430 [place] If sending for testing ask the following: First test for Covid-19: yes If not first covid test: date of previous test, type of test (molecular, antigen, antibody, or unknown), and result of previous test: - Employed in healthcare: no Symptomatic as defined by CDC: yes Resides in congregate care setting: no : no Name of Triage Guideline/Protocol used: Utilized High Threat Infection Screening for Covid 19 Hotline as directed by incident command and infectious disease based on CDC guidelines, [place] Department of Health and Human Services, and [facility] policy. Patient/Responsible green party voices an understanding of advice: yes Patient/Responsible green party intends to comply with actions/disposition: yes All Patients - If YES to exposure and NO to symptoms - Proceed with Quarantine Instructions. [facility], School, or Occupational Medicine may request testing. If NO to symptoms/exposure - Proceed with Nurse Triage - Proceed with appropriate instructions based on Triage protocol If YES to symptoms - Proceed with testing protocol - Proceed with Isolation instructions Important instructions for patient when scheduling for testing: -No dogs allowed in car unless in kennel or behind gated section, due to risk to the clinical staff. -Follow quarantine/isolation instructions (pamphlets available to hand out at testing location Education/Instructions: Isolation Instructions: 1. Stay home from work, school, and away from other public places. If you must go out, avoid using any kind of public transportation, ridesharing, or taxis. 2. Monitor your symptoms carefully. If your symptoms get worse, call your healthcare provider immediately. 3. Get rest and stay hydrated. 4. If you have a medical appointment, call the healthcare provider ahead of time and tell them thatyou have or may have COVID-19. 5. For medical emergencies, call 911 and notify the dispatch personnel that you have or may have COVID-19. 6. Cover your cough and sneezes. 7. Wash your hands often with soap and water for at least 20 seconds or clean your hands with an alcohol-based hand extruder operator helper that contains at least 60% alcohol. 8. As much as possible, stay in a specific room and away from other people in your home. Also, you should use a separate bathroom, if available. If you need to be around other people in or outside ofthe home, wear a facemask. 9. Avoid sharing personal items with other people in your household, like dishes, towels, and bedding 10. Clean all surfaces that are touched often, like counters, tabletops, and doorknobs. Use household cleaning sprays or wipes according to the label instructions. 11. You can use acetaminophen or ibuprofen as directed for fever. Emergency Warning Signs: If you develop emergency warning signs for COVID-19 get medical attention immediately. Emergency warning signs include: ??? Difficulty breathing or shortness of breath ??? Persistent pain or pressure in the chest ??? New confusion or inability to arouse ??? Bluish lips or face This list is not all inclusive. Please consult your medical provider for any other symptoms that are severe or concerning. Helpful definitions Close contact is described as: Being within approximately 6 feet (2 meters) of a COVID-19 case for a prolonged period of time; close contact can occur while caring for, living with, visiting, or sharing healthcare waiting area or room with a COVID-19 case. OR Having direct Contact with infectious secretions of a COVID-19 case (e.g., being coughed on) Fever Definition: 100.0 F or higher Additional information: ??? Recommend CDC website for helpful information on self-care and quarantine at home o https://www.cdc.gov/ and choose more information on Covid-19 *May test at [place] only. documented in this encounter Plan of Treatment Upcoming Encounters Date Type Department Care Team (Late st Contact Info) Description 08/08/2024 9:00 AM EST Appointment [address] [phone] Umu Saucedo RN 08/15/2024 10:45 AM EST TH Visit (TeleHealth) [place]stetrics [place] [phone] Dara Kelley MD [facility] OBSTETRICS [place] [address] 11/25/2024 Hospital [place] [phone] Dara Gonzalez MD [facility] OBSTETRICS [place] [address] 07/12/2025 1:40 PM EST Office [place] [address] Bina Agrawal, JONELLE [facility] [place] [address] documented as of this encounter Visit Diagnoses Not on filedocumented in this encounter Care Teams Remote Advisor Relationship Specialty Start Date End Date Judi Garces MD [facility] [place] [address] PCP - General Pediatrics 12/01/19 11/29/20 documented as of this encounter
--- OUTSIDE RECORDS SUMMARY | 2024-07-29 00:26 | XMS_ITS | Encounter Summary ---
Author Organization [facility] [place] [address] Care Team Providers Care Satellite Specialist Name Role Phone Florecita Pickard MD Primary Care Provider Unav ailable Encounter Details Date Type Department Care Team (Latest Contact Info) Description 09/27/2018 12:35 PM EDT Laboratory Appointment Lab [address] [place] [address] Chronic abdominal pain Social History Tobacco Use Types Packs/Day Years Used Date Smoking Tobacco: Never Smokeless Tobacco: Never Comments:no one smokes at [facility] Alcohol Use Standard Drinks/Week [...] Info) Description 08/08/2024 9:00 AM EST Appointment [address] [phone] Umu Saucedo RN 08/15/2024 10:45 AM EST TH Visit (TeleHealth) Obstetrics [place] [address] Dara Kelley MD [facility] [place] [address] 11/25/2024 Hospital Encounter [place] [address] Dara Gonzalez MD [facility] [place] [address] 07/12/2025 1:40 PM EST Office [place] [address] Bina Agrawal OD [facility] [place] [address] documented as of this encounter Procedures Procedure Name Priority Date/Time Associated Diagnosis Comments HEMOGRAM Routine 09/27/2018 12:48 PM EDT Chronic abdominal pain DIFFERENTIAL, AUTOMATED Routine 09/27/2018 12:48 PM EDT Chronic abdominal pain TISSUE TRANSGLUTAMINASE, IGA Routine 09/27/2018 12:48 PM EDT Chronic abdominal pain SEDIMENTATION RATE Routine 09/27/2018 12 :48 PM EDT Chronic abdominal pain CBC (WITH DIFF) Routine 09/27/2018 12:48 PM EDT Chronic abdominal pain IGA Routine 09/27/2018 12:48 PM EDT Chronic abdominal pain COMPREHENSIVE METABOLIC PANEL Routine 09/27/2018 12:48 PM EDT Chronic abdominal pain documented in this encounter Results * Differential, Automated (09/27/2018 12:48 PM EDT) Neutrophil % 57.5 % [facility] Neutrophil Absolute 4.47 1.50 - 8.00 x10(3)/[facility] Lymph % 29.0 % [facility] Lymphocytes Abs 2.2 1.2 - 5.2 x10(3)/[facility] Monocyte % 11.1 % [facility] Monocyte Abs 0.9 0.2 - 1.0 x10(3)/[facility]OR[facility] Eos % 1.3 % [facility] Eosinophils Abs 0.1 0.0 - 0.4 x10(3)/[facility] Basophil % 0.8 % [facility] Baso Absolute 0.1 0.0 - 0.1 x10(3)/[facility] LABORATORY Immature Gran % 0.30 % [facility] Comment: Immature granulocytes(IG's)percentage and absolute count will include metamyelocytes, myelocytes, and promyelocytes. Blood smears from CBCs yielding IG's will be scanned manually for concordance. If this scan disagrees with the automated IG or if promyelocytes are noted, a manual differential will be performed. Immature Gran Absolute 0.02 0.00 - 0.04 x10(3)/[facility] LABORAT[facility] Blood specimen (specimen) 09/27/2018 12:48 PM EDT 09/27/2018 12:52 PM EDT Narrative Resulting Agency Comment Spec In Lab Florecita Pickard MD HEMATOLOGY ORDERABL ES [facility] [place] [address] * (ABNORMAL) Hemogram (09/27/2018 12:48 PM EDT) White Blood Cell 7.8 4.5 - 13.0 x10(3)/ L [facility] Red Blood Cell 5.00 4.10 - 5.10 x10(6)/[facility] LABOR[facility] Hemoglobin 14.5 12.0 - 16.0 gm/dL [facility] Hematocrit 44.4 36.0 - 46.0 % [facility] Mean Cell Volume 88.8 76.0 - 98.0 fL [facility] Mean Cell Hemoglobin 29.0 25.0 - 35.0 pg [facility] Mean Cell Hemoglobin Concentration 32.7 32.0 - 36.5 gm/dL [facility] Platelet 379(H) 145 - 370 x10(3)/mc L [facility] RDW Standard Deviation 37.7 37.0 - 46.0 fL [facility] RDW coefficient of variation 11.7 0.0 - 14.5 % [facility] Mean Platelet Volume 9.1 7.6 - 12.9 fL [facility] NRBC% auto 0.0 % [facility] NRBC Absolute 0.000 0.000 - 0.000 x10(3)/mc L [facility] Blood specimen (specimen) 09/27/2018 12:48 PM EDT 09/27/2018 12:52 PM EDT Narrative Resulting Agency Comment Spec In Lab Jorge Moser MD HEMATOLOGY ORDERABL ES Performing Organization Address [facility] Co de Phone Number [facility] [place] [address] * IgA (09/27/2018 12:48 PM EDT) IgA 159 47 - 249 mg/dL [facility] Blood specimen (specimen) 09/27/2018 12:48 PM EDT 09/27/2018 12:52 PM EDT Narrative Resulting Agency Comment Spec In Lab Jorge Moser MD CHEMISTRY ORDERABLE S Performing Organization Address [facility] Co de Phone Number [facility] [place] [address] * Tissue transglutaminase, IgA (09/27/2018 12:48 PM EDT) TTG IgA Ab <1.2 <4.0 (Negative) unit/mL [facility] Comment: Test Performed by: [facility] [address] [facility], [place] [address] Blood specimen (specimen) 09/27/2018 12:48 PM EDT 09/27/2018 2:34 PM EDT Narrative Resulting Agency Comment Spec In Lab Jorge Moser MD IMMUNOLOGY ORDERABL ES [facility] [place] [address] * (ABNORMAL) Comprehensive metabolic panel (non-fasting) (09/27/2018 12:48 PM EDT) Glucose 81 65 - 199 mg/dL [facility] Comment:Diabetes: >=200 mg/d L plus symptoms Blood Urea Nitrogen 10 10 - 20 mg/dL [facility] Creatinine 0.92(H) 0.46 - 0.86 mg/dL [facility] Sodium 140 135 - 145 mmol/L [facility] Potassium 4.1 3.5 - 5.0 mmol/L [facility] Comment: Please note: ??Patients with WBC >100,000 may have falsely elevated Potassium levels. ??For accurate Potassium quantification in these patients send serum separator tube (gold top) for subsequent determinations. ??Contact the Clinical Chemistry Laboratory if there are any questions. Chloride 103 98 - 107 mmol/L [facility] Carbon Dioxide 24 22 - 31 mmol/L [facility] Anion Gap 13 5 - 15 mmol/L [facility] Calcium 9.6 8.5 - 10.5 mg/dL [facility] Protein, Total 8.1(H) 5.7 - 8.0 gm/dL [facility] Albumin 4.8 3.3 - 4.9 gm/dL [facility] Aspartate Aminotransferase 18 5 - 30 unit/L [facility] Alanine Aminotransferase 9 0 - 25 unit/L [facility] Alkaline Phosphatase 62(L) 80 - 250 unit/L [facility] Bilirubin, Total 0.5 <=1.0 mg/dL [facility] Est Glomerular Filtration Rate See note >=60 mL/min/1. 73 m?? [facility] Comment: The eGFR for patients less [...] of body mass or the acutely ill. http://Sawerly/[facility] CITYnkf eGFR See note >=60 mL/min/1. 73 m?? [facility] Comment: The eGFR for patients less [...] of body mass or the acutely ill. http://Sawerly/[facility]nkf Blood specimen (specimen) 09/27/2018 12:48 PM EDT 09/27/2018 12:52 PM EDT Narrative Resulting Agency Comment Spec In Lab Jorge Moser MD CHEMISTRY ORDERABLE S Performing Organization Address City/[facility]/ZIP Co de Phone Number [facility] [place] [address] * Sedimentation rate (09/27/2018 12:48 PM EDT) Sedimentation Rate Automated 6 0 - 20 mm/hr [facility] Blood specimen (specimen) 09/27/2018 12:48 PM EDT 09/27/2018 12:52 PM EDT Narrative Resulting Agency Comment Spec In Lab Jorge Moser MD HEMATOLOGY ORDERABL ES [facility] [place] [address] documented in this encounter Visit Diagnoses Diagnosis Chronic abdominal pain Abdominal pain, unspecified site documented in this encounter Care Teams Satellite Specialist Relationship Specialty Start Date End Date Florecita Pickard MD PCP - General Pediatrics 11/25/16 10/04/19 documented as of this encounter
--- OUTSIDE RECORDS SUMMARY | 2024-07-29 00:26 | XMS_ITS | Encounter Summary ---
Author Organization [facility] Address [facility] [place] [address] Care Team Providers Care Clip Coater Name Role Phone Judi Garces MD Primary Care Provider [phone]- [phone] Reason for Visit * Reason Onset Date Comments Letter for School/Work 05/01/2020 Encounter Details Date Type Department Care Team (Late st Contact Info) Description 05/01/2020 Telephone Pediatrics at [address] [phone] Meir Benito Letter for School/Work Social History Tobacco Use Types Packs/Day Years Used Date Smoking Tobacco: Never Smokeless Tobacco: Never Comments:no one smokes at [facility] Alcohol Use Standard Drinks/Week Comments No 0 (1 standard drink = 0.6 oz pur e alcohol) Sex and Gender Information Value Date Recorded Sex Assigned at Female 07/24/2023 9:35 AM EST Gender Identity Female 07/24/2023 9:35 AM EST Sexual Orientation Straight 07/24/2023 9: 35 AM EST documented as of this encounter Miscellaneous Notes * Telephone Encounter - Meir Benito - 05/01/2020 9:22 AM EST Patient is requesting to have form completed: Type of paperwork: Letter for school Provider: MD Mirna Sam was supposed to get a letter for the school yesterday at Ely's apt. The letter was to let the school know that Ely was out the first week of April for a cold. It looks like the letter has been written but is not complete. When complete please mail this to Mirna. After completion please: Mail to: Mirna at [address]; [address]; [place] [address] This could also be faxed to the school. But please let Mirna know that it has been made availableto the school. Thanks, documented in this encounter Plan of Treatment Upcoming Encounters Date Type Department Care Team (Late st Contact Info) Description 08/08/2024 9:00 AM EST Appointment [address] [phone] Umu Saucedo RN 08/15/2024 10:45 AM EST TH Visit (TeleHealth) [place] [address] Dara Kelley MD [facility] OBSTETRICS [place] [address] 11/25/2024 Hospital Encounter Birthing [place] [phone] Dara Gonzalez MD [facility] OBSTETRICS [place] [address] 07/12/2025 1:40 PM EST Office Visit Ophthalmology at [place] [phone] Bina Agrawal OD [facility] [place] [address] documented as of this encounter Visit Diagnoses Not on filedocumented in this encounter Care Teams Clip Coater Relationship Specialty Start Date End Date Judi Garces MD [facility] [address] PCP - General Pediatrics 12/01/19 11/29/20 documented as of this encounter
--- OUTSIDE RECORDS SUMMARY | 2024-07-29 00:26 | XMS_ITS | Encounter Summary ---
Author Organization [facility] Address [facility] [place] [address] Care Team Providers Care Community Health Representative Name Role Phone Jorge Moser MD Primary Care Provider [phone] Reason for Visit * Reason Onset Date Comments Prior Authorization 10/31/2019 [place] Encounter Details Date Type Department Care Team (Late st Contact Info) Description 10/31/2019 Telephone Pediatrics at [address] [phone] Ila Clement CMA Prior Authorization ([place]) Social History Tobacco Use Types Packs/Day Years Used Date Smoking Tobacco: Never Smokeless Tobacco: Never Comments:[facility] Alcohol Use Standard Drinks/Week Comments No 0 (1 standard drink = 0.6 oz pur e alcohol) Sex and Gender Information Value Date Recorded Sex Assigned at Female 07/24/2023 9:35 AM EST Gender Identity Female 07/24/2023 9:35 AM EST Sexual Orientation Straight 07/24/2023 9: 35 AM EST documented as of this encounter Miscellaneous Notes * Telephone Encounter - lIa Clement CMA - 10/31/2019 10:45 AM EDT Insurance sent additional information request form. Insurance wants to know if patient has tried and failed any other acne products. I researched the chart and did not see any other acne medication. I did let insurance know when I submitted PA that they were also taking benzaclin. Will route message to PCP to see if patient has tried any other medications. * Telephone Encounter - Ila Clement CMA - 10/31/2019 9:19 AM EDT Medication Prior Authorization for Primary [place] [address] Request received via: CMM Patient: Ely Mahmood Patient : 2005 Insurance Company: [place] Medicaid Sent via: [employer] [place]que: [id number] Physician: Jorge Moser MD Medication Requested: Salicylic Acid 2 % Lotion Frequency/Sig: Apply thin layer daily to acne on face. 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) Prior medications trialed in this patient: Medication: benzaclin Approx Dates: 2014-present Outcome/Adverse Reactions: inadequate response documented in this encounter Plan of Treatment Upcoming Encounters Date Type Department Care Team (Late st Contact Info) Description 08/08/2024 9:00 AM EST Appointment [address] [phone] Umu Saucedo, RN 08/15/2024 10:45 AM EST TH Visit (TeleHealth) [place]etrics [place] [address] Dara Kelley MD [facility] [address] [place] [address] 11/25/2024 Hospital [place] [address] Dara Gonzalez MD [facility] [place] [address] 07/12/2025 1:40 PM EST Office [place] [phone] Bina Agrawal, JONELLE [facility] [place] [address] documented as of this encounter Visit Diagnoses Not on filedocumented in this encounter Care Teams Community Health Representative Relationship Specialty Start Date End Date Jorge Moser MD [facility] [place] [address] PCP - General Pediatrics 10/05/19 11/30/19 documented as of this encounter
--- OUTSIDE RECORDS SUMMARY | 2024-07-29 00:26 | XMS_ITS | Encounter Summary ---
Author Organization [facility] Address [facility] [place] [address] Care Team Providers Care Sweatband Shaper Name Role Phone Judi Garces MD Primary Care Provider [phone]- [phone] Reason for Visit * Reason Onset Date Comments Letter/Form 07/13/2020 Encounter Details Date Type Department Care Team (Late st Contact Info) Description 07/13/2020 Telephone Pediatrics at [address] [phone] Gregorio Andrew Letter/Form Social History Tobacco Use Types Packs/Day Years Used Date Smoking Tobacco: Never Smokeless Tobacco: Never Comments:no one smokes at [facility] Alcohol Use Standard Drinks/Week Comments No 0 (1 standard drink = 0.6 oz pur e alcohol) Sex and Gender Information Value Date Recorded Sex Assigned at Female 07/24/2023 9:35 AM EST Gender Identity Female 07/24/2023 9:35 AM EST Sexual Orientation Straight 07/24/2023 9: 35 AM EST documented as of this encounter Miscellaneous Notes * Telephone Encounter - Shelly Guzman LPN - 07/13/2020 3:08 PM EST After confirming last name and I spoke with mom I advised that I had sent results to school andto her home as requested * Telephone Encounter - Gregorio Andrew - 07/13/2020 2:21 PM EST Name of Person Calling: Mirna PAM Call back number: [phone] Provider Name: Judi Garces MD Context of Letter: needs a letter for the school of her negative covid test on 07/13/2020 Date needed by: TORITO After Completion Please: Mail letter to: Mirna Mahmood [address]; [address]; [facility] [address] ?? Fax letter to: [phone] Attn: School Nurse [facility] documented in this encounter Plan of Treatment Upcoming Encounters Date Type Department Care Team (Late st Contact Info) Description 08/08/2024 9:00 AM EST Appointment [address] [phone] Umu Saucedo, RN 08/15/2024 10:45 AM EST TH Visit (TeleHealth) Obstetrics and Gynecology at [address] Dara Kelley MD [facility] OBSTETRICS [place] [address] 11/25/2024 Hospital Encounter Birthing [place] [phone] Dara Gonzalez MD [facility] OBSTETRICS [place] [address] 07/12/2025 1:40 PM EST Office Visit Ophthalmology at [place] [phone] Bina Agrawal OD [facility] [place] [address] documented as of this encounter Visit Diagnoses Not on filedocumented in this encounter Care Teams Sweatband Shaper Relationship Specialty Start Date End Date Judi Garces MD [facility] [place] [address] PCP - General Pediatrics 12/01/19 11/29/20 documented as of this encounter
--- OUTSIDE RECORDS SUMMARY | 2024-07-29 00:26 | XMS_ITS | Encounter Summary ---
Author Organization [facility] [place] [address] Care Team Providers Care Guidance Director Name Role Phone Florecita Pickard MD Primary Care Provider Unav ailable Encounter Details Date Type Department Care Team (Late st Contact Info) Description 12/09/2018 Telephone [place] [phone] Farhan Cantu, RN Social History Tobacco Use Types Packs/Day [...] encounter Miscellaneous Notes * Telephone Encounter - Dana De Leon - 12/10/2018 9:37 AM EDT Patient scheduled * Addendum Note - Farhan Cantu, RN - 12/09/2018 12:02 PM EDTAddended by: FARHAN CANTU on: 12/09/2018 12:02 PM Modules accepted: Orders * Telephone Encounter - Farhan Cantu RN - 12/09/2018 11:43 AM EDT Technician Plant And [employer] for this patient called in today stating patients back has been bothering her for 2-3 weeks. No injuries or sports related activities they can recall that would aggravate the middle of her lower back. Spoke to patient and she explains that her back pain is constant, it just hurts, the worst pain is 7/10 and sometimes it doesn't hurt as bad. She is unable to describe the pain to me. It hurts the worst when she has been laying down for a long and then has to sit up, but little pain when ambulatory. Grandmother also states she has intermittent h/a's. Please call patient with an appointment with TERESA Dawson. F/u xrays already ordered. Thank you Young documented in this encounter Plan of Treatment Upcoming Encounters Date Type Department Care Team (Late st Contact Info) Description 08/08/2024 9:00 AM EST Appointment [address] [phone] Umu Saucedo RN 08/15/2024 10:45 AM EST TH Visit (TeleHealth) Obstetrics [place] [phone] Dara Kelley MD [facility] [place] [address] 11/25/2024 [place] [phone] Dara Gonzalez MD [facility] [place] [address] 07/12/2025 1:40 PM EST Office [place] [address] Bina Agrawal, [facility] [place] [address] documented as of this encounter Results * XR Scoliosis or [...] the number below. ? Electronically signed by: JENY Love [facility] ([phone]), at 12/20/2018 4:58 PM Narrative 12/20/2018 4:58 PM EDT EXAMINATION: XR [...] contact the number below. 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
--- OUTSIDE RECORDS SUMMARY | 2024-07-29 00:26 | XMS_ITS | Encounter Summary ---
Author Organization [facility] Address [facility] [place] [address] Care Team Providers Care Shipping Clerk/Admin Name Role Phone Florecita Pickard MD Primary Care Provider Unav ailable Reason for Visit * Reason Comments Follow-up here with Martina tyler Encounter Details Date Type Department Care Team (Late st Contact Info) Description 10/05/2018 4:00 PM EDT Office Visit Pediatrics at [address] [phone] Florecita Pickard MD Depression, unspecified depression type Social History Tobacco Use Types Packs/Day Years Used Date Smoking Tobacco: Never Smokeless Tobacco: Never Comments:no one smokes at [facility] Alcohol Use Standard Drinks/Week Comments [...] Sign Reading Time Taken Comments Blood Pressure 110/78 10/05/2018 4:09 PM EDT Pulse 84 10/05/2018 4:09 PM EDT Temperature - - Respiratory Rate - - Oxygen Saturation - - Inhaled Oxygen Concentration - - Weight 49.3 kg (108 lb 9.6 oz) 10/05/2018 4:09 P M EDT Height 149.2 cm (4' 10.75) 10/05/2018 4:09 PM E DT Body Mass Index 22.12 10/05/2018 4:09 PM EDT Body Mass Index Percentile 74.75% 10/05/2018 4:0 9 PM EDT Growth Chart: [facility] (Girls, 2- 20 Years) documented in this encounter Progress Notes * Florecita Pickard MD - 10/05/2018 4:00 PM EDT Assessment: Ely Mahmood is a 13 y.o. with history of chronic abdominal pain and complex social stressors who is presenting for follow up of multiple issues detailed below. Overall Ely appears to be coping well with her stressors and is in much higher spirits. She has had improvement in her abdominal pain, most likely functional abdominal pain, for the first time today. Plan: Contraception: Appointment made for Nexplanon, discussed pros/cons today. Ely wishes to stop her Depo injections and will explore [email or web address] for more information on the implant. Headache: more water! No red flag symptoms at this visit. Will continue to monitor. Stomach ache: This is the first time that Ely has noticed an improvement in her functional abdominal pain which has been chronic and precedes her Depo injections. Celiac testing was negative. Inflammatory markers for IBD were negative. She has normal stooling patterns. Her grandmother has a history of irritable bowel however Ely does not have symptoms of IBS. At our visit today we discussed drinking more water, healthy food choices, Tums as needed, go to school and lie down if needed. The goal is to not stay home from school unless she is vomiting/diarrhea or having severe pain as she has missed significant school the last quarter (15 days). Naps/sleeping: earlier bed time, melatonin nightly, try not to nap after school! Depression: Ely is adamant about not taking medication at this time, but this is an ongoing conversation. She continues to see her counselor. It appears that her mood is 'up in particular compared to previous visits. No current safety concerns. Next visit in one month for joint visit with myself and Dr. Llanos for LARC insertion. To-Do List To-Do List Future Appointments Provider Department Dept Phone 10/25/2018 2:00 PM [facility] [place] Arrive at: [facility] [phone] 10/29/2018 11:00 AM Florecita Pickard MD [facility] [place] Arrive at: [facility] [phone] 02/09/2019 2:40 PM Bina Agrawal, JONELLE [facility] [place] [phone] Chief Complaint: Headache, abdominal pain History of Present Illness: Ely has been having headaches every other day or so, worse this past weekends while at her mom's. They are on her forehead or over her temples. The pain is sharp. Sometimes it is worse with the sun or a bright light. They are relieved by laying down. There is no night/day difference. Not waking her at night. She has had nausea without emesis but not with the headache. No changes in vision or hearing. No weakness or tingling of arms or legs. The nausea is related to her abdominal pain. She missed a week of school with her pain. Ely has a hard time describing the pain. She says that the pain is not as bad as it used to be. It happens when she wakes up and comes and goes in waves and will be there when she goes to bed. She cannot point to the location. It is relieved by laying down and relaxing. She has been sleeping during the day according to Gram (Ely says sometimes she just lays down and doesn't actually fall asleep). She hasbeen sleeping at night, does wake up at night. She is not taking melatonin. Usually she goes to bedat 10 and wakes up at 6. Ely cannot describe her mood at all. She says I don't know. She is not having any trouble concentrating at school or on activities. She still enjoys her hobbies like reading and writing. She is interested in photography. This quarter she missed 15 days of school. Ely is asking about not getting her Depo shot because she thinks her headaches might be related tothat. Jessica doesn't think she drinks enough water. They have mint and sleepy time tea at home to try. Testing came back negative for Celiac disease with unremarkable CBC excluding anemia as cause of her fatigue. She is stools daily. Stools are brown, snakes. No blood or mucous. Review of Systems: As above PMH: Patient Active Problem List Diagnosis [...] hearing of right ear H90.72 Vital Signs: There were no vitals taken for this visit. PHYSICAL EXAM: General: alert, cooperative w/ exam, in NAD Skin: warm, dry, no rashes HEENT: NC/AT, PERRL, OP clear and without erythema, no cervical lymphadenopathy Resp: CTAB, no wheezing, no cough CV: RRR, no M/R/G Abd: soft, non-tender, non-distended, normoactive bowel sounds Ext: all intact, no visible malformations, capillary refill<2seconds Neuro: grossly intact, moves all extremities equally Florecita Pickard MD * Wendy Ewing MD - 10/05/2018 4:00 PM EDT The case was discussed at [...] Info) Description 08/08/2024 9:00 AM EST Appointment [facility] [address] [place] [address] Umu Saucedo, RN 08/15/2024 10:45 AM EST TH Visit (TeleHealth) Obstetrics and Gynecology at [place] [phone] Dara Kelley MD [facility] OBSTETRICS [place] [address] 11/25/2024 [place] [phone] Dara Gonzalez MD [facility] OBSTETRICS [place] [address] 07/12/2025 1:40 PM EST Office Visit Ophthalmology at [place] [phone] Bina Agrawal OD [facility] [place] [address] documented as of this encounter Visit Diagnoses Diagnosis Depression, unspecified depression type documented in this encounter Care Teams Shipping Clerk/Admin Relationship Specialty Start Date End Date Florecita Pickard MD PCP - General Pediatrics 11/25/16 10/04/19 documented as of this encounter
--- OUTSIDE RECORDS SUMMARY | 2024-07-29 00:26 | XMS_ITS | Encounter Summary ---
Author Organization [facility] Address [facility] [place] [address] Care Team Providers Care Info Print Press Operator Name Role Phone Florecita Pickard MD Primary Care Provider Unav ailable Reason for Referral * Consultation (Urgent) - Specialty Diagnoses / Procedures Referred By Radha arroyo Referred To Contact Pediatric Neurology / Child Neurology and Development Diagnoses New daily persistent headache Florecita Pickard MD [facility] [place] [address] [facility] [address] [place] [address] Referral ID Status Reason Start Date Expiration Date V isits Requested Visits Authorized [id number] Assume Subset of Care 10/29/2018 10/29/2019 1 1 Reason for Visit * Reason Onset Date Comments Follow-up Here with Cheri carr; continues to have YORK daily, tylenol at 10am, wants to discuss nexipon implant Contraception 10/29/2018 Encounter Details Date Type Department Care Team (Latest Contact Info) Description 10/29/2018 11:00 AM EDT Procedure visit Pediatrics at [address] [phone] Florecita Pickard MD Insertion of implantable subdermal contraceptive; New daily persistent headache Social History Tobacco Use Types Packs/Day Years [...] Sign Reading Time Taken Comments Blood Pressure 120/68 10/29/2018 11:12 AM EDT Pulse - - Temperature 36.7 ??C (98 ??F) 10/29/2018 11:12 AM EDT Respiratory Rate - - Oxygen Saturation - - Inhaled Oxygen Concentration - - Weight 49.5 kg (109 lb 3.2 oz) 10/29/2018 11:12 AM EDT Height - - Body Mass Index - - documented in this encounter Patient Instructions * Patient Instructions* Florecita Pickard MD - 10/29/2018 11:00 AM EDT Nexplanon (progestin implant) Take-home sheet Congratulations on getting your progesterone contraceptive implant! You now have one of the most effective forms of control. ??? The implant starts working in 7 days to prevent . ??? You should use a back-up method for the first 7 days after implant placement. ??? The implant can remain under your skin for 3 years. ??? Removal date: ____10/29/2021 (3 years from today) Things to know: ??? Common side effects include: Irregular bleeding. Your periods may change. You may have more bleeding, less bleeding, or no bleeding, and periods may last longer than usual. ??? Bruising and swelling at site are common in the first 24 hours. Keep the dressing on for 24 hours. After 24 hours, you can remove the dressing and take a shower or bath. ??? You can check the implant by pressing your fingertips over the skin where the implant was inserted. You should feel a small román. If you do not feel your implant, call your health care provider. You may return to school or work after your visit. The implant does NOT protect against sexually transmitted infections (STIs). You should use latex condoms and/or dental dams to prevent STIs. Most women should get tested for STIs every year, or sooner if symptomatic. Warning Signs: Within First Week ??? Redness, warmth, or drainage from insertion site ? ? Fever (>101 degrees) At Any Time: ??? Feeling (breast pain, nausea) ??? Positive home test However, the studies done on the progestin implant had NO failures - it prevented 100% ofthe time! If you develop any of the above warning signs you should be seen by a healthcare provider. You can call us at [phone] at any time if you have concerns. documented in this encounter Progress Notes * Florecita Pickard MD - 10/29/2018 11:00 AM EDT Having headaches every day for the last 2 weeks. Wakes up with the headache in the morning and the headache continues on the bus and when at school. The headache is frontal. When she wakes up the pain makes her want to put her head down. The headaches have been happening every day or every other day. She has not been missing school, they had a meeting with school about going to school unless she is vomiting or having high fever. Sometimes the pain will be sharp on the side of her head. Pain is partially relieved by Tylenol, it will stop the headache for a few hours, sometimes will just decrease the pain. Pain is exacerbated by noise and sometimes by light when going from dark to light. No known family history of migraines but grandmother has had history of severe headaches requiring that she lie down in the dark with no noise, says she grew out of them. We have previously discussed Ely' depression and anxiety which her counselor also think Ely is suffering from (counselor - [employer]). Ely thinks she would like to start a medication to helpher with this. Ely' grandfather is recovering from his surgery and he will likely be moving back to his house as he and his grandmother are but he has been living with them while he recovers. Plan: -Referral to pedi neurology for evaluation of headaches, query migraines -Headache diary prior to pedi neurology appointment -Follow up in ~6 weeks to evaluate mood and anxiety and consideration of starting SSRI, this time will be once school is over and will have allowed Ely to get used to her Nexplanon Discussed with patient/parent Consent given to insert Nexplanon contraceptive implant into inner upper left arm after placement of local anesthesia for indication of prevention. Alternative contraceptive choices discussed. test: negative LMP: None, on Depo having spotting Procedure: Site marked on inner, upper left arm. Site cleaned. 4 cc of 1% buffered lidocaine infiltrated along insertion tunnel. Sterile Nexplanon applicator utilized for insertion. Nexplanon inserted. Presence verified by palpation. Dressing applied. Patient tolerated procedure well. EBL <1 cc. Discussed the following: ??? protection for 3 years; back up form of control for 7 days post insertion. ??? Nexplanon does not protect against STIs. ??? Risks of insertion include bleeding, scarring, infection, migration of device, difficulty of removal. ??? Common side effects include irregular spotting/bleeding, or amenorrhea. ??? AVS given Procedure performed by Dr. Branham and observed by myself Florecita Pickard MD 10/29/2018 * Kris Branham MD - 10/29/2018 11:00 AM EDT I have seen the patient and reviewed the resident's above history and I agree with the details as written. The assessment and plan were formulated in discussion with me and I agree with them as documented. I performed the entire procedure and was present for consent with grandma. After care instructions provided. Patient tolerated well. documented in this encounter Miscellaneous Notes * Addendum Note - Kris Branham MD - 10/29/2018 11:00 AM EDTAddended by: KRIS BRANHAM on: 10/29/2018 02:07 PM Modules accepted: Level of Service documented in this encounter Plan of Treatment Upcoming Encounters Date Type Department Care Team (Late st Contact Info) Description 08/08/2024 9:00 AM EST Appointment [address] [phone] Umu Saucedo, RN 08/15/2024 10:45 AM EST TH Visit (TeleHealth) Obstetrics [place] [phone] [facility] OBST[place]ICS [place] [address] 11/25/2024 Hospital Encounter Birthing [place] [phone] [facility] OBSTETRICS [place] [address] 07/12/2025 1:40 PM EST Office Visit Ophthalmology at [place] [phone] [facility] [place] [address] Scheduled Referrals Name Type Priority Associated Diagnoses Orde r Schedule Referral to Pediatric Neurology Outpatient Referral Routine New daily persistent headache Ordered: 10/29/2018 documented as of this encounter Procedures Procedure Name Priority Date/Time Associated Diagnosis Comments GC/CHLAMYDIA Routine 10/29/2018 12:42 PM EDT Insertion of implantable subdermal contraceptive GC/CHLAM Routine 10/29/2018 12:42 PM EDT Insertion of implantable subdermal contraceptive POCT URINE Routine 10/29/2018 11:43 AM EDT Insertion of implantable subdermal contraceptive documented in this encounter Results * GC/Chlam (10/29/2018 12:42 PM EDT) GC Gene Amp Negative Negative [facility] Comment: The only FDA approved specimen types for this assay are cervical, vaginal, urethral and urine. Non-FDA approved sources are eye, throat and rectal and have been internally validated. GC Source Urine [facility] Chlamydia Gene Amp Negative Negative [facility] Comment: The only FDA approved specimen types for this assay are cervical, vaginal, urethral and urine. Non-FDA approved sources are eye, throat and rectal and have been internally validated. Chlm Source Urine [facility] Urine specimen (specimen) 10/29/2018 12:42 PM EDT 10/29/2018 1:26 PM EDT Narrative Resulting Agency Comment Spec In Lab Florecita Pickard MD MICROBIOLOGY - GENE [facility] ORDERABLES [facility] [place] [address] * POCT urine (10/29/2018 11:43 AM EDT) Pathologist [facility] POC Urine HCG Negative Negative - Negative POC Control Internal Controls Acceptable 10/29/2018 11:4 3 AM EDT Kris Branham MD POINT OF CARE VIRGIL T ORDERABLES documented in this encounter Visit Diagnoses Diagnosis Insertion of implantable subdermal contraceptive New daily persistent headache documented in this encounter Administered Medications Inactive Administered Medications - up to 3 most recent administrations Medication Order MAR Action Action Date Dose Rate Site etonogestrel (NEXPLANON) 68 mg subdermal implant 68 mg (1.37 mg/kg/dose), Subdermal, ONCE, 1 dose, On Thu10/29/18 at 1145, Routine Inserted 10/29/2018 12:22 PM EDT 68 mg Left Arm documented in this encounter Care Teams Info Print Press Operator Relationship Specialty Start Date End Date Florecita Pickard MD PCP - General Pediatrics 11/25/16 10/04/19 documented as of this encounter
--- OUTSIDE RECORDS SUMMARY | 2024-07-29 00:26 | XMS_ITS | Encounter Summary ---
Author Organization [facility] [place] [address] Care Team Providers Care Pad Machine Operator Name Role Phone Jorge Moser MD Primary Care Provider [phone] Reason for Visit * Reason Onset Date Comments Medication Problem 10/07/2019 Encounter Details Date Type Department Care Team (Late st Contact Info) Description 10/07/2019 Refill Pediatrics at [address] [phone] Bernard [place] Tropical acne Social History Tobacco Use Types Packs/Day Years [...] encounter Miscellaneous Notes * Telephone Encounter - Bernard [place] - 10/07/2019 1:55 PM EDT Caller and relationship to patient (if other than patient): Mirna Grandparent guardian Best time to reach caller: anytime Message or Reason for Call: Mirna states, clindamycin-benzoyl peroxide (BENZACLIN) 1-5 % Gel did not work well in the past, and was not the prescription refill she wanted. This one is a cream, the other one was a lotion that came in a pump bottle. Mirna does not remember the name of the other me dication, that worked better. Appt Needed and Reason: acne Provider: Melly documented in this encounter Plan of Treatment Upcoming Encounters Date Type Department Care Team (Late st Contact Info) Description 08/08/2024 9:00 AM EST Appointment [address] [phone] Umu Saucedo RN 08/15/2024 10:45 AM EST TH Visit (TeleHealth) Obstetrics and Gynecology at [place] [phone] Dara Kelley MD [facility] OBSTETRICS [place] [address] 11/25/2024 Hospital Encounter Birthing [place] [phone] Dara Gonzalez MD [facility] OBSTETRICS [place] [address] 07/12/2025 1:40 PM EST Office Visit Ophthalmology at [place] [phone] Bina Agrawal, JONELLE [facility] [place] [address] documented as of this encounter Visit Diagnoses Diagnosis Tropical acne Other acne documented in this encounter Care Teams Pad Machine Operator Relationship Specialty Start Date End Date Jorge Moser MD [facility] [place] [address] PCP - General Pediatrics 10/05/19 11/30/19 documented as of this encounter
--- OUTSIDE RECORDS SUMMARY | 2024-07-29 00:26 | XMS_ITS | Encounter Summary ---
Author Organization [facility] [place] [address] Care Team Providers Care Bag Machine Operator Name Role Phone uJdi Garces MD Primary Care Provider [phone] Reason for Visit * Reason Onset Date Comments Results 07/13/2020 Encounter Details Date Type Department Care Team (Late st Contact Info) Description 07/13/2020 [place] [phone] Lo Dinh, BOOK SEWING MACHINE OPERATOR [address] [place] [id number] Results Social History Tobacco Use Types Packs/Day Years Used Date Smoking Tobacco: Never Smokeless Tobacco: Never Comments:no one smokes at [facility] Alcohol Use Standard Drinks/Week Comments No 0 (1 standard drink = 0.6 oz pur e alcohol) Sex and Gender Information Value Date Recorded Sex Assigned at Female 07/24/2023 9:35 AM EST Gender Identity Female 07/24/2023 9:35 AM EST Sexual Orientation Straight 07/24/2023 9: 35 AM EST documented as of this encounter Miscellaneous Notes * Telephone Encounter - Lo Dinh, RN - 07/13/2020 2:00 PM EST Telephone call to pt to inform pt of NEGATIVE Covid-19 test results. Pt verbalizes understanding and will contact healthcare provider if any concerns or requires further care. documented in this encounter Plan of Treatment Upcoming Encounters Date Type Department Care Team (Late st Contact Info) Description 08/08/2024 9:00 AM EST Appointment [address] [phone] Umu Saucedo RN 08/15/2024 10:45 AM EST TH Visit (TeleHealth) Obstetrics and Gynecology at [place] [phone] Dara Kelley MD [facility] OBST[place] [address] 11/25/2024 Hospital Encounter Birthing [place] [phone] Dara Gonzalez MD [facility] OBST[place] [address] 07/12/2025 1:40 PM EST Office Visit Ophthalmology at [place] [phone] Bina Agrawal OD [facility] [place] [address] documented as of this encounter Visit Diagnoses Not on filedocumented in this encounter Care Teams Bag Machine Operator Relationship Specialty Start Date End Date Judi Garces MD [facility] [place] [address] PCP - General Pediatrics 12/01/19 11/29/20 documented as of this encounter
--- OUTSIDE RECORDS SUMMARY | 2024-07-29 00:26 | XMS_ITS | Encounter Summary ---
Author Organization [facility] Address [facility] [place] [address] Care Team Providers Care Systematic Theology Professor Name Role Phone Alfreda Molina MD Primary Care Provider Vicky vailable Reason for Visit * Reason Comments Other pt here to have nexp lanon out, here with grandmother Mirna Encounter Details Date Type Department Care Team (Latest Contact Info) Description 04/10/2021 2:00 PM EDT Procedure visit Pediatrics at [address] [phone] Princess Marroquin MD [facility] [place] [address] Fatigue, unspecified type; Encounter for Nexplanon removal Social History Tobacco Use Types Packs/Day Years Used Date Smoking Tobacco: Never Smokeless Tobacco: Never Comments:no one smokes at [facility] Alcohol Use Standard Drinks/Week Comments No [...] Reading Time Taken Comments Blood Pressure 128/78 04/10/2021 1:42 PM EDT Pulse - - Temperature - - Respiratory Rate - - Oxygen Saturation - - Inhaled Oxygen Concentration - - Weight 56.2 kg (123 lb 14.4 oz) 04/10/2021 1:42 PM EDT Height - - Body Mass Index - - documented in this encounter Patient Instructions * Patient Instructions* Princess Marroquin MD - 04/10/2021 2:00 PM EDT You have had your nexplanon removed. You may have bruising or swelling on your arm. Remember, The control is no longer active. Without an alternate form of control, You can get in the next several weeks. If you have a new form of control, Start it immediately. Use condoms! Please keep your incision clean and dry for the next 24 hours. Keep the steri-strips in place until they fall off in the next 3-5 days. Call the clinic immediately for any signs of infection. Redness, swelling, or discharge from the site. Any fever over 101. documented in this encounter Progress Notes * Princess Marroquin MD - 04/10/2021 2:00 PM EDT Procedure note. Indication for removal: (bleeding, pain, other): bleeding Nexplanon site identified on left upper arm. 1 cc 1% lidocaine with epinephrine administered at proximal site of implant Cleaned and prepped. Small 2 mm incision made. Nexplanon implant identified and removed with forceps. Pt tolerated well Yes. Steri strip and dressing applied. Instructions given to keep clean and dry for 24 hours. Plan: Contraception choice: OCP, already prescribed Reviewed safer sex, Plan B, Condom use. Also reviewed fatigue - Stays up late Sleeps in on weekends On phone a lot No much exercise Recommended screening labs, ordered to be done today and will f/u with PCP once results are back. documented in this encounter Plan of Treatment Upcoming Encounters Date Type Department Care Team (Late st Contact Info) Description 08/08/2024 9:00 AM EST Appointment [address] [place] [address] [address] Umu Saucedo RN 08/15/2024 10:45 AM EST TH Visit (TeleHealth) [place]stetrics [place] [phone] Dara Kelley MD [facility] OBSTETRICS [place] [address] 11/25/2024 Hospital [place] [phone] Dara Gonzalez MD [facility] OBSTETRICS [place] [address] 07/12/2025 1:40 PM EST Office [place] [phone] Bina Agrawal OD [facility] [place] [address] documented as of this encounter Procedures Procedure Name Priority Date/Time Associated Diagnosis Comments HC THYROID STIMULATING HORMONE, SERUM Routine 04/10/2021 2:58 PM EDT Fatigue, unspecified type HEMOGRAM Routine 04/10/2021 2:58 PM EDT Fatigue, unspecified type DIFFERENTIAL, AUTOMATED Routine 04/10/2021 2:58 PM EDT Fatigue, unspecified type HC IRON BINDING CAPACITY Routine 04/10/2021 2:58 PM EDT Fatigue, unspecified type HC VITAMIN D TOTAL-25 HYDROXY Routine 04/10/2021 2:58 PM EDT Fatigue, unspecified type HC CBC,PLT & AUTO DIFF Routine 2:58 PM EDT Fatigue, unspecified type HC HEMOGLOBIN A1C Routine 04/10/2021 2:5 8 PM EDT Fatigue, unspecified type HC FERRITIN, SERUM Routine 04/10/2021 2: 58 PM EDT Fatigue, unspecified type HC VENIPUNCTURE Routine 04/10/2021 2:58 PM EDT Fatigue, unspecified type COMPREHENSIVE METABOLIC PANEL Routine 04/10/2021 2:58 PM EDT Fatigue, unspecified type documented in this encounter Results * (ABNORMAL) Differential, Automated (04/10/2021 2:58 PM EDT) Neutrophil % 57.7 % [facility] Neutrophil Absolute 5.79 1.50 - 8.00 x10(3)/[facility] Lymph % 27.2 % [facility] Lymphocytes Abs 2.7 1.2 - 5.2 x10(3)/[facility] Monocyte % 13.0 % [facility] Monocyte Abs 1.3(H) 0.2 - 1.0 x10(3)/ L [facility] Eos % 1.1 % [facility] Eosinophils Abs 0.1 0.0 - 0.4 x10(3)/[facility] Basophil % 0.7 % [facility] Baso Absolute 0.1 0.0 - 0.1 x10(3)/ L [facility] Immature Gran % 0.30 % [facility] Comment: Immature granulocytes(IG's)percentage and absolute count will include metamyelocytes, myelocytes, and promyelocytes. Blood smears from CBCs yielding IG's will be scanned manually for concordance. If this scan disagrees with the automated IG or if promyelocytes are noted, a manual differential will be performed. Immature Gran Absolute 0.03 0.00 - 0.04 x10(3)/ L [facility] Blood 04/10/2021 2:58 PM EDT 04/10/2021 3:05 PM EDT Narrative Resulting Agency Comment Spec In Lab Princess Marroquin MD HEMATOLOGY ORDERABLE S [facility] [place] [address] * (ABNORMAL) Hemogram (04/10/2021 2:58 PM EDT) White Blood Cell 10.0 4.5 - 13.0 x10(3)/mc L [facility] Red Blood Cell 5.17(H) 4.10 - 5.10 x10(6)/mc L [facility] Hemoglobin 15.2 12.0 - 16.0 g/dL [facility] Hematocrit 44.5 36.0 - 46.0 % [facility] Mean Cell Volume 86.1 76.0 - 98.0 fL [facility] Mean Cell Hemoglobin 29.4 25.0 - 35.0 pg [facility] Mean Cell Hemoglobin Concentration 34.2 32.0 - 36.5 g/dL [facility] Platelet 407(H) 145 - 370 x10(3)/mc L [facility] RDW Standard Deviation 36.4(L) 37.0 - 46.0 fL [facility] RDW coefficient of variation 11.5 0.0 - 14.5 % [facility] Mean Platelet Volume 9.3 7.6 - 12.9 fL [facility] NRBC% auto 0.0 % [facility] NRBC Absolute 0.000 0.000 - 0.000 x10(3)/ L [facility] Blood 04/10/2021 2:58 PM EDT 04/10/2021 3:05 PM EDT Narrative Resulting Agency Comment Spec In Lab Prinecss Marroquin MD HEMATOLOGY ORDERABLE S [facility] [place] [address] * Lipid Panel (Reflex Direct LDL) (04/10/2021 2:58 PM EDT) Cholesterol, Total 223 mg/dL [facility] Comment: Lower Risk: <200 mg/dL Average Risk: 200-239 mg/dL Higher Risk: >ng=361 mg/dL Triglyceride 286 mg/dL [facility] Comment: Average Risk/Lower Risk: <150 mg/dL Borderline High Risk: 150-199 mg/dL High Risk: 200-499 mg/dL Very High Risk: >en=446 mg/dL HDL Cholesterol 42 mg/dL [facility] Comment: Males: ?? Higher Risk: <40 mg/dL Females: ?? Higher Risk: <50 mg/dL LDL Cholesterol 124 mg/dL [facility] Comment: Lowest Risk: <100 mg/dL Lower Risk: 100-129 mg/dL Borderline High Risk: 130-159 mg/dL High Risk: 160-189 mg/dL Very High Risk: >gs=361 mg/dL Cholesterol/HDL Ratio 5.3 ratio [facility] Lipid Interpretation See Note [facility] Comment: Lipid management should be guided by a patient? s ASCVD risk, goals and preferences. ACC/AHA Guidelines recommend high intensity statin if clinical ASCVD or LDL greater than or equal to 190 mg/dL. http://[employer].com/YJM-UTU-Mpjxnrgyr Adults aged 40-75 with LDL 70-189 mg/dL should have their 10 year ASCVD risk estimated with the ACC/AHA ASCVD risk box packer http://tools.acc.org/YKQBN-Fgqy-Ephqsesdj/ Statin should be discussed if risk greater [...] critical component of ASCVD risk reduction. Blood 04/10/2021 2:58 PM EDT 04/10/2021 3:05 PM EDT Narrative Resulting Agency Comment Spec In Lab Princess Marroquin MD CHEMISTRY ORDERABLES Performing Organization Address [facility]/ZIP Co de Phone Number [facility] [place] [address] * Vitamin D, 25-Hydroxy (04/10/2021 2:58 PM EDT) Vitamin D Total 25 OH 23 21 - 100 ng/mL [facility] Vit D Interp Insufficient [facility] Blood 04/10/2021 2:58 PM EDT 04/10/2021 3:05 PM EDT Narrative Resulting Agency Comment Spec In Lab Princess Marroquin MD CHEMISTRY ORDERABLES Performing Organization Address [facility] Co de Phone Number [facility] [place] [address] * TSH Greenlee (04/10/2021 2:58 PM EDT) Thyroid Stimulating Hormone 2.32 0.27 - 4.20 mcIU/mL [facility] Comment: Reference Interval (mcIU/mL): Females: ??First Trimester: 0.23-3.88 ??Second Trimester: 0.22-3.90 ??Third Trimester: 0.44-4.66 Blood 04/10/2021 2:58 PM EDT 04/10/2021 3:05 PM EDT Narrative Resulting Agency Comment Spec In Lab Princess Marroquin MD CHEMISTRY ORDERABLES Performing Organization Address City/[facility]/ZIP Co de Phone Number [facility] [place] [address] * Comprehensive metabolic panel (non-fasting) (04/10/2021 2:58 PM EDT) Glucose 90 65 - 199 mg/dL [facility] Comment:Diabetes: >=200 mg/d L plus symptoms Blood Urea Nitrogen 12 10 - 20 mg/dL [facility] Creatinine 0.83 0.50 - 0.89 mg/dL [facility] Sodium 136 135 - 145 mmol/L [facility] Potassium 3.9 3.5 - 5.0 mmol/L [facility] Comment: Please note: ??Patients with WBC >100,000 may have falsely elevated Potassium levels. ??For accurate Potassium quantification in these patients send serum separator tube (gold top) for subsequent determinations. ??Contact the Clinical Chemistry Laboratory if there are any questions. Chloride 102 98 - 107 mmol/L [facility] Carbon Dioxide 25 22 - 31 mmol/L [facility] Anion Gap 9 5 - 15 mmol/L [facility] Calcium 9.7 8.5 - 10.5 mg/dL [facility] Protein, Total 7.7 6.4 - 8.3 g/dL [facility] Albumin 4.7 3.2 - 5.2 g/dL [facility] Aspartate Aminotransferase 22 5 - 30 unit/L [facility] Alanine Aminotransferase 23 0 - 25 unit/L [facility] Alkaline Phosphatase 65 45 - 87 unit/L [facility] Bilirubin, Total 0.3 <=1.0 mg/dL [facility] Est Glomerular Filtration Rate See note >=60 mL/min/1. 73 m?? [facility] Comment: The eGFR for patients less than 18 years of age should be calculated using the Carlson formula. GFR = (0.413 x Height in cm)/serum creatinine. Blood 04/10/2021 2:58 PM EDT 04/10/2021 3:05 PM EDT Narrative Resulting Agency Comment Spec In Lab Princess Marroquin MD CHEMISTRY ORDERABLES [facility] [place] [address] * Hemoglobin A1c (04/10/2021 2:58 PM EDT) Hemoglobin A1c 5.2 4.3 - 5.6 % [facility] Comment: Reference Range: 4.3 - [...] Mellitus, Diabetes Care 2013; 36: Suppl. 1, S67-78 Estimated Average Glucose See note mg/dL [facility] Comment: Estimated Average Glucose not appropriate for patients under 18 years of age. eAG equivalents for HbA1c percentages: HbA1c(%) ?eAG(mg/dL) [...] into estimated average glucose values. ??Diabetes Care 2008:31(8):6171-9855. Blood 04/10/2021 2:58 PM EDT 04/10/2021 3:05 PM EDT Narrative Resulting Agency Comment Spec In Lab Princess Marroquin MD CHEMISTRY ORDERABLES Performing Organization Address City/[facility]/ZIP Co de Phone Number [facility] [place] [address] * Iron and TIBC (04/10/2021 2:58 PM EDT) Iron 133 20 - 160 mcg/dL [facility] TIBC 273 194 - 372 mcg/dL [facility] Iron Saturation 49 20 - 50 % [facility] Blood 04/10/2021 2:58 PM EDT 04/10/2021 3:05 PM EDT Narrative Resulting Agency Comment Spec In Lab Princess Marroquin MD CHEMISTRY ORDERABLES Performing Organization Address [facility]/ZIP Co de Phone Number [facility] [place] [address] * Ferritin (04/10/2021 2:58 PM EDT) Ferritin 72 36 - 92 ng/mL [facility] Comment: Pediatric reference ranges not verified at [facility], interpret with caution. Reference ranges for females greater than 50 years of age approach values for men, i.e., 30-400 ng/mL. Blood 04/10/2021 2:58 PM EDT 04/10/2021 3:05 PM EDT Narrative Resulting Agency Comment Spec In Lab Princess Marroquin MD CHEMISTRY ORDERABLES Performing Organization Address City/[facility]/ZIP Co de Phone Number [facility] [place] [address] documented in this encounter Visit Diagnoses Diagnosis Fatigue, unspecified type Encounter for Nexplanon removal Surveillance of previously prescribed implantable subdermal contraceptive documented in this encounter Care Teams Systematic Theology Professor Relationship Specialty Start Date End Date Alfreda Molina MD PCP - General Pediatrics 11/30/20 12/04/22 documented as of this encounter
--- OUTSIDE RECORDS SUMMARY | 2024-07-29 00:26 | XMS_ITS | Encounter Summary ---
Author Organization [facility] Address [place] [address] Care Team Providers Care Motorized Squad Lieutenant Name Role Phone Florecita Pickard MD Primary Care Provider Unav ailable Reason for Visit * Reason Onset Date Comments Other 10/11/2018 Encounter Details Date Type Department Care Team (Late st Contact Info) Description 10/11/2018 Telephone Pediatrics at [address] [phone] Betsy Perez Other Social History Tobacco Use Types Packs/Day Years [...] encounter Miscellaneous Notes * Telephone Encounter - Glenda Mayen RN - 10/13/2018 11:15 AM EDT Tried calling Grandma again, no answer. Left voicemail asking for a call back. * Telephone Encounter - Glenda Mayen, RN - 10/11/2018 2:09 PM EDT Tried calling Grandmother back, no answer. Left voicemail asking for a call back. Looks like pt already has an appointment scheduled to get the nexplanon. * Telephone Encounter - Betsy Fuentes - 10/11/2018 11:42 AM EDT Message: Patients grandmother is calling stating she's unsure if she was supposed to discuss the control appointments with a nurse or not, please call to discuss. Ask caller their first and last name and relationship to the patient: perla Bradley Best time to call back: any Ok to leave a message: yes Ok to send my- message: no Offered Appointment: no MA/Nurse contacted via: Message: yes Call: no Pager: no documented in this encounter Plan of Treatment Upcoming Encounters Date Type Department Care Team (Late st Contact Info) Description 08/08/2024 9:00 AM EST Appointment [address] [phone] Umu Saucedo RN 08/15/2024 10:45 AM EST TH Visit (TeleHealth) Obstetrics [place] [phone] Dara Kelley MD [facility] OBSTETRICS AND [place] [address] 11/25/2024 Hospital [place] [phone] Dara Gonzalez MD [facility] OBSTETRICS AND [place] [address] 07/12/2025 1:40 PM EST Office Visit [place] [address] Bina Agrawal, JONELLE [facility] DR [place] [address] documented as of this encounter Visit Diagnoses Not on filedocumented in this encounter Care Teams Motorized Squad Lieutenant Relationship Specialty Start Date End Date Florecita Pickard MD PCP - General Pediatrics 11/25/16 10/04/19 documented as of this encounter
--- OUTSIDE RECORDS SUMMARY | 2024-07-29 00:26 | XMS_ITS | Encounter Summary ---
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 Judi Garces MD [facility] [place] [address] [facility] [address] [place] [phone] Referral ID Status Reason Start Date Expiration Date V isits Requested Visits Authorized [id number] Closed Consult, Test & Treat 04/30/2020 04/30/2021 1 1 Encounter Details Date Type Department Care Team (Late st Contact Info) Description 05/25/2020 2:30 PM EST Office Visit [place] [address] Eunice Fountain APRN [facility] [place] [address] 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 Social History Tobacco Use Types Packs/Day Years Used Date Smoking Tobacco: Never Smokeless Tobacco: Never Comments:no one smokes at [facility] Alcohol Use Standard Drinks/Week Comments No 0 (1 standard drink = 0.6 oz pur e alcohol) Sex and Gender Information Value Date Recorded Sex Assigned at Female 07/24/2023 9:35 AM EST Gender Identity Female 07/24/2023 9:35 AM EST Sexual Orientation Straight 07/24/2023 9: 35 AM EST documented as of this encounter Last Filed Vital Signs Vital Sign Reading Time Taken Comments Blood Pressure 123/70 05/25/2020 1:43 PM EST Pulse 71 05/25/2020 1:43 PM EST Temperature - - Respiratory Rate - - Oxygen Saturation - - Inhaled Oxygen Concentration - - Weight 53.9 kg (118 lb 14.4 oz) 05/25/2020 1:43 PM EST Height 150.6 cm (4' 11.29) 05/25/2020 1:[address] Body Mass Index 23.78 05/25/2020 1:43 PM EST Body Mass Index Percentile 79.57% 05/25/2020 1:4 3 PM EST Growth Chart: [facility] (Girls, 2- 20 Years) documented in this encounter Progress Notes * Eunice Fountain, RESTORATIVE CARE TECHNICIAN - 05/25/2020 2:30 PM EST HPI: Ely is a 15 year old female who presents to clinic today in follow-up of her congenital scoliosis.She presents to clinic today with her grandmother. She has been followed by Dr. Garay and Dr. Hill in the past. She has had no growth since her last visit. She does not think that shape of her spine has changed. She does have pain in her upper to lower back. This is both sides. The pain is when sheis seated for an extended period of time or walking for a period of time. She is not doing any PT or exercises. She does not take pain medications for her spine. She has no pain in her legs. She is currently in a hybrid school model. Review of Systems: No pain today. Physical Exam: Ely is a healthy appearing, normally proportioned 15 y.o. year old female in no apparent [...] spine. She has tenderness of the paraspinals bilaterally. Bilateral lower extremities are well-developed. Negative straight leg raise. There is supple range of motion through hips, knees, and ankles. Popliteal angles are 40 degrees. Motor function is 5/5 for hip flexors, quadriceps, hamstrings, tibialis anterior, and gastroc soleus. Sensation is intact to lighttouch throughout. Deep tendon reflexes are 2+ and symmetric.There is no clonus. X-rays: X-rays today show a congenital scoliosis with no significant change in curve size. Risser 5. Assessment and Plan: Ely is a 15 year old female with congenital scoliosis. Discussed the clinical and radiographic findings with them today. There has not been a change in regards to the scoliosis. Her pain appears to be muscular in nature. She is shown multiple exercises by HATTIE Magaña today. Discussed the need to dothe exercises daily for at least 6-8 weeks. We will have her return to clinic PRN. They are in agreement with this plan and have our contact information if they have any questions or concerns. documented in this encounter Plan of Treatment Upcoming Encounters Date Type Department Care Team (Late st Contact Info) Description 08/08/2024 9:00 AM EST Appointment [facility] [address] [phone] Umu Saucedo RN 08/15/2024 10:45 AM EST Visit (TeleHealth) Obstetrics [place] [address] Dara Kelley MD [facility] OBSTETRICS [place] [address] 11/25/2024 Hospital [place] [phone] Dara Gonzalez MD [facility] OBSTETRICS [place] [address] 07/12/2025 1:40 PM EST Office Visit [place] [address] Bina Agrawal OD [facility] [place] [address] Scheduled Referrals Name Type Priority Associated Diagnoses Orde r Schedule Referral to Orthopaedics Outpatient Referral Routine 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
--- OUTSIDE RECORDS SUMMARY | 2024-07-29 00:26 | XMS_ITS | Encounter Summary ---
Author Organization [facility] Address [facility] [place] [address] Care Team Providers Care Card Brusher Name Role Phone Florecita Pickard MD Primary Care Provider Unav ailable Reason for Visit * Reason Comments Follow-up Encounter Details Date Type Department Care Team (Latest Contact Info) Description 12/21/2018 1:30 PM EDT Office Visit Pediatrics at [address] [address] Florecita Pickard MD Chronic nonintractable headache, unspecified headache type; Acne vulgaris; Anxiety; Depression, unspecified depression type Social History Tobacco Use Types Packs/Day Years Used Date Smoking Tobacco: Never Smokeless Tobacco: Never Comments:no one smokes at [facility] Alcohol Use Standard Drinks/Week Comments [...] Sign Reading Time Taken Comments Blood Pressure 110/58 12/21/2018 1:32 PM EDT Pulse 68 12/21/2018 1:32 PM EDT Temperature - - Respiratory Rate - - Oxygen Saturation - - Inhaled Oxygen Concentration - - Weight 48.6 kg (107 lb 3.2 oz) 12/21/2018 1:32 P M EDT Height - - Body Mass Index 21.65 12/20/2018 4:10 PM EDT Body Mass Index Percentile 69.77% 12/21/2018 1:3 2 PM EDT Growth Chart: [facility] (Girls, 2- 20 Years) documented in this encounter Patient Instructions * Patient Instructions* Florecita Pickard MD - 12/21/2018 1:30 PM EDT Acne can be treated with many different products. It is important to find a routine that works for you. Here are the names of products that you can buy over the counter at the pharmacy. Face wash with salicylic acid: this product dries out the acne, which helps to heal them. It can also dry out your skin so using a lotion at the same time can be helpful. We have prescribed a gel with clindamycin (antibiotic) benzoyl peroxide (anti- acne) can help with acne and inflammation, but can dry out your skin. You should use this on areas with acne, once a day.If it is drying out your skin, switch to every other day. Follow this routine: 1. Wash face with warm water and/or gentle soap or cleanser 2. Apply the clindamycin-benzoyl peroxide gel to areas with acne 3. Apply a face lotion. Cerave or Cetaphil are two brands that be bought at the pharmacy for ~$10 and are recommended by dermatologists. This lotion will help stop drying out your skin. Next appointments: To-Do List To-Do List Future Appointments Provider Department Dept Phone 01/11/2019 9:00 AM Erlin Astorga MD Pediatric Neurology at [facility] Arrive at: [place] [phone] 02/09/2019 2:40 PM Bina Agrawal OD Ophthalmology at [facility] [phone] 02/21/2019 2:30 PM Eunice Teague APRN Orthopaedics at [facility] Arrive at: [place] 3A [phone] documented in this encounter Progress Notes * Florecita Pickard MD - 12/21/2018 1:30 PM EDT Assessment: Ely Mahmood is a 13 y.o. with history of depression, anxiety, and many social stressors, who is presenting for follow up of headaches and Nexplanon which was inserted 10/29. #Headache Her headaches are continuing to occur, temporal in location, occurring multiple times a week. They are not interfering in her daily life. Family has Pedi Neurology appointment 01/11 after requesting referral previously. Discussed the importance of keeping a symptom diary prior to this appointment. # Control Ely has had spotting after the insertion of her Nexplanon. At our visit today we discussed that over the first 3 months this is expected. The spotting is light and Ely will continue to keep track of cramps and bleeding on her phone alex. #Abdominal Pain Now resolved #Depression & Anxiety Discussed the importance of continuing to see her counselor over the summer. Ely does not yet wantto try adjunctive medical therapy for her mood symptoms yet. This is an ongoing discussion. Ely and her grandmother both feel that her mood has improved this summer. Will have release signed for communication with counselor Sho at [facility]. #Acne Advised routine of washing face, applying clindamycin 1% - benzoyl peroxide 5% gel topically daily,and applying non-comedogenic face lotion. Chief Complaint: Chief Complaint Patient presents with ??? Follow-up History of Present Illness: control: Nexplanon (inserted 10/29): having spotting. Last month had 15 days of spotting. Thismonth has had 5-6 days of spotting. They do not occur all at once. The days with spotting require one small pad that does not need to be changed. She has intermittent cramps but very different from the previous abdominal pain. Abdominal pain: old pain is gone now. Headaches: still have them but not as bad. Ely has a hard time describing the characteristics ofthe headache. Last headache was today. They have been occurring over the temporal areas, more on the right then the left. She had the headache when she woke up today just before noon. They do not wake her from sleep. Relieved partially by lying down. We previously discussed drinking more water which Jessica has been trying to encourage but Ely has not been working on it. She likes Dasani flavoured water. Acne: has been washing face with Dove bar in the morning, but doesn't like to use it because she feels it makes her skin dry. Does not use a lotion. Previously had discussed washing hair more frequently, using facewash and lotion with active ingredients. (Not done). Social: Ely' sister Terra is now living back with their mother after a court date. She and Jessica feel that her anxiety is much improved since this change happened. Ely is now plugged in with a 'Beaufort' - a big sister who also does writing, just like her. They will be meeting soon. Ely' father is supposed to get out of fci on probation, but this has been delayed for uncertain reasons. Ely has been happy about seeing her boyfriend more frequently this summer. They have given each other promise rings. Mental Health: Sho from [facility]. Ely is not sure she wants to continue seeing her during the summer, because she will also be busy with PT. She feels her mood is in the middle. Her depression and anxiety bother her multiple days a week. Denies SI/HI. She is sleeping a lot, spending a lot of time on her phone. She does not want to start medication at this time, she wants to continue tosee how things go over the summer but will think about it. PMH: Patient Active Problem List Diagnosis Code [...] pain without sciatica M54.5 Vital Signs: BP 110/58 Pulse 68 Wt 48.6 kg (107 lb 3.2 oz) LMP 12/21/2018 (Exact Date) BMI 21.65 kg/m?? Well appearing on examination Palpated subcutaneous nodule on right forearm; no tenderness with wrist flexion, extension, pronation or supination. Most consistent with ganglionic cyst. Florecita Pickard MD * Wendy Ewing MD - 12/21/2018 1:30 PM EDT The case was discussed at the time of the visit or immediately after the visit. The assessment and plan were formulated in discussion with me and I agree with them as documented. I have reviewed the history, physical exam, assessment and plan with the resident. documented in this encounter Miscellaneous Notes * Addendum Note - Florecita Pickard MD - 12/21/2018 1:30 PM EDTAddended by: FLORECITA PICKARD on: 12/21/2018 02:57 PM Modules accepted: Level of Service documented in this encounter Plan of Treatment Upcoming Encounters Date Type Department Care Team (Late st Contact Info) Description 08/08/2024 9:00 AM EST Appointment [address] [address] Umu Saucedo RN 08/15/2024 10:45 AM EST TH Visit (TeleHealth) Obstetrics [place] [address] Dara Kelley MD [facility] DR OBSTETRICS [place] [address] 11/25/2024 Hospital [place] [address] Dara Gonzalez MD [facility] OBSTETR[place] [address] 07/12/2025 1:40 PM EST Office Visit Ophthalmology at [facility] [place] [address] Bina Agrawal OD [facility] [place] [address] documented as of this encounter Visit Diagnoses Diagnosis Chronic nonintractable headache, unspecified headache type Acne vulgaris Other acne Anxiety Anxiety state, unspecified Depression, unspecified depression type documented in this encounter Care Teams Card Brusher Relationship Specialty Start Date End Date Florecita Pickard MD PCP - General Pediatrics 11/25/16 10/04/19 documented as of this encounter
--- OUTSIDE RECORDS SUMMARY | 2024-07-29 00:26 | XMS_ITS | Encounter Summary ---
Author Organization [facility] [place] [address] Care Team Providers Care Raftsman Name Role Phone Florecita Pickard MD Primary Care Provider Unav ailable Encounter Details Date Type Department Care Team (Late Contact Info) Description 04/13/2019 [place] [phone] Florecita Pickard MD Social History Tobacco Use [...] encounter Miscellaneous Notes * Telephone Encounter - Florecita Pickard MD - 04/13/2019 2:01 PM EDT Called Ely' grandmother Mirna today to advise that there is no anemia on the CBC obtained yesterday. documented in this encounter Plan of Treatment Upcoming Encounters Date Type Department Care Team (Late st Contact Info) Description 08/08/2024 9:00 AM EST Appointment [address] [place] [phone] Umu Saucedo, RN 08/15/2024 10:45 AM EST TH Visit (TeleHealth) Obstetrics and Gynecology at [place] [phone] Dara Kelley MD [facility] DR OBSTETRICS [place] [address] 11/25/2024 Hospital Encounter Birthing [place] [phone] Dara Gonzalez MD [facility] OBSTETRICS [place] [address] 07/12/2025 1:40 PM EST Office [place] [address] Bina Agrawal OD [facility] [place] [address] documented as of this encounter Visit Diagnoses Not on filedocumented in this encounter Care Teams Raftsman Relationship Specialty Start Date End Date Florecita Pickard MD PCP - General Pediatrics 11/25/16 10/04/19 documented as of this encounter
--- OUTSIDE RECORDS SUMMARY | 2024-07-29 00:26 | XMS_ITS | Encounter Summary ---
Author [facility] [place] [address] Care Team Providers Care Supply Chain Program Manager Name Role Phone Judi Garces MD Primary Care Provider +1- [phone] Encounter Details Date Type Department Care Team (Late st Contact Info) Description 07/12/2020 [place] [phone] Tracy Holman, RN Social History Tobacco Use Types Packs/Day [...] Description 08/08/2024 9:00 AM EST Appointment [facility] [address] [phone] Umu Saucedo RN 08/15/2024 10:45 AM EST TH Visit (TeleHealth) Obstetrics and Gynecology at [place] [phone] Dara Kelley MD [facility] OBSTETRICS [place] [address] 11/25/2024 Hospital Encounter Birthing [place] [phone] Dara Gonzalez MD [facility] OBSTETRICS [place] [address] 07/12/2025 1:40 PM EST Office [place] [address] Bina Agrawal OD [facility] [place] [address] documented as of this encounter Visit Diagnoses Not on filedocumented in this encounter Care Teams Supply Chain Program Manager Relationship Specialty Start Date End Date Judi Garces MD [facility] [place] [address] PCP - General Pediatrics 12/01/19 11/29/20 documented as of this encounter
--- OUTSIDE RECORDS SUMMARY | 2024-07-29 00:26 | XMS_ITS | Encounter Summary ---
Author Organization [facility] Address [facility] [place] [address] Care Team Providers Care Supervisor [employer] Name Role Phone Judi Garces MD Primary Care Provider +1- [phone] Encounter Details Date Type Department Care Team (Late st Contact Info) Description 07/11/2020 2:30 PM EST [place] [phone] COVID-19 ruled out Social History Tobacco Use Types Packs/Day Years [...] Description 08/08/2024 9:00 AM EST Appointment [address] [phone] Umu Saucedo RN 08/15/2024 10:45 AM EST TH Visit (TeleHealth) Obstetrics and Gynecology at [place] [phone] Dara Kelley MD [facility] OBSTETRICS [place] [address] 11/25/2024 [place] [address] Dara Gonzalez MD [facility] OBSTETRICS [place] [address] 07/12/2025 1:40 PM EST Office Visit Ophthalmology at [address] Bina Agrawal OD [facility] [place] [address] documented as of this encounter Procedures Procedure Name Priority Date/Time Associated Diagnosis Comments COVID-19 PCR Routine 07/11/2020 3:27 PM EST COVID-19 ruled out documented in this encounter Results * COVID-19 PCR (07/11/2020 3:27 PM EST) SARS-CoV-[address] [facility] Comment: This result should be interpreted in combination with the clinical observations, patient history and epidemiological information in making a final diagnosis. For testing of asymptomatic individuals, assay performance characteristics and clinical utility have not been evaluated. Testing for SARS-CoV-2 (Severe acute respiratory syndrome coronavirus 2, formerly known as 2019 novel coronavirus or 2019-nCoV) to aid in the diagnosis of COVID-19 is performed using the [employer] RealTime SARS-CoV-2 Assay as authorized by the FDA Emergency Use Authorization (EUA). This EUA assay is intended for In-vitro Diagnostic (IVD) use with respiratory specimens such as nasopharyngeal swabs collected from individuals during the acute phase of infection. This assay is performed based on the instructions for use provided by [employer] and additional guidance provided by CDC and FDA. Testing is performed in the [facility] within the Department of Pathology and Laboratory Medicine at [facility], certified under the Clinical Laboratory Improvement Amendments of 1988 (CLIA), 42 U.S.C. 263a, to perform high complexity tests. Assay performance has been verified according to clinical laboratory regulatory requirements for use with specimens collected from individuals suspected of COVID-19. Test results are provided above. A result of ? Not Detected? indicates that the viral RNA target is not present above the limit of detection, but does not preclude SARS-CoV-2 infection. False negative results may occur if a specimen is improperly collected, transported or handled; if amplification inhibitors are present; or if inadequate numbers of viral particles are present in the specimen. When a diagnostic test is negative, the possibility of a false negative result should be considered in the context of a patient? s recent exposures and the presence of clinical signs and symptoms consistent with COVID-19. A result of ? Detected? indicates that RNA from SARS-CoV-2 was detected and the patient is infected. As required or requested by public health authorities, positive specimens may be sent for additional testing. Positive and negative predictive values for this test are highly dependent on disease prevalence. A result of ? Invalid? indicates that neither the viral RNA targets nor the internal control target was detected. An invalid result suggests the presence of inhibitors. Recollection and re-testing is recommended in the case of an invalid result. CDC COVID-19 criteria for testing on human specimens and clinical management guidance information are available at the CDC Coronavirus Disease 2019 (COVID-19) webpage under ? Information for Healthcare Professionals? (https://www.cdc.gov/coronavirus/2019-ncov/hcp/index.html) Additional information about this and other EUA tests can be found in provider and patient fact sheets at the following FDA website: https://www.fda.gov/medical-devices/gwoubgpyshg-hwdfbuk-2103-zuzsn-74-euoxfqqwo- use-a srmhkfglgctgf-hjcuzjk-ihudaqx/hlrvh-hnphudleece-ldgt SARS-CoV-2 RNA Source MOBILE SALES TECHNICIAN Swab [facility] Nasopharyngeal swab (specimen) 07/11/2020 3:27 PM EST 07/11/2020 3:27 PM EST Comment:Symptoms->Fever / Re spiratory Symptoms Narrative Resulting Agency Comment Spec In Lab Marie Tatum DO MOLECULAR ORDERABL ES [facility] [place] [address] documented in this encounter Visit Diagnoses Diagnosis COVID-19 ruled out documented in this encounter Care Teams Supervisor [employer] Relationship Specialty Start Date End Date Judi Garces MD [facility] [place] [address] PCP - General Pediatrics 12/01/19 11/29/20 documented as of this encounter
--- OUTSIDE RECORDS SUMMARY | 2024-07-29 00:26 | XMS_ITS | Encounter Summary ---
Author Organization [facility] Address [facility] [place] [address] Care Team Providers Care Supervisor [employer] Name Role Phone Judi Garces MD Primary Care Provider +1- [phone] Reason for Visit * Reason Comments Eye Exam Encounter Details Date Type Department Care Team (Late st Contact Info) Description 09/20/2020 1:40 PM EDT Office [place] [address] Bian Agrawal OD [facility] [place] [address] Emmetropia; Dry eyes, bilateral Social History Tobacco Use Types Packs/Day Years Used Date Smoking Tobacco: Never Smokeless Tobacco: Never Comments:no one smokes at [facility] Alcohol Use Standard Drinks/Week Comments No 0 (1 standard drink = 0.6 oz pur e alcohol) Sex and Gender Information Value Date Recorded Sex Assigned at Female 07/24/2023 9:35 AM EST Gender Identity Female 07/24/2023 9:35 AM EST Sexual Orientation Straight 07/24/2023 9: 35 AM EST documented as of this encounter Progress Notes * Bina Agrawal OD - 09/20/2020 1:40 PM EDT Encounter Diagnoses Name Primary? Emmetropia ??? Dry eyes, bilateral Ely Mahmood is a 15 y.o. with the following ophthalmic problems: Assessment [...] Description 08/08/2024 9:00 AM EST Appointment [address] [address] Umu Saucedo RN 08/15/2024 10:45 AM EST TH Visit (TeleHealth) Obstetrics and Gynecology at [place] [phone] Dara Kelley MD [facility] OBSTETRICS [place] [address] 11/25/2024 Hospital [place] [address] Dara Gonzalez MD [facility] OBSTETRICS [place] [address] 07/12/2025 1:40 PM EST Office Visit Ophthalmology at [place] [phone] Bina Agrawal, JONELLE [facility] [place] [address] documented as of this encounter Visit Diagnoses Diagnosis Emmetropia Screening for other eye conditions Dry eyes, bilateral Tear film insufficiency, unspecified documented in this encounter Care Teams Supervisor [employer] Relationship Specialty Start Date End Date Judi Garces MD [facility] [place] [address] PCP - General Pediatrics 12/01/19 11/29/20 documented as of this encounter
--- OUTSIDE RECORDS SUMMARY | 2024-07-29 00:26 | XMS_ITS | Encounter Summary ---
Author Organization [facility] Address [facility] [address] Care Team Providers Care Finishing Trimmer Name Role Phone Alfreda Moilna MD Primary Care Provider Vicky vailable Reason for Visit * Reason Comments Well Child pt here alone today Encounter Details Date Type Department Care Team (Late st Contact Info) Description 12/26/2020 2:00 PM EDT Office Visit Pediatrics at [address] [phone] Alfreda Molina MD Encounter for routine child health examination without abnormal findings Social History Tobacco Use Types Packs/Day Years Used Date Smoking Tobacco: Never Smokeless Tobacco: Never Comments:no one smokes at [facility] Alcohol Use Standard Drinks/Week Comments No 0 (1 standard drink = 0.6 oz pur e alcohol) Sex and Gender Information Value Date Recorded Sex Assigned at Female 07/24/2023 9:35 AM EST Gender Identity Female 07/24/2023 9:35 AM EST Sexual Orientation Straight 07/24/2023 9: 35 AM EST documented as of this encounter Last Filed Vital Signs Vital Sign Reading Time Taken Comments Blood Pressure 130/66 12/26/2020 1:41 PM EDT Pulse - - Temperature - - Respiratory Rate - - Oxygen Saturation - - Inhaled Oxygen Concentration - - Weight 54.3 kg (119 lb 12.8 oz) 12/26/2020 1:41 PM EDT Height 148.3 cm (4' 10.39) 12/26/2020 1:41 PM E DT Body Mass Index 24.71 12/26/2020 1:41 PM EDT Body Mass Index Percentile 82.93% 12/26/2020 1:4 1 PM EDT Growth Chart: [facility] (Girls, 2- 20 Years) documented in this encounter Patient Instructions * Patient Instructions* Kim Benito, CCMA - 12/26/2020 2:00 PM EDT Images from the original [...] dentist at least twice a year. ??? Petros your teeth at least twice a day [...] ??? 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 female. HPI Ely Mahmood is a 16 y.o. here today for: Chief Complaint Patient presents with ??? Well Child pt here alone today Accompanied by: herself Problem list updates: No Additional Concerns/Interval History: Nexplanon: -spotting for last year -everyday or every other day Headaches: -once a week -sometimes very bad -a couple of hours or all day -tylenol or ibuprofen helps -sleeping helps -improved a bit since before Scoliosis: -back pain -twice a week -ortho gave her stretches -back massages help Health Maintenance and Age Appropriate Review of Systems: Health Maintenance: per AAP Bright Future Guidelines: Comments Prompts Menses Spotting no period No LMP recorded. Patient has had an implant. Menarche, LMP, regular cycles Dental Dentist appointment coming up, working on brushing and flossing BID brush, flossing, dentist Home Things are well with both grandparents and bf at home How are things at home? 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 Strengths? Challenges? Future goals? Employment -[employer] [place] [employer] -Boyfriend works at [employer] too as lead cashier -he wants to go to [employer] Activities Swimming, walking outside and during work Playing with dog Activities Exercise Screen Time outside of school (<2 hours per day) Diet fruit and vegetables, varied diet 5210 Body Image concerns? Sleep 5hrs on days she works and is able to sleep in on days she doesn't work She has a hard time falling asleep Uses melatonin Hours per night? Pre-Sports Eval: Consider cardiology referral if concerns about the following table or if the following are present on exam: HTN, heart murmur, abnormal femoral pulses, stigmata of Marfan's Yes No Exertional chest pain [] [x] Exertional dyspnea/SOB [x] [] Sometimes lungs hurt with running, gets short of breath and has inhaler Unexplained syncope (excluding vasovagal) [] [x] Previous head injury or concussion [] [x] Hx of fractures/sprains [] [x] FHx of premature sudden <50yo or other cardiac [] [x] (long QT, Marfan, arrhythmia, HCM) Ely Mahmood completed the DartScreen (comprehensive health screener) today. The full list of questions are on file. The following area(s) were assessed: issues of screener-identified concernand further confidential discussion are noted below: DartScreen 12/26/2020 Health Concerns Headaches, Stomach ache/vomiting, Menstruation or periods, Other concerns Nutrition Score 3 (Nutrition Risk) Sports Cardiac Score 1 (Sports Cardiac Risk) Activities Score 2 (Activity Risk) School Score 0 (No School Risk) Safety Score 2 (Safety Risk) Tobacco Score 1 (Tobacco Risk) Social Life Score 4 (Social Life Risk) Abuse Score 0 (No Abuse) Mental Health Score (PHQ2) 1 (Brief screen negative) Mental Health Score (PHQ9) - Anxiety Score 4 (Anxiety Risk) Anxiety Score (GAD7) 6 (Mild Anxiety) Self Harm Score 0 (No Self harm Risk) Family Score 0 (No Family Risk) Strengths Score 0 (No Strengths Risk) 15 minutes or more was spent on questionnaire completion and review with teen. Vitals: 12/26/20 1341 BP: 130/66 Weight: 54.3 kg (119 lb 12.8 oz) Height: (!) 148.3 cm (4' 10.39) Blood pressure reading is in the Stage 1 hypertension range (BP >= 130/80) based on the 2017 AAPClinical Practice Guideline. 46 %ile based on CDC (Girls, 2-20 Years) [id number] data based on Weight recorded on 12/26/2020. 1 %ile based on CDC (Girls, 2-20 Years) [id number] data based on Stature recorded on 12/26/2020. Body mass index is 24.71 kg/m??. 83 %ile based on CDC (Girls, 2-20 Years) BMI-for-age based on bodymeasurements available as of 12/26/2020. Objective: Physical Exam General: awake, alert, cooperative, interactive HEENT: NC/AT, PERRL, EOMI, OP clear and without erythema, no cervical lymphadenopathy CV: S1S2+, RRR without murmur Resp: CTA B without wheezes Abd: soft, non-tender, non-distended, no masses, normoactive bowel sounds Ext: warm, dry, without rashes , capillary refill<2seconds Neuro: grossly intact, gait normal, moves all extremities equally Assessment and Plan: Healthy adolescent. Daily/every other day menstrual spotting w/ nexplanon in place: -OCP for 28 days to see if it helps with cessation of menstrual spotting Growth Parameters: BMI =83 %ile based on CDC (Girls, 2-20 Years) BMI-for-age based on body measurements available as of 12/26/2020. BMI < 5% [] BMI 5-85% [x] BMI 85%- 95% [] BMI 95-99% [] BMI >99% [] Immunizations: Immunization record reviewed: UTD Patient and family was counseled on benefits, risks and complications for all vaccines and components as listed in the immunization category of the patient record and patient/family was given VIS foreach vaccine component. Recommended screening: GC/CT (urine based testing) for ALL15+ year olds and ALL sexually active adolescents. Sent [x] Not sent [] Orders Placed This Encounter Procedures ??? GC/Chlamydia ([facility]/CGP/APD/[facility]) Urine Follow up: Return in one year for annual exam. * Kim Benito [facility] - 12/26/2020 2:00 PM EDT Confidential Adolescent Note The following adolescent issues reviewed. Substance Use ??? CRAFFT -no alcohol, smoking, marijuana or other drugs Gender & Sexual Identity -sexually active with 1 male partner -1 male partner for 5 years -she thinks he is going to propose in the next week Mental Health ??? PHQ 9 ??? PAVITHRA 7 -feels down -Sees counsellor during the school year -does not feel anxious -feels overall her depression and anxiety are now -has a support dog Other Safety or Health Issues Cramping in June 2018 -March 2018 started the pill -she thinks she had a miscarriage and would like to know forsure -had cramping and a large blood clot -counsellor at school feels supported with friends and boyfriend Ely Mahmood completed the DartScreen (comprehensive health screener) today. The full list of questions are on file. The following area(s) were assessed: issues of screener-identified concern and further confidential discussion are noted below: 15 minutes or more was spent on questionnaire completion and review with the patient. DartScreen 12/26/2020 Health Concerns Headaches, Stomach ache/vomiting, Menstruation or periods, Other concerns Nutrition Score 3 (Nutrition Risk) Sports Cardiac Score 1 (Sports Cardiac Risk) Activities Score 2 (Activity Risk) School Score 0 (No School Risk) Safety Score - Tobacco Score - Social Life Score - Abuse Score - Mental Health Score (PHQ2) - Mental Health Score (PHQ9) - Anxiety Score - Anxiety Score (GAD7) - Self Harm Score - Family Score 0 (No Family Risk) Strengths Score - * Princess Marroquin MD - 12/26/2020 2:00 PM EDT The case was discussed at [...] Description 08/08/2024 9:00 AM EST Appointment [address] [phone] Umu Saucedo RN 08/15/2024 10:45 AM EST TH Visit (TeleHealth) Obstetrics [place] [address] Dara Kelley MD [facility] [place] [address] 11/25/2024 Hospital [place] [address] Dara Gonzalez MD [facility] [place] [address] 07/12/2025 1:40 PM EST Office Visit [place] [address] Bina Agrawal OD [facility] [place] [address] documented as of this encounter Procedures Procedure Name Priority Date/Time Associated Diagnosis Comments HC GC GENE AMP Routine 12/26/2020 2:54 PM EDT Encounter for routine child health examination without abnormal findings documented in this encounter Results * GC/Chlamydia ([facility]/CGP/APD/[place]) Urine (12/26/2020 2:54 PM EDT) GC Gene Amp Negative Negative [facility] Comment: The only FDA approved specimen types for this assay are cervical, vaginal, urethral and urine. Non-FDA approved sources are eye, throat and rectal and have been internally validated. GC Source Urine [facility] Chlamydia Gene Amp Negative Negative [facility] Comment: The only FDA approved specimen types for this assay are cervical, vaginal, urethral and urine. Non-FDA approved sources are eye, throat and rectal and have been internally validated. Chlm Source Urine [facility] Urine 12/26/2020 2:54 PM EDT 12/26/2020 3:52 PM EDT Narrative Resulting Agency Comment Spec In Lab Princess Marroquin MD MICROBIOLOGY - GENER AL ORDERABLES Performing Organization Address City/State/[facility] Co de Phone Number [facility] [place] [address] documented in this encounter Visit Diagnoses Diagnosis Encounter for routine child health examination without abnormal findings Routine or child health check documented in this encounter Care Teams Finishing Trimmer Relationship Specialty Start Date End Date Alfreda Mloina MD PCP - General Pediatrics 11/30/20 12/04/22 documented as of this encounter
--- OUTSIDE RECORDS SUMMARY | 2024-07-29 00:26 | XMS_ITS | Encounter Summary ---
[facility] Organization [facility] Address [facility] [place] [address] Care Team Providers Care Aquaculturist Name Role Phone Judi Garces MD Primary Care Provider [phone] Reason for Visit * Reason Comments Well Child Here with gardian/gr andmoMirna torres Other ED for ear infection ; no specialty visits; c/o possible UTI, bood in urine, painful urination Encounter Details Date Type Department Care Team (Late st Contact Info) Description 12/01/2019 2:30 PM EDT Office Visit Pediatrics at [address] [phone] Judi Garces MD [facility] [place] [address] Encounter for routine child health examination without abnormal findings; Dysuria Social History Tobacco Use Types Packs/Day Years Used Date Smoking Tobacco: Never Smokeless Tobacco: Never Comments:no one smokes at [facility] Alcohol Use Standard Drinks/Week Comments No [...] Sign Reading Time Taken Comments Blood Pressure 108/60 12/01/2019 2:52 PM EDT Pulse 100 12/01/2019 2:52 PM EDT Temperature - - Respiratory Rate - - Oxygen Saturation - - Inhaled Oxygen Concentration - - Weight 51.4 kg (113 lb 4.8 oz) 12/01/2019 2:52 P M EDT Height 150 cm (4' 11.06) 12/01/2019 2:52 PM EDT Body Mass Index 22.84 12/01/2019 2:52 PM EDT Body Mass Index Percentile 75.06% 12/01/2019 2:5 2 PM EDT Growth Chart: [facility] (Girls, 2- 20 Years) documented in this encounter Patient Instructions * Patient Instructions* Mary Marks, CALEB - 12/01/2019 2:30 PM EDT Images from the original note [...] dentist at least twice a year. ??? [place] your teeth at least twice a day [...] ??? 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 female. HPI Ely Mahmood is a 14 y.o. here today for: Chief Complaint Patient presents with ??? Well Child Here with gardian/grandmother, Mirna ??? Other ED for ear infection; no specialty visits; c/o possible UTI, bood in urine, painful urination Accompanied by: Mirna (grandmother) Additional Concerns/Interval History: Had painful urination and increased frequency last week Did had some incontinence as well This has gotten much better, isn't peeing as frequently and no more dysuria Has also had some spotting (is on Nexplanon) No fevers No abdominal pain or vomiting No rashes Health Maintenance and Age Appropriate Review of Systems: Ely Mahmood completed the DartScreen (comprehensive health screener) today. The full list of questions are on file. The following area(s) were assessed: issues of screener-identified concern and further confidential discussion are noted below: 15 minutes or more was spent on questionnaire completion and review with the patient. DartScreen 12/01/2019 Health Concerns Other concerns Nutrition Score 3 (Nutrition Risk) Sports Cardiac Score 1 (Sports Cardiac Risk) Activities Score 1 (Activity Risk) School Score 0 (No School Risk) Safety Score 2 (Safety Risk) Tobacco Score 1 (Tobacco Risk) Social Life Score 3 (Social Life Risk) Abuse Score 0 (No Abuse) Mental Health Score (PHQ2) 0 (Brief screen negative) Mental Health Score (PHQ9) - Anxiety Score 0 (No Anxiety Risk) Anxiety Score (GAD7) - Self Harm Score 0 (No Self harm Risk) Family Score 0 (No Family Risk) Strengths Score 1 (Strengths RIsk) Health Maintenance: per AAP Bright Future Guidelines: Comments Prompts Menses Rare or spotting, irregular Menarche, LMP, regular cycles Dental discussed BID brush, flossing, dentist Home Lives with grandmother, sister (temporarily) and great-aunt How are things at home? Education Finished 9th grade - went ok, last 2 quarters were hard Learning online was hard A,B's! One C third quarter Goal was to make honor roll Wants to go to [employer] for Nursing Wants to take care of NICU or Pedis School? Strengths? Challenges? Future goals? Activities Likes video games, swimming - went swimming the other day! Spends a lot of time on screen (including phone) Planning to go on walks with her sister Activities Exercise Screen Time outside of school (<2 hours per day) Diet Doesn't eat a lot Tend to not get hungry a lot, will snack a lot 5210 Body Image concerns? Drugs No use Friends not using to her knowledge Caffeine, tobacco/vaping, EtOH, other Sleep Sleeps about 10-12 hours a night Hours per night? Sexuality Sexually active One partner Been together for 4 years! Use condoms most of the time, sometimes forget Partner is also 14 Gender Identity, dating preference Sexual Activity STI Risks Suicide/ depression No anxiety or depression PHQ 9 for depression GAD7 for anxiety Safety Doesn't wear a helmet Feels safe with partner and at home helmets, weapons, interpersonal violence, bullying, vehicle safety (seat belt, texting etc). Pre-Sports Eval: Consider cardiology referral if concerns about the following table or if the following are present on exam: HTN, heart murmur, abnormal femoral pulses, stigmata of Marfan's Yes No Exertional chest pain [] [x] Exertional dyspnea/SOB [x] [] has an inhaler Unexplained syncope (excluding vasovagal) [] [x] Previous head injury or concussion [] [x] Hx of fractures/sprains [x] [] Has had shoulder strains FHx of premature sudden <50yo or other cardiac [] [x] (long QT, Marfan, arrhythmia, HCM) Social/Family History Any changes to Social or Family history today? Yes [] No [x] Not Reviewed [] Comment: [place] [id number]. Social History Social History Narrative 04/2017 Father in custodial Grandparents are , grandmother has guardianship for both Ely and her sister. Mother sees them 1-2 weekends per month 01/2018 6 months ago moved from [place] to [place]. 08/2018 [employer] Grandfather undergoing treatment for colon cancer, he is back living with grandmother during this time and this has been important to Ely to be able to spend time with him Adopted new puppy named Peanut ([place]ua) Mother is Tangela Melquiades (does not have custody, no parental rights) Father is Hank Mahmood (incarcerated, no parental rights) Half-sister (mom is Tangela) Chelly Arnett (born 2000) Half-brother (mom is Tangela) José Antonio Moraes (born 1997) Half-sister (father Hank) Martha Mantilla (born 2001) - in a foster home then adopted, lives in [place] Ely has been with her PGM since she was born. Her mother fought for custody but did not gain rights. Ely sees her mother because she wants to. 12/2018 Ely' sister Terra is now back in custody with her biological mother. Ely' father Hank Mahmood is supposedly going to released from detention soon. (Currently incarcerated for domestic assault for ex-girlfriend). He has a history of drug use including cocaine. 03/2019 Met with older sister Martha (18 yo, lives in [place] and was adopted as was in the foster system) which was a positive experience [employer] roll at school. Meeting with mentor through [employer]oring [employer]. Has two miniature ponies - Kacy and Maria Luisa Has new cat - Sophia Vitals: 12/01/19 1452 BP: 108/60 Pulse: 100 Weight: 51.4 kg (113 lb 4.8 oz) Height: (!) 150 cm (4' 11.06) Blood pressure reading is in the normal blood pressure range based on the 2017 AAP Clinical Practice Guideline. 39 %ile based on [facility] (Girls, 2-20 Years) qprusw-sat-azb data based on Weight recorded on 12/01/2019. 3 %ile based on CDC (Girls, 2-20 Years) Dmkhles-edw-eqc data based on Stature recorded on 12/01/2019. Body mass index is 22.84 kg/m??. 75 %ile based on CDC (Girls, 2-20 Years) BMI-for-age based on bodymeasurements available as of 12/01/2019. Objective: Physical Exam Constitutional: Appearance: Normal appearance. She is normal weight. HENT: Head: Normocephalic and atraumatic. Right Ear: Tympanic membrane normal. Left Ear: Tympanic membrane normal. Nose: Nose normal. Mouth/Throat: Mouth: Mucous membranes are moist. Eyes: Conjunctiva/sclera: Conjunctivae normal. Pupils: Pupils are equal, round, and reactive to light. Neck: Musculoskeletal: Normal range of motion. Cardiovascular: Rate and Rhythm: Normal rate. Pulses: Normal pulses. Heart sounds: Normal heart sounds. No murmur. Pulmonary: Effort: Pulmonary effort is normal. Breath sounds: Normal breath sounds. Abdominal: General: Abdomen is flat. Palpations: Abdomen is soft. Musculoskeletal: Normal range of motion. Skin: General: Skin is warm and dry. Capillary Refill: Capillary refill takes less than 2 seconds. Neurological: General: No focal deficit present. Mental Status: She is alert and oriented to person, place, and time. Mental status is at baseline. Gait: Gait normal. Deep Tendon Reflexes: Reflexes normal. Psychiatric: Mood and Affect: Mood normal. Assessment and Plan: Healthy adolescent. Will follow up in 1 year or sooner if needed Urine sent today, symptoms have improved but will call if culture + and needs antibiotics Additional concerns identified: No problem-specific Assessment & Plan notes found for this encounter. Growth Parameters: BMI =75 %ile based on CDC (Girls, 2-20 Years) BMI-for-age based on body measurements available as of 12/01/2019. Underweight (<5%) [] Normal [x] Overweight (>85% <95%) [] Obese (>95) [] Immunizations: Immunization record reviewed: UTD Patient [...] Orders Placed This Encounter Procedures ??? GC/Chlamydia ([facility]CGP/APD) Urine ??? Urine culture ??? Urinalysis with reflex Culture ??? Urinalysis Microscopic Exam ??? POCT urine dipstick Follow up: Return in one year for annual exam. * Precious Moore MD - 12/01/2019 2:30 PM EDT I discussed the history and physical exam for Ely Mahmood, a 14 y.o. 11 m.o. female here for Well Child (Here with gardian/grandmother, Mirna) and Other (ED for ear infection; no specialtyvisits; c/o possible UTI, bood in urine, painful urination) at the time of or immediately after her visit with Judi Caputo MD. UA with leukocytes, but urine culture with mixed and small counts suggestive of contamination rather than infection. TC to family by with symptom resolution. The assessment and plan were formulated in discussion with me and I agree with them as documented. documented in this encounter Plan of Treatment Upcoming Encounters Date Type Department Care Team (Late st Contact Info) Description 08/08/2024 9:00 AM EST Appointment [facility] [address] [phone] Umu Saucedo RN 08/15/2024 10:45 AM EST TH Visit (TeleHealth) Obstetrics [place] [address] Dara Kelley MD [facility] OBSTETRICS [place] [address] 11/25/2024 Hospital [place] [address] Dara Gonzalez MD [facility] OBSTETRICS [place] [address] 07/12/2025 1:40 PM EST Office [place] [address] Bina Agrawal OD [facility] [place] [address] Scheduled Orders Name Type Priority Associated Diagnoses Orde r Schedule POCT urine dipstick Point of Care Testing Routine Dysuria Ordered: 12/01/2019 documented as of this encounter Procedures Procedure Name Priority Date/Time Associated Diagnosis Comments URINALYSIS MICROSCOPIC EXAM STAT 12/01/2019 2:50 PM EDT HC GC GENE AMP Routine 12/01/2019 2:50 PM EDT Encounter for routine child health examination without abnormal findings URINALYSIS WITH REFLEX CULTURE STAT 12/01/2019 2:50 PM EDT Dysuria URINE CULTURE STAT 12/01/2019 2:50 PM EDT documented in this encounter Results * (ABNORMAL) Urine culture (12/01/2019 2:50 PM EDT) Urine Culture 10,000-49,000 cfu/ml Escherichia coli 1,000-9,000 cfu/ml Gram Positive organisms (A) [facility] Organism Escherichia coli(A) [facility] Urine specimen obtained by clean catch procedure (specimen) 12/01/2019 2:50 PM EDT 12/01/2019 8:39 PM EDT Narrative Resulting Agency Comment Spec In Lab Organism Antibiotic Method Susceptibility Escherichia coli Amikacin VITEK 2 METHOD Sensitive Escherichia coli Ampicillin + Sulbactam VITEK 2 METHOD Sensitive Escherichia coli Aztreonam VITEK 2 METHOD Sensitive Escherichia coli Cefazolin VITEK 2 METHOD Sensitive Escherichia coli Ceftazidime VITEK 2 METHOD [...] Escherichia coli Trimethoprim/Sulfa VITEK 2 METHOD Sensitive Judi Garces MD MICROBIOLOGY - GEN ERAL ORDERABLES Performing Organization Address City/[facility]/ZIP Co de Phone Number [facility] [place] [address] * (ABNORMAL) Urinalysis Microscopic Exam (12/01/2019 2:50 PM EDT) RBC, Urine 1 0 - 4 /HPF [facility] WBC, Urine 27(H) 0 - 5 /HPF [facility] Bacteria, Urine Rare(A) None /HPF [facility] Squamous Epithelial Cells Raw Data, Urine 1 <=4 /HPF [facility] Urine specimen obtained by clean catch procedure (specimen) 12/01/2019 2:50 PM EDT 12/01/2019 3:19 PM EDT Narrative Resulting Agency Comment Spec In Lab Judi Garces MD URINE ORDERABLES Performing Organization Address [facility]/ZIP Co de Phone Number [facility] [place] [address] * (ABNORMAL) Urinalysis with reflex Culture (12/01/2019 2:50 PM EDT) Glucose, Urine Dipstick Negative Negative mg/dL [facility] Protein, Urine Dipstick Negative Negative mg/dL [facility] Bilirubin, Urine Dipstick Negative Negative mg/dL [facility] Comment: Clinical correlation required for positive Urine Bilirubin results as false positive may occur with some drugs and drug related products. If a false positive is suspected a serum total bilirubin should be considered if clinically indicated. Urobilinogen, Urine Dipstick Normal Normal mg/dL [facility] pH, Urn (dipstick) 6.0 5.0 - 8.0 [facility] Blood, Urine Dipstick Trace(A) Negative mg/dL [facility] Ketone, Urine Dipstick Negative Negative mg/dL [facility] Nitrite, Urine Dipstick Negative Negative [facility] Leukocytes, Urine Dipstick Moderate(A) Negative [facility] Appearance, Urine Dipstick Clear Clear [facility] Specific [place] Urine Automated 1.007 1.006 - 1.030 [facility] Color, Urine Dipstick Yellow Yellow [facility] Reflex to Culture Yes [facility] Urine specimen obtained by clean catch procedure (specimen) 12/01/2019 2:50 PM EDT 12/01/2019 3:19 PM EDT Narrative Resulting Agency Comment Spec In Lab Precious Moore MD URINE ORDERABLES [facility] [place] [address] * GC/Chlamydia ([facility]/CGP/APD) Urine (12/01/2019 2:50 PM EDT) Pathologist [facility] GC Gene Amp Negative Negative [facility] Comment: The only FDA approved specimen types for this assay are cervical, vaginal, urethral and urine. Non-FDA approved sources are eye, throat and rectal and have been internally validated. GC Source Urine [facility] Chlamydia Gene Amp Negative Negative [facility] Comment: The only FDA approved specimen types for this assay are cervical, vaginal, urethral and urine. Non-FDA approved sources are eye, throat and rectal and have been internally validated. Chlm Source Urine [facility] Urine specimen (specimen) 12/01/2019 2:50 PM EDT 12/02/2019 9:55 PM EDT Narrative Resulting Agency Comment Spec In Lab Precious Moore MD MICROBIOLOGY - GENER AL ORDERABLES [facility] [place] [place] [address] documented in this encounter Visit Diagnoses Diagnosis Encounter for routine child health examination without abnormal findings Routine infant or child health check Dysuria documented in this encounter Care Teams Aquaculturist Relationship Specialty Start Date End Date Judi Garces MD [facility] [place] [address] PCP - General Pediatrics 12/01/19 11/29/20 documented as of this encounter
--- OUTSIDE RECORDS SUMMARY | 2024-07-29 00:26 | XMS_ITS | Encounter Summary ---
Author Organization [facility] Address [facility] [place] [place] [address] Care Team Providers Care Malt Specifications Control Assistant Name Role Phone Alfreda Molina MD Primary Care Provider Vicky vailable Reason for Visit * Reason Comments Other Here with grandfathe r to discuss control options. Encounter Details Date Type Department Care Team (Late st Contact Info) Description 04/03/2021 1:30 PM EDT Office Visit Pediatrics at [address] [phone] Alfreda Molina MD Encounter for female control Social History Tobacco Use Types Packs/Day Years Used Date Smoking Tobacco: Never Smokeless Tobacco: Never Comments:no one smokes at [facility] Alcohol Use Standard Drinks/Week Comments No [...] Sign Reading Time Taken Comments Blood Pressure 128/72 04/03/2021 1:21 PM EDT Pulse - - Temperature - - Respiratory Rate - - Oxygen Saturation - - Inhaled Oxygen Concentration - - Weight 55 kg (121 lb 4.8 oz) 04/03/2021 1:21 PM EDT Height 149.9 cm (4' 11) 04/03/2021 1:21 PM EDT Body Mass Index 24.5 04/03/2021 1:21 PM EDT Body Mass Index Percentile 81.23% 04/03/2021 1:2 1 PM EDT Growth Chart: [facility] (Girls, 2- 20 Years) documented in this encounter Progress Notes * Alfreda Molina MD - 04/03/2021 1:30 PM EDT Assessment: Ely is a 16yo female who presents for discussion about control options. She does not like irregularity of vaginal bleeding on the nexplanon and would like to transition to the OCP. Will plan to remove the nexplanon in clinic in 1 week. Have sent prescription to the pharmacy to restart OCP. Discussed instructions for re-starting OCP. Plan: -re-started OCP -plan to remove nexplanon in 1 week Return to Clinic for: -if any concerns around irregular bleeding or if concerns about worsening depression Chief Complaint: Chief Complaint Patient presents with ??? Other Here with grandfather to discuss control options. History of Present Illness: -has nexplanon in place but has had irregular bleeding so trialed OCP to help stabilize menses -OCP from 27 December until 19 March -bleeding during the sugar pill weeks which was regular while on OCP -vaginal bleeding started once OCP stopped on Mar and lasted until the -bleeding again the - -she does not like the spotting -cramping over the last couple of days has been worst -she has not had any associated symptoms -no headaches -did have intermittent chest pain in February which occurred 3x and lasted for a couple of secondsand located in the central chest -not sure if associated with food or anxiety but thinks it may be due to reflux -didn't mind being on the pill -didn't miss a day on the pill -grandmother currently in the hospital which has been stressful -wants flu shot today Review of Systems: -cold - 27 of March - runny nose, migraines, generalized aches and sore throat -feeling a lot better now -covid neg Const: No fever. Normal appetite; usually skips breakfast but is trying to make a routine with eating breakfast HEENT: No headaches. No nasal discharge. Neck: No neck pain or stiffness Resp: No cough, dyspnea, or wheezing GI: No vomiting. No diarrhea. No abdominal pain : No dysuria. MSK: No joint pain Skin: No rashes. Neuro: No numbness, tingling, or weakness PMH: Patient Active Problem List Diagnosis Code [...] ??? Acne vulgaris L70.0 Vital Signs: BP 128/72 Ht (!) 149.9 cm (4' 11) Wt 55 kg (121 lb 4.8 oz) BMI 24.50 kg/m?? PHYSICAL EXAM: General: awake, alert, cooperative, interactive HEENT: NC/AT, PERRL, EOMI, OP clear and without erythema CV: S1S2+, RRR without murmur Resp: CTA B without wheezes Abd: soft, non-tender, non-distended, no masses, normoactive bowel sounds Ext: warm, dry, without rashes, capillary refill<2seconds Neuro: grossly intact, gait normal, moves all extremities equally * Princess Marroquin MD - 04/03/2021 1:30 PM EDT The case was discussed [...] Info) Description 08/08/2024 9:00 AM EST Appointment [address] [phone] Umu Saucedo RN 08/15/2024 10:45 AM EST TH Visit (TeleHealth) Obstetrics and Gynecology at [place] [phone] Dara Kelley MD [facility] OBSTETRICS AND [place] [address] 11/25/2024 Hospital [place] [phone] Dara Gonzalez MD [facility] OBSTETRICS AND [place] [address] 07/12/2025 1:40 PM EST Office Visit Ophthalmology at [place] [phone] Bina Agrawal OD [facility] [place] [address] documented as of this encounter Visit Diagnoses Diagnosis Encounter for female control Other specified contraceptive management documented in this encounter Care Teams Malt Specifications Control Assistant Relationship Specialty Start Date End Date Alfreda Molina MD PCP - General Pediatrics 11/30/20 12/04/22 documented as of this encounter
--- OUTSIDE RECORDS SUMMARY | 2024-07-29 00:26 | XMS_ITS | Encounter Summary ---
Author Organization [facility] Address [facility] [place] [address] Care Team Providers Care Vice President Of News Name Role Phone Florecita Pickard MD Primary Care Provider Unav ailable Encounter Details Date Type Department Care Team (Late st Contact Info) Description 10/13/2018 Telephone Pediatrics at [address] [phone] Shelly Guzman LPN Social History Tobacco Use Types Packs/Day Years [...] Telephone Encounter - Shelly Guzman LPN - 10/13/2018 12:54 PM EDT After confirming last name and I spoke with Grandmom She would like to cancel the nurse Depo Injection and keep the appointment for nexplanon . documented in this encounter Plan of Treatment Upcoming Encounters Date Type Department Care Team (Late st Contact Info) Description 08/08/2024 9:00 AM EST Appointment [address] [phone] Umu Saucedo, RN 08/15/2024 10:45 AM EST TH Visit (TeleHealth) Obstetrics and Gynecology at [place] [phone] Dara Kelley MD [facility] OBSTETRICS [place] [address] 11/25/2024 Hospital Encounter Birthing [place] [phone] Dara Gonzalez MD [facility] OBSTETRICS [place] [address] 07/12/2025 1:40 PM EST Office Visit Ophthalmology at [place] [phone] Bina Agrawal OD [facility] [place] [address] documented as of this encounter Visit Diagnoses Not on filedocumented in this encounter Care Teams Vice President Of News Relationship Specialty Start Date End Date Florecita Pickard MD PCP - General Pediatrics 11/25/16 10/04/19 documented as of this encounter
--- OUTSIDE RECORDS SUMMARY | 2024-07-29 00:26 | XMS_ITS | Encounter Summary ---
Author Organization [facility] Address [facility] [place] [address] Care Team Providers Care Director Corporate Security Name Role Phone Florecita Pickard MD Primary Care Provider Unav ailable Reason for Visit * Reason Onset Date Comments Medication Refill 09/01/2019 Medication Refill 09/15/2019 Encounter Details Date Type Department Care Team (Late st Contact Info) Description 09/01/2019 Refill Pediatrics at [address] [phone] Glenda Perez Social History Tobacco Use Types Packs/Day Years Used Date Smoking Tobacco: Never Smokeless Tobacco: Never Comments:no one smokes at [facility] Alcohol Use Standard Drinks/Week Comments No 0 (1 standard drink = 0.6 oz pur e alcohol) Sex and Gender Information Value Date Recorded Sex Assigned at Female 07/24/2023 9:35 AM EST Gender Identity Female 07/24/2023 9:35 AM EST Sexual Orientation Straight 07/24/2023 9: 35 AM EST documented as of this encounter Miscellaneous Notes * Telephone Encounter - Renetta Yusuf RN - 09/15/2019 1:03 PM EDT WCC:11/15/19,new prescription ordered. This technical document writer advised Gram the prescription has been sent. * Telephone Encounter - Betsy Fuentes - 09/15/2019 12:28 PM EDT Patient is scheduled for a [facility] in November, Grandmother is looking for this prescription to be called into the pharmacy, please call back to let her know when it's been called in. * Telephone Encounter - Renetta Yusuf, RN - 09/06/2019 10:27 AM EDT Message left at 10:28 on [phone] (H). A prescription can be written after the parent makes an annual exam appointment. * Telephone Encounter - Glenda Perez - 09/01/2019 11:20 AM EDT Please remind every patient that prescription requests can take up to 72 business hours to process PLEASE REMEBER TO CHECK IF ANY REFILLS MAY BE REMAINING AT THE PHARMACY Medication Refill Request: Name of Medication: clindamycin-benzoyl peroxide (BENZACLIN) 1-5 % Gel Dose as Prescribed: 1-5% gel How many days left: 0 Prescriber: Florecita Pickard MD Pharmacy Name & Location: [facility] Caller would like clinic to reach out to the Pharmacy: No Patient declined scheduling an appointment: Ask caller their first and last name and relationship to the patient: Pt's mandi Bradley Best time to call back: any Ok to leave a message: yes Ok to send my- message: no Did you contact your pharmacy: Yes documented in this encounter Plan of Treatment Upcoming Encounters Date Type Department Care Team (Late st Contact Info) Description 08/08/2024 9:00 AM EST Appointment [address] [address] Umu Saucedo, RN 08/15/2024 10:45 AM EST TH Visit (TeleHealth) Obstetrics and Gynecology at [address] Dara Kelley MD [facility] OBSTETRICS [place] [address] 11/25/2024 Hospital Encounter Birthing [place] [phone] Dara Gonzalez MD [facility] OBSTETRICS [place] [address] 07/12/2025 1:40 PM EST Office Visit Ophthalmology at [place] [address] Bina Agrawal OD [facility] [place] [address] documented as of this encounter Visit Diagnoses Not on filedocumented in this encounter Care Teams Director Corporate Security Relationship Specialty Start Date End Date Florecita Pickard MD PCP - General Pediatrics 11/25/16 10/04/19 documented as of this encounter
--- OUTSIDE RECORDS SUMMARY | 2024-07-29 00:26 | XMS_ITS | Encounter Summary ---
Author Organization [facility] Address [facility] [place] [address] Care Team Providers Care Plan Consultant Name Role Phone Florecita Pickard MD Primary Care Provider Unav ailable Reason for Visit * Reason Onset Date Comments Bumped Appointment 02/01/2019 Encounter Details Date Type Department Care Team (Late st Contact Info) Description 02/01/2019 Telephone [place] [phone] Eunice Fountain, TRUCK PACKER [facility] [place] [address] Bumped Appointment Social History Tobacco Use Types Packs/Day Years Used Date Smoking Tobacco: Never Smokeless Tobacco: Never Comments:no one smokes at [facility] Alcohol Use Standard Drinks/Week Comments No 0 (1 standard drink = 0.6 oz pur e alcohol) Sex and Gender Information Value Date Recorded Sex Assigned at Female 07/24/2023 9:35 AM EST Gender Identity Female 07/24/2023 9:35 AM EST Sexual Orientation Straight 07/24/2023 9: 35 AM EST documented as of this encounter Miscellaneous Notes * Telephone Encounter - Rubia Cyr - 02/04/2019 11:40 AM EDT Mirna called back and reports that Ely is feeling better (did not do the PT) and would like to know if an appointment is necessary. Please call her if Eunice would like to still follow up. * Telephone Encounter - Lo Wilhelm - 02/01/2019 12:48 PM EDT Call[employer]. Voice mail. Need to move Ely's appointment from 02/21/2019 to 02/17/2019 if possible. If this day does not work for her, Next available with Eunice is acceptable or any day with Dr Lazaro willwork. documented in this encounter Plan of Treatment Upcoming Encounters Date Type Department Care Team (Late st Contact Info) Description 08/08/2024 9:00 AM EST Appointment [address] [phone] Umu Saucedo, RN 08/15/2024 10:45 AM EST TH Visit (TeleHealth) Obstetrics [place] [address] Dara Kelley MD [facility] OBSTETRICS [place] [address] 11/25/2024 Hospital [place] [address] Dara Gonzalez MD [facility] OBSTETRICS [place] [address] 07/12/2025 1:40 PM EST Office Visit Ophthalmology at [place] [phone] Bina Agrawal OD [facility] [address] documented as of this encounter Visit Diagnoses Not on filedocumented in this encounter Care Teams Plan Consultant Relationship Specialty Start Date End Date Florecita Pickard MD PCP - General Pediatrics 11/25/16 10/04/19 documented as of this encounter
--- OUTSIDE RECORDS SUMMARY | 2024-07-29 00:27 | XMS_ITS | Encounter Summary ---
Author Organization [facility] Address [facility] [place] [address] Care Team Providers Care Skilled Labor Name Role Phone Florecita Pickard MD Primary Care Provider Unav ailable Encounter Details Date Type Department Care Team (Late st Contact Info) Description 05/14/2018 3:00 PM EST Office Visit Audiology at [address] [address] Demetrice Macdonald AUD [facility] [place] [address] Type a-s tympanogram, bilateral; Examination of ears and hearing Social History Tobacco Use Types Packs/Day Years Used Date Smoking Tobacco: Never Smokeless Tobacco: Never Comments:no one smokes at [facility] Alcohol Use Standard Drinks/Week Comments No 0 (1 standard drink = 0.6 oz pur e alcohol) Sex and Gender Information Value Date Recorded Sex Assigned at Female 07/24/2023 9:35 AM EST Gender Identity Female 07/24/2023 9:35 AM EST Sexual Orientation Straight 07/24/2023 9: 35 AM EST documented as of this encounter Progress Notes * Demetrice Macdonald AUD - 05/14/2018 3:00 PM EST AUDIOLOGY SECTION Name: Ely Mahmood DOB: 2005 Date/Time of Visit: 05/14/2018 at 3:05 PM Accompanied by: Grandmother Ely Mahmood was seen for a hearing test in conjunction with follow-up to Chino Matta MD, in Otolaryngology. Please see audiogram (in procedures tab) and Dr. Matta' report for specifics regarding history, impressions, and recommendations. Alize Siegel, [facility] Commercial Counsel [place] [phone] documented in this encounter Plan of Treatment Upcoming Encounters Date Type Department Care Team (Late st Contact Info) Description 08/08/2024 9:00 AM EST Appointment [address] [address] Umu Saucedo RN 08/15/2024 10:45 AM EST TH Visit (TeleHealth) Obstetrics [place] [phone] Dara Kelley MD [facility] OBSTETRICS [place] [address] 11/25/2024 Hospital [place] [phone] Dara Gonzalez MD [facility] OBSTETRICS [place] [address] 07/12/2025 1:40 PM EST Office Visit [place] [phone] Bina Agrawal OD [facility] [place] [address] documented as of this encounter Procedures Procedure Name Priority Date/Time Associated Diagnosis Comments COMPREHENSIVE HEARING TEST Routine 05/14/2018 3:11 PM EST documented in this encounter Results * Comprehensive hearing test (05/14/2018 3:11 PM EST) 05/14/2018 3:11 PM EST Narrative AUDBASE COMP - 05/14/2018 3:11 PM EST Continue to monitor hearing per Dr. Matta recommendation. Procedure Note Unknown - 05/14/2018 Continue to monitor hearing per Dr. Matta recommendation. Unknown AUDIOLOGY SERVICES O RDERABLES [facility]UD[facility] documented in this encounter Visit Diagnoses Diagnosis Type a-s tympanogram, bilateral Examination of ears and hearing Other examination of ears and hearing documented in this encounter Care Teams Skilled Labor Relationship Specialty Start Date End Date Florecita Pickard MD PCP - General Pediatrics 11/25/16 10/04/19 documented as of this encounter
--- OUTSIDE RECORDS SUMMARY | 2024-07-29 00:27 | XMS_ITS | Encounter Summary ---
Author Organization [facility] Address 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 Alcohol Use Standard Drinks/Week Comments No 0 (1 standard drink = 0.6 oz pur e alcohol) Sex and Gender Information Value Date Recorded Sex Assigned at Female 07/24/2023 9:35 AM EST Gender Identity Female 07/24/2023 9:35 AM EST Sexual Orientation Straight 07/24/2023 9: 35 AM EST documented as of this encounter Last Filed Vital Signs Vital Sign Reading Time Taken Comments Blood Pressure - - Pulse - - Temperature - - Respiratory Rate - - Oxygen Saturation - - Inhaled Oxygen Concentration - - Weight 45.2 kg (99 lb 9.6 oz) 07/09/2017 1:02 PM EST fully clothed without clothes Height 148.8 cm (4' 10.58) 07/09/2017 1:02 PM EST without shoes Body Mass Index 20.4 07/09/2017 1:02 PM EST Body Mass Index Percentile 66.63% 07/09 1:02 PM EST Growth Chart: [facility] (Girls, 2- 20 Years) documented in this encounter Progress Notes * Eunice Teague, BUYER PLANNER - 07/09/2017 1:30 PM EST HPI: Ely is a 12 year old female who presents to clinic today in follow-up of her congenital scoliosis.She presents to clinic today with her grandmother and sister who has idiopathic scoliosis. She has been followed by Dr. Garay and Dr. Hill in the past. She has not had significant growth since her last visit. She does not think that shape of her spine has changed. She has no complaints of back pain. No exertional headaches. She is 1 year post-menarchal. She is active in basketball. She does intoeon the right side but this does not bother her. She does not trip. Review of Systems: No pain. Physical Exam: Ely is a healthy appearing, normally proportioned 12 y.o. year old female in no apparent [...] hands down to the level of her mid tibia. Ely is able to extend through their lumbar spine and side to side bend without pain. She is nontender on palpation of her cervical, thoracic, or lumbar spine. Bilateral lower extremities are well-developed. There is supple range of motion through hips, knees, and ankles. Motor function is 5/5 for hip flexors, quadriceps, hamstrings, tibialis anterior, and gastroc soleus. Sensation is intact to light touch throughout.Deep tendon reflexes are 2+ and symmetric.There is no clonus. X-rays: X-rays today show a slight decrease in the lower curve under her hemivertebra. Risser 4/5. Assessment and Plan: Ely is a 12 year old female with congenital scoliosis. Discussed the clinical and radiographic findings with them today. There has not been a significant change in regards to the scoliosis. Discussed the entity and treatment of congenital scoliosis. Given her skeletal maturity and her curves over time this is unlikely to significantly change. 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 We will have her follow-up on an as needed basis. They are in agreement with this plan and have our contact information if they have any questions or concerns. documented in this encounter Plan of Treatment Upcoming Encounters Date Type Department Care Team (Late st Contact Info) Description 08/08/2024 9:00 AM EST Appointment [address] [phone] Umu Saucedo RN 08/15/2024 10:45 AM EST TH Visit (TeleHealth) Obstetrics and Gynecology at [place] [phone] Dara Kelley MD [facility] OBSTETRICS [place] [address] 11/25/2024 Hospital [place] [phone] Dara Gonzalez MD [facility] OBSTETRICS [place] [address] 07/12/2025 1:40 PM EST Office Visit Ophthalmology at [place] [phone] Bina Agrawal OD [facility] [place] [address] documented as of this encounter Visit Diagnoses Diagnosis 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
--- OUTSIDE RECORDS SUMMARY | 2024-07-29 00:27 | XMS_ITS | Encounter Summary ---
Author Organization [facility] Address [facility] [place] [address] Care Team Providers Care Engine Repairer Name Role Phone Florecita Pickard MD Primary Care Provider Unav ailable Reason for Visit * Reason Comments Eye Exam 16 mo ck for CEE Encounter Details Date Type Department Care Team (Late st Contact Info) Description 02/08/2018 2:30 PM EDT Office [place] [address] Bina Agrawal, JONELLE [facility] [place] [address] Dry eyes, bilateral; Emmetropia Social History Tobacco Use Types Packs/Day Years Used Date Smoking Tobacco: Never Smokeless Tobacco: Never Comments:second hand smoke Alcohol Use Standard Drinks/Week Comments No 0 (1 standard drink = 0.6 oz pur e alcohol) Sex and Gender Information Value Date Recorded Sex Assigned at Female 07/24/2023 9:35 AM EST Gender Identity Female 07/24/2023 9:35 AM EST Sexual Orientation Straight 07/24/2023 9: 35 AM EST documented as of this encounter Patient Instructions * Patient Instructions* Bina Agrawal, OD - 02/08/2018 2:30 PM EDT For dry eye, use AM [...] Progress Notes * Bina Agrawal, OD - 02/08/2018 2:30 PM EDT Encounter Diagnoses Name Primary? Dry eyes, bilateral ??? Emmetropia Ely Mahmood is a 13 y.o. with the following ophthalmic problems: Assessment [...] EST Appointment [facility] [address] [address] Umu Saucedo RN 08/15/2024 10:45 AM EST TH Visit (TeleHealth) Obstetrics [place] [address] Dara Kelley MD [facility] [place] [address] 11/25/2024 [place] [phone] Dara Gonzalez MD [facility] [place] [address] 07/12/2025 1:40 PM EST Office [place] [phone] Bina Agrawal OD [facility] [place] [address] documented as of this encounter Visit Diagnoses Diagnosis Dry eyes, bilateral Tear film insufficiency, unspecified Emmetropia Screening for other eye conditions documented in this encounter Care Teams Engine Repairer Relationship Specialty Start Date End Date Florecita Pickard MD PCP - General Pediatrics 11/25/16 10/04/19 documented as of this encounter
--- OUTSIDE RECORDS SUMMARY | 2024-07-29 00:27 | XMS_ITS | Encounter Summary ---
Author Organization [facility] Address [facility] [place] [address] Care Team Providers Care Thread Roller Name Role Phone Alondra Quach MD Primary Care Provider Jhoan hicks Reason for Visit * Reason Onset Date Comments Reminder Appointment 02/27/2016 Encounter Details Date Type Department Care Team (Late st Contact Info) Description 02/27/2016 [place] [phone] Severo Hill MD [facility] [place] [address] Reminder Appointment Social History Tobacco Use Types Packs/Day Years Used Date Smoking Tobacco: Never Smokeless Tobacco: Never Comments:No smokers in home. Alcohol Use Standard Drinks/Week Comments No 0 (1 standard drink = 0.6 oz pur e alcohol) Sex and Gender Information Value Date Recorded Sex Assigned at Female 07/24/2023 9:35 AM EST Gender Identity Female 07/24/2023 9:35 AM EST Sexual Orientation Straight 07/24/2023 9: 35 AM EST documented as of this encounter Miscellaneous Notes * Telephone Encounter - Claudia Song - 02/27/2016 11:05 AM EDT SCHEDULED * Telephone Encounter - Ya Valdesdith Raheel - 02/27/2016 9:51 AM EDT Left message #1 to schedule reminder appointment with Dr Hill for XR SCOLIOSIS. documented in this encounter Plan of Treatment Upcoming Encounters Date Type Department Care Team (Late st Contact Info) Description 08/08/2024 9:00 AM EST Appointment [address] [address] Umu Saucedo, RN 08/15/2024 10:45 AM EST TH Visit (TeleHealth) Obstetrics and Gynecology at [place] [phone] Dara Kelley MD [facility] DR OBSTETRICS [place] [address] 11/25/2024 Hospital Encounter Birthing [place] [phone] Dara Gonzalez MD [facility] DR OBSTETRICS [place] [address] 07/12/2025 1:40 PM EST Office Visit Ophthalmology at [place] [phone] Bina Agrawal OD [facility] [place] [address] documented as of this encounter Visit Diagnoses Not on filedocumented in this encounter Care Teams Thread Roller Relationship Specialty Start Date End Date Alondra Quach MD PCP - General Pediatrics 08/17/15 11/24/16 documented as of this encounter
--- OUTSIDE RECORDS SUMMARY | 2024-07-29 00:27 | XMS_ITS | Encounter Summary ---
Author Organization [facility] Address [facility] [place] [address] Care Team Providers Care Publications Sales Representative Name Role Phone Florecita Pickard MD Primary Care Provider Unav ailable Encounter Details Date Type Department Care Team (Latest Contact Info) Description 07/09/2017 11:45 AM EST - 07/09/2017 11:59 PM EST Hospital Encounter XRay at [address] [place] [address] Eunice Fountain, STREET VENDOR [facility] [place] [address] Hemivertebra Discharge Disposition: Home Social History Tobacco Use [...] Info) Description 08/08/2024 9:00 AM EST Appointment [address] [address] Uum Saucedo, RN 08/15/2024 10:45 AM EST TH Visit (TeleHealth) Obstetrics [place] [phone] Dara Kelley MD [facility] [place] [address] 11/25/2024 [place] [phone] Dara Gonzalez MD [facility] [place] [address] 07/12/2025 1:40 PM EST Office [place] [phone] Bina Agrawal OD [facility] [place] [address] documented as of this encounter Procedures Procedure Name Priority Date/Time Associated Diagnosis Comments XR SCOLIOSIS OR TOTAL SPINE 2 VIEW Routine 07/09/2017 12:30 PM EST Hemivertebra documented in this encounter Results * XR Scoliosis or Total Spine 2 view (07/09/2017 12:30 PM EST) Anatomical Region Laterality Modality C-spine, T-spine, L-spine N/A Digita l Radiography Impressions 07/09/2017 1:35 PM EST Again noted, multiple vertebral anomalies with unchanged scoliosis. Narrative 07/09/2017 1:35 PM EST EXAMINATION: XR SCOLIOSIS OR TOTAL SPINE 2 VIEW CLINICAL HISTORY: Scoliosis TECHNIQUE: Frontal and lateral radiographs of the total spine were obtained. COMPARISON: Spine imaging studies ranging from 2004 through 07/18/2016 FINDINGS: Multiple vertebral anomalies are again noted in the upper and mid thoracic spine. There are 12 right ribs and 11 left ribs. There is transitional anatomy at the lumbosacral junction with hemisacralization of the L5 level. Again seen is a dextroscoliosis of the lower thoracic, which measures 31 degrees when measured from the superior endplate of the preantepenultimate rib-bearing vertebral body and the inferior endplate of the most inferior rib-bearing vertebral body, unchanged from priors. No spondylolisthesis is identified. Procedure Note Shahnaz Mary MD - 07/09/2017 EXAMINATION: XR SCOLIOSIS OR TOTAL SPINE 2 VIEW CLINICAL HISTORY: Scoliosis TECHNIQUE: Frontal and lateral radiographs of the total spine were obtained. COMPARISON: Spine imaging studies ranging from 2004 through 07/18/2016 FINDINGS: Multiple vertebral anomalies are again noted in the upper and midthoracic spine. There are 12 right ribs and 11 left ribs. There is transitionalanatomy at the lumbosacral junction with hemisacralization of the L5 level. Again seen is a dextroscoliosis of the lower thoracic, which measures 31degrees when measured from the superior endplate of the preantepenultimaterib-bearing vertebral body and the inferior endplate of the most inferiorrib-bearing vertebral body, unchanged from priors. No spondylolisthesis is identified. IMPRESSION Again noted, multiple vertebral anomalies with unchanged scoliosis. Eunice Fountain STREET VENDOR IMG DX ORDERAB LES documented in this encounter Visit Diagnoses Diagnosis Hemivertebra documented in this encounter Care Teams Publications Sales Representative Relationship Specialty Start Date End Date Florecita Pickard MD PCP - General Pediatrics 11/25/16 10/04/19 documented as of this encounter
--- OUTSIDE RECORDS SUMMARY | 2024-07-29 00:27 | XMS_ITS | Encounter Summary ---
Author Organization [facility] Address [facility] [place] [address] Care Team Providers Care Carbide Tool Maker Name Role Phone Florecita Pickard MD Primary Care Provider Unav ailable Reason for Visit * Reason Comments Headache x 1 week, off and on Abdominal Pain Other with Mirna wong Encounter Details Date Type Department Care Team (Late st Contact Info) Description 06/17/2018 3:00 PM EST Office Visit Pediatrics at [address] [phone] Gabe Bello MD Stomach ache Social History Tobacco Use Types Packs/Day Years Used Date Smoking Tobacco: Never Smokeless Tobacco: Never Comments:no one smokes at [facility] Alcohol Use Standard Drinks/Week Comments [...] Sign Reading Time Taken Comments Blood Pressure 106/56 06/17/2018 2:52 PM EST Pulse 80 06/17/2018 2:52 PM EST Temperature 36.3 ??C (97.4 ??F) 06/17/2018 2:52 PM ES T Respiratory Rate - - Oxygen Saturation - - Inhaled Oxygen Concentration - - Weight 47.2 kg (104 lb) 06/17/2018 2:52 PM EST Height - - Body Mass Index - - documented in this encounter Progress Notes * Gabe Bello MD - 06/17/2018 3:00 PM EST Assessment: Headache: likely secondary to dehydration. Very reassuring physical exam. Headache is not waking her from sleep. Less likely to be a stroke or tumor. May be stress induced tension headache. Do not appear to be migraines. Plan: Recommend hydration and acetaminophen. Stomach ache: no evidence of UTI, however not sure about the quality of the urine since it was quite cold and appeared to be like water. No evidence of appendicitis as no anorexia, pain is not severeand not localized. Not constipated. Maybe gastroenteritis Plan: recommend supportive care. Discussed history of depression and anxiety. She is currently not interested in medications and feels that she is doing well with therapy. Discussed that mental processes can sometimes present as physical complaints. Kerry is on anti- depressants and feels they didn't help her. Encouraged kerry to check in with her physician. Return to Clinic for: Prn worsening Chief Complaint: Chief Complaint Patient presents with ??? Headache x 1 week, off and on ??? Abdominal Pain ??? Other with Mirna wong History of Present Illness: Stomach ache since 06/10 Headache off and on since 06/10. Headache since yesterday. -no trigger identified. stomach ache came first when she woke up. -headache started a few hours afterwards, then headache went away. And then came back yesterday in the am. Stomach-ache: in the lower belly. Pain varies from 3-8. Not throwing up. Raritan nauseous. Regular BMsand last bowel movement was yesterday. No aggravating factors identified. Last time felt nauesous yesterday. Been able to eat regularly. No urinary symptoms. Only urinates 1-2 a day and urine is often dark. Headache: headache was a sharp pain on the right temporal, and then becoame a right frontal pain. Took some acetaminophen yesterday morning and it went away. But then the effect wore off. Took a repeat dose around nooon. And it helpd with the headche. Went away and then came back at night. At school the sun was bothering her Now headache improving. Review of Systems: PMH: Patient Active Problem List Diagnosis Code [...] of right ear H90.72 Vital Signs: BP 106/56 Pulse 80 Temp 36.3 ??C (97.4 ??F) Wt 47.2 kg (104 lb) PHYSICAL EXAM: General: appears comfortable, NAD, alert, appears age appropriate. HEENT: no lymphadenopathy, no tenderness, TMs are clear b/l Cardiac: RRR Pulm: CTAB, no wheezes, crackles Abd: soft abdomen, bowel sounds present, no HSM. Diffuse tenderness to deep palpationin all quadrants. Non distended UA: reassuring in clinic. It was cold, clear and appeared to be water. Ely says that she urinated into the cup. Gabe Bello MD * Precious Moore MD - 06/17/2018 3:00 PM EST I discussed the history and physical exam for Ely Mahmood, a 13 y.o. 5 m.o. female here for Headache (x 1 week, off and on); Abdominal Pain; and Other (with om, Mirna Anguiano) at the time of or immediately after her visit with Gabe Bello MD. The assessment andplan were formulated in discussion with me and I agree with them as documented. Staff was questioning whether her urine sample was water or urine, given specific gravity of 1.000 and completely clearappearing. If this is her urine, would not be suggestive of dehydration. No red flags for YORK, however, and agree with supportive care. Would suggest call back to follow up and see how she is feeling. documented in this encounter Plan of Treatment Upcoming Encounters Date Type Department Care Team (Late st Contact Info) Description 08/08/2024 9:00 AM EST Appointment [address] [phone] Umu Saucedo RN 08/15/2024 10:45 AM EST TH Visit (TeleHealth) Obstetrics and Gynecology at [place] [phone] [facility] OBST[place] [address] 11/25/2024 Hospital Encounter Birthing [place] [phone] [facility] OBSTETRICS [place] [address] 07/12/2025 1:40 PM EST [place] [phone] [facility] [place] [address] documented as of this encounter Procedures Procedure Name Priority Date/Time Associated Diagnosis Comments POCT URINE DIPSTICK Routine 06/17/2018 Stomach ache documented in this encounter Results * (ABNORMAL) POCT urine dipstick (06/17/2018) POC Sp Preston 1.000(A) 1.002 - 1.030 POC pH, UA 7 5.0 - 8.5 POC Leuk, UA neg Negative - Negative POC Nitrite, UA neg Negative - Negative POC Protein, UA trace Negative - Negative mg/dL POC Glucose, UA norm Normal - Normal mg/dL POC Ketone, UA neg Negative - Negative POC Urobil, UA neg 0.2 - 1.0 mg/dL POC Bili, UA neg Negative - Negative POC Blood, UA neg Negative - Negative jones/uL Precious Moore MD POINT OF CARE TEST O RDERABLES documented in this encounter Visit Diagnoses Diagnosis Stomach ache Dyspepsia and other specified disorders of function of stomach documented in this encounter Care Teams Carbide Tool Maker Relationship Specialty Start Date End Date Florecita Pickard MD PCP - General Pediatrics 11/25/16 10/04/19 documented as of this encounter
--- OUTSIDE RECORDS SUMMARY | 2024-07-29 00:27 | XMS_ITS | Encounter Summary ---
Author Organization [facility] [place] [address] Care Team Providers Care Chair And Couch Maker Name Role Phone Alondra Quach MD Primary Care Provider Jhoan hicks Encounter Details Date Type Department Care Team (Late st Contact Info) Description 05/02/2016 Telephone [place] [phone] Florinda Sierra Social History Tobacco Use Types Packs/Day Years [...] encounter Miscellaneous Notes * Telephone Encounter - Florinda Sierra - 05/02/2016 9:19 AM EST Called and left a messabout the new time and date and asked for a call back to confirm. documented in this encounter Plan of Treatment Upcoming Encounters Date Type Department Care Team (Late st Contact Info) Description 08/08/2024 9:00 AM EST Appointment [facility] [address] [place] [address] Umu Saucedo, RN 08/15/2024 10:45 AM EST TH Visit (TeleHealth) Obstetrics and Gynecology at [place] [phone] Dara Kelley MD [facility] OBSTETRICS [place] [address] 11/25/2024 Hospital [place] [phone] Dara Gonzalez MD [facility] OBSTETRICS [place] [address] 07/12/2025 1:40 PM EST Office Visit Ophthalmology at [place] [phone] Bina Agrawal OD [facility] [place] [address] documented as of this encounter Visit Diagnoses Not on filedocumented in this encounter Care Teams Chair And Couch Maker Relationship Specialty Start Date End Date Alondra Quach MD PCP - General Pediatrics 08/17/15 11/24/16 documented as of this encounter
--- OUTSIDE RECORDS SUMMARY | 2024-07-29 00:27 | XMS_ITS | Encounter Summary ---
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 (Girls, 2- 20 Years) documented in this encounter Progress Notes * Gracie Boyce PA - 07/18/2016 2:00 PM EST PATIENT NAME: Ely Mahmood AGE: 11 y.o.. MR#: [id number] ? DATE OF VISIT: 07/18/2016 ? STAFF: Today's covering physician is Dr. Hill. ? HISTORY OF PRESENT ILLNESS: Ely Mahmood is a 11 y.o. female [facility] follow up of her scoliosis. She has been doing well since her last visit. She has no back pain or problems. She is able to participate in all activities and is not limited by her back at all, she enjoys playing basketball and is now in 6th grade. She started her first pe riod in May 2016. She denies any pain in her buttock/legs. Denies any numbness/tingling in thefeet/legs, saddle anesthesia, bowel/bladder incontinence, night pain, or headaches worse with activity. ? ROS: Negative for fever, chills, SOB, chest pain, nausea, vomiting, and diarrhea. ? Patient's medications, allergies, past medical, surgical, social and family histories were reviewedand updated as appropriate. ?? No Known Allergies No current outpatient prescriptions on file.? Physical Exam Height 147.3 cm (4' 10) Weight - Scale 43.1 kg (95 lb) Constitutional: oriented to person, place, and time and well-developed, well- nourished, and in no distress. Skin: Skin is warm and dry. ? Coordinated, age appropriate gait. Heel to toe coordinated. Able to walk on heels and toes. Balances appropriately on single limbs bilaterally. No obvious rib hump/prominence. No obvious leg length discrepancy. Able to forward flex with hands to just below the knees, with no pain. Able to extend and side bend bilaterally with no pain. No TTP along cervical , thoracic and lumbar spine. No TTP along paraspinal muscles. Bilateral lower extremities are well-developed. Motor function is 5/5 for hip flexors, quadriceps, hamstrings, tibialis anterior, and gastroc/soleus. Deep tendon reflexes 2+ and symmetric. Umbilical reflexes symmetric. No clonus. Intact sensation to light touch B/L. ? RADIOLOGICAL STUDIES: I reviewed XR's taken today of the spine which showed a congenital scoliosis in the thoracic spine measuring 25 degrees, unchanged from last X-ray. ? ASSESSMENT/PLAN: Ely Mahmood is a 11 y.o. female who presents today for follow up of her scoliosis. 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 She continues to have no problems with her back. She has become more skeletally mature since her last visit, but likely has some spine growth left. She can follow up in 1 year with X-rays. documented in this encounter Plan of Treatment Upcoming Encounters Date Type Department Care Team (Late st Contact Info) Description 08/08/2024 9:00 AM EST Appointment [address] [phone] Umu Saucedo RN 08/15/2024 10:45 AM EST TH Visit (TeleHealth) Obstetrics [place] [phone] Dara Kelley MD [facility] [place] [address] 11/25/2024 [facility] [place] [phone] Dara Gonzalez MD [facility] [place] [address] 07/12/2025 1:40 PM EST Office Visit [place] [address] Bina Agrawal, JONELLE [facility] [place] [address] documented as of this encounter Visit Diagnoses Diagnosis 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
--- OUTSIDE RECORDS SUMMARY | 2024-07-29 00:27 | XMS_ITS | Encounter Summary ---
Author Organization [facility] [place] [address] Care Team Providers Care Mail Distribution Scheme Examiner Name Role Phone Shiva Joshua MD Primary Care Provider [phone] Reason for Visit * Reason Comments Well Child Here with Grandma/hemal watkins Feline Encounter Details Date Type Department Care Team (Late st Contact Info) Description 04/17/2015 2:45 PM EST Office Visit Pediatrics at [address] [phone] Alondra Quach MD Routine or child health check Social History Tobacco Use Types Packs/Day Years Used Date Smoking Tobacco: Never Smokeless Tobacco: Never Comments:No smker in home. Alcohol Use Standard Drinks/Week Comments [...] Sign Reading Time Taken Comments Blood Pressure 96/58 04/17/2015 2:40 PM EST Pulse - - Temperature - - Respiratory Rate - - Oxygen Saturation - - Inhaled Oxygen Concentration - - Weight 36.1 kg (79 lb 9.6 oz) 04/17/2015 2:40 PM EST Height 139.7 cm (4' 7) 04/17/2015 2:40 PM EST Body Mass Index 18.5 04/17/2015 2:40 PM EST Body Mass Index Percentile 62.52% 04/17/2015 2:4 0 PM EST Growth Chart: CDC (Girls, 2- 20 Years) documented in this encounter Patient Instructions * Patient Instructions* Tasha Louie, RMA - 04/17/2015 2:36 PM EST Immunization History Administered Date(s) Administered ??? DTaP 04/10/2005, 06/20/2008 ??? DTaP/Hep B/IPV 2004, 2004, 2004 ??? Enhanced Inactivated Polio 06/20/2008 ??? HIB PRP-T 2004, 2004, 2004, 04/10/2005 ??? HPV, 9-Valent 04/17/2015 ??? Hepatitis A Vaccine, Ped/adol, 2 Dose 04/17/2015 ??? Influenza Vaccine, Live, Intranasal, Quadrivalent 04/17/2015 ??? Influenza Vaccine, Whole 2004, 04/10/2005, 05/13/2005, 04/30/2006 ??? MMR Vaccine, Live 01/16/2005, 06/20/2008 ??? Meningococcal Conjugate 04/17/2015 ??? Palivizumab 2004, 2004, 2004 ??? Pneumococcal Conjugate 7 2004, 2004, 2004, 07/18/2005 ??? Tdap Vaccine 04/17/2015 ??? Varicella Vaccine, LIVE 01/16/2005, 06/20/2008 Filed Vitals: 04/17/15 1440 BP: 96/58 Height: 139.7 cm (4' 7) Weight: 36.106 kg (79 lb 9.6 oz) 20%ile based on CDC 2-20 Years pfvvwgy-wqa-qdx data using vitals from 04/17/2015. 37%ile based on CDC 2-20 Years ksecpa-ppl-dsw data using vitals from 04/17/2015. Body mass index is 18.5 kg/(m^2). 63%ile based on CDC 2-20 Years BMI-for-age data using vitals from 04/17/2015. Immunization History Administered Date(s) Administered ??? DTaP 04/10/2005, 06/20/2008 ??? DTaP/Hep B/IPV 2004, 2004, 2004 ??? Enhanced Inactivated Polio 06/20/2008 ??? HIB PRP-T 2004, 2004, 2004, 04/10/2005 ??? HPV, 9-Valent 04/17/2015 ??? Hepatitis A Vaccine, Ped/adol, 2 Dose 04/17/2015 ??? Influenza Vaccine, Live, Intranasal, Quadrivalent 04/17/2015 ??? Influenza Vaccine, Whole 2004, 04/10/2005, 05/13/2005, 04/30/2006 ??? MMR Vaccine, Live 01/16/2005, 06/20/2008 ??? Meningococcal Conjugate 04/17/2015 ??? Palivizumab 2004, 2004, 2004 ??? Pneumococcal Conjugate 7 2004, 2004, 2004, 07/18/2005 ??? Tdap Vaccine 04/17/2015 ??? Varicella Vaccine, LIVE 01/16/2005, 06/20/2008 Filed Vitals: 04/17/15 1440 BP: 96/58 Height: 139.7 cm (4' 7) Weight: 36.106 kg (79 lb 9.6 oz) 20%ile based on CDC 2-20 Years owpkliv-ftu-dhf data using vitals from 04/17/2015. 37%ile based on CDC 2-20 Years mpketz-ttb-jch data using vitals from 04/17/2015. No head circumference on file for this encounter. Normalized spnyve-joy-kurdibhlc length data available only for age 0 to 36 months. Body mass index is 18.5 kg/(m^2). 63%ile based on CDC 2-20 Years BMI-for-age data using vitals from 04/17/2015. documented in this encounter Progress Notes * Poret, Shiva M, MD - 04/18/2015 10:23 AM EST I have seen the patient and reviewed the resident's above history and I agree with the details as written. The assessment and plan were formulated in discussion with me and I agree with them as documented. Given duration of painless discharge from right ear, cleaning and closer evaluation in ENT will be critical to rule out cholesteatoma or foreign body. * Alondra Quach MD - 04/17/2015 3:08 PM EST Subjective: Patient ID: Ely Mahmood is a 10 y.o. female. HPI Ely Mahmood is a 10 y.o. here today for: Chief Complaint Patient presents with ??? Well Child Here with Grandma/gaurdian Feline Reviewed the Bright Futures questionnaire and recorded all positive remarks: Hearing Additional Concerns/Interval History: - can't find hearing aid - yellow discharge out of right ear for 1-2 months, no pain, no fevers - grandma concerned that her genitals are abnormal Health Maintenance: per AAP Bright Future Guidelines: Comments Prompts/guidelines Menses Has had spotting for 2-3 days in a row in the past few months, thinks she may have started her period. Carries a panty liner with her at school. Says that she knows about periods and does not have any questions. Menarche, LMP, regular cycles Dental Does not know where toothbrush is, just went to dentist BID brush, flossing, dentist Home Lives with grandma How are things at home? Education Doing well in school, hasn't received grades yet How is school going. Best subject? Activities Likes to shoot hoops, run, situps. Not involved in organized sports Leisure activity. Exercise. Media <2hr/day Diet Likes strawberries and grapes. Broccoli and carrots. Yogurt. Likes steak and sausage. 5210. Ca/VitD intake. Body Imag Sleep Difficulty falling asleep, likes computer. Throws fits when grandma tells her to go to bed oliverio certain time. Also likes to have a snack in the middle of the night. How many hours do you get per night? Suicide/ depression Good mood Safety Seatbelt, no bullying, wears helmet helmets, weapons, interpersonal violence, bullying, vehicle safety (seat belt, texting etc). Social/Family History: Social History Narrative 04/2015 Lives with pgp-since [age] yr of age MGM : auto garage attendant mom PGF: employed at [employer] Father has health issues-visits on a regular basis Family: father with a learning disability Parents with hx of drug addiction [place] [phone]. Filed Vitals: 04/17/15 1440 BP: 96/58 Height: 139.7 cm (4' 7) Weight: 36.106 kg (79 lb 9.6 oz) Blood pressure percentiles are 26% systolic and 39% diastolic based on 2000 NHANES data. 37%ile based on CDC 2-20 Years bjaksp-scp-jqb data using vitals from 04/17/2015. 20%ile based on CDC 2-20 Years ihdmegl-uxf-uen data using vitals from 04/17/2015. Body mass index is 18.5 kg/(m^2). 63%ile based on CDC 2-20 Years BMI-for-age data using vitals from04/17/2015. Review of Systems Acne on forehead, normal soft BMs Objective: Physical Exam General: well-appearing, friendly, smiling, interactive Skin: warm, dry, pink, no ecchymoses. Few scattered papules on forehead. HEENT: NC/AT, PERRL, OP clear and without erythema, good dentition, left TM with scarring but remaining TM pearly barakat, right ear canal with thin white discharge occluding TM but no visible perforations, no cervical lymphadenopathy Chest: CTAB, no W/R/R, 2+ femoral pulses CV: Normal S1 and S2, RRR, no M/R/G Abd: soft, non-tender, non-distended, no masses or HSM, normoactive bowel sounds : elena 3 pubic hair, labia minora are visible outside of labia majora Ext: all intact, no visible malformations Neuro: grossly intact, moves all extremities equally Assessment and Plan: Healthy adolescent. - Healthy eating: discussed eating more fruits and vegetables, decreasing snack foods. Discussed apple or banana and peanut butter before bed to keep her more full overnight as she likes to snack in the middle of the night. - Sleep hygiene: Bedtime is 9:30, no screens after 8:30. She can only take a book to bed. If she wakes up in the middle of the night she cannot use screens and should not have a snack. Discussed withgrandma that it is okay to discipline Ely by taking away screen time etc if she throws a tantrum. - Right ear discharge: TM not visualized d/t drainage, however she currently does not endorse any pain or fever. She has appointment scheduled with ENT and audiology this Thursday, so no treatment willbe initiated at this time. - Puberty: grandenriqueta was concerned that her genitals are abnormal, however I reassured grandenriqueta and Ely that it is normal for some girls to have prominent labia minora and that there is nothing to worry about. Ely has had episodes of spotting that may be menarche or impending menarche. - Left ear conductive hearing loss: reinforced importance of sitting in the front of class, especially since she does not know where her hearing aid is. Growth Parameters: BMI =63%ile based on CDC 2-20 Years BMI-for-age data using vitals from 04/17/2015. 5th-84th%ile = normal weight per CDC definitions Immunizations: Immunization record reviewed: WVD Patient and family was counseled on benefits, risks and complications for all vaccines and components as listed in the immunization category of the patient record and patient/family was given VIS foreach vaccine component. Recommended screening: Orders Placed This Encounter Procedures ??? HPV 9-Valent, 3 doses ??? HEPATITIS A VACCINE PEDI/ADOL IM ??? Tdap vaccine greater than or equal to 7yo IM ??? Meningococcal conjugate vaccine 4-valent IM ??? Flu vaccine nasal Follow up: Return in one year for your next yearly physical. * Tasha Louie Angeline - 04/17/2015 2:34 PM EST Accompanied by: guardian Top concerns: would like to discuss with provider Hospitalization, ED, or specialty visits in past 6 months: none Hearing concerns: none. Followed by ENT for hearing loss Vision concerns: none Dental/fluoride: every 6 months Behavioral Health Professional Services offered: na Immunizations/Bright Futures Screenings reviewed. Bright Futures Pre-visit Screen done. Patient Roomed By: WILMAN Martines documented in this encounter Miscellaneous Notes * Addendum Note - Shiva Joshua MD - 04/18/2015 10:20 AM ESTAddended by: SHIVA JOSHUA on: 04/18/2015 10:20 AM Modules accepted: Level of Service documented in this encounter Plan of Treatment Upcoming Encounters Date Type Department Care Team (Late st Contact Info) Description 08/08/2024 9:00 AM EST Appointment [address] [phone] Umu Suacedo RN 08/15/2024 10:45 AM EST TH Visit (TeleHealth) Obstetrics and Gynecology at [place] [phone] Dara Kelley MD [facility] OBSTETRICS [place] [address] 11/25/2024 Hospital Encounter Birthing [place] [phone] Dara Gonzalez MD [facility] OBSTETRICS [place] [address] 07/12/2025 1:40 PM EST Office Visit Ophthalmology at [place] [phone] Bina Agrawal OD [facility] [place] [address] documented as of this encounter Visit Diagnoses Diagnosis Routine or child health check documented in this encounter Care Teams Mail Distribution Scheme Examiner Relationship Specialty Start Date End Date Shiva Joshua MD PCP - General 05/07/10 08/16/15 documented as of this encounter
--- OUTSIDE RECORDS SUMMARY | 2024-07-29 00:27 | XMS_ITS | Encounter Summary ---
Author Organization [facility] Address [facility] [place] [address] Care Team Providers Care Supervisor Fur Dressing Name Role Phone Alondra Quach MD Primary Care Provider Jhoan hicks Reason for Visit * Reason Comments Annual Exam Here with grandmoyuliana lamb Other Thing on her arm, No visits Encounter Details Date Type Department Care Team (Late st Contact Info) Description 04/22/2016 3:30 PM EST Office Visit Pediatrics at [address] [phone] Alondra Quach MD Encounter for routine child health examination without abnormal findings; Wears hearing aid Social History Tobacco Use Types Packs/Day Years [...] Sign Reading Time Taken Comments Blood Pressure 100/68 04/22/2016 3:11 PM EST Pulse - - Temperature - - Respiratory Rate - - Oxygen Saturation - - Inhaled Oxygen Concentration - - Weight 41.8 kg (92 lb 3.2 oz) 04/22/2016 3:11 PM EST Height 144.8 cm (4' 9) 04/22/2016 3:11 PM EST Body Mass Index 19.95 04/22/2016 3:11 PM EST Body Mass Index Percentile 70.63% 04/22/2016 3:1 1 PM EST Growth Chart: [facility] (Girls, 2- 20 Years) documented in this encounter Progress Notes * Alondra Quach MD - 04/22/2016 3:30 PM EST Subjective: Patient ID: Ely Mahmood is a 11 y.o. female. HPI Ely Mahmood is a 11 y.o. here today for: Chief Complaint Patient presents with ??? Annual Exam Here with grandmother. ??? Other Thing on her arm, No visits Accompanied by: grandmother Additional Concerns/Interval History: - ENT appointment coming up - not currently using hearing aid because at last visit her hearing in left ear was normal - eye exam coming up Health Maintenance and Age Appropriate Review of Systems: Health Maintenance: per AAP Bright Future Guidelines: Comments Prompts/guidelines Menses Not started menses Menarche, LMP, regular cycles Dental Doesn't brush teeth regularly. Upcoming dentist appointment. BID brush, flossing, dentist Home Gets along well, younger bio sister now lives with her and grandparents How are things at home? Education 6th grade, going well. No grades yet. Good friends in class. How is school going. Best subject? Activities 8 hrs TV and iPad daily. Leisure activity. Exercise. Media <2hr/day Diet Flavored water. 3 fruits/veggies daily. Snack packs after school. 5210. Ca/VitD intake. Body Imag Sleep Trouble falling asleep and staying asleep. Recently changed bedtime from 8:30 to 9:30. Using iPad for music. Reading helps her fall asleep. How many hours do you get per night? Safety seatbelt helmets, weapons, interpersonal violence, bullying, vehicle safety (seat belt, texting etc). Pre-Sports Eval: Consider cardiology referral if concerns about the following table or if the following are present on exam: HTN, heart murmur, abnormal femoral pulses, stigmata of Marfan's Denies Comments Exertional chest pain/discomfort x Excessive exertional dyspnea/SOB x Unexplained syncope (excluding vasovagal) x Previous head injury/concussion x h/o fracture or sprain x FHx of premature sudden <50yo or cardiac conditions (long QT, HCM, Marfan, arrhythmia) x Social/Family History: Social History Narrative 04/2015 Lives with pgp-since [age] yr of age MGM : time stamp assembler mom PGF: employed at [employer] Father has health issues-visits on a regular basis Family: father with a learning disability Parents with hx of drug addiction Family History Updated [place] [facility] [phone]. Vitals: 04/22/16 1511 BP: 100/68 Weight: 41.8 kg (92 lb 3.2 oz) Height: 144.8 cm (4' 9) Blood pressure percentiles are 34.7 % systolic and 71.5 % diastolic based on NHBPEP's 4th Report. 45 %ile based on CDC 2-20 Years ruqtnz-nxt-coy data using vitals from 04/22/2016. 12 %ile based on CDC 2-20 Years [id number] data using vitals from 04/22/2016. Body mass index is 19.95 kg/(m^2). 71 %ile based on CDC 2-20 Years BMI-for-age data using vitals from 04/22/2016. Review of Systems No constipation Objective: Physical Exam General: well-appearing, comfortable Skin: warm, dry, pink. Scattered open and closed comedones on forehead. On right forearm is a 3mm rubbery subcutaneous nodule. HEENT: NC/AT, PERRL, EOMI, OP clear and without erythema, TMs with scarring b/l, no cervical lymphadenopathy Chest: CTAB, no W/R/R CV: Normal S1 and S2, RRR, no M/R/G, 2+ peripheral pulses Abd: soft, non-tender, non-distended, no masses or HSM, normoactive bowel sounds : elena III breasts and pubic hair Ext: all intact, no visible malformations Neuro: grossly intact, moves all extremities equally, normal gait Assessment and Plan: Healthy adolescent. Discussed healthy eating and brushing teeth BID. Growth Parameters: BMI =71 %ile based on CDC 2-20 Years BMI-for-age data using vitals from 04/22/2016. 5th-84th%ile = normal weight per CDC definitions Immunizations: Immunization record reviewed: UTD Patient and family was counseled on benefits, risks and complications for all vaccines and components as listed in the immunization category of the patient record and patient/family was given VIS foreach vaccine component. Orders Placed This Encounter Procedures ??? HPV 9-Valent, 3 doses ??? Flu vaccine greater than or equal to 3yo preservative free Follow up: Return in one year for your next yearly physical. * Horacio Joshua MD - 04/22/2016 3:30 PM EST The case was discussed at [...] Description 08/08/2024 9:00 AM EST Appointment [address] [phone] Umu Saucedo, RN 08/15/2024 10:45 AM EST TH Visit (TeleHealth) Obstetrics [place] [phone] Dara Kelley MD [facility] [place] [address] 11/25/2024 [place] [phone] Dara Gonzalez MD [facility] [place] [address] 07/12/2025 1:40 PM EST Office [place] [address] Bina Agrawal OD [facility] [place] [address] documented as of this encounter Visit Diagnoses Diagnosis Encounter for routine child health examination without abnormal findings Routine or child health check Wears hearing aid Other postprocedural status documented in this encounter Care Teams Supervisor Fur Dressing Relationship Specialty Start Date End Date Alondra Quach MD PCP - General Pediatrics 08/17/15 11/24/16 documented as of this encounter
--- OUTSIDE RECORDS SUMMARY | 2024-07-29 00:27 | XMS_ITS | Encounter Summary ---
Author Organization [facility] Address [facility] [place] [address] Care Team Providers Care Head Men'S Tennis Coach Name Role Phone Florecita Pickard MD Primary Care Provider Unav ailable Reason for Visit * Reason Onset Date Comments Triage 08/30/2018 Encounter Details Date Type Department Care Team (Late st Contact Info) Description 08/30/2018 Telephone Pediatrics at [address] [phone] Carolyne Loza Triage Social History Tobacco Use Types Packs/Day Years Used Date Smoking Tobacco: Never Smokeless Tobacco: Never Comments:no one smokes at [facility] Alcohol Use Standard Drinks/Week Comments No 0 (1 standard drink = 0.6 oz pur e alcohol) Sex and Gender Information Value Date Recorded Sex Assigned at Female 07/24/2023 9:35 AM EST Gender Identity Female 07/24/2023 9:35 AM EST Sexual Orientation Straight 07/24/2023 9: 35 AM EST documented as of this encounter Miscellaneous Notes * Telephone Encounter - Pam Cho RN - 08/31/2018 11:56 AM EDT Message left. * Telephone Encounter - Pam Cho RN - 08/30/2018 1:51 PM EDT Message left. * Telephone Encounter - Carolyne Loza - 08/30/2018 11:35 AM EDT Message: Pt's grandmother, Mirna Anguiano calling stating the pt is still having stomach pain and they do not know what to do. She states the pt keeps missing school and they would like to get to the bottom of this. Please call back to discuss. Ask caller their first and last name and relationship to the patient: Pt's grandmother Best time to call back: any Ok to leave a message: [yes] Ok to send [facility] message: [no] Offered Appointment: would like to speak with a nurse MA/Nurse contacted via: Message: x Call: Pager: documented in this encounter Plan of Treatment Upcoming Encounters Date Type Department Care Team (Late st Contact Info) Description 08/08/2024 9:00 AM EST Appointment [address] [phone] Umu Saucedo RN 08/15/2024 10:45 AM EST TH Visit (TeleHealth) Obstetrics [place] [phone] Dara Kelley MD [facility] OBSTETRICS AND [place] [address] 11/25/2024 Hospital [place] [phone] Dara Gonzalez MD [facility] OBSTETRICS AND GYNECOLOGY [place], [place] [phone] 07/12/2025 1:40 PM EST Office [place] [address] Bina Agrawal, OD [facility] [place] [address] documented as of this encounter Visit Diagnoses Not on filedocumented in this encounter Care Teams Head Men'S Tennis Coach Relationship Specialty Start Date End Date Florecita Pickard MD PCP - General Pediatrics 11/25/16 10/04/19 documented as of this encounter
--- OUTSIDE RECORDS SUMMARY | 2024-07-29 00:27 | XMS_ITS | Encounter Summary ---
Author Organization [facility] Address [facility] [place] [address] Care Team Providers Care Payloader Operator Name Role Phone Florecita Pickard MD Primary Care Provider Unav ailable Reason for Visit * Reason Comments Follow-up Other with Cheri wong; concerns with menses Encounter Details Date Type Department Care Team (Late st Contact Info) Description 05/14/2018 1:30 PM EST Office Visit Pediatrics at [address] [phone] Florecita Pickard MD Encounter for female control Social History [...] Sign Reading Time Taken Comments Blood Pressure 104/76 05/14/2018 1:15 PM EST Pulse 84 05/14/2018 1:15 PM EST Temperature - - Respiratory Rate - - Oxygen Saturation - - Inhaled Oxygen Concentration - - Weight 46.1 kg (101 lb 9.6 oz) 05/14/2018 1:15 P M EST Height - - Body Mass Index - - documented in this encounter Patient Instructions * Patient Instructions* Florecita Pickard MD - 05/14/2018 1:30 PM EST Please return in 3 months for the next Depo shot. Side effects may include soreness and redness at the site. You may experience spotting, absent period, or heavier period on this medication. It is important to continue to use barrier contraception (condomes) while on this medication to prevent sexually transmitted infections. Please return to clinic if you have concerns about side effects including heavy bleeding, pain in your legs, severe headache. For acne, 1. Use a facewash which contains Benzoyl peroxide at least once a day 2. Use a salicylic acid containing face cream or spot treatment 3. Change pillow cases at least once a week and try to keep hair off of the face 4. Try to avoid touching your face with your fingers and avoid popping pimples as this can cause scarring. documented in this encounter Progress Notes * Florecita Pickard MD - 05/14/2018 1:30 PM EST Assessment: Ely Mahmood is a 13 y.o. presenting for contraception follow up. She did not tolerate starting her OCP and today we discussed alternative options, including LARC. After discussing benefits and possible side effects, Ely will start the Depo Provera injections, starting today and then every3 months. We also discussed initial management for her acne including use of a benzoyl peroxide face wash and salicylic acid spot treatment. Plan: 1. Depo provera today after test to confirm negative 2. Return in 3 months for next injection 3. Call or return with any concerns Chief Complaint: Chief Complaint Patient presents with ??? Follow-up ??? Other with Sindi wongne; concerns with menses History of Present Illness: Started OCP 03/29. Had some nausea initially with taking OCP, once had an episode of vomiting. Only took OCP for 5 days and stopped on 04/08. She denies having been sexually active since that time. Has not had her period since 04/12-04/18. Previous period was 03/23-03/29. Wants to discuss different control options. Interested in LARC. PMH: Patient Active Problem List Diagnosis Code [...] of right ear H90.72 Vital Signs: BP 104/76 Pulse 84 Wt 46.1 kg (101 lb 9.6 oz) PHYSICAL EXAM: Alert and well-appearing, mood and affect appropriate. Scattered papules and pustules over forehead and chin. Florecita Pickard MD 05/14/2018 * Edgar Martinez MD - 05/14/2018 1:30 PM EST The case was discussed [...] Info) Description 08/08/2024 9:00 AM EST Appointment [address] [phone] Umu Saucedo RN 08/15/2024 10:45 AM EST TH Visit (TeleHealth) Obstetrics [place] [phone] Dara Kelley MD [facility] OBSTETRICS AND [place] [address] 11/25/2024 Hospital [place] [phone] Dara Gonzalez MD [facility] OBSTETRICS AND [place] [address] 07/12/2025 1:40 PM EST Office Visit Ophthalmology at [place] [phone] Bina Agrawal OD [facility] [place] [address] documented as of this encounter Procedures Procedure Name Priority Date/Time Associated Diagnosis Comments POCT URINE Routine 05/14/2018 1:59 PM EST documented in this encounter Results * POCT urine (05/14/2018 1:59 PM EST) POC Urine HCG Negative Negative - Negative POC Control Internal Controls Acceptable 05/14/2018 1:59 PM EST Edgar Martinez MD POINT OF CARE TEST O RDERABLES documented in this encounter Visit Diagnoses Diagnosis Encounter for female control Other specified contraceptive management documented in this encounter Administered Medications Inactive Administered Medications - up to 3 most recent administrations Medication Order MAR Action Action Date Dose Rate Site medroxyPROGESTERone (DEPO-SUBQ PROVERA) injection 104 mg 104 mg (2.26 mg/kg/dose), Subcutaneous, EVERY 3 MONTHS, First dose on Thu05/14/18 at 1430, Until Discontinued, Routine, Is this medication being ordered for contraception? This question is required for billing. Yes Given 05/14/2018 2:11 PM EST 104 mg documented in this encounter Care Teams Payloader Operator Relationship Specialty Start Date End Date Florecita Pickard MD PCP - General Pediatrics 11/25/16 10/04/19 documented as of this encounter
--- OUTSIDE RECORDS SUMMARY | 2024-07-29 00:27 | XMS_ITS | Encounter Summary ---
Author Organization [facility] Address [facility] [place] [address] Care Team Providers Care Swimming Coach Name Role Phone Horacio Joshua MD Primary Care Provider [phone] Reason for Visit * Reason Comments Follow-up had a hearing test t josr, no pain, says she no longer has to wear her hearing aid Encounter Details Date Type Department Care Team (Late st Contact Info) Description 05/03/2015 4:00 PM EST Office [place] [address] Nella Stone APRN [facility] [place] [address] Chronic otitis media, unspecified laterality, unspecified otitis media type Social History Tobacco Use Types Packs/Day [...] - Inhaled Oxygen Concentration - - Weight 36.3 kg (80 lb) 05/03/2015 4:00 PM EST Height 141 cm (4' 7.5) 05/03/2015 4:00 PM EST Body Mass Index 18.26 05/03/2015 4:00 PM EST Body Mass Index Percentile 58.94% 05/03/2015 4:0 0 PM EST Growth Chart: CDC (Girls, 2- 20 Years) documented in this encounter Progress Notes * Nella Stone, REACH TRUCK OPERATOR - 05/03/2015 4:09 PM EST Date of Visit:05/03/2015 Location of Visit: Otolaryngology Clinic, [facility] Patient: Ely Mahmood 2005, [id number] Chief Complaint: Ely is an 10-year-old with a history of chronic serous otitis media s/p PE tubes,speech delay, and CHL. She has been using a hearing aid on the left. She is followed by . She was last seen on 07/18/2013. Interval History: Gricel is an 10-year-old with the above history. She has a history of having chronicmastoiditis and underwent left mastoidectomy on January 23, 2010.. With her last exam there was no evidence of fluid in the ears and the ears looked clear. . She is recently had otorrhea from the right ear. She was given Ciprodex drops which seemed to help clear. She has not been using a hearing aidfor the left ear for some time but she has it. She feels that she's been hearing pretty well. She has had no other significant infections. Doing well in school. Past Medical History: Other than above, Past Medical History Diagnosis Date ??? Ex-29 week ??? Speech delay ??? Developmental delay ??? Bronchopulmonary dysplasia ??? Chronic otitis media . Medications: Current Outpatient Prescriptions on File Prior to Visit Medication Sig Dispense Refill ??? ciprofloxacin-dexamethasone (CIPRODEX) 0.3-0.1 % Drops, Suspension Place 4 drops into the rightear 2 times daily for 7 days. 7.5 mL 0 ??? dextromethorphan-guaiFENesin (ROBITUSSIN) 10-100 mg/5 mL Syrup Take 5 mLs by mouth 3 times daily as needed for Cough. No current facility-administered medications on file prior to visit. Allergies:Review of patient's allergies indicates no known allergies. ROS: Pertinent positive findings discussed above. No other findings on review of constitutional, visual, cardiovascular, respiratory, gastrointestinal, genitourinary, musculoskeletal, dermatologic, neurological, psychiatric, endocrine, hematologic or immunologic systems. Physical Examination: Height 141 cm (4' 7.5), weight 36.288 kg (80 lb). General: Age-appropriate interactive behavior in no acute distress. Face:Symmetric without dysmorphic features. Ears: Auricles symmetric bilaterally without lesions. External auditory canals are clear. On the left, tympanic membrane is clear. Middle ear on the left without middle ear pathology. On the right, tympanic membrane with a perforation. Middle ear on the right with fluid. Nose: Patent anteriorly; healthy pink mucosa without lesions. Septum without significant deviation. Mouth: Lips and gingiva pink, moist, without lesions. Dentition healthy. Tongue and floor of mouth soft without lesions or masses. Hard palate without lesions. Pharynx: Soft palate without lesions; uvula intact without evidence of submucus cleft palate. Oropharynx symmetric. Neck: No lymphadenopathy. Audio: Hearing wnl. Tympanograms flat with large volume on the right, left is wnl. Impression: 1) Hx of chronic otitis media with hearing loss/and right TM perforation. Plan: Keep the ear dry on the right. Doc Molds given for the right ear. Ciprodex otic drops, 5 gttsbid x 3 days more. A copy of the audio was given to the grandmother. RTC in 6 months with an audio evaluation and to see for a recheck of TM perforation. Nella GRACE [facility] Otolaryngology-Head and Neck Surgery [place], [place] [phone] documented in this encounter Plan of Treatment Upcoming Encounters Date Type Department Care Team (Late st Contact Info) Description 08/08/2024 9:00 AM EST Appointment [address] [place] [address] Umu Saucedo, RN 08/15/2024 10:45 AM EST TH Visit (TeleHealth) Obstetrics and Gynecology at [place] [phone] Dara Kelley MD [facility] [place] [address] 11/25/2024 Hospital Encounter Birthing [place] [phone] Dara Gonzalez MD [facility] [place] [address] 07/12/2025 1:40 PM EST Office Visit Ophthalmology at [place] [phone] Bina Agrawal OD [facility] [place] [address] documented as of this encounter Visit Diagnoses Diagnosis Chronic otitis media, unspecified laterality, unspecified otitis media type documented in this encounter Care Teams Swimming Coach Relationship Specialty Start Date End Date Horacio Joshua MD PCP - General 05/07/10 08/16/15 documented as of this encounter
--- OUTSIDE RECORDS SUMMARY | 2024-07-29 00:27 | XMS_ITS | Encounter Summary ---
Author Organization [facility] Address [facility] [place] [address] Care Team Providers Care [employer] Division Manager Name Role Phone Florecita Pickard MD Primary Care Provider Unav ailable Reason for Visit * Reason Comments Follow-up H/O chronic Otitis m edia. TM perf. right. Recheck TM perf. No new concerns today . Patient is here with her grandmother today. Encounter Details Date Type Department Care Team (Latest Contact Info) Description 03/18/2017 2:00 PM EDT Office [place] [address] Chino Matta MD [facility] [place] [address] Tympanosclerosis, unspecified laterality; H/O tympanomastoidectomy Social History Tobacco Use Types Packs/Day Years [...] - Inhaled Oxygen Concentration - - Weight 44.9 kg (99 lb) 03/18/2017 1:48 PM EDT Height 149.9 cm (4' 11) 03/18/2017 1:48 PM EDT Body Mass Index 20 03/18/2017 1:48 PM EDT Body Mass Index Percentile 64.58% 03/18/2017 1:4 8 PM EDT Growth Chart: [facility] (Girls, 2- 20 Years) documented in this encounter Progress Notes * Chino Matta MD - 03/18/2017 2:00 PM EDT Subjective: Patient ID: Ely Mahmood is a 12 y.o. female. HPI H/O chronic serous Otitis media. TM perf. right. Recheck TM perf. No new concerns today . History of having chronic mastoiditis and underwent left mastoidectomy on January 23, 2010, Dr. Joseph. She feels well. She has no hearing concerns. No ear infections in the interval since last seen Review of Systems HENT: Negative for ear discharge, ear pain and hearing loss. Neurological: Negative for dizziness. Objective: Physical Exam Constitutional: She is oriented to person, place, and time. She appears well- developed. No distress. HENT: Head: Normocephalic. Right Ear: External ear normal. Left Ear: External ear normal. Neurological: She is alert and oriented to person, place, and time. Ears examined and cleaned with a binocular microscope. Right Ear: Normal EAC, TM hypermobile with respirations, intact, no middle ear disease. 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 Assessment and Plan: Patient continues to do well. Physical exam is without findings of concern today. Her hearing is improved. We discussed the area of possible collection of tissue which could be a risk for cholesteatoma formation in future, necessitating regular ear cleaning. RTC 1 year for ear check. Sooner with any new ear pain, drainage, hearing change. I have discussed the case with the Karen Magallanes APRN reviewed the pertinent details in the chart, interviewed and examined the patient. I agree with the documented history, exam findings and management plan. Chino Matta MD [phone] documented in this encounter Plan of Treatment Upcoming Encounters Date Type Department Care Team (Late st Contact Info) Description 08/08/2024 9:00 AM EST Appointment [address] [phone] Umu Saucedo, RN 08/15/2024 10:45 AM EST TH Visit (TeleHealth) Obstetrics and Gynecology at [place] [phone] Dara Kelley MD [facility] DR OBSTETRICS [place] [address] 11/25/2024 Hospital Encounter Birthing [place] [phone] Dara Gonzalez MD [facility] DR OBSTETRICS [place] [address] 07/12/2025 1:40 PM EST Office Visit Ophthalmology at [place] [phone] Bina Agrawal OD [facility] [place] [address] documented as of this encounter Visit Diagnoses Diagnosis Tympanosclerosis, unspecified laterality H/O tympanomastoidectomy Other postprocedural status documented in this encounter Care Teams [employer] Division Manager Relationship Specialty Start Date End Date Florecita Pickard MD PCP - General Pediatrics 11/25/16 10/04/19 documented as of this encounter
--- OUTSIDE RECORDS SUMMARY | 2024-07-29 00:27 | XMS_ITS | Encounter Summary ---
Author Organization [facility] Address [place] [address] Care Team Providers Care Wood Scaler Name Role Phone Florecita Pickard MD Primary Care Provider Unav ailable Reason for Visit * Reason Comments Insomnia pt has other concern s for the provider,pt here with grandmother/guardian Mirna Encounter Details Date Type Department Care Team (Late st Contact Info) Description 02/16/2018 1:30 PM EDT Office Visit Pediatrics at [address] [phone] Florecita Pickard MD Depression, unspecified depression type Social History Tobacco Use Types Packs/Day Years Used Date Smoking Tobacco: Never Smokeless Tobacco: Never Alcohol Use Standard Drinks/Week [...] Sign Reading Time Taken Comments Blood Pressure 116/70 02/16/2018 1:24 PM EDT Pulse 72 02/16/2018 1:24 PM EDT Temperature - - Respiratory Rate - - Oxygen Saturation - - Inhaled Oxygen Concentration - - Weight 46.8 kg (103 lb 3.2 oz) 02/16/2018 1:24 P M EDT Height - - Body Mass Index - - documented in this encounter Patient Instructions * Patient Instructions* Florecita Pickard MD - 02/16/2018 1:30 PM EDT 1. Have a set bedtime and bedtime routine for your child. 2. Bedtime and wake-up time should be about the same time on school nights and non-school nights. There should not be more than about an hour difference from one day to another. 3. Make the hour before bed shared quiet time. Avoid high-energy activities, such as rough play, and stimulating activities, such as watching television or playing computer games, just before bed. 4. Don't send your child to bed hungry. A light snack (such as milk and cookies) before bed is a good idea. Heavy meals within an hour or two of bedtime, however, may interfere with sleep. 5. Avoid products containing caffeine for at least several hours before bedtime. These include caffeinated sodas, coffee, tea, and chocolate. 6. Make sure your child spends time outside every day whenever possible and is involved in regular exercise. 7. Keep your child's bedroom quiet and dark. A low-level night light is acceptable for children whofind completely dark rooms frightening. 8. Keep your child's bedroom at a comfortable temperature during the night (about 75??F). 9. Don't use your child's bedroom for time-out or punishment. 10. Keep the television set out of your child's bedroom. Children can easily develop the bad habit of needing the television to fall asleep. It's also much more difficult to control your child's viewing if the set is in the bedroom. . BEHAVIORAL HEALTH CARE FOR YOUR CHILD Your PCP is recommending that your child see a mental health professional. Please follow the instructions below. 1. Please schedule a follow-up appointment with your child???s PCP for one month from now on your way out. 2. How to find a therapist for your child ??? Use the [employer] Therapy Finder website to narrow down your search-- www.Blink Messenger.yWorld ??? [facility], a large group practice with offices in [facility], and [place], [place] [phone] ??? If you are enrolled in Medicaid your state specific local community mental health center may augie very good option for your child. In the [facility] they are: o [facility] ([place]) [phone] o [facility] ([place]) [phone] o Outside the [facility] in [place] and [place], google the community mental health center in your county. 3. When should you call for help? There are professional resources in our pediatric clinic at [facility] who can help: o Renetta Urban MSW, [facility], Behavioral Health Clinician, is a licensed provider who can assess and recommend options for your child. Her number is [phone]. o Cally Wiggins, PhD, [facility], Continuing Mechanical Repair Worker, is a licensed funeral director and embalmer with an expertise in mental health and psychosocial issues. Her number is [phone]. ??? In CASE OF EMERGENCY: o Emergency service crisis hotlines: - [place]: (WC) - [place]: ([facility]) o OR CALL 911 o Suicide Prevention Hotline: Where can you learn more? For a description of approaches to counseling based upon presenting need, please refer to the following links: https://childmind.org/guide/hprop-md-kczetfrckm-treatments/juli-jh-qwiciktdcu/ https://www.nimh.nih.gov/heatlh/topics/psychotherapies/index.shtml documented in this encounter Progress Notes * Florecita Pickard MD - 02/16/2018 1:30 PM EDT Assessment: Ely Mahmood is a 13 y.o. presenting with symptoms of insomnia and difficulty concentrating, with moderate depression based on PHQ-9. She has many recent social stressors and no longer has a counselor that she can talk with. She and her grandmother are eager to find a therapist that she 'clicks' with. Plan: Follow up in 1 month with PCP (me) Sleep hygiene nightly, discussed strategies Trial of nightly melatonin, not using Unisom on a regular basis Reach out to Bailey Mock Contact information for Renetta Urban provided Chief Complaint: Chief Complaint Patient presents with ??? Insomnia pt has other concerns for the provider,pt here with grandmother/guardian Mirna History of Present Illness: Having trouble going to sleep at night and when she falls asleep she will then wake up and have a hard time falling back asleep. During the summer she was staying up until 3-4am and sleeping until 11am. Occasionally she would wake up in the middle of the night but would fall back asleep. School started one week ago and she has been trying to go to bed at 9-10pm, and she has to wake up at 6am for school. Last night she slept through the night. She used to snore but now has her adenoids out. She endorses difficulty concentrating at school this past week because she is worried about her grandfather. She has had decreased appetite over the last few weeks. She denies any feelings of guilt. She denies any anxiety. She denies any SI or HI. Grandmother is concerned about depression since they moved 6 months ago, especially since she does not have a counselor at school that she feels comfortable talking with, and since she no longer has her animals that she no longer has (they are at grandfather's house). Her grandmother has depression. She was able to trust and talk with her teacher and counselor at school last year but this year feels like she has no one Recent stressors: -Grandfather has diabetes and might have cancer -Father in long-term -Not being with animals -Mom coming back into life -School starting back PMH: Patient Active Problem List Diagnosis Code [...] of right ear H90.72 Vital Signs: BP 116/70 Pulse 72 Wt 46.8 kg (103 lb 3.2 oz) LMP 02/16/2018 PHQ-9 Score of 12 --> Moderate depression Florecita Pickard MD * Wendy Ewing MD - 02/16/2018 1:30 PM EDT The case was discussed [...] Description 08/08/2024 9:00 AM EST Appointment [address] [phone] Umu Saucedo RN 08/15/2024 10:45 AM EST TH Visit (TeleHealth) Obstetrics [place] [phone] Dara Kelley MD [facility] [place] [address] 11/25/2024 Hospital [place] [phone] Dara Gonzalez MD [facility] [place] [address] 07/12/2025 1:40 PM EST Office [place] [address] Bina Agrawal, JONELLE [facility] [place] [address] documented as of this encounter Visit Diagnoses Diagnosis Depression, unspecified depression type documented in this encounter Care Teams Wood Scaler Relationship Specialty Start Date End Date Florecita Pickard MD PCP - General Pediatrics 11/25/16 10/04/19 documented as of this encounter
--- OUTSIDE RECORDS SUMMARY | 2024-07-29 00:27 | XMS_ITS | Encounter Summary ---
Author Organization [facility] Address [facility] [place] [address] Care Team Providers Care Senior Sales Consultant Name Role Phone Folrecita Pickard MD Primary Care Provider Unav ailable Reason for Visit * Reason Comments Nausea Here with grandSabiha robison alyline X 2 weeks Fatigue Very tired. Not able to attend school Dizziness not consistant. Come and goes Encounter Details Date Type Department Care Team (Late st Contact Info) Description 09/03/2017 11:40 AM EDT Office Visit Pediatrics at [address] [phone] Piper Ugarte, ABRASIVE MIXER [facility] [place] [address] Tiredness Social History Tobacco Use Types Packs/Day Years [...] Sign Reading Time Taken Comments Blood Pressure 108/72 09/03/2017 12:02 PM EDT Pulse - - Temperature 36.9 ??C (98.4 ??F) 09/03/2017 12:02 PM E DT Respiratory Rate - - Oxygen Saturation - - Inhaled Oxygen Concentration - - Weight 46 kg (101 lb 6.4 oz) 09/03/2017 12:02 PM EDT Height - - Body Mass Index - - documented in this encounter Progress Notes * Piper Ugarte APRN - 09/03/2017 11:40 AM EDT Subjective: Patient ID: Ely Mahmood is a 12 y.o. female. HPI Chief Complaint Patient presents with ??? Nausea Here with grandma, Falyline X 2 weeks ??? Fatigue Very tired. Not able to attend school ??? Dizziness not consistant. Come and goes Review of Systems Has similar illness last yr Elimin: nml Menses: Jul 23- Diet: drinking diet pepsi; water nad c. coconut milk; nml diet for dinner lunch Has been out of School since thu- 7th grade; [place] feels dizzy-duration: a few seconds Sleeping: sleeps all day; 9:30pm-6:30am Now up by 9am-going to bed 4am Stomach ache:not really When asked stated loves school No recent changes at home or in school; denies being teased or bullying Objective: Physical Exam Alert and good communicator Heent: nml; nml appearing tm's Chest;No murmur Lungs CTA Abd: soft n/t Skin: no rash Neuro :nml; speech clear, nml gait Assessment and Plan: 12 yr old with hx of poor sleep Discussed importance of trying to stay awake during the day and go to bed same time and get up sametime next several days No recent change in diet as reported to cause dizziness To have 3 meals and 3 snacks a day To call if no improvement in sleeping or feeling dizzy documented in this encounter Plan of Treatment Upcoming Encounters Date Type Department Care Team (Late st Contact Info) Description 08/08/2024 9:00 AM EST Appointment [address] [phone] Umu Saucedo RN 08/15/2024 10:45 AM EST TH Visit (TeleHealth) Obstetrics and Gynecology at [place] [phone] Dara Kelley MD [facility] [place] [address] 11/25/2024 Hospital [place] [address] Dara Gonzalez MD [facility] OBST[facility] [address] 07/12/2025 1:40 PM EST Office Visit Ophthalmology at [place] [phone] Bina Agrawal OD [facility] [place] [address] documented as of this encounter Procedures Procedure Name Priority Date/Time Associated Diagnosis Comments POCT URINE Routine 09/03/2017 Tiredness POCT URINE DIPSTICK Routine 09/03/2017 Tiredness documented in this encounter Results * POCT urine dipstick (09/03/2017) POC Sp [place] 1.025 1.002 - 1.030 POC pH, UA 5 5.0 - 8.5 POC Leuk, UA ++ Negative - Negative POC Nitrite, UA neg Negative - Negative POC Protein, UA trace Negative - Negative mg/dL POC Glucose, UA norm Normal - Normal mg/dL POC Ketone, UA neg Negative - Negative POC Urobil, UA neg 0.2 - 1.0 mg/dL POC Bili, UA neg Negative - Negative POC Blood, UA neg Negative - Negative jones/uL Piper Ugarte APRN POINT OF CARE TEST ORDERABLES * POCT urine (09/03/2017) POC Urine HCG Negative Negative - Negative POC Control Internal Controls Acceptable Piper Ugarte ABRASIVE MIXER POINT OF CARE TEST ORDERABLES documented in this encounter Visit Diagnoses Diagnosis Tiredness Other malaise and fatigue documented in this encounter Care Teams Senior Sales Consultant Relationship Specialty Start Date End Date Florecita Pickard MD PCP - General Pediatrics 11/25/16 10/04/19 documented as of this encounter
--- OUTSIDE RECORDS SUMMARY | 2024-07-29 00:27 | XMS_ITS | Encounter Summary ---
Author Organization [facility] Address [facility] [place] [address] Care Team Providers Care Hair Salon Manager Name Role Phone Florecita Pickard MD Primary Care Provider Unav ailable Reason for Visit * Reason Comments Annual Exam Here with Juanito tyler. Other No concerns. No ER v isits. Encounter Details Date Type Department Care Team (Late st Contact Info) Description 06/01/2018 2:00 PM EST Office Visit Pediatrics at [address] [phone] Florecita Pickard MD Encounter for routine child health examination without abnormal findings Social History Tobacco Use Types Packs/Day Years Used Date Smoking Tobacco: Never Smokeless Tobacco: Never Comments:no one smokes at [facility] Alcohol Use Standard Drinks/Week Comments [...] Reading Time Taken Comments Blood Pressure 102/60 06/01/2018 1:51 PM EST Pulse - - Temperature - - Respiratory Rate - - Oxygen Saturation - - Inhaled Oxygen Concentration - - Weight 46.8 kg (103 lb 3.2 oz) 06/01/2018 1:51 P M EST Height 149.2 cm (4' 10.75) 06/01/2018 1:[address] Body Mass Index 21.02 06/01/2018 1:51 PM EST Body Mass Index Percentile 67.03% 06/01/2018 1:5 1 PM EST Growth Chart: [facility] (Girls, 2- 20 Years) documented in this encounter Patient Instructions * Patient Instructions* Trisha Wray, [facility] - 06/01/2018 2:00 PM EST Images from the original note were not included. Your Growing and Changing Child PHYSICAL GROWTH AND DEVELOPMENT ?? Talk with your child about how her body is changing with puberty. ?? Encourage your child to brush his teeth twice a day and floss once a day. ?? Help your child get to the dentist twice a year. ?? Serve healthy food and eat together as a family often. ?? Encourage your child to get 1 hour of vigorous physical activity every day. ?? Help your child limit screen time (TV, video games, or computer) to 2 hours a day, not includinghomework time. ?? Praise your child when she does something well, not just when she looks good. Healthy Behavior Choices RISK REDUCTION ?? Help your child find fun, safe things to do. ?? Make sure your child knows how you feel about alcohol and drug use. ?? Consider a plan to make sure your child or his friends cannot get alcohol or prescription drugs in your home. ?? Talk about relationships, sex, and values. ?? Encourage your child not to have sex. ?? If you are uncomfortable talking about puberty or sexual pressures with your child, please ask me or others you trust for reliable information that can help you. ?? Use clear and consistent rules and discipline with your child. ?? Be a role model for healthy behavior choices. Feeling Happy EMOTIONAL WELL-BEING ?? Encourage your child to think through problems herself with your support. ?? Help your child figure out healthy ways to deal with stress. ?? Spend time with your child. ?? Know your child???s friends and their parents, where your child is, and what he is doing at all times. ?? Show your child how to use talk to share feelings and handle disputes. ?? If you are concerned that your child is sad, depressed, nervous, irritable, hopeless, or angry, talk with me. School and Friends SOCIAL AND ACADEMIC COMPETENCE ?? Check in with your child???s teacher about her grades on tests and attend ocxq-fo-fjndyl events and parent-teacher conferences if possible. ?? Talk with your child as she takes over responsibility for schoolwork. ?? Help your child with organizing time, if he needs it. ?? Encourage reading. ?? Help your child find activities she is really interested in, besides schoolwork. ?? Help your child find and try activities that help others. ?? Give your child the chance to make more of his own decisions as he grows older. Violence and Injuries VIOLENCE AND INJURY PREVENTION ?? Make sure everyone always wears a seat belt in the car. ?? Do not allow your child to ride ATVs. ?? Make sure your child knows how to get help if he is feeling unsafe. ?? Remove guns from your home. If you must keep a gun in your home, make sure it is unloaded and locked with ammunition locked in a separate place. ?? Help your child figure out nonviolent ways to handle anger or fear. Poison Help: Child safety seat inspection: 1-191-KEPJRPKHW; seatcheck.org Your Growing and Changing Body ??? Dodge your teeth twice a day and floss once a day. ??? Visit the dentist twice a year. ??? Wear your mouth guard when playing sports. ??? Eat 3 healthy meals a day. ??? Eating breakfast is very important. ??? Consider choosing water instead of soda. ??? Limit high-fat foods and drinks such as candy, chips, and soft drinks. ??? Try to eat healthy foods. ??? 5 fruits and vegetables a day ??? 3 cups of low-fat milk, yogurt, or cheese ??? Eat with your family often. ??? Aim for 1 hour of moderately vigorous physical activity every day. ??? Try to limit watching TV, playing video games, or playing on the computer to 2 hours a day (outside of homework time). ??? Be proud of yourself when you do something good. Healthy Behavior Choices ??? Find fun, safe things to do. ??? Talk to your parents about alcohol and drug use. ??? Support friends who choose not to use tobacco, alcohol, drugs, steroids, or diet pills. ??? Talk about relationships, sex, and values with your parents. ??? Talk about puberty and sexual pressures with someone you trust. ??? Follow your family???s rules. How You Are Feeling ??? Figure out healthy ways to deal with stress. ??? Spend time with your family. ??? Always talk through problems and never use violence. ??? Look for ways to help out at home. ??? It???s important for you to have accurate information about sexuality, your physical development, and your sexual feelings. Please consider asking me if you have any questions. School and Friends ??? Try your best to be responsible for your schoolwork. ??? If you need help organizing your time, ask your parents or teachers. ??? Read often. ??? Find activities you are really interested in, such as sports or theater. ??? Find activities that help others. ??? Spend time with your family and help at home. ??? Stay connected with your parents. Violence and Injuries ??? Always wear your seatbelt. ??? Do not ride ATVs. ??? Wear protective gear including helmets for playing sports, biking, skating, and skateboarding. ??? Make sure you know how to get help if you are feeling unsafe. ??? Never have a gun in the home. If necessary, store it unloaded and locked with the ammunition locked separately from the gun. ??? Figure out nonviolent ways to handle anger or fear. Fighting and carrying weapons can be dangerous. You can talk to me about how to avoid these situations. ??? Healthy dating relationships are built on respect, concern, and doing things both of you like to do. documented in this encounter Progress Notes * Florecita Pickard MD - 06/01/2018 2:00 PM EST Subjective: Patient ID: Ely Mahmood is a 13 y.o. female. HPI Ely Mahmood is a 13 y.o. here today for: Chief Complaint Patient presents with ??? Annual Exam Here with Mirna tyler. ??? Other No concerns. No ER visits. Accompanied by: grandmother Problem list assessed and updated. Additional Concerns/Interval History: -No menses or spotting since Depo provera at last visit -Headache at school all of a sudden yesterday Health Maintenance and Age Appropriate Review of Systems: Females: Menarche: 11 LMP: 04/18/18 Ely Mahmood completed the DartScreen (comprehensive health screener) today. The full list of questions are on file. The following area(s) were assessed: issues of screener-identified concernand further confidential discussion are noted below: DartScreen 03/29/2018 Nutrition Score - Sports Cardiac Score - Activities Score - School Score - Safety Score - Tobacco Score - Social Life Score - Abuse Score - Mental Health Score (PHQ2) - Mental Health Score (PHQ9) 9 (Mild Depression) Anxiety Score - Anxiety Score (GAD7) 17 (Severe Anxiety) Self Harm Score - Family Score - Strengths Score - Health Maintenance: per AAP Bright Future Guidelines: No menses since Depo shot. Will be visiting father in [place] this evening for his Cast[place]er visit. Recently had a benefit for grandfather who has recent cancer diagnosis (colon, invaded prostate). Has A-B-C's in school right now, wants to get her C's to B's. Wants to start volunteering. After school watches a lot of Netflix. Has counselor at school named Sho from [facility]) Sleeping well, sleeping in on weekends. Feels like she is sleeping better since the Depo Provera. Have puppy named Loretta. Currently not allowed to see boyfriend per his parents but they are still talking and he is a good support. Ely feels well supported and that she can deal with her anxiety and sadness right now. Social/Family History: Social History Social History Narrative 04/2017 Father in [place] Grandparents are , grandmother has guardianship for both Ely and her sister. 01/2018 6 months ago moved from [place] to [place]. Family History Updated [place] [address]. Vitals: 06/01/18 1351 BP: 102/60 Weight: 46.8 kg (103 lb 3.2 oz) Height: 149.2 cm (4' 10.75) Blood pressure percentiles are 39 % systolic and 40 % diastolic based on the January 2017 AAP Clinical Practice Guideline. Blood pressure percentiles are 39 % systolic and 40 % diastolic based on the January 2017 AAP Clinical Practice Guideline. Blood pressure percentile targets: 90: 118/76, 95: 123/80, 95 + 12 mmH/92. 33 %ile based on CDC (Girls, 2-20 Years) [id number] data based on Weight recorded on 06/01/2018. 3 %ile based on CDC (Girls, 2-20 Years) [id number]-[id number] data based on Stature recorded on 06/01/2018. Body mass index is 21.02 kg/m??. 67 %ile based on CDC (Girls, 2-20 Years) BMI-for-age based on bodymeasurements available as of 06/01/2018. Review of Systems Constitutional: Negative for appetite change and fever. HENT: Negative for trouble swallowing. Eyes: Negative for redness. Respiratory: Negative for cough. Cardiovascular: Negative for chest pain. Gastrointestinal: Negative for blood in stool, constipation, diarrhea and vomiting. Genitourinary: Negative for hematuria and vaginal bleeding. Skin: Negative for rash. Hematological: Does not bruise/bleed easily. No vision changes Objective: Physical Exam Constitutional: She is oriented to person, place, and time. She appears well- developed. No distress. HENT: Head: Normocephalic. Mouth/Throat: Oropharynx is clear and moist. No oropharyngeal exudate. Eyes: Conjunctivae are normal. Pupils are equal, round, and reactive to light. Right eye exhibits no discharge. Left eye exhibits no discharge. No scleral icterus. Cardiovascular: Normal rate, regular rhythm, normal heart sounds and intact distal pulses. Exam reveals no gallop and no friction rub. No murmur heard. Pulmonary/Chest: Effort normal and breath sounds normal. No respiratory distress. She has no wheezes. She has no rales. Abdominal: Soft. Bowel sounds are normal. She exhibits no distension. There is no tenderness. Musculoskeletal: Normal range of motion. Lymphadenopathy: She has no cervical adenopathy. Neurological: She is alert and oriented to person, place, and time. She exhibits normal muscle tone. Coordination normal. Skin: Skin is warm. No rash noted. She is not diaphoretic. No pallor. Psychiatric: She has a normal mood and affect. Assessment and Plan: Healthy adolescent with depression and anxiety, PHQ-9 done previously. Currently feels well supported and has a counselor at school. Will return for next Depo Provera. Additional concerns identified: No problem-specific Assessment & Plan notes found for this encounter. Growth Parameters: BMI =67 %ile based on CDC (Girls, 2-20 Years) BMI-for-age based on body measurements available as of 06/01/2018. Normal Immunizations: Immunization record reviewed: up to date Patient and family was counseled on benefits, risks and complications for all vaccines and components as listed in the immunization category of the patient record and patient/family was given VIS foreach vaccine component. Recommended screening: ?? GC/CT (urine based testing) for ALL15+ year olds and ALL sexually active adolescents. No orders of the defined types were placed in this encounter. Follow up: Return in one year for your next yearly physical. * Wendy Ewing MD - 06/01/2018 2:00 PM EST The case was discussed [...] Info) Description 08/08/2024 9:00 AM EST Appointment [address] [address] Umu Saucedo RN 08/15/2024 10:45 AM EST TH Visit (TeleHealth) Obstetrics [place] [address] Dara Kelley MD [facility] [address] OBSTETRICS [place] [address] 11/25/2024 Hospital En[place] [address] Dara Gonzalez MD [facility] OBSTETRICS [place] [address] 07/12/2025 1:40 PM EST Office Visit [place] [address] Bina Agrawal OD [facility] [place] [place] [address] documented as of this encounter Visit Diagnoses Diagnosis Encounter for routine child health examination without abnormal findings Routine infant or child health check documented in this encounter Care Teams Hair Salon Manager Relationship Specialty Start Date End Date Florecita Pickard MD PCP - General Pediatrics 11/25/16 10/04/19 documented as of this encounter
--- OUTSIDE RECORDS SUMMARY | 2024-07-29 00:27 | XMS_ITS | Encounter Summary ---
Author Organization [facility] Address [facility] [place] [address] Care Team Providers Care Community Mental Health Social Worker Name Role Phone Alondra Quach MD Primary Care Provider Jhoan hicks Encounter Details Date Type Department Care Team (Latest Contact Info) Description 07/18/2016 12:18 PM EST - 07/18/2016 11:59 PM EST Hospital Encounter XRay at [address] [place] [address] Severo Hill MD [facility] [place] [address] Scoliosis, unspecified scoliosis type, unspecified spinal region Discharge Disposition: Home Social History Tobacco Use [...] Info) Description 08/08/2024 9:00 AM EST Appointment [address] [address] Umu Saucedo RN 08/15/2024 10:45 AM EST TH Visit (TeleHealth) Obstetrics [place] [address] Dara Kelley MD [facility] [place]ST[place] [address] 11/25/2024 Hospital [place] [address] Dara Gonzalez MD [facility] [place] [address] 07/12/2025 1:40 PM EST Office [place] [address] Bina Agrawal OD [facility] [place] [address] documented as of this encounter Procedures Procedure Name Priority Date/Time Associated Diagnosis Comments XR SCOLIOSIS OR TOTAL SPINE 1 VIEW Routine 07/18/2016 12:32 PM EST Scoliosis, unspecified scoliosis type, unspecified spinal region documented in this encounter Results * XR Scoliosis or Total Spine 1 view (07/18/2016 12:32 PM EST) Anatomical Region Laterality Modality C-spine, T-spine, L-spine N/A Digita l Radiography Impressions 07/18/2016 1:49 PM EST No interval change, specifically in degree of dextroscoliosis in lower thoracic spine. Narrative 07/18/2016 1:49 PM EST EXAMINATION: XR SCOLIOSIS OR TOTAL SPINE 1 VIEW CLINICAL HISTORY: SCOLIOSIS TECHNIQUE: PA standing thoracolumbar spine COMPARISON: 04/05/2015 FINDINGS: There is no interval change, specifically in the degree of dextroscoliosis in the lower thoracic spine. Between the superior endplate of T8 and the inferior endplate of T12, the curvature measures 29 degrees (28 degrees previously). 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 Procedure Note Sundar Menendez MD - 07/18/2016 EXAMINATION: XR SCOLIOSIS OR TOTAL SPINE 1 VIEW CLINICAL HISTORY: SCOLIOSIS TECHNIQUE: PA standing thoracolumbar spine COMPARISON: 04/05/2015 FINDINGS: There is no interval change, specifically in the degree of dextroscoliosisin the lower thoracic spine. Between the superior endplate of T8 and theinferior endplate of T12, the curvature measures 29 degrees (28 degreespreviously). 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 IMPRESSION No interval change, specifically in degree of dextroscoliosis in lowerthoracic spine. Severo Hill MD IMG DX ORDERABLES documented in this encounter Visit Diagnoses Diagnosis Scoliosis, unspecified scoliosis type, unspecified spinal region documented in this encounter Care Teams Community Mental Health Social Worker Relationship Specialty Start Date End Date Alondra Quach MD PCP - General Pediatrics 08/17/15 11/24/16 documented as of this encounter
--- OUTSIDE RECORDS SUMMARY | 2024-07-29 00:27 | XMS_ITS | Encounter Summary ---
Author Organization [facility] Address [facility] [place] [address] Care Team Providers Care Tanker Service Attendant Name Role Phone Florecita Pickard MD Primary Care Provider Unav ailable Encounter Details Date Type Department Care Team (Late st Contact Info) Description 06/24/2017 Orders [place] [address] Eunice Fountain ANIMAL RESEARCHER [facility] [place] [address] Hemivertebra Social History Tobacco Use Types Packs/Day Years [...] Description 08/08/2024 9:00 AM EST Appointment [address] [address] Umu Saucedo RN 08/15/2024 10:45 AM EST TH Visit (TeleHealth) Obstetrics and Gynecology at [place] [phone] Dara Kelley MD [facility] OBSTETRICS [place] [address] 11/25/2024 [place] [address] Dara Gonzalez MD [facility] OBSTETRICS [place] [address] 07/12/2025 1:40 PM EST Office Visit Ophthalmology at [place] [phone] Bina Agrawal OD [facility] [place] [address] documented as of this encounter Results * [...] vertebral anomalies with unchanged scoliosis. Eunice Fountain APRN IMG DX ORDERAB LES documented in this encounter Visit Diagnoses Diagnosis Hemivertebra Hemivertebra documented in this encounter Care Teams Tanker Service Attendant Relationship Specialty Start Date End Date Florecita Pickard MD PCP - General Pediatrics 11/25/16 10/04/19 documented as of this encounter
--- OUTSIDE RECORDS SUMMARY | 2024-07-29 00:27 | XMS_ITS | Encounter Summary ---
Author Organization [facility] Address [facility] [place] [address] Care Team Providers Care Bindery Leadperson Name Role Phone Florecita Pickard MD Primary Care Provider Unav ailable Reason for Visit * Reason Onset Date Comments Questions 02/11/2018 Encounter Details Date Type Department Care Team (Late st Contact Info) Description 02/11/2018 Telephone Pediatrics at [address] [phone] Archana Smith Questions Social History Tobacco Use Types Packs/Day Years [...] Telephone Encounter - Renetta Yusuf RN - 02/11/2018 3:07 PM EDT Guardian/Grandmother:John. Confirmed patient's name as Ely Mahmood and date of as 2005. Reason for call: Patient's grandmother/guardian, John, calling because pt has been having problems with falling asleep and staying asleep recently. She states it is causing pt problems being ableto focus during the day, especially now that school is starting again. Appt was scheduled for pt with PCP on 02/16, but grandmother is wondering if a nurse could call her with any suggestions to help in the meantime. She does state Melatonin doesn't work for pt. Please call. Assessment:Jessica states during the summer the pt was going to bed at 2-3 am,she spent the night timewatching screens,then pt would sleep all day. School has started and pt is falling asleep at school. She prefers junk fun. Doesn't exercise daily. This writer editor advised Jessica of some Quick Sleep Tips Follow these tips to establish healthy sleep habits: ??? Keep a consistent sleep schedule. Get up at the same time every day, even on weekends or duringvacations. ??? Set a bedtime that is early enough for you to get at least 7 hours of sleep. ??? Don???t go to bed unless you are sleepy. ??? If you don???t fall asleep after 20 minutes, get out of bed. ??? Establish a relaxing bedtime routine. ??? Use your bed only for sleep and sex. ??? Make your bedroom quiet and relaxing. Keep the room at a comfortable, cool temperature. ??? Limit exposure to bright light in the evenings. ??? Turn off electronic devices at least 30 minutes before bedtime. ??? Don???t eat a large meal before bedtime. If you are hungry at night, eat a light, healthy snack. ??? Exercise regularly and maintain a healthy diet. ??? Avoid consuming caffeine in the late afternoon or evening. Reduce your fluid intake before bedtime. Jessica will try to keep a sleep hygiene diary and bring it to the appointment. On 02/16/18. Wait and watch. Call with any questions,concerns or if pt seems worse. grandmother agrees with plan. Patient Active Problem List Diagnosis Code ??? [...] with unrestricted hearing of right ear H90.72 No Known Allergies * Telephone Encounter - Archana Smith - 02/11/2018 2:18 PM EDT Message: Patient's grandmother/guardian, John, calling because pt has been having problems with falling asleep and staying asleep recently. She states it is causing pt problems being able to focusduring the day, especially now that school is starting again. Appt was scheduled for pt with PCP on02/16, but grandmother is wondering if a nurse could call her with any suggestions to help in the meantime. She does state Melatonin doesn't work for pt. Please call. Caller and relationship (if other than patient-full name): Pt Best time to call back: any Ok to leave a message: [yes] Ok to send my- message: [no] Offered Appointment: scheduled for 02/16 with PCP MA/Nurse contacted via: Message: x Call: Pager: documented in this encounter Plan of Treatment Upcoming Encounters Date Type Department Care Team (Late st Contact Info) Description 08/08/2024 9:00 AM EST Appointment [address] [address] Umu Saucedo, RN 08/15/2024 10:45 AM EST TH Visit (TeleHealth) Obstetrics [place] [address] Dara Kelley MD [facility] OBSTETRICS [place] [address] 11/25/2024 [place] [address] Dara Gonzalez MD [facility] OBSTETRICS [place] [address] 07/12/2025 1:40 PM EST Office [place] [address] Bina Agrawal OD [facility] [place] [address] documented as of this encounter Visit Diagnoses Not on filedocumented in this encounter Care Teams Bindery Leadperson Relationship Specialty Start Date End Date Florecita Pickard MD PCP - General Pediatrics 11/25/16 10/04/19 documented as of this encounter
--- OUTSIDE RECORDS SUMMARY | 2024-07-29 00:27 | XMS_ITS | Encounter Summary ---
Author Organization [facility] Address [facility] [address] Care Team Providers Care Energy Technician Name Role Phone Florecita Pickard MD Primary Care Provider Unav ailable Reason for Visit * Reason Onset Date Comments Questions 06/24/2018 Encounter Details Date Type Department Care Team (Late st Contact Info) Description 06/24/2018 Telephone Pediatrics at [address] [phone] José Miguel Christine Questions Social History Tobacco Use Types Packs/Day Years Used Date Smoking Tobacco: Never Smokeless Tobacco: Never Comments:no one smokes at [facility] Alcohol Use Standard Drinks/Week [...] Telephone Encounter - Florecita Pickard MD - 07/01/2018 7:10 PM EST Grandmother calling reporting that Ely had her period, and passed a blood clot with mucous glob.Her stomach has been bothering her off and on, kept her home from school today. Trying to give her lots of water because she had headaches previously which improved with drinking water as advised by another physician. DIscussed that a period while on hormonal contraception is not unexpected and that this may change. Advised to keep journal of abdominal pain to try and elicit relation to going to school, or food, or anxiety and stress. Advised to call and set up an appointment to follow up and explore abdominal pain. If pain is worsening, waking at night, or continuing to cause her to miss school, advised to bring her in to be seen by another provider and I will be sure to follow up with that provider. Florecita Pickard MD 07/01/2018 * Telephone Encounter - Emmy Ackerman - 06/29/2018 12:11 PM EST Patient's Grandmother returning call, Number written wrong in previous message, Please call back [phone] * Telephone Encounter - Florecita Pickard MD - 06/24/2018 4:47 PM EST Tried calling back but number is not in service. * Telephone Encounter - José Miguel Christine - 06/24/2018 2:47 PM EST Message: Mirna is calling because she would like to speak with the patients PCP. Please give Mirna a call back to discuss. Mirna does not want to speak with a nurse. FYI Caller and relationship (if other than patient-full name): Mirna Best time to call back: Any Ok to leave a message: [y] Ok to send my- message: [n] Offered Appointment: n DARLENE/Nurse contacted via: Message: x Call: Pager: documented in this encounter Plan of Treatment Upcoming Encounters Date Type Department Care Team (Late st Contact Info) Description 08/08/2024 9:00 AM EST Appointment [facility] [address] [place] [address] Umu Saucedo, RN 08/15/2024 10:45 AM EST TH Visit (TeleHealth) Obstetrics and Gynecology at [place] [phone] Dara Kelley MD [facility] [place] [address] 11/25/2024 [place] [phone] Dara Gonzalez MD [facility] [place] [address] 07/12/2025 1:40 PM EST Office Visit Ophthalmology at [place] [phone] Bina Agrawal OD [facility] [place] [address] documented as of this encounter Visit Diagnoses Not on filedocumented in this encounter Care Teams Energy Technician Relationship Specialty Start Date End Date Florecita Pickard MD PCP - General Pediatrics 11/25/16 10/04/19 documented as of this encounter
--- OUTSIDE RECORDS SUMMARY | 2024-07-29 00:27 | XMS_ITS | Encounter Summary ---
Author Organization [facility] Address [facility] [place] [address] Care Team Providers Care Head Up Operator Name Role Phone Florecita Pickard MD Primary Care Provider Unav ailable Reason for Visit * Reason Comments GI Problem Pain, stopped for a while, now its back Other Here with Juanito Lopez Encounter Details Date Type Department Care Team (Late st Contact Info) Description 08/17/2018 2:30 PM EST Office Visit Pediatrics at [address] [phone] Florecita Pickard MD Chronic abdominal pain Social History Tobacco Use Types Packs/Day Years Used Date Smoking Tobacco: Never Smokeless Tobacco: Never Comments:no one smokes at [facility] Alcohol Use Standard Drinks/Week Comments No [...] Sign Reading Time Taken Comments Blood Pressure 110/65 08/17/2018 2:55 PM EST Pulse 82 08/17/2018 2:55 PM EST Temperature 36.5 ??C (97.7 ??F) 08/17/2018 2:55 PM ES T Respiratory Rate - - Oxygen Saturation - - Inhaled Oxygen Concentration - - Weight 47.5 kg (104 lb 11.2 oz) 08/17/2018 2:55 PM EST Height - - Body Mass Index - - documented in this encounter Progress Notes * Florecita Pickard MD - 08/17/2018 2:30 PM EST Assessment: Ely Mahmood is a 13 y.o. with many social stressors including her grandfather currently being treated for cancer, her father being incarcerated, defending her sister from bullies at school, with acute on chronic onset of abdominal pain, which had resolved until school vacation ended about 2 weeks ago. Given the acute onset, it is possible that she has lymphadenitis, there may be a component of GERD as Tums offered partial relief. Her presentation is not consistent with gastroenteritis or other acute intra-abdominal inflammation, and her test was negative. However, Ely had a very flat and restricted affect today, with multiple stressors, and previous visit with severe anxiety and mild depression. Her grandmother notes that the pain is worse on school, especially Mondays. While functional abdominal pain is a differential diagnosis, I am inclined towards anxiety as an exacerbator if not the etiology of her pain. During today's visit Ely, her grandmother, and I discussed the possibility of screening for depression and anxiety in one month's time (given that today her grandfather is currently in the operatingroom) in order to talk about if adding a medication in addition to her counseling may be helpful. Plan: -Return for follow-up in 1 month, at this time, evaluate pattern of abdominal pain, mental health (depression and anxiety screener), consider CBC regarding fatigue, for possible iron deficiency -Tums x 2 weeks twice daily for GERD -Return sooner if worsening Chief Complaint: Chief Complaint Patient presents with ??? GI Problem Pain, stopped for a while, now its back ??? Other Here with Gram, Faylene History of Present Illness: Has had ongoing issues with abdominal pain in the past which resolved for several months. It has come back over the last 2 weeks ever since school vacation is over. She has had the pain for 3 out of 4 days, including worse on the day she visited her dad in detention. The location is too hard to pinpoint, the onset is a gradual buildup which progresses to worse pain. She describes the pain as feeling like she has to throw up and it is often associated with nausea. There was one instance of vomiting. Time of day it is worst is in the morning. The pain has no relieving factors, sometimes Tums help a little bit. The pain is worsened by eating sometimes, no specific food. Duration of the pain will be a few hours up to two days. Her grandmother notes that the pain is worse especially on Mondays, and seems to mostly not be present on the weekend. Kept pain journal, pain jotted down during school hours mostly in the morning. Often skips breakfast, sometime will get yogurt at school. Has sandwich for lunch, will eat what Grandenriqueta makes for dinner. No dysuria, no blood in urine. Describes stool as Maren[place] 3-4, sometimes pain with defecation. Stools daily. Not currently sexually active since her first time (before Depo provera). Has not been allowed to spend time with her boyfriend because of his parents. They have been together for three years. Her grandfather is currently in surgery for his colorectal cancer and she is nervous for him. She has a tendency to keep her emotions under wraps and Ely cried at school out of nowehere the other day. She sees her counselor/therapist at school regularly. PMH: Patient Active Problem List Diagnosis Code [...] vitals taken for this visit. PHYSICAL EXAM: Abdomen: abdomen is soft and non-tender, non-distended, no hepatosplenomegaly, new umbilical piercing site clean, dry, and intact. Normoactive bowel sounds. Psych: flat, restricted affect, slow to make eye contact at start of visit and improved by the end of the visit, limited insight Florecita Pickard MD * Wendy Ewing MD - 08/17/2018 2:30 PM EST The case was discussed at [...] Info) Description 08/08/2024 9:00 AM EST Appointment [address] [phone] Umu Saucedo RN 08/15/2024 10:45 AM EST TH Visit (TeleHealth) Obstetrics and Gynecology at [place] [phone] Dara Kelley MD [facility] OBSTETRICS [place] [address] 11/25/2024 Hospital Encounter Birthing [place] [phone] Dara Gonzalez MD [facility] [place] [address] 07/12/2025 1:40 PM EST Office Visit Ophthalmology at [address] Bina Agrawal OD [facility] [place] [address] documented as of this encounter Procedures Procedure Name Priority Date/Time Associated Diagnosis Comments POCT URINE Routine 08/17/2018 3:46 PM EST Chronic abdominal pain documented in this encounter Results * POCT urine (08/17/2018 3:46 PM EST) POC Urine HCG Negative Negative - Negative POC Control Internal Controls Acceptable 08/17/2018 3:46 PM EST Wendy Ewing MD POINT OF CARE TEST ORDERABLES documented in this encounter Visit Diagnoses Diagnosis Chronic abdominal pain Abdominal pain, unspecified site documented in this encounter Care Teams Head Up Operator Relationship Specialty Start Date End Date Florecita Pickard MD PCP - General Pediatrics 11/25/16 10/04/19 documented as of this encounter
--- OUTSIDE RECORDS SUMMARY | 2024-07-29 00:27 | XMS_ITS | Encounter Summary ---
Author Organization [facility] Address [facility] [place] [address] Care Team Providers Care Panel Machine Tender Name Role Phone Florecita Pickard MD Primary Care Provider Unav ailable Encounter Details Date Type Department Care Team (Late st Contact Info) Description 06/17/2018 Telephone Pediatrics at [address] [phone] Renetta Yusuf, RN Social History Tobacco Use Types Packs/Day Years Used Date Smoking Tobacco: Never Smokeless Tobacco: Never Comments:no one smokes at [facility] Alcohol Use Standard Drinks/Week Comments No 0 (1 standard drink = 0.6 oz pur e alcohol) Sex and Gender Information Value Date Recorded Sex Assigned at Female 07/24/2023 9:35 AM EST Gender Identity Female 07/24/2023 9:35 AM EST Sexual Orientation Straight 07/24/2023 9: 35 AM EST documented as of this encounter Miscellaneous Notes * Telephone Encounter - Renetta Yusuf RN - 06/17/2018 12:18 PM EST grandmother: [phone] Confirmed patient's name as Ely Mahmood and date of as 2005. Reason for call: Headaches. Assessment: Grandmother states she is having daily headaches and abdominal pain since 06/10/18. Pain scale:5 for her headaches. Pt takes Tylenol for headaches,it helps a little but doesn't take the headache completely away. Gram denies fever,illness or head injury. Pt is eating and drinking well. Voiding normally. Activity level is decreased. Pt is sleeping normally for her. Appointment made for today. Call with any questions or concerns. grandmother agrees with plan. Patient Active Problem [...] of right ear H90.72 No Known Allergies documented in this encounter Plan of Treatment Upcoming Encounters Date Type Department Care Team (Late st Contact Info) Description 08/08/2024 9:00 AM EST Appointment [address] [phone] Umu Saucedo, RN 08/15/2024 10:45 AM EST TH Visit (TeleHealth) Obstetrics [place] [address] Dara Kelley MD [facility] [place] [address] 11/25/2024 [place] [phone] Dara Gonzalez MD [facility] [place]ST[place] [address] 07/12/2025 1:40 PM EST Office [place] [address] Bina Agrawal OD [facility] O[facility]OLOG[facility] [place] [address] documented as of this encounter Visit Diagnoses Not on filedocumented in this encounter Care Teams Panel Machine Tender Relationship Specialty Start Date End Date Florecita Pickard MD PCP - General Pediatrics 11/25/16 10/04/19 documented as of this encounter
--- OUTSIDE RECORDS SUMMARY | 2024-07-29 00:27 | XMS_ITS | Encounter Summary ---
Author Organization [facility] Address [facility] [place] [address] Care Team Providers Care Online Merchant Name Role Phone Florecita Pickard MD Primary Care Provider Unav ailable Reason for Visit * Reason Onset Date Comments Questions 04/06/2018 Encounter Details Date Type Department Care Team (Late st Contact Info) Description 04/06/2018 Telephone Pediatrics at [address] [phone] Lolis Elizondo Questions Social History Tobacco Use Types Packs/Day Years Used Date Smoking Tobacco: Never Smokeless Tobacco: Never Comments:smoking is outside Alcohol Use Standard Drinks/Week Comments No 0 (1 standard drink = 0.6 oz pur e alcohol) Sex and Gender Information Value Date Recorded Sex Assigned at Female 07/24/2023 9:35 AM EST Gender Identity Female 07/24/2023 9:35 AM EST Sexual Orientation Straight 07/24/2023 9: 35 AM EST documented as of this encounter Miscellaneous Notes * Telephone Encounter - Shelly Guzman LPN - 04/06/2018 12:36 PM EDT After confirming Last name and , I spoke ton grandmother Mirna She states that pt started the birthcontrol pill 04/04 and she has been nauseated and vomited x1 each day. She states that she takes pill at night. I encouraged her to take pill with food and maybe earlier in evening with food. That she should be able to go to school. Pt needs a letter stating that she missed school do the Start of a new medication which has caused her to feel ill. I advised that I would have to check with provider and would contact her when sent. I spoke to chief quality officer and advised to try these suggestions and if not better by Thursday to contact us and we could switch to a patch called Olga Vrea . I encouraged her to send pt to school with saltine crackers Or some toast . She states understanding and agreeswith plan * Telephone Encounter - Lolis Elizondo - 04/06/2018 11:28 AM EDT Message: pt's grandmother is calling to speak with a nurse. She states pt started taking control pill on Wednesday 04/04 and has been sick to her stomach since. Please call her back to discuss Caller and relationship (if other than patient-full name): grand Mirnamother Best time to call back: any Ok to leave a message: [yes] Ok to send my- message: [] Offered Appointment: no MA/Nurse contacted via: Message: yes Call: no Pager: no documented in this encounter Plan of Treatment Upcoming Encounters Date Type Department Care Team (Late st Contact Info) Description 08/08/2024 9:00 AM EST Appointment [facility] [address] [place] [phone] Umu Saucedo, RN 08/15/2024 10:45 AM EST Visit (TeleHealth) [place]stetrics [place] [address] Dara Kelley MD [facility] OBST[place] [address] 11/25/2024 Hospital Encounter [place] [address] Dara Gonzalez MD [facility] OBSTETRICS [place] [address] 07/12/2025 1:40 PM EST Office [place] [phone] Bina Agrawal OD [facility] [place] [address] documented as of this encounter Visit Diagnoses Not on filedocumented in this encounter Care Teams Online Merchant Relationship Specialty Start Date End Date Florecita Pickard MD PCP - General Pediatrics 11/25/16 10/04/19 documented as of this encounter
--- OUTSIDE RECORDS SUMMARY | 2024-07-29 00:27 | XMS_ITS | Encounter Summary ---
Author Organization [facility] Address [facility] [place] [address] Care Team Providers Care Clinical Specialist Vascular Name Role Phone Florecita Pickard MD Primary Care Provider Unav ailable Reason for Visit * Reason Onset Date Comments Other 09/06/2018 Encounter Details Date Type Department Care Team (Late st Contact Info) Description 09/06/2018 Telephone Pediatrics at [address] [phone] Betsy Perez Other Social History Tobacco Use [...] Telephone Encounter - Pam Cho RN - 09/06/2018 1:31 PM EDT Grandmother, Carter, confirmed name and for Ely. Patient was seen by Dr. Pickard on 08/17/18 for chronic abdominal pain, and per gram's report, nothing has improved. Ely' stomach pains are continuing, despite taking TUMS twice per day as advised by Dr. Pickard last time. Jessica denies Ely having constipation or diarrhea, and is reportedly eating well. Carter states that Ely is now failing all her subjects at school because she's missed so many days- she recently missed an entire week of school. Jessica states that when Ely is home from school, she lays down with her stomach pains, and ends up sleeping most of the day away. Appointment recommended, and jessica in agreement. Call transferred to the tape cutter to book appointment for tomorrow. * Telephone Encounter - Betsy Fuentes - 09/06/2018 11:49 AM EDT Message: Carter, patient's grandmother is calling stating patient is still having trouble with herstomach, patient had called her grandmother from school complaining that she's having the stomach issues, patient gets teary eyed when getting these stomach pains, carter would like to specifically discuss this with Florecita Pickard MD, please call to discuss. Ask caller their first and last name and relationship to the patient: grand Cartermother Best time to call back: any Ok to leave a message: [yes] Ok to send my- message: [no] Offered Appointment: no MA/Nurse contacted via: Message: yes Call: no Pager: no documented in this encounter Plan of Treatment Upcoming Encounters Date Type Department Care Team (Late st Contact Info) Description 08/08/2024 9:00 AM EST Appointment [facility] [address] [phone] Umu Saucedo RN 08/15/2024 10:45 AM EST TH Visit (TeleHealth) Obstetrics [place] [address] Dara Kelley MD [facility] OBSTETRICS [place] [address] 11/25/2024 Hospital Encounter [place] [phone] Dara Gonzalez MD [facility] DR OBSTETRICS [place] [address] 07/12/2025 1:40 PM EST Office Visit Ophthalmology at [place] [phone] Bina Agrawal OD [facility] [address] documented as of this encounter Visit Diagnoses Not on filedocumented in this encounter Care Teams Clinical Specialist Vascular Relationship Specialty Start Date End Date Florecita Pickard MD PCP - General Pediatrics 11/25/16 10/04/19 documented as of this encounter
--- OUTSIDE RECORDS SUMMARY | 2024-07-29 00:27 | XMS_ITS | Encounter Summary ---
Author Organization [facility] Address [facility] [place] [address] Care Team Providers Care Mri Ct Tech Name Role Phone Florecita Pickard MD Primary Care Provider Unav ailable Reason for Visit * Reason Comments Follow-up No new conerns. H/O left persistent HL. Encounter Details Date Type Department Care Team (Latest Contact Info) Description 05/14/2018 4:00 PM EST Office Visit [place] [address] [facility] [place] [address] Tympanosclerosis, unspecified laterality; H/O tympanomastoidectomy Social History Tobacco Use Types Packs/Day Years Used Date Smoking Tobacco: Never Smokeless Tobacco: Never Comments:no one smokes at [facility] Alcohol Use Standard Drinks/Week Comments No [...] - Inhaled Oxygen Concentration - - Weight 47.1 kg (103 lb 14.4 oz) 05/14/2018 3:52 PM EST Height 149.9 cm (4' 11) 05/14/2018 3:52 PM EST Body Mass Index 20.99 05/14/2018 3:52 PM EST Body Mass Index Percentile 67.04% 05/14/2018 3:5 2 PM EST Growth Chart: [facility] (Girls, 2- 20 Years) documented in this encounter Progress Notes * Chino Matta MD - 05/14/2018 4:00 PM EST Subjective: Patient ID: Ely Mahmood is a 13 y.o. female. 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 The following audiological studies were reviewed by me: NL AU with slight asymmetry (L>R) Assessment and Plan: Patient continues to do well. Physical exam is without findings of concern today. RTC 2 yrs with AE. Chino Matta MD [phone] documented in this encounter Plan of Treatment Upcoming Encounters Date Type Department Care Team (Late st Contact Info) Description 08/08/2024 9:00 AM EST Appointment [facility] [address] [phone] Umu Saucedo, RN 08/15/2024 10:45 AM EST TH Visit (TeleHealth) Obstetrics and Gynecology at [place] [phone] [facility] OBSTETRICS [place] [address] 11/25/2024 Hospital Encounter [place] [address] [facility] OBSTETRICS [place] [address] 07/12/2025 1:40 PM EST Office Visit Ophthalmology at [place] [phone] [facility] [place] [address] documented as of this encounter Visit Diagnoses Diagnosis Tympanosclerosis, unspecified laterality H/O tympanomastoidectomy Other postprocedural status documented in this encounter Care Teams Mri Ct Tech Relationship Specialty Start Date End Date Florecita Pickard MD PCP - General Pediatrics 11/25/16 10/04/19 documented as of this encounter
--- OUTSIDE RECORDS SUMMARY | 2024-07-29 00:27 | XMS_ITS | Encounter Summary ---
Author Organization Pending [facility] Address [facility] [place] [address] Care Team Providers Care Mechanical Service Specialist Name Role Phone Florecita Pickard MD Primary Care Provider Unav ailable Reason for Visit * Reason Comments Contraception Depo Injection - wit h Grandmother and sister Encounter Details Date Type Department Care Team (Latest Contact Info) Description 08/04/2018 2:20 PM EST Clinical Support Pediatrics at [address] [phone] Ethel Nuñez LPN Encounter for contraceptive management, unspecified type Social [...] Sign Reading Time Taken Comments Blood Pressure 121/69 08/04/2018 1:36 PM EST Pulse 76 08/04/2018 1:36 PM EST Temperature - - Respiratory Rate - - Oxygen Saturation - - Inhaled Oxygen Concentration - - Weight 47.3 kg (104 lb 3.2 oz) 08/04/2018 1:36 P M EST Height - - Body Mass Index - - documented in this encounter Patient Instructions * Patient Instructions* Ethel Nuñez LPN - 08/04/2018 2:20 PM EST To return October 20 - November 03, 2018 for next injection. documented in this encounter Progress Notes * Ethel Nuñez LPN - 08/04/2018 2:20 PM EST On time for Depo Injection: Depo injection given - site abd. Tissue. Right side. Slight stomach upset. Otherwise negative for problems. BP 121/69 Pulse 76 Wt 47.3 kg (104 lb 3.2 oz) Return October 20 - November 03, 2018 for next injection. documented in this encounter Plan of Treatment Upcoming Encounters Date Type Department Care Team (Late st Contact Info) Description 08/08/2024 9:00 AM EST Appointment [address] [phone] Umu Saucedo, RN 08/15/2024 10:45 AM EST TH Visit (TeleHealth) Obstetrics [place] [address] Draa Kelley MD [facility] OBSTETRICS [place] [address] 11/25/2024 [place] [address] Dara Gonzalez MD [facility] OBSTETRICS [place] [address] 07/12/2025 1:40 PM EST Office Visit [place] [phone] Bina Agrawal OD [facility] [place] [address] documented as of this encounter Visit Diagnoses Diagnosis Encounter for contraceptive management, unspecified type documented in this encounter Administered Medications Inactive Administered Medications - up to 3 most recent administrations Medication Order MAR Action Action Date Dose Rate Site medroxyPROGESTERone (DEPO-SUBQ PROVERA) injection 104 mg 104 mg, Subcutaneous, ONCE, 1 dose, On Thu08/04/18 at 1400, Routine, Is this medication being ordered for contraception? This question is required for billing. Yes Given 08/04/2018 1:42 PM EST 104 mg Abdominal Tissue documented in this encounter Care Teams Mechanical Service Specialist Relationship Specialty Start Date End Date Florecita Pickard MD PCP - General Pediatrics 11/25/16 10/04/19 documented as of this encounter
--- OUTSIDE RECORDS SUMMARY | 2024-07-29 00:27 | XMS_ITS | Encounter Summary ---
Author Organization [facility] Address [facility] [place] [address] Care Team Providers Care School Bus Monitor Name Role Phone Alondra Quach MD Primary Care Provider Jhoan hicks Reason for Visit * Reason Comments Blurred Vision Encounter Details Date Type Department Care Team (Late st Contact Info) Description 10/07/2016 10:40 AM EDT Office [place] [address] Bina Agrawal, JONELLE [facility] [place] [address] Dry eyes, bilateral; Emmetropia Social History Tobacco [...] * Patient Instructions* Bina Agrawal, OD - 10/07/2016 10:40 AM EDT For dry eye, use AM and [...] Progress Notes * Bina Agrawal, OD - 10/07/2016 10:40 AM EDT Encounter Diagnoses Name Primary? Dry eyes, bilateral ??? Emmetropia Ely Mahmood is a 11 y.o. with the following ophthalmic problems: Assessment and Plan: Dilated ocular health unremarkable - Monitor at [facility] Dry Eye OU contributing to intermittent blur. - Ed that intermittent blurry [...] Info) Description 08/08/2024 9:00 AM EST Appointment [facility] [address] [phone] Umu Saucedo RN 08/15/2024 10:45 AM EST TH Visit (TeleHealth) Obstetrics [place] [address] Dara Kelley MD [facility] OBSTETRICS [place] [address] 11/25/2024 Hospital Encounter [place] [address] Dara Gonzalez MD [facility] OBSTETRICS [place] [address] 07/12/2025 1:40 PM EST Office [place] [address] Bina Agrawal OD [facility] [place] [address] documented as of this encounter Visit Diagnoses Diagnosis Dry eyes, bilateral Tear film insufficiency, unspecified Emmetropia Screening for other eye conditions documented in this encounter Care Teams School Bus Monitor Relationship Specialty Start Date End Date Alondra Quach MD PCP - General Pediatrics 08/17/15 11/24/16 documented as of this encounter
--- OUTSIDE RECORDS SUMMARY | 2024-07-29 00:27 | XMS_ITS | Encounter Summary ---
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 Chino Matta in Otolaryngology. Please refer to the audiogram under Procedures forfindings, impressions, and recommendations. documented in this encounter Plan of Treatment Upcoming Encounters Date Type Department Care Team (Late st Contact Info) Description 08/08/2024 9:00 AM EST Appointment [address] [phone] Umu Saucedo RN 08/15/2024 10:45 AM EST TH Visit (TeleHealth) Obstetrics [place] [phone] Dara Kelley MD [facility] OBSTETRICS [place] [address] 11/25/2024 Hospital [place] [phone] Dara Gonzalez MD [facility] OBSTETRICS [place] [address] 07/12/2025 1:40 PM EST Office [place] [address] Bina Agrawal OD [facility] [place] [address] documented as of this encounter Procedures Procedure Name Priority Date/Time Associated Diagnosis Comments COMPREHENSIVE HEARING TEST Routine 03/18/2017 1:07 PM EDT documented in this encounter Results * Comprehensive hearing test (03/18/2017 1:07 PM EDT) 03/18/2017 1:07 PM EDT Narrative [facility] [facility] - 03/18/2017 1:07 PM EDT 12 yo female seen in conjunction with Dr. Chino Matta in Otolaryngology. History of left persistent conductive hearing loss for which she used a hearing aid until fall 2014 when hearing was within the normal range. Past history of mastoiditis; PE tubes. 7th grader; feels she is doing well. Today hearing within normal limits left worse than right with very good word recognition bilaterally Left bone line appears mixed. Monitor as needed per Dr. Matta. Procedure Note Unknown - 03/18/2017 12 yo female seen in conjunction with Dr. Chino Matta inOtolaryngology. History of left persistent conductive hearing loss for which she used a hearing aid untilfall 2014 when hearing was within the normal range. Past history of mastoiditis; PEtubes. 7th grader; feels she is doing well. Today hearing within normal limits left worse than right with very goodword recognition bilaterally Left bone line appears mixed. Monitor as needed per . 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
--- OUTSIDE RECORDS SUMMARY | 2024-07-29 00:27 | XMS_ITS | Encounter Summary ---
Author Organization [facility] Address [facility] [place] [address] Care Team Providers Care Broadcast Operations Technician Name Role Phone Horacio Joshua MD Primary Care Provider [phone] Encounter Details Date Type Department Care Team (Late st Contact Info) Description 05/04/2015 External Results [place] [address] Demetrice Macdonald AUD [facility] [place] [address] Social History Tobacco Use Types Packs/Day Years [...] Description 08/08/2024 9:00 AM EST Appointment [address] [phone] Umu Saucedo RN 08/15/2024 10:45 AM EST TH Visit (TeleHealth) Obstetrics and Gynecology at [place] [phone] Dara Kelley MD [facility] OBSTETRICS [place] [address] 11/25/2024 Hospital Encounter [place]thing [place] [phone] Dara Gonzalez MD [facility] OBSTETRICS [place] [address] 07/12/2025 1:40 PM EST Office Visit Ophthalmology at [place] [phone] Bina Agrawal OD [facility] [place] [address] documented as of this encounter Procedures Procedure Name Priority Date/Time Associated Diagnosis Comments AUDIOLOGY SCAN Routine 05/03/2015 documented in this encounter Results * Scan Doc: Audiology (05/03/2015) Demetrice Macdonald AUD MEDIA MGR SCAN EXT ORDR/RSLT documented in this encounter Visit Diagnoses Not on filedocumented in this encounter Care Teams Broadcast Operations Technician Relationship Specialty Start Date End Date Horacio Joshua MD PCP - General 05/07/10 08/16/15 documented as of this encounter
--- OUTSIDE RECORDS SUMMARY | 2024-07-29 00:27 | XMS_ITS | Encounter Summary ---
Author Organization [facility] [place] [address] Care Team Providers Care Steward/Stewardess Dining Room Name Role Phone Horacio Joshua MD Primary Care Provider [phone] Reason for Visit * Reason Onset Date Comments Medication Problem 05/29/2015 Encounter Details Date Type Department Care Team (Late st Contact Info) Description 05/29/2015 Refill Pediatrics at [address] [phone] Coltete Turk, RN Social History Tobacco Use Types Packs/Day [...] Miscellaneous Notes * Telephone Encounter - Colette Turk RN - 05/29/2015 12:23 PM EST [place] [phone] calling for clarification of where the clindamycin-benzoyl peroxide gel will be applied for insurance purposes. Provider's note is not yet complete. Will review with provider and return call to pharmacy with clarification information. Discussed with provider Dr. Alondra Quach and she would like the clindamycin-benzoyl peroxide gel applied to affected areas of the face please. Pharmacy notified. documented in this encounter Plan of Treatment Upcoming Encounters Date Type Department Care Team (Late st Contact Info) Description 08/08/2024 9:00 AM EST Appointment [address] [phone] Umu Saucedo RN 08/15/2024 10:45 AM EST TH Visit (TeleHealth) Obstetrics and Gynecology at [place] [phone] Dara Kelley MD [facility] OBSTETRICS [place] [address] 11/25/2024 [place] [address] Dara Gonzalez MD [facility] OBSTETRICS [place] [address] 07/12/2025 1:40 PM EST Office Visit Ophthalmology at [address] Bina Agrawal OD [facility] [place] [address] documented as of this encounter Visit Diagnoses Not on filedocumented in this encounter Care Teams Steward/Stewardess Dining Room Relationship Specialty Start Date End Date Horacio Joshua MD PCP - General 05/07/10 08/16/15 documented as of this encounter
--- OUTSIDE RECORDS SUMMARY | 2024-07-29 00:27 | XMS_ITS | Encounter Summary ---
Author Organization [facility] Address [facility] [place] [address] Care Team Providers Care Recreation Aide Name Role Phone Floreicta Pickard MD Primary Care Provider Unav ailable Reason for Visit * Reason Comments Follow-up Here with Sabiha payne. Pt states that shes sleeping a little better but still not great Encounter Details Date Type Department Care Team (Late st Contact Info) Description 03/29/2018 2:00 PM EDT Office Visit Pediatrics at [address] [phone] Tammy Llanos MD [facility] [place] [address] Encounter for contraceptive management, unspecified type Social [...] Sign Reading Time Taken Comments Blood Pressure 120/70 03/29/2018 1:57 PM EDT Pulse 84 03/29/2018 1:57 PM EDT Temperature - - Respiratory Rate - - Oxygen Saturation - - Inhaled Oxygen Concentration - - Weight 47.5 kg (104 lb 11.5 oz) 03/29/2018 1:57 PM EDT Height - - Body Mass Index - - documented in this encounter Patient Instructions * Patient Instructions* Tammy Llanos MD - 03/29/2018 2:00 PM EDT Images from the original note were not included. Start your control pill tonight. Patient Education Combination Control Pills for Teens: Care Instructions Your Care Instructions Combination control pills are used to prevent . They give you a regular dose of the hormones estrogen and progestin. You take a hormone pill every day to prevent . control pills come in packs. The most common type has 3 weeks of hormone pills. Some packs have sugar pills (they do not contain any hormones) for the fourth week. During that fourth no-hormoneweek, you have your period. After the fourth week (28 days), you start a new pack. Some control pills are packaged in different ways. For example, some have hormone pills for the fourth week instead of sugar pills. Taking hormones for the entire month causes you to not have periods or to have fewer periods. Others are packaged so that you have a period every 3 months. Your doctor will tell you what type of pills you have. Follow-up care is a atkins part of your treatment and safety. Be sure to make and go to all appointments, and call your doctor if you are having problems. It's also a good idea to know your test resultsand keep a list of the medicines you take. How can you care for yourself at home? How do you take the pill? ?? Follow your doctor's instructions about when to start taking your pills. Use backup control, such as a condom, or don't have intercourse for 7 days after you start your pills. ?? Take your pills every day, at about the same time of day. To help yourself do this, try to take them when you do something else every day, such as brushing your teeth. ?? Use latex condoms every time you have sex. Use them from the beginning to the end of sexual contact. Use a female condom if your partner doesn't have or won't use a condom. What if you forget to take a pill? Always read the label for specific instructions, or call your doctor. Here are some basic guidelines: ?? If you miss 1 hormone pill, take it as soon as you remember. Ask your doctor if you may need to use a backup control method, such as a condom, or not have intercourse. It's best to always use a condom when you have sex. ?? If you miss 2 or more hormone pills, take one as soon as you remember you forgot them. Then readthe pill label or call your doctor about instructions on how to take your missed pills. Use a backup method of control or don't have intercourse for 7 days. is more likely if you missmore than 1 pill. ?? If you had intercourse, you can use emergency contraception, such as the morning-after pill (Plan B). You can use emergency contraception for up to 5 days after having had intercourse, but it works best if you take it right away. What else do you need to know? ?? The pill has side effects. ? You may have very light or skipped periods. ? You may have bleeding between periods (spotting). This usually decreases after 3 to 4 months. ? You may have mood changes, less interest in sex, or weight gain. ?? The pill may reduce acne, heavy bleeding and cramping, and symptoms of premenstrual syndrome. ?? Check with your doctor before you use any other medicines, including wnir-mbg-gjxadid medicines.Make sure your doctor knows all of the medicines, vitamins, herbal products, and supplements you take. control hormones may not work as well to prevent when combined with other medicines. ?? The pill doesn't protect against sexually transmitted infections (STIs), such as herpes or HIV/AIDS. Use latex condoms every time you have sex. Use them from the beginning to the end of sexual contact. ?? You should never feel pressured to have sex. It's okay to say no anytime you want to stop. ?? It's important to feel safe with your sex partner and with the activities you are doing together. If you don't feel safe, talk with an adult you trust. When should you call for help? Watch closely for changes in your health, and be sure to contact your doctor if you have any problems. Where can you learn more? Visit our health information library at http://Summly/HelpMeRent.como. You can also view health information on [employer], your personal patient account. Log in or sign uptoday. Enter P365 in the search box to learn more about Combination Control Pills for Teens: Care Instructions. Current as of: May 05, 2017 Content Version: 11.7 ?? [id number] [employer]. Care instructions adapted under license by [facility]. If you have questions about a medical condition or this instruction, always ask your healthcare professional. [employer] disclaims any warranty or liability for your use of this information. documented in this encounter Progress Notes * Tammy Llanos MD - 03/29/2018 2:00 PM EDT Subjective: Patient ID: Ely Mahmood is a 13 y.o. female. HPI Here for ongoing mental health care. Well known to PCP. School: [employer], 8th grade. Doing well in 3 classes. Will start seeing an embedded mental health counselor through [facility] [place]. Other: Interested in control for menstrual control & contraception. Menarche 12, Fairly regular. Male partner Review of Systems BP 120/70 Pulse 84 Wt 47.5 kg (104 lb 11.5 oz) LMP 03/23/2018 (Exact Date) Objective: Physical Exam Constitutional: She appears well-developed and well-nourished. No distress. Skin: Acne: Moderate on face Assessment and Plan: Long conversation with grandma & patient about contraceptive options. Reviewed options with patient including IUD, implant, OCP, nuvaring/patch, And depo. Strongly recommend LARC. Pt chooses to be on OCP. Side effects reviewed including risk of blood clots, nausea, mood. ?? Nordette (levonorgestrel and ethinyl estradiol) Tablets, 0.15mg/0.03mg 1 tab po QD. ?? Reviewed safer sex, plan B (Rx given). ?? Instructions given via AVS on use. ?? F/U any concerns. Social/mental health: Release signed for school and therapist. F/U with PCP in 1 month. documented in this encounter Plan of Treatment Upcoming Encounters Date Type Department Care Team (Late st Contact Info) Description 08/08/2024 9:00 AM EST Appointment [address] [phone] Umu Saucedo RN 08/15/2024 10:45 AM EST TH Visit (TeleHealth) Obstetrics and Gynecology at [place] [phone] Dara Kelley MD [facility] DR OBSTETRICS [place] [address] 11/25/2024 Hospital Encounter Birthing [place] [phone] Dara Gonzalez MD [facility] DR OBSTETRICS [place] [address] 07/12/2025 1:40 PM EST Office Visit Ophthalmology at [place] [phone] Bina Agrawal OD [facility] [place] [address] documented as of this encounter Visit Diagnoses Diagnosis Encounter for contraceptive management, unspecified type documented in this encounter Care Teams Recreation Aide Relationship Specialty Start Date End Date Florecita Pickard MD PCP - General Pediatrics 11/25/16 10/04/19 documented as of this encounter
--- OUTSIDE RECORDS SUMMARY | 2024-07-29 00:27 | XMS_ITS | Encounter Summary ---
Author Organization [facility] Address [facility] [place] [address] Care Team Providers Care Public Space Attendant Name Role Phone Florecita Pickard MD Primary Care Provider Unav ailable Reason for Visit * Reason Onset Date Comments Medication Problem 03/30/2018 Encounter Details Date Type Department Care Team (Late st Contact Info) Description 03/30/2018 Telephone Pediatrics at [address] [phone] Sherie Bassett Medication Problem Social History Tobacco Use Types Packs/Day Years [...] Telephone Encounter - Shelly Guzman LPN - 03/30/2018 11:46 AM EDT Spoke to Grandmother who states that the prescriptions have been completed and are are the pharmacy. * Telephone Encounter - Oniel Ricks - 03/30/2018 11:43 AM EDT Grandmother states both of these prescriptions are at the Pharmacy. * Telephone Encounter - Sherie Bassett - 03/30/2018 11:34 AM EDT Pharmacy or caller: [facility] Medication: levonorgestrel-ethinyl estradiol (NORDETTE) 0.15-0.03 mg Tablet And levonorgestrel (PLAN B) 1.5 mg Tablet tablet Message: Grandmother and guardian states that this is not at pharmacy documented in this encounter Plan of Treatment Upcoming Encounters Date Type Department Care Team (Late st Contact Info) Description 08/08/2024 9:00 AM EST Appointment [address] [phone] Umu Saucedo RN 08/15/2024 10:45 AM EST TH Visit (TeleHealth) Obstetrics and Gynecology at [place] [phone] Dara Kelley MD [facility] OBSTETRICS [place] [address] 11/25/2024 Hospital En[place] [phone] Dara Gonzalez MD [facility] OBSTETRICS [place] [address] 07/12/2025 1:40 PM EST Office Visit Ophthalmology at [place] [phone] Bina Agrawal OD [facility] [place] [address] documented as of this encounter Visit Diagnoses Not on filedocumented in this encounter Care Teams Public Space Attendant Relationship Specialty Start Date End Date Florecita Pickard MD PCP - General Pediatrics 11/25/16 10/04/19 documented as of this encounter
--- OUTSIDE RECORDS SUMMARY | 2024-07-29 00:27 | XMS_ITS | Encounter Summary ---
Author Organization [facility] Address [facility] [place] [address] Care Team Providers Care Manager Fixed Income Name Role Phone Florecita Pickard MD Primary Care Provider Unav ailable Reason for Visit * Reason Onset Date Comments Questions 03/30/2018 Encounter Details Date Type Department Care Team (Late st Contact Info) Description 03/30/2018 Telephone Pediatrics at [address] [phone] Oniel Quintana Questions Social History Tobacco Use Types Packs/Day [...] Encounter - Shelly Guzman LPN - 03/30/2018 11:50 AM EDT After confirming last name and Grandmom states that they had garbage pick up worker Flovent at pharmacy and she was wondering why she go it. I Advised that Pt didn't need to garbage pick up worker the Flovent as it was ordered in error. Grandmother states agreement. * Telephone Encounter - Oniel Ricks - 03/30/2018 11:41 AM EDT Message: Grandmother is calling wondering why this fluticasone (FLOVENT) 44 mcg/actuation HFA Aerosol Inhaler Was prescribed ? States they did pick it up last night. Caller and relationship (if other than patient-full name): Mirna Best time to call back: any Ok to leave a message: [yes] Ok to send my- message: [] Offered Appointment: MA/Nurse contacted via: Message: x Call: Pager: documented in this encounter Plan of Treatment Upcoming Encounters Date Type Department Care Team (Late st Contact Info) Description 08/08/2024 9:00 AM EST Appointment [address] [phone] Umu Saucedo, RN 08/15/2024 10:45 AM EST TH Visit (TeleHealth) Obstetrics and Gynecology at [place] [phone] Dara Kelley MD [facility] OB[place] [address] 11/25/2024 Hospital [place] [address] Dara Gonzalez MD [facility] [place] [address] 07/12/2025 1:40 PM EST Office Visit Ophthalmology at [place] [phone] Bina Agrawal OD [facility] [place] [address] documented as of this encounter Visit Diagnoses Not on filedocumented in this encounter Care Teams Manager Fixed Income Relationship Specialty Start Date End Date Florecita Pickard MD PCP - General Pediatrics 11/25/16 10/04/19 documented as of this encounter
--- OUTSIDE RECORDS SUMMARY | 2024-07-29 00:27 | XMS_ITS | Encounter Summary ---
Author Organization [facility] Address [facility] [place] [address] Care Team Providers Care Egyptologist Name Role Phone oHracio Joshua MD Primary Care Provider [phone] Reason for Visit * Reason Comments Cough here with gram (Feyl kenneth); cough x1.5 week, using dynatap for cough- not helping; no fevers; runny nose; somewhat productive; Encounter Details Date Type Department Care Team ([facility] st Contact Info) Description 05/29/2015 11:40 AM EST Office Visit Pediatrics at [address] [phone] Alondra Ruff MD Viral URI with cough Social History Tobacco Use Types Packs/Day Years [...] Sign Reading Time Taken Comments Blood Pressure 103/65 05/29/2015 11:17 AM EST Pulse 106 05/29/2015 11:17 AM EST Temperature 37 ??C (98.6 ??F) 05/29/2015 11:17 AM EST Respiratory Rate 24 05/29/2015 11:17 AM EST Oxygen Saturation 99% 05/29/2015 11:17 AM EST Inhaled Oxygen Concentration - - Weight 35.7 kg (78 lb 12.8 oz) 05/29/2015 11:17 AM EST Height - - Body Mass Index - - documented in this encounter Progress Notes * Tammy Llanos MD - 05/29/2015 8:24 PM EST I was the attending physician supervising the resident in the above care. For the purposes of billing, the resident provided the care. * Alondra Ruff MD - 05/29/2015 11:23 AM EST Assessment: Viral URI with cough. She is afebrile and her lungs are clear bilaterally, no concern for pneumonia at this time. She also has predominantly comedomal acne on her forehead that has not improved with OTC medications. Plan: - continue supportive care for URI including plenty of fluids, honey for cough, and rest - apply benzaclin topically to acne 1-2x daily Return to Clinic for: Prn fever and worsening cough, worsening acne Chief Complaint: Chief Complaint Patient presents with ??? Cough here with gram (Feylene); cough x1.5 week, using dynatap for cough- not helping; no fevers; runny nose; somewhat productive; History of Present Illness: - cough x1.5weeks, yellow phlegm - post-tussive emesis x1 - losing voice - rhinorrhea for past few days, congestion - no fevers, diarrhea, headache, abdominal pain - decreased appetite, drinking plenty of fluids - grandma is also sick with similar symptoms - missed school yesterday and last Saul - tried dimetap and cough drops, but doesn't help - also would like to try something stronger for acne on forehead, has not improved with OTC medications Review of Systems: See HPI PMH: Patient Active Problem List Diagnosis Code ??? 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 CIS - Poor sleep ??? 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 Wears hearing aid Z97.4 ??? Conductive hearing loss, unilateral with unrestricted hearing on the contralateral side H90.2 ??? High risk social situation Z72.89 Vital Signs: BP 103/65 mmHg Pulse 106 Temp(Src) 37 ??C (98.6 ??F) (Oral) Resp 24 Wt 35.743 kg (78 lb 12.8 oz) SpO2 99% PHYSICAL EXAM: General: well-appearing Skin: warm, dry, pink. Scattered over forehead are pink to red papules HEENT: NC/AT, OP clear and without erythema or exudate, MMM, +cervical lymphadenopathy Chest: CTAB, good air movement, no W/R/R CV: Normal S1 and S2, RRR, no M/R/G ALONDRA RUFF MD documented in this encounter Plan of Treatment Upcoming Encounters Date Type Department Care Team (Late st Contact Info) Description 08/08/2024 9:00 AM EST Appointment [address] [phone] Umu Saucedo, RN 08/15/2024 10:45 AM EST TH Visit (TeleHealth) Obstetrics [place] [phone] Dara Kelley MD [facility] OBSTETRICS [place] [address] 11/25/2024 [place] [address] Dara Gonzalez MD [facility] OBSTETRICS AND GYNECOLOGY [place], [place] [phone] 07/12/2025 1:40 PM EST Office Visit [place] [address] Bina Agrawal, JONELLE [facility] [place] [address] documented as of this encounter Visit Diagnoses Diagnosis Viral URI with cough Acute upper respiratory infections of unspecified site documented in this encounter Care Teams Egyptologist Relationship Specialty Start Date End Date Horacio Joshua MD PCP - General 05/07/10 08/16/15 documented as of this encounter
--- OUTSIDE RECORDS SUMMARY | 2024-07-29 00:27 | XMS_ITS | Encounter Summary ---
Author Organization [facility] Address [facility] [place] [address] Care Team Providers Care Laundry Tech Name Role Phone Florecita Pickard MD Primary Care Provider Unav ailable Reason for Visit * Reason Comments Well Child Pt here with Gram. Other No concerns. No ED v isits. Encounter Details Date Type Department Care Team (Late st Contact Info) Description 05/12/2017 3:00 PM EST Office Visit Pediatrics at [address] [phone] Florecita Pickard MD Encounter for routine child [...] Sign Reading Time Taken Comments Blood Pressure 100/54 05/12/2017 3:18 PM EST Pulse - - Temperature - - Respiratory Rate - - Oxygen Saturation - - Inhaled Oxygen Concentration - - Weight 45.6 kg (100 lb 9.6 oz) 05/12/2017 3:18 P M EST Height 148.6 cm (4' 10.5) 05/12/2017 3:18 PM ES T Body Mass Index 20.67 05/12/2017 3:18 PM EST Body Mass Index Percentile 70.33% 05/12/2017 3:1 8 PM EST Growth Chart: [facility] (Girls, 2- 20 Years) documented in this encounter Patient Instructions * Patient Instructions* Tangela Stafford MA - 05/12/2017 3:19 PM EST Images from the original note [...] about her grades on tests and attend seji-ey-yeolwb events and parent-teacher conferences if possible. ?? [...] fear. Poison Help: Child safety seat inspection: [id number]; seatcheck.org Your Growing and Changing Body ??? [place] your teeth twice a day and floss [...] Progress Notes * Florecita Pickard MD - 05/12/2017 3:00 PM EST Subjective: Patient ID: Ely Mahmood is a 12 y.o. female. HPI Ely Mahmood is a 12 y.o. here today for: Chief Complaint Patient presents with ??? Well Child Pt here with Gram. ??? Other No concerns. No ED visits. Accompanied by: Grandmother Reviewed the Bright Futures questionnaire and recorded all positive remarks: not done at this visit Problem list assessed and updated. Additional Concerns/Interval History: -No major concerns besides acne; her grandmother states that she does not use her acne pads regularly and that her acne improves when she remembers to use them. -In [place] 'pulled a muscle' in her shoulder in 01/2017. No issues with her shoulder or arm. -In gym class yesterday, she felt dizzy after exercising. She felt better after resting. Health Maintenance and Age Appropriate Review of Systems: Females: Menarche: started 06/07/2016 LMP: 01/2017, still irregular. Ely Mahmood completed the DartScreen (comprehensive health screener) today. The full list of questions are on file. The following area(s) were assessed: issues of screener-identified concernand further confidential discussion are noted below: DartScreen 05/12/2017 Nutrition Score 1 (Nutrition Risk) Sports Cardiac Score 1 (Sports Cardiac Risk) Activities Score 3 (Activity Risk) School Score 0 (No School Risk) Safety Score 2 (Safety Risk) Tobacco Score 1 (Tobacco Risk) Social Life Score (No Social Life Risk) Mental Health Score (PHQ2) 0 (Brief screen negative) Anxiety Score 0 (No Anxiety Risk) Self Harm Score 0 (No Self harm Risk) Family Score 0 (No Family Risk) Health Maintenance: per AAP Bright Future Guidelines: Comments Prompts/guidelines Menses Menarche Jun 07 2016. LMP Mar 2017, cycles still irregular. Menarche, LMP, regular cycles Dental Not brushing teeth everyday, but does floss when she brushes. Has seen a dentist this year, had last appointment in 02/2017. BID brush, flossing, dentist Home Good lives at home with grandmother, sister, and grandmothers' zevicl-es-axc (who smokes in the house) How are things at home? Education School going better. Favourite subject is Greek or language arts. A's and B's in school. How is school going. Best subject? Employment n/a Activities 5 hours a day of screen time per day No exercise, not playing basketball this year Leisure activity. Exercise. Media <2hr/day Diet Does not eat 5 servings of fruit or vegetables daily 5210. Ca/VitD intake. Body Imag Drugs No tobacco, EtOh or other drugs Drinks coffee occasionally in the morning Caffeine, tobacco, EtOH, other Sleep Sleeps 9-10pm and wakes up 630am. Falls asleep reading a book. On weekends, stays up late andsleeps in late. How many hours do you get per night? Sexuality In a relationship with boyfriend for the last 2 years. Not sexually active yet. Attraction/sexual activity, STI risk Suicide/ depression Mood up and down Safety Guns are locked up, they are not staying in the house (they are moving out with grandfather). helmets, weapons, interpersonal violence, bullying, vehicle safety (seat belt, texting etc). Pre-Sports Eval: Consider cardiology referral if concerns about the following table or if the following are present on exam: HTN, heart murmur, abnormal femoral pulses, stigmata of Marfan's Denies Comments Exertional chest pain/discomfort x Stitch in side occasionally while running Excessive exertional dyspnea/SOB x Unexplained syncope (excluding vasovagal) x Previous head injury/concussion x h/o fracture or sprain x Shoulder 'muscle tear' this past year, shoulder ok now FHx of premature sudden <50yo or cardiac conditions (long QT, HCM, Marfan, arrhythmia) x Social/Family History: Social History Narrative 04/2017 Father in group home Grandparents are , grandmother has guardianship for both Ely and her sister. Family History Updated Family lives [place] [place] [facility] [phone]. Vitals: 05/12/17 1518 BP: 100/54 Weight: 45.6 kg (100 lb 9.6 oz) Height: 148.6 cm (4' 10.5) Blood pressure percentiles are 30.5 % systolic and 21.4 % diastolic based on NHBPEP's 4th Report. Blood pressure percentiles are 30 % systolic and 21 % diastolic based on NHBPEP's 4th Report. Blood pressure percentile targets: 90: 119/77, 95: 123/81, 99 + 5 mmH/93. 43 %ile based on CDC 2-20 Years dhuddt-fkg-cab data using vitals from 05/12/2017. 7 %ile based on CDC 2-20 Years juyvvev-dgl-jaa data using vitals from 05/12/2017. Body mass index is 20.67 kg/(m^2). 70 %ile based on CDC 2-20 Years BMI-for-age data using vitals from 05/12/2017. Review of Systems Constitutional: Negative for fever. Neuro: no headaches,no visual changes ENT: no rhinorrhea, no congestion CVS: no chest pain except stitch in side when running Resp: no cough GI: no trouble swallowing : no dysuria Objective: Physical Exam Constitutional: She appears well-developed. No distress. HENT: Mouth/Throat: No oropharyngeal exudate. Eyes: Pupils are equal, round, and reactive to light. Cardiovascular: Normal rate, regular rhythm and normal heart sounds. No murmur heard. Pulmonary/Chest: Effort normal and breath sounds normal. No respiratory distress. She has no wheezes. Abdominal: Soft. Bowel sounds are normal. She exhibits no distension. There is no tenderness. Lymphadenopathy: She has no cervical adenopathy. Neurological: She is alert. Skin: Skin is warm. Psychiatric: She has a normal mood and affect. Assessment and Plan: Healthy adolescent with normal growth and development. At our visit today we discussed trying to reduce screen time, especially before bedtime. We also discussed Ely brushing her teeth at least oncea day to start with, before bed, and then increasing to twice per day. We discussed options for improving her acne, such as using her acne pads more regularly, washing her face before bed and in the morning,washing her hair more often so that it is less oily, and changing her pillow case more often. Growth Parameters: BMI =70 %ile based on CDC 2-20 Years BMI-for-age data using vitals from 05/12/2017. Immunizations: Immunization record reviewed: Due for Hep A and Flu vaccine Patient and family was counseled on benefits, risks and complications for all vaccines and components as listed in the immunization category of the patient record and patient/family was given VIS foreach vaccine component. Recommended screening: ?? GC/CT (urine based testing) for [id number] olds and ALL sexually active adolescents. Follow up: Return in one year for your next yearly physical. * Horacio Joshua MD - 05/12/2017 3:00 PM EST I have seen the patient and reviewed the resident's above history and I agree with the details as written. The assessment and plan were formulated in discussion with me and I agree with them as documented. documented in this encounter Plan of Treatment Upcoming Encounters Date Type Department Care Team (Late st Contact Info) Description 08/08/2024 9:00 AM EST Appointment [address] [phone] Umu Saucedo, RN 08/15/2024 10:45 AM EST TH Visit (TeleHealth) Obstetrics and Gynecology at [place] [phone] Dara Kelley MD [facility] [address] [place] [address] 11/25/2024 Hospital Encounter Birthing [place] [phone] Dara Gonzalez MD [facility] [address] [place] [address] 07/12/2025 1:40 PM EST Office Visit Ophthalmology at [place] [phone] Bina Agrawal OD [facility] [place] [address] documented as of this encounter Visit Diagnoses Diagnosis Encounter for routine child health examination without abnormal findings Routine or child health check documented in this encounter Care Teams Laundry Tech Relationship Specialty Start Date End Date Florecita Pickard MD PCP - General Pediatrics 11/25/16 10/04/19 documented as of this encounter
--- OUTSIDE RECORDS SUMMARY | 2024-07-29 00:27 | XMS_ITS | Encounter Summary ---
Author Organization [place] [address] Care Team Providers Care Epic Ambulatory Analysts Name Role Phone Horacio Joshua MD Primary Care Provider [phone] Reason for Visit * Reason Comments Other Encounter Details Date Type Department Care Team (Late st Contact Info) Description 04/24/2015 Refill Pediatrics at [address] [phone] Jesús Baeza RN Otorrhea, unspecified laterality Social History Tobacco Use Types Packs/Day Years [...] Miscellaneous Notes * Telephone Encounter - Jesús Baeza RN - 04/26/2015 5:03 PM EST Called GM to advise of recommendations for ciprodex. Rx sent to [facility] for 4 drops to R ear twice daily for days. GM understood recommendations. * Telephone Encounter - Jesús Baeza RN - 04/24/2015 11:23 AM EST Spoke to . Ely is at school, so she is not available for to check with her. thinks discharge is getting better. Hasn't taken any out lately. She takes her fingernail and cleans out her earif it accumulates ther Feeling fine. Hasn't complained about it. Puts a cotton ball in her ear so that it doesn't drip out, but doesn't think she has had to do that lately. Asked if I could call back after school to check in when Ely is there. states she picks her up from the bus at 3:30.Will check in later. It wasn't running but it started running again when she picked some wax out of her ear. Consulted with Dr. Joshua, who recommends calling ENT to see if she can be seen sooner. Left messageon triage nurse line ([phone]) * Telephone Encounter - Jesús Baeza RN - 04/24/2015 11:18 AM EST ----- Message from Horacio Joshua MD sent at 04/23/2015 9:21 AM EST ----- Regarding: triage, please check in on patient (not urgent) Triage, could you please check on patient some time this week? Alondra Quach saw her last Thursday and she had ear drainage of unknown origin. We deferred management because she was supposed to see ENT a few days later but now I see that they cancelled her ENT appointment and she is not rescheduled until 07/04/2014!!! If her ear drainage is continuing, then that is TOO LONG to wait. She should either get in to ENT sooner or should at least see us again. Alternatively, we could empirically treat her with ofloxacin ear drops for 7 days and see if this clears it, but if it does not or it recurs after stopping then she will really need to get in to ENT to make sure there is not a bigger problem like a cholesteatoma. Thanks, Horacio (Alondra, just an FYI). documented in this encounter Plan of Treatment Upcoming Encounters Date Type Department Care Team (Late st Contact Info) Description 08/08/2024 9:00 AM EST Appointment [address] [phone] Umu Saucedo RN 08/15/2024 10:45 AM EST TH Visit (TeleHealth) Obstetrics and Gynecology at [place] [phone] Dara Kelley MD [facility] OBSTETRICS [place] [address] 11/25/2024 Hospital Encounter Birthing [address] Dara Gonzalez MD [facility] OBSTETRICS [place] [address] 07/12/2025 1:40 PM EST Office Visit Ophthalmology at [address] Bina Agrawal OD [facility] [place] [address] documented as of this encounter Visit Diagnoses Diagnosis Otorrhea, unspecified laterality documented in this encounter Care Teams Epic Ambulatory Analysts Relationship Specialty Start Date End Date Horacio Joshua MD PCP - General 05/07/10 08/16/15 documented as of this encounter
--- OUTSIDE RECORDS SUMMARY | 2024-07-29 00:27 | XMS_ITS | Encounter Summary ---
Author Organization [facility] Address [facility] [place] [address] Care Team Providers Care Back Line Cook Name Role Phone Florecita Pickard MD Primary Care Provider Unav ailable Reason for Visit * Reason Comments Follow-up Pt here with Grandmo Mirna torres. Pt c/o of abdominal pain, not getting any better. Encounter Details Date Type Department Care Team (Late st Contact Info) Description 09/09/2017 12:00 PM EDT Office Visit Pediatrics at [address] [phone] Pipre Ugarte APRN [facility] [address] [place] [address] Stomach ache Social History Tobacco Use Types [...] Reading Time Taken Comments Blood Pressure 110/60 09/09/2017 11:36 AM EDT Pulse - - Temperature 36.9 ??C (98.4 ??F) 09/09/2017 11:36 AM E DT Respiratory Rate - - Oxygen Saturation - - Inhaled Oxygen Concentration - - Weight 45.8 kg (101 lb) 09/09/2017 11:36 AM EDT Height - - Body Mass Index - - documented in this encounter Progress Notes * Piper Ugarte APRN - 09/09/2017 12:00 PM EDT Subjective: Patient ID: Ely Mahmood is a 12 y.o. female. HPI; In with Chief Complaint Patient presents with ??? Follow-up Pt here with Grandmother, Mirna. Pt c/o of abdominal pain, not getting any better. Review of Systems Past 3 weeks No change in family, no loss identified Stomach ache now intermittent for 3 weeks-seems to come and go-but usually after eating; last less than 1/2 hr Since last week Has no dizziness and no spititng up of vomit Plain donut , soda-diet pepsi this am 10am Dinner: 5-5;30-pork roast, potatoe, cottage cheese; veg Lunch: school lunch Tummy hurts whole stomach-after eats if comes back Sausage, chese in a slovak muffin [place]; no dysuria; menses; has had-usually q mos, due soon No Constipation Denies feeling sad, depression Objective: Physical Exam Alert-easily discusses how is feeling Heent:nml Chest: no murmur Lungs CTA Abd; soft n/t Assessment and Plan: Hx of stomach ache seems more of a somatic complaint Unable to identify a pattern-reassurung is not losing wt; is able to eat sleep and enjoys school. Agreed that counseling may be helpful-will start with school rtc for a f/u to further discuss Suggested keeping log of tummy aches-may help identify a pattern Reassuring that has not had feveers or losing weight documented in this encounter Plan of Treatment Upcoming Encounters Date Type Department Care Team (Late st Contact Info) Description 08/08/2024 9:00 AM EST Appointment [address] [phone] Umu Saucedo, RN 08/15/2024 10:45 AM EST TH Visit (TeleHealth) Obstetrics and Gynecology at [place] [phone] Dara Kelley MD [facility] DR OBSTETRICS AND [place] [address] 11/25/2024 Hospital Encounter Birthing [place] [phone] Dara Gonzalez MD [facility] OBSTETRICS AND [place] [address] 07/12/2025 1:40 PM EST Office Visit Ophthalmology at [address] Bina Agrawal OD [facility] [place] [address] documented as of this encounter Visit Diagnoses Diagnosis Stomach ache Dyspepsia and other specified disorders of function of stomach documented in this encounter Care Teams Back Line Cook Relationship Specialty Start Date End Date Florecita Pickard MD PCP - General Pediatrics 11/25/16 10/04/19 documented as of this encounter
--- OUTSIDE RECORDS SUMMARY | 2024-07-29 00:27 | XMS_ITS | Encounter Summary ---
Author Organization [facility] Address [facility] [place] [address] Care Team Providers Care Family Law Legal Assistant Name Role Phone Horacio Joshua MD Primary Care Provider Encounter Details Date Type Department Care Team (Latest Contact Info) Description 04/05/2015 9:45 AM EDT - 04/05/2015 11:59 PM EDT Hospital Encounter XRay at [address] [place] [address] Severo Hill MD [facility] [place]THOPAEDIC [place] [address] Congenital scoliosis Discharge Disposition: Home Social History Tobacco Use [...] Sig Dispensed Refills Start Date End Date dextromethorphan-guaiFENe sin (ROBITUSSIN) 10-100 mg/5 mL Syrup Take 5 mLs by mouth 3 times daily as needed for Cough. 07/18/2016 documented as of this encounter Plan of Treatment Upcoming Encounters Date Type Department Care Team (Late st Contact Info) Description 08/08/2024 9:00 AM EST Appointment [address] [phone] Umu Saucedo RN 08/15/2024 10:45 AM EST TH Visit (TeleHealth) Obstetrics [place] [address] Dara Kelley MD [facility] [place] [address] 11/25/2024 Hospital [place] [address] Dara Gonzalez MD [facility] [place] [address] 07/12/2025 1:40 PM EST Office [place] [address] Bina Agrawal OD [facility] [place] [address] documented as of this encounter Procedures Procedure Name Priority Date/Time Associated Diagnosis Comments XR SCOLIOSIS OR TOTAL SPINE 1 VIEW Routine 04/05/2015 10:01 AM EDT Congenital scoliosis documented in this encounter Results * XR Scoliosis 1 View (SR GENERIC) (04/05/2015 10:01 AM EDT) Anatomical Region Laterality Modality C-spine, T-spine, L-spine N/A Digita l Radiography Impressions 04/05/2015 10:17 AM EDT IMPRESSION: Unchanged right thoracolumbar scoliotic curvature related to multiple vertebral body segmentation anomalies. No significant interval change as compared to prior. Narrative 04/05/2015 10:17 AM EDT EXAMINATION: XR SCOLIOSIS 1 VIEW CLINICAL HISTORY: 10-year-old female with congenital scoliosis, multiple vertebral body anomalies with thoracolumbar scoliosis. scoliosis - yearly follow up TECHNIQUE: PA standing spine exam from approximately T1 to the sacrum. COMPARISON: Prior imaging 10/29/2012 and 11/10/2013. FINDINGS: Again appreciated are possibly 2 butterfly-type vertebra at the cervicothoracic junction. There are 12 right ribs and 11 left ribs. Hemivertebra vertebra on the left and on the right spanning between T7 and T10. Focal dextroscoliotic curvature measured between T9 and T12 at approximately 28 degrees. Mild compensatory levoconvex scoliotic curvature. Pelvis is tilted to the right. SI joints are intact. The sacrum is incompletely evaluated due to a bulky overlying fecal material. Visualized portion of the lungs are clear. Procedure Note Whitley San MD - 04/05/2015 EXAMINATION: XR SCOLIOSIS 1 VIEW CLINICAL HISTORY: 10-year-old female with congenital scoliosis, multiple vertebral body anomalies with thoracolumbar scoliosis. scoliosis - yearlyfollow up TECHNIQUE: PA standing spine exam from approximately T1 to the sacrum. COMPARISON: Prior imaging 10/29/2012 and 11/10/2013. FINDINGS: Again appreciated are possibly 2 butterfly-type vertebra at thecervicothoracic junction. There are 12 right ribs and 11 left ribs. Hemivertebra vertebraon the left and on the right spanning between T7 and T10. Focal dextroscoliotic curvature measured between T9 and T12 at approximately 28 degrees. Mild compensatory levoconvex scoliotic curvature. Pelvis is tilted to theright. SI joints are intact. The sacrum is incompletely evaluated due to a bulkyoverlying fecal material. Visualized portion of the lungs are clear. IMPRESSION IMPRESSION: Unchanged right thoracolumbar scoliotic curvature related to multiplevertebral body segmentation anomalies. No significant interval change as comparedto prior. Severo Hill MD IMG DX ORDERABLES documented in this encounter Visit Diagnoses Diagnosis Congenital scoliosis Congenital musculoskeletal deformity of spine documented in this encounter Care Teams Family Law Legal Assistant Relationship Specialty Start Date End Date Horacio Joshua MD PCP - General 05/07/10 08/16/15 documented as of this encounter
--- OUTSIDE RECORDS SUMMARY | 2024-07-29 00:27 | XMS_ITS | Encounter Summary ---
Author Organization [facility] [place] [address] Care Team Providers Care Bull Rider Name Role Phone Shiva Joshua MD Primary Care Provider [phone] Encounter Details Date Type Department Care Team (Latest Contact Info) Description 05/03/2015 3:00 PM EST Clinical Support Audiology at [address] [phone] Demetrice Macdonald AUD [facility] [place] [address] Conductive hearing loss of right ear with unrestricted hearing of contralateral ear Social History Tobacco Use Types Packs/Day [...] Progress Notes * Demetrice Macdonald AUD - 05/03/2015 5:02 PM EST Audiology [place], [place] HISTORY: Name: Ely Mahmood : 2005 Date/Time of Visit: 05/03/2015 at 3:15 PM Reason for Visit: Monitor hearing and check of hearing aid amplification. Primary Care Provider: Shiva Joshua MD Accompanied by: Grandmother (guardian) Ely presents with a history of left mild, conductive hearing loss for which a hearing aid was fit on 09.01.2013. 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 Ely also is known to [facility] sales service representative, Dr. Matta, given her significant middle ear health history. Historically, Ely's right ear hearing has been within normal limits. Ely also is a former 29 weeker with [facility] stay. Please refer to Ely's medical record for any additional background information as needed. Interim History: ?? No noticeable changes in hearing. No concerns regarding hearing at school. ?? Currently has left hearing aid, but it is in storage as the family recently moved. Ely reports that it is too loud in the cafeteria. She did not wear the hearing aid much prior to their move. ?? Recently had a right ear infection with otorrhea. Treated with eardrops prescribed by her pharmacy student. ?? Ely denies otalgia, aural fullness, tinnitus, dizziness or balance difficulty. ?? Educational placement / supports: attends 5th grade at [employer]. Her grandmother thinks there is a [address] with hearing accommodations including preferential seating. She sits in the first group of tables, close to where her teacher stands. Historically, consultative services by the Deaf & Hard of Hearing Program through [facility]. EVALUATION (please also refer to audiogram): Otoscopy: Revealed clear external ear canals, bilaterally. Tympanometry: Right ear: Large ear canal volume (2.5 cc) with limited eardrum mobility. Left ear: Normal ear canal volume (0.7 cc) and middle ear pressure (-65 daPa) with shallow compliance (0.1 mL). Type As. Speech Warehouse Shipping Clerk Threshold: Right ear: 15 dB HL Left ear: 15 dB HL Frequency-Specific Behavioral Audiometry: Testing completed using insert earphones and Ely raising her hand when a tone was heard. Reliability was judged to be good. Right ear: hearing sensitivity is overall within normal limits with a mild conductive hearing loss at 250 and 2000 Hz. Left ear: hearing sensitivity is within normal limits from 250-8000 Hz. Word Recognition Testing: Right ear: 9/10 words correct when presented at 40 dB HL Left ear: 9/10 words correct when presented at 40 dB HL IMPRESSIONS: Ely' hearing sensitivity is overall within normal limits bilaterally with the exception of a mild conductive hearing loss at 250 and 2000 Hz in her right ear. Due to the significant improvement in left ear hearing, it is recommended that she discontinue left-sided hearing aid use at this time. However, we discussed that it is important to continue to monitor her hearing as the hearing in her left ear seems to fluctuate. RECOMMENDATIONS: ?? Continue medical management as appropriate. Ely has an appointment with Nella Stone APRN, in Otolaryngology this afternoon. ?? Continue to monitor hearing and amplification needs in 6 months. Ely should return sooner if concerns regarding her hearing arise before that time. ?? Discontinue hearing aid use in the left ear due to the improvement in hearing noted today. ?? Listening accommodations are recommended due to fluctuations in left ear hearing. Appropriate accommodations include: ?? preferential seating in all settings, near to the teacher/speaker and away from sources of noise(e.g. ventilation blowers/fans, open windows/doorways). ?? reduction in overall classroom background noise and reverberation levels. ?? re/direct attention toward the speaker before a spoken message is given. ?? Appropriate educational support services for hearing loss should be included in a formal educational plan. Supports should include: ?? Use of FM amplification to address difficulties of listening in background noise, reverberation and across distance, particularly while in the classroom. ?? Consultation to school through a curriculum development specialist or Intranet Developer. Please call this section at [phone] if there are any question regarding Ely Mahmood'shearing. YASEMIN CROWDER, [facility] Psychiatric Nurse Practitioner [place] [phone] (v) [phone] / (f) [phone] Attachment: Audiogram CC: Parents of: Ely Mahmood [address] [place] [address] SHIVA JOSHUA MD EQUIPMENT LIST: HEARING AID RIGHT LEFT Make/Model/Style NONE [employer] / Sensei Pro / BTE Casing Color blue Serial Number [id number] Battery Size/Battery Club 13 Invoice number / date [id number] 08/05/13 PROGRAM/SETTINGS Fitting Algorithm DSL Child Verification Method REM w/ RECD (updated 10.16.2014); SREM on file Programs P1: general (f/b mger run; auto dir britton; NM on) Other >on: jingle, low/change battery, light for program and low battery >deactivated: VC, program button HEARING AID WARRANTY Original Fit Date 09/01/13 Current Status 09/05/16 EARMOLD (if BTE [place]) Lab [facility] Earmold / Slim tube / MADHAVI specifics 2/clear/blue glitter/no vent/ otoblast/ dri 13 T/ med canal Impression Date 07/28/13 Invoice # [id number] 08/01/2013 Return impressions to clinic documented in this encounter Plan of Treatment Upcoming Encounters Date Type Department Care Team (Late st Contact Info) Description 08/08/2024 9:00 AM EST Appointment [address] [phone] Umu Saucedo, RN 08/15/2024 10:45 AM EST TH Visit (TeleHealth) Obstetrics [place] [address] Dara Kelley MD [facility] OBSTETRICS [place] [address] 11/25/2024 [place] [address] Dara Gonzalez MD [facility] OBSTETRICS [place] [address] 07/12/2025 1:40 PM EST Office [place] [address] Bina Agrawal, [facility] [place] [address] documented as of this encounter Visit Diagnoses Diagnosis Conductive hearing loss of right ear with unrestricted hearing of contralateral ear Conductive hearing loss, unilateral documented in this encounter Care Teams Bull Rider Relationship Specialty Start Date End Date Shiva Joshua MD PCP - General 05/07/10 08/16/15 documented as of this encounter
--- OUTSIDE RECORDS SUMMARY | 2024-07-29 00:28 | XMS_ITS | Encounter Summary ---
Author Organization [facility] [place] [address] Care Team Providers Care Chief Petroleum Engineer Name Role Phone Horacio Joshua MD Primary Care Provider [phone] Encounter Details Date Type Department Care Team (Late st Contact Info) Description 07/18/2013 2:15 PM EST Follow-Up Audiology at [address] [phone] Tracy Childers AUD Conductive hearing loss, unilateral (Primary Dx); Flat tympanogram, bilateral Discharge Disposition: Home Social History Tobacco Use [...] as of this encounter Progress Notes * Tracy Childers, YASEMIN - 07/18/2013 2:12 PM EST [place] [address] Ely Mahmood , 8 y.o. 6 m.o. was seen on 07/18/2013 for an audiologic evaluation. Please refer to the scanned audiogram listed under SCANDOC for findings, impressions and recommendations. It may take up to 24 hours for the audiogram to be scanned. Enclosure: Audiogram Tracy Herrmann, [place] [address] documented in this encounter Plan of Treatment Upcoming Encounters Date Type Department Care Team (Late st Contact Info) Description 08/08/2024 9:00 AM EST Appointment [address] [phone] Umu Saucedo RN 08/15/2024 10:45 AM EST TH Visit (TeleHealth) Obstetrics [place] [address] Dara Kelley MD [facility] [place] [address] 11/25/2024 Hospital [place] [address] Dara Gonzalez MD [facility] [place] [address] 07/12/2025 1:40 PM EST Office Visit Ophthalmology at [place] [phone] Bina Agrawal OD [facility] [place] [address] documented as of this encounter Visit Diagnoses Diagnosis Conductive hearing loss, unilateral- Primary Flat tympanogram, bilateral documented in this encounter Care Teams Chief Petroleum Engineer Relationship Specialty Start Date End Date Horacio Joshua MD PCP - General 05/07/10 08/16/15 documented as of this encounter
--- OUTSIDE RECORDS SUMMARY | 2024-07-29 00:28 | XMS_ITS | Encounter Summary ---
Author Organization [facility] [place] [address] Care Team Providers Care Supervisor Curing Room Name Role Phone Horacio Joshua MD Primary Care Provider [phone] Encounter Details Date Type Department Care Team (Latest Contact Info) Description 10/16/2014 4:43 PM EDT - 10/16/2014 11:59 PM EDT Hospital En[place] [phone] Conductive hearing loss, unilateral with unrestricted hearing on the contralateral side Social History Tobacco Use Types Packs/Day Years [...] Info) Description 08/08/2024 9:00 AM EST Appointment [address] [place] [phone] Umu Saucedo, RN 08/15/2024 10:45 AM EST TH Visit (TeleHealth) Obstetrics [place] [phone] Dara Kelley MD [facility] DR OBSTETRICS [place] [address] 11/25/2024 Hospital [place] [address] Dara Gonzalez MD [facility] OBSTETRICS [place] [address] 07/12/2025 1:40 PM EST Office Visit [place] [phone] Bina Agrawal OD [facility] [place] [address] documented as of this encounter Procedures Procedure Name Priority Date/Time Associated Diagnosis Comments CT TEMPORAL BONE WO CONTRAST Routine 10/16/2014 5:20 PM EDT Conductive hearing loss, unilateral with unrestricted hearing on the contralateral side documented in this encounter Results * CT temporal bone WO contrast (10/16/2014 5:20 PM EDT) Anatomical Region Laterality Modality Head Computed Tomogra phy 10/16/2014 5:20 PM EDT Impressions 10/16/2014 6:29 PM EDT IMPRESSION: * ??Postsurgical changes of left mastoidectomy. Progressive opacification of the left middle ear cavity and mastoid air cells. ??Findings could reflect recurrent chronic effusion/mastoiditis. No evidence for ossicular chain erosion to suggest cholesteatoma, although the stapes footplate is not well visualized. * ??Groundglass attenuation of parts of the left mastoid bone which could reflect underlying fibrous dysplasia or reaction to chronic inflammatory change. Narrative 10/16/2014 6:29 PM EDT EXAMINATION: CT Temporal Bone Middle and Inner Ear Without Contrast CLINICAL HISTORY: CHL TECHNIQUE: CT temporal bone was performed without contrast COMPARISON: CT temporal bone 03/22/2009 FINDINGS: Right ear: ??The external canal is normal. Portions of the tympanic membrane are mildly thickened. The ossicles are normal in appearance and position. The middle ear cavity and mastoid air cells are clear. The anterior structures are normal in appearance. No enlargement of the vestibular aqueduct. ??No superior semicircular canal dehiscence. Facial nerve canal is normal in appearance. Left ear: ??The external canal is normal. There is near-complete opacification of the left middle ear cavity and mastoid air cells, which measures soft tissue attenuation. Opacification extends into the petrous apex. ??Postsurgical changes status post mastoidectomy with coalescence of mastoid air cells with thinning and dehiscence of the mastoid temporal bone anterior to the sigmoid sinus. ??The middle ear ossicles appear intact although the stapes footplate is difficult to visualize. ??The otic capsule remains intact and the inner air structures are normally developed. The tegmen tympani and tegmen mastoideum appear intact. There is groundglass attenuation at the superior and inferior aspects of the mastoid bone. Procedure Note aBiley Miller MD - 10/16/2014 EXAMINATION: CT Temporal Bone Middle and Inner Ear Without Contrast CLINICAL HISTORY: CHL TECHNIQUE: CT temporal bone was performed without contrast COMPARISON: CT temporal bone 03/22/2009 FINDINGS: Right ear: The external canal is normal. Portions of the tympanicmembrane are mildly thickened. The ossicles are normal in appearance and position. Themiddle ear cavity and mastoid air cells are clear. The anterior structures arenormal in appearance. No enlargement of the vestibular aqueduct. No superior semicircular canal dehiscence. Facial nerve canal is normal inappearance. Left ear: The external canal is normal. There is near-completeopacification of the left middle ear cavity and mastoid air cells, which measures softtissue attenuation. Opacification extends into the petrous apex. Postsurgicalchanges status post mastoidectomy with coalescence of mastoid air cells withthinning and dehiscence of the mastoid temporal bone anterior to the sigmoid sinus.The middle ear ossicles appear intact although the stapes footplate isdifficult to visualize. The otic capsule remains intact and the inner air structuresare normally developed. The tegmen tympani and tegmen mastoideum appearintact. There is groundglass attenuation at the superior and inferior aspects ofthe mastoid bone. IMPRESSION IMPRESSION: * Postsurgical changes of left mastoidectomy. Progressive opacificationof the left middle ear cavity and mastoid air cells. Findings could reflectrecurrent chronic effusion/mastoiditis. No evidence for ossicular chain erosion tosuggest cholesteatoma, although the stapes footplate is not well visualized. * Groundglass attenuation of parts of the left mastoid bone which couldreflect underlying fibrous dysplasia or reaction to chronic inflammatory change. Chino Matta MD IMG CT ORDERABLES documented in this encounter Visit Diagnoses Diagnosis Conductive hearing loss, unilateral with unrestricted hearing on the contralateral side Conductive hearing loss, unilateral documented in this encounter Care Teams Supervisor Curing Room Relationship Specialty Start Date End Date Horacio Joshua MD PCP - General 05/07/10 08/16/15 documented as of this encounter
--- OUTSIDE RECORDS SUMMARY | 2024-07-29 00:28 | XMS_ITS | Encounter Summary ---
Author Organization Formerly [facility] Address [facility] [place] [address] Care Team Providers Care Conductor Symphonic Orchestra Name Role Phone Horacio Joshua MD Primary Care Provider [phone] Reason for Visit * Reason Comments Follow-up Encounter Details Date Type Department Care Team (Late st Contact Info) Description 10/16/2014 3:40 PM EDT [place] [address] Chino Matta MD [facility] [place] [address] Conductive hearing loss, unilateral with unrestricted hearing on the contralateral side Discharge Disposition: Home Social History Tobacco Use [...] Reading Time Taken Comments Blood Pressure 110/60 10/16/2014 3:56 PM EDT Pulse 65 10/16/2014 3:56 PM EDT Temperature - - Respiratory Rate - - Oxygen Saturation - - Inhaled Oxygen Concentration - - Weight 32.7 kg (72 lb) 10/16/2014 3:56 PM EDT Height 135.9 cm (4' 5.5) 10/16/2014 3:56 PM EDT Body Mass Index 17.69 10/16/2014 3:56 PM EDT Body Mass Index Percentile 55.94% 10/16/2014 3:5 6 PM EDT Growth Chart: [facility] (Girls, 2- 20 Years) documented in this encounter Progress Notes * Chino Matta MD - 10/16/2014 2:29 PM EDT In the presence of Dr Matta, I am recording the patients history of present illness. Linda PAREKH HPI: Ely is a 9 y.o. ex- 29 week girl with history of chronic serous otitis media s/p PE tubes, speech delay, developmental delay. History of bronchopulmonary dysplasia, congenital scoliosis. 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 Last seen in clinic 07/18/2013. PMH: reviewed, no interval change System review: the Constitutional and ENT systems are thoroughly reviewed for any changes. Pertinent positives are listed in the HPI. Physical Exam: The patient is well developed, well nourished. Responds to commands appropriately. Vocalizes in a strong clear voice. Alert and oriented x3. Ears: The pinnas are without erythema or mass. Facial motor function strong and symmetrical. Both ears were carefully examined using binocular microscopy Right: Nl EAC, TM with tympanosclerosis and atrophy / perf inferiorly with squamous trial to TM annular jxn, no infection, no cholesteatoma Left: extensive tympanosclerosis with atrophic segment inferiorly, with possible CATHIE, The following audiological studies were reviewed by me: mild CHL (30 dB) A/P: Left CHL due to either tympanosclerosis / middle ear fluid or both. I am unable to rule out fluid due to the tympanosclerotic TM. She is quite reluctant to wear her hearing aid. I have recommended a high resolution CT of the temporal bones as well I will notify the patient of the results of this study when they are available. RTC 3 mo with AE. I have performed the service outlined in the notes from this encounter and agree with the accuracy of the note. Prabhu Matta MD documented in this encounter Plan of Treatment Upcoming Encounters Date Type Department Care Team (Late st Contact Info) Description 08/08/2024 9:00 AM EST Appointment [address] [address] Umu Saucedo RN 08/15/2024 10:45 AM EST TH Visit (TeleHealth) [place]stetrics [place] [phone] Dara Kelley MD [facility] [place] [address] 11/25/2024 [place] [phone] Dara Gonzalez MD [facility] [place] [address] 07/12/2025 1:40 PM EST Office Visit Ophthalmology at [place] [phone] Bina Agrawal OD [facility] [place] [address] documented as of this encounter Results * CT temporal bone [...] aspects of the mastoid bone. Procedure Note Bailey Miller MD - 10/16/2014 EXAMINATION: CT Temporal [...] the contralateral side Conductive hearing loss, unilateral Conductive hearing loss, unilateral with unrestricted hearing on the contralateral side Conductive hearing loss, unilateral documented in this encounter Care Teams Conductor Symphonic Orchestra Relationship Specialty Start Date End Date Horacio Joshua MD PCP - General 05/07/10 08/16/15 documented as of this encounter
--- OUTSIDE RECORDS SUMMARY | 2024-07-29 00:28 | XMS_ITS | Encounter Summary ---
Author Organization [facility] Address [facility] [place] [address] Care Team Providers Care Escape Wheel Tooth Cutter Name Role Phone Horacio Joshua MD Primary Care Provider [phone] Reason for Visit * Reason Onset Date Comments Reminder Appointment 09/28/2014 Encounter Details Date Type Department Care Team (Late st Contact Info) Description 09/28/2014 Telephone [place] [phone] Severo Hill MD [facility] [place] [address] Reminder Appointment Social History Tobacco Use Types [...] encounter Miscellaneous Notes * Telephone Encounter - Yulisa Quionnez - 10/16/2014 2:03 PM EDT Unable to contact patient, letter sent. * Telephone Encounter - Marianna Valdes - 10/10/2014 3:28 PM EDT Left message #2 to schedule reminder appointment. * Telephone Encounter - Neida Lozada - 09/28/2014 4:21 PM EDT I have called and left a message for patient to call and schedule their reminder appointment. documented in this encounter Plan of Treatment Upcoming Encounters Date Type Department Care Team (Late st Contact Info) Description 08/08/2024 9:00 AM EST Appointment [address] [phone] Umu Saucedo RN 08/15/2024 10:45 AM EST TH Visit (TeleHealth) Obstetrics and Gynecology at [place] [phone] Dara Kelley MD [facility] DR OBSTETRICS [place] [address] 11/25/2024 Hospital Encounter Birthing [place] [phone] Dara Gonzalez MD [facility] OBSTETRICS [place] [address] 07/12/2025 1:40 PM EST Office Visit Ophthalmology at [place] [phone] Bina Agrawal OD [facility] [place] [address] documented as of this encounter Visit Diagnoses Not on filedocumented in this encounter Care Teams Escape Wheel Tooth Cutter Relationship Specialty Start Date End Date Horacio Joshua MD PCP - General 05/07/10 08/16/15 documented as of this encounter
--- OUTSIDE RECORDS SUMMARY | 2024-07-29 00:28 | XMS_ITS | Encounter Summary ---
Author Organization [facility] [place] [address] Care Team Providers Care Outside Machinist Name Role Phone Horacio Joshua MD Primary Care Provider [phone] Reason for Visit * Reason Comments Well Child Encounter Details Date Type Department Care Team (Late st Contact Info) Description 04/25/2013 3:30 PM EST Office Visit Pediatrics at [address] [phone] Judy Neri MD Routine or child health check (Primary Dx) Discharge Disposition: Home Social History Tobacco Use [...] Sign Reading Time Taken Comments Blood Pressure 100/60 04/25/2013 3:49 PM EST Pulse - - Temperature - - Respiratory Rate - - Oxygen Saturation - - Inhaled Oxygen Concentration - - Weight 28 kg (61 lb 12.8 oz) 04/25/2013 3:49 PM EST Height 126 cm (4' 1.61) 04/25/2013 3:49 PM EST Body Mass Index 17.66 04/25/2013 3:49 PM EST Body Mass Index Percentile 69.21% 04/25/2013 3:4 9 PM EST Growth Chart: [facility] (Girls, 2- 20 Years) documented in this encounter Patient Instructions * Patient Instructions* Renetta Yusuf RN - 04/25/2013 3:54 PM EST Images from the original note were not included. Staying Healthy ??? Encourage your child to eat healthy. ??? Buy fat-free milk and low-fat dairy foods, and encourage 3 servings each day. ??? Include 5 servings of vegetables and fruits at meals and for snacks daily. ??? Limit TV and computer time to 2 hours a day. ??? Encourage your child to be active for at least 1 hour daily. ??? Eat as a family often. Safety ??? The back seat is the safest place to ride in a car until your child is 13 years old. ??? Use a booster seat until the vehicle???s safety belt fits. The lap belt can be worn low and flat on the upper thighs. The shoulder belt can be worn across the shoulder and the child can bend at the knees while sitting against the vehicle seat back. ??? Teach your child to swim and watch her in the water. ??? Your child needs sunscreen (SPF 15 or higher) when outside. ??? Your child needs a helmet and safety gear for biking, skating, in-line skating, skiing, snowmobiling, and horseback riding. ??? Talk to your child about not smoking cigarettes, using drugs, or drinking alcohol. ??? Make a plan for situations in which your child does not feel safe. ??? Get to know your child???s friends and their families. ??? Never have a gun in the home. If necessary, store it unloaded and locked with the ammunition locked separately from the gun. Your Growing Child ??? Be a model for your child by saying you are sorry when you make a mistake. ??? Show your child how to use his words when he is angry. ??? Teach your child to help others. ??? Give your child chores to do and expect them to be done. ??? Give your child his own space. ??? Still watch your child and your child???s friends when they are playing. ??? Understand that your child???s friends are very important. ??? Answer questions about puberty. ??? Teach your child the importance of delaying sexual behavior. Encourage your child to ask questions. ??? Teach your child how to be safe with other adults. ??? No one should ask for a secret to be kept from parents. ??? No one should ask to see your child???s private parts. ??? No adult should ask for help with his private parts. School ??? Show interest in school activities. ??? If you have any concerns, ask your child???s teacher for help. ??? Praise your child for doing things well at school. ??? Set a routine and make a quiet place for doing homework. ??? Talk with your child and her teacher about bullying. Healthy Teeth ??? Help your child brush teeth twice a day. ??? After breakfast ??? Before bed ??? Use a pea-sized amount of toothpaste with fluoride. ??? Help your child floss his teeth once a day. ??? Your child should visit the dentist at least twice a year. ??? Encourage your child to always wear a mouth guard to protect teeth while playing sports. Poison Help: Child safety seat inspection: 5-087-PHZYEARJJ; seatcheck.org documented in this encounter Progress Notes * Chino Arnett MD - 04/27/2013 8:43 AM EST The case was discussed at the time of the visit or immediately after the visit. The assessment and plan were formulated in discussion with me and I agree with them as documented. I have reviewed the history, physical exam, assessment and plan with the resident. * Judy Neri MD - 04/25/2013 3:59 PM EST Subjective: Ely Mahmood is here for her well child check. Chief Complaint Patient presents with ??? Well Child The Bright Futures questionnaire has been reviewed and positive answers recorded. Concerns/interim history: - None - Her teacher, Mr Wallace is the best teacher ever and she loves school. She is in the third grade and loves almost all subjects. - Has discussed periods with her grandmother (guardian) The following topics were reviewed and relevant details recorded below. X = reviewed and no concerns. Nutrition: needs to eat more fruits/vegetables. Drinks about one little juice/soda per day/ Elimination: X Sleep: Has a hard time sleeping. Takes melatonin nightly at 7:30 pm, but falls asleep watching TV almost nightly. Oral health: has not brushed teeth for a while. Dental visit next month. Activity/media: does PE at school. Gets about 2-3 hours/day of screen time. Cardiopulmonary sports screening: School: as above. Loves PE. Goals/Hobbies: loves school Social History Narrative 03/03/12 Lives with pgp-since [age] yr of age MGP : information coder mom PGF: employed at [employer] Father has health issues-visits on a regular basis Family: father with a learning disability Parents with hx of drug addiction Objective: Physical Exam Filed Vitals: 04/25/13 1549 BP: 100/60 Height: 126 cm (4' 1.61) Weight: 28.032 kg (61 lb 12.8 oz) Constitutional: She appears well-developed and well-nourished. She is active. No distress. Head: Normocephalic, atraumatic. Right Ear: Tympanic membrane normal. Left Ear: Tympanic membrane normal. Mouth/Throat: Mucous membranes are moist. Dentition is normal. No dental caries. Oropharynx is clear. Eyes: Conjunctivae and EOM are normal. Pupils are equal, round, and reactive to light. Symmetric corneal light reflex. Cardiovascular: Normal rate, regular rhythm, S1 normal and S2 normal. No murmur heard. Pulmonary/Chest: Effort normal and breath sounds normal. Abdominal: Soft. Bowel sounds are normal. She exhibits no distension and no mass. There is no hepatosplenomegaly. No tenderness. Genitourinary: Normal elena 1 female genitalia Musculoskeletal: Normal range of motion. She exhibits no deformity. Neurological: She is alert and is grossly normal. Skin: Skin is warm. Capillary refill takes less than 3 seconds. No rash noted. No pallor. Today's growth parameters: 34.6%ile based on CDC 2-20 Years [id number] data. 8.56%ile based on CDC 2-20 Years [id number] data. 69.24%ile based on CDC 2-20 Years BMI-for-age data. Assessment and Plan: Ely Mahmood is healthy with normal interval growth and development. Immunizations, medications, and allergies were updated today as reflected in the record. [id number] counseling with risks and benefits discussion performed for all vaccines offered. Routine age-appropriate anticipatory guidance per Bright Future Guidelines. - Discussed sleep hygiene with no screen time 2 hours before sleep and proper use of melatonin - No flu vaccine this year. - Will think about HPV vaccine for next year. - Discussed brushing BID, eating fruits/vegs, decreasing screen time and limiting soda/juice. Follow-up in 1 yr for next well child exam or sooner as needed. Aydee Neri MD * Renetta Yusuf, RN - 04/25/2013 3:44 PM EST Accompanied by: grandmother:Mirna. Top concerns: She doesn't sleep or eat well. Hospitalization, ED, or specialty visits in past 6 months: No. Hearing concerns: None. Vision concerns: None. Dental/fluoride: Dentist twice/year. Locator Specialist Services offered: declined Immunizations/Bright Futures Screenings reviewed. Bright Futures Pre-visit Screen done. Patient Roomed By: RENETTA YUSUF RN documented in this encounter Plan of Treatment Upcoming Encounters Date Type Department Care Team (Late st Contact Info) Description 08/08/2024 9:00 AM EST Appointment [address] [phone] Umu Saucedo RN 08/15/2024 10:45 AM EST TH Visit (TeleHealth) Obstetrics and Gynecology at [place] [phone] Dara Kelley MD [facility] OBSTETRICS [place] [address] 11/25/2024 Hospital Encounter Birthing [place] [phone] Dara Gonzalez MD [facility] OBSTETRICS [place] [address] 07/12/2025 1:40 PM EST Office [place] [address] Bina Agrawal OD [facility] [place] [address] documented as of this encounter Visit Diagnoses Diagnosis Routine infant or child health check- Primary documented in this encounter Care Teams Outside Machinist Relationship Specialty Start Date End Date Horacio Joshua MD PCP - General 05/07/10 08/16/15 documented as of this encounter
--- OUTSIDE RECORDS SUMMARY | 2024-07-29 00:28 | XMS_ITS | Encounter Summary ---
Author Organization [facility] Address [facility] [place] [address] Care Team Providers Care Burrer Operator Name Role Phone Horacio Joshua MD Primary Care Provider [phone] Encounter Details Date Type Department Care Team (Late st Contact Info) Description 07/18/2013 3:00 PM EST Office [place] [phone] Chino Matta MD [facility] [address] CHL (conductive hearing loss) (Primary Dx); Tympanosclerosis involving combination of structures, bilateral Discharge Disposition: Home Social History Tobacco [...] Sign Reading Time Taken Comments Blood Pressure 116/58 07/18/2013 3:09 PM EST Pulse 72 07/18/2013 3:09 PM EST Temperature - - Respiratory Rate - - Oxygen Saturation - - Inhaled Oxygen Concentration - - Weight 27.9 kg (61 lb 6.4 oz) 07/18/2013 3:09 PM EST Height 128.3 cm (4' 2.5) 07/18/2013 3:09 PM EST Body Mass Index 16.93 07/18/2013 3:09 PM EST Body Mass Index Percentile 56.20% 07/18/2013 3:0 9 PM EST Growth Chart: [facility] (Girls, 2- 20 Years) documented in this encounter Progress Notes * Chino Matta MD - 07/18/2013 3:10 PM EST Subjective: In the presence of Dr Matta, I am recording the patients history of present illness. Linda PAREKH Patient ID: Ely Mahmood is a 8 y.o. female. This patient is seen in consult today at the request of their primary caregiver and the referring provider, Pernell Pena MD HPI Ely is a 8 y.o. ex- 29 week girl with history of chronic serous otitis media s/p PE tubes, speech delay, developmental delay. 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 Denies pain, drainage, tinnitus and dizziness. Review of Systems HENT: Positive for hearing loss. All other systems reviewed and are negative. Past Medical History Diagnosis Date ??? infant Ex-29 week ??? Speech delay ??? Developmental delay ??? Bronchopulmonary dysplasia ??? Chronic otitis media No family history on file. History Substance Use Topics ??? Smoking status: Never Smoker ??? Smokeless tobacco: Never Used Comment: No smker in home. ??? Alcohol Use: No Objective: Physical Exam Constitutional: She appears well-developed and well-nourished. She is active. HENT: Head: Normocephalic and atraumatic. No cranial deformity or facial anomaly. Right Ear: External ear, pinna and canal normal. No drainage. No mastoid tenderness. Tympanic membrane is abnormal. No middle ear effusion. No decreased hearing is noted. Left Ear: External ear, pinna and canal normal. No drainage. No mastoid tenderness. Tympanic membrane is abnormal. No middle ear effusion. Decreased hearing is noted. Nose: Nose normal. No mucosal edema, rhinorrhea, nasal deformity or congestion. Mouth/Throat: Mucous membranes are moist. Tongue is normal. No oral lesions. Tonsils are 1+ on the right. Tonsils are 1+ on the left.Oropharynx is clear. Pharynx is normal. Ears examined and cleaned with a binocular microscope. Right Ear: tympanosclerosis of inferior/ anterior TM, mobile TM, crusting on posterior TM at healedmyringotomy site Left Ear:ytmpanosclerosis posterior inferior TM with segmental atrophy inferior, Atrophic TM Is mobile Neck: Full passive range of motion without pain. Neck supple. Thyroid normal. No tenderness is present. Lymphadenopathy: No anterior cervical adenopathy, posterior cervical adenopathy, anterior occipitaladenopathy or posterior occipital adenopathy. Neurological: She is alert. The following audiological studies were reviewed by me: mild CHL The following imaging studies were reviewed by me (per mastoid): fluid / scar tissue in epitympanumand mastoid Assessment and Plan: Persistent relatively mild CHL in spite of tube and removal of scar tissue via mastoidectomy approach. Possible explanations include: tympanosclerosis of ossicles in middle ear, congenital stapes fixation, tympanosclerosis of oval window or recurrent adhesions of ossicle heads in mastoid. I havediscussed the options of a tympanoplasty with the patient and grandmother in detail along with alternatives of observation or hearing amplification. I have reviewed the operative procedure with diagrams and the risks and potential complications including SNHL. Her hearing loss is certainly not severe enough to warrant a stapedectomy. We both fell that a trial of a hearing aid is a reasonable option for now. RTC 6 mo with AE. , I have performed the service outlined in the notes from this encounter. I have reviewed the pertinent details in the chart, interviewed and review the HPI with the patient, and personally examined the patient. I agree with the documented history and I am responsible for the exam findings and management plan as documented in the note. Prabhu Matta MD documented in this encounter Plan of Treatment Upcoming Encounters Date Type Department Care Team (Late st Contact Info) Description 08/08/2024 9:00 AM EST Appointment [address] [phone] Umu Saucedo, RN 08/15/2024 10:45 AM EST TH Visit (TeleHealth) Obstetrics [place] [address] Dara Kelley MD [facility] DR OBSTET[place]ICS [place] [address] 11/25/2024 [place] [address] Dara Gonzalez MD [facility] OBSTETRICS [place] [address] 07/12/2025 1:40 PM EST Office Visit Ophthalmology at [address] Bina Agrawal OD [facility] [address] documented as of this encounter Visit Diagnoses Diagnosis CHL (conductive hearing loss)- Primary Unspecified conductive hearing loss Tympanosclerosis involving combination of structures, bilateral documented in this encounter Care Teams Burrer Operator Relationship Specialty Start Date End Date Horacio [place] MD PCP - General 05/07/10 08/16/15 documented as of this encounter
--- OUTSIDE RECORDS SUMMARY | 2024-07-29 00:28 | XMS_ITS | Encounter Summary ---
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 Social History Tobacco Use Types Packs/Day Years [...] Sign Reading Time Taken Comments Blood Pressure 103/75 04/05/2015 10:20 AM EDT Pulse 83 04/05/2015 10:20 AM EDT Temperature - - Respiratory Rate - - Oxygen Saturation - - Inhaled Oxygen Concentration - - Weight 36 kg (79 lb 4.8 oz) 04/05/2015 10:20 AM EDT actual Height 139.7 cm (4' 7) 04/05/2015 10:20 AM EDT actual Body Mass Index 18.43 04/05/2015 10:20 AM EDT Body Mass Index Percentile 61.91% 04/05/2015 10: 20 AM EDT Growth Chart: CDC (Girls, 2- 20 Years) documented in this encounter Progress Notes * Severo Hill MD - 04/05/2015 11:26 AM EDT DATE OF VISIT: 04/05/2015 Ely Mahmood is an 10-year 3-month-old girl last seen a year and a half ago for her congenital scoliosis with two very small curves in her thoracic spine that seem to balance out as the hemivertebra are on the opposite sides. Ely has had essentially no change in her curvature either clinically or radiographically over the past year. Her exam was quite benign today. She did not report any issues or problems. Review of systems was noncontributory. Physical exam today demonstrated a well-balanced spine with no tenderness. There was no significant deformity noted in thoracic spine but very small curves from the congenital hemivertebra. Range of motion was quite good without any pain. Neurologic exam was essentially unchanged. RADIOGRAPHS: Standard scoliosis x-ray today demonstrated very small thoracic curves due to hemivertebra in the [id number] thoracic region. The curves appear unchanged since the last set of x-rays year and a half ago. Ely remains significantly skeletally immature with a Risser sign of 0 but closed triradiate cartilages. ASSESSMENT: Ely Mahmood is an 10-year 3-month-old girl with a stable and mild congenital scoliosis in her thoracic spine with essentially no change in her curves over the past year and a half. I did spend 15 minutes with Ely and her caregiver today in [id number] discussion, examination, and review of her x-ray images, both new and old, with at least 10 minutes counseling them with respect to the above. At the end of the visit, we agreed to followup in one year with repeat scoliosis films. Ely and her caregiver understood and agree with the above plan. They asked appropriate questions today and all questions were answered. PLAN: Followup in one year with a repeat PA scoliosis film. documented in this encounter Plan of Treatment Upcoming Encounters Date Type Department Care Team (Late st Contact Info) Description 08/08/2024 9:00 AM EST Appointment [address] [address] Umu Saucedo RN 08/15/2024 10:45 AM EST TH Visit (TeleHealth) Obstetrics and Gynecology at [place] [phone] Dara Kelley MD [facility] DR [place] [address] 11/25/2024 Hospital [place] [address] Dara Gonzalez MD [facility] DR [place] [address] 07/12/2025 1:40 PM EST Office Visit Ophthalmology at [place] [address] Bina Agrawal OD [facility] [place] [address] documented as of this encounter Visit Diagnoses Diagnosis 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
--- OUTSIDE RECORDS SUMMARY | 2024-07-29 00:28 | XMS_ITS | Encounter Summary ---
Author Organization [facility] Address [facility] [place] [address] Care Team Providers Care Maori Physiotherapist Name Role Phone Horacio Joshua MD Primary Care Provider [phone] Encounter Details Date Type Department Care Team (Late st Contact Info) Description 10/29/2012 9:23 AM EDT - 10/29/2012 11:59 PM EDT Hospital Encounter XRay at [address] [place] [phone] Social History Tobacco Use Types Packs/Day Years Used Date Smoking Tobacco: Passive Smo ke Exposure - Never Smoker Smokeless Tobacco: Never Comments:cousin smokes outsi de Alcohol Use Standard Drinks/Week Comments No 0 [...] Description 08/08/2024 9:00 AM EST Appointment [address] [phone] Umu Saucedo RN 08/15/2024 10:45 AM EST TH Visit (TeleHealth) Obstetrics [place] [address] Dara Kelley MD [facility] OBSTETRICS [place] [address] 11/25/2024 [place] [address] Dara Gonzalez MD [facility] OBSTETRICS [place] [address] 07/12/2025 1:40 PM EST Office Visit Ophthalmology at [address] Bina Agrawal OD [facility] [place] [address] documented as of this encounter Visit Diagnoses Not on filedocumented in this encounter Care Teams Maori Physiotherapist Relationship Specialty Start Date End Date Horacio Joshua MD PCP - General 05/07/10 08/16/15 documented as of this encounter
--- OUTSIDE RECORDS SUMMARY | 2024-07-29 00:28 | XMS_ITS | Encounter Summary ---
Author Organization [facility] Address [facility] [place] [address] Care Team Providers Care Corrections Sergeant Name Role Phone Horacio Joshua MD Primary Care Provider [phone] Encounter Details Date Type Department Care Team (Late st Contact Info) Description 07/19/2013 External Results Audiology at [address] [phone] Tracy Childers, AUD Social History Tobacco Use Types Packs/Day Years [...] Info) Description 08/08/2024 9:00 AM EST Appointment [address] [phone] Umu Saucedo RN 08/15/2024 10:45 AM EST TH Visit (TeleHealth) Obstetrics [place] [address] Dara Kelley MD [facility] [place] [address] 11/25/2024 Hospital Encounter Birthing [place] [address] Dara Gonzalez MD [facility] [place] [address] 07/12/2025 1:40 PM EST Office Visit Ophthalmology at [address] Bina Agrawal OD [facility] [place] [address] documented as of this encounter Procedures Procedure Name Priority Date/Time Associated Diagnosis Comments AUDIOLOGY SCAN Routine 07/18/2013 documented in this encounter Results * Scan Doc: Audiology (07/18/2013) Tracy Childers AUD MEDIA MGR SCAN EX T ORDR/RSLT documented in this encounter Visit Diagnoses Not on filedocumented in this encounter Care Teams Corrections Sergeant Relationship Specialty Start Date End Date Horacio Joshua MD PCP - General 05/07/10 08/16/15 documented as of this encounter
--- OUTSIDE RECORDS SUMMARY | 2024-07-29 00:28 | XMS_ITS | Encounter Summary ---
Author Organization [facility] Address [place] [address] Care Team Providers Care Long Term Care Pharmacist Name Role Phone Horacio Joshua MD Primary Care Provider [phone] Encounter Details Date Type Department Care Team (Late st Contact Info) Description 09/01/2013 10:15 AM EDT Office Visit Audiology at [address] [phone] Tracy Childers, YASEMIN Conductive hearing loss, unilateral (Primary Dx) Discharge Disposition: Home Social History [...] Progress Notes * Tracy Childers, YASEMIN - 09/05/2013 4:02 PM EDT AUDIOLOGY SECTION HISTORY: Patient: Ely Mahmood Age: 8 y.o. 8 m.o. Type of Visit: Fitting of hearing aid amplification equipment Accompanied to appointment by: mother Ely's history includes the following: Prior audiologic history/ evaluations: several evaluations indicating fluctuating hearing loss withmiddle ear dysfunction. Most recently was 07/18/13 indicating mild conductive hearing loss with a sensorineural component at 2000Hz and middle ear dysfunction for both ears. /medical history: Former 29 weeker with a 5-6 week ICN stay. Familial history of childhood sensorineural hearing loss: none known. Ear health, middle ear infections: per parents, significant history of middle ear infections/fluid,most recently status-post PE tube placement which have extruded. Per Dr. 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 Auditory responsiveness: Grandmother report inconsistent responsiveness to sound. Speech-language/communication development: per report, age-appropriate. Educational progress/ support services: attends grade 3 with no supports in place ACTIONS TAKEN: Completed, demonstrated and/or discussed Except/Comments: General orientation Showed parts of the aid (and ear mold if applicable) Good Physical Fit Right vs. Left indicators Left only Insertion and removal Needed practice at home Manual Controls (VCW, push button, remote, etc) Batteries Type and life estimates Battery insertion and removal Signs of weakening batteries and use of air conditioning unit tester Precautions Care and maintenance Care kit External cleaning (tool/román, cloth, blower) Moisture control and storage (Dri-Aid) Feedback and troubleshooting Retention Verification of performance Gain, FR, and MPO adjusted appropriately via REM or S-REM Adequate gain before feedback with reserve gain available Subjective reactions to speech and own voice. MPO does not exceed UCL. . Counseling Amplification and the speech signal Expectations of auditory response and access with consistent use. Wearing schedule Impact of noise, reverberation, and distance Communication strategies: importance of visual cues, context, environment Billing and documentation New Hearing Instrument: Dispensing Information/paper work Warranty HIS service/plan for malfunctioning equipment S-REM in file for post repair comparison (use setting if no VC, full on if VC) RECOMMENDATIONS: 1. Continued consultation with Dr. Matta 2. Routine audiologic management to monitor hearing sensitivity and \ amplification. Hearing sensitivity should be monitored closely over time, with behavioral audiologic evaluations and amplification monitoring scheduled at approximately six month intervals at this time. 3. manager maritime use of amplification for the left ear. 4. Listening accommodations in conjunction with consistent use of amplification. Appropriate accommodations include: preferential seating in all settings: favoring use of the better- hearing ear (right ear for Ely). near to the teacher/speaker. away from sources of noise (e.g. ventilation blowers/fans, open windows/doorways). reduction in overall classroom background noise and reverberation levels. re/direction of attention toward the speaker before a spoken message is given. use of visual cues/ visual language to supplement spoken communication. positioning of speakers [id number] with Ely. 5. Use of FM amplification is recommended to address difficulties of listening in background noise,reverberation and across distance. 6. Appropriate educational support services for hearing loss should be included in a formal educational plan. Supports should include: XXX Use of FM amplification to address difficulties of listening in background noise, reverberation andacross distance, particularly while in the classroom. Consultation to [facility] through the [facility] This program provides consultative services to support students with hearing impairments. The [facility] can be reached at [phone]. 7. Use of hearing protection when in the presence of noise. Alize Martinez,[facility] Clinical Cooky Packer [facility] To the parents of Ely Mahmood [address] [facility] [address] MD Jimenez RAMIRES [address] [address] Quirino Bashir [address] [address] HEARING AID(S): HEARING AID LEFT Make/Model/Style [employer] Sense[employer] Pro BTE Casing Color blue Serial Number [id number] Battery Size/Battery Club 13 Invoice number / date [id number] 08/05/13 PROGRAM/SETTINGS Fitting Algorithm DSL Child Verification Method REM w/ RECD SREM for repair Programs general Disabled Features VC/program Other HEARING AID WARRANTY Original Fit Date 09/01/13 Current Status 09/05/16 EARMOLD (if BTE [place]) Lab [facility] Earmold / Slim tube / MADHAVI specifics 2/clear/blue glitter/no vent/ otoblast/ dri 13 T/ med canal Impression Date 07/28/13 Invoice # [id number] 08/01/2013 Return impressions documented in this encounter Plan of Treatment Upcoming Encounters Date Type Department Care Team (Late st Contact Info) Description 08/08/2024 9:00 AM EST Appointment [address] [phone] Umu Saucedo, RN 08/15/2024 10:45 AM EST TH Visit (TeleHealth) Obstetrics [place] [address] Dara Kelley MD [facility] DR OBSTETRICS [place] [address] 11/25/2024 [place] [address] Dara Gonzalez MD [facility] DR OBSTETRICS [place] [address] 07/12/2025 1:40 PM EST Office Visit Ophthalmology at [address] Bina Agrawal OD [facility] [address] documented as of this encounter Visit Diagnoses Diagnosis Conductive hearing loss, unilateral- Primary documented in this encounter Care Teams Long Term Care Pharmacist Relationship Specialty Start Date End Date Horacio Joshua MD PCP - General 05/07/10 08/16/15 documented as of this encounter
--- OUTSIDE RECORDS SUMMARY | 2024-07-29 00:28 | XMS_ITS | Encounter Summary ---
Author Organization [facility] Address [facility] [place] [address] Care Team Providers Care Business Operations Director Name Role Phone Horacio Joshua MD Primary Care Provider [phone] Reason for Visit * Reason Onset Date Comments Medication Refill 01/23/2015 Encounter Details Date Type Department Care Team (Late st Contact Info) Description 01/23/2015 [place] [phone] Severo Hill MD [facility] [place] [address] Scoliosis Social History Tobacco Use Types Packs/Day Years [...] Description 08/08/2024 9:00 AM EST Appointment [address] [address] Umu Saucedo, RN 08/15/2024 10:45 AM EST TH Visit (TeleHealth) Obstetrics [place] [address] Dara Kelley MD [facility] [place]ST[place] [address] 11/25/2024 [place] [address] Dara Gonzalez MD [facility] [place] [address] 07/12/2025 1:40 PM EST Office Visit Ophthalmology at [place] [address] Bina Agrawal OD [facility] [place] [address] documented as of this encounter Visit Diagnoses Diagnosis Scoliosis Scoliosis (and kyphoscoliosis), idiopathic documented in this encounter Care Teams Business Operations Director Relationship Specialty Start Date End Date Horacio Joshua MD PCP - General 05/07/10 08/16/15 documented as of this encounter
--- OUTSIDE RECORDS SUMMARY | 2024-07-29 00:28 | XMS_ITS | Encounter Summary ---
Author Organization [facility] Address [facility] [place] [place] [address] Care Team Providers Care Staff Command And Control Officer Name Role Phone Horacio Joshua MD Primary Care Provider [phone] Encounter Details Date Type Department Care Team (Late st Contact Info) Description 08/18/2011 2:16 PM EST - 08/18/2011 11:59 PM EST Hospital Encounter XRay at [address] [place] [phone] Scoliosis Social History Tobacco Use Types Packs/Day Years Used Date Smoking Tobacco: Never Smokeless Tobacco: Never Comments:No smoker in home. Alcohol Use Standard Drinks/Week Comments [...] Info) Description 08/08/2024 9:00 AM EST Appointment [facility] [address] [address] Umu Saucedo RN 08/15/2024 10:45 AM EST TH Visit (TeleHealth) Obstetrics [place] [phone] Dara Kelley MD [facility] OBSTETRICS [place] [address] 11/25/2024 Hospital Encounter [place] [phone] Dara Gonzalez MD [facility] OBSTETRICS [place] [address] 07/12/2025 1:40 PM EST Office Visit Ophthalmology at [place] [phone] Bina Agrawal OD [facility] [place] [address] documented as of this encounter Procedures Procedure Name Priority Date/Time Associated Diagnosis Comments XR SCOLIOSIS OR TOTAL SPINE 1 VIEW Routine 08/18/2011 2:33 PM EST Scoliosis documented in this encounter Results * XR scoliosis 1 view (08/18/2011 2:33 PM EST) Anatomical Region Laterality Modality C-spine, T-spine, L-spine N/A Radiog raphic Imaging 08/18/2011 2:33 PM EST Impressions 08/19/2011 5:32 PM EST IMPRESSION: Vertebral body, hemivertebrae at multiple levels with curvature in the mid thoracic region balanced. Similar in appearance to prior study. Narrative 08/19/2011 5:32 PM EST SCOLIOSIS, SINGLE-VIEW: COMPARISON EVALUATION: ??06/12/10. INDICATION: ? 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 ? FINDINGS: ??Again multiple hemivertebrae are noted T7 and T9. There is a dextroscoliotic curvature of the mid thoracic spine centered about T9-T10. 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 There is an apparent hemisacralization of S1. Scoliotic curvature measured between T7 and T11 at approximately 33 degrees. The curvature does not qualitatively appear changed. SI joints are intact. Procedure Note Whitley San MD - 08/19/2011 SCOLIOSIS, SINGLE-VIEW: COMPARISON EVALUATION: 06/12/10. 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 FINDINGS: Again multiple hemivertebrae are noted T7 and T9. There is a dextroscoliotic curvature of the mid thoracic spine centered about T9-T10. 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 There is an apparent hemisacralization of S1. Scoliotic curvature measured between T7 and T11 at approximately 33degrees. The curvature does not qualitatively appear changed. SI joints are intact. IMPRESSION IMPRESSION: Vertebral body, hemivertebrae at multiple levels with curvature in the mid thoracic region balanced. Similar in appearance to prior study. Yu Garay MD IMG DX ORDERABLES documented in this encounter Visit Diagnoses Diagnosis Scoliosis Scoliosis (and kyphoscoliosis), idiopathic documented in this encounter Care Teams Staff Command And Control Officer Relationship Specialty Start Date End Date Horacio Joshua MD PCP - General 05/07/10 08/16/15 documented as of this encounter
--- OUTSIDE RECORDS SUMMARY | 2024-07-29 00:28 | XMS_ITS | Encounter Summary ---
Author Organization [facility] Address [facility] [place] [address] Care Team Providers Care Water Taxi Driver Name Role Phone Horacio Joshua MD Primary Care Provider [phone] Encounter Details Date Type Department Care Team (Late st Contact Info) Description 04/02/2015 Orders [place] [address] Severo Hill MD [facility] [place] [address] Congenital scoliosis Social History Tobacco Use Types Packs/Day Years [...] Description 08/08/2024 9:00 AM EST Appointment [address] [address] Umu Saucedo, RN 08/15/2024 10:45 AM EST TH Visit (TeleHealth) Obstetrics and Gynecology at [place] [phone] Dara Kelley MD [facility] OBSTETRICS [place] [address] 11/25/2024 Hospital [place] [address] Dara Gonzalez MD [facility] OBSTETRICS [place] [address] 07/12/2025 1:40 PM EST Office [place] [address] Bina Agrawal OD [facility] [place] [address] documented as of this encounter Results * XR Scoliosis 1 [...] 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
--- OUTSIDE RECORDS SUMMARY | 2024-07-29 00:28 | XMS_ITS | Encounter Summary ---
Author Organization [facility] [place] [address] Care Team Providers Care Reference Test Clerk Name Role Phone Horacio Joshua MD Primary Care Provider [phone] Reason for Visit * Reason Onset Date Comments Triage 07/18/2014 Encounter Details Date Type Department Care Team (Late st Contact Info) Description 07/18/2014 Telephone Pediatrics at [address] [phone] Viki Obrien Triage Social History Tobacco Use Types Packs/Day [...] encounter Miscellaneous Notes * Telephone Encounter - Aura Urena RN - 07/18/2014 9:51 AM EST Grandmother says that since last Thursday Ely has had nausea, sore throat, fever, cough. No thermometer but has felt warm, so unsure about temp. Says now her sore throat feels better, not eating a whole lot. Drinking well. Still having nasal congestion and cough but otherwise has improved a good bit. Did not send her to school yesterday or today because she hates for her to be out in the cold air.Is going to speak with the principal to see if she needs to be seen by doctor to excuse the absence. Will call back if appointment is needed. Will continue home care for cough and cold. Grandmother is good with this plan. * Telephone Encounter - Viki Hendrix - 07/18/2014 8:35 AM EST Patient's grandmother called. THe patient has had nausea, headaches, low fevers and a cough/sore throat for several days now. She has been missing a lot of school. I offered appointments this afternoon which she declined. Please return her call at [phone] documented in this encounter Plan of Treatment Upcoming Encounters Date Type Department Care Team (Late st Contact Info) Description 08/08/2024 9:00 AM EST Appointment [address] [phone] Umu Saucedo RN 08/15/2024 10:45 AM EST TH Visit (TeleHealth) Obstetrics [place] [address] Dara Kelley MD [facility] OBSTETRICS [place] [address] 11/25/2024 Hospital [facility] [place] [address] Dara Gonzalez MD [facility] [place] [address] 07/12/2025 1:40 PM EST Office Visit [place] [address] Bina Agrawal, JONELLE [facility] [place] [address] documented as of this encounter Visit Diagnoses Not on filedocumented in this encounter Care Teams Reference Test Clerk Relationship Specialty Start Date End Date Horacio Joshua MD PCP - General 05/07/10 08/16/15 documented as of this encounter
--- OUTSIDE RECORDS SUMMARY | 2024-07-29 00:28 | XMS_ITS | Encounter Summary ---
Author Organization [facility] Address [facility] [place] [address] Care Team Providers Care Strategy Specialist Name Role Phone Horacio Joshua MD Primary Care Provider [phone] Encounter Details Date Type Department Care Team (Late st Contact Info) Description 10/19/2013 Telephone Audiology at [address] [phone] Tracy Childers AUD Social History Tobacco Use Types Packs/Day [...] encounter Miscellaneous Notes * Telephone Encounter - Tracy Childers AUD - 10/19/2013 3:51 PM EDT Received call from Grandmother, Mirna Anguiano, who reported that Ely' hearing aid squealed loudly in her ear and now has an earache. I asked if anyhting was put into her ear or caused trauma, and Ely denied this. She reported she just had her earmold in. I asked her grandmother to take the hearing aid out and give her hear a break and see if it was better tomorrow, if not she should call us back. She reported that she gave her some tylenol to help with ear pain. She also asked if magnets would cause any damage to the hearing aids, but did not clarify why. Melina uL HEARING AID(S): HEARING AID LEFT Make/Model/Style Oticon Sensei Pro BTE Casing Color blue Serial Number [id number] Battery Size/Battery Club 13 Invoice number / date [id number] 08/05/13 PROGRAM/SETTINGS Fitting Algorithm DSL Child Verification Method REM w/ RECD SREM for repair Programs general Disabled Features VC/program Other HEARING AID WARRANTY Original Fit Date 09/01/13 Current Status 09/05/16 EARMOLD (if BTE YORK) Lab [facility] Earmold / Slim tube / MADHAVI specifics 2/clear/blue glitter/no vent/ otoblast/ dri 13 T/ med canal Impression Date 07/28/13 Invoice # [id number] 08/01/2013 Return impressions documented in this encounter Plan of Treatment Upcoming Encounters Date Type Department Care Team (Late st Contact Info) Description 08/08/2024 9:00 AM EST Appointment [facility] [address] [address] Umu Saucedo RN 08/15/2024 10:45 AM EST TH Visit (TeleHealth) Obstetrics [place] [address] Dara Kelley MD [facility] OBSTETRICS [place] [address] 11/25/2024 Hospital [place] [phone] Dara Gonzalez MD [facility] OBSTETRICS [place] [address] 07/12/2025 1:40 PM EST Office Visit [place] [address] Bina Agrawal, JONELLE [facility] [place] [address] documented as of this encounter Visit Diagnoses Not on filedocumented in this encounter Care Teams Strategy Specialist Relationship Specialty Start Date End Date Horacio Joshua MD PCP - General 05/07/10 08/16/15 documented as of this encounter
--- OUTSIDE RECORDS SUMMARY | 2024-07-29 00:28 | XMS_ITS | Encounter Summary ---
Author Organization Count Includes [facility] Address [facility] [place] [address] Care Team Providers Care Water/Wastewater Project Manager Name Role Phone Horacio Joshua MD Primary Care Provider [phone] Encounter Details Date Type Department Care Team (Late st Contact Info) Description 07/28/2013 10:15 AM EST Office Visit Audiology at [address] [phone] Tracy Childers AUD Mixed hearing loss, unilateral (Primary Dx); Conductive hearing loss, unilateral Discharge Disposition: Home Social History Tobacco Use [...] of this encounter Progress Notes * Tracy Childers AUD - 07/28/2013 10:48 AM EST AUDIOLOGY SECTION HISTORY: Patient: Ely Mahmood Age: 8 y.o. 6 m.o. Type of Visit: Hearing Aid Selection Reason for visit: monitor hearing in light of recurrent middle ear health concerns and history of conductive hearing loss Coordinated with appointment with: Chino Matta MD, Esthetician Makeup Artist/Neurotologist Accompanied to appointment by: Grandmother, Mirna Graves's history includes the following: ?? Prior audiologic history/ evaluations: several evaluations indicating fluctuating hearing loss with middle ear dysfunction. Most recently was 07/18/13 indicating mild conductive hearing loss with a sensorineural component at 2000Hz and middle ear dysfunction for both ears. ?? /medical history: Former 29 weeker with a 5-6 week ICN stay. ?? Familial history of childhood sensorineural hearing loss: none known. ?? Ear health, middle ear infections: per parents, significant history of middle ear infections/fluid, most recently status-post PE tube placement which have extruded. Per Dr. 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 ?? Auditory responsiveness: Grandmother report inconsistent responsiveness to sound. ?? Speech-language/communication development: per report, age-appropriate. ?? Educational progress/ support services: attends grade 3 with no supports in place HEARING AID SELECTION: Including discussions in the following areas: Assessment of hearing problem areas: review of the audiogram and impact upon access to spoken communication. The family is aware that individuals with unilateral hearing loss demonstrate difficultiesin the following auditory tasks: sound localization hearing a weak/soft voice on the poorer hearing side hearing speech accurately when at a distance from the speaker and/or whenever background noise/reverberation (echoes) is present (e.g. classroom) With these things in mind, it is important that strategies be put into place to improve access to communication including: preferential seating; close to the speaker, favoring the better hearing ear, and away from any obvious noise sources (e.g. ventilation fans/blowers, open doorways/windows) when speaking to the individual, first get their attention, face them, and speak in a well-projected yet clear voice reduce the levels of background noise and reverberation whenever possible Discussed amplification needs: including style (e.g. BTE, slim tube), hearing aid features, connectivity (e.g. for possible/future FM use) Customization: earmold, color selection (e.g. hearing aid, earmold). Impression was taken without incident; the ear canal appeared clear pre- and post- impression. Ely chose a blue sparkle earmold Decision: In consideration of auditory demands, ear size, cosmetic/color preference and degree/configuration of hearing loss a BTE hearing aid (in blue color) was recommended and agreed upon. Fittingto take place once funding secure. Documentation: including Itemized fees form (completed with patient/family), care management note (completed following the visit). RECOMMENDATIONS: 1. Continued consultation with Dr. Matta 2. Routine audiologic management to monitor hearing sensitivity and \ amplification. Hearing sensitivity should be monitored closely over time, with behavioral audiologic evaluations and amplification monitoring scheduled at approximately six month intervals at this time. 3. Use of hearing aid amplification for the ;eft ear should be considered 4. Listening accommodations in conjunction with consistent [...] to supplement spoken communication. positioning of speakers [id number] with Ely. 5. Use of FM amplification is recommended to address difficulties of listening in background noise,reverberation and across distance. 6. Appropriate educational support services for hearing loss should be included in a formal educational plan. Supports should include: XXX Use of FM amplification to address difficulties of listening in background noise, reverberation andacross distance, particularly while in the classroom. Consultation to [facility] through the [facility] [employer] [facility] [facility] This program provides consultative services to support students with hearing impairments. The [employer] [facility] can be reached at [phone]. 7. Use of hearing protection when in the presence of noise. Alize Martinez,[facility] Clinical Bottle Filler [facility] Attachment: audiogram To the parents of Ely Mahmood [address] [facility] [address] MD Jimenez RAMIRES [address] [place] [address] Quirino Mckay [address] [place] [address] documented in this encounter Plan of Treatment Upcoming Encounters Date Type Department Care Team (Late st Contact Info) Description 08/08/2024 9:00 AM EST Appointment [facility] [address] [place] [address] Umu Saucedo, RN 08/15/2024 10:45 AM EST TH Visit (TeleHealth) Obstetrics [place] [address] Dara Kelley MD [facility] DR OBSTETRICS [place] [address] 11/25/2024 [place] [address] Dara Gonzalez MD [facility] DR OBSTETRICS [place] [address] 07/12/2025 1:40 PM EST Office Visit Ophthalmology at [place] [address] Bina Agrawal OD [facility] [place] [address] documented as of this encounter Visit Diagnoses Diagnosis Mixed hearing loss, unilateral- Primary Conductive hearing loss, unilateral documented in this encounter Care Teams Water/Wastewater Project Manager Relationship Specialty Start Date End Date Horacio Joshua MD PCP - General 05/07/10 08/16/15 documented as of this encounter
--- OUTSIDE RECORDS SUMMARY | 2024-07-29 00:28 | XMS_ITS | Encounter Summary ---
Author Organization [facility] [place] [address] Care Team Providers Care Dictating Machine Typist Name Role Phone Horacio Joshua MD Primary Care Provider [phone] Encounter Details Date Type Department Care Team (Late st Contact Info) Description 01/02/2012 Telephone [place] [phone] Arti Cardona Social History Tobacco Use Types Packs/Day Years [...] encounter Miscellaneous Notes * Telephone Encounter - Arti Myers - 01/02/2012 4:28 PM EDT Called patient to reschedule appointment due to Dr Jean antoine 02/23/12 documented in this encounter Plan of Treatment Upcoming Encounters Date Type Department Care Team (Late st Contact Info) Description 08/08/2024 9:00 AM EST Appointment [address] [place] [phone] Umu Saucedo, RN 08/15/2024 10:45 AM EST TH Visit (TeleHealth) Obstetrics and Gynecology at [place] [phone] Dara Kelley MD [facility] [address] [place] [address] 11/25/2024 Hospital Encounter Birthing [place] [phone] Dara Gonzalez MD [facility] OBSTETRICS [place] [address] 07/12/2025 1:40 PM EST Office Visit Ophthalmology at [place] [phone] Bina Agrawal OD [facility] [address] documented as of this encounter Visit Diagnoses Not on filedocumented in this encounter Care Teams Dictating Machine Typist Relationship Specialty Start Date End Date Horacio Joshua MD PCP - General 05/07/10 08/16/15 documented as of this encounter
--- OUTSIDE RECORDS SUMMARY | 2024-07-29 00:28 | XMS_ITS | Encounter Summary ---
Author Organization [facility] Address [facility] [place] [address] Care Team Providers Care Churn Driller Hel[place] Name Role Phone Horacio Joshua MD Primary Care Provider [phone] Reason for Visit * Reason Comments Otitis Media Right ear, has odor, and a white discharge, ? lost tubes, has also been swimming in a willis Encounter Details Date Type Department Care Team (Late st Contact Info) Description 01/14/2012 1:00 PM EDT Office Visit Pediatrics at [address] [address] Piper Ugarte, KINGSLEY [facility] [place] [address] Ear drainage (Primary Dx) Discharge Disposition: Home Social History [...] Pressure - - Pulse - - Temperature 36.5 ??C (97.7 ??F) 01/14/2012 12:57 PM E DT Respiratory Rate - - Oxygen Saturation - - Inhaled Oxygen Concentration - - Weight 23.9 kg (52 lb 12.8 oz) 01/14/2012 12:57 PM EDT Height - - Body Mass Index - - documented in this encounter Progress Notes * Piper Ugarte APRN - 01/14/2012 1:05 PM EDT Subjective: Patient ID: Ely Mahmood is a 7 y.o. female. HPI: in with g.mom 2 day hx ear draingae Now has odor Hx of pe tubes no fever Review of Systems As above Objective: Physical Exam Alert Heent: right tm with clear odorous drainage; sl tender at preauricular area Sl tender with exam Left tm nml Chest: no murmur Lungs CTA Assessment and Plan: Odorous discharge Discussed water avoidance Will start on floxin gtts today-if discomfort continue to call documented in this encounter Plan of Treatment Upcoming Encounters Date Type Department Care Team (Late st Contact Info) Description 08/08/2024 9:00 AM EST Appointment [address] [address] Umu Saucedo RN 08/15/2024 10:45 AM EST TH Visit (TeleHealth) Obstetrics [place] [address] Dara Kelley MD [facility] OBST[place]ICS [place] [address] 11/25/2024 Hospital [facility] [place] [address] Dara Gonzalez MD [facility] OBSTETRICS [place] [address] 07/12/2025 1:40 PM EST Office Visit [place] [address] Bina Agrawal, JONELLE [facility] [place] [address] documented as of this encounter Visit Diagnoses Diagnosis Ear drainage- Primary Otorrhea, unspecified documented in this encounter Care Teams Churn Driller Helper Relationship Specialty Start Date End Date Horacio Joshua MD PCP - General 05/07/10 08/16/15 documented as of this encounter
--- OUTSIDE RECORDS SUMMARY | 2024-07-29 00:28 | XMS_ITS | Encounter Summary ---
Author Organization [facility] [place] [address] Care Team Providers Care Sensor Operator Name Role Phone Horacio Joshua MD Primary Care Provider [phone] Reason for Visit * Reason Comments Scoliosis Encounter Details Date Type Department Care Team (Late st Contact Info) Description 08/18/2011 3:20 PM EST [place] [phone] Yu Garay MD Hemivertebra (Primary Dx) Discharge Disposition: Home Social History [...] - Inhaled Oxygen Concentration - - Weight 22.2 kg (49 lb) 08/18/2011 2:55 PM EST Height 118.1 cm (3' 10.5) 08/18/2011 2:55 PM ES T Body Mass Index 15.93 08/18/2011 2:55 PM EST Body Mass Index Percentile 56.00% 08/18/2011 2:5 5 PM EST Growth Chart: [facility] (Girls, 2- 20 Years) documented in this encounter Progress Notes * Lazarus Patton PA - 08/18/2011 3:31 PM EST Ely is a 6year-old girl who seen in 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 There was no evidence of progression of the curve magnitude at that time. She has continued to do very well, she has no back pain, or limitations. Sheis a very active young lady. They note that she intoes somewhat, but this does not effect her functionally. They are pleased with her progression. O: Comes in with a normal gait, able to heel and toe walk without difficulty. Able to single leg stand without difficulty. Able to reach forward and touch her toes, measures a 6 degree thoracic left curve on scoliometer. Normal sensation and motor function distally. No pain with ROM through the back. Mild femoral anteversion bilaterally. XR show an slight increase in degree of curvature through the thoracic hemivertebrae, but they are well balanced. No other interval changes. A: Stable exam P: Both Dr Garay and I had the chance to evaluate the pt today. She is doing very well, we reviewed her findings at length. Her mild femoral anteversion should not effect her significantly, and still could improve. Her back is doing well, and while it bears watching, we would not recommend any further intervention. Follow up in 1 year with pedi team, with repeat XR. documented in this encounter Plan of Treatment Upcoming Encounters Date Type Department Care Team (Late st Contact Info) Description 08/08/2024 9:00 AM EST Appointment [address] [address] Umu Saucedo RN 08/15/2024 10:45 AM EST TH Visit (TeleHealth) Obstetrics and Gynecology at [address] Dara Kelley MD [facility] OBSTETRICS [place] [address] 11/25/2024 Hospital Encounter Birthing [place] [address] Dara Gonzalez MD [facility] OBSTETRICS [place] [address] 07/12/2025 1:40 PM EST Office Visit Ophthalmology at [place] [address] Bina Agraawl OD [facility] [place] [address] documented as of this encounter Visit Diagnoses Diagnosis Hemivertebra- Primary documented in this encounter Care Teams Sensor Operator Relationship Specialty Start Date End Date Horacio Joshua MD PCP - General 05/07/10 08/16/15 documented as of this encounter
--- OUTSIDE RECORDS SUMMARY | 2024-07-29 00:28 | XMS_ITS | Encounter Summary ---
Author Organization [facility] Address [facility] [place] [address] Care Team Providers Care Wash Tank Tender Name Role Phone Horacio Joshua MD Primary Care Provider [phone] Encounter Details Date Type Department Care Team (Late st Contact Info) Description 09/19/2013 3:45 PM EDT Office Visit Audiology at [address] [phone] Tracy Childers, YASEMIN Conductive hearing loss, unilateral [...] Progress Notes * Tracy Childers, YASEMIN - 09/20/2013 8:09 AM EDT AUDIOLOGY SECTION HISTORY: Patient: Ely Mahmood [...] Former 29 weeker with a 5-6 week [facility] stay. Familial history of childhood sensorineural hearing [...] with no supports in place ACTIONS TAKEN: Ear checked for irritation, Ely reported her hearing aid is much more comfortable now that tubing has been trimmed slightly. Ely reports going through batteries quickly, but will track battery use and call if there is a problem. Ely was given a year's supply of batteries. RECOMMENDATIONS: 1. Please see previous reports for full recommendations 2. Return for regularly scheduled appointments. Alize Martinez,[facility] Clinical Repairer Controller Tester [facility] HEARING AID(S): HEARING AID LEFT Make/Model/Style O[employer]on Sensei Pro BTE Casing Color blue Serial Number [id number] Battery Size/Battery Club 13 Invoice number / date [id number] 08/05/13 PROGRAM/SETTINGS Fitting Algorithm DSL Child Verification Method REM w/ RECD SREM for repair Programs general Disabled Features VC/program Other HEARING AID WARRANTY Original Fit Date 09/01/13 Current Status 09/05/16 EARMOLD (if BTE [place]) Lab [facility] Earmold / Slim tube / MADHAVI specifics 2/clear/blue glitter/no vent/ otoblast/ dri 13 T/ med canal Impression Date 07/28/13 Invoice # [id number] 08/01/2013 Return impressions documented in this encounter Plan of Treatment Upcoming Encounters Date Type Department Care Team (Late st Contact Info) Description 08/08/2024 9:00 AM EST Appointment [address] [phone] Umu Saucedo, RN 08/15/2024 10:45 AM EST TH Visit (TeleHealth) [place]stetrics [place] [address] Dara Kelley MD [facility] [place] [address] 11/25/2024 Hospital Encounter Birthing [address] Dara Gonzalez MD [facility] [place] [address] 07/12/2025 1:40 PM EST Office Visit Ophthalmology at [place] [address] Bina Agrawal OD [facility] [place] [address] documented as of this encounter Visit Diagnoses Diagnosis Conductive hearing loss, unilateral- Primary documented in this encounter Care Teams Wash Tank Tender Relationship Specialty Start Date End Date Horacio Joshua MD PCP - General 05/07/10 08/16/15 documented as of this encounter
--- OUTSIDE RECORDS SUMMARY | 2024-07-29 00:28 | XMS_ITS | Encounter Summary ---
Author Organization [facility] Address [facility] [place] [address] Care Team Providers Care Pressure Tester Operator Name Role Phone Horacio Joshua MD Primary Care Provider [phone] Reason for Visit * Reason Onset Date Comments Other 09/16/2013 REMINDER APPT Encounter Details Date Type Department Care Team (Late st Contact Info) Description 09/16/2013 Telephone [place] [phone] Severo Hill MD [facility] [place] [address] Other (REMINDER APPT) Social History Tobacco Use Types Packs/Day Years [...] encounter Miscellaneous Notes * Telephone Encounter - Adriana Knowles - 09/23/2013 8:36 AM EDT Unable to contact. Letter sent. * Telephone Encounter - Margy Anthony - 09/16/2013 4:08 PM EDT Left message to call back and set up from reminder with xr. documented in this encounter Plan of Treatment Upcoming Encounters Date Type Department Care Team (Late st Contact Info) Description 08/08/2024 9:00 AM EST Appointment [address] [address] Umu Saucedo, RN 08/15/2024 10:45 AM EST TH Visit (TeleHealth) Obstetrics and Gynecology at [place] [phone] Dara Kelley MD [facility] DR OBSTETRICS [place] [address] 11/25/2024 Hospital [place] [address] Dara Gonzalez MD [facility] DR OBSTETRICS [place] [address] 07/12/2025 1:40 PM EST Office Visit Ophthalmology at [address] Bina Agrawal OD [facility] [place] [address] documented as of this encounter Visit Diagnoses Not on filedocumented in this encounter Care Teams Pressure Tester Operator Relationship Specialty Start Date End Date Horacio Joshua MD PCP - General 05/07/10 08/16/15 documented as of this encounter
--- OUTSIDE RECORDS SUMMARY | 2024-07-29 00:28 | XMS_ITS | Encounter Summary ---
Author Organization [facility] Address [facility] [place] [address] Care Team Providers Care Director Cardiology Name Role Phone Horacio Joshua MD Primary Care Provider [phone] Encounter Details Date Type Department Care Team (Late st Contact Info) Description 07/21/2011 External Results Audiology at [address] [address] Gracie Ford V, [facility] [place]IOLOG[place] [address] Social History Tobacco Use Types Packs/Day Years Used Date Smoking Tobacco: Never Smokeless Tobacco: Never Comments:No smoker in home. Alcohol Use Standard Drinks/Week Comments Not Asked 0 (1 standard drink = 0.6 oz [...] Description 08/08/2024 9:00 AM EST Appointment [address] [address] Umu Saucedo RN 08/15/2024 10:45 AM EST TH Visit (TeleHealth) Obstetrics and Gynecology at [place] [phone] Dara Kelley MD [facility] OBSTETRICS AND [place] [address] 11/25/2024 Hospital Encounter [place]thing [place] [phone] Dara Gonzalez MD [facility] OBSTETRICS AND [place] [address] 07/12/2025 1:40 PM EST Office Visit Ophthalmology at [place] [phone] Bina Agrawal OD [facility] [place] [address] documented as of this encounter Procedures Procedure Name Priority Date/Time Associated Diagnosis Comments AUDIOLOGY SCAN Routine 07/18/2011 documented in this encounter Results * Scan Doc: Audiology (07/18/2011) Gracie Pospychala V, MS MEDIA MGR SCAN EXT ORDR/RSLT documented in this encounter Visit Diagnoses Not on filedocumented in this encounter Care Teams Director Cardiology Relationship Specialty Start Date End Date Horacio Joshua MD PCP - General 05/07/10 08/16/15 documented as of this encounter
--- OUTSIDE RECORDS SUMMARY | 2024-07-29 00:28 | XMS_ITS | Encounter Summary ---
Author Organization Counts Include [facility] Address [facility] [place] [address] Care Team Providers Care Sealer Dry Cell Name Role Phone Horacio Joshua MD Primary Care Provider [phone] Reason for Visit * Reason Onset Date Comments Bumped Appointment 10/26/2013 Encounter Details Date Type Department Care Team (Late st Contact Info) Description 10/26/2013 Telephone [place] [phone] Severo Hill MD [facility] [place] [address] Bumped Appointment Social History Tobacco Use Types [...] encounter Miscellaneous Notes * Telephone Encounter - Nikia Kohler - 10/28/2013 2:03 PM EDT PATIENT RESCHEDULED. * Telephone Encounter - Nikia Kohler - 10/26/2013 12:57 PM EDT LMOM#1 to reschedule bumped appointment with Dr. Hill on 11/11/13. documented in this encounter Plan of Treatment Upcoming Encounters Date Type Department Care Team (Late st Contact Info) Description 08/08/2024 9:00 AM EST Appointment [address] [phone] Umu Saucedo, RN 08/15/2024 10:45 AM EST TH Visit (TeleHealth) Obstetrics and Gynecology at [place] [phone] Dara Kelley MD [facility] DR OBSTETRICS [place] [address] 11/25/2024 Hospital [place] [address] Dara Gonzalez MD [facility] DR OBSTETRICS [place] [address] 07/12/2025 1:40 PM EST Office [place] [address] Bina Agrawal OD [facility] [place] [address] documented as of this encounter Visit Diagnoses Not on filedocumented in this encounter Care Teams Sealer Dry Cell Relationship Specialty Start Date End Date Horacio Joshua MD PCP - General 05/07/10 08/16/15 documented as of this encounter
--- OUTSIDE RECORDS SUMMARY | 2024-07-29 00:28 | XMS_ITS | Encounter Summary ---
Author Organization [facility] Address [facility] [place] [address] Care Team Providers Care Cosmetics And Toiletries Salesperson Name Role Phone Horacio Joshua MD Primary Care Provider [phone] Reason for Visit * Reason Comments Scoliosis Encounter Details Date Type Department Care Team (Late st Contact Info) Description 10/29/2012 9:40 AM EDT Office [place] [phone] Severo Hill MD [facility] [place] [address] Scoliosis, congenital (Primary Dx) Discharge Disposition: Home Social History [...] - Inhaled Oxygen Concentration - - Weight 24.9 kg (55 lb) 10/29/2012 10:23 AM EDT Height 124.5 cm (4' 1) 10/29/2012 10:23 AM EDT Body Mass Index 16.11 10/29/2012 10:23 AM EDT Body Mass Index Percentile 48.36% 10/29/2012 10: 23 AM EDT Growth Chart: [facility] (Girls, 2- 20 Years) documented in this encounter Progress Notes * Severo Hill MD - 10/29/2012 12:50 PM EDT DATE OF VISIT: 10/29/2012 Ely Mahmood is an 7-year [id number] girl who has been followed here for sometime for 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 Ely has had two small curves associated with this hemivertebra and her thoracic spine that have been relatively stable in the 27- to 28-degree range and on her x-rays today, there appears to be no change in these curves in comparison to her x-rays one year ago. Ely has no complaints today. She is a healthy and active second grader who is not limited by her back at all. Her overall exam today is quite benign. She seems to have a well-balanced spine with no tenderness and no other specific issues. I did spend 25 minutes with Ely and her mother today in [id number] discussion, examination, and in review of x-ray images with them with at least 20 minutes counseling them with respect to Ely' current status and various options at this point in time. At the end of the visit, we agreed to follow up in one year with repeat scoliosis films. Ely and her mother asked appropriate today and all their questions were answered and they will follow up as mentioned above. documented in this encounter Plan of Treatment Upcoming Encounters Date Type Department Care Team (Late st Contact Info) Description 08/08/2024 9:00 AM EST Appointment [address] [phone] Umu Saucedo RN 08/15/2024 10:45 AM EST TH Visit (TeleHealth) Obst[place]s [place] [address] Dara Kelley MD [facility] OBSTETRICS [place] [address] 11/25/2024 Hospital [place] [address] Dara Gonzalez MD [facility] OBSTETRICS [place] [address] 07/12/2025 1:40 PM EST Office Visit Ophthalmology at [place] [address] Bina Agrawal OD [facility] [place] [address] documented as of this encounter Visit Diagnoses Diagnosis Scoliosis, congenital- Primary Congenital musculoskeletal deformity of spine documented in this encounter Care Teams Cosmetics And Toiletries Salesperson Relationship Specialty Start Date End Date Horacio Joshua MD PCP - General 05/07/10 08/16/15 documented as of this encounter
--- OUTSIDE RECORDS SUMMARY | 2024-07-29 00:28 | XMS_ITS | Encounter Summary ---
Author Organization [facility] Address [facility] [place] [address] Care Team Providers Care Certified Health Education Specialist Name Role Phone Horacio Joshua MD Primary Care Provider [phone] Reason for Visit * Reason Comments Follow-up Encounter Details Date Type Department Care Team (Late st Contact Info) Description 02/04/2012 3:00 PM EDT Follow-[place] [phone] Pernell Pnea MD [facility] [place] [address] Chronic otitis media with effusion (Primary Dx); Tympanic membrane perforation Discharge Disposition: Home Social History Tobacco Use [...] - - Weight 24.9 kg (55 lb) 02/04/2012 3:13 PM EDT Height 121.9 cm (4') 02/04/2012 3:13 PM EDT Body Mass Index 16.78 02/04/2012 3:13 PM EDT Body Mass Index Percentile 67.42% 02/04/2012 3:1 3 PM EDT Growth Chart: [facility] (Girls, 2- 20 Years) documented in this encounter Progress Notes * Pernell Pena MD - 02/04/2012 3:39 PM EDT Pediatric Otolaryngology Follow-Up Note Date of Visit: 02/04/2012 Patient: Ely Mahmood ([id number]; 2005) Reason for Visit: Ely is a 7 y.o. ex-29 week girl with history of chronic otitis media s/pPE tubes, speech delay, developmental delay. History of bronchopulmonary dysplasia, congenital scoliosis. 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 Interval History: Last here in Jul 2011 with extruding plastic Natacha and small right perforation, extruded left PE tube and thick TM. No otologic complaints except right otorrhea, otalgia a week or two ago - responded to drops. Physical Examination: Vitals: Height 121.9 cm (4'), weight 24.948 kg (55 lb). General: Age-appropriate interactive behavior. Breathing comfortably without stridor, stertor. No retractions. No acute distress. Face: Full and symmetric facial movement. No dysmorphic facial features. Eyes: Periocular structures and conjunctiva healthy without lesions. Pupils are equal, round, and reactive to light. Extraocular movement is full and intact. No dysconjugate gaze. No evidence of nystagmus. Ears: Auricles symmetric without lesions. External auditory canals clear. Right tympanic membrane with small posterior perforation 5-10%; aerated right middle ear. Left tympanic membrane thick, opaque with small inferior thin mobile segment; mobility decreased; aerated left middle ear. Nose: Patent anteriorly with adequate airflow, healthy pink mucosa. Septum is midline without significant deviation. Mouth: Lips and gingiva pink, moist, without lesions. Age-appropriate dentition healthy. Tongue andfloor of mouth soft without lesions or masses. Hard palate without lesions. Pharynx: Soft palate without lesions. Uvula is intact without evidence of submucus cleft palate. Oropharynx symmetric. Tonsils 1-2+ Neck: Soft, supple, without significant lymphadenopathy. Trachea midline without deviation. Procedure - Otologic Microscope Examination: External auditory canal visualized under the operating microscope. Left PE tube removed from EAC. Findings as noted above. Audiogram Jan 2012: Normal thresholds except low-freq mild CHL with flat, large tracing. Left normal with small ECV, decreased mobility. Left thresholds improved. Jul 2011: Left low-frequency mild conductive loss relatively unchanged compared to October 2010 with small ECV, flat tracing. Right thresholds remain unchanged with flat, large ECV tracing. October 2010: Slight improvement in left mild-moderate upsloping left conductive hearing loss ([id number]-ru-[id number]). Normal right thresohlds. Flat large ECV tracing on the right, small ECV on the left with patent PE tube (stable). Feb 2010: Stable moderate low-freq conductive loss on the left side; mid- frequency thresholds improved. Flat tympanograms with small left ECV, large right ECV. Feb 27, 2009: Left moderate low-frequency, mild mid-frequency conductive hearing loss (upsloping);flat tracing with ECV 1mL. Examination of left side demonstrates apparently patent PE tube in position with aerated left middle ear. Right mild low-frequency low with flat tracing, ECV 4.7mL. (KM) September 15, 2008: Left mild upsloping conductive hearing loss; flat tracing with ECV 0.7mL. On examination, cannot see through lumen of PE tube, though TM appears dull, nonmobile with possible mucoid efusion (myringosclerosis obscures view). Normal right thresholds with flat tracing, ECV 4.4mL. (CN) Apr 21, 2008: Left mild upsloping conductive hearing loss; flat tracing with ECV 0.7mL. Normal rightthresholds with flat tracing, ECV 3.3mL. (EP,LM) Mar 25, 2007: Left moderate low-frequency, rmul-us-[id number] mid-frequency conductive hearing loss; left tracing reduced with 0.9mL ECV. Right normal thresholds with flat tracing, ECV 3.3mL. (CN) January 01, 2007: Left mild low-frequency conductive hearing loss with rounded tracing, ECF 1.0mL. Right normal thresholds with flat, large ECV tracing. (CN) Aug 07, 2006: [place] normal. Left tracing flat with small pre-tube ECV. Right flat with large ECV. (EP, LM) Mar 30, 2006: [place] borderline/mild loss. Left and right tracings flat, no ECV recorded. Procedure - Otologic Microscope Examination: External auditory canal visualized under the operating microscope. Findings as noted above. Impression: Improvement in left conductive hearing loss to normal thresholds now. Small posterior right TM perforation after plasticPersistent low ECV tracing on the left side. 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 Left middle ear was well-aerated at time of PE tube exchange in October 2008, appears well-aerated today with patent PE tube. History of chronic otitis media s/p adenoidectomy and new PE tubes October 2008 (Natacha). Speech delay,developmental delay. Ex-29 week girl with resolved bronchopulmonary dysplasia, congenital scoliosis, mild grade I subglottic stenosis. Plan: Follow extruding right PE tube for closure of small perforation seen today. Follow for any progressive hearing loss that might suggest fibrosis or ossicular fixation after tympanomastoidectomy. Follow-up with AE in 8 months. Pernell Pean MD, FAAP Pediatric Otolaryngology [facility] ([facility]) [facility] documented in this encounter Plan of Treatment Upcoming Encounters Date Type Department Care Team (Late st Contact Info) Description 08/08/2024 9:00 AM EST Appointment [address] [address] Umu Saucedo, RN 08/15/2024 10:45 AM EST TH Visit (TeleHealth) Obstetrics [place] [address] Dara Kelley MD [facility] OBSTETRICS [place] [address] 11/25/2024 Hospital [place] [address] Dara Gonzalez MD [facility] OBSTETRICS [place] [address] 07/12/2025 1:40 PM EST Office Visit Ophthalmology at [place] [address] Bina Agrawal OD [facility] [place] [address] documented as of this encounter Visit Diagnoses Diagnosis Chronic otitis media with effusion- Primary Other and unspecified chronic nonsuppurative otitis media Tympanic membrane perforation Perforation of tympanic membrane, unspecified documented in this encounter Care Teams Certified Health Education Specialist Relationship Specialty Start Date End Date Horacio Joshua MD PCP - General 05/07/10 08/16/15 documented as of this encounter
--- OUTSIDE RECORDS SUMMARY | 2024-07-29 00:28 | XMS_ITS | Encounter Summary ---
Author Organization [facility] Address [facility] [place] [address] Care Team Providers Care Addictions Therapist Name Role Phone Horacio Joshua MD Primary Care Provider [phone] Encounter Details Date Type Department Care Team (Latest Contact Info) Description 09/06/2013 1:30 PM EDT Office Visit Audiology at [address] [phone] Tracy Hansen AUD Conductive hearing loss, unilateral with unrestricted hearing on the contralateral side; Wears hearing aid Discharge Disposition: Home Social History Tobacco Use [...] of this encounter Progress Notes * Tracy Hansen MA - 09/06/2013 1:45 PM EDT AUDIOLOGY SECTION HISTORY: Patient: Ely Mahmood Age: 8 y.o. 8 m.o. Type of Visit: hearing aid check given concerns regarding physical fit/comfort. Ely is followed bymy colleague, Dr. Tracy Childers who is away from the clinic today. Ely presents with a history of left mild, conductive hearing loss for which a hearing aid was fit on 09.01.2013. Her photostat operator helper is Dr. Matta given her significant middle ear health history. Historically, Ely's right ear hearing has been within normal limits. Ely also is a former 29 weeker withICN stay. Please refer to Eyl's medical record for any additional background information as needed. Accompanied by: Grandmother, who, along with Ely, contributed to the following information: ?? Primary concern is the physical fit of the hearing aid behind the ear. It has been not been possible for Ely to build her left hearing aid use given her complaint that it 'hurts' after a short while with use. ?? Educational placement / supports: attends 3rd grade; historically no formal supports in place. Today, the family reported that they shared the spare hearing aid care kit with the staff at school. (Grandmother had a few questions regarding the kit which were answered today.) The family believes that an inservice to the school is being scheduled with the [employer] [facility]. ACTIONS TAKEN: ?? Otoscopic check: left only unremarkable. ?? Hearing aid check - see equipment list below: ?? Earmold: appeared to fit well. The tubing was trimmed to help with the physical fit which Ely reported improved overall comfort. (Tested this by encouraging her to jump in the room - continued comfort reported.) ?? Hearing aid: appeared in good condition upon visual inspection; noted that the battery door closure is stiff but not certain if this is related to being newer instrument as no obvious other variable evident. Listening and verifit checks good. No programming changes made. Grandmother asked a few questions regarding care of the instrument (related to dry aid - jr - kit as well as the items in the extra care kit that she gave to the school) which were answered. ?? Anticipated area to follow-up with: independent insertion of hearing instrument. Comfort of the instrument behind the ear. (NOTE: no evidence of sore seen behind ear) BTE battery door closure - appeared a little stiff today. RECOMMENDATIONS: ?? As planned, hearing aid check next week with managing contracts manager, Dr. Childers. Tracy Hansen MA, CCC-A, [facility] [address] (v) [phone] / (f) [phone] EQUIPMENT LIST: HEARING AID RIGHT LEFT Make/Model/Style NONE Oticon / Sensei Pro / BTE Casing Color blue Serial Number [id number] Battery Size/Battery Club 13 Invoice number / date [id number] 08/05/13 PROGRAM/SETTINGS Fitting Algorithm DSL Child Verification Method REM w/ RECD; SREM on file Programs P1: general Disabled Features VC/program Other HEARING AID WARRANTY Original Fit Date 09/01/13 Current Status 09/05/16 EARMOLD (if BTE [place]) Lab [facility] Earmold / Slim tube / MADHAVI specifics 2/clear/blue glitter/no vent/ otoblast/ dri 13 T/ med canal Impression Date 07/28/13 Invoice # [id number] 08/01/2013 Return impressions to clinic documented in this encounter Plan of Treatment Upcoming Encounters Date Type Department Care Team (Late st Contact Info) Description 08/08/2024 9:00 AM EST Appointment [address] [address] Umu Saucedo, RN 08/15/2024 10:45 AM EST TH Visit (TeleHealth) Obstetrics [place] [phone] Dara Kelley MD [facility] OBSTET[place] [address] 11/25/2024 Hospital [place] [phone] Dara Gonzalez MD [facility] OBST[place] [address] 07/12/2025 1:40 PM EST Office [place] [address] Bina Agrawal, [facility] [place] [address] documented as of this encounter Visit Diagnoses Diagnosis Conductive hearing loss, unilateral with unrestricted hearing on the contralateral side Conductive hearing loss, unilateral Wears hearing aid Other postprocedural status documented in this encounter Care Teams Addictions Therapist Relationship Specialty Start Date End Date Horacio Joshua MD PCP - General 05/07/10 08/16/15 documented as of this encounter
--- OUTSIDE RECORDS SUMMARY | 2024-07-29 00:28 | XMS_ITS | Encounter Summary ---
Author Organization [facility] [place] [address] Care Team Providers Care Fancy Needleworker Name Role Phone Horacio Joshua MD Primary Care Provider [phone] Reason for Visit * Reason Onset Date Comments Other 01/12/2012 Encounter Details Date Type Department Care Team (Late st Contact Info) Description 01/12/2012 Telephone Pediatrics at [address] [phone] Judy Neri MD Other Social History Tobacco Use Types Packs/Day [...] encounter Miscellaneous Notes * Telephone Encounter - Umu Alva RN - 01/14/2012 10:50 AM EDT Drainage and odor from right ear. No pain or fever. Hx of ear infections and has PE tube still on right side. appt made. * Telephone Encounter - Hortencia Ching - 01/14/2012 10:42 AM EDT CALLING JESICA BACK * Telephone Encounter - Isabel Harding RN - 01/12/2012 1:31 PM EDT message * Telephone Encounter - Isabel Harding RN - 01/12/2012 11:52 AM EDT Busy * Telephone Encounter - Jim Rhodes - 01/12/2012 11:36 AM EDT HAS AN ODOR FROM ONE EAR, BUT NO EAR PAIN. JIM JORDAN documented in this encounter Plan of Treatment Upcoming Encounters Date Type Department Care Team (Late st Contact Info) Description 08/08/2024 9:00 AM EST Appointment [address] [address] Umu Saucedo RN 08/15/2024 10:45 AM EST TH Visit (TeleHealth) Obstetrics [place] [phone] Dara Kelley MD [facility] OBSTETRICS [place] [address] 11/25/2024 [place] [phone] Dara Gonzalez MD [facility] OBSTETRICS [place] [address] 07/12/2025 1:40 PM EST Office [place] [address] Bina Agrawal OD [facility] [place] [address] documented as of this encounter Visit Diagnoses Not on filedocumented in this encounter Care Teams Fancy Needleworker Relationship Specialty Start Date End Date Horacio Joshua MD PCP - General 05/07/10 08/16/15 documented as of this encounter
--- OUTSIDE RECORDS SUMMARY | 2024-07-29 00:28 | XMS_ITS | Encounter Summary ---
Author Organization [facility] Address [facility] [place] [address] Care Team Providers Care Mica Miner Blasting Name Role Phone Horacio Joshua MD Primary Care Provider [phone] Encounter Details Date Type Department Care Team (Late st Contact Info) Description 09/05/2013 Telephone Audiology at [address] [phone] Tracy Childers, YASEMIN Social History Tobacco Use Types Packs/Day Years [...] Telephone Encounter - Tracy Childers AUD - 09/05/2013 4:30 PM EDT Received call from Mirna Anguiano, Ely' grandmother reporting that Ely is having pain behind her ear from her new hearing aid. We disussed that she may need a longer tube on her earmold. She was scheduled for an appointment with Tracy Hansen MA on 09/06/13 at 1:30 PM. HEARING AID(S): HEARING AID LEFT Make/Model/Style Oticon Sensei Pro BTE Casing Color blue Serial Number [id number] Battery Size/Battery Club 13 Invoice number / date [id number] 08/05/13 PROGRAM/SETTINGS Fitting Algorithm DSL Child Verification Method REM w/ RECD SREM for repair Programs general Disabled Features VC/program Other HEARING AID WARRANTY Original Fit Date 09/01/13 Current Status 09/05/16 EARMOLD (if BTE [place]) Lab [facility] Earmold / Slim tube / MADHAVI specifics 2/clear/blue glitter/no vent/ otoblast/ dri 13 T/ med canal Impression Date 07/28/13 Invoice # [id number] 08/01/2013 Return impressions YASEMIN Lu documented in this encounter Plan of Treatment Upcoming Encounters Date Type Department Care Team (Late st Contact Info) Description 08/08/2024 9:00 AM EST Appointment [facility] [address] [address] Umu Saucedo, RN 08/15/2024 10:45 AM EST TH Visit (TeleHealth) Obstetrics [place] [address] Dara Kelley MD [facility] OBSTETRICS [place] [address] 11/25/2024 Hospital [place] [address] Dara Gonzalez MD [facility] OBSTETRICS [place] [address] 07/12/2025 1:40 PM EST Office [place] [address] Bina Agrawal OD [facility] [place] [address] documented as of this encounter Visit Diagnoses Not on filedocumented in this encounter Care Teams Mica Miner Blasting Relationship Specialty Start Date End Date Horacio Joshua MD PCP - General 05/07/10 08/16/15 documented as of this encounter
--- OUTSIDE RECORDS SUMMARY | 2024-07-29 00:28 | XMS_ITS | Encounter Summary ---
Author Organization [facility] Address [facility] [place] [address] Care Team Providers Care Inspector Chief Name Role Phone Horacio Joshua MD Primary Care Provider [phone] Encounter Details Date Type Department Care Team (Latest Contact Info) Description 10/16/2014 2:15 PM EDT Office Visit Audiology at [address] [phone] Tracy aHnsen AUD Conductive hearing loss, unilateral with unrestricted [...] Progress Notes * Tracy Hansen MA - 10/16/2014 3:10 PM EDT AUDIOLOGY SECTION HISTORY: Patient: Ely Mahmood Age: 9 y.o. 9 m.o. Reason for Visit: ongoing monitoring of hearing and amplification needs given history of unilateralhearing loss. Today's visit in conjunction with follow-up to ethnoarchaeology professor, Dr. Matta. Ely presents with a history of left mild, conductive hearing loss for which a hearing aid was fit on 09.01.2013. Historically her managing director surgical has been Melina Avalos, who relocated earlier this year to another state. Ely also is known to [facility] ethnoarchaeology professor, Dr. Matta, given her significant middle ear health history. Historically, Ely's right ear hearing has been within normal limits. Ely also is a former 29 weeker with [facility] stay. Please refer to Ely's medical record for any additional background information as needed. Accompanied by: Grandmother and guardian, Mirna Anguiano, who, along with Ely, contributed to the following information: ?? No overt change to hearing suspect. ?? Left hearing aid use continues but has been somewhat sporadic given concerns regarding it being 'too loud' in some noisier settings such as the school bus, gym and cafeteria. Ely denied any physical fit concerns. Historically she has used the hearing aid primarily at school. ?? Educational placement / supports: attends 4th grade; consultative services by the Deaf & Hard of Hearing Program through [facility]. EVALUATION: ?? Audiologic evaluation - see audiogram: right within normal limits; left with mild conductive hearing loss; appeared stable when compared with last audiogram of Jul 2013. Tympanogram measures suggestive of TM perf on the right and middle ear dysfunction on the left. ?? Hearing aid check - see equipment list below: ?? Earmold: appeared to fit well. Tubing replaced. ?? Hearing aid: appeared in good condition upon visual inspection. Listening and verifit checks good. Given reported concerns regarding it being too loud in some settings, updated REM w/personal RECD. Slight programming changes made to better approximate DSL targets and to address patient comfort. Ely reported that the hearing aid sounded better following the adjustment. ?? Anticipated area to follow-up with: achieving 'full-time' use which may be a player in how the hearing aid sounds in those noisier/reverberant settings.. IMPRESSIONS: stable hearing in each ear. Left hearing aid appeared to be working well; slight adjustment made which Ely appeared to find helpful. Today's findings shared with family as well as the following recommendations. RECOMMENDATIONS: ?? As planned, otologic follow-up to Dr. Matta. ?? Return to audiology in approximately 6 months for ongoing monitoring of hearing and amplification; sooner if concerns arise before that time. Left hearing aid use with goal being 'full-time' during all waking hours save for water activities (e.g. Bathing, swimming); provided there are no medical contraindications. Strategies to aid in communication access given unilateral hearing loss including: preferential seating in all settings, favoring use of the better-hearing ear, near to the teacher/speaker, and away from sources of noise (e.g. ventilation blowers/fans, open windows/doorways). reduction in overall background noise and reverberation levels whenever possible. re/direction of attention toward the speaker before a spoken message is given. use of visual cues/ visual language to supplement spoken communication. positioning of speakers abno-ol-hsxo with listener. ?? Given this child's educationally significant hearing loss, it is recommended that a options advisor and/or benzene still utility operator be part of their educational program through consultative and/or direct services (reportedly in place through [facility]). These professionals provide services that may include the following: observation, consultation, training to the school staff on technology, recommendations for acoustical modifications and best practices in educating students with hearing loss, technical support for equipment, when needed, and/or direct instruction to the student. Tracy Hansen MA, CCC-A, [facility] Door To Door Fundraising Collector [place] [id number] (v) [phone] / (f) [phone] Attachment: audiogram CC: Parents of Ely Mahmood [address] [place] [address] HORACIO JOSHUA MD / PCP Attn: School Nurse [address] [address] Deaf & Hard of Hearing Program [address] [address] EQUIPMENT LIST: HEARING AID RIGHT LEFT Make/Model/Style NONE [employer] / Sensei Pro / BTE Casing Color blue Serial Number [id number] Battery Size/Battery Club 13 Invoice number / date [id number] 08/05/13 PROGRAM/SETTINGS Fitting Algorithm DSL Child Verification [...] med canal Impression Date 07/28/13 Invoice # [id number] 08/01/2013 Return impressions to clinic documented in this encounter Plan of Treatment Upcoming Encounters Date Type Department Care Team (Late st Contact Info) Description 08/08/2024 9:00 AM EST Appointment [address] [address] Umu Suacedo, RN 08/15/2024 10:45 AM EST TH Visit (TeleHealth) Obstetrics and Gynecology at [place] [phone] Dara Kelley MD [facility] OBSTETRICS [place] [address] 11/25/2024 Hospital [place] [address] Dara Gonzalez MD [facility] OBSTETRICS AND GYNECOLOGY [place], [place] [phone] 07/12/2025 1:40 PM EST Office Visit Ophthalmology at [place] [phone] Bina Agrawal OD [facility] [place] [address] documented as of this encounter Visit Diagnoses Diagnosis Conductive hearing loss, unilateral with unrestricted hearing on the contralateral side Conductive hearing loss, unilateral Wears hearing aid Other postprocedural status documented in this encounter Care Teams Inspector Chief Relationship Specialty Start Date End Date Horaico Joshua MD PCP - General 05/07/10 08/16/15 documented as of this encounter
--- OUTSIDE RECORDS SUMMARY | 2024-07-29 00:28 | XMS_ITS | Encounter Summary ---
Author Organization [facility] [place] [address] Care Team Providers Care Nut Tightener Name Role Phone Horacio Joshua MD Primary Care Provider [phone] Encounter Details Date Type Department Care Team (Late st Contact Info) Description 02/04/2012 2:30 PM EDT Follow-Up Audiology at [address] [phone] Tracy Hansen AUD Conductive hearing loss, unilateral (Primary Dx) Discharge [...] Progress Notes * Tracy Hansen MA - 02/04/2012 3:17 [place] [address] (phone), (fax) Ely Mahmood was seen on 02/04/2012 for an audiologic evaluation in conjunction with follow-up to Brigid Rojas. RESULTS: Audiogram WNL bilaterally save for mild conductive hearing loss in the right ear at 250 Hz. Please refer to the scanned audiogram for any additional findings, impressions, and recommendations. documented in this encounter Plan of Treatment Upcoming Encounters Date Type Department Care Team (Late st Contact Info) Description 08/08/2024 9:00 AM EST Appointment [address] [phone] Umu Saucedo RN 08/15/2024 10:45 AM EST TH Visit (TeleHealth) [place]s [place] [address] Dara Kelley MD [facility] OBSTETRICS [place] [address] 11/25/2024 [place] [address] Dara Gonzalez MD [facility] OBSTETRICS [place] [address] 07/12/2025 1:40 PM EST Office Visit Ophthalmology at [place] [phone] Bina Agrawal OD [facility] [address] documented as of this encounter Visit Diagnoses Diagnosis Conductive hearing loss, unilateral- Primary documented in this encounter Care Teams Nut Tightener Relationship Specialty Start Date End Date Horacio Joshua MD PCP - General 05/07/10 08/16/15 documented as of this encounter
--- OUTSIDE RECORDS SUMMARY | 2024-07-29 00:28 | XMS_ITS | Encounter Summary ---
Author Organization [facility] Address [facility] [place] [address] Care Team Providers Care Oracle Sql Developer Name Role Phone Horacio Joshua MD Primary Care Provider [phone] Encounter Details Date Type Department Care Team (Late st Contact Info) Description 11/10/2013 3:29 PM EDT - 11/10/2013 11:59 PM EDT Hospital Encounter XRay at [address] [place] [phone] Scoliosis Social History Tobacco Use Types Packs/Day [...] 08/08/2024 9:00 AM EST Appointment [facility] Strong [address] [phone] Umu Saucedo RN 08/15/2024 10:45 AM EST TH Visit (TeleHealth) Obstetrics and Gynecology at [place] [phone] Dara Kelley MD [facility] [place]ST[place] [address] 11/25/2024 Hospital Encounter Birthing [place] [phone] Dara Gonzalez MD [facility] OBST[place] [address] 07/12/2025 1:40 PM EST Office [place] [address] Bina Agrawal OD [facility] [place] [address] documented as of this encounter Procedures Procedure Name Priority Date/Time Associated Diagnosis Comments XR SCOLIOSIS OR TOTAL SPINE 1 VIEW Routine 11/10/2013 3:43 PM EDT Scoliosis documented in this encounter Results * XR scoliosis 1 view (11/10/2013 3:43 PM EDT) Anatomical Region Laterality Modality C-spine, T-spine, L-spine N/A Radiog raphic Imaging 11/10/2013 3:43 PM EDT Narrative 11/10/2013 4:02 PM EDT Examination SCOLIOSIS SINGLE VIEW Clinical History SCOLIOSIS Comparison October 2012 ?? Technique Findings The dextroscoliosis of the thoracic spine, apex at t 9-T10 level, is 29 degrees, formally 32 degrees. ??The levoscoliosis of the lower spine, centered at L 1 is approximately 18 degrees, formally 21 degrees. 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 abhinav vertebrae are present at T7 and T9 levels. Unchanged 12th right-sided and 11 left-sided ribs. ??The left 5th rib is attenuated or atrophic anteriorly. ?? 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 ?? Procedure Note Quiana Harding MD - 11/10/2013 Examination SCOLIOSIS SINGLE VIEW Clinical History SCOLIOSIS Comparison October 2012 Technique Findings The dextroscoliosis of the thoracic spine, apex at t 9-T10 level, is 29 degrees, formally 32 degrees. The levoscoliosis of the lower spine,centered at L 1 is approximately 18 degrees, formally 21 degrees. Unchanged vertebral body anomaly with butterfly vertebral body at theupper thoracic levels. abhinav vertebrae are present at T7 and T9 levels. Unchanged 12th right-sided and 11 left-sided ribs. The left 5th rib is attenuated or atrophic anteriorly. 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 Severo Hill MD IMG DX ORDERABLES documented in this encounter Visit Diagnoses Diagnosis Scoliosis Scoliosis (and kyphoscoliosis), idiopathic documented in this encounter Care Teams Oracle Sql Developer Relationship Specialty Start Date End Date Horacio Joshua MD PCP - General 05/07/10 08/16/15 documented as of this encounter
--- OUTSIDE RECORDS SUMMARY | 2024-07-29 00:28 | XMS_ITS | Encounter Summary ---
Author Organization [facility] Address [facility] [place] [address] Care Team Providers Care Loss Prevention Consultant Name Role Phone Horacio Joshua MD Primary Care Provider [phone] Reason for Visit * Reason Comments Well Child 7 yr Encounter Details Date Type Department Care Team (Late st Contact Info) Description 03/03/2012 10:45 AM EDT Office Visit Pediatrics at [address] [phone] Piper Ugarte APRN [facility] [place] [address] Well child check (Primary Dx) Discharge Disposition: Home Social [...] Sign Reading Time Taken Comments Blood Pressure 111/55 03/03/2012 11:18 AM EDT Pulse - - Temperature - - Respiratory Rate - - Oxygen Saturation - - Inhaled Oxygen Concentration - - Weight 24.3 kg (53 lb 9.2 oz) 2 11:18 AM EDT Height 121.8 cm (3' 11.95) 03/03/2012 11:18 AM EDT Body Mass Index 16.38 03/03/2012 11:18 AM EDT Body Mass Index Percentile 59.91% 03/03 11:18 AM EDT Growth Chart: CDC (Girls, 2- 20 Years) documented in this encounter Progress Notes * Piper Ugarte, DRUG SAFETY COORDINATOR - 03/03/2012 11:20 AM EDT Subjective: Patient ID: Ely Mahmood is a 7 y.o. female. [facility] Well Child Visit CC: 7 y.o. Well child check Here with: Concerns: Well Child Problem List: Patient Active Problem List Diagnoses ??? Hemivertebra ??? Speech delay ??? Bronchopulmonary dysplasia ??? 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 ??? CIS - Poor sleep ??? CIS - Acute otitis media Recurrent, s/p tubes ??? CIS - Constipation Miralax ??? CIS - Bacterial infection of skin furuncles-MRSA ??? CIS - Healthcare Maintenance History of 29 week gestational age prematurity ??? 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 Normal renal U/S. 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 Followed annually by Dr. Garay. Interval History: Diet:drinks: milk-some;yogurt; does not like some meats: hotdogs occasional restaurant hamburgers Elimination: nml Activity: likes school-good gp of friends Sleep: 8:30pm- 6am Behavior: School/daycare/developmentl: [employer] -2nd grade Other/Issues: dds-lost one tooth last noc ROS: as above / other: Developmental Surveillance: Completed per PCT Internationals guidelines on gross motor, fine motor, communication, problem solving,personal/social Issues identified: None Screening Assessments: Age appropriate screening assessments completed per PCT Internationals, including hearing, vision, anemia, blood pressure, Issues identified: None Social/Family History: Issues identified: None 03/03/12 Lives with pgp-since onr yr of age MGP : maritime pilot mom PGF: employed at [employer] Father has health issues-visits on a regular basis Family: father with a learning disability Parents with hx of drug addiction Vision/Hearing Screen: No exam data present 02/04/12 Audiogram WNL bilaterally save for mild conductive hearing loss in the right ear at 250 Hz. Vitals: Filed Vitals: 03/03/12 1118 BP: 111/55 Height: 121.8 cm (3' 11.95) Weight: 24.3 kg (53 lb 9.2 oz) 33.15% of growth percentile based on ztktwf-lwx-bng. 12.23% of growth percentile based on gadjacd-btv-lei. Body mass index is 16.38 kg/(m^2). 59.94% of growth percentile based on BMI-for-age. PHYSICAL EXAM Gen: Alert and active, NAD Skin: Warm, pink, no rashes; loss of skin color macula on right upper thigh Head/Neck: NC/AT, neck supple, no LAD Eyes: PERRLA, clear conjunctiva ENT: MMM, OP clear, TMs wnl, no rhinnorhea or congestion CV: RRR, NL S1S2, no murmur, 2+ pulses Resp: CTAB, no WOB, no wheezes/crackles Abd: +BS, soft, NT/ND, no HSM/masses appreciated Genitalia: NL Trunk/Spine: wnl Neuro: Grossly wnl Extremities: FROM; right wrist with soft n/t palpable lump; mid arm with pea size non-tender papule[palpated under the skin -no erythema - A/P: Well child, normal growth and development Encouraged own place of sleep Declined flu vaccine gangion of right wrist; sm papule same arm-mis arm most likely a fat cyst-no intervention at this time-wait, if becomes bothersome to call Healthcare Maintenance: BMI assessed Lift the lip dental screen completed Age appropriate anticipatory guidance given per Bright Futures guidelines Immunizations: Immunization record reviewed and immunizations given after informed consent and provider discussion: Follow up: Return for well child visit per Bright Futures Guidelines. HPI Review of Systems Objective: Physical Exam Assessment and Plan: No problem-specific visit notes found for this encounter. documented in this encounter Plan of Treatment Upcoming Encounters Date Type Department Care Team (Late st Contact Info) Description 08/08/2024 9:00 AM EST Appointment [facility] Strong [address] [phone] Umu Saucedo RN 08/15/2024 10:45 AM EST TH Visit (TeleHealth) Obstetrics [place] [address] Dara Kelley MD [facility] OBSTETRICS [place] [address] 11/25/2024 Hospital Encounter Birthing [place] [phone] Dara Gonzalez MD [facility] OBSTETRICS [place] [address] 07/12/2025 1:40 PM EST Office Visit Ophthalmology at [place] [phone] Bina Agrawal OD [facility] [place] [address] documented as of this encounter Visit Diagnoses Diagnosis Well child check- Primary Routine or child health check documented in this encounter Care Teams Loss Prevention Consultant Relationship Specialty Start Date End Date Horacio Joshua MD PCP - General 05/07/10 08/16/15 documented as of this encounter
--- OUTSIDE RECORDS SUMMARY | 2024-07-29 00:28 | XMS_ITS | Encounter Summary ---
Author Organization [facility] Address [facility] [place] [address] Care Team Providers Care Photogravure Press Operator Name Role Phone Horacio Joshua MD Primary Care Provider [phone] Encounter Details Date Type Department Care Team (Late st Contact Info) Description 05/17/2013 9:30 AM EST Follow-Up Audiology at [address] [phone] Tracy Childers, YASEMIN Conductive hearing loss, unilateral [...] this encounter Progress Notes * Tracy Childers, YASMEIN - 05/17/2013 11:00 AM [place] [address] Ely Mahmood , 8 y.o. 4 m.o. was seen on 05/17/2013 for an audiologic evaluation. Please refer to the scanned audiogram listed under SCANDOC for findings, impressions and recommendations. Itmay take up to 24 hours for the audiogram to be scanned. Enclosure: Audiogram Tracy Herrmann, [place] [address] documented in this encounter Plan of Treatment Upcoming Encounters Date Type Department Care Team (Late st Contact Info) Description 08/08/2024 9:00 AM EST Appointment [address] [phone] Umu Saucedo RN 08/15/2024 10:45 AM EST TH Visit (TeleHealth) Obstetrics [place] [address] Dara Kelley MD [facility] DR OBSTETRICS [place] [address] 11/25/2024 Hospital [place] [address] Dara Gonzalez MD [facility] DR OBSTETRICS [place] [address] 07/12/2025 1:40 PM EST Office Visit Ophthalmology at [address] Bina Agrawal OD [facility] [address] documented as of this encounter Visit Diagnoses Diagnosis Conductive hearing loss, unilateral- Primary documented in this encounter Care Teams Photogravure Press Operator Relationship Specialty Start Date End Date Horacio Joshua MD PCP - General 05/07/10 08/16/15 documented as of this encounter
--- OUTSIDE RECORDS SUMMARY | 2024-07-29 00:28 | XMS_ITS | Encounter Summary ---
Author Organization [facility] Address [facility] [place] [address] Care Team Providers Care Fixed Income Portfolio Manager Name Role Phone Horacio Joshua MD Primary Care Provider [phone] Encounter Details Date Type Department Care Team (Late st Contact Info) Description 05/17/2013 External Results Audiology at [address] [phone] Tracy Childers, AUD Social History [...] Description 08/08/2024 9:00 AM EST Appointment [address] [phone] Umu Saucedo RN 08/15/2024 10:45 AM EST TH Visit (TeleHealth) Obstetrics [place] [address] Dara Kelley MD [facility] OBSTETRICS [place] [address] 11/25/2024 Hospital Encounter Birthing [place] [address] Dara Gonzalez MD [facility] OBSTETRICS [place] [address] 07/12/2025 1:40 PM EST Office Visit Ophthalmology at [address] Bina Agrawal OD [facility] [place] [address] documented as of this encounter Procedures Procedure Name Priority Date/Time Associated Diagnosis Comments AUDIOLOGY SCAN Routine 05/17/2013 documented in this encounter Results * Scan Doc: Audiology (05/17/2013) Tracy Childers AUD MEDIA MGR SCAN EX T ORDR/RSLT documented in this encounter Visit Diagnoses Not on filedocumented in this encounter Care Teams Fixed Income Portfolio Manager Relationship Specialty Start Date End Date Horacio Joshua MD PCP - General 05/07/10 08/16/15 documented as of this encounter
--- OUTSIDE RECORDS SUMMARY | 2024-07-29 00:28 | XMS_ITS | Encounter Summary ---
Author Organization [facility] [place] [address] Care Team Providers Care Automation Qtp Tester Name Role Phone Horacio Joshua MD Primary Care Provider [phone] Reason for Visit * Reason Onset Date Comments Questions 02/15/2015 Encounter Details Date Type Department Care Team (Late st Contact Info) Description 02/15/2015 Telephone Pediatrics at [address] [phone] Jesús Baeza, RN Questions Social History Tobacco Use Types Packs/Day [...] Telephone Encounter - Jesús Baeza RN - 02/15/2015 4:01 PM EDT Guardian calling to find out if Ely needs a PE. Last [facility] 04/25/13. [facility] will schedule. documented in this encounter Plan of Treatment Upcoming Encounters Date Type Department Care Team (Late st Contact Info) Description 08/08/2024 9:00 AM EST Appointment [address] [phone] Umu Saucedo RN 08/15/2024 10:45 AM EST TH Visit (TeleHealth) Obstetrics [place] [address] Dara Kelley MD [facility] [place] [address] 11/25/2024 Hospital [place] [address] Dara Gonzalez MD [facility] [place] [address] 07/12/2025 1:40 PM EST Office Visit Ophthalmology at [place] [address] Bina Agrawal OD [facility] [place] [address] documented as of this encounter Visit Diagnoses Not on filedocumented in this encounter Care Teams Automation Qtp Tester Relationship Specialty Start Date End Date Horacio Joshua MD PCP - General 05/07/10 08/16/15 documented as of this encounter
--- OUTSIDE RECORDS SUMMARY | 2024-07-29 00:28 | XMS_ITS | Encounter Summary ---
Author Organization [facility] Address [facility] [place] [address] Care Team Providers Care Lab Animal Technician Name Role Phone Horacio Joshua MD Primary Care Provider [phone] Encounter Details Date Type Department Care Team (Late st Contact Info) Description 02/04/2012 External Results Audiology at [address] [phone] Tracy Hansen, YASEMIN Social History Tobacco Use Types Packs/Day [...] Info) Description 08/08/2024 9:00 AM EST Appointment [address] [phone] Umu Saucedo RN 08/15/2024 10:45 AM EST TH Visit (TeleHealth) Obstetrics [place] [address] Dara Kelley MD [facility] [place] [address] 11/25/2024 Hospital Encounter Birthing Rishi [address] Dara Gonzalez MD [facility] [place] [address] 07/12/2025 1:40 PM EST Office Visit Ophthalmology at [address] Bina Agrawal OD [facility] OPHTHALMOLOGY [place] [phone] documented as of this encounter Procedures Procedure Name Priority Date/Time Associated Diagnosis Comments AUDIOLOGY SCAN Routine 02/04/2012 documented in this encounter Results * Scan Doc: Audiology (02/04/2012) Tracy L Nulton AUD MEDIA MGR SCAN EXT ORDR/RSLT documented in this encounter Visit Diagnoses Not on filedocumented in this encounter Care Teams Lab Animal Technician Relationship Specialty Start Date End Date Horacio Joshua MD PCP - General 05/07/10 08/16/15 documented as of this encounter
--- OUTSIDE RECORDS SUMMARY | 2024-07-29 00:28 | XMS_ITS | Encounter Summary ---
Author Organization [facility] [place] [address] Care Team Providers Care Software Build Engineer Name Role Phone Horacio Joshua MD Primary Care Provider [phone] Reason for Visit * Reason Comments Cough here with Grandmom Per laly Bradley 1 week cough runny stuffy nose headches stomaches decreased appetite fever Encounter Details Date Type Department Care Team (Late st Contact Info) Description 07/21/2014 2:05 PM EST Office Visit Pediatrics at [address] [phone] Alondra Quach MD Viral URI with cough Discharge Disposition: Home Social History Tobacco Use [...] Pressure - - Pulse - - Temperature 37.1 ??C (98.8 ??F) 07/21/2014 2:31 PM ES T Respiratory Rate 24 07/21/2014 2:31 PM EST Oxygen Saturation - - Inhaled Oxygen Concentration - - Weight 33.5 kg (73 lb 12.8 oz) 07/21/2014 2:31 P M EST Height - - Body Mass Index - - documented in this encounter Patient Instructions * Patient Instructions* Alondra Quach MD - 07/21/2014 3:06 PM EST Images from the original note were not included. [facility] Frequent Abdominal Pain: After Your Child's Visit Your Care Instructions Frequent abdominal pain is belly pain that occurs at least 3 times over 3 months. Sometimes the pain is linked to foods your child eats. But most of the time the pain cannot be explained. Sometimes the pain is so bad that your child cannot do his or her normal activities. Stress, anger,or excitement can make the pain worse. Your doctor may use the words functional abdominal pain syndrome or recurrent abdominal pain to describe the problem. It can be hard when your child is in pain and the doctor can find no cause, even when tests are done. Even if you cannot make the pain go away, there are some things you can do to help your child manage it. Follow-up care is a atkins part of your child's treatment and safety. Be sure to make and go to all appointments, and call your doctor if your child is having problems. It's also a good idea to know your child's test results and keep a list of the medicines your child takes. How can you care for your child at home? ?? Keep your child doing normal activities as much as possible. Many children are able to keep their pain under control if they remember it is just the usual bellyache when pain starts. ?? Be sure your child has regular meals and snack times. ?? Be sure your child has a regular bedtime so he or she gets enough sleep. ?? Keep a symptom diary. This can help you see if there are events or emotions that make your child's pain worse. Write down what your child ate, drank, or felt before the pain began. ?? Help your child reduce stress. Breathing exercises and relaxation techniques can help. ?? Try cognitive-behavioral therapy. You and your child can work with a counselor to learn how to do this therapy. It can help your child cope with pain by changing the way he or she thinks. How yourchild thinks can affect his or her feelings. When should you call for help? Call your doctor now or seek immediate medical care if: ?? Your child has a fever and belly pain. ?? Your child has severe pain that is different from his or her usual belly pain. Watch closely for changes in your child's health, and be sure to contact your doctor if: ?? Your child's pattern of pain or discomfort changes. ?? You have questions or concerns about your child's belly pain. Where can you learn more? Visit our health information library at [email or web address] You can also view health information on [employer], your personal patient account. Log in or sign up today. Enter T738 in the search box to learn more about Frequent Abdominal Pain: After Your Child's Visit. ?? [id number] [employer]. Care instructions adapted under license by [facility]. This care instruction is for use with your licensed healthcare professional. If you have questions about a medical condition or this instruction, always ask your healthcare professional. [employer] disclaims any warranty or liability for your use of this information. Content Version: 10.3.106663; Current as of: November 16, 2013 documented in this encounter Progress Notes * Edgar Martinez MD - 07/21/2014 3:58 PM EST The case was discussed at the time of the visit or immediately after the visit. The assessment and plan were formulated in discussion with me and I agree with them as documented. I have reviewed the history, physical exam, assessment and plan with the resident. * Alondra Quach MD - 07/21/2014 2:07 PM EST Assessment: Likely viral illness. Well-appearing with non-focal exam, well hydrated. Also c/o chronic abdominal pain that causes her to miss school. Will schedule f/u appointment to discuss abdominalpain after this acute illness resolves. Plan: - tylenol or ibuprofen as needed for fevers or headaches - drink plenty of fluids - keep food and symptom diary for abdominal pain - return to clinic in 2-3 weeks to evaluate abdominal pain Chief Complaint: Chief Complaint Patient presents with ??? Cough here with Grandmom Guardian Mirna 1 week cough runny stuffy nose headches stomaches decreased appetite fever History of Present Illness: - Headaches, sore throat, stomach aches, congestion, cough - Started 1 week ago - grandma gives flu and cold medication, helps symptoms - Tactile fever, last felt 3 days ago - went to school Thursday, but didn't feel well yesterday - grandma is having symptoms now - no vomiting or diarrhea - nausea in morning and at night, improves with nap - decreased appetite, drinking normally, voiding normally - no daily medications - also c/o chronic abdominal pain, causes her to miss school, regular BMs, no blood Review of Systems: See HPI PMH: Patient Active Problem List Diagnosis Code ??? CIS - Acute otitis media T999.0 ??? CIS - Bacterial infection of skin T999.0 ??? CIS - Chronic mastoiditis T999.0 ??? 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 CIS - Constipation T999.0 ??? CIS - Healthcare Maintenance T999.0 ??? CIS - Poor sleep T999.0 ??? Speech delay 315.39 ??? Bronchopulmonary dysplasia 770.7 ??? Hemivertebra 756.14 ??? Wears hearing aid V45.89 ??? Conductive hearing loss, unilateral with unrestricted hearing on the contralateral side 389.05 Vital Signs: Temp(Src) 37.1 ??C (98.8 ??F) (Oral) Resp 24 Wt 33.475 kg (73 lb 12.8 oz) PHYSICAL EXAM: General: well-appearing, talkative Skin: wwp, on right forearm is <1cm mobile rubbery nodule under skin HEENT: NC/AT, PERRL, OP clear and without erythema, TMs pearly barakat with significant scarring b/l, no cervical lymphadenopathy Chest: CTAB, W/R/R CV: Normal S1 and S2, RRR, no M/R/G Abd: soft, non-tender, non-distended, no masses or HSM Ext: capillary refill<2seconds Alondra Quach MD documented in this encounter Plan of Treatment Upcoming Encounters Date Type Department Care Team (Late st Contact Info) Description 08/08/2024 9:00 AM EST Appointment [address] [address] Umu Saucedo RN 08/15/2024 10:45 AM EST TH Visit (TeleHealth) Obstetrics and Gynecology at [place] [phone] Dara Kelley MD [facility] DR OBSTETRICS [place] [address] 11/25/2024 [place] [address] Dara Gonzalez MD [facility] DR OBSTETRICS [place] [address] 07/12/2025 1:40 PM EST Office [place] [address] Bina Agrawal OD [facility] [address] documented as of this encounter Visit Diagnoses Diagnosis Viral URI with cough Acute upper respiratory infections of unspecified site documented in this encounter Care Teams Software Build Engineer Relationship Specialty Start Date End Date Horacio Joshua MD PCP - General 05/07/10 08/16/15 documented as of this encounter
--- OUTSIDE RECORDS SUMMARY | 2024-07-29 00:28 | XMS_ITS | Encounter Summary ---
Author Organization [facility] Address [facility] [place] [address] Care Team Providers Care Backup Sawyer Name Role Phone Horacio Joshua MD Primary Care Provider [phone] Reason for Visit * Reason Onset Date Comments Prior Authorization 08/12/2013 COVERED BENE FIT Encounter Details Date Type Department Care Team (Late st Contact Info) Description 08/12/2013 Telephone Audiology at [address] [phone] Tracy Childers, YASEMIN Prior Authorization (COVERED BENEFIT) Social History Tobacco Use Types Packs/Day Years [...] encounter Miscellaneous Notes * Telephone Encounter - Jordyn Aparicio - 08/12/2013 1:38 PM EST The patient currently has active coverage through [place] Medicaid with aid category A5 which does cover hearing aids. Per the [place] Medicaid fee schedule no auth is required for CPT:V5257 documented in this encounter Plan of Treatment Upcoming Encounters Date Type Department Care Team (Late st Contact Info) Description 08/08/2024 9:00 AM EST Appointment [address] [phone] Umu Saucedo, RN 08/15/2024 10:45 AM EST TH Visit (TeleHealth) Obstetrics and Gynecology at [place] [phone] Dara Kelley MD [facility] DR OBSTETRICS [place] [address] 11/25/2024 Hospital Encounter Birthing [place] [address] Dara Gonzalez MD [facility] DR OBSTETRICS [place] [address] 07/12/2025 1:40 PM EST Office Visit Ophthalmology at [place] [address] Bina Agrawal OD [facility] [place] [address] documented as of this encounter Visit Diagnoses Not on filedocumented in this encounter Care Teams Backup Sawyer Relationship Specialty Start Date End Date Horacio Joshua MD PCP - General 05/07/10 08/16/15 documented as of this encounter
--- OUTSIDE RECORDS SUMMARY | 2024-07-29 00:28 | XMS_ITS | Encounter Summary ---
Author Organization [facility] Address [facility] [place] [address] Care Team Providers Care Ticket Collector Or Usher Name Role Phone Horacoi Joshua MD Primary Care Provider [phone] Encounter Details Date Type Department Care Team (Late st Contact Info) Description 10/19/2014 External Results [place] [phone] Tracy Hansen AUD Social History Tobacco Use Types Packs/Day [...] Description 08/08/2024 9:00 AM EST Appointment [address] [phone] Umu Saucedo RN 08/15/2024 10:45 AM EST TH Visit (TeleHealth) Obstetrics [place] [address] Dara Kelley MD [facility] OBSTETRICS [place] [address] 11/25/2024 Hospital Encounter Birthing [place] [phone] Dara Gonzalez MD [facility] OBSTETRICS AND GYNECOLOGY [place] [phone] 07/12/2025 1:40 PM EST Office Visit Ophthalmology at [place] [phone] Bina Agrawal OD [facility] [place] [address] documented as of this encounter Procedures Procedure Name Priority Date/Time Associated Diagnosis Comments AUDIOLOGY SCAN Routine 10/16/2014 documented in this encounter Results * Scan Doc: Audiology (10/16/2014) Tracy Hansen AUD MEDIA MGR SCAN EXT ORDR/RSLT documented in this encounter Visit Diagnoses Not on filedocumented in this encounter Care Teams Ticket Collector Or Usher Relationship Specialty Start Date End Date Horacio Joshua MD PCP - General 05/07/10 08/16/15 documented as of this encounter
--- OUTSIDE RECORDS SUMMARY | 2024-07-29 00:28 | XMS_ITS | Encounter Summary ---
Author Organization [facility] Address [facility] [place] [address] Care Team Providers Care Trailer Assembler Name Role Phone Horacio Joshua MD Primary Care Provider [phone] Reason for Visit * Reason Onset Date Comments Abdominal Pain 08/18/2013 Encounter Details Date Type Department Care Team (Late st Contact Info) Description 08/18/2013 Telephone Pediatrics at [address] [phone] Jesús Ely, RN Abdominal Pain Social History Tobacco Use Types Packs/Day [...] Miscellaneous Notes * Telephone Encounter - Jesús Ely RN - 08/18/2013 12:16 PM EST Last week on vacation having trouble falling asleep, would wake up in the middle of the night and be up all night. This week was supposed to go back to school on Thursday, wasn't feeling well. Sleptall day yesterday and today, was able to sleep last night. Appetite hasn't been that good. No vomiting or diarrhea. + stool. No fever. Mom says she wanted to go school, but she wasn't feeling well. Has had this trouble before, called the doctor, and then GM made her go to school, and it went away. Advised without specific symptoms it may be harder for Ely to go back to school if she stays out even longer. May just need to get back into her routine, which she had gotten out of during vacation. Will likely feel better once gets back to school and friends. GM in agreement with plan, will call if eorrisome symptoms develop. * Telephone Encounter - Jesús Ely RN - 08/18/2013 12:15 PM EST Message copied by JESÚS ELY on ThuAug 18, 2013 12:15 PM ------ Message from: ARGELIA WRIGHT Created: ThuAug 18, 2013 11:29 AM Contact: Grandmother/Guardian Mirna Anguiano PCP: Caller Name: Mirna Reason for Call: Sleeping difficulties, waking up (last week). This week c/o stomach ache. Phone number: [phone] Judy Palencia documented in this encounter Plan of Treatment Upcoming Encounters Date Type Department Care Team (Late st Contact Info) Description 08/08/2024 9:00 AM EST Appointment [address] [phone] Umu Saucedo RN 08/15/2024 10:45 AM EST Visit (TeleHealth) Obstetrics [place] [address] Dara Kelley MD [facility] OBSTETRICS [place] [address] 11/25/2024 Hospital [place] [address] Dara Gonzalez MD [facility] OBSTETRICS [place] [address] 07/12/2025 1:40 PM EST Office Visit Ophthalmology at [place] [phone] Bina Agrawal OD [facility] [address] documented as of this encounter Visit Diagnoses Not on filedocumented in this encounter Care Teams Trailer Assembler Relationship Specialty Start Date End Date Horacio Joshua MD PCP - General 05/07/10 08/16/15 documented as of this encounter
--- OUTSIDE RECORDS SUMMARY | 2024-07-29 00:28 | XMS_ITS | Encounter Summary ---
Author Organization [facility] Address [facility] [place] [address] Care Team Providers Care Funder Name Role Phone Horacio Joshua MD Primary Care Provider [phone] Reason for Visit * Reason Comments Scoliosis Encounter Details Date Type Department Care Team (Late st Contact Info) Description 11/10/2013 3:15 PM EDT Office Visit [place] [address] Severo Hill MD [facility] [place] [address] Scoliosis (Primary Dx) Discharge Disposition: Home Social History [...] - Inhaled Oxygen Concentration - - Weight 29.6 kg (65 lb 3.2 oz) 11/10/2013 3:49 PM EDT Height 129 cm (4' 2.8) 11/10/2013 3:49 PM EDT Body Mass Index 17.76 11/10/2013 3:49 PM EDT Body Mass Index Percentile 65.69% 11/10/2013 3:4 9 PM EDT Growth Chart: [facility] (Girls, 2- 20 Years) documented in this encounter Progress Notes * Severo Hill MD - 11/10/2013 4:05 PM EDT DATE OF VISIT: 11/10/2013. Ely Mahmood is a 0-ffpz-67-month-old girl seen back today for a congenital scoliosis check for two hemivertebrae, one on the left and one on the right in the T7 and T9 region. Ely has no complaints of pain today and no issues to report. REVIEW OF SYSTEMS: Noncontributory today. PHYSICAL EXAMINATION: Physical exam today was essentially unchanged from the last visit one year ago. There was no appreciable deformity in the thoracic spine. Range of motion was quite good without pain and the neurologic exam was essentially unchanged. 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 Skeletal maturity today was graded at Risser 0 with open triradiate cartilages. 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 I did spend 15 minutes with Ely and her mother today in [id number] discussion, examination, and review of her x-ray images both new and old with at least 10 minutes counseling them with respect to Ely' current status and various options at this point in time going forward. At the end of our discussion, we agreed to continue observation at this time given that Lynda curve has been stable over time and does not seem to be causing problems currently. There is some continued risk of progression with growth and therefore appropriate monitoring is warranted. We did recommend repeat evaluation in one year with a PA scoliosis film at that time. Ely and her mother understood and agreed with the above plan. They asked appropriate questions today and all questions were answered and they will follow up as mentioned above. PLAN: Follow up in one year with a repeat PA scoliosis film only. documented in this encounter Plan of Treatment Upcoming Encounters Date Type Department Care Team (Late st Contact Info) Description 08/08/2024 9:00 AM EST Appointment [address] [address] Umu Saucedo RN 08/15/2024 10:45 AM EST TH Visit (TeleHealth) Obstetrics and Gynecology at [place] [phone] Dara Kelley MD [facility] OBSTETRICS [place] [address] 11/25/2024 Hospital Encounter Birthing [place] [phone] Dara Gonzalez MD [facility] OBSTETRICS [place] [address] 07/12/2025 1:40 PM EST Office Visit Ophthalmology at [address] Bina Agrawal OD [facility] [place] [address] documented as of this encounter Visit Diagnoses Diagnosis Scoliosis- Primary Scoliosis (and kyphoscoliosis), idiopathic documented in this encounter Care Teams Funder Relationship Specialty Start Date End Date Horacio Joshua MD PCP - General 05/07/10 08/16/15 documented as of this encounter
--- OUTSIDE RECORDS SUMMARY | 2024-07-29 00:28 | XMS_ITS | Encounter Summary ---
Author Organization [facility] [place] [address] Care Team Providers Care Traveling Inventory Associate Name Role Phone Horacio Joshua MD Primary Care Provider [phone] Encounter Details Date Type Department Care Team (Late st Contact Info) Description 08/14/2011 Orders [place] [address] Yu Garay MD Scoliosis Social History Tobacco Use Types Packs/Day [...] Description 08/08/2024 9:00 AM EST Appointment [address] [phone] Umu Saucedo RN 08/15/2024 10:45 AM EST TH Visit (TeleHealth) Obstetrics [place] [address] Dara Kelley MD [facility] OBST[place]ICS [place] [address] 11/25/2024 Hospital Encounter [place]thing [place] [phone] Dara Gonzalez MD [facility] OBSTETRICS [place] [address] 07/12/2025 1:40 PM EST Office [place] [address] Bina Agrawal OD [facility] OPHTHALMOLOGY [place], [place] [phone] documented as of this encounter Results * XR scoliosis 1 [...] Similar in appearance to prior study. Yu Garya MD IMG DX ORDERABLES documented in this encounter Visit Diagnoses Diagnosis Scoliosis Scoliosis (and kyphoscoliosis), idiopathic Scoliosis Scoliosis (and kyphoscoliosis), idiopathic documented in this encounter Care Teams Traveling Inventory Associate Relationship Specialty Start Date End Date Horacio Joshua MD PCP - General 05/07/10 08/16/15 documented as of this encounter
--- OUTSIDE RECORDS SUMMARY | 2024-07-29 00:28 | XMS_ITS | Encounter Summary ---
Author Organization Formerly [facility] Address [facility] [place] [address] Care Team Providers Care Marketing Strategist Name Role Phone Horacio Joshua MD Primary Care Provider [phone] Reason for Visit * Reason Comments Follow-up no new concerns Encounter Details Date Type Department Care Team (Late st Contact Info) Description 05/17/2013 10:00 AM EST Follow-[place] [address] Pernell Pena MD [facility] [address] ETD (eustachian tube dysfunction) (Primary Dx); Conductive hearing loss in left ear Discharge Disposition: Home Social History Tobacco Use [...] Sign Reading Time Taken Comments Blood Pressure 109/66 05/17/2013 10:05 AM EST Pulse 66 05/17/2013 10:05 AM EST Temperature 36.5 ??C (97.7 ??F) 05/17/2013 1 0:05 AM EST Respiratory Rate - - Oxygen Saturation - - Inhaled Oxygen Concentration - - Weight 27.9 kg (61 lb 9.6 oz) 3 10:05 AM EST Height 129.5 cm (4' 3) 05/17/2013 10:0 5 AM EST Body Mass Index 16.65 05/17/2013 10:05 AM EST Body Mass Index Percentile 53.06% 05/17 10:05 AM EST Growth Chart: [facility] (Girls, 2- 20 Years) documented in this encounter Progress Notes * Pernell Pena MD - 05/17/2013 10:05 AM EST Pediatric Otolaryngology Follow-Up Note Date of Visit: 05/17/2013 Patient: Ely Mahmood ([id number]; 2005) Reason for Visit: Ely is a 8 y.o. ex-29 week girl with history of chronic otitis media s/pPE tubes, speech delay, developmental delay. History of bronchopulmonary dysplasia, congenital scoliosis. 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 Interval History: Last here Jan 2012 with small right TM perforation, thick/opaque left TM with mild CHL on right, normal left thresholds. Returns today for audiogram and recheck (missed planned 8 month follow-up). Right TM perforation appears to have closed. Left conductive hearing loss has returned based on today's audiogram - history of mucoid adhesions s/p mastoidectomy Jan 2010. Of note, small ECV and persistent CHL despite clearly patent PE tubes, suspicious for middle ear/mastoid mucosal adhesions on the left side. No otologic complaints. Water exposure is uncomfortable. No recent URI. Physical Examination: Vitals: Temperature 36.5 ??C (97.7 ??F), height 129.5 cm (4' 3), weight 27.942 kg (61 lb 9.6 oz). General: Age-appropriate interactive behavior. Breathing comfortably without [...] External auditory canals clear. Right tympanic membrane intact with myringosclerosis with thinner posterior segment (marginal, site of old perforation, healed now); thinner segment more mobile (brisk), myringosclerosis involving most of TM less mobile; appears aerated within right middle ear. Left tympanic membrane thick, opaque with small inferior thin segment that is now retracted, very little mobility with pneumatic otoscopy (neg-pressure only); leftmiddle ear appears aerated, though concerning for adhesions (based on prior history). Nose: Patent anteriorly with adequate airflow, healthy [...] auditory canal visualized under the operating microscope. External auditory canals clear. Right tympanic membrane myringosclerosis with thinner posterior segment; thinner segment more mobile(brisk), myringosclerosis involving most of TM less mobile; appears aerated within right middle ear. Left tympanic membrane thick, opaque with small inferior thin segment that is now retracted, very little mobility with pneumatic otoscopy (neg-pressure only); left middle ear appears aerated, thoughconcerning for adhesions (based on prior history). Audiograms (Personally reviewed and interpreted as follows): Apr 2013: Normal right thresholds with flat, small ECV tracing. Worsening left threhsolds - now with left with mild conductive hearing loss, small flat ECV. Jan 2012: Normal thresholds except low-freq mild CHL with flat, large tracing. Left normal with small ECV, decreased mobility. Left thresholds improved. Jul 2011: Left low-frequency mild conductive loss relatively unchanged compared to October 2010 with small ECV, flat tracing. Right thresholds remain unchanged with flat, large ECV tracing. October 2010: Slight improvement in left mild-moderate upsloping left conductive hearing loss ([id number]). Normal right thresohlds. Flat large ECV tracing [...] (EP,LM) Mar 25, 2007: Left moderate low-frequency, [id number] mid-frequency conductive hearing loss; left tracing reduced [...] and right tracings flat, no ECV recorded. Impression: Return of left conductive hearing loss, worse now with retracted thin monomeric segmentposterior left TM, resolution of small posterior right TM perforation following tube extrusion. Concerning for left middle ear and mastoid adhesions, persistent eustachian tube dysfunction History of left mastoidectomy January 2010 for left-sided chronic mastoiditis with mucoid [...] scoliosis, mild grade I subglottic stenosis. Plan: Discussed findings and options today with grandmother. Grandmother interested in meeting with Dr. Matta, manufacturing supervisor 2nd shift in light of worsening left conductive hearing thresholds and likely middle ear adhesions. Referral to Dr. Matta, [facility] manufacturing supervisor 2nd shift, for possible hearing aid trial versus revision procedure,middle ear exploration, take-down of adhesions. Follow-up with AE in 2 months and new-patient visit with Dr. Matta at that time. Pernell Pena MD, FAAP Pediatric Otolaryngology [facility] ([facility]) [facility] documented in this encounter Plan of Treatment Upcoming Encounters Date Type Department Care Team (Late st Contact Info) Description 08/08/2024 9:00 AM EST Appointment [address] [address] Umu Saucedo RN 08/15/2024 10:45 AM EST TH Visit (TeleHealth) Obstetrics [place] [address] Dara Kelley MD [facility] OBSTETRICS [place] [address] 11/25/2024 Hospital En[place] [address] Dara Gonzalez MD [facility] OBSTETRICS [place] [address] 07/12/2025 1:40 PM EST Office Visit Ophthalmology at [place] [phone] Bina Agrawal OD [facility] [place] [address] documented as of this encounter Visit Diagnoses Diagnosis ETD (eustachian tube dysfunction)- Primary Dysfunction of Eustachian tube Conductive hearing loss in left ear Conductive hearing loss, unilateral documented in this encounter Care Teams Marketing Strategist Relationship Specialty Start Date End Date Horacio Joshua MD PCP - General 05/07/10 08/16/15 documented as of this encounter
--- OUTSIDE RECORDS SUMMARY | 2024-07-29 00:28 | XMS_ITS | Encounter Summary ---
Author Organization [facility] Address [facility] [place] [address] Care Team Providers Care Scale Reclamation Tender Name Role Phone Horacio Joshua MD Primary Care Provider [phone] Encounter Details Date Type Department Care Team (Late st Contact Info) Description 11/09/2013 Orders [place] [address] Severo Hill MD [facility] [place] [address] Scoliosis Social History Tobacco Use Types Packs/Day [...] Description 08/08/2024 9:00 AM EST Appointment [address] [address] Umu Saucedo RN 08/15/2024 10:45 AM EST TH Visit (TeleHealth) Obstetrics [place] [address] Dara Kelley MD [facility] [place] [address] 11/25/2024 Hospital [place] [address] Dara Gonzalez MD [facility] [place] [address] 07/12/2025 1:40 PM EST Office [place] [address] Bina Agrawal OD [facility] [place] [address] documented as of this encounter Results * [...] idiopathic documented in this encounter Care Teams Scale Reclamation Tender Relationship Specialty Start Date End Date Horacio Joshua MD PCP - General 05/07/10 08/16/15 documented as of this encounter
--- OUTSIDE RECORDS SUMMARY | 2024-07-29 00:29 | XMS_ITS | Encounter Summary ---
Author Organization [facility] Address [facility] [place] [address] Care Team Providers Care Assorter Laundry Name Role Phone Horacio Joshua MD Primary Care Provider [phone] Reason for Visit * Reason Comments Follow-up Encounter Details Date Type Department Care Team (Late st Contact Info) Description 10/18/2010 11:00 AM EDT Follow-[place] [phone] Pernell Pena MD [facility] [place] [address] Conductive hearing loss (Primary Dx); ETD (eustachian tube dysfunction) Discharge Disposition: Home Social History Tobacco Use Types Packs/Day Years Used Date Smoking Tobacco: Never Assessed Sex and Gender Information Value Date Recorded [...] - Inhaled Oxygen Concentration - - Weight 20.4 kg (45 lb) 10/18/2010 11:31 AM EDT Height - - Body Mass Index - - documented in this encounter Progress Notes * Pernell Pena MD - 10/18/2010 12:33 PM EDT Pediatric Otolaryngology Follow-Up Note Date of Visit: 10/18/2010 Patient: Ely Mahmood ([id number]; 2005) Reason for Visit: Ely Bradley is a 5 y.o. ex-29 week girl with history of chronic otitis media s/p PE tubes, speech delay, developmental delay. History of bronchopulmonary dysplasia, congenital scoliosis. 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 Interval History: Stable, no problems. No otitis media, otorrhea, otalgia. Hearing stable, no changes. No new ENT issues. No amplification. Physical Examination: Vitals: Weight 20.412 kg (45 lb). General: Age-appropriate interactive behavior. Breathing comfortably [...] auditory canals clear. Right tympanic membrane with patent plastic Natacha PE tube in place; aerated right middle ear. Left tympanic membrane with patent plastic Natacha PE tube in place; aerated left middle ear. Nose: Patent anteriorly [...] without significant lymphadenopathy. Trachea midline without deviation. Audiogram Today: Slight improvement in left mild-moderate upsloping left conductive hearing loss ([id number]). Normal right thresohlds. Flat large ECV tracing on the right, small ECV on the leftwith patent PE tube (stable). Audiogram Summary: Feb 2010: Stable moderate low-freq conductive loss [...] (EP,LM) Mar 25, 2007: Left moderate low-frequency, [id number] mid-frequency conductive hearing loss; left tracing reduced [...] right tracings flat, no ECV recorded. Impression: Improvement in left-sided hearing thresholds in the mid-frequency range, persistent low-frequency conductive loss. Persistent low ECV tracing on the left side. 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 History of left conductive hearing loss with [...] mild grade I subglottic stenosis. Plan: Follow for any progressive hearing loss that might suggest fibrosis or ossicular fixation after tympanomastoidectomy. Surveillance audiogram and exam in 6 months, PE tube check. Pernell Pena MD, FAAP Pediatric Otolaryngology [facility] ([facility]) [facility] documented in this encounter Plan of Treatment Upcoming Encounters Date Type Department Care Team (Late st Contact Info) Description 08/08/2024 9:00 AM EST Appointment [address] [address] Umu Saucedo, RN 08/15/2024 10:45 AM EST TH Visit (TeleHealth) Obstetrics and Gynecology at [place] [phone] Dara Kelley MD [facility] OBSTETRICS [place] [address] 11/25/2024 Hospital [place] [address] Dara Gonzalez MD [facility] OBSTETRICS [place] [address] 07/12/2025 1:40 PM EST Office Visit Ophthalmology at [place] [phone] Bina Agrawal OD [facility] [place] [address] documented as of this encounter Visit Diagnoses Diagnosis Conductive hearing loss- Primary Unspecified conductive hearing loss ETD (eustachian tube dysfunction) Dysfunction of Eustachian tube documented in this encounter Care Teams Assorter Laundry Relationship Specialty Start Date End Date Horacio Joshua MD PCP - General 05/07/10 08/16/15 documented as of this encounter
--- OUTSIDE RECORDS SUMMARY | 2024-07-29 00:29 | XMS_ITS | Referral Summary ---
Author Organization [facility] Address [address] [place] [address] Care Team Providers Care Auto Body Estimator Name Role Phone Unavailable Primary Care Provider Unavailabl e Encounters Date Type Department Care Team Description 07/14/2024 Lab Requisition [facility] Pathology & Laboratory Medicine - [facility] [address] [place] [address] Outr Resulting Lab, Provider from Last 3 Months Social History Tobacco Use Types Packs/Day Years Used Date Smoking Tobacco: Never Assessed Comments Unknown Sex and Gender Information Value Date Recorded Sex Assigned at Not on file Legal Sex Female 0:35 EST Gender Identity Not on file Sexual Orientation Not on file Plan of Treatment Not on file Procedures Procedure Name Priority Date/Time Associated Diagnosis Comments FENTANYL SCREEN WITH REFLEX TO CONFIRMATION, U Routine 07/13/2024 13:40 EST from Last 3 Months Results * FENTANYL SCREEN WITH REFLEX TO CONFIRMATION, U (07/13/2024 13:40 EST) Fentanyl Screen with Reflex to Confirmation, U Negative <1 ng/mL 07/15/2024 11:25 EST [facility] Urine URINE / Unknown 07/13/2024 1 3:40 EST 07/14/2024 20:16 EST Narrative [facility] - 07/15/2024 11:25 EST Testing performed by: [facility] [address], [address], [place] [address] Grain Roaster: Rodney Rae MD; CLIA # [id number] us Provider Outr Resulting Lab URINALYSIS ORDERABLE S Final Result [facility] [address], [address] [place], [place] [address] [phone] from Last 3 Months
--- OUTSIDE RECORDS SUMMARY | 2024-07-29 00:29 | XMS_ITS | Encounter Summary ---
Author Organization [facility] Address [facility] [place] [address] Care Team Providers Care Political Researcher Name Role Phone Horacio Joshua MD Primary Care Provider [phone] Reason for Visit * Reason Comments Well Child No immies needed. He re with Gram. Lump on R forearm. Encounter Details Date Type Department Care Team (Late st Contact Info) Description 01/21/2011 2:45 PM EDT Office Visit Pediatrics at [address] [phone] Jduy Neri MD Constipation (Primary Dx); Healthy or child Discharge Disposition: Home Social History Tobacco Use [...] Sign Reading Time Taken Comments Blood Pressure 100/50 01/21/2011 2:50 PM EDT Pulse - - Temperature - - Respiratory Rate - - Oxygen Saturation - - Inhaled Oxygen Concentration - - Weight 22.6 kg (49 lb 13.2 oz) 01/21/2011 2:50 P M EDT Height 115 cm (3' 9.28) 01/21/2011 2:50 PM EDT Body Mass Index 17.09 01/21/2011 2:50 PM EDT Body Mass Index Percentile 79.56% 01/21/2011 2:5 0 PM EDT Growth Chart: [facility] (Girls, 2- 20 Years) documented in this encounter Progress Notes * Horacio Joshua MD - 01/24/2011 1:54 PM EDT I have seen the patient and reviewed the resident's above history and I agree with the details as written. The assessment and plan were formulated in discussion with me and I agree with them as documented. * Judy Neri MD - 01/21/2011 3:26 PM EDT Subjective: Ely Mahmood is here for her well child check. The [employer] questionnaire has been reviewed and positive answers recorded. GM concerns regarding hearing and that Ely can't concentrate on two people at a time. She also has trouble hearing conversations on the phone. Concerns: As above. Also has trouble sleeping at night. She took melatonin but that didn't work. Per Gm, she also has had constipation long-term. Interim History: Lives with GM, GF and Uncle Therese. Has a dog and a cat. The following topics were reviewed and relevant details recorded below. X = reviewed and no concerns. Nutrition: picky eater, won't finish food, likes pizza. Some milk. Drinks soda. Elimination: No diarrhea, some constipation. Sleep: Has trouble waking up and getting to sleep but once asleep will stay asleep. Has bad dreams sometimes. When asked about sleep, Ely said Uncle Therese sleeps downstairs (we sleep upstairs). Shesometimes dreams of being dunked underwater, seeing skeletons and zombies/monsters. She does not like sleeping in her own bed. Oral health: had a cleaning on Thursday Activity/media: variable. Cardiopulmonary sports screening: X School: Going into first grade, excited about school and making new friends. Needs quiet when in school in order to concentrate. Goals/Hobbies: jump-ropes. Behavior: X Objective: Physical Exam Vitals reviewed Constitutional: well-developed and well-nourished. Active, NAD Head: Normocephalic, atraumatic. Right Ear: Tympanic membrane normal. Tube in place Left Ear: Tympanic membrane normal. Tube in place Mouth/Throat: Mucous membranes are moist. Oropharynx is clear. Eyes: Conjunctivae and EOM are normal. Pupils are equal, round, and reactive to light. Neck: Neck supple. No adenopathy. Cardiovascular: Normal rate, regular rhythm, S1 normal and S2 normal. Femoral pulses are palpable. No murmurs appreciated. Pulmonary/Chest: Effort normal and breath sounds normal. Abdominal: Soft. Bowel sounds are normal. He exhibits no distension and no mass. There is no hepatosplenomegaly. No tenderness. Genitourinary: Vulva normal. Normal elena 1. Musculoskeletal: Normal range of motion. He exhibits no deformity. Skin: Skin is warm. 5th R toenail is black and thickened. On R forearm 2-3 mm firm, nontender mobile nodule. Today's growth parameters: 46.76% of growth percentile based on fdkmkd-ooa-msn. 10.11% of growth percentile based on wvpvarm-zyk-ioc. 79.55% of growth percentile based on BMI-for-age. Assessment and Plan: Ely Mahmood is healthy with normal interval growth and development. Immunizations, medications, and allergies were updated today as reflected in the record. Routine age-appropriate anticipatory guidance per [employer] Guidelines regarding independent decision-making, pubertal changes, good food choices, physical activity and safety. - R 5th toe: Ely appears to have thick toenails but will continue to monitor - Will continue to monitor nodule on R forearm: not concerning given that she's had it for a year and it is not giving her any discomfort. - Miralax: take 1/2 capful. If still having hard stools, can gradually increase. - Spoke with Ely regarding safety and that she would never get in trouble for saying anything in her doctor's office. - Follow-up in 1 year for next well child exam or sooner as needed. Judy Neri MD HPI Review of Systems Physical Exam documented in this encounter Plan of Treatment Upcoming Encounters Date Type Department Care Team (Late st Contact Info) Description 08/08/2024 9:00 AM EST Appointment [address] [address] Umu Saucedo, RN 08/15/2024 10:45 AM EST TH Visit (TeleHealth) Obstetrics and Gynecology at [place] [phone] Dara Kelley MD [facility] OBSTETRICS [place] [address] 11/25/2024 Hospital Encounter Birthing [address] Dara Gonzalez MD [facility] OBSTETRICS [place] [address] 07/12/2025 1:40 PM EST Office Visit Ophthalmology at [address] Bina Agrawal OD [facility] [place] [address] documented as of this encounter Visit Diagnoses Diagnosis Constipation- Primary Unspecified constipation Healthy or child Health supervision of other healthy infant or child receiving care documented in this encounter Care Teams Political Researcher Relationship Specialty Start Date End Date Horacio Joshua MD PCP - General 05/07/10 08/16/15 documented as of this encounter
--- OUTSIDE RECORDS SUMMARY | 2024-07-29 00:29 | XMS_ITS | Encounter Summary ---
Author Organization Former[facility] Address [facility] [place] [address] Care Team Providers Care Project Intern Name Role Phone Horacio Joshua MD Primary Care Provider [phone] Encounter Details Date Type Department Care Team (Late st Contact Info) Description 07/18/2011 2:30 PM EST Follow-Up Audiology at [address] [address] Gracie Ford V, MS [facility] DR [place] [address] Conductive hearing loss, unilateral (Primary Dx) Discharge [...] as of this encounter Progress Notes * Gracie Ford V, MS - 07/18/2011 2:28 PM EST AUDIOLOGIC EVALUATION Ely Mahmood, 6 y.o. 6 m.o. was seen on 07/18/2011 for an audiologic evaluation in conjunction with appointment in Otolaryngology. Please refer to the office note from Otolaryngology as well asscanned audiogram in her medical record for impressions and recommendations. It may take up to 24 hours for the audiogram to be scanned. Gracie Ford MS, [facility] [address] documented in this encounter Plan of Treatment Upcoming Encounters Date Type Department Care Team (Late st Contact Info) Description 08/08/2024 9:00 AM EST Appointment [address] [address] Umu Saucedo, RN 08/15/2024 10:45 AM EST TH Visit (TeleHealth) Obstetrics and Gynecology at [place] [phone] Dara Kelley MD [facility] [place] [address] 11/25/2024 Hospital Encounter Birthing [place] [phone] Dara Gonzalez MD [facility] [place] [address] 07/12/2025 1:40 PM EST Office Visit Ophthalmology at [place] [phone] Bina Agrawal OD [facility] [place] [address] documented as of this encounter Visit Diagnoses Diagnosis Conductive hearing loss, unilateral- Primary documented in this encounter Care Teams Project Intern Relationship Specialty Start Date End Date Horacio Joshua MD PCP - General 05/07/10 08/16/15 documented as of this encounter
--- OUTSIDE RECORDS SUMMARY | 2024-07-29 00:29 | XMS_ITS | Clinical Summary ---
Author Organization [facility] Address [address] [place] [address] Care Team Providers Care Felt Machine Mechanic Name Role Phone Unavailable Primary Care Provider Unavailabl e Encounters Date Type Department Care Team Description 07/14/2024 Lab Requisition [facility] Pathology & Laboratory Medicine - [address] [address] Outr Resulting Lab, Provider from Last 3 Months Social History Tobacco Use Types Packs/Day Years Used Date Smoking Tobacco: Never Assessed Comments Unknown Sex and Gender Information Value Date Recorded Sex Assigned at Not on file Legal Sex Female 0:35 EST Gender Identity Not on file Sexual Orientation Not on file Plan of Treatment Health Maintenance Due Date Last Done Comments Hepatitis C Screen 2004 Hepatitis B Vaccine (1 of 3 - 19+ 3-dose series) 01/02 COVID-19 Vaccine ( season) 2024 Procedures Procedure Name Priority Date/Time Associated Diagnosis Comments FENTANYL SCREEN WITH REFLEX TO CONFIRMATION, U Routine 07/13/2024 13:40 EST from Last 3 Months Results * FENTANYL SCREEN WITH REFLEX TO CONFIRMATION, U (07/13/2024 13:40 EST) Fentanyl Screen with Reflex to Confirmation, U Negative <1 ng/mL 07/15/2024 11:25 EST [email or web address] Urine URINE / Unknown 07/13/2024 1 3:40 EST 07/14/2024 20:16 EST Narrative [facility] - 07/15/2024 11:25 EST Testing performed by: [facility] [address] [place] [address], [address], [place] [address] Fourth Mate: Rodney Rae MD; CLIA # [id number] us Provider Outr Resulting Lab URINALYSIS ORDERABLE S Final Result [facility] [address] [facility], [address] [place] [address], [facility] [phone] from Last 3 Months
--- OUTSIDE RECORDS SUMMARY | 2024-07-29 00:29 | XMS_ITS | Encounter Summary ---
Author Organization [facility] Address [facility] [place] [address] Care Team Providers Care Verification Rep Name Role Phone Horacio Joshua MD Primary Care Provider [phone] Encounter Details Date Type Department Care Team (Late st Contact Info) Description 06/12/2010 3:20 PM EST [place] [address] Yu Garay MD Discharge Disposition: Home Social History Tobacco Use [...] Description 08/08/2024 9:00 AM EST Appointment [address] [phone] Umu Saucedo RN 08/15/2024 10:45 AM EST TH Visit (TeleHealth) Obstetrics [place] [address] Dara Kelley MD [facility] OB[place] [address] 11/25/2024 Hospital Encounter Birthing [place] [phone] Dara Gonzalez MD [facility] OBSTETRICS [place] [address] 07/12/2025 1:40 PM EST Office Visit Ophthalmology at [place] [phone] Bina Agrawal, JONELLE [facility] [place] [address] documented as of this encounter Visit Diagnoses Not on filedocumented in this encounter Care Teams Verification Rep Relationship Specialty Start Date End Date Horacio Joshua MD PCP - General 05/07/10 08/16/15 documented as of this encounter
--- OUTSIDE RECORDS SUMMARY | 2024-07-29 00:29 | XMS_ITS | Encounter Summary ---
Author Organization [facility] Address [address] [place] [address] Care Team Providers Care Benzol Operator Name Role Phone Unavailable Primary Care Provider Unavailabl e Encounter Details Date Type Department Care Team (Late st Contact Info) Description 07/14/2024 Lab Requisition [facility] Pathology & Laboratory Medicine - [facility] [address] [place] [address] Outr Resulting Lab, Provider Social History Tobacco Use Types Packs/Day Years Used Date Smoking Tobacco: Never Assessed Comments Unknown Sex and Gender Information Value Date Recorded Sex Assigned at Not on file Legal Sex Female 0:35 EST Gender Identity Not on file Sexual Orientation Not on file documented as of this encounter Plan of Treatment Not on file documented as of this encounter Procedures Procedure Name Priority Date/Time Associated Diagnosis Comments FENTANYL SCREEN WITH REFLEX TO CONFIRMATION, U Routine 07/13/2024 13:40 EST documented in this encounter Results * FENTANYL SCREEN WITH REFLEX TO CONFIRMATION, U (07/13/2024 13:40 EST) Fentanyl Screen with Reflex to Confirmation, U Negative <1 ng/mL 07/15/2024 11:25 EST [facility] Urine URINE / Unknown 07/13/2024 1 3:40 EST 07/14/2024 20:16 EST Narrative [facility] - 07/15/2024 11:25 EST Testing performed by: [facility] [address] [place] [address], [address], [place] [address] Civil Service Clerk: Rodney Rae MD; CLIA # [id number] us Provider Outr Resulting Lab URINALYSIS ORDERABLE S Final Result [facility] [address] [facility], [address] [phone] documented in this encounter Visit Diagnoses Not on filedocumented in this encounter
--- OUTSIDE RECORDS SUMMARY | 2024-07-29 00:29 | XMS_ITS | Encounter Summary ---
Author Organization [facility] [place] [address] Care Team Providers Care Electronics Hardware Design Engineer Name Role Phone Horacio Joshua MD Primary Care Provider [phone] Reason for Visit * Reason Comments Hearing Loss Encounter Details Date Type Department Care Team (Late st Contact Info) Description 10/18/2010 10:15 AM EDT Follow-Up Audiology at [address] [phone] Tracy Childers AUD Conductive hearing loss (Primary Dx) Discharge Disposition: Home Social History Tobacco Use Types Packs/Day Years Used Date Smoking Tobacco: Never Assessed Sex and Gender Information Value Date Recorded Sex Assigned at Female 07/24/2023 9:35 AM EST Gender Identity Female 07/24/2023 9:35 AM EST Sexual Orientation Straight 07/24/2023 9: 35 AM EST documented as of this encounter Progress Notes * Tracy Scales MA - 10/18/2010 4:41 PM ED[place] [address] Ely Bradley, 5 y.o. was seen on 10/18/2010 for an audiologic evaluation. Please refer to the scannedaudiogram listed under Audiology Studies for findings, impressions and recommendations. It may take up to 24 hours for the audiogram to be scanned. Enclosure: Audiogram Tracy Scales MA, News Camera Operator [place] [phone] documented in this encounter Procedure Notes * Provider, Scanning - 10/25/2010 1:18 PM EDTAssociated Order(s): SCAN DOC: AUDIOLOGY documented in this encounter Plan of Treatment Upcoming Encounters Date Type Department Care Team (Late st Contact Info) Description 08/08/2024 9:00 AM EST Appointment [address] [phone] Umu Saucedo RN 08/15/2024 10:45 AM EST TH Visit (TeleHealth) Obstetrics [place] [phone] Dara Kelley MD [facility] OBSTETRICS [place] [address] 11/25/2024 Hospital Encounter Birthing [place] [phone] Dara Gonzalez MD [facility] OBSTETRICS [place] [address] 07/12/2025 1:40 PM EST Office [place] [address] Bina Agrawal OD [facility] [place] [address] documented as of this encounter Procedures Procedure Name Priority Date/Time Associated Diagnosis Comments AUDIOLOGY SCAN 10/25/2010 1:18 PM EDT documented in this encounter Results * SCAN DOC: AUDIOLOGY (10/25/2010 1:18 PM EDT) Narrative 10/25/2010 1:18 PM EDT Procedure Note Provider, Scanning - 10/25/2010 1:18 PM EDT Scanning Provider MEDIA MGR SCAN EXT O RDR/RSLT documented in this encounter Visit Diagnoses Diagnosis Conductive hearing loss- Primary Unspecified conductive hearing loss documented in this encounter Care Teams Electronics Hardware Design Engineer Relationship Specialty Start Date End Date Horacio Joshua MD PCP - General 05/07/10 08/16/15 documented as of this encounter
--- OUTSIDE RECORDS SUMMARY | 2024-07-29 00:29 | XMS_ITS | Encounter Summary ---
Author Organization [facility] Address [facility] [place] [address] Care Team Providers Care Swatch Cutter Name Role Phone Horacio Joshua MD Primary Care Provider [phone] Reason for Visit * Reason Comments Follow-up [facility] Encounter Details Date Type Department Care Team (Late st Contact Info) Description 07/18/2011 3:15 PM EST [place] [address] Pernell Pena MD [facility] [place] [address] Conductive hearing loss in left ear (Primary Dx) Discharge Disposition: Home Social History [...] Pressure - - Pulse - - Temperature 37.2 ??C (99 ??F) 07/18/2011 3:04 PM EST Respiratory Rate - - Oxygen Saturation - - Inhaled Oxygen Concentration - - Weight 23.7 kg (52 lb 3.2 oz) 07/18/2011 3:04 PM EST Height 119.4 cm (3' 11) 07/18/2011 3:04 PM EST Body Mass Index 16.61 07/18/2011 3:04 PM EST Body Mass Index Percentile 69.36% 07/18/2011 3:0 4 PM EST Growth Chart: [facility] (Girls, 2- 20 Years) documented in this encounter Progress Notes * Pernell Pena MD - 07/18/2011 3:23 PM EST Pediatric Otolaryngology Follow-Up Note Date of Visit: 07/18/2011 Patient: Ely Mahmood ([id number]; 2005) Reason for Visit: Ely is a 6 y.o. ex-29 week girl with history of chronic otitis media s/pPE tubes, speech delay, developmental delay. History of bronchopulmonary dysplasia, congenital scoliosis. 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 Interval History: Last here in October 2010 with stable audiogram, patent PE tubes. No otalgia, otorrhea, or infections. No change in subjective hearing at home or at school. Currently in first grade, having fun. No new ENT issues or concerns. Physical Examination: Vitals: Temperature 37.2 ??C (99 ??F), temperature source Tympanic, height 119.4 cm (3' 11), weight 23.678 kg (52 lb 3.2 oz). General: Age-appropriate interactive behavior. Breathing comfortably without stridor, stertor. No retractions. No acute distress. Face: Full and symmetric facial movement. No dysmorphic facial features. Eyes: Periocular structures and conjunctiva healthy without lesions. Pupils are equal, round, and reactive to light. Extraocular movement is full and intact. No dysconjugate gaze. No evidence of nystagmus. Ears: Auricles symmetric without lesions. External auditory canals with extruded left PE tube; clear on the right - see procedure note. Right tympanic membrane with extruding plastic Natacha PE tube partially in EAC; small perforation behind extruding tube; aerated right middle ear. Left tympanic membrane thick, opaque with small inferior thin mobile segment; mobility decreased; apparent aeration l eft middle ear. Nose: Patent anteriorly with adequate [...] from EAC. Findings as noted above. Audiogram Jul 2011: Left low-frequency mild conductive loss relatively unchanged compared to October 2010 with small ECV, flat tracing. Right thresholds remain unchanged with flat, large ECV tracing. October 2010: Slight improvement in left mild-moderate upsloping left conductive hearing loss ([id number]). Normal right thresohlds. Flat large ECV tracing [...] (EP,LM) Mar 25, 2007: Left moderate low-frequency, nrop-[id number] mid-frequency conductive hearing loss; left tracing reduced [...] right tracings flat, no ECV recorded. Impression: Extruded left PE tube, stable left conductive hearing loss. Right PE tube extruding with small perforation, healthy with normal hearing. Improvement in left-sided hearing thresholds in the [...] for closure of small perforation seen today. Repeat audiogram in 4 months - unclear if replacing left PE tube will help her hearing loss. Follow for any progressive hearing loss that might suggest fibrosis or ossicular fixation after tympanomastoidectomy. Pernell Pena MD, FAAP Pediatric Otolaryngology [facility] documented in this encounter Plan of Treatment Upcoming Encounters Date Type Department Care Team (Late st Contact Info) Description 08/08/2024 9:00 AM EST Appointment [address] [phone] Umu Saucedo, RN 08/15/2024 10:45 AM EST TH Visit (TeleHealth) Obstetrics [place] [address] Dara Kelley MD [facility] OBSTETRICS [place] [address] 11/25/2024 [place] [address] Dara Gonzalez MD [facility] OBSTETRICS [place] [address] 07/12/2025 1:40 PM EST Office Visit Ophthalmology at [place] [address] Bina Agrawal OD [facility] [place] [address] documented as of this encounter Visit Diagnoses Diagnosis Conductive hearing loss in left ear- Primary Conductive hearing loss, unilateral documented in this encounter Care Teams Swatch Cutter Relationship Specialty Start Date End Date Horacio Joshua MD PCP - General 05/07/10 08/16/15 documented as of this encounter
--- OUTSIDE RECORDS SUMMARY | 2024-07-29 00:29 | XMS_ITS | Encounter Summary ---
Author Organization [facility] [place] [address] Care Team Providers Care International Relations Teacher Name Role Phone Horacio Joshua MD Primary Care Provider [phone] Encounter Details Date Type Department Care Team (Late st Contact Info) Description 06/12/2010 2:30 PM EST Procedure visit [place] [address] Social History Tobacco Use Types Packs/Day Years [...] Info) Description 08/08/2024 9:00 AM EST Appointment [facility] [address] [place] [phone] Umu Saucedo RN 08/15/2024 10:45 AM EST TH Visit (TeleHealth) Obstetrics [place] [address] Dara Kelley MD [facility] [address] OBSTETRICS [place] [address] 11/25/2024 Hospital Encounter [place] [phone] Dara Gonzalez MD [facility] [place] [address] 07/12/2025 1:40 PM EST Office Visit Ophthalmology at [place] [phone] Bina Agrawal OD [facility] [place] [address] documented as of this encounter Visit Diagnoses Not on filedocumented in this encounter Care Teams International Relations Teacher Relationship Specialty Start Date End Date Horacio Joshua MD PCP - General 05/07/10 08/16/15 documented as of this encounter
== END 2024-07-29 00:37 ==
PROVIDERS: Visit Provider Advanced Practice Midwife
DX: Z34.82 Encounter for supervision of other normal pregnancy, second trimester (principal); Z3A.22 22 weeks gestation of pregnancy
CPT/HCPCS: 76815

== ENCOUNTER 2024-08-24 11:50 | Emergency (ER) | payer MEDICAID, SELFPAY ==
[2024-08-24] VITALS (18 sets, daily range): BP systolic 121–127; BP diastolic 62–78; PULSE 71–107; RESP 15–16; TEMP 36.4; O2SAT 96–100
[2024-08-24] MEDS: Prochlorperazine 10 MG/2 ML VIAL IM (12:15)
[2024-08-24 13:12] LABS: Bilirubin Negative (Negative); Blood Negative (Negative); Clarity Sl Cloudy (Clear); Glucose Negative (Negative); Ketones Negative (Negative); Leukocyte Esterase Trace (Negative); Nitrite Negative (Negative); Specific Gravity 1.015 (1.005-1.025); Urobilinogen 0.2 mg/dL (Up to 0.2); pH 6.5 (5-8)
[2024-08-24 13:17] LABS: Bacteria Few HPF (Negative); C & S Indicated? No; Casts Negative LPF (Negative); Crystals Negative HPF (Negative); Epithelial Cells Moderate HPF (Negative); Mucus Trace (Negative); RBC 0-2 HPF (0-2)
[2024-08-24] MEDS: ACETAMINOPHEN 500 MG/50 ML BAG 200 MG IVPB (13:39)
[2024-08-24] MEDS: Normal Saline 1,000 ML 1000 ML IV (13:39)
[2024-08-24 13:48] LABS: Abs Immature Grans 0.23 10^3/uL (0.0-0.06); Absolute Basophil Count 0.09 10^3/uL (0.0-0.2); Absolute Lymphocyte Count 1.84 10^3/uL (1.2-3.4); Basophils % 0.6 %; Eosinophils % 0.9 %; HCT 35.6 % (36.0-46.0); HGB 11.8 g/dL (11.2-15.7); Immature Grans % 1.5 %; Lymphocytes % 12.4 %; MCH 29.6 pg (27.0-33.0); MCHC 33.1 % (32.0-36.0); MCV 89 fL (80-95); MPV 9.6 fL (8.0-11.0); Neutrophils % 75.6 %; Platelet Count 363 10^3/uL (130-400); RBC 3.98 10^6/uL (3.93-5.22); RDW 11.9 % (11.7-14.6); RDW-SD 39.1 fL; WBC 14.85 10^3/uL (4.4-10.8)
[2024-08-24 13:50] LABS: Absolute Eosinophil Count 0.13 10^3/uL (0.0-0.7); Absolute Monocyte Count 1.34 10^3/uL (0.1-0.8); Absolute Neutrophil Count 11.23 10^3/uL (1.2-6.7)
[2024-08-24 14:09] LABS: ALT 10 U/L (14-59); AST 19 U/L (15-37); Albumin 2.8 g/dL (3.4-5.0); Alkaline Phosphatase 74 U/L (46-116); Anion Gap 9.6 mmol/L (3-11); BUN 11 mg/dL (7-18); Bilirubin, Total 0.2 mg/dL (0.2-1.0); CO2 24.4 mmol/L (21.0-32.0); CREATININE 0.7 mg/dL (0.55-1.02); Calcium 8.9 mg/dL (8.5-10.1); Chloride 104 mmol/L (98-107); Glucose 75 mg/dL (74-106); Sodium 138 mmol/L (136-145); Total Protein 7.2 g/dL (6.4-8.2)
--- NOTE | 2024-08-24 15:47 | ED.GENADUL_ITS ---
Discharge Plan Disposition Patient Disposition: Home Condition: Stable Discharge Details Clinical Impression: Headache, Primary Care Provider: Unknown,Unknown ED Provider: Riri Dong Home Meds and New Rx's Prescriptions: New prochlorperazine maleate [Compazine] 10 mg tablet 10 mg PO Q6H PRNQty: 10 0RF Continued Plus Vitamin-Mineral 27 mg iron- 1 mg tablet 1 tab PO DAILY Qty: 90 4RF sertraline 25 mg tablet 25 mg PO DAILY Qty: 30 0RF ondansetron 4 mg tablet,disintegrating 4 mg PO Q6H PRN (Reason: nausea and vomiting) Qty: 30 0RF magnesium oxide 500 mg capsule 500 mg PO DAILY Qty: 30 0RF Discharge Instructions Instructions: Headache, Adult ED Additional Instructions: Compazine as needed for headache Take Tylenol every 8 hours as needed for discomfort Make sure you are drinking at least eight 8 ounce glasses of water daily this is very important Please be reevaluated should you develop new or worsening complaints including swelling in your legs uncontrolled headache, or should any new concerns arise HPI General Date/Time Provider Initiated Documentation: 08/24/24 12:11 . HPI Narrative: The patient is a 19-year-old female who presents at 26 weeks with a report of a headache that started approximately 4 days prior to arrival. I received a phone call from her ammonia refrigeration worker requesting evaluation. She reports that the headache has not improved since its onset. She does not have any known trauma to her head. She does not have any new vaginal pain, cramping, or bleeding. Her has been uneventful thus far. Related Data Home Medications ?Medication ?Instructions ?Recorded ?Confirmed vitamin no.180-ferrous 1 tab PO DAILY #90 tabs 07/13/24 08/24/24 fumarate 27 mg-folic acid 1 mg tablet ( Plus Vitamin-Mineral) ondansetron 4 mg disintegrating 4 mg PO Q6H PRN nausea and 08/11/24 08/24/24 tablet vomiting #30 tabs sertraline 25 mg tablet 25 mg PO DAILY #30 tabs 08/11/24 08/24/24 magnesium oxide 500 mg capsule 500 mg PO DAILY #30 caps 08/22/24 08/24/24 prochlorperazine maleate 10 mg 10 mg PO Q6H PRN #10 tabs 08/24/24 tablet (Compazine) Previous Rx's ?Medication ?Instructions ?Recorded vitamin no.180-ferrous 1 tab PO DAILY #90 tabs 07/13/24 fumarate 27 mg-folic acid 1 mg tablet ( Plus Vitamin-Mineral) ondansetron 4 mg disintegrating 4 mg PO Q6H PRN nausea and 08/11/24 tablet vomiting #30 tabs sertraline 25 mg tablet 25 mg PO DAILY #30 tabs 08/11/24 magnesium oxide 500 mg capsule 500 mg PO DAILY #30 caps 08/22/24 prochlorperazine maleate 10 mg 10 mg PO Q6H PRN #10 tabs 08/24/24 tablet (Compazine) Allergies Allergy/AdvReac Type Severity Reaction Status Date / Time adhesive Allergy Mild rash Verified 08/24/24 12:04 General Stated Complaint: Headache SHWETA: 3 Exam Narrative Exam Narrative: General Appearance: Patient is alert and oriented, no acute distress. Vital signs: Blood pressure is stable. HEENT: Pupils are equal, round, reactive to light and accommodation. Extraocular muscles are intact. Respiratory: Lungs are clear to auscultation. Cardiovascular: Cardiac rate and rhythm are regular. Gastrointestinal: No abdominal tenderness. Skin: No rashes or lesions on the skin. Neurological: Neurological exam is nonfocal. Patient is able to follow basic commands and ambulatory with steady gait. Course Vital Signs Vital signs: Vital Signs Temperature 36.4 C 08/24/24 12:01 Pulse 92 H 08/24/24 12:01 Respiratory Rate 15 08/24/24 12:01 Blood Pressure 127/78 08/24/24 12:01 Pulse Oximetry 98 08/24/24 12:01 Temperature 36.4 C 08/24/24 15:13 Pulse 81 08/24/24 15:13 Respiratory Rate 16 08/24/24 15:13 Blood Pressure 124/62 08/24/24 15:13 Blood Pressure Mean 81 08/24/24 13:16 Blood Pressure Position Sitting 08/24/24 12:05 Pulse Oximetry 98 08/24/24 15:13 Oxygen Delivery Method Room Air 08/24/24 12:05 Oxygen Flow Rate 0 08/24/24 12:05 Pain Level 3 08/24/24 15:13 Lab/Test Results Lab/Test Results: Laboratory Tests Range/Units 08/24/24 08/24/24 13:06 13:35 WBC (4.4-10.8) 10^3/uL 14.85 H RBC (3.93-5.22) 10^6/uL 3.98 Hgb (11.2-15.7) g/dL 11.8 Hct (36.0-46.0) % 35.6 L MCV (80-95) fL 89 MCH (27.0-33.0) pg 29.6 MCHC (32.0-36.0) % 33.1 RDW (11.7-14.6) % 11.9 Plt Count (130-400) 10^3/uL 363 MPV (8.0-11.0) fL 9.6 Immature Gran % % 1.5 Neutrophils % % 75.6 Lymphocytes % % 12.4 Monocytes % % 9.0 Eosinophils % % 0.9 Basophils % % 0.6 Nucleated RBC % (0.0-0.3) % 0.0 Absolute Neutrophils (1.2-6.7) 10^3/uL 11.23 H Absolute Lymphocytes (1.2-3.4) 10^3/uL 1.84 Absolute Monocytes (0.1-0.8) 10^3/uL 1.34 H Absolute Eosinophils (0.0-0.7) 10^3/uL 0.13 Absolute Basophils (0.0-0.2) 10^3/uL 0.09 Sodium (136-145) mmol/L 138 Potassium (3.5-5.1) mmol/L 4.0 Chloride (98-107) mmol/L 104 Carbon Dioxide (21.0-32.0) mmol/L 24.4 Anion Gap (3-11) mmol/L 9.6 BUN (7-18) mg/dL 11 Creatinine (0.55-1.02) mg/dL 0.7 Est GFR (CKD-EPI 2020) (mL/min/1.73m2) 126.90 Glucose (74-106) mg/dL 75 Calcium (8.5-10.1) mg/dL 8.9 Magnesium (1.8-2.4) mg/dL 2.0 Total Bilirubin (0.2-1.0) mg/dL 0.2 AST (15-37) U/L 19 ALT (14-59) U/L 10 L Alkaline Phosphatase (46-116) U/L 74 Total Protein (6.4-8.2) g/dL 7.2 Albumin (3.4-5.0) g/dL 2.8 L Urine Color (Yellow) Yellow Urine Clarity (Clear) Sl Cloudy Urine pH (5-8) 6.5 Ur Specific Gifford (1.005-1.025) 1.015 Urine Protein (Neg-Trace) mg/dL Negative Urine Ketones (Negative) mg/dL Negative Urine Blood (Negative) Negative Urine Nitrite (Negative) Negative Urine Bilirubin (Negative) Negative Urine Urobilinogen (Up to 0.2) mg/dL 0.2 Ur Leukocyte Esterase (Negative) Trace H Urine RBC (0-2) HPF 0-2 Urine WBC (0-5) HPF 3-5 Ur Epithelial Cells (Negative) HPF Moderate Urine Crystals (Negative) HPF Negative Urine Bacteria (Negative) HPF Few Urine Casts (Negative) LPF Negative Urine Mucus (Negative) Trace Ur Culture Indicated? No Urine Glucose (Negative) mg/dL Negative Medical Decision Making Laboratory Studies No proteinuria. Negative flu COVID RSV, CBC and CMP reassuring Initial Assessment: 19-year-old female, 26 weeks , presents with a headache starting 4 days prior. No new vaginal pain, cramping, or bleeding. Uneventful thus far. Differential Diagnosis: - Headache: No known trauma to head, no signs of meningismus. Low suspicion for preeclampsia due to stable blood pressure and no proteinuria. Plan includes Compazine, fluids, magnesium, and follow-up with ammonia refrigeration worker. ED Course: - Administered Compazine, fluids, and magnesium. - Patient reported marked relief in symptoms. - Blood pressure stable. - No proteinuria. - Encouraged follow-up with ammonia refrigeration worker. - Prescription for Compazine provided for home use. - Continue taking Tylenol as needed. - Return precautions reviewed and understood. Final Assessment: Patient presented with a headache, received treatment with Compazine, fluids, and magnesium, resulting in marked symptom relief. Blood pressure stable, no proteinuria, low suspicion for preeclampsia. Follow-up with ammonia refrigeration worker advised. Clinical Impression: - Headache - at 26 weeks gestation Disposition: - Discharge: Patient requested discharge home, deemed reasonable. - Follow-Up: Advised to follow up with ammonia refrigeration worker closely in the outpatient setting. Patient Education: Return precautions reviewed and patient expressed understanding. MDM Components Evaluation: - Number of Differential Diagnoses or Management Options: Headache - Amount and Complexity of Data Reviewed: Clinical examination, blood pressure, proteinuria assessment - Risk of Complication and Morbidity or Mortality: Low suspicion for preeclampsia, stable condition. Quality:SDOH Health Related Social Needs: No Data to Display PFSH All Active Problems (Updated 08/24/24 @ 14:59 by ABIGAIL Patrick) Headache (Acute) Migraine aura, persistent (Acute) Financial insecurity (Acute) Anxiety disorder, unspecified (Acute) Depression (Chronic) Dx age 14y.o, unsure of medications she has used in past, never for more than 1 week Chlamydia infection during , antepartum (Acute) (Acute) Medical History (Updated 08/24/24 @ 14:59 by ABIGAIL Patrick) Family history of alcohol abuse Social History Smoking/Tobacco Use Status: Never Smoking risk assessment performed?: Yes Alcohol Intake: never Drug use: Never Substance use type: does not use History History 2 Para 0 Hx # Term Pregnancies 0 Multiple births 0 Hx # Pregnancies 0 Ectopic pregnancies 0 AB induced 0 Hx Number of Living Children 0 AB spontaneous 1
== END 2024-08-24 15:25 | disposition home or self-care (01) ==
PROVIDERS: Emergency Provider Physician Assistant
DX: O26.892 Other specified pregnancy related conditions, second trimester (principal); R51.9 Headache, unspecified; Z3A.26 26 weeks gestation of pregnancy
CPT/HCPCS: 36415; 80053; 87426; 96360; 96372; 99284; 81003; 81015; 83735; 85025; J0131; J0780

== ENCOUNTER 2024-08-29 14:43 | Outpatient (CLI) | payer MEDICAID, SELFPAY ==
[2024-08-29 15:52] VITALS: BP 124/75; PULSE 100; TEMP 36.5
[2024-08-29 16:02] VITALS: BP 124/75; PULSE 100; TEMP 36.5; O2SAT 97
[2024-08-29 16:04] VITALS: PULSE 109; O2SAT 97
[2024-08-29 16:29] LABS: Absolute Basophil Count 0.09 10^3/uL (0.0-0.2); Absolute Monocyte Count 1.55 10^3/uL (0.1-0.8); Basophils % 0.5 %; Eosinophils % 1.2 %; HCT 35.9 % (36.0-46.0); HGB 12.1 g/dL (11.2-15.7); Immature Grans % 2.7 %; Lymphocytes % 12.3 %; MCH 29.7 pg (27.0-33.0); MCHC 33.7 % (32.0-36.0); MCV 88 fL (80-95); Monocytes % 8.3 %; Platelet Count 322 10^3/uL (130-400); RBC 4.07 10^6/uL (3.93-5.22); RDW 12.2 % (11.7-14.6); RDW-SD 39.3 fL; WBC 18.66 10^3/uL (4.4-10.8)
[2024-08-29 16:31] LABS: Absolute Eosinophil Count 0.22 10^3/uL (0.0-0.7)
[2024-08-29 16:43] LABS: Diff Comment Agrees w/ Instrument; RBC Morphology Normal
[2024-08-29 16:45] LABS: ALT 15 U/L (14-59); AST 18 U/L (15-37); Albumin 2.8 g/dL (3.4-5.0); Alkaline Phosphatase 80 U/L (46-116); Anion Gap 8.4 mmol/L (3-11); BUN 9 mg/dL (7-18); Bilirubin, Total 0.1 mg/dL (0.2-1.0); CO2 23.6 mmol/L (21.0-32.0); CREATININE 0.7 mg/dL (0.55-1.02); Calcium 9.1 mg/dL (8.5-10.1); Chloride 104 mmol/L (98-107); Glucose 94 mg/dL (74-106); Sodium 136 mmol/L (136-145); Total Protein 7.4 g/dL (6.4-8.2)
--- NOTE | 2024-09-29 09:18 | W.OBNST ---
Date of service: 08/29/24 Time of Service: 16:45 NST Evaluation Reason for NST Reasons for Nonstress Test: OTHER, SEE COMMENT Reason for NST Other: dizziness Gestational Age Gestational Age in Weeks and Days: 27 Weeks and 3Days Test and Monitor Explained Test/Monitor Explained: Test Explained, Monitor Explained and Patient Verbalized Understanding Vital Signs Blood Pressure: 124/75 Pulse: 100 Temperature: 97.7 F Urine Results Urine Protein: Positive Urine Ketones: Negative Urine Glucose: Negative Urine Blood: Negative NST Information Date on Monitor: 08/29/24 Time on Monitor: 15:55 Date off Monitor: 08/29/24 Time off Monitor: 16:41 Total Time on Monitor: 46 NST Interventions: PO Hydration NST Evaluation Patient States Movement: Present FHR Baseline: 145 Variability: Moderate 6-25 bpm Accelerations: 15x15 and 10x10 Decelerations: None NST Results: Reactive Note Ultrasound Done: N/A. NST Note Note: wellbeing verified, no PTL vital signs WNL Otoscope exam of external ear canals reveals dried blood in left ear, no active bleeding Referral made to ENT Pt discharged to home, note for work given as pt feels too dizzy to drive safely NST Reviewed and Verified by: Kate Wiggins
[2024-09-29 09:21] VITALS: BP 124/75; PULSE 100; TEMP 36.5
== END 2024-08-29 17:09 | disposition other institution (70) ==
LOC: BCD 14:44 → OBS 15:52
PROVIDERS: Visit Provider Advanced Practice Midwife
DX: O99.891 Other specified diseases and conditions complicating pregnancy (principal); R42 Dizziness and giddiness; Z3A.27 27 weeks gestation of pregnancy
CPT/HCPCS: 59025; 36415; 80053; 85025

== ENCOUNTER 2024-09-07 02:17 | Outpatient (CLI) | payer MEDICAID, SELFPAY ==
[2024-09-07 14:10] LABS: HCT 37.2 % (36.0-46.0); HGB 12.2 g/dL (11.2-15.7); MCH 29.3 pg (27.0-33.0); MCHC 32.8 % (32.0-36.0); MCV 89 fL (80-95); MPV 9.5 fL (8.0-11.0); Platelet Count 395 10^3/uL (130-400); RBC 4.17 10^6/uL (3.93-5.22); RDW 12.8 % (11.7-14.6)
[2024-09-07 14:28] LABS: Glucose,1 Hr (Glucola) 89 mg/dL (80-140)
[2024-09-07 19:48] LABS: TSH (W/Ref FT4) 2.43 uIU/mL (0.36-3.74)
[2024-09-08 09:12] LABS: Hepatitis B Surface Ag Negative (Negative)
[2024-09-08 09:49] LABS: Hepatitis C Ab w Rflx HCV PCR Negative (Negative)
[2024-09-08 10:09] LABS: HIV-1/2 Ag & Ab Screen Negative (Negative)
[2024-09-08 12:39] LABS: Rubella IgG Ab (UVM) Positive (See Note); Varicella IgG Antibody Positive (See Note)
[2024-09-09 15:36] LABS: Syphilis IgG w/Reflex Nonreactive (Nonreactive)
== END 2024-09-07 02:18 | disposition home or self-care (01) ==
LOC: LBO 02:17
PROVIDERS: Advanced Practice Midwife; Visit Provider Advanced Practice Midwife
DX: Z34.92 Encounter for supervision of normal pregnancy, unspecified, second trimester (principal); R42 Dizziness and giddiness
CPT/HCPCS: 36415; 82950; 85027; 86787; 86803; 86850; 86900; 86901; 87340; 87389; 84443; 86762; 86780

== ENCOUNTER 2024-09-07 13:49 | Outpatient (REF) | payer MEDICAID, SELFPAY ==
[2024-09-07 15:45] LABS: *AMPHETAMINES SCREEN URINE Negative (Negative); *BARBITURATES SCREEN URINE Negative (Negative); *BENZODIAZEPINES SCREEN URINE Negative (Negative); Cannabinoids THC Negative (Negative); Cocaine Screen,Urine Negative (Negative); METHADONE URINE SCREEN Negative (Negative); OPIATES URINE SCREEN Negative (Negative)
[2024-09-07 15:51] LABS: Tricyclic Antidepressants Negative (Negative)
[2024-09-08 11:23] LABS: Fentanyl Scr w/Rfx Confirm Negative ng/mL (<1)
[2024-09-08 11:46] LABS: Chlamydia Result Negative (Negative); GC Result Negative (Negative)
[2024-09-10 14:04] LABS: Buprenorphine Negative ng/mL (Cutoff: 5.0); Norbuprenorphine Negative ng/mL (Cutoff: 2.5)
== END 2024-09-07 13:50 | disposition home or self-care (01) ==
LOC: LBN 13:49
PROVIDERS: Visit Provider Advanced Practice Midwife
DX: Z34.92 Encounter for supervision of normal pregnancy, unspecified, second trimester (principal)
CPT/HCPCS: 80307; 80348; 87491; 87591

== ENCOUNTER 2024-10-30 11:15 | Outpatient (CLI) | payer MEDICAID, SELFPAY ==
[2024-10-30 11:46] VITALS: BP 132/80; PULSE 102; RESP 18
[2024-10-30 11:55] VITALS: BP 130/82; PULSE 102
[2024-10-30 12:15] VITALS: BP 132/79; PULSE 100
[2024-10-30] MEDS: Acetaminophen 500 MG TAB 1000 MG PO (12:30)
[2024-10-30 12:36] VITALS: BP 130/82; PULSE 102
--- NOTE | 2024-10-30 13:49 | W.OBNST ---
Date of service: 10/30/24 Time of Service: 13:49 NST Evaluation Reason for NST Reasons for Nonstress Test: OTHER, SEE COMMENT Reason for NST Other: maternal anxiety, states feet and hands are swollen Gestational Age Gestational Age in Weeks and Days: 36 Weeks and 2Days Test and Monitor Explained Test/Monitor Explained: Test Explained, Monitor Explained and Patient Verbalized Understanding Vital Signs Blood Pressure: 130/82 Pulse: 102 Urine Results Urine Protein: Negative Urine Ketones: Negative Urine Glucose: Negative Urine Blood: Negative NST Information Date on Monitor: 10/30/24 Time on Monitor: 11:43 Date off Monitor: 10/30/24 Time off Monitor: 12:25 Total Time on Monitor: 42 NST Interventions: PO Hydration Contraction Frequency: 2-6min, difficult to palpate, pt not noticing most of them NST Evaluation Patient States Movement: Present FHR Baseline: 145 Variability: Moderate 6-25 bpm Accelerations: 15x15 Decelerations: None NST Results: Reactive Note Ultrasound Done: N/A. NST Note Note: pedal edema noted at trace, urine negative for protein normotensive. SVE performed due contractions on tracin-2/thick, posterior, firm, intact membranes, cephalic presentation. NST Reviewed and Verified by: Kate Wiggins
[2024-10-30 13:51] VITALS: BP 130/82; PULSE 102
== END 2024-10-30 12:30 ==
LOC: BCD 11:18 → OBS 11:54
PROVIDERS: Visit Provider Advanced Practice Midwife
DX: Z3A.36 36 weeks gestation of pregnancy (principal); O99.891 Other specified diseases and conditions complicating pregnancy; F41.9 Anxiety disorder, unspecified; R22.43 Localized swelling, mass and lump, lower limb, bilateral; R22.33 Localized swelling, mass and lump, upper limb, bilateral
CPT/HCPCS: 59025

== ENCOUNTER 2024-11-04 16:22 | Outpatient (REF) | payer MEDICAID, SELFPAY | END 2024-11-04 16:23 | disposition home or self-care (01) | LOC: LBN 16:22 | PROVIDERS: Visit Provider Obstetrics & Gynecology | DX: Z34.93 Encounter for supervision of normal pregnancy, unspecified, third trimester (principal) | CPT/HCPCS: 87081 ==

== ENCOUNTER 2024-11-08 01:37 | Outpatient (CLI) | payer MEDICAID, SELFPAY ==
--- NOTE | 2024-11-08 07:00 | DI.US_ITS ---
Exam(s) US OB VALDEMAR WEIGHT EXAM: US OB VALDEMAR WEIGHT CLINICAL HISTORY: Short fundal heights (34 cm at 37 weeks),SMALL FOR AGE,[id number]. TECHNIQUE: Transabdominal obstetrical ultrasound was performed. COMPARISON: US US OB F/U FACIAL/LVOT/RVOT from 07/29/2024 FINDINGS: There is a single viable intrauterine gestation with cardiac activity identified-121 bpm The fetus is presently in cephalic position . Amniotic fluid: There is a normal amount of amniotic fluid with an VALDEMAR of 13.84cm. Placental location: The placenta is posterior grade 2,with no evidence of placenta previa. Dating parameters place this at approximately 36 weeks and 1 day gestational age, implying RUFINO of 12/05/2024. BPD measures 36 weeks and 4 days HC measures 37 weeks and 5 days AC measures 35 weeks and 6 days FL measures 34 weeks and 3 days Estimated weight is 2757 gm-6 pounds 1 ounce Fetus is at the 16th percentile on the Hadlock scale. IMPRESSION:: Viable 3rd trimester gestation, as described above. Fetus is at the 16th percentile on the Hadlock scale. Posterior placenta. Normal amount of amniotic fluid. DATA REPOSITORY:
== END 2024-11-08 01:57 ==
LOC: DI 01:37
PROVIDERS: Visit Provider Obstetrics & Gynecology
DX: O36.5993 Maternal care for other known or suspected poor fetal growth, unspecified trimester, fetus 3 (principal); Z3A.38 38 weeks gestation of pregnancy
CPT/HCPCS: 76816

== ENCOUNTER 2024-11-13 20:21 | Outpatient (CLI) | payer MEDICAID, SELFPAY ==
[2024-11-13 21:41] VITALS: BP 142/86; PULSE 86
[2024-11-13 21:45] VITALS: BP 140/87; PULSE 90
[2024-11-13 21:49] VITALS: BP 140/87; PULSE 90; TEMP 36.7
[2024-11-13 22:00] VITALS: BP 127/88; PULSE 94
[2024-11-13 22:02] LABS: Bilirubin Negative (Negative); Blood Negative (Negative); Clarity Clear (Clear); Glucose Negative (Negative); Ketones Negative (Negative); Leukocyte Esterase Trace (Negative); Nitrite Negative (Negative); Urobilinogen 0.2 mg/dL (Up to 0.2)
[2024-11-13 22:11] LABS: Bacteria Negative HPF (Negative); C & S Indicated? No; Crystals Negative HPF (Negative); Epithelial Cells Rare HPF (Negative); Mucus Negative (Negative); RBC 0-2 HPF (0-2); WBC 0-2 HPF (0-5)
[2024-11-13 22:20] LABS: MCH 28.5 pg (27.0-33.0); MCHC 32.5 % (32.0-36.0); MCV 88 fL (80-95); MPV 10.3 fL (8.0-11.0); Platelet Count 306 10^3/uL (130-400); RBC 4.56 10^6/uL (3.93-5.22); RDW 12.6 % (11.7-14.6); RDW-SD 40.5 fL; WBC 14.87 10^3/uL (4.4-10.8)
[2024-11-13 22:36] LABS: ALT 15 U/L (14-59); AST 20 U/L (15-37); Albumin 2.7 g/dL (3.4-5.0); Alkaline Phosphatase 153 U/L (46-116); Anion Gap 9.6 mmol/L (3-11); BUN 11 mg/dL (7-18); Bilirubin, Total 0.2 mg/dL (0.2-1.0); CO2 25.4 mmol/L (21.0-32.0); CREATININE 0.8 mg/dL (0.55-1.02); Calcium 9.7 mg/dL (8.5-10.1); Chloride 102 mmol/L (98-107); Estimated GFR 108.11 (mL/min/1.73m2); Glucose 101 mg/dL (74-106); Potassium 3.9 mmol/L (3.5-5.1); Sodium 137 mmol/L (136-145); Total Protein 7.2 g/dL (6.4-8.2); Uric Acid 5.6 mg/dL (2.6-6.0)
[2024-11-13 23:01] LABS: COMMENT (LAB VIEW ONLY) 13.57 mg/dL; PROTEIN < 6.0 mg/dL
--- NOTE | 2024-11-14 10:59 | PDOC.NST_ITS ---
Date of service: 11/14/24 Time of Service: 11:00 NST Evaluation Reason for NST Reasons for Nonstress Test: OTHER, SEE COMMENT Reason for NST Other: Right sided pain Gestational Age Gestational Age in Weeks and Days: 38 Weeks and 2Days Test and Monitor Explained Test/Monitor Explained: Test Explained, Monitor Explained and Patient Verbalized Understanding Vital Signs Blood Pressure: 140/87 Pulse: 90 Temperature: 98.1 F Urine Results Urine Protein: Negative Urine Ketones: Negative Urine Glucose: Negative Urine Blood: Negative NST Information Date on Monitor: 11/13/24 Time on Monitor: 21:38 Date off Monitor: 11/13/24 Time off Monitor: 22:50 Total Time on Monitor: 72 NST Interventions: None NST Evaluation Patient States Movement: Present FHR Baseline: 135 Variability: Moderate 6-25 bpm Accelerations: 15x15 Decelerations: None NST Results: Reactive Note Ultrasound Done: N/A. NST Note Note: Ely called and reported lower right quadrant discomfort which she is also feeling in her low back. The pain subsided on her way to the Center. neg CVAT. Uterine irritability noted. SVE - Cervix FT/ -2/50% soft. BP elevated and preeclampsia labs drawn. All WNL. Urinalysis WNL. Reviewed signs of labor and she will follow up at [facility] in 3 days. NST Reviewed and Verified by: Yu Flores
[2024-11-14 11:02] VITALS: BP 140/87; PULSE 90; TEMP 36.7
== END 2024-11-13 23:04 | disposition home health service (06) ==
LOC: BCD 20:22 → OBS 21:37
PROVIDERS: Visit Provider Advanced Practice Midwife
DX: O99.891 Other specified diseases and conditions complicating pregnancy (principal); R10.31 Right lower quadrant pain; Z3A.38 38 weeks gestation of pregnancy
CPT/HCPCS: 36415; 80053; 85027; 59025; 81003; 81015; 82565; 84156; 84550

== ENCOUNTER 2024-11-18 07:40 | Outpatient (CLI) | payer MEDICAID, SELFPAY ==
[2024-11-18 10:06] VITALS: BP 136/76; PULSE 84; TEMP 36.8
[2024-11-18 10:36] LABS: HCT 37.1 % (36.0-46.0); HGB 12.3 g/dL (11.2-15.7); MCHC 33.2 % (32.0-36.0); MCV 88 fL (80-95); MPV 10.5 fL (8.0-11.0); Platelet Count 299 10^3/uL (130-400); RBC 4.24 10^6/uL (3.93-5.22); RDW 12.8 % (11.7-14.6); RDW-SD 40.6 fL; WBC 13.31 10^3/uL (4.4-10.8)
[2024-11-18 10:59] LABS: COMMENT (LAB VIEW ONLY) 44.14 mg/dL; PROTEIN 14.2 mg/dL; Prot/Crea Ur Ratio 0.32
[2024-11-18 11:05] LABS: ALT 17 U/L (14-59); AST 22 U/L (15-37); Albumin 2.4 g/dL (3.4-5.0); Alkaline Phosphatase 140 U/L (46-116); Anion Gap 7.6 mmol/L (3-11); BUN 8 mg/dL (7-18); Bilirubin, Total 0.2 mg/dL (0.2-1.0); CO2 26.4 mmol/L (21.0-32.0); CREATININE 0.8 mg/dL (0.55-1.02); Calcium 8.8 mg/dL (8.5-10.1); Chloride 102 mmol/L (98-107); Estimated GFR 108.11 (mL/min/1.73m2); Glucose 99 mg/dL (74-106); Sodium 136 mmol/L (136-145); Total Protein 6.8 g/dL (6.4-8.2)
--- NOTE | 2024-11-18 12:12 | W.OBNST ---
Date of service: 11/18/24 Time of Service: 12:12 NST Evaluation Reason for NST Reasons for Nonstress Test: GESTATIONAL HYPERTENSION Gestational Age Gestational Age in Weeks and Days: 39 Weeks and 0Days Test and Monitor Explained Test/Monitor Explained: Test Explained, Monitor Explained and Patient Verbalized Understanding Vital Signs Blood Pressure: 136/76 Pulse: 84 Temperature: 98.2 F NST Information Date on Monitor: 11/18/24 Time on Monitor: 10:07 Date off Monitor: 11/18/24 Time off Monitor: 11:10 Total Time on Monitor: 63 NST Interventions: PO Hydration Contraction Frequency: rare NST Evaluation Patient States Movement: Present FHR Baseline: 135 Variability: Moderate 6-25 bpm Accelerations: 15x15 Decelerations: None NST Results: Reactive Note Ultrasound Done: N/A. NST Note Note: cvx 1/60% posterior, vtx -3, intact membranes CMP and CBC nml, cr/pr ratio 0.32, will being 24 hr urine collection tomorrow RTO on Thursday to drop off urine and recheck BP. NST Reviewed and Verified by: Kate Wiggins
[2024-11-18 12:13] VITALS: BP 136/76; PULSE 84; TEMP 36.8
== END 2024-11-18 12:09 | disposition other institution (70) ==
LOC: BCD 07:40 → OBS 10:04
PROVIDERS: Visit Provider Advanced Practice Midwife
DX: O13.3 Gestational [pregnancy-induced] hypertension without significant proteinuria, third trimester (principal); Z3A.39 39 weeks gestation of pregnancy
CPT/HCPCS: 36415; 80053; 85027; 59025; 82565; 84156

== ENCOUNTER 2024-11-20 07:35 | Outpatient (CLI) | payer MEDICAID, SELFPAY ==
[2024-11-20 09:56] VITALS: BP 131/84; PULSE 86
[2024-11-20 10:06] VITALS: BP 131/84; PULSE 86; RESP 16; TEMP 36.6; TEMP 36.7
[2024-11-20 10:14] LABS: HCT 37.3 % (36.0-46.0); HGB 12.4 g/dL (11.2-15.7); MCHC 33.2 % (32.0-36.0); MCV 87 fL (80-95); MPV 10.6 fL (8.0-11.0); Platelet Count 320 10^3/uL (130-400); RBC 4.28 10^6/uL (3.93-5.22); RDW 12.7 % (11.7-14.6); RDW-SD 40.4 fL; WBC 14.59 10^3/uL (4.4-10.8)
[2024-11-20 10:27] LABS: ALT 20 U/L (14-59); AST 22 U/L (15-37); Albumin 2.5 g/dL (3.4-5.0); Alkaline Phosphatase 143 U/L (46-116); Anion Gap 10.3 mmol/L (3-11); BUN 11 mg/dL (7-18); Bilirubin, Total 0.2 mg/dL (0.2-1.0); CO2 23.7 mmol/L (21.0-32.0); CREATININE 0.7 mg/dL (0.55-1.02); Calcium 8.6 mg/dL (8.5-10.1); Chloride 102 mmol/L (98-107); Glucose 86 mg/dL (74-106); Potassium 3.8 mmol/L (3.5-5.1); Sodium 136 mmol/L (136-145); Total Protein 6.7 g/dL (6.4-8.2)
[2024-11-20 10:35] LABS: PROTEIN 9.8 mg/dL (0.0-11.9)
[2024-11-20 10:36] LABS: TOTAL PROTEIN,URINE TIMED 200.9 mg/24hr (0.0-149.1); Total Volume 2050 ml
--- NOTE | 2024-11-20 10:40 | W.OBNST ---
Date of service: 11/20/24 Time of Service: 10:41 NST Evaluation Reason for NST Reasons for Nonstress Test: GESTATIONAL HYPERTENSION Gestational Age Gestational Age in Weeks and Days: 39 Weeks and 2Days Test and Monitor Explained Test/Monitor Explained: Test Explained, Monitor Explained and Patient Verbalized Understanding Vital Signs Blood Pressure: 131/84 Pulse: 86 Temperature: 97.9 F NST Information Date on Monitor: 11/20/24 Time on Monitor: 09:35 Date off Monitor: 11/20/24 Time off Monitor: 10:10 Total Time on Monitor: 35 NST Interventions: PO Hydration NST Evaluation Patient States Movement: Present FHR Baseline: 130 Variability: Moderate 6-25 bpm Accelerations: 15x15 Decelerations: None NST Results: Reactive Note Ultrasound Done: N/A. NST Note Note: BP is WNL, labs repeated and WNL Cvx 2/50% posterior, vtx -3 intact membranes 24 hr urine collection [id number]=417.9 (nml) discharge to home, f/up at next scheduled appt 11/25 in office NST Reviewed and Verified by: Kate Wiggins
[2024-11-20 10:42] VITALS: BP 131/84; PULSE 86; TEMP 36.6
== END 2024-11-20 11:00 ==
LOC: BCD 07:35 → OBS 09:52
PROVIDERS: Visit Provider Advanced Practice Midwife
DX: O13.3 Gestational [pregnancy-induced] hypertension without significant proteinuria, third trimester (principal); Z3A.39 39 weeks gestation of pregnancy
CPT/HCPCS: 36415; 80053; 85027; 59025; 81050; 84155

== ENCOUNTER 2024-11-22 08:18 | Inpatient (IN) | payer MEDICAID, SELFPAY ==
[2024-11-22] VITALS (52 sets, daily range): BP systolic 134–181; BP diastolic 67–104; PULSE 82–150; RESP 14–134; TEMP 36.4–37.1; O2SAT 63–100
--- NOTE | 2024-11-22 08:19 | W.PM.OBHPL1 ---
Date of service: 11/22/24 Time of Service: 08:19 Assessment and Plan Assessment and plan (1) PROM (premature rupture of membranes): Status: Acute Assessment and plan: A: 19 yo @ 39+4 wks, SROM clear fluid confirmed 0630 today Vargas score is 5, category 1 tracing GBS negative, normotensive & afebrile on admission, not in labor Has been followed for one episode mild range BP noted over 1 week ago Hx depression/anxiety, took SSRI for part of but decided to discontinue meds No increased risk for SD, increased risk for PPH due to IOL process P: Admit, CBC, T&S, options to address PROM discussed with pt Pt agrees to 1 dose of misoprostel PO 50 mcg, is planning unmedicated (2) 39 weeks gestation of : Status: Acute (3) Housing insecurity: Status: Acute Assessment and plan: Complex social situation: Housing and financial insecurity, hx depression/anxiety unmedicated at this time FOB has not been involved during Pt and current boyfriend are staying with a friend in [place] Pt believes they are welcome there correction as will be the new baby OB-HPI Labor/Delivery History of Present Illness Reason for Visit: Labor Chief Complaint: Suspected Rupture of Membranes , Associated Signs and Symptoms of Suspected ROM: Gush of water (clear) came out at 0630, another gush upon arrival to unit. No pain, no bleeding, no vomiting.. RUFINO Calculator Estimated Delivery Date Method Current WG Current Estimate 11/25/24 LMP (Certain) 39w 4d History of Present Expected Delivery Route/Plan - CNM FOB not involved, current boyfriend - Lorna (akenma Hope) Farhan (has 8 yo daughter) BB yes to circ Wants to labor in the tub, avoid epidural (see consult notes [facility] Support team is Lorna Specific Issues/Plan 1. transfer from [facility] [place] [address]+ early preg, treated & SONIDO neg, recheck 28 weeks=neg/neg 3. 5P screen+, initial UDS neg, 28 wk UDS=negative 4. Depression, start Zoloft 50mg 07/22/24, reassess NV 4a. Intolerant of 50 mg tab, reduce to 25 mg and add Zofran prior to taking 4b. Eval by [facility] 08/10: ref to [facility] and [facility]., f/up with TAYLOR on 08/31/24, pink sheet to L&D 4c. sertraline increased to 75mg PO. At 35 wks, pt stopped taking sertraline, declines any medication 4d. Consult requested with Dr. Murray at [facility] 4e. [facility] telehealth 11/03, pt reports they encouraged her to restart medication, pt still declines Rx 5. Hx left ear surgery and partial hearing loss, childhood ear infections & multiple tube insertions 5a. 27 wk eval for dizziness on BC, blood seen in left ear canal, pt to stop driving, ENT referral ordered 5b. symptoms resolved, normal exam noted by Dr Lewis with tubes in ears, recheck by ENT 10/26 6. Housing needs - Applied through [place] 7. Migraine - Taking magnesium daily. 09/21/24: migraines every few days, lasting whole day, improves with sleep 8. Vomiting with chest pain - neg lab workup and EKG at ED 07/04/24, taking Unisom and B6 09/21/24 9. Scoliosis - offered anesthesia consult to Ely. She had anesthesia consult at [facility], 9a. Sola SMITH spoke w/Ely 09/22 by phone, advised epidural an option but may not provide pain relief completely on one side. 10. GERD, 10 mg Pepcid BID starting @ 35 weeks 11. Seen at center for lower right quadrant pain. BP elevated - Labs WNL Assessment: History Reviewed & Current Informed Consent Informed Consent: Induction of Labor (for PROM, consents to cervical ripening) and Risk,Benefits,Alternatives Discussed Review of Systems Narrative: ROS noncontributory other than HPI PFSH All Active Problems (Updated 11/22/24 @ 10:45 by Kate Wiggins) Housing insecurity (Acute) 39 weeks gestation of (Acute) PROM (premature rupture of membranes) (Acute) Scoliosis (Acute) Vertigo (Acute) Migraine aura, persistent (Acute) Financial insecurity (Acute) Anxiety disorder, unspecified (Acute) Depression (Chronic) Dx age 14y.o, unsure of medications she has used in past, never for more than 1 week Chlamydia infection during , antepartum (Acute) (Acute) Medical History (Updated 11/22/24 @ 10:45 by Kate Wiggins) Pelvic pain Unspecified hearing loss, left ear Developmental delay H/O bronchopulmonary dysplasia 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 Asthma Family history of alcohol abuse Surgical History H/O myringotomy H/O adenoidectomy Family History Father Bipolar affective disorder Substance use disorder Paternal Aunt Bipolar affective disorder Sister Asthma Depression Paternal Grandmother Breast cancer Depression Diabetes Mother Hyperlipidemia Hypertension Uncle Hyperlipidemia Hypertension Maternal Grandmother Hyperlipidemia Heart disease Hypertension Paternal Grandfather Alcohol use disorder Social History Smoking/Tobacco Use Status: Never Smoking risk assessment performed?: Yes Alcohol Intake: never Drug use: Never Substance use type: does not use Housing: apartment History History 2 Para 0 Hx # Term Pregnancies 0 Multiple births 0 Hx # Pregnancies 0 Ectopic pregnancies 0 AB induced 0 Hx Number of Living Children 0 AB spontaneous 1 Meds Allergies and Home Medications Allergies Allergy/AdvReac Type Severity Reaction Status Date / Time adhesive Allergy Mild rash Verified 11/16/24 13:43 Home Medications ?Medication ?Instructions ?Recorded ?Confirmed ?Type pyridoxine (vitamin B6) 25 mg 25 mg PO DAILY 09/07/24 11/16/24 History tablet ondansetron 4 mg disintegrating 4 mg PO Q6H PRN nausea and 10/20/24 11/16/24 Rx tablet vomiting #30 tabs vitamin no.180-ferrous 1 tab PO DAILY #90 tabs 10/20/24 11/16/24 Rx fumarate 27 mg-folic acid 1 mg tablet ( Plus Vitamin-Mineral) famotidine 10 mg tablet (Acid 10 mg PO BID heartburn #60 tabs 10/24/24 11/16/24 Rx [place] (famotidine)) doxylamine succinate 25 mg tablet 25 mg PO QHS PRN 11/04/24 11/16/24 History (Unisom (doxylamine)) Exam Physical Exam Vital signs: Pulse BP 82 136/84 11/22/24 08:13 11/22/24 08:13 Vital Signs Reviewed: Yes Constitutional Constitutional: no acute distress, average body habitus and cooperative Detailed Labor and Delivery Exam Dilation: 3 Effacement (%): 60 station: -3 Cervix position: posterior Consistency: medium VARGAS Score(Cervical Ripeness Score): 5 Amniotic Membrane Status: Ruptured Rupture Method: Spontaneous Amniotic Fluid: Clear Nitrazine: Positive Ferning: Present Contraction Frequency(min): rare Fetus A Heart Rate Baseline: 135 Monitor Accelerations: Present Monitor Decelerations: None Variability: Moderate (6-25 BPM) Categories: Category I Est. Weight: 7 lb 7.931 oz Est. Weight: 3400 gms Date of Membrane Rupture: 11/22/24 Time of Membrane Rupture: 06:30 HEENT Exam HEENT Exam: Normal Neck Exam Neck Exam: Normal Chest/Brest/Axilla Exam Chest Exam: Normal Breast Exam Breast Exam: Not Done Respiratory Exam Respiratory Exam: Normal Cardiovascular Exam Cardiovascular Exam: Normal Abdominal Exam Abdominal Exam: Normal (gravid, nontender) Rectal Exam Rectal Exam: Normal Exam Exam: Normal Extremities Exam Extremities Exam: Normal Back/Spine/Pelvis Exam Back Exam: Normal Pelvis Adequate: Yes Skin Exam Skin Exam: Normal Neurological Exam Neurological Exam: Normal Psychiatric Exam Psychiatric Exam: Normal Results Results Group Beta Strep: Negative Blood Type: A+ Rubella Status: Immune Varicella Immunity: Immune Risk Assessment Risk for Shoulder Dystocia Historical/Initial OB: NEGATIVE FOR: Pelvic Abnormality, Pre- BMI>30, Previous Shoulder Dystocia or Previous Macrosomia 36 Weeks: NEGATIVE FOR: Current Gestational DM, EFW>4500gms or Maternal Weight Gain>40lbs Increased Risk?: No Delivery Plan @ 36wks: Risk for Pre-Eclampsia Date Initiated/Initials: not indicated Yes, if one or more: NEGATIVE FOR: Hx Pre-E/Gest HTN, Chronic HTN, Multiple Gestation, Pre-gestational DM, Renal Disease, Systemic Lupus or APA Syndrome Yes, if 2 or more: POSITIVE FOR: Nulliparity; NEGATIVE FOR: Age>= 35 yrs, >10yr btwn pregnancies, BMI>30, ethinicty, Mother/Sister w/ Pre-E or Previous IUGR Risk for Post- Hemorrhage Initial: NEGATIVE FOR: Multiple Gestation, Previous PPH, Known Clotting Deficiency, Grand Multiparity or Anticoagulation 36 Weeks: NEGATIVE FOR: Anemia, hgb<10, Low platelets(thrombocytopenia), Gestational HTN or Pre-E, Polyhydraminios or EFW>4500gms At Risk?: No (due to IOL process) Counseled re: Active Management: Yes Risks Reviewed Risks Reviewed Upon Admission: Yes
--- NOTE | 2024-11-22 08:51 | W.OBNST ---
Date of service: 11/22/24 Time of Service: 08:51 NST Evaluation Reason for NST Reasons for Nonstress Test: OTHER, SEE COMMENT Reason for NST Other: ? SROM Gestational Age Gestational Age in Weeks and Days: 39 Weeks and 4Days Test and Monitor Explained Test/Monitor Explained: Test Explained, Monitor Explained and Patient Verbalized Understanding Vital Signs Blood Pressure: 136/84 Pulse: 82 Temperature: 98.1 F Urine Results Urine Protein: Negative Urine Ketones: Negative Urine Glucose: Negative Urine Blood: Negative NST Information Date on Monitor: 11/22/24 Time on Monitor: 07:50 Date off Monitor: 11/22/24 Time off Monitor: 08:20 Total Time on Monitor: 30 NST Interventions: PO Hydration NST Evaluation Patient States Movement: Present FHR Baseline: 140 Variability: Moderate 6-25 bpm Accelerations: 15x15 Decelerations: None NST Results: Reactive Note Ultrasound Done: N/A. NST Note Note: Admit to L&D NST Reviewed and Verified by: Kate Wiggins
[2024-11-22 09:03] LABS: HCT 39.3 % (36.0-46.0); MCH 28.9 pg (27.0-33.0); MCHC 33.1 % (32.0-36.0); MCV 87 fL (80-95); MPV 11.6 fL (8.0-11.0); Platelet Count 273 10^3/uL (130-400); RDW 12.9 % (11.7-14.6); RDW-SD 40.6 fL; WBC 15.73 10^3/uL (4.4-10.8)
[2024-11-22] MEDS: miSOPROStol 50 MCG TAB PO (10:20)
--- NOTE | 2024-11-22 14:29 | W.PM.OBNL1 ---
Date of service: 11/22/24 Time of Service: 14:37 Pelvic Exam Dilation: 4 Effacement (%): 100 station: -2 Cervix Position: mid Consistency: soft Contractions Monitor Mode: External Contraction Frequency(min): q3-4 Intensity: Moderate Fetus A Monitor: External (US) Heart Rate Baseline: 140 Variability: Moderate (6-25 BPM) Categories: Category I Accelerations: Present Decelerations: None Amniotic Membrane Status: Ruptured Assessment and Plan Assessment and plan (1) PROM (premature rupture of membranes): Status: Acute Assessment and plan: A: Cervix favorable, progressing to active labor Category 1 tracing, coping well with support P: Expectant management at this time Anticipate Objective Vital Signs Reviewed: Yes Objective Narrative Objective Narrative: Pt vomited after trying nitrous Coping well with increased contraction pattern, byfrnd at bedside providing support Results Hemoglobin/Hematocrit: Hgb 13.0 g/dL (11.2-15.7) 11/22/24 08:30 Hct 39.3 % (36.0-46.0) 11/22/24 08:30
--- NOTE | 2024-11-22 17:18 | W.PM.OBNL1 ---
Date of service: 11/22/24 Time of Service: 17:18 Pelvic Exam Dilation: 6.5 Effacement (%): 100 station: -1 Contractions Monitor Mode: Palpation Contraction Frequency(min): q3 minutes Intensity: Moderate/Strong Fetus A Monitor: Doppler Heart Rate Baseline: 140 FHR Rhythm: Regular Characteristics: Normal Amniotic Membrane Status: Ruptured Assessment and Plan Assessment and plan (1) PROM (premature rupture of membranes): Status: Acute Assessment and plan: A: Active labor in primipara after single dose miso for PROM, unmedicated Mild range BP noted since arrival, no severe features, (labs from 2 days ago WNL) Category 1 tracing followed by reassuring FHT checks with doppler P: Pt declines narcotic analgesia or epidural at this time Expectant management, anticipate Close attention to BP monitoring, consider pain response vs gHTN Plan repeat CMP, Dr. Ahn available for consult Objective Vital Signs Reviewed: Yes Objective Narrative Objective Narrative: Pt beginning to vocalize with contractions Requested cvx exam after getting out of tub Found to be 6-7/100% vtx -1, pt felt encouraged by progress Subjective Interval history since last seen: contractions increasing, very intense, nitrous makes her nauseous, tried the tub but it didn't help much, asking for information about medications and epidural options, desires cvx exam.
[2024-11-22 17:51] LABS: ALT 24 U/L (14-59); AST 26 U/L (15-37); Albumin 2.7 g/dL (3.4-5.0); Alkaline Phosphatase 160 U/L (46-116); Anion Gap 11.7 mmol/L (3-11); BUN 9 mg/dL (7-18); Bilirubin, Total 0.2 mg/dL (0.2-1.0); CO2 23.3 mmol/L (21.0-32.0); CREATININE 0.6 mg/dL (0.55-1.02); Chloride 104 mmol/L (98-107); Glucose 74 mg/dL (74-106); Potassium 4.3 mmol/L (3.5-5.1); Sodium 139 mmol/L (136-145); Total Protein 6.7 g/dL (6.4-8.2)
--- NOTE | 2024-11-22 19:15 | NUR.NOTE ---
Nursing Note:handoff report given to RNs at 1900
--- NOTE | 2024-11-22 19:47 | W.PM.OBNL1 ---
Date of service: 11/22/24 Time of Service: 19:48 Pelvic Exam Dilation: 9 Effacement (%): 100 station: +1 Contractions Monitor Mode: Palpation Contraction Frequency(min): 2-3 Intensity: Moderate/Strong Fetus A Monitor: Doppler Heart Rate Baseline: 140 FHR Rhythm: Regular Characteristics: Normal Amniotic Membrane Status: Ruptured Assessment and Plan Assessment and plan (1) PROM (premature rupture of membranes): Status: Acute Assessment and plan: A: Transition phase in primipara, unmedicated PROM x14 hrs clear fluids P: Continue expectant management Intermittent auscultation Anticipate Objective Vital Signs Reviewed: Yes Objective Narrative Objective Narrative: Pt coping well, good support from byfrnd Slight bloody show, rectum has palpable hard stool Mild range pressures noted in unmedicated active labor Subjective Interval history since last seen: moving around the room, reporting increasing pelvic pressure, generally standing or sqatting, sipping water
--- NOTE | 2024-11-22 22:25 | W.PM.OBNL1 ---
Date of service: 11/22/24 Time of Service: 22:25 Pelvic Exam Dilation: 10 station: +3 Contractions Monitor Mode: External Contraction Frequency(min): q2 min Intensity: Strong Fetus A Monitor: Internal (FSE) Heart Rate Baseline: 110 Variability: Moderate (6-25 BPM) Categories: Category I Accelerations: Present Decelerations: Early Amniotic Membrane Status: Ruptured Assessment Note: FSE not clear due to artifact Assessment and Plan Assessment and plan (1) 39 weeks gestation of : Status: Acute Assessment and plan: A: pt back to bed for exam, anterior lip noted and FSE Placed Initial bradyacardia noted that resolved with position changes IV access initiated and 500 ml bolus given, [address] Ahn notified of pt status and reviewed tracing 2nd stage huddle completed, now fully and +3 P: Strong maternal efforts for anticipated Peds and OB inhouse and on unit Objective Vital Signs Reviewed: Yes Objective Narrative Objective Narrative: elevated BP's noted, in 2nd stage labor without pain medication Subjective Interval history since last seen: excellent pushing efforts
--- NOTE | 2024-11-22 23:24 | OBVDS_ITS ---
Date of service: 11/22/24 Time of Service: 23:24 OB Labor/ Delivery Information Baby A Delivery Delivery Method: Spontaneaous Cephalic Position: Vertex Vertex Position: Right Occipital Anterior Cord Description-Baby A: 3 Vessels and Other (cord looped over right shoulder) Amniotic Fluid: [place] Tinged Quantitative Blood Loss: 200 Delivery Outcome: Liveborn Transferred: Remains with Mother Note: Pt pushed with excellent efforts over a 2 hour period, FSE in place showing early and variable decels, baseline 110-120 with maintained moderate variability, Peds notified to attend delivery due to category 2 tracing for >1 hr, and Dr. Ahn in unit if needed. of a vigorous male over intact perineum, snug left anterior shoulder released with Lexy maneuver, cord noted looped over right shoulder, terminal meconium noted as placed into mother's arms for stimulation and drying, cord segment set aside for cord gas, cord clamped and cut by pt's partner after > 1 minute, cord blood collected, pitocin given IV, Live placenta delivered intact with 3VC. Perineum intact, no vaginal lacerations, no repair indicated, cord gas collected by Dr. Ahn sent to lab. Strong family bonding observed, pt intends to take placenta home. Peds examined infant on mother's chest, apgars 8/9, weight 3270 gms. Providers Nurse Information Technology Professor: Kate Wiggins [facility] Assistant: Heather Chaudhry Nurse: Mary Schwartz Nurse: Yazmin Michelle Labor/Delivery Information Number of Babies in Womb: 1 Steroids Given: None Reason Steroids Not Administered: N/A Group Beta Strep: Negative Antibiotics Administered: No Rubella Status: Immune Blood Type: A+ Varicella Immunity: Immune Shoulder Dystocia: No Stages of Labor Onset of Labor Date: 11/22/24 Onset of Labor Time: 07:00 Complete Dilatation Date: 11/22/24 Complete Dilatation Time: 21:52 Labor - Stage 1 Duration: 14 hours and 52 minutes ROM Baby A: 11/22/24 ROM Baby A: 06:30 ROM Total Time- Baby A: [id number] Delivery Date-Baby A: 11/22/24 Infant Delivery Time-Baby A: 23:02 Labor Stage 2 Duration: 1 hours and 10 minutes Placenta Delivery Date-Baby A: 11/22/24 Placenta Delivery Time-Baby A: 23:08 Labor-Stage 3 Duration: 6 minutes Total Length of Labor-Baby A: 16 hours and 2 minutes Placenta Status: Delivered Baby A Gender: Male Gestational Status: Term (39-41.6 wks) Gestational Age in Weeks/Days: 39 Weeks and 4 Days weight: 7 lb 3.346 oz Weight Comment: 3270 gms Score-1 Minute Interval(Baby A) Heart Rate-1 minute: 100 BPM or Greater Respiratory Effort- 1 minute: Spontaneous/Strong Cry Muscle Tone-1 minute: Active Movement Reflex Response-1 minute: Prompt Response Color-1 minute: Pallor or Cyanosis Total Score-1 minute: 8 Score-5 Minute Interval(Baby A) Heart Rate- 5 minute: 100 BPM or Greater Respiratory Effort-5 minute: Spontaneous/Strong Cry Muscle Tone-5 minute: Active Movement Reflex Response-5 minute: Prompt Response Color-5 minute: Bluish Hands or Feet Total Score- 5 minute: 9 Shoulder Dystocia Delivery Times Date of Delivery of Head: 11/22/24 Time of Delivery of the Head: 23:01 Head to Body Delivery Interval(minutes): 1 Verify No Fundal Pressure Applied Fundal Pressure: No Pressure Applied Arm Under Sympisis Arm Under Symphisis: Left
[2024-11-23] VITALS (9 sets, daily range): BP systolic 122–148; BP diastolic 65–86; PULSE 86–110; RESP 16–17; TEMP 36.8–36.9; O2SAT 98–99
[2024-11-23] MEDS: Acetaminophen 325 MG TAB 650 MG PO ×2 (01:00→13:12)
[2024-11-23] MEDS: Ibuprofen 600 MG TAB PO ×2 (01:00→13:11)
--- NOTE | 2024-11-23 13:27 | OBPPV_ITS ---
Date of service: 11/23/24 Time of Service: 13:28 Assessment and Plan Assessment and plan (1) Housing insecurity: Status: Acute Assessment and plan: Care Management referral made HILLARY Walker notified of delivery and pt's potential needs Pt states she, her partner and are welcome to stay with their friend in [place] for some time (2) Term delivered: Status: Acute Assessment and plan: A: PPD#1, nml recovery Satisfied with experience P: Routine PP care support Plan discharge tomorrow Pt declines hormonal contraception Subjective Subjective Patient comments: No complaints, Pain well controlled, Tolerating diet and Flatus present Patient's Mood: happy baby status: Doing well, Nursing well, Rooming in and Strong Bonding Observed feeding status: Exclusively breast feeding Exam Physical Exam Vital signs: Temp Pulse Resp BP Pulse Ox 98.2 F 89 16 122/70 98 11/23/24 07:50 11/23/24 07:50 11/23/24 07:50 11/23/24 07:50 11/23/24 07:50 Vital Signs Reviewed: Yes Constitutional Constitutional: no acute distress and cooperative HEENT Exam HEENT Exam: Normal Neck Exam Neck Exam: Normal Breast Exam Bilateral: Breast Exam: Normal and Soft Nipple Exam: Normal and Uninjured Respiratory Exam Respiratory Exam: Normal Cardiovascular Exam Cardiovascular Exam: Normal Abdominal Exam Abdomen: Other (soft, nontender) Fundal Exam Fundus: Below Umbilicus and Firm Rectal Exam Rectal Exam: Normal Exam Perineum: Intact Extremities Exam Extremity Exam: Normal, Full ROM and Warm to Touch Back/Spine/Pelvis Exam Back Exam: Normal Skin Exam Skin Exam: Normal Neurological Exam Neurological Exam: Normal Psychiatric Exam Psychiatric Exam: Normal
--- NOTE | 2024-11-23 13:57 | CMPROGNOTE_ITS ---
Date of service: 11/23/24 Time of Service: 13:57 Care Management Progress Note Progress Note Text Progress Note Text: CM was consulted to meet with Ely regarding her housing instability and other social needs. Ely was sitting up in bed when CM met with her. Her baby, Kyle, was in the bassinet next to the bed, sleeping. Ely reported that she and her boyfriend, Jayy (who goes by Lorna), and his nine year old daughter are currently living in [place], renting a floor of her friend's house (one bedroom, living room, shared kitchen/bathroom). She stated that it is small and not ideal, but it is an improvement from her previous living arrangement. She has been in contact with [facility] regarding housing support, but have not been able to finish the applications because Lorna does not currently have an ID. He is working on obtaining an ID, but there have been several barriers. Ely stated that she has a nurse that has been visiting her at home, and will continue after discharge; she is happy to have this service. She also reported that they have 3 squares and WIC, and they feel secure with food at this time. She plans to attempt to obtain [employer] again, but is unsure if she will qualify, as they are all in one household and Lorna is employed. Lorna stated that he works as a writer technical publications, but unfortunately it is inconsistent. He may consider other employment options once he secures his ID. Ely stated that they have what they need to bring baby Kyle home; they have a crib, although it needs to be moved from [facility] to their current home in [place]. [facility] asked Ely about follow up with a mental health provider; she was seen by HILLARY Walker at , during . She stated that she feels that her depression and anxiety were situational, and didn't feel it was necessary to follow up. CM encouraged follow up and provided psychoeducation regarding risk factors for PPD. Ely agreed to have Tori Richardson follow up by phone in a couple weeks. CM will relay this to Tori Richardson at . CM contacted [facility] for follow up regarding community supports, including helping Ely make changes to her health insurance, and to look into other community resources. [facility] will contact Ely by phone. CM will continue to follow. Social Determinants of Health Screening Social Determinants of health last assessed in clinic: 11/23/24 Will the Patient Participate in the Screening?: Yes Do you worry about having a steady place to live?: no Problems where you live: no known problems In the past 12 months, have you had to go without electric, gas, oil or water in your home?: no 1. Within the past 12 months, we worried whether our food would run out before we got money to buy more.: Don't know/refused 2. Within the past 12 months, the food we bought just didn't last and we didn't have money to get more.: Don't know/refused Has lack of transportation kept you from medical appointments or from doing things needed for daily living?: no Has anyone in your life made you feel unsafe or unsupported?: yes How often does anyone, including family and friends, physically hurt you?: Never How often does anyone, including family and friends, insult or talk down to you?: Never How often does anyone, including family and friends, threaten you with harm?: Never How often does anyone, including family and friends, scream or curse at you?: Never HRSN Safety total score: 4 How hard is it for you to pay for the very basics like food, housing, medical care, and heating? Would you say it is:: Somewhat hard Do you want help finding or keeping work or a job?: I do not need or want help If for any reason you need help with day-to-day activities such as bathing, preparing meals, shopping, managing finances, etc., do you get the help you need?: I could use a little more help How often do you feel lonely or isolated from those around you?: Sometimes Do you speak a language other than Marshallese at home?: No Health Related Social Needs Health related social needs: problems related to housing/economic circumstances (Z59.89), problems with daily activities (Z73.9) and feeling lonely/isolated (Z60.8) Health related social needs details: none
[2024-11-23] MEDS: Hamamelis Leaf/Glycerin 100 EACH BOX PR (14:23)
[2024-11-23] MEDS: Dibucaine 1% 28 GM TUBE TP (14:24)
[2024-11-24 02:00] VITALS: BP 139/88; PULSE 84; RESP 17; TEMP 36.8; O2SAT 99
[2024-11-24] MEDS: Ibuprofen 600 MG TAB PO ×2 (02:00→09:43)
[2024-11-24] MEDS: Acetaminophen 325 MG TAB 650 MG PO ×2 (02:00→09:42)
[2024-11-24 08:35] VITALS: BP 117/82; PULSE 92; RESP 16; TEMP 36.4; O2SAT 98
[2024-11-24] MEDS: Dibucaine 1% 28 GM TUBE TP (09:43)
--- NOTE | 2024-11-24 11:15 | DSE_ITS ---
Date of service: 11/24/24 Time of Service: 11:16 DS: Diagnosis Discharge Diagnosis (1) Housing insecurity: Status: Acute Asessment and Plan: Ely is living with a friend but will be looking for other housing soon. Care management met with Ely and did not have any concerns at this time, (2) Term delivered: Status: Acute Asessment and Plan: Caring for baby independently. Pain is managed well with oral analgesics. Voiding without difficulty. well. A - stable mother and baby , Post day 2 P - Discharge to home today. Routine post instructions. [facility] Discharge Plan Disposition Patient Disposition: Home Condition: Good Discharge Details Reason For Visit: Labor Admit Date/Time: 11/22/24 08:18 Admit Provider: Kate Wiggins Attending Provider: Kate Wiggins Primary Care Provider: Sahra,Unknown Hospital Course Hospital Course: on day of admission, nml course, discharge on PPD#2 Home Meds and New Rx's Prescriptions: No Action pyridoxine (vitamin B6) 25 mg tablet 25 mg PO DAILY Unisom (doxylamine) 25 mg tablet 25 mg PO QHS PRN ondansetron 4 mg tablet,disintegrating 4 mg PO Q6H PRN (Reason: nausea and vomiting) Qty: 30 0RF Plus Vitamin-Mineral 27 mg iron- 1 mg tablet 1 tab PO DAILY Qty: 90 4RF famotidine [Acid Public Health Physician (famotidine)] 10 mg tablet 10 mg PO BID Qty: 60 1RF Discharge Instructions Additional Instructions: Please keep your 2 and 6 week appt's with the diamond die maker, call for any and all concerns. Stand Alone Forms: BC Instructions, BC Post Vaginal Deliver Activity:: Activity as Tolerated Equipment/Supplies:: No Equipment Needed Diet:: Normal Diet Discharge Orders Discharge Orders: Discharge Order (Routine); Ordered 11/24/24 Ordered By: Yu Flores OB:DS Summary Summary Vaginal Delivery Method: Spontaneaous Episiotomy Description: None Laceration Description: None Laceration Extension: N/A Contraception Discussed Contraception Discussed: Yes Contraceptive Plan: Undecided, [place] Infant Gender-Baby A: Male weight: 7 lb 3.346 oz Status at Discharge Functional status at discharge: independent ambulation Overall status at discharge: patient is back to baseline Mental Status: mental status grossly normal Speech and Movement: speech and movement normal Mood: congruent mood Affect: normal affect Quality:SDOH Health Related Social Needs: Health related social needs house/econ circumstance da dave activities lonely/isolated Health related social needs details none Health related social needs details: none Exam Physical Exam Vital signs: Temp Pulse Resp BP Pulse Ox 97.5 F L 92 H 16 117/82 98 11/24/24 08:35 11/24/24 08:35 11/24/24 08:35 11/24/24 08:35 11/24/24 08:35 Vital Signs Reviewed: Yes Constitutional Constitutional: no acute distress Respiratory Exam Respiratory Exam: Normal Cardiovascular Exam Cardiovascular Exam: Normal Fundal Exam Fundus: Below Umbilicus and Firm Extremities Exam Extremity Exam: Normal Skin Exam Skin Exam: Normal Psychiatric Exam Psychiatric Exam: Normal (Ely has taken sertraline in the past for depression with fair effect) PFSH All Active Problems (Updated 11/23/24 @ 13:29 by Kate Wiggins) Term delivered (Acute) Housing insecurity (Acute) Scoliosis (Acute) Vertigo (Acute) Migraine aura, persistent (Acute) Financial insecurity (Acute) Anxiety disorder, unspecified (Acute) Depression (Chronic) Dx age 14y.o, unsure of medications she has used in past, never for more than 1 week Medical History (Updated 11/23/24 @ 13:29 by Kate Wiggins) Chlamydia infection during , antepartum PROM (premature rupture of membranes) 39 weeks gestation of Pelvic pain Unspecified hearing loss, left ear Developmental delay H/O bronchopulmonary dysplasia 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 Asthma Family history of alcohol abuse Surgical History H/O myringotomy H/O adenoidectomy Family History Father Bipolar affective disorder Substance use disorder Paternal Aunt Bipolar affective disorder Sister Asthma Depression Paternal Grandmother Breast cancer Depression Diabetes Mother Hyperlipidemia Hypertension Uncle Hyperlipidemia Hypertension Maternal Grandmother Hyperlipidemia Heart disease Hypertension Paternal Grandfather Alcohol use disorder Social History Smoking/Tobacco Use Status: Never Smoking risk assessment performed?: Yes Alcohol Intake: never Drug use: Never Substance use type: does not use Housing: apartment History History 2 Para 0 Hx # Term Pregnancies 0 Multiple births 0 Hx # Pregnancies 0 Ectopic pregnancies 0 AB induced 0 Hx Number of Living Children 0 AB spontaneous 1 DS: Data Vitals/I&O Vitals and I&O: Vital Signs Temperature 97.5 F L 11/24/24 08:35 Temperature 98.1 F 11/22/24 08:52 Temperature Source Oral 11/24/24 08:35 Pulse 92 H 11/24/24 08:35 Pulse 82 11/22/24 08:52 Pulse Rhythm Regular 11/24/24 08:35 Respiratory Rate 16 11/24/24 08:35 Respiratory Depth Normal 11/23/24 20:00 Blood Pressure 117/82 11/24/24 08:35 Blood Pressure 136/84 11/22/24 08:52 Blood Pressure Mean 93 11/24/24 08:35 Pulse Oximetry 98 11/24/24 08:35 Oxygen Delivery Method Room Air 11/22/24 09:49 Oxygen Flow Rate 0 11/22/24 09:49 Pain Level 3 11/24/24 09:43 Comment pt arm bent 11/22/24 23:49 Intake & Output 11/23/24 11/23/24 11/24/24 11:59 23:59 11:59 Output Total 1700 / 1700 Balance -1700 / -1700 Output: Urine 1700 / 1700 Other: Urine Color Yellow
== END 2024-11-24 12:35 | disposition home or self-care (01) | DRG 806 ==
LOC: BCD 08:48 → OBS 08:49
PROVIDERS: Admitting Provider Advanced Practice Midwife; Visit Provider Advanced Practice Midwife
DX: O42.02 Full-term premature rupture of membranes, onset of labor within 24 hours of rupture (principal); O99.354 Diseases of the nervous system complicating childbirth; Z37.0 Single live birth; Z59.819 Housing instability, housed unspecified; Z3A.39 39 weeks gestation of pregnancy; K21.9 Gastro-esophageal reflux disease without esophagitis; G43.109 Migraine with aura, not intractable, without status migrainosus; F41.8 Other specified anxiety disorders; O99.62 Diseases of the digestive system complicating childbirth; O99.344 Other mental disorders complicating childbirth; O75.89 Other specified complications of labor and delivery; M41.9 Scoliosis, unspecified; Z59.89 Other problems related to housing and economic circumstances; O77.0 Labor and delivery complicated by meconium in amniotic fluid
CPT/HCPCS: 36415; 80053; 84112; 85027; 86850; 86900; 86901; 59025; 59200

== ENCOUNTER 2025-01-03 13:44 | Outpatient (REF) | payer MEDICAID, SELFPAY ==
--- NOTE | 2025-01-03 13:30 | PAPFT_PTH ---
PATIENT: Ely Mahmood LOC: [facility] U#:[id number] AGE/SX: 20 ROOM: RE01/03/[address]: Kate Wiggins CNM : 2005 BED: DIS: 01/03/2025 SPEC #: [id number] RECD: 01/03/25 18:14 STATUS: GLO REQ #: [id number] WINSOME: 01/03/25 13:[address]: Kate Wiggins DEPT: [facility] Cytology RECD BY: Riri Barger ENTERED: 01/03/25 18:14 SP TYPE: PAPFT OTHR DR: Unknown,Unknown Tissues: 1 - CX/ENDOCX FOR PAP SMEARS Procedures: PAP THIN PREP/UVM Screening Comments: [id number] (CHLAMYDIA/GC)
[2025-01-04 11:25] LABS: Chlamydia Result Negative (Negative); GC Result Negative (Negative)
== END 2025-01-03 13:45 | disposition home or self-care (01) ==
LOC: LBN 13:44
PROVIDERS: Visit Provider Advanced Practice Midwife
DX: Z39.1 Encounter for care and examination of lactating mother (principal); Z12.4 Encounter for screening for malignant neoplasm of cervix
CPT/HCPCS: 87491; 87591; 88142; 87480; 87510; 87660

== ENCOUNTER 2025-04-03 03:43 | Outpatient (CLI) | payer MEDICAID, SELFPAY ==
[2025-04-03 17:52] LABS: Abs Immature Grans 0.04 10^3/uL (0.0-0.06); HCT 40.5 % (36.0-46.0); HGB 13.4 g/dL (11.2-15.7); Immature Grans % 0.4 %; MCH 28.6 pg (27.0-33.0); MCHC 33.1 % (32.0-36.0); MCV 86 fL (80-95); MPV 11.0 fL (8.0-11.0); Platelet Count 179 10^3/uL (130-400); RBC 4.69 10^6/uL (3.93-5.22); RDW 12.2 % (11.7-14.6); RDW-SD 38.4 fL; WBC 10.17 10^3/uL (4.4-10.8)
[2025-04-03 20:19] LABS: Cannabinoids THC Negative (Negative); METHADONE URINE SCREEN Negative (Negative)
[2025-04-05 10:28] LABS: HIV-1/2 Ag & Ab Screen Negative (Negative)
[2025-04-05 10:49] LABS: HSV Type 2 Ab, IgG Negative (Negative)
[2025-04-05 10:54] LABS: Rubella IgG Ab (UVM) Positive (See Note)
[2025-04-05 11:42] LABS: Chlamydia Result Negative (Negative); GC Result Negative (Negative)
[2025-04-05 12:00] LABS: Hepatitis C Ab w Rflx HCV PCR Negative (Negative)
[2025-04-05 12:46] LABS: Fentanyl Scr w/Rfx Confirm Negative ng/mL (<1)
[2025-04-07 14:39] LABS: Syphilis IgG w/Reflex Nonreactive (Nonreactive)
== END 2025-04-03 03:44 | disposition home or self-care (01) ==
LOC: LBO 03:44 → LBN 18:50
PROVIDERS: Visit Provider Advanced Practice Midwife
DX: Z34.91 Encounter for supervision of normal pregnancy, unspecified, first trimester (principal)
CPT/HCPCS: 36415; 80307; 80348; 86787; 86803; 86850; 86900; 86901; 87340; 87389; 87491; 87591; 85025; 86695; 86696; 86762; 86780; 87086

== ENCOUNTER 2025-04-14 13:45 | Outpatient (CLI) | payer MEDICAID, SELFPAY | END 2025-04-14 13:46 | disposition home or self-care (01) | LOC: LBO 13:45 | PROVIDERS: Visit Provider Advanced Practice Midwife | DX: Z34.91 Encounter for supervision of normal pregnancy, unspecified, first trimester (principal) | CPT/HCPCS: 36415 ==

== ENCOUNTER → 2025-05-26 01:24 | Outpatient (CLI) | payer MEDICAID, SELFPAY ==
--- NOTE | 2025-05-26 06:30 | DI.US_ITS ---
Exam(s) US OB 2-3 TRIMESTER EXAM: US OB 2-3 TRIMESTER CLINICAL HISTORY: 19 wk anatomy survey,z34.90. TECHNIQUE: Transabdominal obstetrical ultrasound performed. COMPARISON: US POCUS EXAM from 02/28/2025 US POCUS EXAM from 03/14/2025 FINDINGS: Number of fetuses: 1 position: CEPHALIC Placental location: POST RT sided. No evidence of previa. BIOMETRIC DATA: BPD: 4.27cm mm, 18weeks 6days weeks HC: 15.91cm mm, 18weeks 5days weeks AC: 14.48cm mm, 19weeks 6days weeks FL: 2.9cm mm, 18weeks 6days weeks Cisterna magna: 3.8mm mm Cerebellum: 1.8cm cm Lateral ventricle: 6 mm EFW: 285.85g grams, 73.2% % Composite Age: 19weeks 1day weeks RUFINO: 10/19/2025 Heart Rate: 145bpm BPM Amniotic fluid: Amount of fluid is visually within normal limits. ANATOMICAL SURVEY: Four-chambered heart: Unremarkable. LVOT: Unremarkable. RVOT: Unremarkable. Left-sided stomach: Unremarkable. urinary bladder: Unremarkable. Bilateral kidneys: Unremarkable. Three-vessel cord: Unremarkable. Cord insertion: Unremarkable. Posterior fossa:Unremarkable. ventricles: Unremarkable. nose: Unremarkable. lips: Unremarkable. palate: Unremarkable. spine: Unremarkable. Two arms and two legs: Unremarkable. IMPRESSION: 1. Single live intrauterine gestation with ultrasound composite age of 19 weeks one day. 2. Normal anatomic survey. DATA REPOSITORY:
== END ==
LOC: DI 01:24
PROVIDERS: Visit Provider Advanced Practice Midwife
DX: Z34.91 Encounter for supervision of normal pregnancy, unspecified, first trimester (principal)
CPT/HCPCS: 76805